=== PATIENT | female | born 1975 | race Caucasian/White ===

== ENCOUNTER 2019-12-02 13:09 | Emergency (ER) | payer OTHER, SELFPAY ==
--- NOTE | ~2019-12-02 | XR_ITS ---
EXAMINATION: XR hand RT min 3V INDICATION: Right hand pain and swelling TECHNIQUE: Three views of the right hand are obtained. COMPARISON: None available FINDINGS: There is dorsal soft tissue swelling of the hand overlying the distal metacarpals. No fract ure, dislocation, or subluxation is identified. IMPRESSION: 1. Dorsal soft tissue swelling of the hand without underlying osseous abnormality. Reviewed, dictated and finalized at location A. IMPRESSION: 1. Dorsal soft tissue swelling of the hand without underlying osseous abnormali ty.
--- NOTE | ~2019-12-02 | XR_ITS ---
EXAMINATION: XR wrist RT min 3V INDICATION: Right wrist swelling and pain TECHNIQUE: Four views of the right wrist are obtained. COMPARISON: None available FINDINGS: There is no fracture, dislocation, or subluxation. Bone alignment is normal. There is dorsa l soft tissue swelling of the hand. IMPRESSION: 1. No acute osseous abnormality. Reviewed, dictated and finalized at location A.
[2019-12-02 13:13] VITALS: BP 102/68; PULSE 113; RESP 16; TEMP 36.8; O2SAT 100
--- NOTE | 2019-12-02 13:43 | ED.GENADULT ---
HPI - General Adult General Chief complaint: Extremity Injury, Upper Stated complaint: right hand injury Time Seen by Provider: 12/02/19 13:43 Source: patient and RN notes reviewed Mode of arrival: ambulatory Limitations: no limitations History of Present Illness HPI narrative: 44-year-old female presents with complaints of right hand and wrist pain with swelling for 1 day. Lu says she fell last night while carrying groceries and extended RT hand outward to break her fall and hit hand on car causing injury to RT hand. Pain has increased throughout the day. Ibuprofen (last this morning at 07:00) and Tylenol (last today at 13:50) with some relief. No radiation of pain. No loss of mobility. Exacerbating factors consist of movement and palpation. The relieving factors is immobility. Dominant hand is the RIGHT HAND. No suspected abuse. The patient reports she have not been diagnosed with COVID-19. The patient reports she is not waiting for the results of a COVID-19 lab test. The patient reports she do not have fever, chills, weakness, fatigue, myalgia, or facial swelling. The patient reports she do not have a new or worsening cough or shortness of breath. Denies chest pain. The patient reports she do not have any rhinorrhea, congestion, sore throat, nausea, vomiting, abdominal pain, and diarrhea. Tolerating po intake well. Denies recent traveling. Denies concerns for COVID-19 or exposures been home since [id number] order except for essential household needs, working, and return home. At this time, patient is not suspected of having COVID-19. Some parts of this dictation were generated by voice recognition software and may contain typographical and/or grammatical inaccuracies. Related Data Home Medications Medication Instructions Recorded Confirmed escitalopram oxalate 20 mg PO DAILY 12/02/19 12/02/19 gabapentin 300 mg PO TID 12/02/19 12/02/19 lacosamide [Vimpat] 100 mg PO Q12H 12/02/19 12/02/19 lamotrigine 200 mg PO BID 12/02/19 12/02/19 lorazepam 0.5 mg PO BID PRN 12/02/19 12/02/19 pregabalin 75 mg PO TID 12/02/19 12/02/19 zolpidem 5 mg PO HS PRN 12/02/19 12/02/19 Allergies Allergy/AdvReac Type Severity Reaction Status Date / Time Penicillins Allergy Intermediate Swelling Verified 12/02/19 13:24 Sulfa (Sulfonamide Allergy Intermediate Swelling Verified 12/02/19 13:24 Antibiotics) tramadol Allergy Mild Rash Verified 12/02/19 13:24 Review of Systems Review of Systems: Narrative: CONSTITUTIONAL: Denies fever, chills, sweats. EYES: Denies visual changes, redness, discharge. ENT: Denies rhinorrhea, congestion, sore throat, otalgia. CARDIOVASCULAR: Denies chest pain, palpitations, edema. RESPIRATORY: Denies dyspnea, wheezing, cough. GASTROINTESTINAL: Denies abdominal pain, nausea, vomiting, diarrhea. GENITOURINARY: Denies dysuria, hematuria, abnormal discharge. SKIN: Denies rash or itching. MUSCULOSKELETAL: Denies acute back pain or myalgia. Complains of Right hand and wrist pain with swelling. NEUROLOGIC: Denies numbness or focal weakness. PSYCHIATRIC: Denies anxiety or depression. All other systems reviewed & are unremarkable except as noted in HPI and below. FORMERLY [facility] Past Medical History Medical History (Updated 12/03/19 @ 00:00 by [facility] Date[facility]za) Breast cancer Depression Epilepsy History of recent chemotherapy Finished 10/14/19 Surgical History Surgical History (Updated 12/02/19 @ 15:32 by ARVIND Gomez) History of lumpectomy of right breast History of ovarian cystectomy Bilateral 2001 and 2002 History of tubal ligation Hx of appendectomy 1993 Family History Family History (Updated 12/06/19 @ 23:49 by ARVIND Gomez) Mother Hypertension Family history of diabetes mellitus in first degree relative Interstitial lung disease Father Asthma Grandparent Carcinoma of colon Social History Social History (Updated 12/02/19 @ 15:33 by Wallace Vicente
[2019-12-02] MEDS: KETOROLAC (*BKC) 60 MG/2 ML VIAL IM (14:03)
== END 2019-12-02 14:23 | disposition home or self-care (01) ==
PROVIDERS: Emergency Provider Nurse Practitioner Family; PCP Nurse Practitioner Family
DX: S63.501A Unspecified sprain of right wrist, initial encounter (principal); S63.91XA Sprain of unspecified part of right wrist and hand, initial encounter; Z85.3 Personal history of malignant neoplasm of breast; F32.9 Major depressive disorder, single episode, unspecified; G40.909 Epilepsy, unspecified, not intractable, without status epilepticus; Z92.21 Personal history of antineoplastic chemotherapy; W01.198A Fall on same level from slipping, tripping and stumbling with subsequent striking against other object, initial encounter
CPT/HCPCS: 73110; 73130; 96372; 99213; G0463; J1885

== ENCOUNTER 2021-06-12 08:03 | Emergency (ER) | payer OTHER, SELFPAY ==
[2021-06-12 08:10] VITALS: BP 113/80; PULSE 98; RESP 20; TEMP 36.7; O2SAT 100
--- NOTE | 2021-06-12 08:19 | ED.ALLEREA ---
HPI - Allergic Reaction General Chief complaint: Allergic Reaction Stated complaint: allergic reaction History of Present Illness HPI narrative: This is a 45-year-old female presents to the urgent care with an allergic reaction states that it started today she took nothing for her symptoms patient states she woke up with whelps and itching on her abdomen as well as her tongue feels thick and she feels like her tongue is itching. Patient denies using anything new no new medications no new perfumes no new lotions no new soaps no new detergents does not know what it is from patient states that she has had this happen recently last week Related Data Home Medications Medication Instructions Recorded Confirmed escitalopram oxalate 20 mg PO DAILY 12/02/19 12/02/19 gabapentin 300 mg PO TID 12/02/19 12/02/19 lacosamide [Vimpat] 100 mg PO Q12H 12/02/19 12/02/19 lamotrigine 200 mg PO BID 12/02/19 12/02/19 lorazepam 0.5 mg PO BID PRN 12/02/19 12/02/19 pregabalin 75 mg PO TID 12/02/19 12/02/19 zolpidem 5 mg PO HS PRN 12/02/19 12/02/19 Allergies Allergy/AdvReac Type Severity Reaction Status Date / Time Penicillins Allergy Intermediate Difficulty Verified 06/12/21 08:40 Breathing Sulfa (Sulfonamide Allergy Intermediate Swelling Verified 06/12/21 08:40 Antibiotics) tramadol Allergy Mild Rash Verified 06/12/21 08:40 Review of Systems Eyes: Comments: Urticaria, whelps, complaint feeling tongue itchy and slightly swollen All other extremities reviewed and are negative [facility] Past Medical History Medical History (Updated 06/12/21 @ 09:04 by Dianne Hickey NP) Breast cancer Depression Epilepsy History of recent chemotherapy Finished 10/14/19 Surgical History Surgical History (Updated 12/02/19 @ 15:32 by ARVIND Gomez) History of lumpectomy of right breast History of ovarian cystectomy Bilateral 2001 and 2002 History of tubal ligation Hx of appendectomy 1993 Family History Family History (Updated 12/06/19 @ 23:49 by ARVIND Gomez) Mother Hypertension Family history of diabetes mellitus in first degree relative Interstitial lung disease Father Asthma Grandparent Carcinoma of colon Social History Social History (Updated 12/02/19 @ 15:33 by ARVIND Gomez) Smoking status: Never smoker Second hand tobacco smoke exposure: No Alcohol intake: never Gender identity (if verbalized by the patient): Female Comments At time as signature, I have reviewed and agree with nursing past medical, social, surgical and family history. Please see nursing chart for further information. There is no relevant family history pertinent to the presenting complaint. Exam Narrative: GENERAL:Well-appearing, well-nourished, and in no acute distress. HEAD:Normocephalic, atraumatic. EYES: PERRLA and EOMI. ENT: Nares clear, no rhinorrhea or epistaxis. Mucous membranes moist. CHEST: Clear to auscultation. No respiratory distress. HEART: Regular rate and rhythm. Normal peripheral pulses. ABDOMEN: Soft, nontender, nondistended, normal active bowel sounds. EXTREMITIES: Normal range of motion. No edema. SKIN: Warm, dry, positive for itching, whelps all over her body mainly her abdomen small bumps noted on time with urticaria rash. NEURO: No focal deficits. Alert and oriented x3. Course Vital Signs Vital signs: Vital Signs Temperature 98.0 F 06/12/21 08:10 Pulse Rate 98 06/12/21 08:10 Respiratory Rate 20 06/12/21 08:10 Blood Pressure 113/80 06/12/21 08:10 Pulse Oximetry 100 06/12/21 08:10 Temperature 98.0 F 06/12/21 08:10 Pulse Rate 98 06/12/21 08:10 Respiratory Rate 20 06/12/21 08:10 Blood Pressure 113/80 06/12/21 08:10 Pulse Oximetry 100 06/12/21 08:10 MDM - Allergic Reaction Differential Diagnosis Differential diagnosis: Likely anaphylaxis, allergic reaction, angioedema, contact dermatitis and adverse reaction to drug Discharge
[2021-06-12] MEDS: diphenhydrAMINE HCl CAP 25 MG CAPSULE 50 MG PO (08:30)
== END 2021-06-12 09:05 | disposition home or self-care (01) ==
PROVIDERS: Emergency Provider Nurse Practitioner Family; PCP Nurse Practitioner Family
DX: L50.0 Allergic urticaria (principal); Z85.3 Personal history of malignant neoplasm of breast; G40.909 Epilepsy, unspecified, not intractable, without status epilepticus; F32.A Depression, unspecified; Z92.21 Personal history of antineoplastic chemotherapy
CPT/HCPCS: 96372; 99213; A9270; G0463; J1100

== ENCOUNTER 2022-03-17 15:14 | Emergency (ER) | payer OTHER, SELFPAY ==
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
[2022-03-17 15:20] VITALS: BP 128/95; PULSE 102; RESP 14; TEMP 36.6; O2SAT 100
== END 2022-03-17 16:41 | disposition home or self-care (01) ==
PROVIDERS: Emergency Provider Nurse Practitioner Family; PCP Nurse Practitioner Family
DX: S22.41XA Multiple fractures of ribs, right side, initial encounter for closed fracture (principal); V48.5XXA Car driver injured in noncollision transport accident in traffic accident, initial encounter; F32.A Depression, unspecified; G40.909 Epilepsy, unspecified, not intractable, without status epilepticus; Z85.3 Personal history of malignant neoplasm of breast; Z90.11 Acquired absence of right breast and nipple; Z92.21 Personal history of antineoplastic chemotherapy
CPT/HCPCS: 71101; 99213; G0463

== ENCOUNTER 2022-04-10 16:39 | Emergency (ER) | payer OTHER, SELFPAY ==
[2022-04-10 16:46] VITALS: BP 112/77; PULSE 106; RESP 16; TEMP 37.3; O2SAT 100
--- NOTE | 2022-04-10 16:58 | ED.EXTPRO ---
HPI - Extremity Problem General Chief complaint: Extremity Problem,Nontraumatic Stated complaint: Right foot big toe pain Time Seen by Provider: 04/10/22 16:50 Source: patient Mode of arrival: ambulatory Limitations: no limitations History of Present Illness HPI Narrative: Ms. Morillo is a 46-year-old female patient presenting to the clinic today with complaints of right great toe pain x2 days. She reports that that she initially thought she may have a ingrown toenail infection however the pain has went to the joint and is very tender and painful. Reports a lot of pain with movement. Related Data Home Medications Medication Instructions Recorded Confirmed escitalopram oxalate 20 mg tablet 20 mg PO DAILY 12/02/19 04/10/22 lamotrigine 200 mg tablet 200 mg PO BID 12/02/19 04/10/22 zolpidem 5 mg tablet 5 mg PO HS PRN Sleep 12/02/19 04/10/22 Allergies Allergy/AdvReac Type Severity Reaction Status Date / Time Penicillins Allergy Intermediate Difficulty Verified 03/17/22 15:27 Breathing Sulfa (Sulfonamide Allergy Intermediate Swelling Verified 03/17/22 15:27 Antibiotics) tramadol Allergy Mild Rash Verified 03/17/22 15:27 Review of Systems Review of Systems: Pertinent positives per HPI. Patient denies any fever, chills, rash, headache, visual changes, dizziness, cough, runny nose, sore throat, shortness of breath, chest pain, palpitations, nausea, vomiting, diarrhea, constipation, abdominal pain, or any urinary issues. PMF Past Medical History Medical History Breast cancer Depression Epilepsy History of recent chemotherapy Finished 10/14/19 Surgical History Surgical History History of lumpectomy of right breast History of ovarian cystectomy Bilateral 2001 and 2002 History of tubal ligation Hx of appendectomy 1993 Family History Family History Mother Hypertension Family history of diabetes mellitus in first degree relative Interstitial lung disease Father Asthma Grandparent Carcinoma of colon Social History Social History (Reviewed 04/10/22 @ 17:09 by Yinka Blancas APRNKinza Smoking status: Never smoker Second hand tobacco smoke exposure: No Alcohol intake: never Gender identity (if verbalized by the patient): Female Comments At the time of my signature, I reviewed and agree with the nursing past medical, surgical, social, and family history. There is no relevant family history pertinent to the patient complaint. Exam Narrative: General: Well-developed, well nourished, in no apparent distress Head: Normocephalic, atraumatic. Cardio: Regular rate and rhythm, s1 and s2 normal, no murmur appreciated. Resp: Clear to auscultation bilaterally, no rhonchi, rales, wheezing or rubs. Musculoskeletal: No deformity, redness, mild erythema, and swelling to the proximal joint of the right great toe, very painful to palpation and is unable to flex or extend the toe against resistance due to pain , muscle strength strong and equal, peripheral pulse strong, no edema, no cyanosis, normal gait and station Course Course Emergency Course: Portions of this record may have been created with voice recognition software. Level of Care: Express Care Visit Vital Signs Vital signs: Vital Signs Temperature 37.3 C 04/10/22 16:46 Pulse Rate 106 H 04/10/22 16:46 Respiratory Rate 16 04/10/22 16:46 Blood Pressure 112/77 04/10/22 16:46 Pulse Oximetry 100 04/10/22 16:46 Oxygen Delivery Room Air 04/10/22 16:46 Temperature 37.3 C 04/10/22 16:46 Pulse Rate 106 H 04/10/22 16:46 Respiratory Rate 16 04/10/22 16:46 Blood Pressure 112/77 04/10/22 16:46 Pulse Oximetry 100 04/10/22 16:46 Oxygen Delivery Room Air 04/10/22 16:46 Vital signs reviewed MDM - Extremity
== END 2022-04-10 17:10 | disposition home or self-care (01) ==
PROVIDERS: Emergency Provider Nurse Practitioner Family; PCP Nurse Practitioner Family
DX: M79.674 Pain in right toe(s) (principal); G40.909 Epilepsy, unspecified, not intractable, without status epilepticus; Z85.3 Personal history of malignant neoplasm of breast; Z92.21 Personal history of antineoplastic chemotherapy
CPT/HCPCS: 99213; G0463

== ENCOUNTER 2023-06-01 12:49 | Emergency (ER) | payer OTHER, SELFPAY ==
--- NOTE | ~2023-06-01 | XR_ITS ---
EXAMINATION: XR ribs RT 2V w CXR 2V INDICATION: Chest pain after fall TECHNIQUE: PA and lateral views of the chest and 3 views of the right ribs were obtained. COMPARISON: 03/02/2013 FINDINGS: The lungs are free of acute opacities. No pleural effusion or pneumothorax. An implant and surgical clips are noted in the right breast. There also appear to be surgical changes of the left br east. Healed left rib fractures are noted. No acute right rib fractures are seen. IMPRESSION: 1. No acute cardiopulmonary abnormality or evidence of displaced rib fracture. Reviewed, dictated and finalized at location A. SALTER
[2023-06-01 13:05] VITALS: BP 134/92; PULSE 110; RESP 20; TEMP 37.8; O2SAT 100
--- NOTE | 2023-06-01 13:31 | ED.BACK ---
HPI - Back Pain/Injury General Chief Complaint: Back Pain/Injury Stated Complaint: Fall Injury/Right Rib Pain Source: patient and RN notes reviewed History of Present Illness HPI Narrative: 47 yo F presents to urgent care with complaints of right mid back pain and right lateral rib pain. Pt states she fell backwards on the ice while ice skating 1 week ago. Pt denies any head injury or neck pain. Pt reports increased pain with deep inhalation, coughing, and any movements of her torso or right arm. Pt was noted to have a slight fever in clinic. Pt admits to having a sore throat x 2-3 days. Pt states her son had strep throat a couple weeks ago. Denies any ear pain, SOB, chest pain, N/V/D, or abdominal pain. Pt has been taking ibuprofen and Tylenol at home with minimal relief of pain. Related Data Home Medications Medication Instructions Recorded Confirmed escitalopram oxalate 20 mg tablet 20 mg PO DAILY 12/02/19 04/10/22 lamotrigine 200 mg tablet 200 mg PO BID 12/02/19 04/10/22 zolpidem 5 mg tablet 5 mg PO HS PRN Sleep 12/02/19 04/10/22 Allergies Allergy/AdvReac Type Severity Reaction Status Date / Time Penicillins Allergy Intermediate Difficulty Verified 03/17/22 15:27 Breathing Sulfa (Sulfonamide Allergy Intermediate Swelling Verified 03/17/22 15:27 Antibiotics) tramadol Allergy Mild Rash Verified 03/17/22 15:27 Review of Systems Review of Systems: CONSTITUTIONAL: Denies fever, chills, or sweats. EYES: Denies visual changes, redness, or discharge. ENT: Denies otalgia CARDIOVASCULAR: Denies chest pain, palpitations, or edema. RESPIRATORY: Denies dyspnea. GASTROINTESTINAL: Denies abdominal pain, nausea, vomiting, or diarrhea. GENITOURINARY: Denies dysuria or hematuria. SKIN: Denies rash or itching. MUSCULOSKELETAL: Right mid back pain NEUROLOGIC: Denies headache, numbness, or weakness. Pertinent positives per HPI. [facility] Past Medical History Medical History Breast cancer Depression Epilepsy History of recent chemotherapy Finished 10/14/19 Surgical History Surgical History History of lumpectomy of right breast History of ovarian cystectomy Bilateral 2001 and 2002 History of tubal ligation Hx of appendectomy 1993 Family History Family History Mother Hypertension Family history of diabetes mellitus in first degree relative Interstitial lung disease Father Asthma Grandparent Carcinoma of colon Social History Social History Smoking status: Never smoker Second hand tobacco smoke exposure: No Alcohol intake: never Living arrangements: with family Gender identity (if verbalized by the patient): Female Comments At the time of my signature, I reviewed and agree with the nursing past medical, surgical, social, and family history. There is no relevant family history pertinent to the patient complaint. Exam Narrative: GENERAL: This is a well-nourished, well-developed patient, in no apparent distress. HEAD: normocephalic, atraumatic. EYES: Sclera clear/white. Vision is grossly intact. EARS: External ears normal, auditory canals clear and without drainage, TMs normal without perforation. Hearing grossly intact. NOSE: External nose normal with no obvious nasal discharge, nares without redness, no rhinorrhea. THROAT: Mucous membranes moist, posterior pharynx erythremic. NECK: Neck supple, non-tender without lymphadenopathy, masses or thyromegaly. CARDIOVASCULAR: Regular rate and rhythm without murmurs, gallops, or rubs. RESPIRATORY: Clear to auscultation. Breath sounds equal bilaterally. No wheezes, rales, or rhonchi. GASTROINTESTINAL: Abdomen soft, non-tender, nondistended. Bowel sounds are active. No hepato-splenomegaly, or pa
== END 2023-06-01 14:00 | disposition home or self-care (01) ==
PROVIDERS: Emergency Provider Nurse Practitioner Family; PCP Nurse Practitioner Family
DX: B34.9 Viral infection, unspecified (principal); S20.211A Contusion of right front wall of thorax, initial encounter; Z85.3 Personal history of malignant neoplasm of breast; W00.0XXA Fall on same level due to ice and snow, initial encounter; Y93.21 Activity, ice skating
CPT/HCPCS: 71046; 71100; 87081; 87880; 99213; G0463

== ENCOUNTER 2024-07-08 17:21 | Emergency (ER) | payer OTHER, SELFPAY ==
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
[2024-07-08 17:34] VITALS: BP 126/92; PULSE 103; RESP 16; TEMP 36.9; O2SAT 96
== END 2024-07-08 17:45 | disposition short-term general hospital (02) ==
PROVIDERS: Emergency Provider Nurse Practitioner; PCP Nurse Practitioner Family
DX: S09.90XA Unspecified injury of head, initial encounter (principal); Y04.0XXA Assault by unarmed brawl or fight, initial encounter; G40.909 Epilepsy, unspecified, not intractable, without status epilepticus; F32.A Depression, unspecified; Z85.3 Personal history of malignant neoplasm of breast; Z90.11 Acquired absence of right breast and nipple; Z92.21 Personal history of antineoplastic chemotherapy
CPT/HCPCS: 99212; G0463

== ENCOUNTER 2024-08-23 15:46 | Emergency (ER) | payer OTHER, SELFPAY ==
--- NOTE | ~2024-08-23 | XR_ITS ---
EXAMINATION: XR foot LT min 3V DATE: 08/23/2024 16:21 INDICATION: Left foot injury post fall down steps TECHNIQUE: Dorsoplantar, two oblique and lateral views of the left foot were obtained. COMPARISON: None. FINDINGS: Bone alignment is normal. Suggestion of an old healed fracture of the second metatarsal diaphysis. No acute fractures. Mild osteoarthritis at the tarsometatarsal, metatarsophalangeal and interphalangeal joints. Soft tissues are unremarkable. IMPRESSION: 1. Mild polyarticular osteoarthritis in the mid and forefoot. No acute osseous abnormality. Reviewed, dictated and finalized at location A. CAL CLAIMS EXAMINER
[2024-08-23 15:58] VITALS: BP 100/62; PULSE 112; RESP 16; TEMP 36.7; O2SAT 99
--- NOTE | 2024-08-23 16:23 | ED_ITS ---
HPI - Extremity Injury (Lower) General Chief Complaint: Extremity Injury, Lower Stated Complaint: Fall Injury/Left Foot Time Seen by Provider: 08/23/24 16:25 Source: patient, RN notes reviewed and old records reviewed Mode of arrival: ambulatory (placed in wheelchair on arrival) Limitations: no limitations History of Present Illness HPI Narrative: 49 year old female who presents to [facility] with complaints of falling down stairs at home at 0400 this morning. Patient reports that she had lotion on her feet and she thinks that may of caused her to slip down the 2 steps. Patient reports pain to the dorsal area of her left foot no bruising or obvious deformity noted, strong pedal pulse left foot. MD complaint: foot injury (left) Onset (ago): day(s) (fell down 2 steps atabout 0400) Injury: Left: foot (dorsal) Type of Injury: blunt Place: home Severity: moderate Exacerbating factors: weight bearing and movement Treatments prior to arrival: cold therapy, NSAIDS and other (Tylenol) Related Data Home Medications ?Medication ?Instructions ?Recorded ?Confirmed ?Last Taken ?Type escitalopram oxalate 20 mg tablet 20 mg PO DAILY 12/02/19 04/10/22 Unknown History lamotrigine 200 mg tablet 200 mg PO BID 12/02/19 04/10/22 Unknown History zolpidem 5 mg tablet 5 mg PO HS PRN Sleep 12/02/19 04/10/22 Unknown History bupropion HCl 150 mg tablet,12 hr mg PO 07/08/24 Unknown History sustained-release Allergies Allergy/AdvReac Type Severity Reaction Status Date / Time Penicillins Allergy Intermediate Difficulty Verified 03/17/22 15:27 Breathing Sulfa (Sulfonamide Allergy Intermediate Swelling Verified 03/17/22 15:27 Antibiotics) tramadol Allergy Mild Rash Verified 03/17/22 15:27 Review of Systems Review of Systems: CONSTITUTIONAL: Denies fever, chills, or sweats. EYES: Denies visual changes, redness, or discharge. ENT: Denies rhinorrhea, congestion, sore throat, or otalgia. CARDIOVASCULAR: Denies chest pain, palpitations, or edema. RESPIRATORY: Denies cough or dyspnea. GASTROINTESTINAL: Denies abdominal pain, nausea, vomiting, or diarrhea. GENITOURINARY: Denies dysuria or hematuria. SKIN: Denies rash or itching. MUSCULOSKELETAL: Denies back pain, positive for pain to the dorsal aspect of le ft foot., or myalgia. NEUROLOGIC: Denies headache, numbness, or weakness. PSYCHIATRIC: Reports history of anxiety or depression. All systems reviewed & are unremarkable except as noted in HPI and below PMFSH Past Medical History Medical History Depression Epilepsy History of recent chemotherapy Finished 10/14/19 Breast cancer Surgical History Surgical History History of ovarian cystectomy Bilateral 2001 and 2002 History of tubal ligation Hx of appendectomy 1993 History of lumpectomy of right breast Family History Family History Mother Hypertension Family history of diabetes mellitus in first degree relative Interstitial lung disease Father Asthma Grandparent Carcinoma of colon Social History Social History Smoking status: Never smoker Second hand tobacco smoke exposure: No Alcohol intake: never Living arrangements: with family Gender identity (if verbalized by the patient): Female Comments At time of signature, agree with nursing past medical, surgical, social and f amily history. There is no relevant family history pertinent to the presenting complaint Exam Narrative: GENERAL: Well-appearing, well-nourished, and in no acute distress. HEAD: Normocephalic, atraumatic. EYES: PERRLA and EOMI. ENT: Nares clear, no rhinorrhea or epistaxis. Mucous membranes moist. NECK: Supple.no lymphadenopathy CHEST: Clear to auscultation. No respiratory distress. SAO2 99% on room air HEART: Regular rate and rhythm. No murmur heard. Normal peripheral pulses. ABDOMEN: Soft, nontender, nondistended, normal active bowel sounds. EXTREMITIES: Normal range of motion. No edema.pain to the dorsal aspect of her left foot minimal swelling no bruising noted, patient is able to flex and extend toes circulation and sensation is intact. SKIN: Warm, dry, no rash. NEURO: No focal deficits. Alert and oriented x3. Course Course Emergency Course: Patient is aware of diagnosis, understands and agrees to treatment plan.? Anticipatory guidance given.? Patient agrees to follow-up as directed and is aware of reasons to seek care at the emergency department. Portions of this record may have been created with voice recognition software Level of Care: Express Care Visit Vital Signs Vital signs: Vital Signs Temperature 36.7 C 08/23/24 15:58 Pulse Rate 112 H 08/23/24 15:58 Respiratory Rate 16 08/23/24 15:58 Blood Pressure 100/62 08/23/24 15:58 Pulse Oximetry 99 08/23/24 15:58 Oxygen Delivery Room Air 08/23/24 15:58 Temperature 36.7 C 08/23/24 15:58 Pulse Rate 112 H 08/23/24 15:58 Respiratory Rate 16 08/23/24 15:58 Blood Pressure 100/62 08/23/24 15:58 Pulse Oximetry 99 08/23/24 15:58 Oxygen Delivery Room Air 08/23/24 15:58 Reviewed MDM - Extremity Injury (Lower) Differential Diagnosis Differential diagnosis: Likely other (foot fracture, pain to left foot, contusion of left dorsal foot,) Medical Records Attestation: I reviewed the patient's medical records. Imaging Data Attestation: I personally reviewed and interpreted this imaging study as follows: My impression: no acute osseous abnormality some mild osteoarthritis to mid and forefoot left foot Radiologist's impression: Launch?Image [facility] [employer] [place] [id number] XRay Report Signed Patient: Lu Morillo : 1975 MR#: [id number] Age: 49 Acct:[id number] Loc: [facility] ADM Date: 08/23/24Attending Dr: Ordering Physician: Harriet Ramos APRN Date of Service: 08/23/24 Procedure(s): XR foot LT min 3V Accession Number(s): [id number] cc: ALETA,ARIANNE MEDINA; Harriet Ramos APRN~ EXAMINATION: XR foot LT min 3V DATE: 08/23/2024 16:21 INDICATION: Left foot injury post fall down steps TECHNIQUE: Dorsoplantar, two oblique and lateral views of the left foot were obtained. COMPARISON: None. FINDINGS: Bone alignment is normal. Suggestion of an old healed fracture of the second metatarsal diaphysis. No acute fractures. Mild osteoarthritis at the tarsometatarsal, metatarsophalangeal and interphalangeal joints. Soft tissues are unremarkable. IMPRESSION: 1. Mild polyarticular osteoarthritis in the mid and forefoot. No acute osseous abnormality. Reviewed, dictated and finalized at location A. F BUSINESS DEVELOPMENT OFFICER Please be advised this is a medical document. It is intended for [id number] communication. It is written in medical language and may contain unfamiliar abbreviations or verbiage. Medical documents are intended to carry relevant information, facts as evident, and the clinical opinion of the practitioner at the time of the encounter. This report may have been done utilizing a voice recognition system. Attempts have been made to correct errors. However, there may be uncorrected grammatical, spelling, and recognition errors present. The file time of this note does not necessarily represent the time of service. Dictated By: Zay Sarabia MD 08/23/24 1622 Signed By: <Electronically signed by Zay Sarabia MD in OV> Critical Care Time Critical Care Time Critical Care Time: No Discharge Plan Discharge Clinical Impression: Contusion of foot, left Qualifiers: Encounter type: initial encounter Qualified Code(s): S90.32XA - Contusion of left foot, initial encounter Patient Disposition: Home, Self-Care Condition: Stable Instructions: Antibiotic Form, Foot Contusion (ED) Additional Instructions: Elastic wrap or orthopedic splint as directed for comfort for the next 5-7 days Tylenol for lesser pain Ibuprofen regularly for the next 2-3 days for the inflammation keep left foot elevated as much as possible for the next few days Follow-up with orthopedic surgeon if no improvement in symptoms Follow-up with PCP if further problems or concerns Ice to the area 20-30 minutes 4-6 times a day Elevate above heart If your symptoms persist, change or worsen significantly before you can contact your personal physician then please, without delay[facility] Follow-up with PCP in 7-10 days or sooner if needed Patient Language: Ukrainian Prescriptions: No Action cetirizine [Zyrtec] 10 mg tablet 10 mg PO DAILY PRN (Reason: angioedema) Qty: 30 0RF colchicine [Colcrys] 0.6 mg tablet 0.6 mg PO DAILY Qty: 3 0RF Rx Instructions: take 2 tabs (1.2mg)x1 dose then take 1 tab (0.6mg)one hour later prednisone 20 mg tablet 40 mg PO DAILY 5 Days Qty: 10 0RF cyclobenzaprine 10 mg tablet 10 mg PO TID PRN (Reason: muscle spasm) Qty: 10 0RF hydrocodone-acetaminophen 5-325 mg tablet 1 tablet PO Q6H PRN (Reason: pain) Qty: 14 0RF zolpidem 5 mg Tablet 5 mg PO HS PRN (Reason: Sleep) lamotrigine 200 mg Tablet 200 mg PO BID escitalopram oxalate 20 mg Tablet 20 mg PO DAILY bupropion HCl 150 mg tablet sustained-release 12 hr PO Follow-up/Referrals: Alarcon,Arianne Parks APN [Primary Care Provider] - Time of Disposition: 16:41 Quality [place] Coma Scale Eyes: Open Verbal: Oriented and Alert Motor: Follows Commands Jose Coma Total Score: 15
--- OUTSIDE RECORDS SUMMARY | 2024-08-23 18:09 | XMS_ITS | Encounter Summary ---
Author Organization [facility] Address [address] [place] [address] Phone Care Team Providers Care Appointment Setter Name Role Phone Jack Dukes MD Unavailable [phone] Arianne Alarcon APRN, CARTON MAKING MACHINE OPERATOR Primary Care Provider [phone] Lito Chatterjee MD Unavailable [phone] Gustabo Falk MD Unavailable [phone] Amrit Goddard MD Unavailable Phan Grant MD Unavailable [phone] Reason for Visit * Reason Comments Medication Refill Encounter Details Date Type Department Care Team (Late st Contact Info) Description 12/06/2020 Refill [facility] - Neurology - [place] [address] [place] [address] Jack Dukes MD [address] [place] [address] Medication Refill Social History Tobacco Use Types Packs/Day Years Used Date Smoking Tobacco: Never Smokeless Tobacco: Never Alcohol Use Standard Drinks/Week Comments No 0 (1 standard drink = 0.6 oz pur e alcohol) Comments No Sex and Gender Information Value Date Recorded Sex Assigned at Not on file Legal Sex Female 2:52 AM COMMERCIAL FINANCE MANAGER Gender Identity Not on file Sexual Orientation Not on file 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 No / Unsure 11/20/2020 6:52 AM CDT documented as of this encounter Plan of Treatment Upcoming Encounters Date Type Department Care Team (Late st Contact Info) Description 08/24/2024 2:45 PM COMMERCIAL FINANCE MANAGER Telemedicine [facility] Neurology [facility] [address] [place] [address] Jack Dukes MD [address] [place] [address] 08/26/2024 1:20 PM COMMERCIAL FINANCE MANAGER Office Visit [facility] Oncology Services [address] [place] [id number] Phan Grant MD [address] [place], [place] [id number] Discharge Disposition: Discharged to home or Selfcare documented as of this encounter Visit Diagnoses Diagnosis 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) documented in this encounter Care Teams Appointment Setter Relationship Specialty Start Date End Date Arianne Alarcon APRN, ROMEL [address] [place] [address] PCP - General Family Medicine 08/29/16 Jack Dukes MD [address] [place] [address] Consulting Physician Neurology 08/21/16 Lito Chatterjee MD [address] [place] [address] Consulting Physician General Surgery 04/27/19 Gustabo Falk MD [address] [address] Consulting Physician Radiation Oncology 04/27/19 Amrit Goddard MD [address] [address] Consulting Physician General Surgery 06/08/19 Phan Grant MD [address] [place] [address] Consulting Physician Medical Oncology 02/16/20 documented as of this encounter
--- OUTSIDE RECORDS SUMMARY | 2024-08-23 18:09 | XMS_ITS | Encounter Summary ---
Author Organization [facility] Address [address] [place] [address] Phone Care Team Providers Care Crop And Soil Technician Name Role Phone Jack Dukes MD Unavailable [phone] Arianne Alarcon APRN, RV REPAIRER Primary Care Provider [phone] Lito Chatterjee MD Unavailable [phone] Gustabo Falk MD Unavailable [phone] Amrit Goddard MD Unavailable Phan Grant MD Unavailable [phone] Reason for Visit * Reason Comments Medication Refill Encounter Details Date Type Department Care Team (Late st Contact Info) Description 11/17/2020 Refill [facility] - Neurology - [place] [address] [place] [address] Jack Dukes MD [address] [place] [address] Medication Refill Social History Tobacco Use Types Packs/Day Years Used Date Smoking Tobacco: Never Smokeless Tobacco: Never Alcohol Use Standard Drinks/Week Comments No 0 (1 standard drink = 0.6 oz pur e alcohol) Comments No Sex and Gender Information Value Date Recorded Sex Assigned at Not on file Legal Sex Female 2:52 AM [employer] Gender Identity Not on file Sexual Orientation Not on file 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 Not on file Not on file Not [...] st Contact Info) Description 08/24/2024 2:45 PM [employer] Telemedicine [facility] Neurology [facility] [address] [place] [address] Jack Dukes MD [address] [place] [address] 08/26/2024 1:20 PM [employer] Office Visit [facility] Oncology Services [address] [place] [id number] Phan Grant MD [address] [place], [place] [id number] Discharge Disposition: Discharged to home or Selfcare documented as of this encounter Visit Diagnoses Diagnosis Seizures (HCC) Other convulsions documented in this encounter Care Teams Crop And Soil Technician Relationship Specialty Start Date End Date Arianne Alarcon APRN, ROMEL [address] [place] [address] PCP - General Family Medicine 08/29/16 Jack Dukes MD [address] [place] [address] Consulting Physician Neurology 08/21/16 Lito Chatterjee MD [address] [place] [address] Consulting Physician General Surgery 04/27/19 Gustabo Falk MD [address] [address] Consulting Physician Radiation Oncology 04/27/19 Amrit Goddard MD [address] [address] Consulting Physician General Surgery 06/08/19 Phan Grant MD [address] [place] [address] Consulting Physician Medical Oncology 02/16/20 documented as of this encounter
--- OUTSIDE RECORDS SUMMARY | 2024-08-23 18:09 | XMS_ITS | Encounter Summary ---
Author Organization [facility] Address [address] [place] [address] Phone Care Team Providers Care Marketing Effectiveness Manager Name Role Phone Jack Dukes MD Unavailable [phone] Arianne Alarcon APRN, TERRITORY MANAGER GENERAL SALES Primary Care Provider [phone] Lito Chatterjee MD Unavailable [phone] Gustabo Falk MD Unavailable [phone] Amrit Goddard MD Unavailable Phan Grant MD Unavailable [phone] Reason for Visit * Reason Comments Medication Refill Encounter Details Date Type Department Care Team (Late st Contact Info) Description 05/30/2021 Refill [facility] - Neurology [facility] [address] [place] [address] Jack Dukes MD [address] [place] [address] Medication Refill Social History Tobacco Use Types Packs/Day Years Used Date Smoking Tobacco: Never Smokeless Tobacco: Never Alcohol Use Standard Drinks/Week Comments No 0 (1 standard drink = 0.6 oz pur e alcohol) Comments No Sex and Gender Information Value Date Recorded Sex Assigned at Not on file Legal Sex Female 2:52 AM BOARD CERTIFIED FAMILY PHYSICIAN Gender Identity Not on file Sexual Orientation Not on file 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 No / Unsure 05/22/2021 11:16 PM BOARD CERTIFIED FAMILY PHYSICIAN documented as of this encounter Plan of Treatment Upcoming Encounters Date Type Department Care Team (Late st Contact Info) Description 08/24/2024 2:45 PM BOARD CERTIFIED FAMILY PHYSICIAN Telemedicine [facility] [address] [place] [address] Jack Dukes MD [address] [place] [address] 08/26/2024 1:20 PM BOARD CERTIFIED FAMILY PHYSICIAN Office Visit 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) documented in this encounter Care Teams Marketing Effectiveness Manager Relationship Specialty Start Date End Date Arianne Alarcon APRN, CNP [address] [place] [address] PCP - General Family Medicine 08/29/16 Jack Dukes MD [address] [place] [address] Consulting Physician Neurology 08/21/16 Lito Chatterjee MD [address] [place] [address] Consulting Physician General Surgery 04/27/19 Gustabo Falk MD [address] [address] Consulting Physician Radiation Oncology 04/27/19 Amrit Goddard MD [address] [address] Consulting Physician General Surgery 06/08/19 Phan Grant MD [address] [place] [address] Consulting Physician Medical Oncology 02/16/20 documented as of this encounter
--- OUTSIDE RECORDS SUMMARY | 2024-08-23 18:09 | XMS_ITS | Encounter Summary ---
Author Organization [facility] Address [address] [facility] [place] [address] Phone Care Team Providers Care Public Policy Professor Name Role Phone Jack Dukes MD Unavailable [phone] Arianne Alarcon APRN, CNP Primary Care Provider [phone] Lito Chatterjee MD Unavailable [phone] Gustabo Falk MD Unavailable [phone] Amrit Goddard MD Unavailable Phan Grant MD Unavailable [phone] Reason for Visit * Reason Comments Medication Refill Encounter Details Date Type Department Care Team (Late st Contact Info) Description 06/20/2020 [facility] [address] [place] [address] Phan Grant MD [address] [place] [address] Medication Refill Social History Tobacco Use Types Packs/Day Years Used Date Smoking Tobacco: Never Smokeless Tobacco: Never Alcohol Use Standard Drinks/Week Comments No 0 (1 standard drink = 0.6 oz pur e alcohol) Comments No Sex and Gender Information Value Date Recorded Sex Assigned at Not on file Legal Sex Female 2:52 AM EMBROIDERY SUPERVISOR Gender Identity Not on file Sexual Orientation Not on file 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 No / Unsure 06/08/2020 9:05 AM EMBROIDERY SUPERVISOR documented as of this encounter Miscellaneous Notes * Telephone Encounter - Nikki Martin RN - 06/21/2020 2:16 PM EMBROIDERY SUPERVISOR Lorazepam called into pharmacy previous refill not received by pharmacy OIDERY SUPERVISOR documented in this encounter Plan of Treatment Upcoming Encounters Date Type Department Care Team (Late st Contact Info) Description 08/24/2024 2:45 PM EMBROIDERY SUPERVISOR Telemedicine [facility] Neurology [facility] #2 [place] [address] Jack Dukes MD [address]2 [place] [address] 08/26/2024 1:20 PM EMBROIDERY SUPERVISOR Office Visit [facility] Oncology Services [address] [place] [address] Phan Grant MD [address] [place] [address] Discharge Disposition: Discharged to home or Selfcare documented as of this encounter Visit Diagnoses Not on filedocumented in this encounter Care Teams Public Policy Professor Relationship Specialty Start Date End Date Arianne Alarcon APRN, ARCHITECT NAVAL [address] [place] [id number] PCP - General Family Medicine 08/29/16 Jack Dukes MD [address] [place] [address] Consulting Physician Neurology 08/21/16 Lito Chatterjee MD [address] [place] [address] Consulting Physician General Surgery 04/27/19 Gustabo Falk MD [address] [place] [address] Consulting Physician Radiation Oncology 04/27/19 Amrit Goddard MD [address] [address] Consulting Physician General Surgery 06/08/19 Phan Grant MD [address] [place] [address] Consulting Physician Medical Oncology 02/16/20 documented as of this encounter
--- OUTSIDE RECORDS SUMMARY | 2024-08-23 18:10 | XMS_ITS | Encounter Summary ---
Author Organization [facility] Address [address] [place] [address] Phone Care Team Providers Care Site Physician Name Role Phone Jack Dukes MD Unavailable [phone] Arianne Alarcon APRN, AIRCRAFT INSPECTOR Primary Care Provider [phone] Lito Chatterjee MD Unavailable [phone] Gustabo Falk MD Unavailable [phone] Amrit Goddard MD Unavailable Phan Grant MD Unavailable [phone] Reason for Visit * Reason Comments Medication Refill Encounter Details Date Type Department Care Team (Late st Contact Info) Description 06/26/2022 Refill [facility] - Neurology [facility] #2 [place] [address] Jack Dukes MD [address] [place] [address] Medication Refill Social History Tobacco Use Types Packs/Day Years Used Date Smoking Tobacco: Never Smokeless Tobacco: Never Alcohol Use Standard Drinks/Week Comments No 0 (1 standard drink = 0.6 oz pur e alcohol) Comments No Sex and Gender Information Value Date Recorded Sex Assigned at Not on file Legal Sex Female 2:52 AM MICROSTRATEGY BI DEVELOPER Gender Identity Not on file Sexual Orientation Not on file 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 file Not on file Not on file documented as of this encounter Plan of Treatment Upcoming Encounters Date Type Department Care Team (Late st Contact Info) Description 08/24/2024 2:45 PM MICROSTRATEGY BI DEVELOPER Telemedicine [facility] #2 [place] [address] Jack Dukes MD [address] [place] [address] 08/26/2024 1:20 PM MICROSTRATEGY BI DEVELOPER Office Visit [facility] Oncology Services [address] [place] [address] Phan Grant MD [address] [place], [place] [address] Discharge Disposition: Discharged to home or Selfcare documented as of this encounter Visit Diagnoses Diagnosis 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) documented in this encounter Care Teams Site Physician Relationship Specialty Start Date End Date Arianne Alarcon APRN, CNP [address] [place] [address] PCP - General Family Medicine 08/29/16 Jack Dukes MD [address] [place] [address] Consulting Physician Neurology 08/21/16 Lito Chatterjee MD [address] [place] [address] Consulting Physician General Surgery 04/27/19 Gustabo Falk MD [address] [place] [address] Consulting Physician Radiation Oncology 04/27/19 Amrit Goddard MD [address] [address] Consulting Physician General Surgery 06/08/19 Phan Grant MD [address] [place] [address] Consulting Physician Medical Oncology 02/16/20 documented as of this encounter
--- OUTSIDE RECORDS SUMMARY | 2024-08-23 18:10 | XMS_ITS | Encounter Summary ---
Author Organization [facility] Address [address] [place] [address] Phone Care Team Providers Care Entertainment Director Name Role Phone Jack Dukes MD Unavailable [phone] Arianne Alarcon APRN, YACHT BUILDER Primary Care Provider [phone] Lito Chatterjee MD Unavailable [phone] Gustabo Falk MD Unavailable [phone] Amrit Goddard MD Unavailable Phan Grant MD Unavailable [phone] Reason for Visit * Reason Comments Medication Refill Encounter Details Date Type Department Care Team (Late st Contact Info) Description 04/25/2022 Refill [facility] - Neurology [facility] #[address] [place] [address] Jack Dukes MD [address] [place] [address] Medication Refill Social History Tobacco Use Types Packs/Day Years Used Date Smoking Tobacco: Never Smokeless Tobacco: Never Alcohol Use Standard Drinks/Week Comments No 0 (1 standard drink = 0.6 oz pur e alcohol) Comments No Sex and Gender Information Value Date Recorded Sex Assigned at Not on file Legal Sex Female 2:52 AM MEDICAL LIAISON Gender Identity Not on file Sexual Orientation Not on file 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 Oncology Services [address] [place] [address] Phan Grant MD [address] [place], [place] [address] Discharge Disposition: Discharged to home or Selfcare documented as of this encounter Visit Diagnoses Diagnosis Seizures (HCC) Other convulsions documented in this encounter Care Teams Entertainment Director Relationship Specialty Start Date End Date Arianne Alarcon APRN, CNP [address] [place] [address] PCP - General Family Medicine 08/29/16 Jack Dukes MD [address] [place] [address] Consulting Physician Neurology 08/21/16 Lito Chatterjee MD [address] [place] [address] Consulting Physician General Surgery 04/27/19 Gustabo Falk MD [address] [place] [address] Consulting Physician Radiation Oncology 04/27/19 Amrit Goddard MD [address] [address] Consulting Physician General Surgery 06/08/19 Phan Grant MD [address] [place] [address] Consulting Physician Medical Oncology 02/16/20 documented as of this encounter
--- OUTSIDE RECORDS SUMMARY | 2024-08-23 18:10 | XMS_ITS | Encounter Summary ---
Author Organization [facility] Healthcare Address [address] [place] [address] Care Team Providers Care Automatic Riveting Machine Operator Name Role Phone Arianne Alarcon NP Primary Care Provider [phone] Derrick Walker MD Unavailable [phone] Encounter Details Date Type Department Care Team (Late st Contact Info) Description 04/04/2020 Telephone [facility] Surgeon [address] [place] [address] Brittany De Guzman MD [address] [place], [place] [id number] Social History Tobacco Use Types Packs/Day Years Used Date Smoking Tobacco: Never Smokeless Tobacco: Never Alcohol Use Standard Drinks/Week Comments No 0 (1 standard drink = 0.6 oz pur e alcohol) Comments No Sex and Gender Information Value Date Recorded Sex Assigned at Not on file Legal Sex Female 12:33 AM ARCHITECTURAL DESIGN PROFESSOR Gender Identity Female 06/06/2021 8:34 AM ARCHITECTURAL DESIGN PROFESSOR Sexual Orientation Straight 06/06/2021 8: 34 AM ARCHITECTURAL DESIGN PROFESSOR documented as of this encounter Plan of Treatment Not on file documented as of this encounter Visit Diagnoses Not on filedocumented in this encounter Additional Health Concerns Infection Onset Date Last Indicated Resolved Time MRSA Comment:01/31/2014: Wound Cx (R axilla) 12/01/2012 12/01/2012 02/21/2021 5:00 AM C DT COVID19 07/10/2020 07/10/2020 07/24/2020 3:07 AM ARCHITECTURAL DESIGN PROFESSOR COVID: Recovered Comment:Added based on recent COVID infection. 07/24/2020 07/31/2020 11/21/2020 3:05 AM C DT COVID: Suspected 08/04/2024 08/04/2024 08/04/2024 12:25 PM ARCHITECTURAL DESIGN PROFESSOR documented as of this encounter Care Teams Automatic Riveting Machine Operator Relationship Specialty Start Date End Date Arianne Alarcon NP [address] [place] [address] PCP - General 04/24/17 Derrick Walker MD [address] [place] [address] Consulting Physician Plastic Surgery 12/25/19 documented as of this encounter
--- OUTSIDE RECORDS SUMMARY | 2024-08-23 18:10 | XMS_ITS | Encounter Summary ---
Author Organization [facility] Address [address] [place] [address] Phone Care Team Providers Care Helper Metal Hanging Name Role Phone Jack Dukes MD Unavailable [phone] Arianne Alarcon APRN, WELFARE ADMINISTRATOR Primary Care Provider [phone] Lito Chatterjee MD Unavailable Gustabo Falk MD Unavailable [phone] Alfred Ochoa MD Unavailable Amrit Goddard MD Unavailable Phan Grant MD Unavailable [phone] Reason for Visit * Reason Comments Medication Refill Encounter Details Date Type Department Care Team (Late st Contact Info) Description 12/03/2019 Refill [facility] [place] #1 [facility] [place] [address] Jack Dukes MD [address] [place] [address] Medication Refill Social History Tobacco Use Types Packs/Day Years Used Date Smoking Tobacco: Never Smokeless Tobacco: Never Alcohol Use Standard Drinks/Week Comments No 0 (1 standard drink = 0.6 oz pur e alcohol) Comments No Sex and Gender Information Value Date Recorded Sex Assigned at Not on file Legal Sex Female 2:52 AM MOLD LAMINATOR Gender Identity Not on file Sexual Orientation Not on file 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 Not on file Not on file documented as of this encounter Plan of Treatment Upcoming Encounters Date Type Department Care Team (Late st Contact Info) Description 08/24/2024 2:45 PM MOLD LAMINATOR [facility] [address] [place] [address] Jack Dukes MD [address] [place] [address] 08/26/2024 1:20 PM MOLD LAMINATOR Office Visit [facility] Oncology Services [address] [place] [address] Phan Grant MD [address] [place] [address] Discharge Disposition: Discharged to home or Selfcare documented as of this encounter Visit Diagnoses Diagnosis 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) documented in this encounter Care Teams Helper Metal Hanging Relationship Specialty Start Date End Date Case AlarconLISA king CNP [address] [place], [place] [address] PCP - General Family Medicine 08/29/16 Jack Dukes MD [address] [place] [address] Consulting Physician Neurology 08/21/16 Lito Chatterjee MD [address] [place], [place] [address] Consulting Physician General Surgery 04/27/19 Gustabo Falk MD [address] [place] [address] Consulting Physician Radiation Oncology 04/27/19 Alfred Ochoa MD [address] [place] [address] Consulting Physician Medical Oncology 04/27/19 02/15/20 Amrit Goddard MD #[address] [address] Consulting Physician General Surgery 06/08/19 Phan Grant MD [address] [place] [address] Consulting Physician Medical Oncology 02/16/20 documented as of this encounter
--- OUTSIDE RECORDS SUMMARY | 2024-08-23 18:10 | XMS_ITS | Encounter Summary ---
Author Organization [facility] Address [address] [place] [address] Phone Care Team Providers Care Light Armored Vehicle Officer Name Role Phone Jack Dukes MD Unavailable [phone] Arianne Alarcon APRN, CENTRAL OFFICE SUPERVISOR Primary Care Provider [phone] Lito Chatterjee MD Unavailable [phone] Gustabo Falk MD Unavailable [phone] Amrit Goddard MD Unavailable Phan Grant MD Unavailable [phone] Reason for Visit * Reason Comments Medication Refill Encounter Details Date Type Department Care Team (Late st Contact Info) Description 05/24/2022 Refill [facility] - Neurology [facility] #[address] [place] [address] Jack Dukes MD [address] [place] [address] Medication Refill Social History Tobacco Use Types Packs/Day Years Used Date Smoking Tobacco: Never Smokeless Tobacco: Never Alcohol Use Standard Drinks/Week Comments No 0 (1 standard drink = 0.6 oz pur e alcohol) Comments No Sex and Gender Information Value Date Recorded Sex Assigned at Not on file Legal Sex Female 2:52 AM PROJECT MANAGEMENT DIRECTOR Gender Identity Not on file Sexual Orientation Not on file 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 file Not on file Not on file documented as of this encounter Plan of Treatment Upcoming Encounters Date Type Department Care Team (Late st Contact Info) Description 08/24/2024 2:45 PM PROJECT MANAGEMENT DIRECTOR Telemedicine [facility] #[address] [place] [address] Jack Dukes MD [address] [place] [address] 08/26/2024 1:20 PM PROJECT MANAGEMENT DIRECTOR Office Visit [facility] - [facility] Center Oncology Services [address] [place] [address] Phan Grant MD [address] [place], [place] [address] Discharge Disposition: Discharged to home or Selfcare documented as of this encounter Visit Diagnoses Diagnosis Seizures (HCC) Other convulsions documented in this encounter Care Teams Light Armored Vehicle Officer Relationship Specialty Start Date End Date Arianne Alarcon APRN, CNP [address] [place] [address] PCP - General Family Medicine 08/29/16 Jack Dukes MD [address] [place] [address] Consulting Physician Neurology 08/21/16 Lito Chatterjee MD [address] [place] [address] Consulting Physician General Surgery 04/27/19 Gustabo Falk MD [address] [place] [address] Consulting Physician Radiation Oncology 04/27/19 Amrit Goddard MD #[address] [address] Consulting Physician General Surgery 06/08/19 Phan Grant MD [address] [place] [address] Consulting Physician Medical Oncology 02/16/20 documented as of this encounter
--- OUTSIDE RECORDS SUMMARY | 2024-08-23 18:10 | XMS_ITS | Encounter Summary ---
Author Organization [facility] Address [address] [facility] [place] [address] Phone Care Team Providers Care Rubber Goods Repairer Name Role Phone Jack Dukes MD Unavailable [phone] Arianne Alarcon APRN, CNP Primary Care Provider [phone] Lito Chatterjee MD Unavailable Gustabo Falk MD Unavailable [phone] Amrit Goddard MD Unavailable Phan Grant MD Unavailable [phone] Reason for Visit * Reason Comments Medication Refill Encounter Details Date Type Department Care Team (Late st Contact Info) Description 05/22/2020 [facility] [address] [place] [address] Phan Grant MD [address] [place] [address] Medication Refill Social History Tobacco Use Types Packs/Day Years Used Date Smoking Tobacco: Never Smokeless Tobacco: Never Alcohol Use Standard Drinks/Week Comments No 0 (1 standard drink = 0.6 oz pur e alcohol) Comments No Sex and Gender Information Value Date Recorded Sex Assigned at Not on file Legal Sex Female 2:52 AM CODING ANALYST Gender Identity Not on file Sexual Orientation Not on file 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 No / Unsure 05/22/2020 3:41 PM CODING ANALYST documented as of this encounter Miscellaneous Notes * Telephone Encounter - Tanya Hylton APN, CNP - 05/26/2020 2:17 PM CODING ANALYST Refill Lorazepam 0.5 mg tabs, 1 tab BID as needed. # 60 tabs, 3 refills. NG ANALYST documented in this encounter Plan of Treatment Upcoming Encounters Date Type Department Care Team (Late st Contact Info) Description 08/24/2024 2:45 PM CODING ANALYST Telemedicine [facility] #2 [place] [address] Jack Dukes MD [address] [place] [address] 08/26/2024 1:20 PM CODING ANALYST Office Visit [facility] Oncology Services [address] [place] [address] Phan Grant MD [address] [place] [address] Discharge Disposition: Discharged to home or Selfcare documented as of this encounter Visit Diagnoses Not on filedocumented in this encounter Care Teams Rubber Goods Repairer Relationship Specialty Start Date End Date Arianne Alarcon APRN, CNP [address] [place] [address] PCP - General Family Medicine 08/29/16 Jack Dukes MD [address] [place] [address] Consulting Physician Neurology 08/21/16 Lito Chatterjee MD [address] [place] [address] Consulting Physician General Surgery 04/27/19 Gustabo Falk MD [address] [place] [address] Consulting Physician Radiation Oncology 04/27/19 Amrit Goddard MD #[address] [address] Consulting Physician General Surgery 06/08/19 Phan Grant MD [address] [place] [address] Consulting Physician Medical Oncology 02/16/20 documented as of this encounter
--- OUTSIDE RECORDS SUMMARY | 2024-08-23 18:10 | XMS_ITS | Encounter Summary ---
Author Organization [facility] Address [address] [place] [address] Phone Care Team Providers Care Accounts Receivable Processor Name Role Phone Jack Dukes MD Unavailable [phone] Arianne Alarcon APRN, WHEEL AND PINION INSPECTOR Primary Care Provider [phone] Lito Chatterjee MD Unavailable [phone] Gustabo Falk MD Unavailable [phone] Amrit Goddard MD Unavailable Phan Grant MD Unavailable [phone] Reason for Visit * Reason Comments Medication Refill Encounter Details Date Type Department Care Team (Late st Contact Info) Description 12/08/2021 Refill [facility] - Neurology [facility] #2 [place] [address] Jack Dukes MD [address] [place] [address] Medication Refill Social History Tobacco Use Types Packs/Day Years Used Date Smoking Tobacco: Never Smokeless Tobacco: Never Alcohol Use Standard Drinks/Week Comments No 0 (1 standard drink = 0.6 oz pur e alcohol) Comments No Sex and Gender Information Value Date Recorded Sex Assigned at Not on file Legal Sex Female 2:52 AM FUR FINISHER Gender Identity Not on file Sexual Orientation Not on file 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 No / Unsure 11/15/2021 9:38 AM CDT documented as of this encounter Plan of Treatment Upcoming Encounters Date Type Department Care Team (Late st Contact Info) Description 08/24/2024 2:45 PM FUR FINISHER Telemedicine [facility] Neurology [facility] #2 [place] [address] Jack Dukes MD [address] [place] [address] 08/26/2024 1:20 PM FUR FINISHER Office Visit [facility] Oncology Services [address] [place] [address] Phan Grant MD [address] [place], [place] [phone] Discharge Disposition: Discharged to home or Selfcare documented as of this encounter Visit Diagnoses Diagnosis Seizures (HCC) Other convulsions documented in this encounter Care Teams Accounts Receivable Processor Relationship Specialty Start Date End Date Arianne Alarcon APRN, ROMEL [address] [place] [address] PCP - General Family Medicine 08/29/16 Jack Dukes MD [address] [place] [address] Consulting Physician Neurology 08/21/16 Lito Chatterjee MD [address] [place] [address] Consulting Physician General Surgery 04/27/19 Gustabo Falk MD [address] [address] Consulting Physician Radiation Oncology 04/27/19 Amrit Goddard MD #[address] [address] Consulting Physician General Surgery 06/08/19 Phan Grant MD [address] [place] [address] Consulting Physician Medical Oncology 02/16/20 documented as of this encounter
--- OUTSIDE RECORDS SUMMARY | 2024-08-23 18:10 | XMS_ITS ---
Author Organization [facility] Address [address] [place] [address] Care Team Providers Care Medical Specialist Name Role Phone Arianne Alarcon NP Primary Care Provider [phone] Derrick Walker MD Unavailable [phone] Active Problems Problem Noted Date Diagnosed Date Alcohol withdrawal syndrome, uncomplicated 08/04 Hx of breast cancer 07/31/2020 Overview (07/31/2020): Added automatically from request for surgery [id number] History of breast cancer 02/10/2020 Overview (02/10/2020): Added automatically from request for surgery [id number] Anxiety 02/08/2020 Sensory neuropathy 02/08/2020 Nodule of soft tissue 01/18/2020 Breast neoplasm, Tx, right 11/25/2019 Peripheral neuropathy due to chemotherapy 2019 S/P vascular surgery 06/08/2019 Estrogen receptor negative status (ER-) 05/06/20 19 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 Past Treatment and Therapy Plans No past plan information found. Lifetime Dose Tracking * Chemical Lifetime Dose Automatic Entry Manual Entr y DLP 4,126 mGycm 4,126 mGycm 0 mGycm
--- OUTSIDE RECORDS SUMMARY | 2024-08-23 18:10 | XMS_ITS | Clinical Summary ---
Author Organization [facility] Address [address] [place] [address] Care Team Providers Care Plate Cleaner Name Role Phone Arianne Alarcon NP Primary Care Provider [phone] Derrick Walker MD Unavailable [phone] Allergies Active Allergy Reactions Criticality Noted Date Comments Penicillins Anaphylaxis High 03/29/2010 Sulfa (Sulfonamide Antibiotics) Anaphylaxis High Medications lamoTRIgine (LaMICtal) 100 mg tabletIndication s:Tonic-Clonic Epilepsy,Grand Mal Take 1 tablet (100 mg total) by mouth 2 (two) times a day Active escitalopram (LEXAPRO) 20 mg tabletIndication s:Anxiety with Depression Take 1 tablet (20 mg total) by mouth every morning Active zolpidem (AMBIEN) 5 mg tabletIndication s:Sleep-Onset Insomnia Take 2 tablets (10 mg total) by mouth nightly 08/30/19 20 Active lacosamide (VIMPAT) 100 mg tabletIndication s:epilepsy Take 1 tablet (100 mg total) by mouth 2 (two) times a day Active therapeutic multivitamin (THERA) tabletIndication s:Vitamin Deficiency Prevention Take 1 tablet by mouth every morning Active acetaminophen (TYLENOL) 500 mg tablet Take 1 tablet (500 mg total) by mouth every 6 (six) hours as needed for pain 30 tablet 08/03/19 21 Active diphenhydrAMINE (BENADRYL) 50 mg capsule Take 50 mg by mouth every 6 (six) hours as needed for itching or allergies Active oxyCODONE (ROXICODONE) 5 mg immediate release tabletIndication s:Pain Take 1 tablet (5 mg total) by mouth every 6 (six) hours as needed for pain 10 tablet 03/16/20 21 Active buPROPion SR (WELLBUTRIN SR) 150 mg 12 hr tablet Take 1 tablet (150 mg total) by mouth 2 (two) times a day Active chlordiazePOXIDE (LIBRIUM) 10 mg capsule Take 1 capsule (10 mg total) by mouth 3 (three) times a day as needed for anxiety or withdrawal symptoms for up to 5 days 15 capsule 08/06/19 25 Active gabapentin (NEURONTIN) 300 mg capsuleIndicatio ns:Pain Take 1 capsule (300 mg total) by mouth nightly for 7 days 7 capsule 04/07/20 20 025 Discontinu ed(Stop Taking at Discharge) metroNIDAZOLE (FLAGYL) 500 mg tabletIndication s:Urinary Tract/Genitourin charu Infection Take 1 tablet (500 mg total) by mouth 2 (two) times a day 08/02/19 25 025 Active Problems Problem Noted Date Diagnosed Date Alcohol withdrawal syndrome, uncomplicated 08/04 Hx of breast cancer 07/31/2020 Overview (07/31/2020): Added automatically from request for surgery [id number] History of breast cancer 02/10/2020 Overview (02/10/2020): Added automatically from request for surgery [id number] Anxiety 02/08/2020 Sensory neuropathy 02/08/2020 Nodule of [...] Depression 02/16/2009 Overview (10/09/2016): DEPRESSIVE DISORDER NEC Encounters Date Type Department Care Team Description 08/05/2024 Documentation [facility] Off [facility] [address] [place], [place] [phone] Min Arellano 08/04/2024 11:25 AM BOILER CLEANER - 08/06/2024 3:15 PM BOILER CLEANER Hospital Encounter [facility] [address] [place] [address] Daniel Torres MD Sinha, Chandni, MD Alcohol withdrawal syndrome without complication (HCC) (Primary Dx) Discharge Disposition: Discharge to home or self care 08/04/2024 Documentation [facility] [address] [place], [place] [phone] Ana Nair from Last 3 Months Immunizations Immunization Administration Dates Next Due Influenza, Quadrivalent, Spl it, Preservative Free, Intramuscular 04/07/2020,05/25/2019 Influenza, Trivalent, IM (MDV) 03/22/2014 Td, adsorbed 02/19/2011,02/16/2009 Surgical History Surgery Date Site/Laterality Comments LAPAROSCOPY 07/07/2002 - 07/06/2003 Ovarian cyst: laparoscopy-operative APPENDECTOMY 07/07/1993 - 07/06/1994 Appendectomy TUBAL LIGATION 07/07/2016 - 07/06/2017 Bilateral tubal ligation REVISION RECONSTRUCTED BREAST 08/03/2020 Bilateral GALE flap CYSTOSCOPY W/ URETERAL STENT PLACEMENT 07/07/2005 - 07/06/2006 Bilateral PORTACATH PLACEMENT Left MASTECTOMY 12/24/2019 Bilateral TISSUE RETAIL FINANCIAL ANALYST PLACEMENT 12/24/2019 Bilateral Removal Left Port a cath BREAST BIOPSY 07/07/2018 - 07/06/2019 Right BREAST RECONSTRUCTION 04/06/2020 Bilateral capsulectomy bilat breast, bilat free flap deep inferior epigastric perforators BREAST RECONSTRUCTION 07/13/2020 Bilateral bilat breast revision, bilat fat grafting, revision scar- abdominal BREAST BIOPSY 03/26/2019 Right Medical History Medical History Date Comments Hx Other Medical 2004 PCOS Cyst of ovary 2002 Ovarian cyst Cyst of ovary 2003 Ovarian cyst Hx Other Medical ; Comm ents: Kale; Outcome: Male Hx Other Medical ; Comm ents: Miscarriage @ 6mos; Outcome: Unknown sex Hx Other Medical Chronic UTI Hx Other Medical Appendicitis Hx Other Medical Headache, migra ine Tension headache Headache, tensi on Depression Breast cancer (HCC) RIGHT - inva sive ductual ca History of chemotherapy 10/2019 RIGHT [facility] Seizure disorder ([facility] Seizure disorder; last seizure 08/2019 Nephrolithiasis History of substance abuse ( [facility] Family History Medical History Relation Name Comments Alcohol abuse Brother 1 Alcoholism; Crohn's disease Brother 2 Crohn's dise ase; Alcohol abuse Father Alcoholism; Irritable bowel syndrome Father Irr itable bowel disease; Migraines Father Migraine; Other Father ; Cause of : Colon cancer Maternal Grandfather Cancer -colon; Cause of : Cancer -colon COPD Maternal Grandmother COPD; C ause of : COPD Diabetes Maternal Grandmother Diabete s mellitus; Cause of : Diabetes mellitus Diabetes Mother Diabetes mellit us; Hypertension Mother Hypertension; Migraines Other Family history of Migraine; Diabetes Paternal Grandfather Diabete s mellitus; Cause of : Diabetes mellitus Ovarian cancer Paternal Grandmother Cance r -ovarian; Cause of : Cancer -ovarian Other Sister Graves disease; Anesthesia problems Neg Hx Relation Name Status Comments Brother 1 Alive Brother 2 Alive Father (Age 50) Maternal Grandfather Alive Maternal Grandmother (Age 84) Mother (Age 67) Other Paternal Grandfather (Age 84) Paternal Grandmother (Age 85) Sister Social History Tobacco Use Types Packs/Day Years Used Date Smoking Tobacco: Never Smokeless Tobacco: Never Alcohol Use Standard Drinks/Week Comments No 0 (1 standard drink = 0.6 oz pur e alcohol) [facility] Utilities Answer Date Recorded In the past 12 months has [employer], oil, or water [employer] threatened to shut off services in your home? Already shut off 08/05/2024 Social Connection and Isolat ion Panel [NHANES] Answer Date Recorded In a typical week, how many times do you talk on the phone with family, friends, or neighbors? More than three times a week 08/05/2024 How often do you get togethe r with friends or relatives? Twice a week 08/05/2024 How often do you attend chur ch or temple services? More than 4 times per year 08/05/2024 Do you belong to any clubs o r organizations such as faith groups, unions, fraternal or athletic groups, or school groups? No 08/05/2024 How often do you attend meet ings of the clubs or organizations you belong to? Never 08/05/2024 Are you , , di vorced, , never , or living with a partner? Never 08/05/2024 AUDIT-C Answer Date Recorded Q1: How often do you have a drink containing alcohol? 4 or more times a week 08/04/2024 Q2: How many drinks containi ng alcohol do you have on a typical day when you are drinking? 10 or more Q3: How often do you have si x or more drinks on one occasion? Daily or almost daily 08/04/2024 Overall Financial Resource Strain (CARDIA) Answe r Date Recorded How hard is it for you to pa y for the very basics like food, housing, medical care, and heating? Hard 08/05/2024 Hunger Vital Sign Answer Date Recorded Within the past 12 months, y ou worried that your food would run out before you got the money to buy more. Never true 08/05/19 25 Within the past 12 months, t he food you bought just didn't last and you didn't have money to get more. Never true 08/05/2024 PRAPARE - Transportation Answer Date Re corded In the past 12 months, has l ack of transportation kept you from medical appointments or from getting medications? No 07/09 In the past 12 months, has l ack of transportation kept you from meetings, work, or from getting things needed for daily living? No 08/05/2024 Housing Stability Vital Sign Answer Edgar e Recorded In the last 12 months, was t here a time when you were not able to pay the mortgage or rent on time? Yes 08/05/2024 In the past 12 months, how m any times have you moved where you were living? 0 08/05/2024 At any time in the past [address] [facility], were you homeless or living in a longterm (including now)? No 08/05/2024 Personal Safety Answer Date Recorded Have you ever been in or are you currently in a harmful physical or emotional relationship or is someone making you feel afraid or unsafe? Denies 08/04/2024 Comments No Sex and Gender Information Value Date Recorded Sex Assigned at Not on file Legal Sex Female 12:33 AM BOILER CLEANER Gender Identity Female 06/06/2021 8:34 AM BOILER CLEANER Sexual Orientation Straight 06/06/2021 8: 34 AM BOILER CLEANER Obstetrics History Last Filed Vital Signs Vital Sign Reading Time Taken Comments Blood Pressure 100/80 08/06/2024 7:12 AM BOILER CLEANER Pulse 94 08/06/2024 7:12 AM BOILER CLEANER Temperature 36.4 C (97.6 F) 08/06/2024 7:12 AM BOILER CLEANER Respiratory Rate 18 08/06/2024 7:12 AM BOILER CLEANER Oxygen Saturation 94% 08/06/2024 7:12 AM BOILER CLEANER Inhaled Oxygen Concentration - - Weight 77.1 kg (170 lb) 08/04/2024 6:27 PM BOILER CLEANER Height 165.1 cm (5' 5 ) 08/04/2024 6:27 PM BOILER CLEANER Body Mass Index 28.29 08/04/2024 6:27 PM BOILER CLEANER Plan of Treatment Health Maintenance Due Date Last Done Comments Cervical Cancer Screening 1976 Colon Cancer Screening-Colonoscopy 1976 Depression Screening 1976 Hepatitis C Screening 1976 Hepatitis B Screening 1994 Regular Well Visit/Exam 18-64 1994 Breast Cancer Screening-Mammogram 05/11/2016 05/11/2015 Influenza Vaccine (#1) 2024 , 04/07/2020, 05/25/2019, Additional history exists DTaP/Tdap/Td Vaccine (2 - Td or Tdap) 03/07/2032 03/07/2022, 02/19/2011, 02/16/2009 Pneumococcal vaccine <65 Aged Out No longer eligible based on patient's age to complete this topic Medical Devices Implanted Type Area Baggage Security Checker Device Identifier Shelf Expiration Date Model / Serial / Lot Innov-X Systemsan [employer] 68-120 Natrelle 9cm Style 68mp Smooth Anterior Diaphragm Valve P3cm Latex Free - [id number] - [id number] Implanted:Qty: 1 on 03/16/2021 by Derrick Walker MD at [facility] Breast Left: Breast [employer]ergan [employer] 04/09/2024 68-120 / [id number] / Allergan [employer] [id number] Alloderm Select [id number] Allograft Regenerative Freeze Dried - [id number] - [id number] Implanted:Qty: 1 on 12/24/2019 by Derrick Walker MD at [facility] Left: Breast [employer] 11/03/2020 [id number] / [id number] / Aller[employer] [id number] Alloderm Select [id number] Allograft Regenerative Freeze Dried - [id number] - [id number] Implanted:Qty: 1 on 12/24/2019 by Derrick Walker MD at [facility] Right: Breast [employer] 10/04/2020 [id number] / [id number] / Synovis Gera-IT Allian [id number] Alpine Microvascular 2.5mm Ring Pin Protective Cover Jaw Assembly Latex Free - [id number] Implanted:Qty: 1 on 04/06/2020 by Derrick Walker MD at [facility] Right: Breast Synovis Micro Gydget Allian 10/13/2024 [id number] / / Synovis Spyder Lynk [id number] Alpine Microvascular 2.5mm Ring Pin Protective Cover Jaw Assembly Latex Free - [id number] Implanted:Qty: 1 on 04/06/2020 by Derrick Walker MD at [facility] Left: Breast [employer]is Micro Gydget Allian 10/23/2024 [id number] / / [id number] Allergan [employer] 68-120 Natrelle 9cm Style 68mp Smooth Anterior Diaphragm Valve P3cm Latex Free - [id number] - [id number] Implanted:Qty: 1 on 03/16/2021 by Derrick Walker MD at [facility] Left: Breast [employer] 08/30/2023 68-120 / [id number] / Explanted Type Area Baggage Security Checker Device Identifier Shelf Expiration Date Model / Serial / Lot Sientra Inc Allox2-[id number] Allox2 15x13.8cm Texture Integrate Port Breast P6.4-7.9cm Full - [id number] Implanted:Qty: 1 on 12/24/2019 by Derrick Walker MD at [facility] Explanted:Qty: 1 on 04/06/2020 by Derrick Walker MD at [facility] Breast Left: Breast S[employer] 11/03/2024 [id number] / / Sientra Inc Allox2-Fh15e Allox2 15x13.8cm Texture Integrate Port Breast P6.4-7.9cm Full - [id number] Implanted:Qty: 1 on 12/24/2019 by Derrick Walker MD at [facility] Explanted:Qty: 1 on 04/06/2020 by Derrick Walker MD at [facility] Right: Breast Sientra Inc 11/03/2024 [id number]-[id number] [id number] / / Procedures Procedure Name Priority Date/Time Associated Diagnosis Comments XR SHOULDER RIGHT 2 OR MORE VIEWS IP Routine 08/06/2024 9:39 AM BOILER CLEANER EGFR Routine 08/06/2024 5:36 AM BOILER CLEANER DIFFERENTIAL AUTO Routine 08/06/2024 5:3 6 AM BOILER CLEANER CBC WITH AUTO DIFFERENTIAL Routine 08/06/2024 5:36 AM BOILER CLEANER PHOSPHORUS Routine 08/06/2024 5:36 AM BOILER CLEANER MAGNESIUM Routine 08/06/2024 5:36 AM BOILER CLEANER BASIC METABOLIC PANEL Routine 08/06/2024 5:36 AM BOILER CLEANER PRO B-TYPE NATRIURETIC PEPTIDE Add-On 08/05/2024 5:22 AM BOILER CLEANER EGFR Routine 08/05/2024 5:22 AM BOILER CLEANER DIFFERENTIAL AUTO Routine 08/05/2024 5:2 2 AM BOILER CLEANER CBC WITH AUTO DIFFERENTIAL Routine 08/05/2024 5:22 AM BOILER CLEANER PHOSPHORUS Routine 08/05/2024 5:22 AM BOILER CLEANER MAGNESIUM Routine 08/05/2024 5:22 AM BOILER CLEANER BASIC METABOLIC PANEL Routine 08/05/2024 5:22 AM BOILER CLEANER URINALYSIS, MICROSCOPIC ONLY STAT 08/05/2024 3:22 AM BOILER CLEANER URINALYSIS AND REFLEX TO MICROSCOPIC AND CULTURE STAT 08/05/2024 3:22 AM BOILER CLEANER US VEIN DUPLEX LOWER EXTREMITY LEFT LIMITED IP Routine 08/04/2024 5:23 PM BOILER CLEANER ECG 12-LEAD Routine 08/04/2024 2:14 PM BOILER CLEANER PRO B-TYPE NATRIURETIC PEPTIDE STAT 08/04/2024 11:34 AM BOILER CLEANER EGFR STAT 08/04/2024 11:34 AM BOILER CLEANER DIFFERENTIAL AUTO STAT 08/04/2024 11: 34 AM BOILER CLEANER MAGNESIUM Routine 08/04/2024 11:34 AM BOILER CLEANER LIPASE STAT 08/04/2024 11:34 AM BOILER CLEANER ETHANOL STAT 08/04/2024 11:34 AM BOILER CLEANER COMPREHENSIVE METABOLIC PANEL STAT 08/04/2024 11:34 AM BOILER CLEANER CBC WITH AUTO DIFFERENTIAL STAT 08/04/2024 11:34 AM BOILER CLEANER INFLUENZA A/B, RSV, AND COVID-19 PCR Routine 08/04/2024 11:34 AM BOILER CLEANER DIAGNOSTIC MAMMOGRAM BILATERAL W MARY ANNE Routine 05/11/2015 11:49 AM BOILER CLEANER from Last 3 Months or Most Recently Relevant to Health Maintenance Results * XR Shoulder Right 2 or More Views (08/06/2024 9:39 AM BOILER CLEANER) Anatomical Region Laterality Modality Upper Extremities, Shoulder Right Comp uted Radiography 08/06/2024 12:1 9 PM BOILER CLEANER Narrative 08/06/2024 12:22 PM BOILER CLEANER EXAM DESCRIPTION: XR SHOULDER RIGHT 2 OR MORE VIEWS REASON FOR STUDY: pain Pain couple days TECHNIQUE: 4 radiographic view(s) of the right shoulder . COMPARISON: Chest radiograph 03/28/2022 FINDINGS: Mediastinal clips are noted. Alignment is normal. Minimal acromioclavicular osteoarthritis. Normal glenohumeral joint space. No acute fracture or aggressive bone lesion is seen. IMPRESSION: No acute osseous findings. Minimal right acromioclavicular osteoarthritis. THIS IS AN ELECTRONICALLY VERIFIED FINAL REPORT 08/06/2024 12:22 PM - Electronically signed by Anurag Almeida M.D. MZ: ALCIDES Report ID: [id number] Reading Location: [id number] Procedure Note Anurag Almeida MD - 08/06/2024 EXAM DESCRIPTION: XR SHOULDER RIGHT 2 OR MORE VIEWS REASON FOR STUDY: pain Pain couple days TECHNIQUE: 4 radiographic view(s) of the right shoulder . COMPARISON: Chest radiograph 03/28/2022 FINDINGS: Mediastinal clips are noted. Alignment is normal. Minimalacromioclavicular osteoarthritis. Normal glenohumeral joint space. No acute fracture or aggressive bone lesion is seen. IMPRESSION: No acute osseous findings. Minimal right acromioclavicularosteoarthritis. THIS IS AN ELECTRONICALLY VERIFIED FINAL REPORT 08/06/2024 12:22 PM - Electronically signed by Anurag Almeida M.D. MZ: MZ Report ID: [id number] Reading Location: [id number] us China Silva MD IMG XR PROCEDURES Final Result * eGFR (08/06/2024 5:36 AM BOILER CLEANER) eGFR 78 >=60 mL/min/1. 73 m2 Comment: Interpretive Data Reference Interval Normal >/= 90 mL/min/1.73m2 Mildly decreased* 60 - 89 mL/min/1.73m2 Mildly to moderately decreased 45 - 59 mL/min/1.73m2 Moderately to severely decreased 30 - 44 mL/min/1.73m2 Severely decreased 15 - 29 mL/min/1.73m2 Kidney Failure < 15 mL/min/1.73m2 *Relative to young adult level Estimated glomerular filtration rate is determined by the 2020 CKD-EPI equation recommended by the National Kidney Foundation (A Unifying Approach to GFR Estimation: Recommendations of the NKF-ASK Task Force on Reassessing the Inclusion of Race in Diagnosing Kidney Disease, JASN 2020). The CKD-EPI equation should not be used for patients with unstable renal function and has not been validated in children and those over 70. Current interpretive data was last reviewed 2021. Blood 08/06/2024 5:36 AM BOILER CLEANER 08/06/2024 6:19 AM BOILER CLEANER us China Silva MD LAB BLOOD ORDERABLES Final Resu lt [facility]) 1 [facility] Department [place] [address] * Differential, auto (08/06/2024 5:36 AM BOILER CLEANER) Neutrophil abs 2.4 1.5 - 6.5 K/cumm Imm gran abs 0.0 0.0 - 0.1 K/cumm [facility] ([place]) Lymphocyte abs 1.7 0.8 - 3.3 K/cumm [facility] ([place]) Monocyte abs 0.4 0.2 - 0.8 K/cumm [facility] ([place]) Eosinophil abs 0.0 0.0 - 0.5 K/cumm [facility] ([place]) Basophil abs 0.0 0.0 - 0.1 K/cumm [facility] ([place]) Neutrophil pct 53.4 % [facility] ([place]) Comment: Interpretive Data Percent cell count reference ranges are not reported, since discordance with absolute values may lead to misinterpretation of CBC data. Current Interpretive Data was last revised on 2017. Imm gran pct 0.2 % [facility] ([place]) Comment: Interpretive Data Percent cell count reference ranges are not reported, since discordance with absolute values may lead to misinterpretation of CBC data. Current Interpretive Data was last revised on 2017. Lymphocyte pct 37.2 % [facility] ([place]) Comment: Interpretive Data Percent cell count reference ranges are not reported, since discordance with absolute values may lead to misinterpretation of CBC data. Current Interpretive Data was last revised on 2017. Monocyte pct 8.6 % [facility] ([place]) Comment: Interpretive Data Percent cell count reference ranges are not reported, since discordance with absolute values may lead to misinterpretation of CBC data. Current Interpretive Data was last revised on 2017. Eosinophil pct 0.2 % [facility] ([place]) Comment: Interpretive Data Percent cell count reference ranges are not reported, since discordance with absolute values may lead to misinterpretation of CBC data. Current Interpretive Data was last revised on 2017. Basophil pct 0.4 % [facility] ([place]) Comment: Interpretive Data Percent cell count reference ranges are not reported, since discordance with absolute values may lead to misinterpretation of CBC data. Current Interpretive Data was last revised on 2017. Blood 08/06/2024 5:36 AM BOILER CLEANER 08/06/2024 6:19 AM BOILER CLEANER us China Silva MD LAB BLOOD ORDERABLES Final Resu lt [facility] ([place]) 1 [facility] [place] [address] * (ABNORMAL) CBC with auto differential (08/06/2024 5:36 AM BOILER CLEANER) WBC 4.5 3.8 - 9.9 K/cumm Hgb 12.2 11.9 - 15.5 g/dL [facility] ([place]) Hct 35.9 35.6 - 45.5 % [facility] ([place]) Plt 356 150 - 400 K/cumm [facility] ([place]) MPV 8.8(L) 9.1 - 12.3 fL [facility] ([place]) RBC 3.87(L) 3.90 - 5.20 M/cumm [facility] ([place]) MCV 92.8 81.3 - 96.4 fL [facility] ([place]) MCH 31.5 27.1 - 33.3 pg [facility] ([place]) MCHC 34.0 32.3 - 35.7 g/dL [facility] ([place]) RDW CV 12.4 11.1 - 14.9 % [facility] ([place]) RDW SD 42.0 35.7 - 48.1 fL [facility] ([place]) NRBC abs 0.00 0.00 - 0.01 K/cumm [facility] ([place]) Blood 08/06/2024 5:36 AM BOILER CLEANER 08/06/2024 6:19 AM BOILER CLEANER China Silva MD LAB BLOOD ORDERABLES Final Resu lt Performing Organization Address City/[facility] Co de Phone Number [facility] ([place]) [address] [facility] [place] [address] * Phosphorus (08/06/2024 5:36 AM BOILER CLEANER) Phosphorus, pl 4.4 2.3 - 4.5 mg/dL Blood 08/06/2024 5:36 AM BOILER CLEANER 08/06/2024 6:19 AM BOILER CLEANER China Silva MD LAB BLOOD ORDERABLES Final Resu lt [facility] ([place]) [address] [facility] [place] [address] * Magnesium (08/06/2024 5:36 AM BOILER CLEANER) Magnesium 2.0 1.4 - 2.5 mg/dL Blood 08/06/2024 5:3 6 AM BOILER CLEANER 08/06/2024 6:19 AM BOILER CLEANER China Silva MD LAB BLOOD ORDERABLES Final Resu lt [facility] ([place]) [address] [facility] Department [place] [address] * Basic metabolic panel (08/06/2024 5:36 AM BOILER CLEANER) Sodium 139 135 - 145 mmol/L Potassium, pl 3.8 3.3 - 4.9 mmol/L [facility] ([place]) Chloride 104 97 - 110 mmol/L [facility] ([place]) CO2 25 22 - 32 mmol/L [facility] ([place]) Anion gap 11 2 - 15 mmol/L [facility] ([place]) BUN 6 6 - 25 mg/dL [facility] ([place]) Creatinine 0.91 0.60 - 1.10 mg/dL [facility] ([place]) Glucose 98 70 - 199 mg/dL [facility] ([place]) Comment: Interpretive Data Fasting glucose >/= 126 mg/dl is diagnostic for diabetes. Fasting is defined as no caloric intake for at least 8 hours. Fasting glucose between 100 mg/dl to 125 mg/dl is diagnostic of prediabetes. In a patient with classic symptoms of hyperglycemia or hyperglycemic crisis, a random glucose >/= 200 mg/dl is diagnostic for diabetes. In the absence of unequivocal hyperglycemia, results should be confirmed by repeat testing. The classification and Diagnosis of Diabetes Diabetes Care 2021; 46: S19-S40. Current interpretive data was last revised 2022. Calcium 8.9 8.5 - 10.3 mg/dL [facility] ([place]) Blood 08/06/2024 5:36 AM BOILER CLEANER 08/06/2024 6:19 AM BOILER CLEANER China Silva MD LAB BLOOD ORDERABLES Final Resu lt [facility] ([place]) 1 [facility] [place] [address] * eGFR (08/05/2024 5:22 AM BOILER CLEANER) eGFR 70 >=60 mL/min/1. 73 m2 Comment: Interpretive Data Reference Interval Normal >/= 90 mL/min/1.73m2 Mildly decreased* 60 - 89 mL/min/1.73m2 Mildly to moderately decreased 45 - 59 mL/min/1.73m2 Moderately to severely decreased 30 - 44 mL/min/1.73m2 Severely decreased 15 - 29 mL/min/1.73m2 Kidney Failure < 15 mL/min/1.73m2 *Relative to young adult level Estimated glomerular filtration rate is determined by the 2020 CKD-EPI equation recommended by the National Kidney Foundation (A Unifying Approach to GFR Estimation: Recommendations of the NKF-ASK Task Force on Reassessing the Inclusion of Race in Diagnosing Kidney Disease, JASN 2020). The CKD-EPI equation should not be used for patients with unstable renal function and has not been validated in children and those over 70. Current interpretive data was last reviewed 2021. Blood 08/05/2024 5:22 AM BOILER CLEANER 08/05/2024 5:39 AM BOILER CLEANER us China Silva MD LAB BLOOD ORDERABLES Final Resu lt [facility] ([place]) 1 [facility] [place] [address] * Differential, auto (08/05/2024 5:22 AM BOILER CLEANER) Neutrophil abs 2.2 1.5 - 6.5 K/cumm Imm gran abs 0.0 0.0 - 0.1 K/cumm [facility] ([place]) Lymphocyte abs 1.5 0.8 - 3.3 K/cumm [facility] ([place]) Monocyte abs 0.4 0.2 - 0.8 K/cumm [facility] ([place]) Eosinophil abs 0.0 0.0 - 0.5 K/cumm [facility] ([place]) Basophil abs 0.0 0.0 - 0.1 K/cumm [facility] ([place]) Neutrophil pct 52.7 % [facility] ([place]) Comment: Interpretive Data Percent cell count reference ranges are not reported, since discordance with absolute values may lead to misinterpretation of CBC data. Current Interpretive Data was last revised on 2017. Imm gran pct 0.2 % [facility] ([place]) Comment: Interpretive Data Percent cell count reference ranges are not reported, since discordance with absolute values may lead to misinterpretation of CBC data. Current Interpretive Data was last revised on 2017. Lymphocyte pct 36.0 % [facility] ([place]) Comment: Interpretive Data Percent cell count reference ranges are not reported, since discordance with absolute values may lead to misinterpretation of CBC data. Current Interpretive Data was last revised on 2017. Monocyte pct 10.6 % [facility] ([place]) Comment: Interpretive Data Percent cell count reference ranges are not reported, since discordance with absolute values may lead to misinterpretation of CBC data. Current Interpretive Data was last revised on 2017. Eosinophil pct 0.0 % [facility] ([place]) Comment: Interpretive Data Percent cell count reference ranges are not reported, since discordance with absolute values may lead to misinterpretation of CBC data. Current Interpretive Data was last revised on 2017. Basophil pct 0.5 % [facility] ([place]) Comment: Interpretive Data Percent cell count reference ranges are not reported, since discordance with absolute values may lead to misinterpretation of CBC data. Current Interpretive Data was last revised on 2017. Blood 08/05/2024 5:22 AM BOILER CLEANER 08/05/2024 5:39 AM BOILER CLEANER us China Silva MD LAB BLOOD ORDERABLES Final Resu lt [facility] ([place]) 1 [facility] [place] [address] * Pro B-type natriuretic peptide (08/05/2024 5:22 AM BOILER CLEANER) NT-proBNP 241 <=300 pg/mL Comment: Interpretive Comments: A. Dyspnea in Acute Care Setting All Ages: < 300 pg/ml, acute heart failure unlikely. < 50 yrs: 300 - 450 pg/ml, further investigation warranted. > 450 pg/ml, acute heart failure likely. 50 - 74 yrs: 300 - 900 pg/ml, further investigation warranted. > 900 pg/ml, acute heart failure likely . > or = 75 yrs: 450 - 1800 pg/ml, further investigation warranted. > 1800 pg/ml, acute heart failure likely. B. Non-acute Setting < 75 yrs < 125 pg/ml, rules out heart failure. > or = 125 pg/ml, further investigation warranted. > or = 75 yrs < 450 pg/ml, rules out heart failure. > or = 450 pg/ml, further investigation warranted. - Knowledge of each individual patient's NT-proBNP range may be more useful than using similar cut-points for every patient. Please note that marked elevations in NT-proBNP levels may be observed in state other than Left Ventricular Congestive Failure, including: acute coronary syndromes, right heart strain/failure (including pulmonary embolism and cor pulmonale), critical illness, renal failure, as well as advanced age. - References: 1. Maikol JL et.al. Eur Heart J. 2006:27:330-337. 2. Sierra RW, Rosalinda CARVALHO. J. AM Stacey Cardiol: Cardiovasc Imag. 2009;2: 216- 225. Interpretive Data Last Revised Date: 2018. Blood 08/05/2024 5:22 AM BOILER CLEANER 08/05/2024 9:21 AM BOILER CLEANER us China Silva MD LAB BLOOD ORDERABLES Final Resu lt [facility] [place]) 1 [facility] [place] [address] * (ABNORMAL) CBC with auto differential (08/05/2024 5:22 AM BOILER CLEANER) WBC 4.2 3.8 - 9.9 K/cumm Hgb 12.2 11.9 - 15.5 g/dL [facility] ([place]) Hct 35.2(L) 35.6 - 45.5 % [facility] ([place]) Plt 330 150 - 400 K/cumm [facility] ([place]) MPV 8.7(L) 9.1 - 12.3 fL [facility] ([place]) RBC 3.76(L) 3.90 - 5.20 M/cumm [facility] ([place]) MCV 93.6 81.3 - 96.4 fL [facility] ([place]) MCH 32.4 27.1 - 33.3 pg [facility] ([place]) MCHC 34.7 32.3 - 35.7 g/dL [facility] ([place]) RDW CV 12.4 11.1 - 14.9 % [facility] ([place]) RDW SD 43.0 35.7 - 48.1 fL [facility] ([place]) NRBC abs 0.00 0.00 - 0.01 K/cumm [facility] ([place]) Blood 08/05/2024 5:22 AM BOILER CLEANER 08/05/2024 5:39 AM BOILER CLEANER China Silva MD LAB BLOOD ORDERABLES Final Resu lt [facility] ([place]) 1 [facility] [employer] [place] [address] * Phosphorus (08/05/2024 5:22 AM BOILER CLEANER) Phosphorus, pl 3.9 2.3 - 4.5 mg/dL Blood 08/05/2024 5:22 AM BOILER CLEANER 08/05/2024 5:39 AM BOILER CLEANER China Silva MD LAB BLOOD ORDERABLES Final Resu lt [facility] ([place]) 1 [facility] [employer] [place] [address] * Magnesium (08/05/2024 5:22 AM BOILER CLEANER) Magnesium 2.0 1.4 - 2.5 mg/dL Blood 08/05/2024 5:22 AM BOILER CLEANER 08/05/2024 5:39 AM BOILER CLEANER us China Silva MD LAB BLOOD ORDERABLES Final Resu lt [facility] ([place]) 1 [facility] Department [place] [address] * (ABNORMAL) Basic metabolic panel (08/05/2024 5:22 AM BOILER CLEANER) Sodium 140 135 - 145 mmol/L Potassium, pl 4.3 3.3 - 4.9 mmol/L [facility] ([place]) Chloride 108 97 - 110 mmol/L [facility] ([place]) CO2 25 22 - 32 mmol/L [facility] ([place]) Anion gap 8 2 - 15 mmol/L [facility] ([place]) BUN 5(L) 6 - 25 mg/dL [facility] ([place]) Creatinine 0.99 0.60 - 1.10 mg/dL [facility] ([place]) Glucose 96 70 - 199 mg/dL [facility] ([place]) Comment: Interpretive Data Fasting glucose >/= 126 mg/dl is diagnostic for diabetes. Fasting is defined as no caloric intake for at least 8 hours. Fasting glucose between 100 mg/dl to 125 mg/dl is diagnostic of prediabetes. In a patient with classic symptoms of hyperglycemia or hyperglycemic crisis, a random glucose >/= 200 mg/dl is diagnostic for diabetes. In the absence of unequivocal hyperglycemia, results should be confirmed by repeat testing. The classification and Diagnosis of Diabetes Diabetes Care 2021; 46: S19-S40. Current interpretive data was last revised 2022. Calcium 8.9 8.5 - 10.3 mg/dL [facility] ([place]) Blood 08/05/2024 5:22 AM BOILER CLEANER 08/05/2024 5:39 AM BOILER CLEANER China Silva MD LAB BLOOD ORDERABLES Final Resu lt [facility] ([place]) 1 [facility] Department [place] [address] * (ABNORMAL) Urinalysis reflex to microscopic and culture Urine (08/05/2024 3:22 AM BOILER CLEANER) Color, ur Yellow Yellow Clarity, ur Clear Clear [facility] ([place]) Specific gravity, ur 1.010 1.003 - 1.030 [facility] ([place]) pH, urine 6.0 [facility] ([place]) Comment: Interpretive Data U rine pH is affected by diet, medications, systemic acid-base disturbances, and renal tubular function. pH may affect urinary stone formation. For example, urine pH below 6.0 may help reduce the tendency for calcium phosphate stones and pH greater than 6.0 may reduce the tendency for uric acid stone formation. Source: [facility] Current Interpretive Data was last revised on 2017 Protein, ur ql Negative Negative [facility] ([place]) Glucose, ur ql Negative Negative [facility] ([place]) Ketones, ur Negative Negative [facility] ([place]) Bilirubin, ur Negative Negative [facility] ([place]) Blood, ur Negative Negative [facility] ([place]) Urobilinogen, ur <2.0 <2.0 mg/dL [facility] ([place]) Nitrite, ur Negative Negative [facility] ([place]) Leukocyte esterase, ur 3+(A) Negative [facility] ([place]) UA reflex comment Reflex to microscopic UA will be performed. [facility] ([place]) Urine 08/05/2024 3:22 AM BOILER CLEANER 08/05/2024 3:26 AM BOILER CLEANER us China Silva MD LAB MICROBIOLOGY - GENERAL ROBYN CHASE Final Result [facility] ([place]) 1 [facility] Department [place] [address] * (ABNORMAL) Urinalysis, microscopic only (08/05/2024 3:22 AM BOILER CLEANER) WBC, ur 6-10(A) 0 - 5 /HPF RBC, ur 3-5(A) 0 - 2 /HPF [facility] ([place]) Epithelial cells, squamous, ur 1-5 0 - 5 /HPF [facility] ([place]) Culture Reflex Comment Reflex conditions for urine culture (WBC >10) not met. [facility] ([place]) Urine 08/05/2024 3:22 AM BOILER CLEANER 08/05/2024 3:26 AM BOILER CLEANER us Daniel Torres MD LAB URINE ORDERABLES Final R esult [facility] ([place]) 1 [facility] Department [place] [address] * US VEIN DUPLEX LOWER EXTREMITY LEFT LIMITED, UNILATERAL (08/04/2024 5:23 PM BOILER CLEANER) Anatomical Region Laterality Modality Vascular Left Ultrasound 08/04/2024 7:57 PM BOILER CLEANER Narrative 08/04/2024 7:58 PM BOILER CLEANER EXAM DESCRIPTION: US VEIN DUPLEX LOWER EXTREMITY LEFT LIMITED, UNILATERAL REASON FOR STUDY: Rule out DVT TECHNIQUE: Duplex scan using the B-mode, spectral Doppler, and color-flow Doppler of the deep venous system of the left lower extremity was performed. Images stored on PACS. COMPARISON: None FINDINGS: Common femoral vein: Normal. Common femoral-saphenous vein confluence: Normal. Femoral vein: Normal. Popliteal vein: Normal. Infrapopliteal veins: Normal. Soft tissues: Normal. Other: None. IMPRESSION: No deep venous thrombosis of the visualized lower extremity. THIS IS AN ELECTRONICALLY VERIFIED FINAL REPORT 08/04/2024 7:58 PM - Electronically signed by Feliciano Abraham M.D. NS: NS Report ID: [id number] Reading Location: [id number] Procedure Note Feliciano Abraham MD - 08/04/2024 EXAM DESCRIPTION: US VEIN DUPLEX LOWER EXTREMITY LEFT LIMITED,UNILATERAL REASON FOR STUDY: Rule out DVT TECHNIQUE: Duplex scan using the B-mode, spectral Doppler, and color-flow Doppler of the deep venous system of the left lower extremity wasperformed. Images stored on PACS. COMPARISON: None FINDINGS: Common femoral vein: Normal. Common femoral-saphenous vein confluence: Normal. Femoral vein: Normal. Popliteal vein: Normal. Infrapopliteal veins: Normal. Soft tissues: Normal. Other: None. IMPRESSION: No deep venous thrombosis of the visualized lower extremity. THIS IS AN ELECTRONICALLY VERIFIED FINAL REPORT 08/04/2024 7:58 PM - Electronically signed by eFliciano Abraham M.D. NS: NS Report ID: [id number] Reading Location: [id number] China Silva MD IMG US PROCEDURES Final Result * ECG 12 lead (08/04/2024 2:14 PM BOILER CLEANER) 08/04/2024 2:14 PM BOILER CLEANER Narrative [facility] - 08/04/2024 4:33 PM BOILER CLEANER Vent Rate: 92 bpm RR Interval: 646 msec TX Interval: 219 msec QRS Duration: 73 msec QT Interval: 358 msec QTC Interval: 408 msec P-R-T [place]: 37 - 18 - 35 degrees IMPRESSION: SINUS RHYTHM WITH FIRST DEGREE AV BLOCK LOW QRS VOLTAGE IN PRECORDIAL LEADS [QRS DEFLECTION < 1.0 mV IN CHEST LEADS] ABNORMAL ECG Electronically Signed By: Damion Rodriguez MD Daniel Torres MD ECG ORDERABLES Final Result [facility] * Influenza A/B, RSV, and COVID-19 PCR Nasopharyngeal (08/04/2024 11:34 AM BOILER CLEANER) COVID-19 RNA Negative Negative Influenza A RNA Negative Negative [facility] ([place]) Influenza B RNA Negative Negative [facility] ([place]) RSV RNA Negative Negative [facility] ([place]) Comment: Interpretive data: Testing performed by [facility]. This test is performed using the [employer] Super Xpert Xpress CoV-2/Flu/RSV plus assay. This is a multiplex, real- time reverse transcriptase PCR assay intended for the qualitative detection of nucleic acid from SARS-CoV-2, influenza A, influenza B, and respiratory syncytial virus. This assay has been cleared by the [place] Food and Drug administration. The performance characteristics have been verified by the [facility]. Results must be considered in the clinical context, and a negative result does not rule out infection. Interpretive Data last revised 2023 Nasopharyngeal 08/04/2024 11 :34 AM BOILER CLEANER 08/04/2024 11:39 AM BOILER CLEANER Narrative [facility] ([place]) - 08/04/2024 12:23 PM BOILER CLEANER Is the Patient experiencing symptoms consistent with COVID?->Unknown Flor Sanchez MD LAB MICROBIOLOGY - GENERA L ORDERABLES Final Result [facility] ([place]) 1 [facility] Department [place] [address] * eGFR (08/04/2024 11:34 AM BOILER CLEANER) eGFR 71 >=60 mL/min/1. 73 m2 Comment: Interpretive Data Reference Interval Normal >/= 90 mL/min/1.73m2 Mildly decreased* 60 - 89 mL/min/1.73m2 Mildly to moderately decreased 45 - 59 mL/min/1.73m2 Moderately to severely decreased 30 - 44 mL/min/1.73m2 Severely decreased 15 - 29 mL/min/1.73m2 Kidney Failure < 15 mL/min/1.73m2 *Relative to young adult level Estimated glomerular filtration rate is determined by the 2020 CKD-EPI equation recommended by the National Kidney Foundation (A Unifying Approach to GFR Estimation: Recommendations of the NKF-ASK Task Force on Reassessing the Inclusion of Race in Diagnosing Kidney Disease, JASN 202). The CKD-EPI equation should not be used for patients with unstable renal function and has not been validated in children and those over 70. Current interpretive data was last reviewed 2021. Blood 08/04/2024 11:3 4 AM BOILER CLEANER 08/04/2024 11:39 AM BOILER CLEANER us Daniel Torres MD LAB BLOOD ORDERABLES Final R esult [facility] ([place]) 1 [facility] Department [place] [address] * Differential, auto (08/04/2024 11:34 AM BOILER CLEANER) Neutrophil abs 3.4 1.5 - 6.5 K/cumm Imm gran abs 0.0 0.0 - 0.1 K/cumm [facility] ([place]) Lymphocyte abs 1.6 0.8 - 3.3 K/cumm [facility] ([place]) Monocyte abs 0.5 0.2 - 0.8 K/cumm [facility] ([place]) Eosinophil abs 0.0 0.0 - 0.5 K/cumm [facility] ([place]) Basophil abs 0.0 0.0 - 0.1 K/cumm [facility] ([place]) Neutrophil pct 62.0 % [facility] ([place]) Comment: Interpretive Data Percent cell count reference ranges are not reported, since discordance with absolute values may lead to misinterpretation of CBC data. Current Interpretive Data was last revised on 2017. Imm gran pct 0.4 % [facility] ([place]) Comment: Interpretive Data Percent cell count reference ranges are not reported, since discordance with absolute values may lead to misinterpretation of CBC data. Current Interpretive Data was last revised on 2017. Lymphocyte pct 28.0 % [facility] ([place]) Comment: Interpretive Data Percent cell count reference ranges are not reported, since discordance with absolute values may lead to misinterpretation of CBC data. Current Interpretive Data was last revised on 2017. Monocyte pct 9.0 % [facility] ([place]) Comment: Interpretive Data Percent cell count reference ranges are not reported, since discordance with absolute values may lead to misinterpretation of CBC data. Current Interpretive Data was last revised on 2017. Eosinophil pct 0.2 % [facility] ([place]) Comment: Interpretive Data Percent cell count reference ranges are not reported, since discordance with absolute values may lead to misinterpretation of CBC data. Current Interpretive Data was last revised on 2017. Basophil pct 0.4 % [facility] ([place]) Comment: Interpretive Data Percent cell count reference ranges are not reported, since discordance with absolute values may lead to misinterpretation of CBC data. Current Interpretive Data was last revised on 2017. Blood 08/04/2024 11:3 4 AM BOILER CLEANER 08/04/2024 11:40 AM BOILER CLEANER us Daniel Torres MD LAB BLOOD ORDERABLES Final R esult [facility] ([place]) 1 [facility] Department [place] [address] * Pro B-type natriuretic peptide (08/04/2024 11:34 AM BOILER CLEANER) NT-proBNP 278 <=300 pg/mL Comment: Interpretive Comments: A. Dyspnea in Acute Care Setting All Ages: < 300 pg/ml, acute heart failure unlikely. < 50 yrs: 300 - 450 pg/ml, further investigation warranted. > 450 pg/ml, acute heart failure likely. 50 - 74 yrs: 300 - 900 pg/ml, further investigation warranted. > 900 pg/ml, acute heart failure likely . > or = 75 yrs: 450 - 1800 pg/ml, further investigation warranted. > 1800 pg/ml, acute heart failure likely. B. Non-acute Setting < 75 yrs < 125 pg/ml, rules out heart failure. > or = 125 pg/ml, further investigation warranted. > or = 75 yrs < 450 pg/ml, rules out heart failure. > or = 450 pg/ml, further investigation warranted. - Knowledge of each individual patient's NT-proBNP range may be more useful than using similar cut-points for every patient. Please note that marked elevations in NT-proBNP levels may be observed in state other than Left Ventricular Congestive Failure, including: acute coronary syndromes, right heart strain/failure (including pulmonary embolism and cor pulmonale), critical illness, renal failure, as well as advanced age. - References: 1. Maikol OQUENDO et.al. Eur Heart J. 2006:27:330-337. 2. Sierra RW, Rosalinda AM. J. AM Stacey Cardiol: Cardiovasc Imag. 2009;2: 216- 225. Interpretive Data Last Revised Date: 2018. Blood 08/04/2024 11:3 4 AM BOILER CLEANER 08/04/2024 12:48 PM BOILER CLEANER Daniel Torres MD LAB BLOOD ORDERABLES Final R esult [facility] ([place]) 1 [facility] [place] [address] * (ABNORMAL) CBC with auto differential (08/04/2024 11:34 AM BOILER CLEANER) WBC 5.5 3.8 - 9.9 K/cumm Hgb 12.5 11.9 - 15.5 g/dL [facility] ([place]) Hct 36.9 35.6 - 45.5 % [facility] ([place]) Plt 355 150 - 400 K/cumm [facility] ([place]) MPV 8.6(L) 9.1 - 12.3 fL [facility] ([place]) RBC 3.97 3.90 - 5.20 M/cumm [facility] ([place]) MCV 92.9 81.3 - 96.4 fL [facility] ([place]) MCH 31.5 27.1 - 33.3 pg [facility] ([place]) MCHC 33.9 32.3 - 35.7 g/dL [facility] ([place]) RDW CV 12.4 11.1 - 14.9 % [facility] ([place]) RDW SD 42.6 35.7 - 48.1 fL [facility] ([place]) NRBC abs 0.00 0.00 - 0.01 K/cumm [facility] ([place]) Blood 08/04/2024 11:3 4 AM BOILER CLEANER 08/04/2024 11:40 AM BOILER CLEANER Daniel Torres MD LAB BLOOD ORDERABLES Final R esult [facility] ([place]) 1 [facility] [place] [address] * Magnesium (08/04/2024 11:34 AM BOILER CLEANER) Magnesium 1.9 1.4 - 2.5 mg/dL Blood 08/04/2024 11:3 4 AM BOILER CLEANER 08/04/2024 11:39 AM BOILER CLEANER Daniel Torres MD LAB BLOOD ORDERABLES Final R esult Performing Organization Address City/[facility] Co de Phone Number [facility] ([place]) 1 [facility] [place] [address] * Lipase (08/04/2024 11:34 AM BOILER CLEANER) Pathologist [facility] Lipase 15 10 - 99 Units/L Blood 08/04/2024 11:3 4 AM BOILER CLEANER 08/04/2024 11:39 AM BOILER CLEANER Daniel Torres MD LAB BLOOD ORDERABLES Final R esult Performing Organization Address [facility] de Phone Number [facility] ([place]) 1 [facility] [place] [address] * (ABNORMAL) Ethanol (08/04/2024 11:34 AM BOILER CLEANER) Pathologist [facility] Ethanol 37(H) <=10 mg/dL Comment: Interpretive Data Legal limit of intoxication > or = 80 mg/dL Levels > or = 400 mg/dL are potentially TOXIC. Current interpretive data was last revised on 2018. Blood 08/04/2024 11:3 4 AM BOILER CLEANER 08/04/2024 11:39 AM BOILER CLEANER Daniel Torres MD LAB BLOOD ORDERABLES Final R esult Performing Organization Address [facility] Co de Phone Number [facility] ([place]) 1 [facility] [place] [address] * Comprehensive metabolic panel (08/04/2024 11:34 AM BOILER CLEANER) Pathologist [facility] Sodium 140 135 - 145 mmol/L Potassium, pl 3.5 3.3 - 4.9 mmol/L [facility] ([place]) Chloride 103 97 - 110 mmol/L [facility] ([place]) CO2 25 22 - 32 mmol/L [facility] ([place]) Anion gap 12 2 - 15 mmol/L [facility] ([place]) BUN 6 6 - 25 mg/dL [facility] ([place]) Creatinine 0.98 0.60 - 1.10 mg/dL [facility] ([place]) Glucose 121 70 - 199 mg/dL [facility] ([place]) Comment: Interpretive Data Fasting glucose >/= 126 mg/dl is diagnostic for diabetes. Fasting is defined as no caloric intake for at least 8 hours. Fasting glucose between 100 mg/dl to 125 mg/dl is diagnostic of prediabetes. In a patient with classic symptoms of hyperglycemia or hyperglycemic crisis, a random glucose >/= 200 mg/dl is diagnostic for diabetes. In the absence of unequivocal hyperglycemia, results should be confirmed by repeat testing. The classification and Diagnosis of Diabetes Diabetes Care 2021; 46: S19-S40. Current interpretive data was last revised 2022. Calcium 9.3 8.5 - 10.3 mg/dL [facility] ([place]) Bilirubin, total 0.3 0.1 - 1.2 mg/dL [facility] ([place]) Protein, pl 7.1 6.5 - 8.5 g/dL [facility] ([place]) Albumin 3.8 3.5 - 5.0 g/dL [facility] ([place]) Alk phos 102 40 - 130 Units/L [facility] ([place]) ALT 20 7 - 45 Units/L [facility] ([place]) AST 25 10 - 45 Units/L [facility] ([place]) Blood 08/04/2024 11:3 4 AM BOILER CLEANER 08/04/2024 11:39 AM BOILER CLEANER us Daniel Torres MD LAB BLOOD ORDERABLES Final R esult [facility] 1 [facility] [place] [address] * DIAGNOSTIC MAMMOGRAM BILATERAL W MARY ANNE (05/11/2015 11:49 AM BOILER CLEANER) Anatomical Region Laterality Modality Breast Bilateral Mammography 05/11/2015 11:4 9 AM BOILER CLEANER Narrative 05/11/2015 11:11 PM BOILER CLEANER SCREENING MAMM W MARY ANNE BI Acc#: [id number] Screening Mamm Bi Acc#: [id number] DATE OF EXAM: May 11 2015 Performed by: CLINICAL HISTORY: Baseline screening. RESULT: Craniocaudal and mediolateral oblique views with tomosynthesis demonstrate heterogeneously dense parenchyma in the breasts bilaterally. No dominant mass, skin thickening, nipple retraction or suspicious cluster of microcalcifications is seen. Digital technology was employed plus computer-aided detection software (R2) was utilized in interpretation of these images. This facility utilizes a reminder system to notify patients of yearly mammograms. IMPRESSION: 1. NO FINDING SUSPICIOUS FOR MALIGNANCY. 2. RECOMMEND RE-SCREENING AT AGE 40. BI-RADS CATEGORY 1 - NEGATIVE Interpreting Physician: DR ANTWAN LATHAM M.D. Read on: May 11 2015 11:49A Transcribed by: hung On: May 11 2015 2:42P Approved Electronically by: YEISON Little, DR MONCADA on: May 11 2015 11:11P Attending: ROD DUQUE Requesting: ROD DUQUE Requesting Fax: -- Attending Fax: -- Attending ID: [id number] Requesting ID: [id number] Report To 1 ID: [id number] Report To 1 Name: ROD DUQUE Report To 1 FAX: -- NextGen Order #: Procedure Note Provider, MD Manuelito - 10/31/2016 SCREENING MAMM W MARY ANNE BI Acc#: [id number] Screening Mamm Bi Acc#: [id number] DATE OF EXAM: May 11 2015 Performed by: CLINICAL HISTORY: Baseline screening. RESULT: Craniocaudal and mediolateral oblique views with tomosynthesisdemonstrate heterogeneously dense parenchyma in the breasts bilaterally.No dominant mass, skin thickening, nipple retraction or suspicious clusterof microcalcifications is seen. Digital technology was employed pluscomputer-aided detection software (R2) was utilized in interpretation ofthese images. This facility utilizes a reminder system to notify patientsof yearly mammograms. IMPRESSION: 1. NO FINDING SUSPICIOUS FOR MALIGNANCY. 2. RECOMMEND RE-SCREENING AT AGE 40. BI-RADS CATEGORY 1 - NEGATIVE Interpreting Physician: DR ANTWAN LATHAM M.D. Read on: May 11 201511:49A Transcribed by: hung On: May 11 2015 2:42P Approved Electronically by: YEISON Little, DR MONCADA on: May 11 201511:11P Attending: ROD DUQUE Requesting: ROD DUQUE Requesting Fax: -- Attending Fax: -- Attending ID: [id number] Requesting ID: [id number] Report To 1 ID: [id number] Report To 1 Name: ROD DUQUE Report To 1 FAX: -- NextGen Order #: Historical Provider MD [facility] MAMMO PROCEDURES Margarita l Result from Last 3 Months or Most Recently Relevant to Health Maintenance Insurance [facility] Advance Directives For more information, please contact: [phone] * Full Code (Latest Code Status on File) Date Activated Date Inactivated Comments 08/04/2024 6:28 PM 08/06/2024 8:23 PM * Full Code Date Activated Date Inactivated Comments 08/04/2024 6:28 PM 08/04/2024 6:28 PM * Full Code Date Activated Date Inactivated Comments 04/06/2020 8:35 PM 04/10/2020 6:28 PM * Full Code Date Activated Date Inactivated Comments 12/24/2019 7:19 PM 12/25/2019 7:34 PM Care Teams Plate Cleaner Relationship Specialty Start Date End Date Arianne Alarcon NP [address] [place] [address] PCP - General 04/24/17 Derrick Walker MD [address] [place] [address] Consulting Physician Plastic Surgery 12/25/19
--- OUTSIDE RECORDS SUMMARY | 2024-08-23 18:10 | XMS_ITS | Encounter Summary ---
Author Organization [facility] Address [address] [place] [address] Phone Care Team Providers Care Commercial Collections Driver Name Role Phone Jack Dukes MD Unavailable [phone] Arianne Alarcon APRN, SECTION PLOTTER OPERATOR Primary Care Provider [phone] Lito Chatterjee MD Unavailable [phone] Gustabo Falk MD Unavailable [phone] Amrit Goddard MD Unavailable Phan Grant MD Unavailable [phone] Reason for Visit * Reason Comments Medication Refill Encounter Details Date Type Department Care Team (Late st Contact Info) Description 02/22/2020 Refill [facility] - [facility]rology - [place] #1 [place] [address] Jack Dukes MD [address]2 [place] [address] Medication Refill Social History Tobacco Use Types Packs/Day Years Used Date Smoking Tobacco: Never Smokeless Tobacco: Never Alcohol Use Standard Drinks/Week Comments No 0 (1 standard drink = 0.6 oz pur e alcohol) Comments No Sex and Gender Information Value Date Recorded Sex Assigned at Not on file Legal Sex Female 2:52 AM STRAPPER AND BUFFER Gender Identity Not on file Sexual Orientation Not on file 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 No / Unsure 02/21/2020 11:54 AM CDT documented as of this encounter Plan of Treatment Upcoming Encounters Date Type Department Care Team (Late st Contact Info) Description 08/24/2024 2:45 PM STRAPPER AND BUFFER Telemedicine [facility] #2 [place] [address] Jack Dukes MD [address]2 [place] [address] 08/26/2024 1:20 PM STRAPPER AND BUFFER Office Visit [facility] Oncology Services [address] [place] [address] Phan Grant MD [address] [place] [address] Discharge Disposition: Discharged to home or Selfcare documented as of this encounter Visit Diagnoses Diagnosis 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) documented in this encounter Care Teams Commercial Collections Driver Relationship Specialty Start Date End Date Arianne Alarcon APRN, CNP [address] [place] [address] PCP - General Family Medicine 08/29/16 Jack Dukes MD [address] [place] [address] Consulting Physician Neurology 08/21/16 Lito Chatterjee MD [address] [place] [address] Consulting Physician General Surgery 04/27/19 Gustabo Falk MD [address] [address] Consulting Physician Radiation Oncology 04/27/19 Amrit Goddard MD #[address] [address] Consulting Physician General Surgery 06/08/19 Phan Grant MD [address] [place] [address] Consulting Physician Medical Oncology 02/16/20 documented as of this encounter
--- OUTSIDE RECORDS SUMMARY | 2024-08-23 18:10 | XMS_ITS | Encounter Summary ---
Author Organization [facility] Address [address] [place] [address] Phone Care Team Providers Care Boat Pilot Name Role Phone Jack Dukes MD Unavailable [phone] Arianne Alarcon APRN, CLINICAL REVIEWER Primary Care Provider [phone] Lito Chatterjee MD Unavailable [phone] Gustabo Falk MD Unavailable [phone] Amrit Goddard MD Unavailable Phan Grant MD Unavailable [phone] Reason for Visit * Reason Comments Medication Refill Encounter Details Date Type Department Care Team (Late st Contact Info) Description 05/29/2020 Refill [facility] - [facility]rology - [place] #1 [place] [address] Jack Dukes MD [address]2 [place] [address] Medication Refill Social History Tobacco Use Types Packs/Day Years Used Date Smoking Tobacco: Never Smokeless Tobacco: Never Alcohol Use Standard Drinks/Week Comments No 0 (1 standard drink = 0.6 oz pur e alcohol) Comments No Sex and Gender Information Value Date Recorded Sex Assigned at Not on file Legal Sex Female 2:52 AM FRONT OFFICE SUPERVISOR Gender Identity Not on file Sexual Orientation Not on file 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 No / Unsure 05/22/2020 3:41 PM FRONT OFFICE SUPERVISOR documented as of this encounter Plan of Treatment Upcoming Encounters Date Type Department Care Team (Late st Contact Info) Description 08/24/2024 2:45 PM FRONT OFFICE SUPERVISOR Telemedicine [facility] #2 [place] [address] Jack Dukes MD #2 [place] [address] 08/26/2024 1:20 PM FRONT OFFICE SUPERVISOR Office Visit [facility] Oncology Services [address] [place] [address] Phan Grant MD [address] [place], [place] [id number] Discharge Disposition: Discharged to home or Selfcare documented as of this encounter Visit Diagnoses Diagnosis 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) documented in this encounter Care Teams Boat Pilot Relationship Specialty Start Date End Date Arianne Alarcon APRN, CNP [address] [place] [address] PCP - General Family Medicine 08/29/16 Jack Dukes MD [address] [place] [address] Consulting Physician Neurology 08/21/16 Lito Chatterjee MD [address] [address] Consulting Physician General Surgery 04/27/19 Gustabo Falk MD [address] [address] Consulting Physician Radiation Oncology 04/27/19 Amrit Goddard MD #[address] [address] Consulting Physician General Surgery 06/08/19 Phan Grant MD [address] [place] [address] Consulting Physician Medical Oncology 02/16/20 documented as of this encounter
--- OUTSIDE RECORDS SUMMARY | 2024-08-23 18:10 | XMS_ITS | Encounter Summary ---
Author Organization [facility] Address [address] [place] [address] Phone Care Team Providers Care Idea Worker Name Role Phone Jack Dukes MD Unavailable [phone] Arianne Alarcon APRN, RN CALL CENTER Primary Care Provider [phone] Lito Chatterjee MD Unavailable Gustabo Falk MD Unavailable [phone] Alfred Ochoa MD Unavailable Amrit Goddard MD Unavailable Phan Grant MD Unavailable [phone] Reason for Visit * Reason Comments Medication Refill Encounter Details Date Type Department Care Team (Late st Contact Info) Description 01/21/2020 Refill [facility] - [place] #1 [facility] [place] [address] Jack Dukes MD [address] [place] [address] Medication Refill Social History Tobacco Use Types Packs/Day Years Used Date Smoking Tobacco: Never Smokeless Tobacco: Never Alcohol Use Standard Drinks/Week Comments No 0 (1 standard drink = 0.6 oz pur e alcohol) Comments No Sex and Gender Information Value Date Recorded Sex Assigned at Not on file Legal Sex Female 2:52 AM SLAB INSPECTOR Gender Identity Not on file Sexual Orientation Not on file 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 No / Unsure 01/18/2020 11:55 AM CDT documented as of this encounter Plan of Treatment Upcoming Encounters Date Type Department Care Team (Late st Contact Info) Description 08/24/2024 2:45 PM SLAB INSPECTOR Telemedicine [facility] Neurology [facility] #2 [place] [address] Jack Dukes MD #[address] [place] [address] 08/26/2024 1:20 PM SLAB INSPECTOR Office Visit [facility] Oncology Services [address] [place] [address] Phan Grant MD [address] [place], [place] [address] Discharge Disposition: Discharged to home or Selfcare documented as of this encounter Visit Diagnoses Diagnosis 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) documented in this encounter Care Teams Idea Worker Relationship Specialty Start Date End Date Arianne Alarcon APRN, CNP [address] [place], [place] [id number] PCP - General Family Medicine 08/29/16 Jack Dukes MD [address] [place] [address] Consulting Physician Neurology 08/21/16 Lito Chatterjee MD [address] [place] [address] Consulting Physician General Surgery 04/27/19 Gustabo Falk MD [address] [place] [address] Consulting Physician Radiation Oncology 04/27/19 Alfred Ochoa MD [address] [place] [address] Consulting Physician Medical Oncology 04/27/19 02/15/20 Amrit Goddard MD #[address] [address] Consulting Physician General Surgery 06/08/19 Phan Grant MD [address] [place] [address] Consulting Physician Medical Oncology 02/16/20 documented as of this encounter
--- OUTSIDE RECORDS SUMMARY | 2024-08-23 18:10 | XMS_ITS | Encounter Summary ---
Author Organization [facility] Address [address] [facility] [place] [address] Phone Care Team Providers Care [place] Marshal Name Role Phone Jack Dukes MD Unavailable [phone] Arianne Alarcon APRN, TELEVISION MAINTENANCE MAN Primary Care Provider Lito Chatterjee MD Unavailable [phone] Gustabo Falk MD Unavailable [phone] Alfred Ochoa MD Unavailable Amrit Goddard MD Unavailable Phan Grant MD Unavailable [phone] Reason for Visit * Reason Comments Medication Refill Encounter Details Date Type Department Care Team (Late st Contact Info) Description 12/13/2019 [facility] [address] [place] [address] Alfred Ochoa MD [address] [place] [address] Medication Refill Social History Tobacco Use Types Packs/Day Years Used Date Smoking Tobacco: Never Smokeless Tobacco: Never Alcohol Use Standard Drinks/Week Comments No 0 (1 standard drink = 0.6 oz pur e alcohol) Comments No Sex and Gender Information Value Date Recorded Sex Assigned at Not on file Legal Sex Female 2:52 AM RUBBER TUBING SPLICER Gender Identity Not on file Sexual Orientation Not on file 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 Date 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 on file Not on file Not on file documented as of this encounter Miscellaneous Notes * Telephone Encounter - Nikki Martin RN - 12/13/2019 4:12 PM CDT Refilled Ativan #60 no refills patient to f/u in January documented in this encounter Plan of Treatment Upcoming Encounters Date Type Department Care Team (Late st Contact Info) Description 08/24/2024 2:45 PM RUBBER TUBING SPLICER Telemedicine [facility] Neurology [facility] #2 [place] [address] Jack Dukes MD #2 [place] [address] 08/26/2024 1:20 PM RUBBER TUBING SPLICER Office Visit [facility] Oncology Services [address] [place] [address] Phan Grant MD [address] [place] [address] Discharge Disposition: Discharged to home or Selfcare documented as of this encounter Visit Diagnoses Not on filedocumented in this encounter Care Teams [place] Marshal Relationship Specialty Start Date End Date Arianne Alarcon APRN, CNP [address] [place], [place] [id number] PCP - General Family Medicine 08/29/16 Jack Dukes MD #[address] [place] [address] Consulting Physician Neurology 08/21/16 Lito Chatterjee MD [address] [place] [address] Consulting Physician General Surgery 04/27/19 Gustabo Falk MD [address] [place] [address] Consulting Physician Radiation Oncology 04/27/19 Alfred Ochoa MD [address] [place] [address] Consulting Physician Medical Oncology 04/27/19 02/15/20 Amrit Goddard MD #[address] [address] Consulting Physician General Surgery 06/08/19 Phan Grant MD [address] [place] [address] Consulting Physician Medical Oncology 02/16/20 documented as of this encounter
--- OUTSIDE RECORDS SUMMARY | 2024-08-23 18:10 | XMS_ITS | Encounter Summary ---
Author Organization [facility] Address [address] [place] [address] Phone Care Team Providers Care Administrative Support Specialist Name Role Phone Jack Dukes MD Unavailable [phone] Arianne Alarcon APRN, RECORD MAKER Primary Care Provider [phone] Lito Chatterjee MD Unavailable [phone] Gustabo Falk MD Unavailable [phone] Amrit Goddard MD Unavailable Phan Grant MD Unavailable [phone] Reason for Visit * Reason Comments Medication Refill Encounter Details Date Type Department Care Team (Late st Contact Info) Description 03/22/2022 Refill 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 #2 [place] [address] Jack Dukes MD [address] [place] [address] 08/26/2024 1:20 PM CHIP SILO TENDER Office Visit [facility] Oncology Services [address] [place] [address] Phan Grant MD [address] [place], [place] [phone] Discharge Disposition: Discharged to home or Selfcare documented as of this encounter Visit Diagnoses Diagnosis Seizures (HCC) Other convulsions documented in this encounter Care Teams Administrative Support Specialist Relationship Specialty Start Date End Date Arianne Alarcon APRN, CNP [address] [place] [address] PCP - General Family Medicine 08/29/16 Jack Dukes MD [address] [place] [address] Consulting Physician Neurology 08/21/16 Lito Chatterjee MD [address] [place] [address] Consulting Physician General Surgery 04/27/19 Gustabo Falk MD [address] [place] [address] Consulting Physician Radiation Oncology 04/27/19 Amrit Goddard MD #[address] [address] Consulting Physician General Surgery 06/08/19 Phan Grant MD [address] [place] [address] Consulting Physician Medical Oncology 02/16/20 documented as of this encounter
--- OUTSIDE RECORDS SUMMARY | 2024-08-23 18:10 | XMS_ITS | Encounter Summary ---
Author Organization [facility] Address [address] [facility] [place] [address] Phone Care Team Providers Care Cake Press Operator Helper Name Role Phone Jack Dukes MD Unavailable [phone] Arianne Alarcon APRN, INSIDE METER TESTER Primary Care Provider Lito Chatterjee MD Unavailable [phone] Gustabo Falk MD Unavailable [phone] Alfred Ochoa MD Unavailable Amrit Goddard MD Unavailable Phan Grant MD Unavailable [phone] Reason for Visit * Reason Comments Medication Refill Encounter Details Date Type Department Care Team (Late st Contact Info) Description [facility]/07/[facility] [address] [place] [address] Alfred Ochoa MD [address] [place] [address] Medication Refill Social History Tobacco Use Types Packs/Day Years Used Date Smoking Tobacco: Never Smokeless Tobacco: Never Alcohol Use Standard Drinks/Week Comments No 0 (1 standard drink = 0.6 oz pur e alcohol) Comments No Sex and Gender Information Value Date Recorded Sex Assigned at Not on file Legal Sex Female 2:52 AM CATALOGUE LIBRARIAN Gender Identity Not on file Sexual Orientation Not on file 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 No / Unsure 12/21/2019 11:50 AM CDT documented as of this encounter Miscellaneous Notes * Telephone Encounter - Nikki Martin RN - 01/12/2020 9:56 AM CDT Refilled Lorazepam documented in this encounter Plan of Treatment Upcoming Encounters Date Type Department Care Team (Late st Contact Info) Description 08/24/2024 2:45 PM CATALOGUE LIBRARIAN Telemedicine [facility] Neurology [facility] #2 [place] [address] Jack Dukes MD [address] [place] [address] 08/26/2024 1:20 PM CATALOGUE LIBRARIAN Office Visit [facility] Oncology Services [address] [place] [address] Phan Grant MD [address] [place] [address] Discharge Disposition: Discharged to home or Selfcare documented as of this encounter Visit Diagnoses Not on filedocumented in this encounter Care Teams Cake Press Operator Helper Relationship Specialty Start Date End Date Arianne Alarcon APRN, INSIDE METER TESTER [address] [place] [address] PCP - General Family Medicine 08/29/16 Jack Dukes MD [address] [place] [address] Consulting Physician Neurology 08/21/16 Lito Chatterjee MD [address] [place] [address] Consulting Physician General Surgery 04/27/19 Gustabo Falk MD [address] [place] [address] Consulting Physician Radiation Oncology 04/27/19 Alfred Ochoa MD [address] [place] [address] Consulting Physician Medical Oncology 04/27/19 02/15/20 Amrit [facility]ard MD [facility] [facility] [address] [address] Consulting Physician General Surgery 06/08/19 Phan Grant MD [address] [place] [address] Consulting Physician Medical Oncology 02/16/20 documented as of this encounter
--- OUTSIDE RECORDS SUMMARY | 2024-08-23 18:10 | XMS_ITS | Referral Summary ---
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 Mud Analysis Name Role Phone Arianne Alarcon NP Primary Care Provider Derrick Walker MD Unavailable [phone] Encounters Date Type Department Care Team Description 08/04/2024 11:25 AM RN HOME HEALTH - 08/06/2024 3:15 PM RN HOME HEALTH Hospital Encounter [facility] Medical Care [address] [place] [address] Daniel Torres MD Sinha, Chandni, MD Alcohol withdrawal syndrome without complication (HCC) (Primary Dx) Discharge Disposition: Discharge to home or self care 08/05/2024 Documentation [facility] Warm Hand Off Program [address] [place], [place] [phone] Min Arellano 08/04/2024 Documentation [facility] Warm Hand Off Program [address] [place], [place] [phone] Ana Nair from Last 3 Months Allergies Active Allergy Reactions Criticality Noted Date [...] (07/31/2020): Added automatically from request for surgery [id number] History of breast cancer 02/10/2020 Overview (02/10/2020): Added automatically from request for surgery [id number] Anxiety 02/08/2020 Sensory neuropathy 02/08/2020 Nodule of soft tissue 01/18/2020 Breast neoplasm, Tx, right 11/25/2019 Peripheral neuropathy due to chemotherapy 2019 S/P vascular surgery 06/08/2019 Estrogen receptor negative status (ER-) 05/06/20 HER2-negative carcinoma of right breast 05/06/20 19 Premenopausal patient 04/22/2019 Abscess 02/19/2011 Allergy 02/19/2011 Seizure 03/29/2010 Low back pain 02/16/2009 Overview (10/09/2016): Lumbago Atopic rhinitis 02/16/2009 Overview (10/09/2016): Allergic Rhinitis NOS Depression 02/16/2009 Overview (10/09/2016): DEPRESSIVE DISORDER NEC Immunizations Immunization Administration Dates Next Due Influenza, Quadrivalent, Spl it, Preservative Free, Intramuscular 04/07/2020,05/25/2019 Influenza, Trivalent, IM (MDV) 03/22/2014 Td, adsorbed 02/19/2011,02/16/2009 Social History Tobacco Use Types Packs/Day Years Used Date Smoking Tobacco: Never Smokeless Tobacco: Never Alcohol Use Standard Drinks/Week Comments No 0 (1 standard drink = 0.6 oz pur e alcohol) [facility] Utilities Answer Date Recorded In the past 12 months has [employer], [email or web address], oil, or water [employer] threatened to shut off services in your [...] week 08/05/2024 How often do you attend [facility] or restorationist services? More than 4 times per year 08/05/2024 Do you belong to any clubs o r organizations such as voodoo groups, unions, fraternal or athletic groups, or [...] any time in the past 12 m [place], were you homeless or living in a assisted (including now)? No 08/05/2024 Personal Safety Answer Date Recorded Have you ever been in or are you currently in a harmful physical or emotional relationship or is someone making you feel afraid or unsafe? Denies 08/04/2024 Comments No Sex and Gender Information Value Date Recorded Sex Assigned at Not on file Legal Sex Female 12:33 AM RN HOME HEALTH Gender Identity Female 06/06/2021 8:34 AM RN HOME HEALTH Sexual Orientation Straight 06/06/2021 8: 34 AM RN HOME HEALTH Last Filed Vital Signs Vital Sign Reading Time Taken Comments Blood Pressure 100/80 08/06/2024 7:12 AM RN HOME HEALTH Pulse 94 08/06/2024 7:12 AM RN HOME HEALTH Temperature 36.4 C (97.6 F) 08/06/2024 7:12 AM RN HOME HEALTH Respiratory Rate 18 08/06/2024 7:12 AM RN HOME HEALTH Oxygen Saturation 94% 08/06/2024 7:12 AM RN HOME HEALTH Inhaled Oxygen Concentration - - Weight 77.1 kg (170 lb) 08/04/2024 6:27 PM RN HOME HEALTH Height 165.1 cm (5' 5 ) 08/04/2024 6:27 PM RN HOME HEALTH Body Mass Index 28.29 08/04/2024 6:27 PM RN HOME HEALTH Plan of Treatment Not on file Medical Devices Implanted Type Area Coating And Embossing Unit Operator Device Identifier Shelf Expiration Date Model / Serial / Lot [employer] 68-120 Natrelle 9cm Style 68mp Smooth Anterior Diaphragm Valve P3cm Latex Free - [id number] - [id number] Implanted:Qty: 1 on 03/16/2021 by Derrick Walker MD at [facility] Medicine Breast Left: Breast [employer] 04/09/2024 68-120 / [id number] / [employer] [id number] Alloderm Select [id number] Allograft Regenerative Freeze Dried - [id number] - [id number] Implanted:Qty: 1 on 12/24/2019 by Derrick Walker MD at [facility] Left: Breast [employer] 11/03/2020 [id number] / [id number] / [employer] [id number] Alloderm Select [id number] Allograft Regenerative Freeze Dried - [id number] - [id number] Implanted:Qty: 1 on 12/24/2019 by Derrick Walker MD at [facility] Right: Breast [employer] 10/04/2020 [id number] / [id number] / Synovis [email or web address] Allian [id number] Hungry Horse Microvascular 2.5mm Ring Pin Protective Cover Jaw Assembly Latex Free - [id number] Implanted:Qty: 1 on 04/06/2020 by Derrick Walker MD at [facility] Right: Breast [employer]is 9158 [email or web address] Allian 10/13/2024 [id number] / / Syn[employer]is [id number] [email or web address] Allian [id number] Hungry Horse Microvascular 2.5mm Ring Pin Protective Cover Jaw Assembly Latex Free - [id number] Implanted:Qty: 1 on 04/06/2020 by Derrick Walker MD at [facility] Left: Breast Syn[employer] 9158 [email or web address] [facility] 10/23/2024 [id number] / / [id number] [employer]er[employer] 68-120 Natrelle 9cm Style 68mp Smooth Anterior Diaphragm Valve P3cm Latex Free - [id number] - [id number] Implanted:Qty: 1 on 03/16/2021 by Derrick Walker MD at [facility] Left: Breast [employer] 08/30/2023 68-120 / [id number] / Explanted Type Area Coating And Embossing Unit Operator Device Identifier Shelf Expiration Date Model / Serial / Lot Sientra Inc Allox2-Fh15e Allox2 15x13.8cm Texture Integrate Port Breast P6.4-7.9cm Full - [id number] Implanted:Qty: 1 on 12/24/2019 by Derrick Walker MD at [facility] Explanted:Qty: 1 on 04/06/2020 by Derrick Walker MD at [facility] Breast Left: Breast [employer] 11/03/2024 ALLOX2-[id number] [id number] / / Sient[employer] Inc Allox2-[id number] Allox2 15x13.8cm Texture Integrate Port Breast P6.4-7.9cm Full - [id number] Implanted:Qty: 1 on 12/24/2019 by Derrick Walker MD at [facility] Explanted:Qty: 1 on 04/06/2020 by Derrick Walker MD at [facility] Right: Breast [employer] 11/03/2024 ALLOX2-[id number] 5E / / Procedures Procedure Name Priority Date/Time Associated Diagnosis Comments XR SHOULDER RIGHT 2 OR MORE VIEWS IP Routine 08/06/2024 9:39 AM RN HOME HEALTH EGFR Routine 08/06/2024 5:36 AM RN HOME HEALTH DIFFERENTIAL AUTO Routine 08/06/2024 5:3 6 AM RN HOME HEALTH CBC WITH AUTO DIFFERENTIAL Routine 08/06/2024 5:36 AM RN HOME HEALTH PHOSPHORUS Routine 08/06/2024 5:36 AM RN HOME HEALTH MAGNESIUM Routine 08/06/2024 5:36 AM RN HOME HEALTH BASIC METABOLIC PANEL Routine 08/06/2024 5:36 AM RN HOME HEALTH PRO B-TYPE NATRIURETIC PEPTIDE Add-On 08/05/2024 5:22 AM RN HOME HEALTH EGFR Routine 08/05/2024 5:22 AM RN HOME HEALTH DIFFERENTIAL AUTO Routine 08/05/2024 5:2 2 AM RN HOME HEALTH CBC WITH AUTO DIFFERENTIAL Routine 08/05/2024 5:22 AM RN HOME HEALTH PHOSPHORUS Routine 08/05/2024 5:22 AM RN HOME HEALTH MAGNESIUM Routine 08/05/2024 5:22 AM RN HOME HEALTH BASIC METABOLIC PANEL Routine 08/05/2024 5:22 AM RN HOME HEALTH URINALYSIS, MICROSCOPIC ONLY STAT 08/05/2024 3:22 AM RN HOME HEALTH URINALYSIS AND REFLEX TO MICROSCOPIC AND CULTURE STAT 08/05/2024 3:22 AM RN HOME HEALTH US VEIN DUPLEX LOWER EXTREMITY LEFT LIMITED IP Routine 08/04/2024 5:23 PM RN HOME HEALTH ECG 12-LEAD Routine 08/04/2024 2:14 PM RN HOME HEALTH PRO B-TYPE NATRIURETIC PEPTIDE STAT 08/04/2024 11:34 AM RN HOME HEALTH EGFR STAT 08/04/2024 11:34 AM RN HOME HEALTH DIFFERENTIAL AUTO STAT 08/04/2024 11: 34 AM RN HOME HEALTH MAGNESIUM Routine 08/04/2024 11:34 AM RN HOME HEALTH LIPASE STAT 08/04/2024 11:34 AM RN HOME HEALTH ETHANOL STAT 08/04/2024 11:34 AM RN HOME HEALTH COMPREHENSIVE METABOLIC PANEL STAT 08/04/2024 11:34 AM RN HOME HEALTH CBC WITH AUTO DIFFERENTIAL STAT 08/04/2024 11:34 AM RN HOME HEALTH INFLUENZA A/B, RSV, AND COVID-19 PCR Routine 08/04/2024 11:34 AM RN HOME HEALTH DIAGNOSTIC MAMMOGRAM BILATERAL W MARY ANNE Routine 05/11/2015 11:49 AM RN HOME HEALTH from Last 3 Months or Most Recently Relevant to Health Maintenance Results * XR Shoulder Right 2 or More Views (08/06/2024 9:39 AM RN HOME HEALTH) Anatomical Region Laterality Modality Upper Extremities, Shoulder Right Comp uted Radiography 08/06/2024 12:1 9 PM RN HOME HEALTH Narrative 08/06/2024 12:22 PM RN HOME HEALTH EXAM DESCRIPTION: XR SHOULDER RIGHT 2 OR [...] Anurag Almeida M.D. MZ: MZ Report ID: [id number] Reading Location: [place] [address] Procedure Note Anurag Almeida MD - 08/06/2024 [...] Anurag Almeida M.D. MZ: MZ Report ID: [id number] Reading Location: [place] [address] Chian Silva MD IMG XR PROCEDURES Final Result * eGFR (08/06/2024 5:36 AM RN HOME HEALTH) eGFR 78 >=60 mL/min/1. 73 m2 Comment: [...] last reviewed 2021. Blood 08/06/2024 5:36 AM RN HOME HEALTH 08/06/2024 6:19 AM RN HOME HEALTH us China Silva MD LAB BLOOD ORDERABLES Final Resu lt [facility] ([facility]) 1 [facility] Department [place] [address] * Differential, auto (08/06/2024 5:36 AM RN HOME HEALTH) Neutrophil abs 2.4 1.5 - 6.5 K/cumm Imm gran abs 0.0 0.0 - 0.1 K/cumm [facility] ([place]) Lymphocyte abs 1.7 0.8 - 3.3 K/cumm [facility] ([place]) Monocyte abs 0.4 0.2 - 0.8 K/cumm [facility] ([place]) Eosinophil abs 0.0 0.0 - 0.5 K/cumm [...] revised on 2017. Blood 08/06/2024 5:36 AM RN HOME HEALTH 08/06/2024 6:19 AM RN HOME HEALTH us China Silva MD LAB BLOOD ORDERABLES Final Resu lt [facility] ([facility] 1 [facility] Department [place] [address] * (ABNORMAL) CBC with auto differential (08/06/2024 5:36 AM RN HOME HEALTH) WBC 4.5 3.8 - 9.9 K/cumm Hgb [...] NRBC abs 0.00 0.00 - 0.01 K[facility]cumm [facility] Blood 08/06/2024 5:36 AM RN HOME HEALTH 08/06/2024 6:19 AM RN HOME HEALTH China Silva MD LAB BLOOD ORDERABLES Final Resu lt Performing Organization Address City/[facility]/ZIP Co de Phone Number [facility] ([place]) 1 [facility] [place] [place] [address] * Phosphorus (08/06/2024 5:36 AM RN HOME HEALTH) Phosphorus, pl 4.4 2.3 - 4.5 mg/dL Blood 08/06/2024 5:36 AM RN HOME HEALTH 08/06/2024 6:19 AM RN HOME HEALTH China Silva MD LAB BLOOD ORDERABLES Final Resu lt Performing Organization Address [facility] Co de Phone Number [facility] ([facility] 1 [facility] [place] [address] * Magnesium (08/06/2024 5:36 AM RN HOME HEALTH) Magnesium 2.0 1.4 - 2.5 mg/dL Blood 08/06/2024 5:36 AM RN HOME HEALTH 08/06/2024 6:19 AM RN HOME HEALTH China Silva MD LAB BLOOD ORDERABLES Final Resu lt Performing Organization Address [facility] Co de Phone Number [facility] ([place]) 1 [facility] [place] [address] * Basic metabolic panel (08/06/2024 5:36 AM RN HOME HEALTH) Sodium 139 135 - 145 mmol/L Potassium, pl 3.8 3.3 - 4.9 mmol/L [facility] ([place]) Chloride 104 97 - 110 mmol/L [facility] ([place] CO2 25 22 - 32 mmol/L [facility] ([place]) Anion gap 11 2 - 15 mmol/L [facility] ([place]) BUN 6 6 - 25 mg/dL [facility] ([place]) Creatinine 0.91 0.60 - 1.10 mg/dL [facility] ([place]) Glucose 98 70 - 199 mg/dL [facility] ([place]) Comment: Interpretive Data Fasting glucose >/= [...] 2022. Calcium 8.9 8.5 - 10.3 mg/dL [facility] ([place]) Blood 08/06/2024 5:36 AM RN HOME HEALTH 08/06/2024 6:19 AM RN HOME HEALTH us China Silva MD LAB BLOOD ORDERABLES Final Resu lt [facility] ([place]) 1 [facility] Department [place] [address] * eGFR (08/05/2024 5:22 AM RN HOME HEALTH) eGFR 70 >=60 mL/min/1. 73 m2 Comment: [...] last reviewed 2021. Blood 08/05/2024 5:22 AM RN HOME HEALTH 08/05/2024 5:39 AM RN HOME HEALTH us China Silva MD LAB BLOOD ORDERABLES Final Resu lt [facility] ([place]) 1 [facility] Department [place] [address] * Differential, auto (08/05/2024 5:22 AM RN HOME HEALTH) Neutrophil abs 2.2 1.5 - 6.5 K/cumm Imm gran abs 0.0 0.0 - 0.1 K/cumm [facility] ([place]) Lymphocyte abs 1.5 0.8 - 3.3 K/cumm [facility] ([place]) Monocyte abs 0.4 0.2 - 0.8 K/cumm [facility] ([place]) Eosinophil abs 0.0 0.0 - 0.5 K/cumm [...] revised on 2017. Eosinophil pct 0.0 % [facility] ([place]) Comment: Interpretive Data Percent cell count reference ranges are not reported, since discordance with absolute values may lead to misinterpretation of CBC data. Current Interpretive Data was last revised on 2017. Basophil pct 0.5 % [facility] ([facility]) Comment: Interpretive Data Percent cell count reference ranges are not reported, since discordance with absolute values may lead to misinterpretation of CBC data. Current Interpretive Data was last revised on 2017. Blood 08/05/2024 5:22 AM RN HOME HEALTH 08/05/2024 5:39 AM RN HOME HEALTH us China Silva MD LAB BLOOD ORDERABLES Final Resu lt [facility] ([facility]) 1 [facility] Department [place] [address] * Pro B-type natriuretic peptide (08/05/2024 5:22 AM RN HOME HEALTH) NT-proBNP 241 <=300 pg/mL Comment: Interpretive Comments: [...] Revised Date: 2018. Blood 08/05/2024 5:22 AM RN HOME HEALTH 08/05/2024 9:21 AM RN HOME HEALTH us China Silva MD LAB BLOOD ORDERABLES Final Resu lt [facility] ([place]) 1 [facility] Department [place] [address] * (ABNORMAL) CBC with auto differential (08/05/2024 5:22 AM RN HOME HEALTH) WBC 4.2 3.8 - 9.9 K/cumm Hgb [...] [facility] ([place]) Blood 08/05/2024 5:22 AM RN HOME HEALTH 08/05/2024 5:39 AM RN HOME HEALTH China Silva MD LAB BLOOD ORDERABLES Final Resu lt [facility] ([place]) 1 [facility] [place] [address] * Phosphorus (08/05/2024 5:22 AM RN HOME HEALTH) Phosphorus, pl 3.9 2.3 - 4.5 mg/dL Blood 08/05/2024 5:22 AM RN HOME HEALTH 08/05/2024 5:39 AM RN HOME HEALTH China Silva MD LAB BLOOD ORDERABLES Final Resu lt Performing Organization Address [facility]/ZIP Co de Phone Number [facility] ([place]) 1 [facility] [place] [address] * Magnesium (08/05/2024 5:22 AM RN HOME HEALTH) Magnesium 2.0 1.4 - 2.5 mg/dL Blood 08/05/2024 5:22 AM RN HOME HEALTH 08/05/2024 5:39 AM RN HOME HEALTH China Silva MD LAB BLOOD ORDERABLES Final Resu lt Performing Organization Address [facility]/ZIP Co de Phone Number [facility] ([place]) 1 [facility] [place] [address] * (ABNORMAL) Basic metabolic panel (08/05/2024 5:22 AM RN HOME HEALTH) Sodium 140 135 - 145 mmol/L Potassium, pl 4.3 3.3 - 4.9 mmol/L [facility] ([place]) Chloride 108 97 - 110 mmol/L [facility] ([place]) CO2 25 22 - 32 mmol/L [facility] ([place]) Anion gap 8 2 - 15 mmol/L [facility] ([place]) BUN 5(L) 6 - 25 mg/dL [...] classification and Diagnosis of Diabetes Diabetes Care 202; 46: S19-S40. Current interpretive data was last revised 2022. Calcium 8.9 8.5 - 10.3 mg/dL [facility] ([place]) Blood 08/05/2024 5:22 AM RN HOME HEALTH 08/05/2024 5:39 AM RN HOME HEALTH us China Silva MD LAB BLOOD ORDERABLES Final Resu lt [facility] ([facility] 1 [facility] Department [place] [address] * (ABNORMAL) Urinalysis reflex to microscopic and culture Urine (08/05/2024 3:22 AM RN HOME HEALTH) Color, ur Yellow Yellow Clarity, ur Clear Clear [facility] ([place]) Specific gravity, ur 1.010 1.003 - 1.030 [facility] ([place]) pH, urine 6.0 [facility] Comment: Interpretive Data U rine pH is affected by diet, medications, systemic acid-base disturbances, and renal tubular function. pH may affect urinary stone formation. For example, urine pH below 6.0 may help reduce the tendency for calcium phosphate stones and pH greater than 6.0 may reduce the tendency for uric acid stone formation. Source: [facility] [employer] Current Interpretive Data was last revised on [...] [facility] ([place]) Urine 08/05/2024 3:22 AM RN HOME HEALTH 08/05/2024 3:26 AM RN HOME HEALTH us China Silva MD LAB MICROBIOLOGY - GENERAL ROBYN CHASE Final Result Performing Organization Address [facility]/ZIP Co de Phone Number [facility] ([place]) 1 [facility] [place] [address] * (ABNORMAL) Urinalysis, microscopic only (08/05/2024 3:22 AM RN HOME HEALTH) WBC, ur 6-10(A) 0 - 5 /HPF RBC, ur 3-5(A) 0 - 2 /HPF [facility] ([place]) Epithelial cells, squamous, ur 1-5 0 - 5 /HPF [facility] ([place]) Culture Reflex Comment Reflex conditions for urine culture (WBC >10) not met. [facility] ([place]) Urine 08/05/2024 3:22 AM RN HOME HEALTH 08/05/2024 3:26 AM RN HOME HEALTH us Daniel Torres MD LAB URINE ORDERABLES Final R esult Performing Organization Address [facility]/ZIP Co de Phone Number [facility] ([place]) 1 [facility] [place] [address] * US VEIN DUPLEX LOWER EXTREMITY LEFT LIMITED, UNILATERAL (08/04/2024 5:23 PM RN HOME HEALTH) Anatomical Region Laterality Modality Vascular Left Ultrasound 08/04/2024 7:57 PM RN HOME HEALTH Narrative 08/04/2024 7:58 PM RN HOME HEALTH EXAM DESCRIPTION: US VEIN DUPLEX LOWER EXTREMITY [...] Feliciano Abraham M.D. NS: NS Report ID: [id number] Reading Location: [id number] Procedure Note Feliciano Abraham MD - 08/04/2024 [...] Feliciano Abraham M.D. NS: NS Report ID: [id number] Reading Location: [id number] China Silva MD [facility] US PROCEDURES Final Result * ECG 12 lead (08/04/2024 2:14 PM RN HOME HEALTH) 08/04/2024 2:14 PM RN HOME HEALTH Narrative [facility] - 08/04/2024 4:33 PM RN HOME HEALTH Vent Rate: 92 bpm RR Interval: 646 msec [place] Interval: 219 msec QRS Duration: 73 msec QT Interval: 358 msec QTC Interval: 408 msec P-R-T [place]: 37 - 18 - 35 degrees IMPRESSION: SINUS RHYTHM WITH FIRST DEGREE AV BLOCK LOW QRS VOLTAGE IN PRECORDIAL LEADS [QRS DEFLECTION < 1.0 mV IN CHEST LEADS] ABNORMAL ECG Electronically Signed By: Damion Rodriguez MD us Daniel Torres MD ECG ORDERABLES Final Result [facility] * Influenza A/B, RSV, and COVID-19 PCR Nasopharyngeal (08/04/2024 11:34 AM RN HOME HEALTH) COVID-19 RNA Negative Negative Influenza A RNA Negative Negative [facility] ([place]) Influenza B RNA Negative Negative [facility] ([place]) RSV RNA Negative Negative [facility] ([place]) Comment: Interpretive data: Testing performed by [facility]. This test is performed using the [employer] Xpert Xpress CoV-2/Flu/RSV plus assay. This is a multiplex, real- time reverse transcriptase PCR assay intended for the qualitative detection of nucleic acid from SARS-CoV-2, influenza A, influenza B, and respiratory syncytial virus. This assay has been cleared by the [place] Food and Drug administration. The performance characteristics have been verified by the [facility]. Results must be considered in the clinical context, and a negative result does not rule out infection. Interpretive Data last revised 2023 Nasopharyngeal 08/04/2024 11 :34 AM RN HOME HEALTH 08/04/2024 11:39 AM RN HOME HEALTH Narrative [facility] ([facility] - 08/04/2024 12:23 PM RN HOME HEALTH Is the Patient experiencing symptoms consistent with COVID?->Unknown Flor Sanchez MD LAB MICROBIOLOGY - GENERA L ORDERABLES Final Result [facility] ([facility] 1 [facility] Department [place] [address] * eGFR (08/04/2024 11:34 AM RN HOME HEALTH) eGFR 71 >=60 mL/min/1. 73 m2 Comment: [...] reviewed 2021. Blood 08/04/2024 11:3 4 AM RN HOME HEALTH 08/04/2024 11:39 AM RN HOME HEALTH us Daniel Torres MD LAB BLOOD ORDERABLES Final R esult [facility] ([facility] 1 [facility] Department [place] [address] * Differential, auto (08/04/2024 11:34 AM RN HOME HEALTH) Neutrophil abs 3.4 1.5 - 6.5 K/cumm Imm gran abs 0.0 0.0 - 0.1 K/cumm [facility] ([place]) Lymphocyte abs 1.6 0.8 - 3.3 K/cumm [facility] ([place]) Monocyte abs 0.5 0.2 - 0.8 K/cumm [facility] ([place]) Eosinophil abs 0.0 0.0 - 0.5 K/cumm [facility] ([place]) Basophil abs 0.0 0.0 - 0.1 K/cumm [facility] ([place]) Neutrophil pct 62.0 % [facility] ([place]) Comment: Interpretive Data Percent cell count reference ranges are not reported, since discordance with absolute values may lead to misinterpretation of CBC data. Current Interpretive Data was last revised on 2017. Imm gran pct 0.4 % [facility] ([place]) Comment: Interpretive Data Percent cell count reference ranges are not reported, since discordance with absolute values may lead to misinterpretation of CBC data. Current Interpretive Data was last revised on 2017. Lymphocyte pct 28.0 % [facility] ([place]) Comment: Interpretive [...] on 2017. Blood 08/04/2024 11:3 4 AM RN HOME HEALTH 08/04/2024 11:40 AM RN HOME HEALTH us Daniel Torres MD LAB BLOOD ORDERABLES Final R esult [facility] ([place]) 1 [facility] [place] [address] * Pro B-type natriuretic peptide (08/04/2024 11:34 AM RN HOME HEALTH) NT-proBNP 278 <=300 pg/mL Comment: Interpretive Comments: [...] Date: 2018. Blood 08/04/2024 11:3 4 AM RN HOME HEALTH 08/04/2024 12:48 PM RN HOME HEALTH Daniel Torres MD LAB BLOOD ORDERABLES Final R esult [facility] ([facility] 1 [facility] [place] [address] * (ABNORMAL) CBC with auto differential (08/04/2024 11:34 AM RN HOME HEALTH) WBC 5.5 3.8 - 9.9 K/cumm Hgb 12.5 11.9 - 15.5 g/dL [facility] ([place]) Hct 36.9 35.6 - 45.5 % [facility] ([place]) Plt 355 150 - 400 K/cumm [facility] ([place]) MPV 8.6(L) 9.1 - 12.3 fL [facility] ([place]) RBC 3.97 3.90 - 5.20 M/cumm [facility] ([place]) MCV 92.9 81.3 - 96.4 fL [facility] ([place]) MCH 31.5 27.1 - 33.3 pg [facility] ([place]) MCHC 33.9 32.3 - 35.7 g/dL [facility] ([place]) RDW CV 12.4 11.1 - 14.9 % [facility] ([place]) RDW SD 42.6 35.7 - 48.1 fL [facility] ([place]) NRBC abs 0.00 0.00 - 0.01 K/cumm [facility] ([place]) Blood 08/04/2024 11:3 4 AM RN HOME HEALTH 08/04/2024 11:40 AM RN HOME HEALTH Daniel Torres MD LAB BLOOD ORDERABLES Final R esult Performing Organization Address [facility]/ZIP Co de Phone Number [facility] ([place]) 1 [facility] [place] [address] * Magnesium (08/04/2024 11:34 AM RN HOME HEALTH) Magnesium 1.9 1.4 - 2.5 mg/dL Blood 08/04/2024 11:3 4 AM RN HOME HEALTH 08/04/2024 11:39 AM RN HOME HEALTH Daniel Torres MD LAB BLOOD ORDERABLES Final R esult Performing Organization Address [facility]/ZIP Co de Phone Number [facility] ([facility] 1 [facility] [place] [address] * Lipase (08/04/2024 11:34 AM RN HOME HEALTH) Lipase 15 10 - 99 Units/L Blood 08/04/2024 11:3 4 AM RN HOME HEALTH 08/04/2024 11:39 AM RN HOME HEALTH Daniel Torres MD LAB BLOOD ORDERABLES [facility] ([place]) 1 [facility] [place] [address] * (ABNORMAL) Ethanol (08/04/2024 11:34 AM RN HOME HEALTH) Ethanol 37(H) <=10 mg/dL Comment: Interpretive Data Legal limit of intoxication > or = 80 mg/dL Levels > or = 400 mg/dL are potentially TOXIC. Current interpretive data was last revised on 2018. Blood 08/04/2024 11:3 4 AM RN HOME HEALTH 08/04/2024 11:39 AM RN HOME HEALTH Daniel Torres MD LAB BLOOD ORDERABLES Final R pending sale to [facility] Performing Organization Address City/[facility] Co de Phone Number [facility] ([place]) 1 [facility] [place] [address] * Comprehensive metabolic panel (08/04/2024 11:34 AM RN HOME HEALTH) Sodium 140 135 - 145 mmol/L Potassium, pl 3.5 3.3 - 4.9 mmol/L [facility] ([place]) Chloride 103 97 - 110 mmol/L [facility] ([place] CO2 25 22 - 32 mmol/L [facility] Anion gap 12 2 - 15 mmol/L [facility] ([place]) BUN 6 6 - 25 mg/dL [facility] ([place]) Creatinine 0.98 0.60 - 1.10 mg/dL [facility] Glucose 121 70 - 199 mg/dL [facility] ([place]) Comment: Interpretive Data Fasting glucose [...] [facility] ([place]) Blood 08/04/2024 11:3 4 AM RN HOME HEALTH 08/04/2024 11:39 AM RN HOME HEALTH Daniel Torres MD LAB BLOOD ORDERABLES Final R esult [facility] ([place]) 1 [facility] [place] [address] * DIAGNOSTIC MAMMOGRAM BILATERAL W MARY ANNE (05/11/2015 11:49 AM RN HOME HEALTH) Anatomical Region Laterality Modality Breast Bilateral Mammography 05/11/2015 11:4 9 AM RN HOME HEALTH Narrative 05/11/2015 11:11 PM RN HOME HEALTH SCREENING MAMM W MARY ANNE BI Acc#: [id number] Screening Mamm Bi Acc#: [id number] DATE OF EXAM: May 11 2015 Performed [...] May 11 2015 2:42P Approved Electronically by: DR ANTWAN LTAHAM M.D. on: May 11 2015 11:11P Attending: ROD DUQUE Requesting: ROD DUQUE Requesting Fax: -- Attending Fax: -- Attending ID: [id number] Requesting ID: [id number] Report To 1 ID: [id number] Report To 1 Name: ROD DUQUE Report To 1 FAX: -- NextGen Order #: Procedure Note Provider, MD Manuelito - 10/31/2016 SCREENING MAMM W MARY ANNE BI Acc#: [id number] Screening Mamm Bi Acc#: [id number] DATE OF EXAM: May 11 2015 Performed [...] May 11 2015 2:42P Approved Electronically by: DR ANTWAN LATHAM M.D. on: May 11 201511:11P Attending: ROD DUQUE Requesting: RDO DUQUE Requesting Fax: -- Attending Fax: -- Attending ID: [id number] Requesting ID: [id number] Report To 1 ID: [id number] Report To 1 Name: ROD DUQUE Report To 1 FAX: -- NextGen Order #: Historical Provider MD KUHN MAMMO PROCEDURES Margarita l Result from Last 3 Months or Most Recently Relevant to Health Maintenance Insurance [facility] Advance Directives For more information, please contact: [phone] * Full Code (Latest Code Status on File) Date Activated Date Inactivated Comments 08/04/2024 6:28 PM 08/06/2024 8:23 PM * Full Code Date Activated Date Inactivated Comments 08/04/2024 6:28 PM 08/04/2024 6:28 PM * Full Code Date Activated Date Inactivated Comments 04/06/2020 8:35 PM 04/10/2020 6:28 PM * Full Code Date Activated Date Inactivated Comments 12/24/2019 7:19 PM 12/25/2019 7:34 PM Care Teams Well Logging Captain Mud Analysis Relationship Specialty Start Date End Date Arianne Alarcon NP [address] [place] [address] PCP - General 04/24/17 Derrick Walker MD [address] [place] [address] Consulting Physician Plastic Surgery 12/25/19
--- OUTSIDE RECORDS SUMMARY | 2024-08-23 18:10 | XMS_ITS | Encounter Summary ---
Author Organization [facility] Address [address] [facility] [address] Phone Care Team Providers Care Outsole Paraffiner Name Role Phone Jack Dukes MD Unavailable [phone] Arianne Alarcon APRN, CNP Primary Care Provider [phone] Lito Chatterjee MD Unavailable Gustabo Falk MD Unavailable [phone] Amrit Goddard MD Unavailable Phan Grant MD Unavailable [phone] Reason for Visit * Reason Comments Medication Refill Encounter Details Date Type Department Care Team (Late st Contact Info) Description 06/09/2020 [facility] [address] [place] [address] Phan Grant MD [address] [place] [address] Medication Refill Social History Tobacco Use Types Packs/Day Years Used Date Smoking Tobacco: Never Smokeless Tobacco: Never Alcohol Use Standard Drinks/Week Comments No 0 (1 standard drink = 0.6 oz pur e alcohol) Comments No Sex and Gender Information Value Date Recorded Sex Assigned at Not on file Legal Sex Female 2:52 AM WAN SUPPORT SPECIALIST Gender Identity Not on file Sexual Orientation Not on file 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 No / Unsure 06/08/2020 9:05 AM WAN SUPPORT SPECIALIST documented as of this encounter Miscellaneous Notes * Telephone Encounter - Tanya Hylton APN, CNP - 06/12/2020 1:04 PM WAN SUPPORT SPECIALIST Filled 2 weeks ago. SUPPORT SPECIALIST * Telephone Encounter - Maria Del Carmen Brasher RN - 06/12/2020 1:03 PM CST Request denied; last filled 05/22/20 with 3 refills. SUPPORT SPECIALIST * Telephone Encounter - Maria Del Carmen Brasher RN - 06/12/2020 11:44 AM CST Okay to refill Lorazepam for Lu? Last fill 2 weeks ago. SUPPORT SPECIALIST documented in this encounter Plan of Treatment Upcoming Encounters Date Type Department Care Team (Late st Contact Info) Description 08/24/2024 2:45 PM WAN SUPPORT SPECIALIST Telemedicine [facility] Neurology [facility] [address] [place] [address] Jack Dukes MD [address] [place] [address] 08/26/2024 1:20 PM WAN SUPPORT SPECIALIST Office Visit [facility] - Cancer Center Oncology Services [address] [place] [address] Phan Grant MD [address] [place] [address] Discharge Disposition: Discharged to home or Selfcare documented as of this encounter Visit Diagnoses Not on filedocumented in this encounter Care Teams Outsole Paraffiner Relationship Specialty Start Date End Date Arianne Alarcon APRNROMEL [address] [place] [address] PCP - General Family Medicine 08/29/16 Jack Dukes MD [address] [place] [id number] Consulting Physician Neurology 08/21/16 Lito Chatterjee MD [address] [place] [address] Consulting Physician General Surgery 04/27/19 Gustabo Falk MD [address] [place] [address] Consulting Physician Radiation Oncology 04/27/19 Amrit Goddard MD [address] [address] Consulting Physician General Surgery 06/08/19 Phan Grant MD [address] [place] [address] Consulting Physician Medical Oncology 02/16/20 documented as of this encounter
--- OUTSIDE RECORDS SUMMARY | 2024-08-23 18:10 | XMS_ITS | Encounter Summary ---
Author Organization [facility] Address [address] [place] [address] Phone Care Team Providers Care Mri Assistant Name Role Phone Jack Dukes MD Unavailable [phone] Arianne Alarcon APRN, CLIENT SERVICES ACCOUNT MANAGER Primary Care Provider [phone] Lito Chatterjee MD Unavailable [phone] Gustabo Falk MD Unavailable [phone] Amrit Goddard MD Unavailable Phan Grant MD Unavailable [phone] Reason for Visit * Reason Comments Medication Refill Encounter Details Date Type Department Care Team (Late st Contact Info) Description 01/17/2022 Refill [facility] - Neu[facility] [address] [place] [address] Jack Dukes MD [address] [place] [address] Medication Refill Social History Tobacco Use Types Packs/Day Years Used Date Smoking Tobacco: Never Smokeless Tobacco: Never Alcohol Use Standard Drinks/Week Comments No 0 (1 standard drink = 0.6 oz pur e alcohol) Comments No Sex and Gender Information Value Date Recorded Sex Assigned at Not on file Legal Sex Female 2:52 AM HOME HEALTH OUTREACH COORDINATOR Gender Identity Not on file Sexual Orientation Not on file 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 No / Unsure 12/18/2021 1:05 PM CDT documented as of this encounter Plan of Treatment Upcoming Encounters Date Type Department Care Team (Late st Contact Info) Description 08/24/2024 2:45 PM HOME HEALTH OUTREACH COORDINATOR Telemedicine [facility] Neurology [facility] [address] [place] [address] Jack Dukes MD [address] [place] [address] 08/26/2024 1:20 PM HOME HEALTH OUTREACH COORDINATOR Office Visit [facility] - Cancer Center Oncology Services [address] [place] [address] Phan Grant MD [address] [place], [place] [id number] Discharge Disposition: Discharged to home or Selfcare documented as of this encounter Visit Diagnoses Diagnosis 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) documented in this encounter Care Teams Mri Assistant Relationship Specialty Start Date End Date Arianne Alarcon APRN, ROMEL [address] [place] [address] PCP - General Family Medicine 08/29/16 Jack Dukes MD [address] [place] [address] Consulting Physician Neurology 08/21/16 Lito Chatterjee MD [address] [place] [address] Consulting Physician General Surgery 04/27/19 Gustabo Falk MD [address] [address] Consulting Physician Radiation Oncology 04/27/19 Amrit Goddard MD [address] [address] Consulting Physician General Surgery 06/08/19 Phan Grant MD [address] [place] [address] Consulting Physician Medical Oncology 02/16/20 documented as of this encounter
--- OUTSIDE RECORDS SUMMARY | 2024-08-23 18:10 | XMS_ITS | Continuity of Care Document ---
Author Organization [facility] Address [address] [place] [address] [place] [address] Phone Care Team Providers Care Apparel Trimmings Sales Representative Name Role Phone Massimo Herring MD Unavailable Unavailable Allergies, Adverse Reactions, Alerts Substance Reaction Status Criticality Sulfa (Sulfonamide Antibiotics) Active No Information penicillin G Active No Information amoxicillin Active No Information Medications Medication Instructions Dosage Effective Dates (start - stop) Status Comments hydrocodone-acetam inophen 10 mg-325 mg tablet take 1 by Oral route every 6 hours 1 - Active avoid driving o roperate machines, PRN for pain Adderall 10 mg tablet take 1 Tablet (10MG) by oral route 2 times every day 10 MG - Active Xanax 0.5 mg tablet take 1 tablet (0.5MG) by oral route every 4 - 6 hours 0.5 MG - Active avoid driving or operate machines Lexapro 20 mg tablet take 1 tablet (20MG) by oral route every day 20 MG - Active Procedures Procedure Date OFFICE/OUTPATIENT VISIT, NEW Advance Directives Directive Yes / No Effective Date File Name No Information Encounters Encounter Description Practice Location Reason(s) For Visit Diagnoses Date Provider Providers Copied on Encounter [facility], [address] [place], [place], [id number], tel:[phone] [facility] Medicine No Information [address] [facility] [place], [id number] , [place]. tel:[phone] Referring Provider: Massimo Herring, [address] [place], [place], [id number]. tel:[phone] OFFICE/OUTPAT IENT VISIT, [facility], [address], [place], [id number], tel:[phone] [facility] Seizure (chief complaint) depression (chief complaint) ADD (chief complaint) back pain (chief complaint) Epilepsy, unspecified, without mention of intractable epilepsyLumbago [address] [place], [place], [id number] , . tel:[phone] Referring Provider: Massimo Herring, [address] [place], [place], [address]. tel:[phone] Family History Family Member Type Diagnosis Age At Onset No Information Payers Payer name Insurance type Covered alliance party ID Authoriza tion(s) No Information Social History Type Description Quantity Date Captured Comments Sex Female Smoking Status No Information Chief Complaint And Reason For Visit No Information Plan Of Treatment Date Type Action Status No Information History Of Present Illness Encounter Date Complaint History Of Prese nt Illness No Information Instructions Date Instruction Additional Infor mation No Information Assessments Type Assessment Date No Information
--- OUTSIDE RECORDS SUMMARY | 2024-08-23 18:10 | XMS_ITS ---
Author Organization [facility] Address [address] [place] [address] Care Team Providers Care Space And Storage Clerk Name Role Phone Maximiliano Grady Primary Care Provider [facility], SR Adult ROLLY Unavailabl e [phone] Natalie Martinez Unavailable [phone] REASON FOR VISIT DOC Alcohol, has been on Vivitrol in the past but felt like it didn't help, wants to discuss options, Last drink 03/04/24 Social History Sex Assigned At : Social History Observation Description Sex Assigned At Female Encounters Encounter Location Date Provider Diagnosis [address] [address] 03/09/2024 Natalie Martinez Plan Of Treatment No Information Progress Notes * Lu NGUYỄNDOB: [birth year] (49 yo F)Acc No.[id number]:03/09/2024 UNLOCKED PROGRESS NOTE Patient: Lu WALKER Provider: Akin Martinez, MSN, ROR ENGINEER, PMHNP-BC :1975 A ge:48 Y S ex:Female Date:03/09/2024 [facility] Pcp:Maximiliano Grady Subjective: * Chief Complaints: * 1 . DOC Alcohol, has been on Vivitrol in the past but felt like it didn't help, wants to discuss options, Last drink 03/04/24. * Medical History: Objective: * Vitals: Assessment: Plan: * Treatment: * * Electronic signature of Nanette Martinez on 08/23/2024 at 06:10 PM SERGEANT OF OFFICERS Sign off status: Pending * Provider: Akin Martinez, CHARLETTE, ROR ENGINEER, PMHNP-BC Date: 0 03/09/2024 Generated for Printing/Faxing/eTransmitting on: 0 08/23/2024 06:10 PM SERGEANT OF OFFICERS
--- OUTSIDE RECORDS SUMMARY | 2024-08-23 18:11 | XMS_ITS | Referral Summary ---
Author Organization [facility] Address [address] [place] [address] Care Team Providers Care Personal Injury Paralegal Name Role Phone Alarcon, Arianne FLORES Primary Care Provider [phone] Source Comments [facility],non-owned Affiliates and Associated Physician Practices is amultiple site organization consisting of ambulatory clinics and hospital sitesin [place], [place], [place] and [place]. This disclosure is being madepursuant to the Care Everywhere program and may not contain all information available regarding this patient. Last updated 18.[facility] Allergies Active Allergy Reactions Criticality Noted Date Comments Penicillins Urticaria Medium 03/07/2022 Sulfa Drugs Anaphylaxis High 03/07/2022 Medications * Be aware that medications may not be up to date on this document. Alwaysverify current medications with the patient. Medication Sig Dispensed Refills Start Date End Date Status cetirizine (ZyrTEC) 10 MG tablet TAKE ONE TABLET BY MOUTH DAILY NEEDED FOR ANGIOEDEMA 06/12/2021 Active diphenhydrAMINE (Benadryl) 25 MG capsule TAKE ONE CAPSULE BY MOUTH THREE TIMES A DAY NEEDED FOR ALLERGIC REACTION 06/12/2021 Active escitalopram (Lexapro) 20 MG tablet 1 tablet Active gabapentin (Neurontin) 300 MG capsule Take 1 capsule by mouth 3 times daily 01/18/2022 Active lacosamide (Vimpat) 100 MG tablet TAKE ONE (1) TABLET BY MOUTH TWO (2) TIMES DAILY. 03/22/2022 Active lamoTRIgine (LaMICtal) 100 MG tablet 2 tablets Active zolpidem (Ambien) 10 MG tablet 03/28/2022 Active Active Problems Problem Noted Date Diagnosed Date Closed fracture of multiple ribs of left side with routine healing 01/14/2023 Immunizations Name Administration Dates Next Due TDAP (7yrs+) 03/07/2022 Social History Tobacco Use Types Packs/Day Years Used Date Smoking Tobacco: Never Smokeless Tobacco: Never Tobacco Cessation:Counseling Given: No Alcohol Use Standard Drinks/Week Comments Never 0 (1 standard drink = 0.6 oz pur e alcohol) Sex and Gender Information Value Date Recorded Sex Assigned at Female 05/02/2022 12:48 PM CDT Gender Identity Female 05/02/2022 12:48 PM CDT Sexual Orientation Straight 05/02/2022 12 :48 PM CDT Last Filed Vital Signs Vital Sign Reading Time Taken Comments Blood Pressure 112/82 03/12/2022 2:43 PM CDT Pulse 94 03/12/2022 2:43 PM CDT Temperature 36.7 C (98 F) 03/12/2022 2:43 PM CDT Respiratory Rate 16 03/07/2022 4:30 PM CDT Oxygen Saturation 98% 03/12/2022 2:43 PM CDT Inhaled Oxygen Concentration - - Weight 71.2 kg (157 lb) 03/12/2022 2:43 PM CDT Height 165.1 cm (5' 5 ) 03/12/2022 2:43 PM CDT Body Mass Index 26.13 03/12/2022 2:43 PM CDT Plan of Treatment Not on file Procedures Procedure Name Priority Date/Time Associated Diagnosis Comments BASIC METABOLIC PANEL (CALCIUM TOTAL) STAT 03/07/2022 5:08 AM CDT from Last 3 Months or Most Recently Relevant to Health Maintenance Results * (ABNORMAL) BASIC METABOLIC PANEL (CALCIUM TOTAL) (03/07/2022 5:08 AM CDT) BUN 10 7 - 26 mg/dL 03/07/2022 5:42 AM [facility] Creatinine 0.70 0.56 - 0.96 mg/dL 03/07/2022 5:42 AM [facility] Sodium 145 136 - 145 mmol/L 03/07/2022 5:42 AM [facility] Potassium 3.9 3.5 - 4.5 mmol/L 03/07/2022 5:42 AM [facility] Chloride 112(H) 98 - 107 mmol/L 03/07/2022 5:42 AM [facility] CO2 22 22 - 29 mmol/L 03/07/2022 5:42 AM [facility] Glucose 131(H) 70 - 115 mg/dL 03/07/2022 5:42 AM [facility] Calcium 8.3(L) 8.4 - 10.2 mg/dL 03/07/2022 5:42 AM [facility] Anion Gap 15 8 - 18 03/07/2022 5:42 AM [facility] BUN/Creatinine Ratio 14 7 - 23 03/07/2022 5:42 AM [facility] Osmolality Calculated 301(H) 270 - 300 mOsm/kg 03/07/2022 5:42 AM [facility] eGFR by CKD-EPI >90 >=90 mL/min/1.7 3 m2 03/07/2022 5:42 AM [facility] Blood BLOOD SPECIMEN / Unknown Venipuncture / Unknown 03/07/2022 5:08 AM T 03/07/2022 5:14 AM [facility] Feroz Salazar MD LAB - CHEMISTRY ORD ERABLES [facility] [address] [place] [address], [facility] [phone] from Last 3 Months or Most Recently Relevant to Health Maintenance Care Teams Personal Injury Paralegal Relationship Specialty Start Date End Date Arianne Alarcon APRN-PERSONNEL RECORDS CLERK [address] [place] [address] PCP - General 10/08/19
--- OUTSIDE RECORDS SUMMARY | 2024-08-23 18:11 | XMS_ITS | Encounter Summary ---
Author Organization [facility] Address [address] [place] [address] Phone Care Team Providers Care Database Coordinator Name Role Phone Jack Dukes MD Unavailable [phone] Arianne Alarcon APRN, COMMUNICATIONS ENGINEER Primary Care Provider [phone] Lito Chatterjee MD Unavailable [phone] Gustabo Falk MD Unavailable [phone] Amrit Goddard MD Unavailable Phan Grant MD Unavailable [phone] Reason for Visit * Reason Comments Medication Refill Encounter Details Date Type Department Care Team (Late st Contact Info) Description 02/17/2023 Refill [facility] - Neurology [facility] [address] [place] [address] Jack Dukes MD [address] [place] [address] Medication Refill Social History Tobacco Use Types Packs/Day Years Used Date Smoking Tobacco: Never Smokeless Tobacco: Never Alcohol Use Standard Drinks/Week Comments No 0 (1 standard drink = 0.6 oz pur e alcohol) Comments No Sex and Gender Information Value Date Recorded Sex Assigned at Not on file Legal Sex Female 2:52 AM CIGARETTE PACKAGE EXAMINER Gender Identity Not on file Sexual Orientation Not on file 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 Date Job 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 Requested Prescriptions Pending Prescriptions Disp Refills gabapentin (NEURONTIN) 300 MG Capsule [Pharmacy Med Name: GABAPENTIN 300MG CAPSULE] 90 Capsule 3 Sig: TAKE ONE CAPSULE BY MOUTH THREE TIMES a DAY Not Delegated - Anticonvulsants Excluding Benzodiazepines Protocol Failed - 02/17/2023 12:09 PM Failed - This refill cannot be delegated Passed - Visit with relevant provider in past 12 months or upcoming 90 days Recent Visits Date Type Provider Dept 08/01/22 Telemedicine Jack Dkues MD [facility] Neurology [facility] Showing recent visits within past 365 days and meeting all other requirements Future Appointments No visits were found meeting these conditions. Showing future appointments within next 90 days and meeting all other requirements documented in this encounter Plan of Treatment Upcoming Encounters Date Type Department Care Team (Late st Contact Info) Description 08/24/2024 2:45 PM CIGARETTE PACKAGE EXAMINER Telemedicine [facility] Neurology [facility] [address] [place] [address] Jack Dukes MD [address] [place] [address] 08/26/2024 1:20 PM CIGARETTE PACKAGE EXAMINER Office Visit [facility] - Cancer Center Oncology Services [address] [place] [address] Phan Grant MD [address] [place] [address] Discharge Disposition: Discharged to home or Selfcare documented as of this encounter Visit Diagnoses Diagnosis 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) documented in this encounter Care Teams Database Coordinator Relationship Specialty Start Date End Date Arianne Alarcon APRROMEL Whipple [address] [place] [address] PCP - General Family Medicine 08/29/16 Jack Dukes MD [address] [place] [address] Consulting Physician Neurology 08/21/16 Lito Chatterjee MD [address] [place] [address] Consulting Physician General Surgery 04/27/19 Gustabo Falk MD [address] [place] [address] Consulting Physician Radiation Oncology 04/27/19 Amrit Goddard MD [address]2 [facility] [address] [address] Consulting Physician General Surgery 06/08/19 Phan Grant MD [address] [place] [address] Consulting Physician Medical Oncology 02/16/20 documented as of this encounter
--- OUTSIDE RECORDS SUMMARY | 2024-08-23 18:11 | XMS_ITS | Clinical Summary ---
Author Organization [facility] Address [address] [place] [address] Care Team Providers Care Clamp Remover Name Role Phone Alarcon, Arianne FLORES Primary Care Provider [phone] Source Comments [facility],non-owned Affiliates and Associated Physician Practices is amultiple site organization consisting of ambulatory clinics and hospital sitesin [place], [place], [place] and [place]. This disclosure is being madepursuant to the Care Everywhere program and may not contain all information available regarding this patient. Last updated 18.[facility] Allergies Active Allergy Reactions Criticality Noted [...] 03/12/2022 2:43 PM CDT Plan of Treatment Health Maintenance Due Date Last Done Comments COLOGUARD (AGES 45-75) - COLON CA SCREENING 1976 COLON MONITORING 1976 COLONOSCOPY - COLON CA SCREENING 1976 CT COLONOGRAPHY - COLON CA SCREENING 1976 Colorectal Cancer Screening 1976 FIT - COLON CA SCREENING 1976 FLEX SIG - COLON CA SCREENING 1976 LIPID TESTING 1976 MAMMOGRAM 1976 PAP SMEAR 1976 HIV SCREENING 1991 HEPATITIS C SCREENING 07/29/1994 HEPATITIS B VACCINE (1 of 3 - 19+ 3-dose series) 1995 COVID-19 VACCINE (1 - 2023- season) 2024 INFLUENZA VACCINE (#1) 2024 , 04/07/2020, 05/25/2019, Additional history exists DEPRESSION SCREENING 07/07/2024 SCREENING FOR DIABETES 03/07/2025 03/07/2022 ZOSTER VACCINE (1 of 2) 2026 DTAP/TDAP/TD VACCINES (2 - Td or Tdap) 03/07/2032 03/07/2022 HIB VACCINE Aged Out No longer eligi ble based on patient's age to complete this topic HPV VACCINE Aged Out No longer eligi ble based on patient's age to complete this topic MENINGOCOCCAL (Group B) VACCINE Aged Out No longer eligible based on patient's age to complete this topic MENINGOCOCCAL VACCINE Aged Out No lukasz claribel eligible based on patient's age to complete this topic PNEUMOCOCCAL VACCINE Aged Out No long er eligible based on patient's age to complete this topic Procedures Procedure Name Priority Date/Time Associated Diagnosis Comments BASIC METABOLIC PANEL (CALCIUM TOTAL) STAT 03/07/2022 5:08 AM CDT from Last 3 Months or Most Recently Relevant to Health Maintenance Results * (ABNORMAL) BASIC METABOLIC PANEL (CALCIUM TOTAL) (03/07/2022 5:08 AM CDT) BUN 10 7 - 26 mg/dL 03/07/2022 5:42 AM [facility] Creatinine 0.70 0.56 - 0.96 mg/dL 03/07/2022 5:42 AM [facility] Sodium 145 136 - 145 mmol/L 03/07/2022 5:42 AM [facility] Potassium 3.9 3.5 - 4.5 mmol/L 03/07/2022 5:42 AM [facility] Chloride 112(H) 98 - 107 mmol/L 03/07/2022 5:42 AM [facility] CO2 22 22 - 29 mmol/L 03/07/2022 5:42 AM [facility] Glucose 131(H) 70 - 115 mg/dL 03/07/2022 5:42 AM [facility] Calcium 8.3(L) 8.4 - 10.2 mg/dL 03/07/2022 5:42 AM [facility] Anion Gap 15 8 - 18 03/07/2022 5:42 AM [facility] BUN/Creatinine Ratio 14 7 - 23 03/07/2022 5:42 AM [facility] Osmolality Calculated 301(H) 270 - 300 mOsm/kg 03/07/2022 5:42 AM [facility] eGFR by CKD-EPI >90 >=90 mL/min/1.7 3 m2 03/07/2022 5:42 AM [facility] Blood BLOOD SPECIMEN / Unknown Venipuncture / Unknown 03/07/2022 5:08 AM CDT 03/07/2022 5:14 AM [facility] Feroz Salazar MD LAB - CHEMISTRY ORD ERABLES [facility] [address] [place] [address], [facility] [phone] from Last 3 Months or Most Recently Relevant to Health Maintenance Care Teams Clamp Remover Relationship Specialty Start Date End Date Arianne Alarcon APRN-ROMEL [address] [place] [address] PCP - General 10/08/19
--- OUTSIDE RECORDS SUMMARY | 2024-08-23 18:11 | XMS_ITS | Data Portability ---
Author Organization [facility] David LANDRUM Address [address] [place] [address] Care Team Providers Care Silverware Etcher Name Role Phone TOWNSENDJARETH Yard Caller ARIANNE RIVER Primary Care Provider Unavailabl e Assessment Encounter Date Assessment Date Assessment LastModified by Organization Details LastModified Time 12/09/2023 12/09/2023 Silverer exam benign today, re-enforced need to avoid soap in vagina, especially after menopause will discuss with oncologist her ability to use vaginal estrogen in the future. visit to plastics for leaking implant tomorrow Not available 12/09/2023 12:15:09 Plan of Treatment Reminders Order Date Submit Date Provider Last Modified By Organization Details Last Modified Time Details Appointments ANY 15 2024 07:30A M Arianne River VEGETABLE CUTTER, CHROME TANNING DRUM OPERATOR-C Not available Not available Not available Lab CMP, serum or plasma 2023 024 [facility], [address] [facility], [place], [address], 04/21/2024 10:37:56 amylase + lipase, serum 2023 024 [facility], [address] [facility], [place], [address], 04/21/2024 10:37:57 hepatit is panel (A+B+C) , acute, serum 2023 024 [facility], [address] [facility], [place], [address], 04/21/2024 10:37:52 lipid panel, serum 2023 024 [facility], [address] [facility], [place], [address], 04/21/2024 10:37:54 cytolog y report, thin prep, smear or scrapin g, cervica l or vaginal 2023 024 [facility], [address] [facility], [place], [address], 12/12/2023 16:27:02 Referral None recorde d. Procedures None recorde d. Surgeries None recorde d. Imaging US, doppler , venous 2023 024 [facility] ([facility]) Scheduling, [address] [place], [address], 04/14/2024 14:33:32 XR, foot, 3 or more view 2023 024 [facility] ([facility]) Scheduling, [address] [place], [address], 08/01/2023 18:41:50 Medication Orders doxycyc line hyclate 100 mg tablet 2023 024 [facility] [place], [address], [place], [address], 10/28/2023 14:43:45 Patient TargetsNo targets recorded. Patient Instructions Encounter Date Encounter Id Patient Instructions Last Modified By Organization Details Last Modified Time 07/30/2023 [id number] tinea versicolor : care instructions Not available 07/30/2023 17:42:28 leg and ankle ed mitch: care instructions Not available 07/30/2023 17:41:30 learning about m ood disorders Not available 07/30/2023 18:14:57 Rest To rest the foot. Ice Apply a cold gel pack, bag of ice, or bag of frozen vegetables on your foot every 1 to 2 hours, for 15 minutes each time. Put a thin towel between the ice (or other cold object) and your skin. Use the ice (or other cold object) for at least 6 hours after your injury. Some people find it helpful to ice longer, even up to 2 days after their injury. Compression Compression basically means pressure. You want to have your foot under slight pressure by having it wrapped in an elastic compression bandage. It's important that you do not use too much pressure and cut off the blood flow to your foot. Elevation Elevation means you should keep your foot raised up above the level of your heart. To do this, you can put your foot on some pillows or blankets while you are lying down, or on a table or chair while you are sitting. Not available 07/30/2023 18:13:45 Plan pending imaging results. f/u as needed DWP barriers to care: none Not available 07/30/2023 18:13:52 10/28/2023 [id number] When You Want to Lose Weight: Care Instructions Not available 10/28/2023 15:11:08 tinea versicolor : care instructions Not available 10/28/2023 15:11:08 leg and ankle ed mitch: care instructions Not available 10/28/2023 15:11:08 insomnia: care instructions Not available 10/28/2023 15:11:08 gastroesophageal reflux disease (GERD): care instructions Not available 10/28/2023 15:11:08 learning about m ood disorders Not available 10/28/2023 15:11:08 Increase intake of fresh fruits, and vegetables. Avoid packaged foods and fast foods. Follow a low salt diet, drink at least 8-10 8oz glasses of water a day, exercise most days of the week. Take all medications as prescribed. Keep appointments with PCP and all specialists. Not available 10/28/2023 15:14:15 f/u 3 months DWP barriers to care: none Not available 10/28/2023 15:14:09 12/09/2023 [id number] A healthy lifest yle: care instructions Not available 12/09/2023 12:15:10 01/13/2024 [id number] When You Want to Lose Weight: Care Instructions Not available 01/13/2024 17:20:37 insomnia: care instructions Not available 01/13/2024 17:20:37 gastroesophageal reflux disease (GERD): care instructions Not available 01/13/2024 17:20:37 learning about m ood disorders Not available 01/13/2024 17:20:37 Increase intake of fresh fruits, and vegetables. Avoid packaged foods and fast foods. Follow a low salt diet, drink at least 8-10 8oz glasses of water a day, exercise most days of the week. Take all medications as prescribed. Keep appointments with PCP and all specialists. Not available 01/13/2024 16:57:40 f/u 3 months DWP barriers to care: none Not available 01/13/2024 16:57:38 04/14/2024 [id number] A healthy lifest yle: care instructions Not available 04/14/2024 14:57:08 reduce fatty shanon ds, avoid tylenol, alcohol Not available 04/14/2024 14:56:28 dwp labs needed, plan pending results Not available 04/14/2024 14:56:08 Reason for Referral None Reported. Results Created Date Observation Date Name Description Value Unit Range Abnormal Flag Note LastModifiedBy Organization Detail LastModifiedTime 12/09/19 24 12/12/2023 IGP, RFX APTIM A HPV ASCU diagnosis: COMMEN T NEGAT EMANUEL FOR INTRA EPITH ELIAL LESIO N OR KEEGAN REDDING . CELLU LAR COPPOLA ES ASSOC IATED WITH INFLA MMATI ON ARE PRESE NT. Not Available [facility] ([facility]) [address] [facility], [place], [address], 12/12/2023 16:27:02 12/09/19 24 12/12/2023 IGP, RFX APTIM A HPV ASCU specimen adequacy: COMMEN T Satis facto ry for evalu ation . Endoc ervic al and/o r squam ous metap lasti c cells (endo cervi olamide compo nent) are prese nt. Not Available [facility] ([facility]) [address] [place], [address], 12/12/2023 16:27:02 12/09/19 24 12/12/2023 IGP, RFX APTIM A HPV ASCU clinician provided ICD10: JELLY Tejeda Z01.4 19 Not Available [facility] ([facility]) [address] [place], [address], 12/12/2023 16:27:02 12/09/19 24 12/12/2023 IGP, RFX APTIM A HPV ASCU performed by: JELLY Maya ams, Cytoileana tejeda (ASCP ) Not Available [facility] ([facility]) [address] [place], [address], 12/12/2023 16:27:02 12/09/19 24 12/12/2023 IGP, RFX APTIM A HPV ASCU . . Not Available [facility] ([facility]) [address] [place], [address], 12/12/2023 16:27:02 12/09/19 24 12/12/2023 IGP, RFX APTIM A HPV ASCU note: JELLY Tejeda The Pap smear is a scree [place] test desjustin sarabia to aid in the detec tion of manny ligna nt and malig nant condi tions of the uteri ne cervi x. It is not a diagn ostic proce dure and shoul d not be used as the sole means of detec ting cervi olamide cance r. Both false -posi tive and false -nega tive repor ts do occur . Not Available [facility] ([facility]) [address] [place], [address], 12/12/2023 16:27:02 12/09/19 24 12/12/2023 IGP, RFX APTIM A HPV ASCU test methodology: COMMEN T This liqui d based ThinP rep(R ) pap test was cathy sarabia with the use of an image guide tammy sampson Not Available [facility] ([facility]) [address] [place], [address], 12/12/2023 16:27:02 12/09/19 24 12/12/2023 IGP, RFX APTIM A HPV ASCU . COMMEN T The HPV DNA refle x crite karla were not met with this speci men resul t there fore, no HPV testi ng was perfo rmed. Not Available [facility] ([facility]) [address] [place], [address], 12/12/2023 16:27:02 04/20/20 24 04/21/2024 ACUTE HEPAT ITIS hep A Ab, IgM NEGATI VE negati ve A negat emanuel anti- HAV IgM resul t sugge sts no recen t or curre nt HAV infec tion. Not Available [facility] ([facility]) [address] [place], [address], 04/21/2024 10:37:52 04/20/20 24 04/21/2024 ACUTE HEPAT ITIS HBsAg screen NEGATI VE negati ve Not Available [facility] ([facility]) [address] [place], [address], 04/21/2024 10:37:52 04/20/20 24 04/21/2024 ACUTE HEPAT ITIS hep B core Ab, IgM NEGATI VE negati ve Not Available [facility] ([facility]) [address] [place], [address], 04/21/2024 10:37:52 04/20/20 24 04/21/2024 ACUTE HEPAT ITIS HCV Ab NON REACTI VE nonrea ctive Not Available [facility] ([facility]) [address] [place], [address], 04/21/2024 10:37:52 04/20/2004/21/2024 INTER PRETA TION: interpretati on: Commen t Not infec geri with HCV unles s early or acute infec tion is suspe cted (whic h may be delay ed in an immun ocomp romis ed indiv idual ), or other evide nce exist s to indic ate HCV infec tion. Not Available [facility] ([facility]) [address] [facility], [place], [address], 04/21/2024 10:37:53 04/20/2004/21/2024 LIPID PANEL cholesterol, total 247 mg/dL 100-19 9 above high normal Not Available [facility] ([facility]) [address] [facility], [place], [address], 04/21/2024 10:37:54 04/20/2004/21/2024 LIPID PANEL triglyceride s 232 mg/dL 0-149 above high normal Not Available [facility] ([facility]) [address] [facility], [place], [address], 04/21/2024 10:37:54 04/20/2004/21/2024 LIPID PANEL HDL cholesterol 62 mg/dL >39 Not Available [facility]) [address] [facility], [place], [address], 04/21/2024 10:37:54 04/20/2004/21/2024 LIPID PANEL VLDL cholesterol olamide 42 mg/dL 5-40 above high normal Not Available [facility] ([facility]) [address] [facility], [place], [address], 04/21/2024 10:37:54 04/20/2004/21/2024 LIPID PANEL LDL chol calc ([facility]) 143 mg/dL 0-99 above high normal Not Available [facility] ([facility]) [address] [place], [address], 04/21/2024 10:37:54 04/20/20 24 04/21/2024 COMP. METAB OLIC PANEL (14) glucose 97 mg/dL 70-99 Not Available [facility] ([facility]) [address] [place], [address], 04/21/2024 10:37:56 04/20/20 24 04/21/2024 COMP. METAB OLIC PANEL (14) BUN 13 mg/dL 6-24 Not Available [facility] ([facility]) [address] [place], [address], 04/21/2024 10:37:56 04/20/2004/21/2024 COMP. METAB OLIC PANEL (14) creatinine 0.94 mg/dL 0.57-1 .00 Not Available [facility] ([facility]) [address] [place], [address], 04/21/2024 10:37:56 04/20/20 24 04/21/2024 COMP. METAB OLIC PANEL (14) eGFR 75 mL/mi n/1.7 3 >59 Not Available [facility] ([facility]) [address] [place], [address], 04/21/2024 10:37:56 04/20/20 24 04/21/2024 COMP. METAB OLIC PANEL (14) BUN/creatini ne ratio 14 9-23 Not Available [facility] ([facility]) [address] [place], [address], 04/21/2024 10:37:56 04/20/20 24 04/21/2024 COMP. METAB OLIC PANEL (14) sodium 139 mmol/ L 134-14 4 Not Available [facility] ([facility]) [address] [place], [address], 04/21/2024 10:37:56 04/20/20 24 04/21/2024 COMP. METAB OLIC PANEL (14) potassium 3.8 mmol/ L 3.5-5. 2 Not Available [facility] ([facility]) [address] [facility] [place], [address], 04/21/2024 10:37:56 04/20/20 24 04/21/2024 COMP. METAB OLIC PANEL (14) chloride 102 mmol/ L 96-106 Not Available [facility] ([facility]) [address] [facility], [place], [address], 04/21/2024 10:37:56 04/20/20 24 04/21/2024 COMP. METAB OLIC PANEL (14) carbon dioxide, total 21 mmol/ L 20-29 Not Available [facility] ([facility]) [address] [facility], [place], [address], 04/21/2024 10:37:56 04/20/20 24 04/21/2024 COMP. METAB OLIC PANEL (14) calcium 9.8 mg/dL 8.7-10 .2 Not Available [facility] ([facility]) [address] [facility] [place], [address], 04/21/2024 10:37:56 04/20/20 24 04/21/2024 COMP. METAB OLIC PANEL (14) protein, total 7.6 g/dL 6.0-8. 5 Not Available [facility] ([facility]) [address] [facility], [place], [address], 04/21/2024 10:37:56 04/20/20 24 04/21/2024 COMP. METAB OLIC PANEL (14) albumin 4.7 g/dL 3.9-4. 9 Not Available [facility] ([facility]) [address] [facility] [place], [address], 04/21/2024 10:37:56 04/20/20 24 04/21/2024 COMP. METAB OLIC PANEL (14) globulin, total 2.9 g/dL 1.5-4. 5 Not Available [facility] ([facility]) [address] [facility], [place], [address], 04/21/2024 10:37:56 04/20/2004/21/2024 COMP. METAB OLIC PANEL (14) bilirubin, total 0.3 mg/dL 0.0-1. 2 Not Available [facility] ([facility]) [address] [facility], [place], [address], 04/21/2024 10:37:56 04/20/20 24 04/21/2024 COMP. METAB OLIC PANEL (14) alkaline phosphatase 106 IU/L 44-121 Not Available [facility] ([facility]) [address] [facility], [place], [address], 04/21/2024 10:37:56 04/20/20 24 04/21/2024 COMP. METAB OLIC PANEL (14) AST (SGOT) 19 IU/L 0-40 Not Available [facility] ([facility]) [address] [facility], [place], [address], 04/21/2024 10:37:56 04/20/2004/21/2024 COMP. METAB OLIC PANEL (14) ALT (SGPT) 23 IU/L 0-32 Not Available [facility] ([facility]) [address] [facility], [place], [address], 04/21/2024 10:37:56 04/20/2004/21/2024 TRICE+L IPASE amylase 38 U/L 31-110 Not Available [facility] ([facility]) [address] [facility], [place], [address], 04/21/2024 10:37:57 04/20/2004/21/2024 TRICE+L IPASE lipase 23 U/L 14-72 Not Available [facility] ([facility]) [address] [facility], [place], [address], 04/21/2024 10:37:57 08/01/19 24 07/31/2023 XR, foot, 3 or more view No observ ation record ed. jschulterma [facility] [address] [facility] [place], [address], 08/11/2023 10:25:48 Result Notes None recorded. Problems Name Problem SNOMED Code Status Onset Date Resolution Date Notes Provider Name and Address Organization Details Recorded Time Invasive carcinom a of breast 116230852 Active 2018 Arianne River APN CHROME TANNING DRUM OPERATOR-C Attn: Elainein g,[address] [facility] [address], [place], [address], [facility] 1 11:43:49 COVID-19 930277476 Active 2020 Arianne River APN CHROME TANNING DRUM OPERATOR-C Attn: Antoni g,[address] [facility] [address] [address], [place], [address], [facility] 1 11:43:49 Allergic conditio n 780488222 Active 2010 Arianne River APN, CHROME TANNING DRUM OPERATOR-C Attn: Antoni g,[address] [facility] 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 [address] [address], [place], [address], [facility] 1 11:11:12 History of malignan t neoplasm of breast 192055628 Active 2019 Arianne River APN, CHROME TANNING DRUM OPERATOR-C Attn: Antoni g,[address] [facility] [address], [place], [address], [place] [facility] 1 11:43:49 Estrogen receptor negative neoplasm 273083036 Active 2018 Arianne River APN, CHROME TANNING DRUM OPERATOR-C Attn: Antoni g,[address] [place], [address], [place] [facility] 1 11:11:12 Peripher al neuropat hy due to and followin g antineop lastic therapy 060899674 Active 2019 Arianne River VEGETABLE CUTTER, CHROME TANNING DRUM OPERATOR-C Attn: Accountwillis g,[address], [place], [address], [place] [facility] 1 11:11:12 Primary malignan t neoplasm of breast 519374650 Active 2019 Arianne River VEGETABLE CUTTER, CHROME TANNING DRUM OPERATOR-C Attn: Accountwillis g,[address], [place], [address], [place] [facility] 1 11:11:12 History of major vascular surgery 853694200 Active 2018 Arianne River VEGETABLE CUTTER, CHROME TANNING DRUM OPERATOR-C Attn: Antoni mayers,[address] [facility], [place], [address], [place] [facility] 1 11:43:49 Allergic rhinitis 88436113 Active 2008 Arianne River VEGETABLE CUTTER, CHROME TANNING DRUM OPERATOR-C Attn: Antoni g,[address] [facility], [place], [address], [place] [facility] 1 11:43:49 Sensory neuropat hy 50194527 Active 2019 Arianne River VEGETABLE CUTTER, CHROME TANNING DRUM OPERATOR-C Attn: Antoni g,[address] [facility], [place], [address], [place] [facility] 1 11:43:49 Environm ental allergy 050159829 Active 2021 Arianne River VEGETABLE CUTTER, CHROME TANNING DRUM OPERATOR-C Attn: Antoni g,[address] [facility], [place], [address], [place] [facility] 2 12:52:33 Overweig ht 178214934 Active 2021 Arianne River VEGETABLE CUTTER, CHROME TANNING DRUM OPERATOR-C Attn: Antoni g,[address] [facility], [place], [address], [place] [facility] 2 14:52:06 Gastroes ophageal reflux disease without esophagi tis 503459747 Active 2022 Arianne River APN, FNP-C Attn: Antoni talib,[address] [facility], [place], [place], [address] [place] [address] 2, [facility] 3 10:00:14 Pityrias is versicol or 90409026 Active 2022 Arianne River APN, FNP-C Attn: Antoni talib,[address] [facility], [place], [place], [address] [place] [address] 2, [facility] 3 23:45:13 Allergy Active Arianne River APN, FNP-C Attn: Antoni mayers,[address] [facility], [place], [place], [address] [place] [address] 2, [facility] 1 11:43:49 Depressi ve disorder 28047103 Active 2008 Arianne River APN, FNP-C Attn: Antoni mayers,[address] [facility], [place], [place], [address] [place] [address] 2, [facility] 1 11:43:49 Anxiety 32807293 Active 2019 Arianne River APN, FNP-C Attn: Antoni talib,[address] [place] [address], [place], [place], [address] [place] [address] 2, [facility] 1 11:43:49 Seizure 79373589 Active 2009 Arianne River APN, FNP-C Attn: Antoni mayers,[address] [place] [address], [place], [place], [address] [place] [address] 2, [place] [facility] 1 11:43:49 Chronic low back pain 828877176 Active Arianne River APN, FNP-C Attn: Antoni mayers,[address] [facility], [place], [place], [address] [place] [address] 2, [facility] 1 11:43:49 Migraine 54470569 Active Arianne River APN, FNP-C Attn: Antoni mayers,[address] [place] [address] [place], [address] [place] [address] 2, [place] [facility] 1 11:43:49 Insomnia 854089569 Active Arianne River APN, FNP-C Attn: Antoni talib,[address] [facility], [place], [place], [address] [place] [address] 2, [facility] 1 11:43:49 Anemia 362960666 Active Arianne River APN, FNP-C Attn: Antoni mayers,[address] [facility], [place], [place], [address] [place] [address] 2, [facility] 1 11:43:49 Swollen legs Completed 02/06/2021 Arianne River APN, FNP-C Attn: Antoni talib,[address] [facility], [place], [place], [address] [place] [address] 2, [facility] 1 11:09:31 Chronic depressi on Active Arianne River APN, FNP-C Attn: Antoni mayers,[address] [facility], [place], [place], [address] [place] [address] 2, [facility] 1 11:43:48 Kidney stone 53738811 Leroy River APN, FNP-C Attn: Antoni mayers,[address] [facility], [place], [place], [address] [place] [address] 2, [facility] 1 11:43:49 Hyperkal emia 60240772 Completed 06/25/2016 Removal Reason: resolved Hanna Jones PA-C Attn: Antoni mayers,[address] [facility], [place], [place], [address] [place] [address] 2, [place] [facility] 6 09:15:45 Acute sinusiti s 13824745 Completed 06/25/2016 Removal Reason: resolved Hanna Jones PA-C Attn: Antoni myaers,[address] [facility], [place], [place], [address] [place] [address] 2, [facility] 6 09:15:49 Amenorrh ea 74227125 Active Arianne River APN CHROME TANNING DRUM OPERATOR-C Attn: Antoni mayers,[address] [facility], [place], [address], [facility] - SI 11:43:49 Acute bronchit is 61129790 Completed 06/25/2016 Removal Reason: resolved Hanna Jones PA-C Attn: Antoni mayers,[address] [facility], [place], [address], [facility] 6 09:15:11 Pregnanc y 90844695 Completed 201602/21/2017 Rhea Isringlevyu sen null, [place] - [facility] 7 14:27:38 Problem Notes None recorded. Procedures Surgical History Date Name Laterality Status Provider Name and Address Organization Details Recorded Time 12/09/19 24 Date of Last Pap Smear completed Etelvina Obregon RN [facility] 12/12/2023 16:34:52 04/06/20 20 Tiss xpndr plmt brst rcnstj completed Patria Perdomo MA [facility] 07/31/2020 15:42:51 03/15/20 19 Most Recent Mammogram completed Daniela Steinberg MA [facility] 03/26/2019 08:31:16 04/24/20 17 Tubal Ligation completed Etelvina Obregon RN [facility] 04/29/2017 14:49:11 03/09/20 09 Dilation and Curettage completed Etelvina Obregon RN [facility] 08/31/2014 17:03:00 07/07/18 94 Appendectomy completed Etelvina Obregon RN [facility] 08/31/2014 17:03:00 Other completed Harika Still MA [facility] 06/20/2014 16:13:59 lumpectomy of right breast completed NICK Fernandez [facility] 05/26/2019 11:02:28 Laparoscopy completed Etelvina Obregon RN [facility] 08/31/2014 17:03:00 Imaging Results Imaging Date Name Status LastModified by [facility] Details LastModified Time 07/31/2023 XR, foot, 3 or more view [facility] [address] [place], [address], 08/11/2023 10:25:48 Procedure Notes None recorded. Medical Equipment None Reported. Allergies Allergen ID Allergen Name Allergen Category Reaction Reaction Severity Criticality Documentation Date Start Date Code Code System Note Provider Name and Address Organization Details Recorded Time 10591 Ponstel medicatio n Not available Not available Not available 08/31/2014 91366 4 RxNorm Not Available Not Available Not Available 9055 Product containin g penicilli n (product) medicatio n rash moderate Not available 06/20/2014 25505 8001 SNOMED Not Available Not Available Not Available 9056 Substance with sulfonami de structure and antibacte rial mechanism of action (substanc e) medicatio n rash moderate Not available 06/20/2014 45397 8003 SNOMED Not Available Not Available Not Available Medications Name Sig Start Date Stop Date Status Note LastModified by Organization Details LastModified Time celecoxib 200 mg capsule 07/31 completed not taking Not Available Not Available Not Available Santyl 250 unit/gram topical ointment active Not Available Not Available Not Available cyclobenz aprine 10 mg tablet TAKE 1 TABLET BY MOUTH THREE TIMES DAILY NEEDED FOR MUSCLE SPASM 07/30 completed Not Available Not Available Not Available lamotrigi ne 150 mg tablet Take 1 tablet twice a day by oral route for 30 days. 08/13 completed Not Available Not Available Not Available bupropion HCl SR 150 mg tablet,12 hr sustained -release TAKE 1 TABLET EVERY DAY BY ORAL ROUTE. active Not Available Not Available No t Available nystatin 100,000 unit/mL oral suspensio n 07/31 completed Not Available Not Available Not Available gabapenti n 600 mg tablet 05/26 completed Not Available Not Available Not Available doxycycli ne hyclate 100 mg capsule TAKE ONE CAPSULE BY MOUTH TWO TIMES A DAY FOR 5 DAYS 06/13 completed Not Available Not Available Not Available lamotrigi ne 200 mg tablet TAKE 1 TAB BY MOUTH 2 TIMES DAILY. active Not Available Not Available No t Available clindamyc in HCl 300 mg capsule TAKE 1 CAPSULE BY MOUTH EVERY 6 HOURS active Not Available Not Available No t Available diphenhyd ramine 50 mg capsule Take 50 mg by oral route. 02/20 completed Not Available Not Available Not Available cetirizin e 10 mg tablet Take 1 tablet every day by oral route. active Not Available Not Available No t Available Stool Softener 100 mg capsule 07/31 completed Not Available Not Available Not Available azithromy tico 250 mg tablet TAKE 2 TABLETS (500 MG) BY ORAL ROUTE ONCE DAILY FOR 1 DAY THEN 1 TABLET (250 MG) BY ORAL ROUTE ONCE DAILY FOR 4 DAYS 07/30 completed Not Available Not Available Not Available ibuprofen 800 mg tablet 08/13 completed Not Available Not Available Not Available Lidocaine Viscous 2 % mucosal solution 07/08 completed Not Available Not Available Not Available fluconazo le 150 mg tablet Take 1 tablet every day by oral route for 1 day. active Not Available Not Available No t Available hydrocodo ne 5 mg-acetam inophen 325 mg tablet TAKE 1 TABLET BY MOUTH EVERY 6 HOURS NEEDED FOR PAIN 06/16 completed Not Available Not Available Not Available ondansetr on HCl 8 mg tablet 07/31 completed Not Available Not Available Not Available meloxicam 15 mg tablet 08/13 completed Not Available Not Available Not Available prednison e 20 mg tablet 06/13 completed Not Available Not Available Not Available clindamyc in HCl 150 mg capsule 06/25 completed Not Available Not Available Not Available diphenoxy late-atro pine 2.5 mg-0.025 mg tablet 06/13 completed Not Available Not Available Not Available metronida zole 500 mg tablet Take 1 tablet twice a day by oral route for 7 days. 2024 active Not Available Not Available Not Avai lable prochlorp erazine maleate 10 mg tablet 07/31 completed prn Not Available Not Available Not Available acyclovir 400 mg tablet TAKE 1 TABLET EVERY 8 HOURS BY ORAL ROUTE FOR 5 DAYS. 06/13 completed Not Available Not Available Not Available valacyclo vir 500 mg tablet TAKE 1 TABLET BY MOUTH TWICE DAILY FOR 7 DAYS active Not Available Not Available No t Available aspirin 81 mg tablet,de layed release 07/31 completed not taking Not Available Not Available Not Available acetamino phen 500 mg tablet 500 mg by oral route. 02/12 completed Not Available Not Available Not Available lidocaine -prilocai ne 2.5 %-2.5 % topical cream 07/31 completed Not Available Not Available Not Available ketorolac 10 mg tablet 07/08 completed Not Available Not Available Not Available Vitamin tablet Take 1 tablet every day by oral route. 11/17 completed Not Available Not Available Not Available meloxicam 7.5 mg tablet 08/13 completed Not Available Not Available Not Available Tessalon Perles 100 mg capsule Take 1 capsule 3 times a day by oral route as needed. 08/13 completed Not Available Not Available Not Available lorazepam 0.5 mg tablet 0.5 mg by oral route. 03/16 completed Not Available Not Available Not Available trazodone 100 mg tablet 11/17 completed Not Available Not Available Not Available diphenhyd ramine 25 mg capsule TAKE ONE CAPSULE BY MOUTH THREE TIMES A DAY NEEDED FOR ALLERGIC REACTION 06/27 completed Not Available Not Available Not Available lidocaine 5 % topical patch 06/13 completed Not Available Not Available Not Available gabapenti n 300 mg capsule TAKE ONE CAPSULE BY MOUTH THREE TIMES A DAY active Not Available Not Available No t Available omeprazol e 20 mg capsule,d elayed release TAKE 1 CAPSULE EVERY DAY BY ORAL ROUTE. active Not Available Not Available No t Available zolpidem 5 mg tablet TAKE 1 TABLET BY MOUTH AT BEDTIME. 04/09 completed Not Available Not Available Not Available ibuprofen 600 mg tablet 600 mg by oral route. 03/16 completed Not Available Not Available Not Available zolpidem 10 mg tablet TAKE ONE (1) TABLET EVERY DAY BY MOUTH 2024 active will need to see pt prior to any refills due to alcohol use Not Available Not Available Not Available methylpre dnisolone 4 mg tablets in a dose pack TAKE TABLETS BY MOUTH BY DIRECTIO NS ON CARD IN BOX (TAKE WITH FOOD) 06/27 completed Not Available Not Available Not Available celecoxib 100 mg capsule 07/31 completed Not Available Not Available Not Available Kayexalat e oral powder Take 15 grams po bid 06/25 completed Not Available Not Available Not Available ondansetr on 4 mg disintegr ating tablet 10/27 completed Not Available Not Available Not Available cefdinir 300 mg capsule Take 1 capsule every 12 hours by oral route for 7 days. 02/20 completed Not Available Not Available Not Available fluticaso ne propionat e 50 mcg/actua tion nasal spray,pratima [place] 1 spray every day by intranas al route. active Not Available Not Available No t Available doxycycli ne hyclate 100 mg tablet Take 1 tablet twice a day by oral route for 14 days. 10/27 completed Not Available Not Available Not Available lamotrigi ne 100 mg tablet Take 100 mg twice a day by oral route. 03/19 completed Not Available Not Available Not Available oxycodone 5 mg tablet TAKE ONE TABLET BY MOUTH EVERY 6 HOURS NEEDED FOR PAIN 06/13 completed Not Available Not Available Not Available escitalop loly 20 mg tablet TAKE ONE TABLET BY MOUTH EVERY DAY 2023 active Not Available Not Available Not Avai lable cyclobenz aprine 5 mg tablet 06/13 completed Not Available Not Available Not Available nitrofura ntoin monohydra te/macroc rystals 100 mg capsule Take 1 capsule every 12 hours by oral route for 7 days. 04/14 completed Not Available Not Available Not Available pregabali n 75 mg capsule 07/31 completed not taking Not Available Not Available Not Available Vivitrol 380 mg intramusc ular suspensio n,extende d release as directed 08/13 completed Not Available Not Available Not Available Balziva (28) 0.4 mg-35 mcg tablet TAKE ONE TABLET BY MOUTH EVERY DAY 06/25 completed Not Available Not Available Not Available RhoGAM Ultra-Nicko tered PLUS 1,500 unit (300 mcg) intramusc ular syringe Inject 1 syringe by intramus cular route. 11/17 completed Not Available Not Available Not Available Kionex (with sorbitol) 15 gram-19.3 gram/60 mL oral suspensio n 08/13 completed Not Available Not Available Not Available Vimpat 200 mg tablet active Not Available Not Available Not Available lacosamid e 100 mg tablet 100 mg twice a day by oral route. active Not Available Not Available No t Available Suboxone 8 mg-2 mg sublingua l film 08/13 completed Not Available Not Available Not Available oxycodone 5 mg tablet,or al ONLY (not feeding tubes) Take 5 mg by oral route. 03/20 completed Not Available Not Available Not Available Stimulant Laxative Plus 8.6 mg-50 mg tablet 07/31 completed Not Available Not Available Not Available 19 (with docusate) 29 mg iron-1 mg-25 mg tablet 1 tab daily 11/17 completed Not Available Not Available Not Available Fluzone Quad (PF) 60 mcg (15 mcg x 4)/0.5 mL IM syringe 05/26 completed Not Available Not Available Not Available Vitals Date Recorded Body height Body mass index (BMI) Body weight Oxygen saturation Oxygen saturation in Arterial blood by Pulse oximetry Heart rate Respiratory rate Body temperature Systolic blood pressure Diastolic blood pressure Provider Name and Address Organization Details Last Updated DateTime 166.37 cm 28.2 kg/m2 99572.5 3 g 94 % 94 % 113 /min 16 /min 97.5 [degF] 106 mm[Hg] 73 mm[Hg] Patria Perdomo MA [facility] 17:29:39 Date Recorded Body height Body mass index (BMI) Body weight Oxygen saturation Oxygen saturation in Arterial blood by Pulse oximetry Heart rate Respiratory rate Body temperature Systolic blood pressure Diastolic blood pressure Systolic blood pressure Diastolic blood pressure Provider Name and Address Organization Details Last Updated DateTime 166.37 cm 26.9 kg/m2 90634.1 5 g 98 % 98 % 113 /min 16 /min 98.5 [degF] 122 mm[Hg] 92 mm[Hg] 126 mm[Hg] 88 mm[Hg] NICK Quintero [facility] 4 14:57:09 Date Recorded Heart rate Provider Name an d Address Organization Details Last Updated DateTime 10/28/2023 92 /min TRISTEN Benitez, CHROME TANNING DRUM OPERATORSwapnilC Attn: Accounting [facility], [place], [address], [facility] 10/28/2023 15:15:10 Date Recorded Body height Body mass index (BMI) Body weight Systolic blood pressure Diastolic blood pressure Provider Name and Address Organization Details Last Updated DateTime 12/09/2023 166.37 cm 26.6 kg/m2 42582.4 g 117 mm[Hg] 84 mm[Hg] Leslie Meyer [facility] 4 11:32:08 Date Recorded Body height Body mass index (BMI) Body weight Oxygen saturation Oxygen saturation in Arterial blood by Pulse oximetry Heart rate Respiratory rate Body temperature Systolic blood pressure Diastolic blood pressure Provider Name and Address Organization Details Last Updated DateTime 4 166.37 cm 27.9 kg/m2 78070.4 g 94 % 94 % 120 /min 16 /min 98.5 [degF] 130 mm[Hg] 82 mm[Hg] Sharifa Diaz MA [facility] 4 16:52:06 Date Recorded Oxygen saturation Oxygen saturation in Arterial blood by Pulse oximetry Heart rate Provider Name and Address Organization Details Last Updated DateTime 01/13/2024 97 % 97 % 96 /min Arianne River APN, CHROME TANNING DRUM OPERATOR-C Attn: Accounting, [address] [place], [address], [facility] 01/13/2024 17:05:03 Date Recorded Body height Body mass index (BMI) Body weight Oxygen saturation Oxygen saturation in Arterial blood by Pulse oximetry Body temperature Respiratory rate Heart rate Systolic blood pressure Diastolic blood pressure Provider Name and Address Organization Details Last Updated DateTime 4 166.37 cm 27.5 kg/m2 53034.5 2 g 95 % 95 % 97.5 [degF] 16 /min 96 /min 124 mm[Hg] 86 mm[Hg] Kelly Ewa [facility] 4 14:40:33 Social History Question Answer Notes LastModified by Organizat ion Details LastModified Time Tobacco Smoking Status Never Smoker BE [place], [place] - [place] 06/20/2014 16:16:27 Do You Have An Advance Directive? No Information not available 11/17/2018 What Is Your Level Of Alcohol Consumption? None Information not available 10/28/2023 Are You Blind Or Do You Have Difficulty Seeing? No Information not available 02/06/2021 What Is Your Level Of Caffeine Consumption? None [email or web address] Information not available 02/20/2023 How Much Tobacco Do You Chew? None Information not available 11/17/2018 In The 14 Days Before Symptom Onset, Have You Had Close Contact With A Laboratory-confir med COVID-19 While That Case Was Ill? No Information not available 07/31/2020 In The 14 Days Before Symptom Onset, Have You Had Close Contact With A Person Who Is Under Investigation For COVID-19 While That Person Was Ill? No Information not available 07/31/2020 Have You Been To An Area Known To Be High Risk For COVID-19? No Information not available 07/31/2020 Are You Currently Employed? Yes Information not available 04/14/2024 Are You Deaf Or Do You Have Serious Difficulty Hearing? No Information not available 02/06/2021 What Type Of Diet Are You Following? REGULAR Information not available 07/31/2020 Which Illicit Or Recreational Drugs Have You Used? None Information not available 11/17/2018 Do You Or Have You Ever Used E-cigarettes Or Vape? Never Used Electronic Cigarettes Information not available 07/31/2020 Education 2 Year College Information not available 11/17/2018 What Is Your Occupation? [employer] Information not available 04/14/2024 Are There Any Guns Present In Your Home? No Information not available 11/17/2018 Marital Status Single [email or web address] Informat ion not available 09/02/2014 What Was The Date Of Your Most Recent Tobacco Screening? 01/13/2024 Information not available 01/13/2024 How Many Children Do You Have? 1 [email or web address] Information not available 07/27/2014 What Is Your Relationship Status? Single Information not available 02/06/2021 Do You Use Your Seat Belt Or Car Seat Routinely? Yes Information not available 02/06/2021 Seat Belts Used Routinely Yes Information not available 11/17/2018 Smoke Alarm In Home Yes Information not available 11/17/2018 Do You Have Smoke And Carbon Monoxide Detectors In Your Home? Yes Information not available 02/06/2021 Are You Passively Exposed To Smoke? No Information no t available 02/06/2021 Do You Or Have You Ever Used Smokeless Tobacco? Never Used Smokeless Tobacco Information not available 07/31/2020 How Much Tobacco Do You Smoke? No [email or web address] Information not available 06/20/2014 General Stress Level Medium [email or web address] Information not available 05/26/2019 Do You Feel Stressed (tense, Restless, Nervous, Or Anxious, Or Unable To Sleep At Night)? [id number] Information not available 04/14/2024 Do You Use Any Illicit Or Recreational Drugs? No Hx Meth, Opiates Information not available 03/20/2022 Do You Use Sunscreen Routinely? No Information not available 11/17/2018 Has Tobacco Cessation Counseling Been Provided? No [email or web address] Information not available 02/12/2021 Do You Or Have You Ever Used Any Other Forms Of Tobacco Or Nicotine? No Information not available 02/06/2021 Sex: Female Functional Status Question Answer Note LastModified by Organization D etails LastModified Time Are you able to care for yourself? Yes Information n ot available 02/06/2021 What is your exercise level? None Information not available 10/28/2023 Mental Status None recorded. Family History Relationship Description Onset Age of this Age Resolved Age Notes LastModified by Organization Details LastModified Time Mother Depressive disorder [email or web address] Not available 01/2015 14:18:35 Mother Diabetes mellitus [email or web address] Not available 01/2015 14:18:35 Mother Essential hypertension [email or web address] Not available 0 07/13/2014 14:18:35 Father Alcohol abuse [email or web address] Not available 01/2015 14:18:35 Sister Depressive disorder [email or web address] Not available 01/2015 14:18:35 Sister Disorder of thyroid gland [email or web address] Not available 01/2015 14:18:35 Sister Graves' disease [email or web address] Not available 11/14 12:34:59 Brother Alcohol abuse [email or web address] Not available 01/2015 14:18:35 Brother Crohn's disease [email or web address] Not available 11/14 12:34:39 Paternal Grandfather Malignant tumor of colon [email or web address] Not available 06/16 09:37:02 Paternal Grandmother Malignant tumor of ovary [email or web address] Not available 06/16 09:37:22 Maternal Grandfather Malignant tumor of colon [email or web address] Not available 06/16 09:37:37 Medical History Condition Response Seizures/Epilepsy Y Kidney Stones Y Breast Cancer Y Sleep Disorder Y Headaches Y Urinary Tract Infection Y Kidney or Bladder Problems Y Depression Y Allergies Y Gynecological History Statement/Question Response Abnormal Pap N Flow Moderate Date of LMP 04/22/2019 STIs/STDs Y Duration of Flow (days) 3-5 Most Recent Mammogram 03/15/2019 Current Control Method Tubal Ligat ion Sexually Active? Y Menses Monthly Y Date of Last Pap Smear 12/09/2023 LMP Approximate Desired Control Method Sterilizati on Obstetrics History GPAL:G 6 P 2 1 3 2 Type Value Multiple Births 0 Full Term 2 Induced 2 Spontaneous 1 Premature 1 Living 2 Ectopics 0 Total 6 Immunizations Vaccine Type Date Status Note Provider Nam e and Address Organization Details Recorded Time Influenza, split virus, quadrivalent, preservative 9 completed Not Available [facility] 02/20/2023 11:32:39 Td (adult), 2 Lf tetanus toxoid, preservative free, adsorbed 1 completed Arianne River APN, FNP-C Attn: Accounting,[address] [place], [address], [facility] 02/06/2021 11:10:09 Influenza, split virus, quadrivalent, PF 0 completed NICK Condon null, [place] - [facility] 03/18/2022 15:51:26 Td (adult), 2 Lf tetanus toxoid, preservative free, adsorbed 9 completed Arianne River APN, FNP-C Attn: Accounting[address] [place], [address], [facility] - [facility] 02/06/2021 11:10:09 Influenza, split virus, quadrivalent, PF 9 completed NICK Condon null, [place] 03/18/2022 15:51:26 Influenza, split virus, quadrivalent, PF 1 completed Leslie MeyerNICK null, [place] - [place] 03/18/2022 15:51:26 Tdap 2 completed Arianne River APN, CAROLINE Attn: Accounting[address] , [place], [address], [facility] - SI 10/28/2023 14:51:56 Influenza, split virus, trivalent, preservative 4 completed Leslie Meyer, RMMichael null, [place] - [place] 03/18/2022 15:51:26 Past Encounters Encounter ID Performer Location Encounter Start Date Encounter Closed Date Diagnosis/Indication Diagnosis SNOMED-CT Code Diagnosis ICD10 Code Diagnosis Note [id number] [facility] (Adult Med) [address] [place] [address] 06/20/2014 14:54:46 06/20/2014 16:44:53 Swollen legs [id number] Mild edema present.no erythema,n o tenderness ,Ramiro's sign negative. Check labs cbc,cmp. Chronic depression 674506395 Stable on Lexapro. Check labs CBC,C[place]. [id number] [facility] [address] [place] [address] 06/28/2014 14:45:40 06/28/2014 17:48:01 Acute sinusitis 13445343 Likely Viral. Afebrile.S aturating 98% on room air.Lungs clear.No exudates on the tonsils. Advise patient to use saline spray and steam inhalation . Continue otc Mucinex. Tessalon pearls 100 mg po tid. Call office if the symptoms not improving by next week. [id number] [facility] [address] [place] [address] 07/13/2014 14:02:08 07/13/2014 14:48:18 Acute bronchitis 68891223 Patient has cough for more than 2 weeks. Lungs clear and saturating 98% on room air. Z pack. Advised to take otc Mucinex. Follow up if no improvemen t of the cough. [id number] Carlton Nick ([place] 205) [address] [facility] [place] [address] 09/02/2014 11:55:39 09/02/2014 13:30:02 Gynecologic examination 00316814 High risk sexual behavior 717220222 [id number] MD Carlton Contreras ([place] [address]) [address] [facility] [address] [place] [address] 05/02/2016 16:13:51 05/03/2016 10:30:21 Amenorrhea 92891081 N91.2 [id number] Arianne River APN, CHROME TANNING DRUM OPERATOR-C [place] (Adult Med) [address] [facility] [place] [address] 08/13/2016 09:54:12 08/13/2016 12:28:34 Epilepsy 91327513 G40.909 Risk of medication explained to pt, pt agrees to cont med. Will fill until she is seen by neuro Adult heal th examination 985618557 Z00.00 65024009 Z33.1 Cont to f/u OB Depressive disorder 3548 9007 F32.89 Cont to f/u with psychiatry . [id number] Laura García, CHROME TANNING DRUM OPERATOR- [place] Nick ([place] [address]) [address] [facility] [address] [place] [address] 08/13/2016 11:17:58 08/14/2016 10:13:35 test positive 908348426 Z32.01 Advanced m aternal age 477584590 O09.521 Epilepsy 43534019 G40.90 9 Urinary tr act infectious disease 61834430 N39.0 [id number] MD Carlton Contreras ([place] [address]) [address] [facility] [place] [address] 08/27/2016 13:49:06 08/28/2016 09:08:23 Normal 71329497 Z34.81 [id number] MD Carlton Contreras ([place] [address]) [address] [facility] [place] [address] 09/12/2016 15:41:24 09/13/2016 09:27:40 Normal 54373281 Z34.81 [id number] MD Carlton Contreras ([place] [address]) [address] [facility] [place] [address] 10/10/2016 15:19:24 10/11/2016 09:15:06 Normal 74920527 Z34.81 [id number] MD Carlton Contreras ([place] [address]) [address] [facility] [address] 11/07/2016 11:05:01 11/07/2016 13:54:57 Normal [id number] Z34.81 [id number] MD Carlton Contreras ([place] [address]) [address] [facility] [place] [address] 12/05/2016 10:04:46 12/05/2016 11:39:56 RhD negative 597922201 Z01.83 Normal 2136793 2 Z34.81 Advanced m aternal age 065136281 O09.858 [id number] MD Carlton Contreras ([place] [address]) [address] [facility] [place] [address] 12/30/2016 13:55:41 12/30/2016 14:56:05 Normal 60005981 Z34.81 [id number] MD Carlton Contreras ([place] [address]) [address] [facility] [place] [address] 01/30/2017 16:35:04 01/31/2017 12:28:06 Normal [id number] Z34.81 [id number] MD Carlton Contreras ([place] [address]) [address] [facility] [place] [address] 02/14/2017 11:00:34 02/14/2017 11:53:15 Normal [id number] Z34.81 [id number] MD Carlton Contreras ([place] [address]) [address] [facility] [place] [address] 03/13/2017 14:26:10 03/13/2017 15:16:37 depression 90078874 O99.497 [id number] MD Carlton Contreras ([place] [address]) [address] [facility] [address] 04/03/2017 16:46:15 04/04/2017 15:16:06 care 061231242 Z39.2 [id number] Arianne River APN, FNP-C [place] (Adult Med) [address] [place] [address] 11/17/2018 11:16:55 11/18/2018 10:29:54 Chronic depression 233197489 F34.1 resume medication s, f/u if not improving; Seizure 81533074 R56.9 Has talked to neuro office and meds are refilled. Has appt in December. Adult heal th examination 569336155 Z00.01 Encouraged routine [employer], vision, dental exams, well balanced diet. Insomnia 676555273 G47.0 0 Has been on Ambien 5 mg for past 18 months; pt would like to cont.Rx pending UDS. Long-term drug therapy 072281997 Z79.899 [facility] policy on controlled substances , signed new contract Hyperlipidemia 99930401 E78.2 check lab, was high at last check [facility], [id number] Jareth Townsend MD [place] [address] OB [address] [facility] [address] [place] [address] 01/11/2019 14:38:50 01/12/2019 10:01:50 Gynecologic examination 92022041 Z01.037 [id number] Arianne River APN, FNP-C [place] (Adult Med) [address] [place] [address] 02/16/2019 11:03:14 02/17/2019 11:00:54 Chronic depression 339595903 F34.1 cont medication s: escitalopr am 20 mg qd Seizure 21645620 R56.9 Has talked to neuro office and meds are refilled. Had appt in December- Insomnia 004085499 G47.0 0 Has been on Ambien 5 mg for past 18 months; pt would like to cont.refil l of Rx pending UDS- increase zolpidem ER 6.25 pending drug screen Long-term drug therapy 177757805 Z79.899 [facility] policy on controlled substances , signed new contract Hyperlipidemia 19766454 E78.2 check lab, was high at [place] [facility], [id number] Arianne River APN, FNP-C [place] (Adult Med) [address] [place] [address] 05/26/2019 10:50:55 05/28/2019 09:16:05 Chronic depression 978580312 F34.1 cont medication s: escitalopr am 20 mg qd Seizure 42430398 R56.9 Has talked to neuro office and meds are refilled. Had appt in December- Insomnia 065185325 G47.0 0 may cont on Ambien ER 6.25, refill when due Hyperlipidemia 98681560 E78.2 check lab, was high at [place] [facility], Malignant tumor of breast 189450201 C50.011 Seeing oncology, currently undergoing chemo [id number] Arianne River APN, CHROME TANNING DRUM OPERATOR-C [facility] (Adult Med) [address] [facility] [place] [address] 07/08/2019 12:15:36 07/09/2019 08:55:57 Acute bilateral otitis media 335216631 H66.93 bilateral TM's with erythema and purulent middle ear fluid, start cefdinir as she has allergy to pcn and bactrim [id number] Arianne River APN, CHROME TANNING DRUM OPERATOR-C [facility] (Adult Med) [address] [place] [address] 07/31/2020 08:42:28 08/01/2020 10:35:42 Chronic depression 566655217 F34.1 cont medication s: escitalopr am 20 mg qd Seizure [id number] R56.9 Has talked to neuro office and meds are refilled. Jun 2020 via phone, no changes Insomnia G47.0 0 may cont on Ambien ER 6.25, refill when due Hyperlipidemia 00668658 E78.2 check lab, was high at [place] [facility], [id number] Arianne River APN, CHROME TANNING DRUM OPERATOR-C [facility] (Adult Med) [address] [facility] [place] [address] 02/06/2021 10:50:02 02/07/2021 07:41:50 Chronic depression 119722146 F34.1 cont medication s: escitalopr am 20 mg qd Insomnia G47.0 0 may cont on Ambien prn, still not falling asleep well, will increase back up to 10 mg Seizure 26787069 R56.9 Has talked to neuro and meds are refilled. no changes [id number] Jareth Townsend MD [place] 14 OB [address] [facility] [address] [place] [address] 02/12/2021 14:58:49 02/13/2021 08:38:24 Gynecologic examination 77175375 Z01.419 Personal h istory of primary malignant neoplasm of breast 452205289 Z85.3 [id number] Arianne River APN, [facility]VIND[facility] (Adult Med) [address] Davies [address] [place], [place] [address] [address] 06/13/2021 11:25:04 06/14/2021 11:39:48 Chronic depression [id number] F34.1 cont medication s: escitalopr am 20 mg qd Insomnia 860614418 G47.0 0 may cont on Ambien 10 mg Seizure 37625682 R56.9 no recent seizures, cont with neuro Idiopathic urticaria 422 60306 L50.1 cont steroids as rx'dmay benefit from allergy testing when no longer on antihistam ine/steroi ds [id number] Arianne River APN, [facility] ([facility]) [address] Davies [address] [facility] [place] [address] 06/27/2021 10:32:40 06/28/2021 08:20:32 Idiopathic urticaria 85245901 L50.1 cont steroids as rx'dmay benefit from allergy testing when no longer on antihistam ine/steroi ds Easy bruising 638040468 R58 dwp may be from steroid use, will still check labs Administra tion of influenza vaccine 90489905 Z23 Insomnia 704109870 G47.0 0 may cont on Ambien 10 mg [id number] Arianne River APN, [facility] ([facility]) [address] Davies [address] [place], [place] [address], [place] [address] 11/14/2021 12:29:22 11/15/2021 09:56:18 Chronic depression 796437043 F34.1 cont medication s: escitalopr am 20 mg qd Insomnia 782925715 G47.0 0 may cont on Ambien 10 mg Seizure 48840361 R56.9 no recent seizures, cont with neuro Environmental allergy 42 9607822 T78.49XD reviewed allergy test with pt, will send rx for cetirizine 10 mg [id number] Arianne River APN, CAROLINE [facility] (Adult Med) [address] Davies [address] [place] [address] 02/20/2022 14:33:02 02/21/2022 10:22:02 Insomnia 073246630 G47.00 may cont on Ambien 10 mg Chronic depression 18087 0009 F34.1 cont medication s: escitalopr am 20 mg qd Seizure 43763091 R56.9 no recent seizures, cont with neuro Environmental allergy 42 6219088 T78.49XD reviewed allergy test with pt, will send rx for cetirizine 10 mg Overweight 936765286 E66 .3 advised low fat, low cholestero l diet, regular exercise and weight reduction. [id number] Jareth Townsend MD [place] 14 OB [address] [facility] [address] Davies [address] [place] [address] 03/19/2022 16:15:12 03/20/2022 09:14:00 Gynecologic examination 82117624 Z01.419 History of malignant neoplasm of breast 074192549 Z85.3 [id number] Arianne River APN, FNP-C [place] (Adult Med) [address] Davies [address] [place] [address] 03/20/2022 14:40:48 03/21/2022 08:18:42 Pain of sternum 561224909 R07.2 ttp sternum to right anterior chest wall and along lateral to posterior ribs 3-5 bilaterall y, repeat chest xray Fracture of clavicle 581 21257 S42.002D cont with sling/immo bilizer as directed Fracture o f multiple ribs 6112465 S22.43XD ttp sternum to right anterior chest wall and along lateral to posterior ribs 3-5 bilaterall y, repeat chest xray Long-term current use of drug therapy 479417720 Z79.899 check drug screen prior to ambien dosing Overweight 682524696 E66 .3 advised low fat, low cholestero l diet, regular exercise and weight reduction. [id number] Arianne River APN, FNP-C [place] (Adult Med) [address] Davies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
--- OUTSIDE RECORDS SUMMARY | 2024-08-23 18:11 | XMS_ITS | Patient Health Summary ---
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 Interpreting Provider: Laurence Torres MD on 03/07/2022 1:04 PM Narrative 03/07/2022 1:04 PM CDT PROCEDURE: CT HEAD WO CONTRAST, CT THORACIC SPINE WO CONTRAST, CT LUMBAR SPINE WO CONTRAST, CT CERVICAL SPINE WO CONTRAST, DATE/TIME OF EXAM: 03/07/2022 5:25 AM, LOCATION [facility] INDICATION: Trauma COMPARISON: None. EXAMINATIONS: CT of the head without intravenous contrast CT of the cervical spine without intravenous contrast CT of the thoracic spine CT of the lumbar spine TECHNIQUE: CT of the head and cervical spine was performed without intravenous contrast according to standard protocol. CT images of the thoracic spine and lumbar spine were reformatted from the concurrently obtained CT scan of the chest, abdomen and pelvis with intravenous contrast. CT dose reduction technique was used, including Automated Exposure Control. FINDINGS: Head: There is no acute intracranial hemorrhage. There is no hydrocephalus, midline shift or extra-axial fluid collection. The brain parenchyma is normal in appearance. The paranasal sinuses and tympanomastoid cavities are aerated.The orbits are unremarkable. There is no calvarial fracture. Cervical spine: There is no fracture or traumatic subluxation. The prevertebral soft tissues are within normal limits. No significant degenerative changes are seen. There is no spinal canal or foraminal stenosis. There are no aggressive appearing lytic or sclerotic bone lesions. Thoracic spine: There is no fracture or traumatic subluxation. No significant degenerative changes are seen. There is no spinal canal or foraminal stenosis. There are no aggressive appearing lytic or sclerotic bone lesions. Lumbar spine: There is no fracture or traumatic subluxation of the lumbar spine. The included sacrum is intact. Mild levoscoliosis is seen, centered at L4-5. There are significant degenerative changes at the L4-5 disc/endplates resulting in mild spinal canal and mild bilateral foraminal stenosis. Otherwise, no other levels of significant degenerative changes, spinal canal or foraminal stenosis are noted. There are no aggressive appearing lytic or sclerotic bone lesions. The paraspinal soft tissues are unremarkable. Procedure Note Laurence Torres MD - 03/07/2022 PROCEDURE: CT HEAD WO CONTRAST, CT THORACIC SPINE WO CONTRAST, CTLUMBAR SPINE WO CONTRAST, CT CERVICAL SPINE WO CONTRAST, DATE/TIME OF EXAM: 03/07/2022 5:25 AM, LOCATION [facility] INDICATION: Trauma COMPARISON: None. EXAMINATIONS: CT of the head without intravenous contrast CT of the cervical spine without intravenous contrast CT of the thoracic spine CT of the lumbar spine TECHNIQUE: CT of the head and cervical spine was performed without intravenous contrast according to standard protocol. CT images of the thoracic spine and lumbar spine were reformatted from the concurrently obtained CT scan of the chest, abdomen and pelvis with intravenous contrast. CT dose reduction technique was used, including Automated Exposure Control. FINDINGS: Head: There is no acute intracranial hemorrhage. There is no hydrocephalus, midline shift or extra-axial fluid collection. The brain parenchyma is normal in appearance. The paranasal sinuses and tympanomastoid cavities are aerated.The orbits are unremarkable. There is no calvarial fracture. Cervical spine: There is no fracture or traumatic subluxation. The prevertebral soft tissues are within normal limits. No significant degenerative changes are seen. There is no spinal canalor foraminal stenosis. There are no aggressive appearing lytic or sclerotic bone lesions. Thoracic spine: There is no fracture or traumatic subluxation. No significant degenerative changes are seen. There is no spinal canalor foraminal stenosis. There are no aggressive appearing lytic or sclerotic bone lesions. Lumbar spine: There is no fracture or traumatic subluxation of the lumbar spine. The included sacrum is intact. Mild levoscoliosis is seen, centered at L4-5. There are significant degenerative changes at the L4-5 disc/endplates resulting in mild spinal canal and mild bilateral foraminal stenosis. Otherwise, no other levelsof significant degenerative changes, spinal canal or foraminal stenosis are noted. There are no aggressive appearing lytic or sclerotic bonelesions. The paraspinal soft tissues are unremarkable. IMPRESSION: Head: 1.No acute intracranial abnormality. Cervical, thoracic and lumbar spine: 1.No fracture of the cervical, thoracic and lumbar spine. 2.Please refer to the separately dictated report of CT scan of thechest, abdomen and pelvis for intrathoracic and intra-abdominal findings (including fracture of the sternum with adjacent retrosternal hemorrhage and possible lung contusions). > Dictated by Tito Thompson MD (Screen Printing Stencil Preparer) I, Laurence Bordia, MD have personally reviewed and interpreted this examination/study. > Interpreting Provider: Laurence Torres MD on 03/07/2022 1:04 PM Feroz Salazar MD CT ORDERABLES * CT ANGIO NECK - Neck Trauma, inj suspected, blunt or penetrating (03/07/2022 5:22 AM CDT) Anatomical Region Laterality Modality Head Computed Tomogra phy 03/07/2022 6:05 AM CDT Impressions 03/07/2022 1:09 PM CDT IMPRESSION: No CT evidence of traumatic injury of the included aortic arch or cervical segments of carotid and vertebral arteries. > Dictated by Tito Thompson MD (Screen Printing Stencil Preparer) Laurence Sinha MD have personally reviewed and interpreted this examination/study. > Interpreting Provider: Laurence Torres MD on 03/07/2022 1:09 PM Narrative 03/07/2022 1:09 PM CDT PROCEDURE: CT ANGIO NECK, DATE/TIME OF EXAM: 03/07/2022 5:25 AM, LOCATION [facility] INDICATION: Trauma ADDITIONAL CLINICAL INFORMATION: Left clavicle fracture COMPARISON: None. EXAMINATION: CT angiogram of the neck TECHNIQUE: CT angiography of the neck was obtained after administration of intravenous contrast. Three dimensional postprocessing was performed by the technologist and sent to the workstation for review. NASCET criteria was utilized for evaluation of carotid stenosis. CT dose reduction technique was used, including Automated Exposure Control. CONTRAST: 100 mL of Isovue-370 was administered intravenously. FINDINGS: *Aortic arch: Normal without calcification or ostial stenosis. Two-vessel configuration of branch vessel origin. *Right carotid system: Patent. Normal caliber without stenosis. No calcified plaque. *Left carotid system: Patent. Normal caliber without stenosis. No calcified plaque. *Right vertebral artery: Patent. Normal caliber without stenosis. No calcified plaque. *Left vertebral artery: Patent. Normal caliber without stenosis. No calcified plaque. Extravascular findings: No significant finding. Procedure Note Laurence Torres MD - 03/07/2022 PROCEDURE: CT ANGIO NECK, DATE/TIME OF EXAM: 03/07/2022 5:25 AM, LOCATION [facility] INDICATION: Trauma ADDITIONAL CLINICAL INFORMATION: Left clavicle fracture COMPARISON: None. EXAMINATION: CT angiogram of the neck TECHNIQUE: CT angiography of the neck was obtained after administrationof intravenous contrast. Three dimensional postprocessing was performed bythe technologist and sent to the workstation for review. NASCET criteria was utilized for evaluation of carotid stenosis. CT dose reduction technique was used, including Automated Exposure Control. CONTRAST: 100 mL of Isovue-370 was administered intravenously. FINDINGS: *Aortic arch: Normal without calcification or ostial stenosis.Two-vessel configuration of branch vessel origin. *Right carotid system: Patent. Normal caliber without stenosis. No calcified plaque. *Left carotid system: Patent. Normal caliber without stenosis. Nocalcified plaque. *Right vertebral artery: Patent. Normal caliber without stenosis. No calcified plaque. *Left vertebral artery: Patent. Normal caliber without stenosis. No calcified plaque. Extravascular findings: No significant finding. IMPRESSION: No CT evidence of traumatic injury of the included aortic arch orcervical segments of carotid and vertebral arteries. > Dictated by Tito Thompson MD (Screen Printing Stencil Preparer) Laurence Sinha MD have personally reviewed and interpreted this examination/study. > Interpreting Provider: Laurence Torres MD on 03/07/2022 1:09 PM Feroz Salazar MD CT ORDERABLES * CT HEAD WO CONTRAST - Head Trauma, CSF leak, mental status changes (03/07/2022 5:22 AM CDT) Anatomical Region Laterality Modality Head Computed Tomogra phy 03/07/2022 5:55 AM CDT Impressions 03/07/2022 1:04 PM CDT IMPRESSION: Head: 1.No acute intracranial abnormality. Cervical, thoracic and lumbar spine: 1.No fracture of the cervical, thoracic and lumbar spine. 2.Please refer to the separately dictated report of CT scan of the chest, abdomen and pelvis for intrathoracic and intra-abdominal findings (including fracture of the sternum with adjacent retrosternal hemorrhage and possible lung contusions). > Dictated by Tito Thompson MD (Screen Printing Stencil Preparer) Laurence Sinha MD have personally reviewed and interpreted this examination/study. > Interpreting Provider: Laurence Torres MD on 03/07/2022 1:04 PM Narrative 03/07/2022 1:04 PM CDT PROCEDURE: CT HEAD WO CONTRAST, CT THORACIC SPINE WO CONTRAST, CT LUMBAR SPINE WO CONTRAST, CT CERVICAL SPINE WO CONTRAST, DATE/TIME OF EXAM: 03/07/2022 5:25 AM, LOCATION [facility] INDICATION: Trauma COMPARISON: None. EXAMINATIONS: CT of the head without intravenous contrast CT of the cervical spine without intravenous contrast CT of the thoracic spine CT of the lumbar spine TECHNIQUE: CT of the head and cervical spine was performed without intravenous contrast according to standard protocol. CT images of the thoracic spine and lumbar spine were reformatted from the concurrently obtained CT scan of the chest, abdomen and pelvis with intravenous contrast. CT dose reduction technique was used, including Automated Exposure Control. FINDINGS: Head: There is no acute intracranial hemorrhage. There is no hydrocephalus, midline shift or extra-axial fluid collection. The brain parenchyma is normal in appearance. The paranasal sinuses and tympanomastoid cavities are aerated.The orbits are unremarkable. There is no calvarial fracture. Cervical spine: There is no fracture or traumatic subluxation. The prevertebral soft tissues are within normal limits. No significant degenerative changes are seen. There is no spinal canal or foraminal stenosis. There are no aggressive appearing lytic or sclerotic bone lesions. Thoracic spine: There is no fracture or traumatic subluxation. No significant degenerative changes are seen. There is no spinal canal or foraminal stenosis. There are no aggressive appearing lytic or sclerotic bone lesions. Lumbar spine: There is no fracture or traumatic subluxation of the lumbar spine. The included sacrum is intact. Mild levoscoliosis is seen, centered at L4-5. There are significant degenerative changes at the L4-5 disc/endplates resulting in mild spinal canal and mild bilateral foraminal stenosis. Otherwise, no other levels of significant degenerative changes, spinal canal or foraminal stenosis are noted. There are no aggressive appearing lytic or sclerotic bone lesions. The paraspinal soft tissues are unremarkable. Procedure Note Laurence Torres MD - 03/07/2022 PROCEDURE: CT HEAD WO CONTRAST, CT THORACIC SPINE WO CONTRAST, CTLUMBAR SPINE WO CONTRAST, CT CERVICAL SPINE WO CONTRAST, DATE/TIME OF EXAM: 03/07/2022 5:25 AM, LOCATION [facility] INDICATION: Trauma COMPARISON: None. EXAMINATIONS: CT of the head without intravenous contrast CT of the cervical spine without intravenous contrast CT of the thoracic spine CT of the lumbar spine TECHNIQUE: CT of the head and cervical spine was performed without intravenous contrast according to standard protocol. CT images of the thoracic spine and lumbar spine were reformatted from the concurrently obtained CT scan of the chest, abdomen and pelvis with intravenous contrast. CT dose reduction technique was used, including Automated Exposure Control. FINDINGS: Head: There is no acute intracranial hemorrhage. There is no hydrocephalus, midline shift or extra-axial fluid collection. The brain parenchyma is normal in appearance. The paranasal sinuses and tympanomastoid cavities are aerated.The orbits are unremarkable. There is no calvarial fracture. Cervical spine: There is no fracture or traumatic subluxation. The prevertebral soft tissues are within normal limits. No significant degenerative changes are seen. There is no spinal canalor foraminal stenosis. There are no aggressive appearing lytic or sclerotic bone lesions. Thoracic spine: There is no fracture or traumatic subluxation. No significant degenerative changes are seen. There is no spinal canalor foraminal stenosis. There are no aggressive appearing lytic or sclerotic bone lesions. Lumbar spine: There is no fracture or traumatic subluxation of the lumbar spine. The included sacrum is intact. Mild levoscoliosis is seen, centered at L4-5. There are significant degenerative changes at the L4-5 disc/endplates resulting in mild spinal canal and mild bilateral foraminal stenosis. Otherwise, no other levelsof significant degenerative changes, spinal canal or foraminal stenosis are noted. There are no aggressive appearing lytic or sclerotic bonelesions. The paraspinal soft tissues are unremarkable. IMPRESSION: Head: 1.No acute intracranial abnormality. Cervical, thoracic and lumbar spine: 1.No fracture of the cervical, thoracic and lumbar spine. 2.Please refer to the separately dictated report of CT scan of thechest, abdomen and pelvis for intrathoracic and intra-abdominal findings (including fracture of the sternum with adjacent retrosternal hemorrhage and possible lung contusions). > Dictated by Tito Thompson MD (Screen Printing Stencil Preparer) Laurence Sinha MD have personally reviewed and interpreted this examination/study. > Interpreting Provider: Laurence Torres MD on 03/07/2022 1:04 PM Feroz Salazar MD CT ORDERABLES * PTT [facility] (03/07/2022 5:08 AM CDT) APTT 23.8 23.0 - 38.4 Seconds 03/07/2022 5:37 AM CDT [facility] Comment:Suggested therapeuti c range for full dose I.V. unfractionated heparin therapy for venous thromboembolism is 71 to 109 seconds. Blood BLOOD SPECIMEN / Unknown Venipuncture / Unknown 03/07/2022 5:08 AM CDT 03/07/2022 5:12 AM CDT Feroz Salazar MD LAB - COAGULATION O CHIKIS Performing Organization Address [facility] de Phone Number [address] [address], [facility] [phone] * PT-INR [facility] (03/07/2022 5:08 AM CDT) PT 12.1 12.1 - 14.8 Seconds 03/07/2022 5:37 AM CDT [facility] INR 0.9 See Comment 03/07/2022 5:37 AM CDT [facility] Comment:The suggested therap eutic range for standard coumadin (warfarin) therapy is an INR of 2.0-3.0. For high-risk patients (Mechanical Mitral Valve Prosthesis, etc.), the suggested prophylactic therapeutic range is an INR of 2.5-3.5. Blood BLOOD SPECIMEN / Unknown Venipuncture / Unknown 03/07/2022 5:08 AM CDT 03/07/2022 5:12 AM CDT Feroz Salazar MD LAB - COAGULATION O CHIKIS Performing Organization Address [facility]/ZIP Co de Phone Number [address] [address], [place] [phone] * (ABNORMAL) URINALYSIS W/MICROSCOPIC NO CULTURE (03/07/2022 5:08 AM [facility]) Color UA Yellow Straw, Yellow 03/07/2022 5:37 AM [facility] Clarity UA Clear Clear 03/07/2022 5:37 AM [facility] Specific [place] UA 1.020 1.005 - 1.030 03/07/2022 5:37 AM [facility] pH UA 7.0 5.0 - 8.0 pH 03/07/2022 5:37 AM [facility] Protein UA Negative Negative 03/07/2022 5:37 AM [facility] Glucose UA Negative Negative 03/07/2022 5:37 AM [facility] Ketone UA Negative Negative 03/07/2022 5:37 AM [facility] Bilirubin UA Negative Negative 03/07/2022 5:37 AM [facility] Blood UA Negative Negative 03/07/2022 5:37 AM [facility] Nitrite UA Negative Negative 03/07/2022 5:37 AM [facility] Leukocyte Esterase Negative Negative 03/07/2022 5:37 AM [facility] Urobilinogen UA Negative Negative mg/dL 03/07/2022 5:37 AM [facility] RBC UA 0-2 None Seen, 0-2, 3-5 /HPF 03/07/2022 5:37 AM [facility] WBC UA 0-5 None Seen, 0-5 /HPF 03/07/2022 5:37 AM [facility] Bacteria UA Trace(A) None /HPF 03/07/2022 5:37 AM [facility] Squamous Epithelial Cells UA 0-2 None Seen, 0-2, 3-5 /HPF 03/07/2022 5:37 AM [facility] Urine URINE SPECIMEN OBTAINED BY CLEAN CATCH PROCEDURE / Unknown Collection / Unknown 03/07/2022 5:08 AM CDT 03/07/2022 5:12 AM [facility] - 03/07/2022 5:37 AM T Feroz Salaazr MD LAB - URINALYSIS OR DERABLES [facility] [address] [place] [address], [facility] [phone] * TYPE + SCREEN PANEL (03/07/2022 5:08 AM CDT) [facility] Antibody Screen NEG 6:06 AM CDT [facility] BLOOD BANK LAB ABO Rh B NEG 03/07/2022 6:06 AM CDT [facility] BLOOD BANK LAB Blood Bank BLOOD SPECIMEN / Unknown Venipuncture / Unknown 03/07/2022 5:08 AM CDT 03/07/2022 5:22 AM CDT Feroz Salazar MD LAB - BLOOD BANK OR DERABLES Performing Organization Address [facility]/ZIP Co de Phone Number [facility] BLOOD BANK LAB [address] [place] [address], [facility] [phone] * (ABNORMAL) CBC W AUTO DIFFERENTIAL (03/07/2022 5:08 AM CDT) [facility] WBC 9.5 3.5 - 10.5 10 3/uL 03/07/2022 5:20 AM [facility] RBC 4.14 3.80 - 5.20 10 6/uL 03/07/2022 5:20 AM [facility] Hemoglobin 11.9(L) 12.0 - 15.6 g/dL 03/07/2022 5:20 AM [facility] Hematocrit 34.7(L) 35.0 - 45.0 % 03/07/2022 5:20 AM [facility] MCV 83.8 80.7 - 98.3 fL 03/07/2022 5:20 AM [facility] MCH 28.7 26.7 - 34.0 pg 03/07/2022 5:20 AM [facility] MCHC 34.3 30.8 - 35.9 g/dL 03/07/2022 5:20 AM [facility] Platelet Count 262 150 - 400 10 3/uL 03/07/2022 5:20 AM [facility] RDW-SD 41.1 36.0 - 50.0 fL 03/07/2022 5:20 AM [facility] RDW-CV 13.3 11.2 - 14.8 % 03/07/2022 5:20 AM [facility] MPV 8.8(L) 9.4 - 12.9 fL 03/07/2022 5:20 AM [facility] nRBC Absolute 0.00 0 10 3/uL 03/07/2022 5:20 AM [facility] nRBC Auto 0.0 0 /100 WBC 03/07/2022 5:20 AM [facility] Neutrophils % 76.1(H) 35.0 - 70.0 % 03/07/2022 5:20 AM [facility] Lymphocytes % 16.6(L) 20.0 - 43.0 % 03/07/2022 5:20 AM [facility] Monocytes % 6.7 5.0 - 13.0 % 03/07/2022 5:20 AM [facility] Eosinophils % 0.0 0.0 - 6.0 % 03/07/2022 5:20 AM [facility] Basophil % 0.1 0.0 - 2.0 % 03/07/2022 5:20 AM [facility] Neutrophils Absolute 7.21(H) 1.60 - 7.00 10 3/uL 03/07/2022 5:20 AM [facility] Lymphocyte Absolute 1.57 1.10 - 3.90 10 3/uL 03/07/2022 5:20 AM [facility] Monocytes Absolute 0.63 0.26 - 1.07 10 3/uL 03/07/2022 5:20 AM [facility] Eosinophils Absolute 0.00 0.00 - 0.47 10 3/uL 03/07/2022 5:20 AM [facility] Basophils Absolute 0.01 0.00 - 0.08 10 3/uL 03/07/2022 5:20 AM [facility] Immature Granulocytes % 0.5 0.0 - 1.0 % 03/07/2022 5:20 AM [facility] Immature Granulocytes Absolute 0.05 03/07/2022 5:20 AM [facility] Blood BLOOD SPECIMEN / Unknown Venipuncture / Unknown 03/07/2022 5:08 AM CDT 03/07/2022 5:14 AM CDT Feroz Salazar MD LAB - HEMATOLOGY OR DERABLES [facility] [address] [place] [address], [facility] [phone] * (ABNORMAL) BASIC METABOLIC PANEL (CALCIUM TOTAL) (03/07/2022 5:08 AM CDT) BUN 10 7 - 26 mg/dL 03/07/2022 5:42 AM [facility] Creatinine 0.70 0.56 - 0.96 mg/dL 03/07/2022 5:42 AM [facility] Sodium 145 136 - 145 mmol/L 03/07/2022 5:42 AM [facility] Potassium 3.9 3.5 - 4.5 mmol/L 03/07/2022 5:42 AM [facility] Chloride 112(H) 98 - 107 mmol/L 03/07/2022 5:42 AM [facility] CO2 22 22 - 29 mmol/L 03/07/2022 5:42 AM [facility] Glucose 131(H) 70 - 115 mg/dL 03/07/2022 5:42 AM [facility] Calcium 8.3(L) 8.4 - 10.2 mg/dL 03/07/2022 5:42 AM [facility] Anion Gap 15 8 - 18 03/07/2022 5:42 AM [facility] BUN/Creatinine Ratio 14 7 - 23 03/07/2022 5:42 AM [facility] Osmolality Calculated 301(H) 270 - 300 mOsm/kg 03/07/2022 5:42 AM [facility] eGFR by CKD-EPI >90 >=90 mL/min/1.7 3 m2 03/07/2022 5:42 AM [facility] Blood BLOOD SPECIMEN / Unknown Venipuncture / Unknown 03/07/2022 5:08 AM CDT 03/07/2022 5:14 AM CDT Feroz Salazar MD LAB - CHEMISTRY ORD ERABLES [facility] [address] [place] [address], [place] [phone] * (ABNORMAL) URINE DRUG SCREEN IMMUNOASSAY (03/07/2022 5:08 AM CDT) [facility] Amphetamines Screen Urine Positive(A) Negative : < 1000 ng/mL 03/07/2022 5:28 AM [facility] Comment: Positive urine amphetamine screening results should be confirmed by another generally accepted non-immunological method such as gas chromatography or mass spectrometry. Barbiturates Screen Urine Negative Negative : < 200 ng/mL 03/07/2022 5:28 AM [facility] Benzodiazepine Screen Urine Negative Negative : < 200 ng/mL 03/07/2022 5:28 AM [facility] Opiates Urine Positive(A) Negative : < 300 ng/mL 03/07/2022 5:28 AM [facility] Comment:Positive urine opiat e screening results should be confirmed by another generally accepted non-immunological method such as gas chromatography or mass spectrometry. Cocaine Metabolites Urine Negative Negative : < 300 ng/mL 03/07/2022 5:28 AM [facility] Phencyclidine Screen Urine Negative Negative : < 25 ng/ml 03/07/2022 5:28 AM [facility] Cannabinoids Screen Urine Negative Negative : <50 ng/mL 03/07/2022 5:28 AM [facility] Methadone Screen Urine Negative Negative : < 300 ng/mL 03/07/2022 5:28 AM [facility] Fentanyl Screen Urine Negative Negative : <1.5 ng/mL 03/07/2022 5:28 AM [facility] Urine URINE / Unknown Collection / Unknown 03/07/2022 5:08 AM CDT 03/07/2022 5:13 AM CDT Narrative [facility] - 03/07/2022 5:28 AM CDT The Urine Toxicology Screening Panel does not screen for Propoxyphene, Meprobamate, Carisoprodol, Trazodone, [id number] medications and/or volatiles (Acetone, Isopropanol, Methanol or Ethylene Glycol). Ethanol, Salicylate, Acetaminophen, Tricyclic Antidepressants and several therapeutic drugs may be individually assayed in serum or plasma specimen. Toxicology testing by the [facility] is an aid to medical diagnosis and treatment of patients. No documented chain of custody was maintained. Results are intended to be used for clinical purposes only. Feroz Salazar MD LAB - URINE EMULSIFICATION OPERATOR RY ORDERABLES Performing Organization Address [facility] Co de Phone Number [address] [address], [facility] [phone] * HCG BETA BLOOD QUANTITATIVE (03/07/2022 5:08 AM CDT) Pathologist [facility] Beta-hCG Total Quantitative <3 mIU/mL 03/07/2022 5:47 AM CDT [facility] Comment: This assay is cleared for use in the early detection of only. It is not approved for any other uses such as tumor marker screening, tumor marker monitoring, etc. and should not be used for any other purposes. HCG Numeric Result Interpretation: Non- Females: < 5 mIU/mL Post-Menopausal Females: < 7 mIU/mL Blood BLOOD SPECIMEN / Unknown Venipuncture / Unknown 03/07/2022 5:08 AM CDT 03/07/2022 5:14 AM CDT Feroz Salazar MD LAB - CHEMISTRY ORD ERABLES Performing Organization Address [facility] Co de Phone Number [address] [address], [facility] [phone] * (ABNORMAL) ALCOHOL ETHYL BLOOD (03/07/2022 5:08 AM CDT) Ethanol (mg/dL) 157(H) <10 mg/dL 5:42 AM CDT [facility] Ethanol Calculated (g/dL) 0.157(H) <=0.010 g/dL 03/07/2022 5:42 AM CDT [facility] Blood BLOOD SPECIMEN / Unknown Venipuncture / Unknown 03/07/2022 5:08 AM CDT 03/07/2022 5:14 AM CDT Narrative [facility] - 03/07/2022 5:42 AM CDT Ethanol Interp <10: None Detected. Depression of IMAGERY INTELLIGENCE: >100 mg/dl Potentially Critical: >250 mg/dl Potentially Fatal >400 mg/dl Ethanol in the patient's blood will contribute to the osmolar gap. Ethanol's contribution to the osmolar gap can be estimated by dividing the concentration of ethanol in mg/dL by 4.6. This test is for clinical use only and does not equal a ANGELITO for legal purposes. Feroz Salazar MD LAB - CHEMISTRY ORD ERABLES [facility] [address] [place] [address], [facility] [phone] * XR PELVIS 1 OR 2VW (03/07/2022 5:04 AM CDT) Anatomical Region Laterality Modality Pelvis Radiographic Svetlana ging 03/07/2022 7:33 AM CDT Impressions 03/07/2022 12:50 PM CDT IMPRESSION: Chest: Bilateral diffuse interstitial opacities likely represent pulmonary contusion and/or atelectasis. Acute left-sided rib fractures without evidence of pneumothorax or hemothorax. Acute mildly displaced left distal clavicle fracture. Pelvis: No acute fracture identified. Report dictated by Gabriela Hooks MD (vice president integrated). I, Lillian Santos MD have personally reviewed and interpreted this examination/study. > Interpreting Provider: Lillian Santos MD on 03/07/2022 12:50 PM Narrative 03/07/2022 12:50 PM CDT EXAMINATION: XR CHEST 1VW PORTABLE, XR PELVIS 1 OR 2VW DATE/TIME OF EXAM: 03/07/2022 5:04 AM, LOCATION [facility] HISTORY: Trauma COMPARISON: No prior study is available for comparison. FINDINGS: Chest: Low lung volumes with bronchovascular crowding. Bilateral diffuse interstitial opacities may represent pulmonary contusion and/or atelectasis. No pleural effusion is seen. No pneumothorax is identified on this supine exam. The cardiac silhouette is normal. The superior mediastinal contours are slightly enlarged; recommend correlation with concurrent CT. Acute mildly displaced left distal clavicle fracture. Acute moderately displaced left lateral third-fifth rib fractures. Postoperative changes of bilateral mastectomy and bilateral breast implants with multiple surgical clips projecting over bilateral lower chest. Pelvis: No acute displaced pelvic fracture is identified. The femoral heads appear well-seated within their respective acetabula. No diastasis of pubic symphysis or sacroiliac joints. Bone density and texture are normal. . Multiple surgical clips project over the right abdomen and bilateral pelvis. Procedure Note Lillian Santos MD - 03/07/2022 EXAMINATION: XR CHEST 1VW PORTABLE, XR PELVIS 1 OR 2VW DATE/TIME OF EXAM: 03/07/2022 5:04 AM, LOCATION [facility] HISTORY: Trauma COMPARISON: No prior study is available for comparison. FINDINGS: Chest: Low lung volumes with bronchovascular crowding. Bilateral diffuse interstitial opacities may represent pulmonary contusion and/or atelectasis. No pleural effusion is seen. No pneumothorax is identifiedon this supine exam. The cardiac silhouette is normal. The superior mediastinal contours are slightly enlarged; recommend correlation with concurrent CT. Acute mildly displaced left distal clavicle fracture.Acute moderately displaced left lateral third-fifth rib fractures.Postoperative changes of bilateral mastectomy and bilateral breast implants withmultiple surgical clips projecting over bilateral lower chest. Pelvis: No acute displaced pelvic fracture is identified. The femoral headsappear well-seated within their respective acetabula. No diastasis of pubic symphysis or sacroiliac joints. Bone density and texture are normal. . Multiple surgical clips project over the right abdomen and bilateral pelvis. IMPRESSION: Chest: Bilateral diffuse interstitial opacities likely representpulmonary contusion and/or atelectasis. Acute left-sided rib fractures without evidence of pneumothorax or hemothorax. Acute mildly displaced leftdistal clavicle fracture. Pelvis: No acute fracture identified. Report dictated by Gabriela Hooks MD (vice president integrated). I, Lillian Santos MD have personally reviewed and interpreted this examination/study. > Interpreting Provider: Lillian Santos MD on 03/07/2022 12:50 PM Feroz Salazar MD DIAGNOSTIC IMAGING ORDERABLES * XR CHEST 1VW PORTABLE (03/07/2022 5:04 AM CDT) Anatomical Region Laterality Modality Chest Radiographic Svetlana ging 03/07/2022 7:33 AM CDT Impressions 03/07/2022 12:50 PM CDT IMPRESSION: Chest: Bilateral diffuse interstitial opacities likely represent pulmonary contusion and/or atelectasis. Acute left-sided rib fractures without evidence of pneumothorax or hemothorax. Acute mildly displaced left distal clavicle fracture. Pelvis: No acute fracture identified. Report dictated by Gabriela Hooks MD (vice president integrated). ILillian MD have personally reviewed and interpreted this examination/study. > Interpreting Provider: Lillian Santos MD on 03/07/2022 12:50 PM Narrative 03/07/2022 12:50 PM CDT EXAMINATION: XR CHEST 1VW PORTABLE, XR PELVIS 1 OR 2VW DATE/TIME OF EXAM: 03/07/2022 5:04 AM, LOCATION [facility] HISTORY: Trauma COMPARISON: No prior study is available for comparison. FINDINGS: Chest: Low lung volumes with bronchovascular crowding. Bilateral diffuse interstitial opacities may represent pulmonary contusion and/or atelectasis. No pleural effusion is seen. No pneumothorax is identified on this supine exam. The cardiac silhouette is normal. The superior mediastinal contours are slightly enlarged; recommend correlation with concurrent CT. Acute mildly displaced left distal clavicle fracture. Acute moderately displaced left lateral third-fifth rib fractures. Postoperative changes of bilateral mastectomy and bilateral breast implants with multiple surgical clips projecting over bilateral lower chest. Pelvis: No acute displaced pelvic fracture is identified. The femoral heads appear well-seated within their respective acetabula. No diastasis of pubic symphysis or sacroiliac joints. Bone density and texture are normal. . Multiple surgical clips project over the right abdomen and bilateral pelvis. Procedure Note Lillian Santos MD - 03/07/2022 EXAMINATION: XR CHEST 1VW PORTABLE, XR PELVIS 1 OR 2VW DATE/TIME OF EXAM: 03/07/2022 5:04 AM, LOCATION [facility] HISTORY: Trauma COMPARISON: No prior study is available for comparison. FINDINGS: Chest: Low lung volumes with bronchovascular crowding. Bilateral diffuse interstitial opacities may represent pulmonary contusion and/or atelectasis. No pleural effusion is seen. No pneumothorax is identifiedon this supine exam. The cardiac silhouette is normal. The superior mediastinal contours are slightly enlarged; recommend correlation with concurrent CT. Acute mildly displaced left distal clavicle fracture.Acute moderately displaced left lateral third-fifth rib fractures.Postoperative changes of bilateral mastectomy and bilateral breast implants withmultiple surgical clips projecting over bilateral lower chest. Pelvis: No acute displaced pelvic fracture is identified. The femoral headsappear well-seated within their respective acetabula. No diastasis of pubic symphysis or sacroiliac joints. Bone density and texture are normal. . Multiple surgical clips project over the right abdomen and bilateral pelvis. IMPRESSION: Chest: Bilateral diffuse interstitial opacities likely representpulmonary contusion and/or atelectasis. Acute left-sided rib fractures without evidence of pneumothorax or hemothorax. Acute mildly displaced leftdistal clavicle fracture. Pelvis: No acute fracture identified. Report dictated by Gabriela Hooks MD (vice president integrated). I, Lillian Santos MD have personally reviewed and interpreted this examination/study. > Interpreting Provider: Lillian Santos MD on 03/07/2022 12:50 PM Feroz Salazar MD DIAGNOSTIC IMAGING ORDERABLES Care Teams Telecommunication Tower Technician Relationship Specialty Start Date End Date Arianne Alarcon APRN-ROMEL [address] [place] [address] PCP - General 10/08/19
--- OUTSIDE RECORDS SUMMARY | 2024-08-23 18:11 | XMS_ITS | Encounter Summary ---
Author Organization [facility] Address [address] [place] [address] Phone Care Team Providers Care Agronomy Professor Name Role Phone Jack Dukes MD Unavailable [phone] Arianne Alarcon APRN, CHART CLERK Primary Care Provider [phone] Lito Chatterjee MD Unavailable [phone] Gustabo Falk MD Unavailable [phone] Amrit Goddard MD Unavailable Phan Grant MD Unavailable [phone] Reason for Visit * Reason Comments Medication Refill Encounter Details Date Type Department Care Team (Late st Contact Info) Description 01/01/2023 Refill [facility] - Neurology [facility] [address] [place] [address] Jack Dukes MD [address] [place] [address] Medication Refill Social History Tobacco Use Types Packs/Day Years Used Date Smoking Tobacco: Never Smokeless Tobacco: Never Alcohol Use Standard Drinks/Week Comments No 0 (1 standard drink = 0.6 oz pur e alcohol) Comments No Sex and Gender Information Value Date Recorded Sex Assigned at Not on file Legal Sex Female 2:52 AM MAIL RIDER Gender Identity Not on file Sexual Orientation Not on file 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 Requested Prescriptions Pending Prescriptions Disp Refills lacosamide (VIMPAT) 100 MG Tablet [Pharmacy Med Name: LACOSAMIDE 100MG TABLET] 60 Tablet 3 Sig: TAKE ONE (1) TABLET BY MOUTH TWO (2) TIMES DAILY. Not Delegated - Anticonvulsants Excluding Benzodiazepines Protocol Failed - 01/01/2023 12:40 PM Failed - This refill cannot be delegated Passed - Visit with relevant provider in past 12 months or upcoming 90 days Recent Visits Date Type Provider Dept 08/01/22 Telemedicine Jack Dukes MD [facility] Neurology [facility] Showing recent visits within past 365 days and meeting all other requirements Future Appointments No visits were found meeting these conditions. Showing future appointments within next 90 days and meeting all other requirements documented in this encounter Plan of Treatment Upcoming Encounters Date Type Department Care Team (Late st Contact Info) Description 08/24/2024 2:45 PM MAIL RIDER Telemedicine [facility] - Neurology [facility] [address] [place] [address] Jack Dukes MD [address] [place] [address] 08/26/2024 1:20 PM MAIL RIDER Office Visit [facility] Oncology Services [address] [place] [address] Phan Grant MD [address] [place] [address] Discharge Disposition: Discharged to home or Selfcare documented as of this encounter Visit Diagnoses Diagnosis Seizures (HCC) Other convulsions documented in this encounter Care Teams Agronomy Professor Relationship Specialty Start Date End Date Arianne Alarcon APRN, CNP [address] [place] [address] PCP - General Family Medicine 08/29/16 Jack Dukes MD [address] [place] [phone] Consulting Physician Neurology 08/21/16 Lito Chatterjee MD [address] [place] [address] Consulting Physician General Surgery 04/27/19 Gustabo Falk MD [address] [place] [address] Consulting Physician Radiation Oncology 04/27/19 Amrit Goddard MD [address] [address] Consulting Physician General Surgery 06/08/19 Phan Grant MD [address] [place] [address] Consulting Physician Medical Oncology 02/16/20 documented as of this encounter
--- OUTSIDE RECORDS SUMMARY | 2024-08-23 18:11 | XMS_ITS | Encounter Summary ---
Author Organization [facility] Address [address] [place] [address] Phone Care Team Providers Care Database Engineer Name Role Phone Jack Dukes MD Unavailable [phone] Arianne Alarcon APRN, LOGGING SUPERVISOR Primary Care Provider [phone] Lito Chatterjee MD Unavailable Gustabo Falk MD Unavailable [phone] Alfred Ochoa MD Unavailable Amrit Goddard MD Unavailable Phan Grant MD Unavailable [phone] Reason for Visit * Reason Comments Medication Refill Encounter Details Date Type Department Care Team (Late st Contact Info) Description 09/14/2019 [facility]ill [facility] - [facility]rology - [place] [address]1 [facility] [place] [address] Jack Dukes MD [address] [place] [address] Medication Refill Social History Tobacco Use Types Packs/Day Years Used Date Smoking Tobacco: Never Smokeless Tobacco: Never Alcohol Use Standard Drinks/Week Comments No 0 (1 standard drink = 0.6 oz pur e alcohol) Comments No Sex and Gender Information Value Date Recorded Sex Assigned at Not on file Legal Sex Female 2:52 AM ELECTRICAL DEVELOPMENT ENGINEER Gender Identity Not on file Sexual Orientation Not on file 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 [address] [place] [address] Jack Dukes MD [address] [place] [address] 08/26/2024 1:20 PM ELECTRICAL DEVELOPMENT ENGINEER Office Visit [facility] Center Oncology Services [address] [place] [address] Phan Grant MD [address] [place] [address] Discharge Disposition: Discharged to home or Selfcare documented as of this encounter Visit Diagnoses Not on filedocumented in this encounter Care Teams Database Engineer Relationship Specialty Start Date End Date AgnesCaseArianneLISA king CNP [address] [place], [place] [phone] PCP - General Family Medicine 08/29/16 Jack Dukes MD [address] [place] [address] Consulting Physician Neurology 08/21/16 Lito Chatterjee MD [address] [place] [address] Consulting Physician General Surgery 04/27/19 Gustabo Falk MD [address] [place] [address] Consulting Physician Radiation Oncology 04/27/19 Alfred Ochoa MD [address] [place] [address] Consulting Physician Medical Oncology 04/27/19 02/15/20 Amrit Goddard MD [address] [address] Consulting Physician General Surgery 06/08/19 Phan Grant MD [address] [place] [address] Consulting Physician Medical Oncology 02/16/20 documented as of this encounter
--- OUTSIDE RECORDS SUMMARY | 2024-08-23 18:11 | XMS_ITS | Encounter Summary ---
Author Organization [facility] Address [address] [place] [address] Phone Care Team Providers Care Emergency Department Manager Name Role Phone Jack Dukes MD Unavailable [phone] Arianne Alarcon APRN, DIGITAL RECRUITER Primary Care Provider [phone] Lito Chatterjee MD Unavailable [phone] Gustabo Falk MD Unavailable [phone] Armit Goddard MD Unavailable Phan Grant MD Unavailable [phone] Reason for Visit * Reason Comments Medication Refill Encounter Details Date Type Department Care Team (Late st Contact Info) Description 09/05/2022 Refill [facility] - Neurology [facility] [address] [place] [address] Jack Dukes MD [address] [place] [address] Medication Refill Social History Tobacco Use Types Packs/Day Years Used Date Smoking Tobacco: Never Smokeless Tobacco: Never Alcohol Use Standard Drinks/Week Comments No 0 (1 standard drink = 0.6 oz pur e alcohol) Comments No Sex and Gender Information Value Date Recorded Sex Assigned at Not on file Legal Sex Female 2:[address] COMMANDER Gender Identity Not on file Sexual Orientation Not on file 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 No / Unsure 08/21/2022 2:[address] PATROL COMMANDER documented as of this encounter Miscellaneous Notes * Telephone Encounter - Sharifa Giang RN - 09/05/2022 2:41 PM CST Medication failed the protocol, provider to review and approve the medication order if appropriate. Requested Prescriptions Pending Prescriptions Disp Refills lamoTRIgine (LaMICtal) 200 MG Tablet [Pharmacy Med Name: LAMOTRIGINE 200MG TABLET] 60 Tablet 6 Sig: TAKE ONE (1) TAB BY MOUTH TWO (2) TIMES DAILY. Not Delegated - Anticonvulsants Excluding Benzodiazepines Protocol Failed - 09/05/2022 12:02 PM Failed - This refill cannot be delegated Passed - Visit with relevant provider in past 12 months or upcoming 90 days Recent Visits Date Type Provider Dept 08/01/22 Telemedicine Jack Dukes MD [facility] Neurology [facility] Showing recent visits within past 365 days and meeting all other requirements Future Appointments No visits were found meeting these conditions. Showing future appointments within next 90 days and meeting all other requirements WAY PATROL COMMANDER documented in this encounter Plan of Treatment Upcoming Encounters Date Type Department Care Team (Late st Contact Info) Description 08/24/2024 2:[address]ROL COMMANDER Telemedicine [facility] - Neurology - [place] [address] [place] [address] Jack Dukes MD [address] [place] [address] 08/26/2024 1:[address] PATROL COMMANDER Office Visit [facility] Center Oncology Services [address] [place] [phone] Phan Grant MD [address] [place] [address] Discharge Disposition: Discharged to home or Selfcare documented as of this encounter Visit Diagnoses Diagnosis Seizures (HCC) Other convulsions documented in this encounter Care Teams Emergency Department Manager Relationship Specialty Start Date End Date Alarcon LISA Acuña, DIGITAL RECRUITER [address] [place] [address] PCP - General Family Medicine 08/29/16 Jack Dukes MD [address] [place] [address] Consulting Physician Neurology 08/21/16 Lito Chatterjee MD [address] [place] [address] Consulting Physician General Surgery 04/27/19 Gustabo Falk MD [address] [place] [address] Consulting Physician Radiation Oncology 04/27/19 Amrit Goddard MD [address] [place] [address] Consulting Physician General Surgery 06/08/19 Phan Grant MD [address] [place], [place] [address] Consulting Physician Medical Oncology 02/16/20 documented as of this encounter
--- OUTSIDE RECORDS SUMMARY | 2024-08-23 18:12 | XMS_ITS | Clinical Summary ---
Author Organization [facility] Address [address] [place] [address] Care Team Providers Care Stationary Engineer Name Role Phone Unavailable Primary Care Provider Unavailabl e Social History Tobacco Use Types Packs/Day Years Used Date Smoking Tobacco: Never Assessed Comments Unknown Sex and Gender Information Value Date Recorded Sex Assigned at Not on file Legal Sex Female 5:54 PM CDT Gender Identity Not on file Sexual Orientation Not on file Last Filed Vital Signs Vital Sign Reading Time Taken Comments Blood Pressure 102/70 06/15/2015 9:24 AM CAR SCRUBBER Pulse 78 06/15/2015 9:24 AM CAR SCRUBBER Temperature - - Respiratory Rate - - Oxygen Saturation - - Inhaled Oxygen Concentration - - Weight 68 kg (150 lb) 06/15/2015 9:24 AM CAR SCRUBBER Height 167.6 cm (5' 6 ) 06/15/2015 9:24 AM CAR SCRUBBER Body Mass Index 24.21 06/15/2015 9:24 AM CAR SCRUBBER Plan of Treatment Health Maintenance Due Date Last Done Comments Cervical Cancer Screening Pa p Smear (Age 30 to 64) Every 3 Years 1976 Colorectal Cancer Screening Colonoscopy (10 Years) 1976 Annual Physical 1979 Hepatitis C 1994 DTaP, Tdap and Td Vaccines ( 1 - Tdap) 1995 Hepatitis B Vaccines (1 of 3 - 19+ 3-dose series) 1995 Cervical Cancer Screening Pa p with HPV Testing (Age 30 to 64) Every 5 Years 2006 Cervical Cancer Screening with HPV 2006 Mammogram Screening 2016 COVID-19 Vaccine ( - 2023-2 5 season) 2024 Influenza Adult (#1) 2024 Meningococcal B Vaccine Aged Out No l onger eligible based on patient's age to complete this topic Meningococcal Vaccine Aged Out No lukasz claribel eligible based on patient's age to complete this topic Pneumococcal Vaccine: Pediat rics (0 to 5 Years) and At-Risk Patients (6 to 64 Years) Aged Out No longer eligible b ased on patient's age to complete this topic RSV Immunizations Under 20 Months Aged Out No longer eligible based on patient's age to complete this topic
--- OUTSIDE RECORDS SUMMARY | 2024-08-23 18:12 | XMS_ITS ---
Author Organization [facility] Address [address] [place] [address] Care Team Providers Care Team Coordinator Name Role Phone Maximiliano Grady Primary Care Provider [phone] [facility], SR Adult ROLLY Unavailabl e [phone] Edinson Miller Unavailable [phone] REASON FOR VISIT Appointment Social History Sex Assigned At : Social History Observation Description Sex Assigned At Female Encounters Encounter Location Date Provider Diagnosis [address] [place] [address] 03/03/2024 Edinson Miller Plan Of Treatment No Information Progress Notes * Lu NGUYỄNDOB: [birth year] (48 yo F)Acc No.[id number]:03/03/2024 Patient: Lu WALKER :1975 A ge:48 Y S ex:Female Address:[place], [address] * true * Date: Generated for Printi ng/Faxing/eTransmitting on: 0 08/23/2024 06:11 PM OIL SPREADER OPERATOR
--- OUTSIDE RECORDS SUMMARY | 2024-08-23 18:12 | XMS_ITS | Encounter Summary ---
Author Organization [facility] Address [address] [place] [address] Phone Care Team Providers Care Electrical Appliance Repairer Name Role Phone Jack Dukes MD Unavailable [phone] Arianne Alarcon APRN, SPOOLER OPERATOR Primary Care Provider [phone] Lito Chatterjee MD Unavailable [phone] Gustabo Falk MD Unavailable [phone] Amrit Goddard MD Unavailable Phan Grant MD Unavailable [phone] Reason for Visit * Reason Comments Medication Refill Encounter Details Date Type Department Care Team (Late st Contact Info) Description 09/10/2023 Refill [facility] - Neurology [facility] [address] [place] [address] Jack Dukes MD [address] [place] [address] Medication Refill Social History Tobacco Use Types Packs/Day Years Used Date Smoking Tobacco: Never Smokeless Tobacco: Never Alcohol Use Standard Drinks/Week Comments No 0 (1 standard drink = 0.6 oz pur e alcohol) Comments No Sex and Gender Information Value Date Recorded Sex Assigned at Not on file Legal Sex Female 2:52 AM STEAM SHOVELMAN Gender Identity Not on file Sexual Orientation Not on file 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 Requested Prescriptions Pending Prescriptions Disp Refills lamoTRIgine (LaMICtal) 200 MG Tablet [Pharmacy Med Name: LAMOTRIGINE 200MG TABLET] 60 Tablet 6 Sig: TAKE ONE (1) TAB BY MOUTH TWO (2) TIMES DAILY. Not Delegated - Anticonvulsants Excluding Benzodiazepines Protocol Failed - 09/10/2023 11:39 AM Failed - This refill cannot be delegated Failed - Visit with relevant provider in past 12 months or upcoming 90 days Recent Visits No visits were found meeting these conditions. Showing recent visits within past 365 days and meeting all other requirements Future Appointments No visits were found meeting these conditions. Showing future appointments within next 90 days and meeting all other requirements M SHOVELMAN documented in this encounter Plan of Treatment Upcoming Encounters Date Type Department Care Team (Late st Contact Info) Description 08/24/2024 2:45 PM STEAM SHOVELMAN Telemedicine [facility] Neurology [facility] [address] [place] [address] Jack Dukes MD [address] [place] [address] 08/26/2024 1:20 PM STEAM SHOVELMAN Office Visit [facility] Oncology Services [address] [place] [address] Phan Grant MD [address] [place] [address] Discharge Disposition: Discharged to home or Selfcare documented as of this encounter Visit Diagnoses Diagnosis Seizures (HCC) Other convulsions documented in this encounter Care Teams Electrical Appliance Repairer Relationship Specialty Start Date End Date Case AlarconLISA king CNP [address] [place] [address] PCP - General Family Medicine 08/29/16 Jack Dukes MD [address] [place] [address] Consulting Physician Neurology 08/21/16 Lito Chatterjee MD [address] [place] [address] Consulting Physician General Surgery 04/27/19 Gustabo Falk MD [address] [place] [address] Consulting Physician Radiation Oncology 04/27/19 Amrit Goddard MD [address] [place] [address] [address] Consulting Physician General Surgery 06/08/19 Phan Grant MD [address] [place] [address] Consulting Physician Medical Oncology 02/16/20 documented as of this encounter
--- OUTSIDE RECORDS SUMMARY | 2024-08-23 18:12 | XMS_ITS | Clinical Summary ---
Author Organization [facility] Address [address] [place] [address] Phone Care Team Providers Care Public Works Manager Name Role Phone Jack Dukes MD Unavailable [phone] Arianne Alarcon APRN, EXTRACTOR OPERATOR SOLVENT PROCESS Primary Care Provider [phone] Lito Chatterjee MD Unavailable [phone] Gustabo Falk MD Unavailable [phone] Amrit Goddard MD Unavailable Phan Grant MD Unavailable [phone] Allergies Active Allergy Reactions Criticality Noted Date Comments Penicillins Swelling High MOUTH; VAGINAL Sulfa Antibiotics Swelling High VAGINAL Medications escitalopram (LEXAPRO) 20 MG Tablet Take 20 mg by mouth daily. Active Multiple Vitamin (MULTIVITAMINS PO) Take 1 Tab by mouth daily. Active zolpidem (AMBIEN) 5 MG Tablet 10 mg. 0 Active Cetirizine HCl (ZYRTEC ALLERGY PO) Take by mouth. Active lacosamide (VIMPAT) 100 MG TabletIndications :Seizures (HCC) TAKE ONE (1) TABLET BY MOUTH TWO (2) TIMES DAILY. 60 Tablet 3 3 Active doxycycline hyclate (VIBRA-TABS) 100 MG Tablet 4 Active lamoTRIgine (LaMICtal) 200 MG TabletIndications :Seizures (HCC) TAKE ONE (1) TAB BY MOUTH TWO (2) TIMES DAILY. 60 Tablet 6 4 Active gabapentin (NEURONTIN) 300 MG CapsuleIndication s: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) TAKE ONE CAPSULE BY MOUTH THREE TIMES a DAY 90 Capsule 3 4 Active buPROPion SR (WELLBUTRIN SR) 150 MG TABLET SR 12 HR Take 1 Tablet by mouth daily. Active Active Problems Problem Noted Date Diagnosed Date Acute foot pain, left 08/11/2023 Skin rash 08/11/2023 Screen for colon cancer 08/21/2022 Acute right-sided low back pain with sciatica Sensory neuropathy 02/08/2020 Anxiety 02/08/2020 Peripheral neuropathy due to chemotherapy 2019 S/P vascular surgery 06/08/2019 Carcinoma of breast, estroge n and progesterone receptor negative, right 04/22/2019 Cancer Staging:Clinical stage from 04/27/2019:Stage IIB(cT2, cN0, cM0, G3, ER+, HI-, HER2-) - Signed by Gustabo Falk MD on 04/28/2019 Pathologic stage from 04/27/2019:Stage IIB(pT2, pN1mi(sn), cM0, G3, ER+, HI-, HER2-) - Unsigned Premenopausal patient 04/22/2019 Seizures 10/22/2016 Resolved Problems Problem Noted Date Diagnosed Date Resolved Date Nodule of soft tissue 01/18/20202021 Estrogen receptor negative status (ER-) 05/06/2019 12/18/2021 HER2-negative carcinoma of right breast 05/06/2019 12/18/2021 Breast mass, right 03/24/2019 9 Overview (03/24/2019): Thank you for visit in my clinic. We will proceed with a core needle biopsy with Radiology in the near future to obtain tissue diagnosis. I will call you with the results of the test. Encounters Date Type Department Care Team Description 08/23/2024 Travel 07/09/2024 8:01 PM LIFE CLAIMS EXAMINER - 07/09/2024 11:40 PM [facility] Emergency [facility] [address] [place] [address] Discharge Disposition: LWBS 07/09/2024 Travel from Last 3 Months Family History Medical History Relation Name Comments Diabetes Mother Hypertension Mother Other-comment Mother Interstital lorrie ng disease Colon Cancer Paternal Grandfather d from cancer. Ovarian Cancer Paternal Grandmother Deces aded from cancer. 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 Not on file Not on file Not on file Last Filed Vital Signs Vital Sign Reading Time Taken Comments Blood Pressure 127/92 07/09/2024 8:05 PM LIFE CLAIMS EXAMINER Pulse 115 07/09/2024 8:05 PM LIFE CLAIMS EXAMINER Temperature 36.7 C (98 F) 07/09/2024 8:05 PM LIFE CLAIMS EXAMINER Respiratory Rate 16 07/09/2024 8:05 PM LIFE CLAIMS EXAMINER Oxygen Saturation 96% 07/09/2024 8:05 PM LIFE CLAIMS EXAMINER Inhaled Oxygen Concentration - - Weight 68 kg (150 lb) 07/09/2024 8:05 PM LIFE CLAIMS EXAMINER Height 165.1 cm (5' 5 ) 07/09/2024 8:05 PM LIFE CLAIMS EXAMINER Body Mass Index 24.96 07/09/2024 8:05 PM LIFE CLAIMS EXAMINER Plan of Treatment Upcoming Encounters Date Type Department Care Team (Late st Contact Info) Description 08/24/2024 2:45 PM LIFE CLAIMS EXAMINER Telemedicine [facility] [address] [place] [address] Jack Dukes MD [address] [place] [address] 08/26/2024 1:20 PM LIFE CLAIMS EXAMINER [facility] [address] [place] [phone] Phan Grant MD [address] [place] [address] Discharge Disposition: Discharged to home or Selfcare Health Maintenance Due Date Last Done Comments Hepatitis C Virus (HCV) Screening 1976 SARS-COV-2 Immunization (#1) 1981 Hepatitis B Immunization (1 of 3 - 19+ 3-dose series) 1995 Pneumococcal Immunization Combined (1 of 2 - PCV) 1995 Pap Smear 1997 Cervical Cancer Screening (CCS) 2006 HPV/Cotest 2006 Colonoscopy 2021 Colorectal Cancer Screening 2021 Influenza Immunization (#1) 03/07/202406/07, 04/07/2020, 05/25/2019, Additional history exists Respiratory Syncytial Virus (RSV) Immunization (Adult) (1 - 1-dose 75+ series) 2051 DTaP/Tdap/Td Immunization Discontinued 2021, 02/19/2011, 02/16/2009 TdaP Immunization Completed 03/07/2022 Discussion re Starting/Frequency of Mammograms Completed 01/22/2024, 10/12/2019, 03/26/2019, Additional history exists Mammogram Unilateral Discontinued 01/22/2024, 10/12/2019, 03/26/2019, Additional history exists Meningococcal Immunization (ACWY) Aged Out No longer eligible based on patient's age to complete this topic Rotavirus Immunization Aged Out No lo nger eligible based on patient's age to complete this topic Medical Devices Implanted Type Area Obstetrician And Gynaecologist Device Identifier Shelf Expiration Date Model / Serial / Lot Port Implantable Infusion Powerport Mri Airguard Chronoflex 8fr 1 Lumen Attachable Cath Intermediate - [id number] Implanted:Qty: 1 on 05/11/2019 by Lito Chatterjee MD at [facility] IMPLANT Left: Chest BARD ACCESS SYSTEMS 11/03/2020 [id number] / [id number] / [id number] Procedures Procedure Name Priority Date/Time Associated Diagnosis Comments DENNIS DIAG RIGHT UNILATERAL DIGITAL W CAD W MARY ANNE Routine 10/12/2019 2:49 PM CDT History of breast cancer from Last 3 Months or Most Recently Relevant to Health Maintenance Results * DENNIS DIAG RIGHT UNILATERAL DIGITAL W CAD W MARY ANNE (10/12/2019 2:49 PM CDT) Anatomical Region Laterality Modality breast Right Mammography 10/12/2019 1:46 PM CDT Narrative 10/13/2019 1:13 PM CDT - DENNIS DIAG RIGHT UNILATERAL DIGITAL W CAD W MARY ANNE - DENNIS US BREAST LIMITED RT UNILATERAL RIGHT DIGITAL DIAGNOSTIC MAMMOGRAM 3D/2D WITH CAD AND TARGETED RIGHT ULTRASOUND WITH MEDIOLATERAL OBLIQUE CRANIOCAUDAL: 10/12/2019 The study was acquired using digital technology and interpreted from soft copy. Current study was also evaluated with [email or web address] version 7.2. CLINICAL: Diagnostic study. 6 month follow up post lumpectomy right breast. Patient states feeling a palpable lump that is marked on imaging for approximately 3 months. COMPARISONS: Comparison is made to exam dated: 03/15/2019 [facility]. BREAST TISSUE:There are scattered fibroglandular densities in the right breast. FINDINGS: RIGHT DIAGNOSTIC MAMMOGRAM: There are postsurgical changes in the right breast. No significant masses, calcifications, or other findings are seen in the breast on the mammogram. Further evaluation was obtained with sonography. TARGETED RIGHT BREAST ULTRASOUND: At the palpable area of concern at the 12 o'clock position of the right breast, 6 cm from the nipple, there is a 9 mm heterogeneous partially cystic focus. The appearance is suggestive of a hematoma but may also be fat necrosis or a complex seroma. These findings will be classified as probably benign. IMPRESSION: OVERALL STUDY BIRADS: 3 PROBABLY BENIGN A follow-up ultrasound in 6 months is recommended to demonstrate stability. The patient has been or will be contacted. Electronically signed by: Mya Patel M.D. ll/:10/12/2019 15:03:41 Manager Utilization Review: Lisa Mkceon (R)(M), [facility] letter sent: Birad 3 Followup Reading location: [facility] OVERALL STUDY BIRADS: 3 Probably benign Procedure Note Mya Patel MD - 10/13/2019 - DENNIS DIAG RIGHT UNILATERAL DIGITAL W CAD W MARY ANNE - DENNIS US BREAST LIMITED RT UNILATERAL RIGHT DIGITAL DIAGNOSTIC MAMMOGRAM 3D/2D WITH CAD AND TARGETED RIGHT ULTRASOUND WITH MEDIOLATERAL OBLIQUE CRANIOCAUDAL: 10/12/2019 The study was acquired using digital technology and interpreted from soft copy. Current study was also evaluated with [employer] version 7.2. CLINICAL: Diagnostic study. 6 month follow up post lumpectomy right breast. Patient states feeling a palpable lump that is marked on imaging for approximately 3 months. COMPARISONS: Comparison is made to exam dated: 03/15/2019 [facility]. BREAST TISSUE:There are scattered fibroglandular densities in the right breast. FINDINGS: RIGHT DIAGNOSTIC MAMMOGRAM: There are postsurgical changes in the right breast. No significant masses, calcifications, or other findings are seen in the breast on the mammogram. Further evaluation was obtained with sonography. TARGETED RIGHT BREAST ULTRASOUND: At the palpable area of concern at the 12 o'clock position of the right breast, 6 cm from the nipple, there is a 9 mm heterogeneous partially cystic focus. The appearance is suggestive of a hematoma but may also be fat necrosis or a complex seroma. These findings will be classified as probably benign. IMPRESSION: OVERALL STUDY BIRADS: 3 PROBABLY BENIGN A follow-up ultrasound in 6 months is recommended to demonstrate stability. The patient has been or will be contacted. Electronically signed by: Mya Patel M.D. ll/:10/12/2019 15:03:41 Manager Utilization Review: Lisa Eaton)(M), [facility] letter sent: Birad 3 Followup Reading location: [facility] OVERALL STUDY BIRADS: 3 Probably benign us Lito Chatterjee MD IMG MAMMO ORDERABLES Final Result from Last 3 Months or Most Recently Relevant to Health Maintenance Insurance [place] Advance Directives Documents on File Type Date Recorded Patient Pacu Nurse Expl anation Power of Vehicle Maintenance Supervisor for Health Care 05/27/2019 11:53 AM POA-HC 05/27/19 Advance Care Planning Discussion 05/27/2019 11:33 AM ACP DISCUSSION RECOR D 05/27/19 Care Teams Public Works Manager Relationship Specialty Start Date End Date Arianne Alarcon APRN, CNP [address] [place] [address] PCP - General Family Medicine 08/29/16 Jack Dukes MD [address] [place] [address] Consulting Physician Neurology 08/21/16 Lito Chatterjee MD [address] [place] [address] Consulting Physician General Surgery 04/27/19 Gustabo Falk MD [address] [address] Consulting Physician Radiation Oncology 04/27/19 Amrit Goddard MD [address] [place] [address] Consulting Physician General Surgery 06/08/19 Phan Grant MD [address] [place] [address] Consulting Physician Medical Oncology 02/16/20
--- OUTSIDE RECORDS SUMMARY | 2024-08-23 18:12 | XMS_ITS | Patient Health Record ---
Author Organization [facility] Address [address] [place] [address] Care Team Providers Care Switchboard Operator Helper Name Role Phone Maximiliano Grady Primary Care Provider [employer] [facility] ROLLY Unavailabl e [phone] Edinson Miller Unavailable [phone] Ro Vicente Unavailable [phone] Natalie Martinez Unavailable [phone] Allergies Allergen (clinical drug ingredient) Drug/Non Drug Allergy documented on EMR Reaction Allergy Type Onset Date Status PENICILLIN Unknown Drug Allergy Active SULFA Unknown Drug Allergy Active Results Component Value Reference Range Notes 12 Panel Urine Drug Screen Reviewed date:10/16/2023 02:55:04 PM Interpretation: Performing Lab: Notes/Report: THC NEG FLORENCE NEG MOP (OPI) NEG AMP POS MET POS BAR NEG BZO NEG MDMA POS MTD NEG OXY NEG PCP NEG BUP NEG Reason For Referral No Information Medications Medication SIG (Take, Route, Frequency, Duration) Notes Start Date End Date Status Wellbutrin SR 100 MG 1 tablet in the mor [place] Orally Once a day for 30 day(s) Active Vivitrol 380 MG 4 ml Intramuscular monthly for 30 day(s) Not-Taking traZODone HCl 100 MG 1 tablet at bedtime Orally Once a day for 30 days Not-Taking Acamprosate Calcium 333 MG 2 tablets Orally Three times a day for 30 day(s) 04/08/2023 Not-Ta wilfredo LaMICtal 100 MG 1 tablet Orally twic e daily for 30 day(s) Not-Taking Gabapentin 300 MG 1 capsule Orally Onc e a day Active Lexapro 20 MG 1 tablet Orally Once a day for 30 day(s) Not-Taking Zolpidem Tartrate 10 MG 1 tablet at bedt katelynn as needed Orally Once a day Active LaMICtal 100 MG 2 tablets Orally Twi ce a day for 30 days Active Lexapro 20 MG 1 tablet Orally Once a day for 30 days Active Vimpat 200 MG 1 tablet Orally Once a day Active ZyrTEC 10 MG 1 tablet Orally Once a day for 30 day(s) Active Social History Tobacco Use: Social History Observation Description Date Details (start date - stop date) Never Smoker NA - NA Sex Assigned At : Social History Observation Description Sex Assigned At Female Dont use, Tobacco Use/Smoking Question Answer Notes Are you a nonsmoker PRAPARE Question Answer Notes Date Completed/Updated: 10/16/2023 What is your current housing situation? I have h ousing Are you worried about losing your housing? No What is the highest level of school that you have finished? 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 Check all that apply Utilities Has lack of transportation k ept you from medical appointments, meetings, work or from getting things needed for daily living? No How often do you see or talk to people that you care about and feel close to? (For example: talking to friends on the phone, visiting friends or family, going to sabianist or club meetings) 3 to 5 times a week How stressed are you? Stress is when someone feels tense, nervous, anxious, or can\t sleep at night because their mind is troubled Somewhat In the past year have you sp ent more than 2 nights in a row in a longterm, snf, mcfp center, or juvenile correctional facility? No Are you a refugee? No What country are you from? [place] Do you feel physically and e motionally safe where you currently live? Yes In the past year, have you b een afraid of your partner or ex-partner? No PRAPARE Score: 2 Problems Problem Type SNOMED Code ICD Code Onset Dates Problem Status W/U Status Risk Notes Problem Major depressive disorder (293358140) Major depressive disorder (F32.9) Active confirmed Problem Psychoactive substance dependence (4655797) Chemical dependency (F19.20) Active confirmed Problem Opioid dependence (01176170) Opiate dependence (F11.20) Active confirmed Problem Disorder caused by alcohol (disorder) (324982778) Alcohol use disorder (F10.99) Active confirmed Problem Substance dependence (1488538370) Substance dependence (F19.20) Active confirmed Problem 48536076 Chemical abuse (F19.10) Active confirmed Vital Signs Heart Rate 117 /min 10/16/2023 Respiratory Rate 16 /min 10/16/2023 Oximetry 97 % 10/16/2023 Blood pressure diastolic 90 mm Hg 10/16/2023 Height 65 in 10/16/2023 Blood pressure systolic 128 mm Hg 10/16/2023 Weight 163.8 lbs 10/16/2023 BMI 27.25 kg/m2 10/16/2023 Encounters Encounter Location Date Provider Diagnosis [address] [address] 10/15/2023 Maximiliano Grady [address] [address] 03/03/2024 Edinson Miller [address] [address] 10/16/2023 Ro Vicente [address] [address] 10/16/2023 Edinson Miller Alcohol use disorder F10.99 ; Overweight (BMI 25.0-29.9) E66.3 and Nutritional counseling Z71.3 Assessments Encounter Date Diagnosis (ICD Code) Assessment Notes Treatment Notes Treatment Clinical Notes Section Notes 10/16/2023 Alcohol use disorder (ICD-10 - F10.99) 10/16/2023 Overweight (BMI 25.0-29.9) (ICD-10 - E66.3) 10/16/2023 Nutritional counseling (ICD-10 - Z71.3) 10/16/2023 Other Provided case management services to address social determinants of health needs and reduce barriers to health care services. Plan Of Treatment Pending Test Test Name Order Date Drug Analysis, Unknown, Qual 09/27/2015 Buprenorphine 09/15/2015 Insurance Providers Payer Name Payer Address Payer Phone Subscriber Number Group Number Insured Name Patient Relationship to Insured Coverage Start Date Coverage End Date [facility] [address] [place] [address] [id number] Lu Christy Self - patient is the insured 5 Medications Administered Medication Instructions Date of Administration Dosage Notes Vivitrol 02/21/2016 380 mg exp December 2017 Manufact by [employer] Pt theresa well. Sample used Vivitrol 03/20/2016 380 mg Exp-01/03/2018 Shaper Setter-P[employer]ep[employer] Client tolerated injection well. Vivitrol 04/17/2016 380 mg Exp December 2017 Manufact by [employer] Pt theresa well. Vivitrol 05/29/2016 380 mg Exp 10/2018 Man ufact by [employer] Pt theresa well. Medical (General) History Medical History History ICD Code seizures from head trauma 2007 gastric ulcer kidney stones 2005 UTI depression alcohol use disorder Surgical History Surgery Date(Month/Year) appendectomy 1994 cystectomy 2001 & 2002 kidney stents 2005 Double mastectomy 2021 Hospitalization History Reason Date(Month/Year) seizure 2013 kidney stent placement 2005 childbirth Feb 2017
--- OUTSIDE RECORDS SUMMARY | 2024-08-23 18:12 | XMS_ITS ---
Author Organization [facility] Address [address] [place] [address] Phone Care Team Providers Care Lead Ruby On Rails Developer Name Role Phone Jack Dukes MD Unavailable [phone] Arianne Alarcon APRN, NETWORK SECURITY ADMINISTRATOR Primary Care Provider [phone] Lito Chatterjee MD Unavailable Gustabo Falk MD Unavailable [phone] Amrit Goddard MD Unavailable Phan Grant MD Unavailable [phone] Active Problems Problem Noted Date Diagnosed Date Acute foot pain, left 08/11/2023 Skin rash 08/11/2023 Screen for colon cancer 08/21/2022 Acute right-sided low back pain with sciatica Sensory neuropathy 02/08/2020 Anxiety 02/08/2020 Peripheral neuropathy due to chemotherapy 2019 S/P vascular surgery 06/08/2019 Carcinoma of breast, estroge n and progesterone receptor negative, right 04/22/2019 Cancer Staging:Clinical stage from 04/27/2019:Stage IIB(cT2, cN0, cM0, G3, ER+, WA-, HER2-) - Signed by Gustabo Falk MD on 04/28/2019 Pathologic stage from 04/27/2019:Stage IIB(pT2, pN1mi(sn), cM0, G3, ER+, WA-, HER2-) - Unsigned Premenopausal patient 04/22/2019 Seizures 10/22/2016 Current Treatment and Therapy Plans No current plan information found. Past Treatment and Therapy Plans ONCOLOGY SUPPORTIVE CARE Plan Name Start Date Discontinue Date Treatment Medications Discontinue Reason Plan Provider Cycles SUPPORT - GRANIX 300 - 3 DAY 9 11/20/2020 No medications scheduled. Therapy Complete Alfred Ochoa MD 2 of 2 cycles started ONCOLOGY TREATMENT Plan Name Start Date Discontinue Date Treatment Medications Discontinue Reason Plan Provider Cycles BREAST - ABRAXANE WEEKLYx4 0 11/20/2020 PACLitaxel-protein bound (ABRAXANE) Therapy Complete Alfred Ochoa MD 1 of 1 cycle started BREAST - AC DOSE DENSE x 4 then Taxol weekly x 8 9 08/01/2022 cyclophosphamide with mesna (CYTOXAN) chemo infusion using solrDOXOrubicin (ADRIAMYCIN)PACLita xel (TAXOL) chemo infusion Not Tolerated Alfred Ochoa MD 5 of 6 cycles started Lifetime Dose Tracking * Chemical Lifetime Dose Automatic Entry Manual Entr y Doxorubicin 238.104 mg/m2 (400 mg) 238.104 mg/m2 (400 mg) 0 mg/m2 (0 mg) Cyclophosphamide 2,381.037 mg/m2 (4,000 mg) 2,381.037 mg/m2 (4,000 mg) 0 mg/m2 (0 mg) Resolved Problems Problem Noted Date Diagnosed Date [...]
--- OUTSIDE RECORDS SUMMARY | 2024-08-23 18:12 | XMS_ITS ---
Author Organization [facility] Address [address] [place] [address] Care Team Providers Care Drum Carrier Name Role Phone Maximiliano Grady Primary Care Provider [phone] [facility], [facility] Adult ROLLY Unavailabl e [phone] Edinson Miller Unavailable [phone] REASON FOR VISIT 2 week F/U-Vivitrol Social History Sex Assigned At : Social History Observation Description Sex Assigned At Female Encounters Encounter Location Date Provider Diagnosis [address] [address] 10/30/2023 Edinson Miller Plan Of Treatment No Information Progress Notes * Lu NGUYỄNDOB: [birth year] (49 yo F)Acc No.[id number]:10/30/2023 UNLOCKED PROGRESS NOTE Patient: Ashley WALKERdi Provider: Sole Miller, MSN, AGPCNP-BC :1975 A ge:48 Y S ex:Female Date:10/30/2023 [facility] Pcp:Maximiliano Grady Subjective: * Chief Complaints: * 1 . 2 week F/U-Vivitrol. * Medical History: Objective: * Vitals: Assessment: Plan: * Treatment: * Care Plan Details* * Electronic signature of Maxime Miller , LISA, [phone] on 08/23/2024 at 06:11 PM [employer] Sign off status: Pending * Provider: Sole Miller, CHARLETTE, AGPCNP-BC Date: 0 10/30/2023 Generated for Printing/Faxing/eTransmitting on: 0 08/23/2024 06:11 PM [employer]
--- OUTSIDE RECORDS SUMMARY | 2024-08-23 18:13 | XMS_ITS | Continuity of Care Document ---
Author Organization [facility] Address [address] [place] [address] [place] [address] Phone Care Team Providers Care Senior Visual Designer Name Role Phone Massimo Herring MD Unavailable Unavailable Allergies, Adverse Reactions, Alerts Substance Reaction Status Criticality Sulfa (Sulfonamide Antibiotics) Active No Information penicillin G Active No Information amoxicillin Active No Information Medications Medication Instructions Dosage Effective Dates (start - stop) Status Comments Lexapro 20 mg tablet take 1 tablet (20MG) by oral route every day 20 MG - Active Xanax 0.5 mg tablet take 1 tablet (0.5MG) by oral route every 4 - 6 hours 0.5 MG - Active avoid driving or operate machines Adderall 10 mg tablet take 1 Tablet (10MG) by oral route 2 times every day 10 MG - Active hydrocodone-acetam inophen 10 mg-325 mg tablet take 1 by Oral route every 6 hours 1 - Active avoid driving o roperate machines, PRN for pain Procedures Procedure Date OFFICE/OUTPATIENT VISIT, NEW Advance Directives Directive Yes / No Effective Date File Name No Information Encounters Encounter Description Practice Location Reason(s) For Visit Diagnoses Date Provider Providers Copied on Encounter [facility], [address] [facility] [address] [facility] [place], [place], [id number], tel:[phone] [facility] Medicine No Information [address] [facility] [place], [address] , [place]. tel:[phone] Referring Provider: Massimo Herring, [address] [place], [place], [id number]. tel:[phone] OFFICE/OUTPAT IENT VISIT, [facility], [address], [place], [id number], tel:[phone] [facility] Seizure (chief complaint) depression (chief complaint) ADD (chief complaint) back pain (chief complaint) Epilepsy, unspecified, without mention of intractable epilepsyLumbago [address] [place], [place], [id number] , . tel:[phone] Referring Provider: Massimo Herring, [address] [place] [place], [place], [address]. tel:[phone] Family History Family Member Type Diagnosis Age At Onset No Information Payers Payer name Insurance type Covered democrat ID Authoriza tion(s) No Information Social History [...]
== END 2024-08-23 16:51 | disposition home or self-care (01) ==
PROVIDERS: Emergency Provider Registered Nurse; PCP Nurse Practitioner Family
DX: S90.32XA Contusion of left foot, initial encounter (principal); W10.9XXA Fall (on) (from) unspecified stairs and steps, initial encounter; F32.A Depression, unspecified; G40.909 Epilepsy, unspecified, not intractable, without status epilepticus; Z85.3 Personal history of malignant neoplasm of breast; Z90.11 Acquired absence of right breast and nipple; Z92.21 Personal history of antineoplastic chemotherapy
CPT/HCPCS: 73630; 99213; G0463

== ENCOUNTER 2024-10-11 16:28 | Emergency (ER) | payer OTHER, SELFPAY ==
[2024-10-11 16:36] VITALS: BP 112/73; PULSE 103; RESP 16; TEMP 37.3; O2SAT 99
[2024-10-11 16:52] LABS: EDSTREPNEGPOS1 Positive (Negative)
[2024-10-11 17:17] LABS: EDCOVIDSCREEN Negative (Negative); EDINFLUASCREEN Negative (Negative); EDINFLUBSCREEN Negative (Negative)
--- NOTE | 2024-10-11 17:25 | ED.URI ---
HPI - URI/Sore Throat General Chief Complaint: Upper Respiratory Infection Stated Complaint: Body Aches/Fever/Sore Throat Time Seen by Provider: 10/11/24 16:40 Source: patient and RN notes reviewed Mode of arrival: ambulatory Limitations: no limitations History of Present Illness HPI Narrative: 49-year-old female presents Express Care complaining sore throat, congestion, left ear pain, fever since yesterday. She has tried Tylenol and ibuprofen without relief. She said she had fevers as high as 103 F at home. She denies any difficulty breathing, difficulty swallowing, or excessive drooling. Related Data Home Medications ?Medication ?Instructions ?Recorded ?Confirmed ?Last Taken ?Type escitalopram oxalate 20 mg tablet 20 mg PO DAILY 12/02/19 04/10/22 Unknown History lamotrigine 200 mg tablet 200 mg PO BID 12/02/19 04/10/22 Unknown History zolpidem 5 mg tablet 5 mg PO HS PRN Sleep 12/02/19 04/10/22 Unknown History bupropion HCl 150 mg tablet,12 hr mg PO 07/08/24 Unknown History sustained-release omeprazole 20 mg capsule,delayed mg 10/11/24 Unknown History release Allergies Allergy/AdvReac Type Severity Reaction Status Date / Time Sulfa (Sulfonamide Allergy Severe Swelling Verified 10/11/24 16:44 Antibiotics) Penicillins Allergy Intermediate Difficulty Verified 10/11/24 16:44 Breathing tramadol Allergy Mild Seizure Verified 10/11/24 16:44 Review of Systems Review of Systems: CONSTITUTIONAL: Denies fever, chills, or sweats. EYES: Denies visual changes, redness, or discharge. ENT: Denies rhinorrhea. positive for congestion, sore throat, or otalgia. CARDIOVASCULAR: Denies chest pain, palpitations, or edema. RESPIRATORY: Denies cough or dyspnea. GASTROINTESTINAL: Denies abdominal pain, nausea, vomiting, or diarrhea. GENITOURINARY: Denies dysuria or hematuria. SKIN: Denies rash or itching. MUSCULOSKELETAL: Denies back pain, joint pain, or myalgia. NEUROLOGIC: Denies headache, numbness, or weakness. PSYCHIATRIC: Denies anxiety or depression. All other systems reviewed are negative, except as documented in HPI. [facility] Past Medical History Medical History Depression Epilepsy History of recent chemotherapy Finished 10/14/19 Breast cancer Surgical History Surgical History History of ovarian cystectomy Bilateral 2001 and 2002 History of tubal ligation Hx of appendectomy 1993 History of lumpectomy of right breast Family History Family History Mother Hypertension Family history of diabetes mellitus in first degree relative Interstitial lung disease Father Asthma Grandparent Carcinoma of colon Social History Social History Smoking status: Never smoker Second hand tobacco smoke exposure: No Alcohol intake: never Living arrangements: with family Gender identity (if verbalized by the patient): Female Comments At the time of my signature, I reviewed and agree with the nursing past medical, surgical, social, and family history. There is no relevant family history pertinent to the patient complaint. Exam Narrative: GENERAL: This is a well-nourished, well-developed adult, in no apparent distress. She is ill-appearing,, nontoxic appearing. HEAD: normocephalic, atraumatic. EYES: Sclera clear/white. Vision is grossly intact. EARS: External ears normal, auditory canals clear and without drainage, right TM without erythema or drainage. Good cone of light. Left TM with mild erythema without drainage and non-bulging.. Hearing grossly intact. NOSE: External nose normal with no obvious nasal discharge, nasal turbinates with erythema, no discharge., no rhinorrhea. THROAT: Mucous membranes moist, posterior pharynx erythematous. No exudate. Uvula is midline. Tonsils 2+ NECK: Neck supple, tender with moderate cervical lymphadenopathy, no masses or thyromegaly. CARDIOVASCULAR: Regular rate and rhythm without murmurs, gallops, or rubs. RESPIRATORY: Clear to auscultation. Breath sounds equal bilaterally. No wheezes, rales, or rhonchi. SKIN: warm, Dry, intact with no suspicious lesions or rash, good texture and turgor. NEURO: awake, alert, and oriented to person, place and time. There were no obvious focal neurologic abnormalities. EXTREMITIES: No joint tenderness, effusion, or edema noted. Course Course Emergency Course: Patient is aware of diagnosis, understands and agrees to treatment plan. Anticipatory guidance given. Patient agrees to follow-up as directed and is aware of reasons to seek care at the emergency department. Portions of this record may have been created with voice recognition software Level of Care: Express Care Visit Vital Signs Vital signs: Vital Signs Temperature 99.2 F 10/11/24 16:36 Pulse Rate 103 H 10/11/24 16:36 Respiratory Rate 16 10/11/24 16:36 Blood Pressure 112/73 10/11/24 16:36 Pulse Oximetry 99 10/11/24 16:36 Oxygen Delivery Room Air 10/11/24 16:36 Temperature 99.2 F 10/11/24 16:36 Pulse Rate 103 H 10/11/24 16:36 Respiratory Rate 16 10/11/24 16:36 Blood Pressure 112/73 10/11/24 16:36 Pulse Oximetry 99 10/11/24 16:36 Oxygen Delivery Room Air 10/11/24 16:36 Reviewed MDM - URI/Sore Throat MDM Narrative Medical decision making narrative: Rapid strep was positive. Her COVID and flu were negative. She is allergic to penicillins and reports she had difficulty breathing with it in the past. Therefore I will treat her strep throat with clarithromycin. Discussed physical exam findings. Advised supportive measures and signs/symptoms to go to the ER. Pt is appropriate for outpt treatment and f/u. Differential Diagnosis Differential diagnosis: Likely upper respiratory infection, viral infection, influenza and pharyngitis (Strep) Lab Data Attestation: I reviewed the patient's lab results. Labs: Lab Results 10/11/24 Range/Units 16:38 POC Influenza A Ag Negative (Negative) POC Influenza B Ag Negative (Negative) POC SARS CoV-2 Ag Negative (Negative) POC Grp A Strep Screen Positive (Negative) Critical Care Time Critical Care Time Critical Care Time: No Discharge Plan Discharge Clinical Impression: Pharyngitis Qualifiers: Pharyngitis/tonsillitis etiology: streptococcus Qualified Code(s): J02.0 - Streptococcal pharyngitis Patient Disposition: Home Condition: Stable Instructions: Antibiotic Form, Strep Throat (ED) Additional Instructions: You tested positive for strep throat. ?Please take the clarithromycin as prescribed until gone. Please take the clarithromycin as directed. ?You will be contagious for 24 hours after starting the medication. ?After 24 hours on antibiotics throw tooth brush away and start using a new one. Wash your sheets and cup/water bottle that is used daily. Do not share drinks. Take Tylenol or Ibuprofen for pain or fever, if able. ?Rest and stay hydrated. ?Follow up with your PCP in 3 days if symptoms are not improving. ?Go to the ER immediately if you develop worsening symptoms such as shortness of breath, difficulty swallowing. ? Patient Language: Citizen Of [place] Prescriptions: New clarithromycin 250 mg tablet 250 mg PO Q12H 10 Days Qty: 20 0RF No Action cetirizine [Zyrtec] 10 mg tablet 10 mg PO DAILY PRN (Reason: angioedema) Qty: 30 0RF zolpidem 5 mg Tablet 5 mg PO HS PRN (Reason: Sleep) lamotrigine 200 mg Tablet 200 mg PO BID escitalopram oxalate 20 mg Tablet 20 mg PO DAILY bupropion HCl 150 mg tablet sustained-release 12 hr PO omeprazole 20 mg capsule,delayed release(DR/EC) Follow-up/Referrals: Agnes,Arianne Parks APN [Primary Care Provider] - Time of Disposition: 17:23
--- OUTSIDE RECORDS SUMMARY | 2024-10-11 18:01 | XMS_ITS | Encounter Summary ---
Author Organization [facility] Address [address] [place] [address] Phone Care Team Providers Care Director Compensation Name Role Phone Jack Dukes MD Unavailable [phone] Arianne Alarcon APRN, PAINTER AIRBRUSH Primary Care Provider [phone] Lito Chatterjee MD Unavailable [phone] Gustabo Falk MD Unavailable [phone] Alfred Ochoa MD Unavailable Amrit Goddard MD Unavailable Phan Grant MD Unavailable [phone] Reason for Visit * Reason Comments Medication Refill Encounter Details Date Type Department Care Team (Late st Contact Info) Description 01/21/2020 Refill [facility] [place] [address] [facility] [place] [address] Jack Dukes MD [address] [place] [address] Medication Refill Social History Tobacco Use Types Packs/Day Years Used Date Smoking Tobacco: Never Smokeless Tobacco: Never Alcohol Use Standard Drinks/Week Comments No 0 (1 standard drink = 0.6 oz pur e alcohol) Comments No Sex and Gender Information Value Date Recorded Sex Assigned at Not on file Legal Sex Female 2:52 AM BOBBIN TRUCKER Gender Identity Not on file Sexual Orientation Not on file 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) documented in this encounter Care Teams Director Compensation Relationship Specialty Start Date End Date Arianne Alarcon APRN, CNP [address] [place] [address] PCP - General Family Medicine 08/29/16 Jack Dukes MD [address] [place] [address] Consulting Physician Neurology 08/21/16 Lito Chatterjee MD [address] [place], [place] [id number] Consulting Physician General Surgery 04/27/19 Gustabo Falk MD [address] [place], [place] [id number] Consulting Physician Radiation Oncology 04/27/19 Alfred Ochoa MD [address] [id number] Consulting Physician Medical Oncology 04/27/19 02/15/20 Amrit Goddard MD [address] [address] Consulting Physician General Surgery 06/08/19 Phan Grant MD [address] [place] [address] Consulting Physician Medical Oncology 02/16/20 documented as of this encounter
--- OUTSIDE RECORDS SUMMARY | 2024-10-11 18:01 | XMS_ITS | Encounter Summary ---
Author Organization [facility] Address [address] [facility] [place] [address] Phone Care Team Providers Care Tool Dispatcher Name Role Phone Jack Dukes MD Unavailable [phone] Arianne Alarcon APRN, CNP Primary Care Provider Lito Chatterjee MD Unavailable Gustabo Falk MD Unavailable [phone] Amrit Goddard MD Unavailable Phan Grant MD Unavailable [phone] Reason for Visit * Reason Comments Medication Refill Encounter Details Date Type Department Care Team (Late st Contact Info) Description 06/09/2020 [facility] [address] [place] [address] Phan Grant MD [address] [place] [address] Medication Refill Social History Tobacco Use Types Packs/Day Years Used Date Smoking Tobacco: Never Smokeless Tobacco: Never Alcohol Use Standard Drinks/Week Comments No 0 (1 standard drink = 0.6 oz pur e alcohol) Comments No Sex and Gender Information Value Date Recorded Sex Assigned at Not on file Legal Sex Female 2:52 AM MINIATURE MODEL MAKER Gender Identity Not on file Sexual Orientation Not on file 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 No / Unsure 06/08/2020 9:05 AM MINIATURE MODEL MAKER documented as of this encounter Miscellaneous Notes * Telephone Encounter - Tanya Hylton APN, CNP - 06/12/2020 1:04 PM MINIATURE MODEL MAKER Filled 2 weeks ago. ATURE MODEL MAKER * Telephone Encounter - Maria Del Carmen Brasher RN - 06/12/2020 1:03 PM CST Request denied; last filled 05/22/20 with 3 refills. ATURE MODEL MAKER * Telephone Encounter - Maria Del Carmen Brasher RN - 06/12/2020 11:44 AM CST Okay to refill Lorazepam for Lu? Last fill 2 weeks ago. ATURE MODEL MAKER documented in this encounter Plan of Treatment Upcoming Encounters Date Type Department Care Team (Late st Contact Info) Description 08/25/2025 2:00 PM MINIATURE MODEL MAKER Office Visit [facility] [address] [place] [address] Phan Grant MD [address] [place] [address] Discharge Disposition: Discharged to home or Selfcare documented as of this encounter Visit Diagnoses Not on filedocumented in this encounter Care Teams Tool Dispatcher Relationship Specialty Start Date End Date Arianne Alarcon APRN, ROMEL [address] [place] [address] PCP - General Family Medicine 08/29/16 Jack Dukes MD [address] [place] [address] Consulting Physician Neurology 08/21/16 Lito Chatterjee MD [address] [place] [address] Consulting Physician General Surgery 04/27/19 Gustabo Falk MD [address] [place] [address] Consulting Physician Radiation Oncology 04/27/19 Amrit Goddard MD [address] [address] [address] Consulting Physician General Surgery 06/08/19 Phan Grant MD [address] [place] [address] Consulting Physician Medical Oncology 02/16/20 documented as of this encounter
--- OUTSIDE RECORDS SUMMARY | 2024-10-11 18:01 | XMS_ITS | Referral Summary ---
Author Organization [facility] Address [address] [place] [address] Care Team Providers Care Clinical Biochemist Name Role Phone Arianne Alarcon NP Primary Care Provider [phone] Derrick Walker MD Unavailable [phone] Encounters Date Type Department Care Team Description 08/04/2024 11:25 AM COLLARETTE SEPARATOR - 08/06/2024 3:15 PM COLLARETTE SEPARATOR Hospital Encounter [facility] Medical Care [address] [place] [address] Daniel Torres MD Sinha, Chandni, MD Alcohol withdrawal syndrome without complication (HCC) (Primary Dx) Discharge Disposition: Discharge to home or self care 08/05/2024 Documentation [facility] Warm Hand Off Program [address] [place], [place] [phone] Min Arellano 08/04/2024 Documentation [facility] Warm Hand Off Program [address] [place], [place] [phone] Ana Nair from Last 3 Months Allergies Active Allergy Reactions Criticality Noted Date Comments Penicillins Anaphylaxis High 03/29/2010 Sulfa (Sulfonamide Antibiotics) Anaphylaxis High Medications lamoTRIgine (LaMICtal) 100 mg tabletIndications :Tonic-Clonic Epilepsy,Grand Mal Take 1 tablet (100 mg total) by mouth 2 (two) times a day Active escitalopram (LEXAPRO) 20 mg tabletIndications :Anxiety with Depression Take 1 tablet (20 mg total) by mouth every morning Active zolpidem (AMBIEN) 5 mg tabletIndications :Sleep-Onset Insomnia Take 2 tablets (10 mg total) by mouth nightly 0 Active lacosamide (VIMPAT) 100 mg tabletIndications :epilepsy Take 1 tablet (100 mg total) by mouth 2 (two) times a day Active therapeutic multivitamin (THERA) tabletIndications :Vitamin Deficiency Prevention Take 1 tablet by mouth every morning Active acetaminophen (TYLENOL) 500 mg tablet Take 1 tablet (500 mg total) by mouth every 6 (six) hours as needed for pain 30 tablet 1 Active diphenhydrAMINE (BENADRYL) 50 mg capsule Take 50 mg by mouth every 6 (six) hours as needed for itching or allergies Active oxyCODONE (ROXICODONE) 5 mg immediate release tabletIndications :Pain Take 1 tablet (5 mg total) by mouth every 6 (six) hours as needed for pain 10 tablet 1 Active buPROPion SR (WELLBUTRIN SR) 150 mg 12 hr tablet Take 1 tablet (150 mg total) by mouth 2 (two) times a day Active chlordiazePOXIDE (LIBRIUM) 10 mg capsule Take 1 capsule (10 mg total) by mouth 3 (three) times a day as needed for anxiety or withdrawal symptoms for up to 5 days 15 capsule 5 Active Active Problems Problem Noted Date Diagnosed Date Alcohol withdrawal syndrome, uncomplicated 08/04 Hx of breast cancer 07/31/2020 Overview (07/31/2020): Added automatically from request for surgery [id number] History of breast cancer 02/10/2020 Overview (02/10/2020): Added automatically from request for surgery [id number] Anxiety 02/08/2020 Sensory neuropathy 02/08/2020 Nodule of [...] drink = 0.6 oz pur e alcohol) [facility] Utilities Answer Date Recorded In the past 12 months has [employer], gas, oil, or water [employer] threatened to shut off services in your [...] week 08/05/2024 How often [facility] attend [facility]? More than 4 times per year 08/05/2024 Do you belong to any clubs o r organizations such as zoroastrianism groups, unions, fraternal or athletic groups, or [...] any time in the past 12 m onths, were you homeless or living in a senior living (including now)? No 08/05/2024 Personal Safety Answer Date Recorded Have you ever been in or are you currently in a harmful physical or emotional relationship or is someone making you feel afraid or unsafe? Denies 08/04/2024 Comments No Sex and Gender Information Value Date Recorded Sex Assigned at Not on file Legal Sex Female 12:33 AM COLLARETTE SEPARATOR Gender Identity Female 06/06/2021 8:34 AM COLLARETTE SEPARATOR Sexual Orientation Straight 06/06/2021 8: 34 AM COLLARETTE SEPARATOR Last Filed Vital Signs Vital Sign Reading Time Taken Comments Blood Pressure 100/80 08/06/2024 7:12 AM COLLARETTE SEPARATOR Pulse 94 08/06/2024 7:12 AM COLLARETTE SEPARATOR Temperature 36.4 C (97.6 F) 08/06/2024 7:12 AM COLLARETTE SEPARATOR Respiratory Rate 18 08/06/2024 7:12 AM COLLARETTE SEPARATOR Oxygen Saturation 94% 08/06/2024 7:12 AM COLLARETTE SEPARATOR Inhaled Oxygen Concentration - - Weight 77.1 kg (170 lb) 08/04/2024 6:27 PM COLLARETTE SEPARATOR Height 165.1 cm (5' 5 ) 08/04/2024 6:27 PM COLLARETTE SEPARATOR Body Mass Index 28.29 08/04/2024 6:27 PM COLLARETTE SEPARATOR Plan of Treatment Not on file Medical Devices Implanted Type Area Line Haul Owner Operator Device Identifier Shelf Expiration Date Model / Serial / Lot [employer] 68-120 Natrelle 9cm Style 68mp Smooth Anterior Diaphragm Valve P3cm Latex Free - [id number] - [id number] Implanted:Qty: 1 on 03/16/2021 by Derrick Walker MD at [facility] Breast Left: Breast [employer] 04/09/2024 68-120 / [id number] / [employer] [id number] Alloderm Select [id number] Allograft Regenerative Freeze Dried - [id number] - [id number] Implanted:Qty: 1 on 12/24/2019 by Derrick Walker MD at [facility] Left: Breast [employer] 11/03/2020 [id number] / [id number] / [employer] [id number] Alloderm Select [id number] Allograft Regenerative Freeze Dried - [id number] - [id number] Implanted:Qty: 1 on 12/24/2019 by Derrick Walker MD at [facility] Right: Breast [employer] 10/04/2020 [id number] / [id number] / [employer] Allian [id number] [place] Microvascular 2.5mm Ring Pin Protective Cover Jaw Assembly Latex Free - [id number] Implanted:Qty: 1 on 04/06/2020 by Derrick Walker MD at [facility] Right: Breast [employer] Allian 10/13/2024 [id number] / / [employer] Allian [id number] [place] Microvascular 2.5mm Ring Pin Protective Cover Jaw Assembly Latex Free - [id number] Implanted:Qty: 1 on 04/06/2020 by Derrick Walker MD at [facility] Left: Breast [employer] Allian 10/23/2024 [id number] / / [id number] [employer] 68-120 Natrelle 9cm Style 68mp Smooth Anterior Diaphragm Valve P3cm Latex Free - [id number] - [id number] Implanted:Qty: 1 on 03/16/2021 by Derrick Walker MD at [facility] Left: Breast [employer] 08/30/2023 68-120 / [id number] / Explanted Type Area Line Haul Owner Operator Device Identifier Shelf Expiration Date Model / Serial / Lot S[employer] Allox2-[id number] Allox2 15x13.8cm Texture Integrate Port Breast P6.4-7.9cm Full - [id number] Implanted:Qty: 1 on 12/24/2019 by Derrick Walker MD at [facility] Explanted:Qty: 1 on 04/06/2020 by Derrick Walker MD at [facility] Breast Left: Breast [employer] 11/03/2024 [id number] / / [employer] Allox2-[id number] Allox2 15x13.8cm Texture Integrate Port Breast P6.4-7.9cm Full - [id number] Implanted:Qty: 1 on 12/24/2019 by Derrick Walker MD at [facility] Explanted:Qty: 1 on 04/06/2020 by Derrick Walker MD at [facility] Right: Breast [employer] 11/03/2024 [id number] [id number] / / Procedures Procedure Name Priority Date/Time Associated Diagnosis Comments XR SHOULDER RIGHT 2 OR MORE VIEWS IP Routine 08/06/2024 9:39 AM COLLARETTE SEPARATOR EGFR Routine 08/06/2024 5:36 AM COLLARETTE SEPARATOR DIFFERENTIAL AUTO Routine 08/06/2024 5:3 6 AM COLLARETTE SEPARATOR CBC WITH AUTO DIFFERENTIAL Routine 08/06/2024 5:36 AM COLLARETTE SEPARATOR PHOSPHORUS Routine 08/06/2024 5:36 AM COLLARETTE SEPARATOR MAGNESIUM Routine 08/06/2024 5:36 AM COLLARETTE SEPARATOR BASIC METABOLIC PANEL Routine 08/06/2024 5:36 AM COLLARETTE SEPARATOR PRO B-TYPE NATRIURETIC PEPTIDE Add-On 08/05/2024 5:22 AM COLLARETTE SEPARATOR EGFR Routine 08/05/2024 5:22 AM COLLARETTE SEPARATOR DIFFERENTIAL AUTO Routine 08/05/2024 5:2 2 AM COLLARETTE SEPARATOR CBC WITH AUTO DIFFERENTIAL Routine 08/05/2024 5:22 AM COLLARETTE SEPARATOR PHOSPHORUS Routine 08/05/2024 5:22 AM COLLARETTE SEPARATOR MAGNESIUM Routine 08/05/2024 5:22 AM COLLARETTE SEPARATOR BASIC METABOLIC PANEL Routine 08/05/2024 5:22 AM COLLARETTE SEPARATOR URINALYSIS, MICROSCOPIC ONLY STAT 08/05/2024 3:22 AM COLLARETTE SEPARATOR URINALYSIS AND REFLEX TO MICROSCOPIC AND CULTURE STAT 08/05/2024 3:22 AM COLLARETTE SEPARATOR US VEIN DUPLEX LOWER EXTREMITY LEFT LIMITED IP Routine 08/04/2024 5:23 PM COLLARETTE SEPARATOR ECG 12-LEAD Routine 08/04/2024 2:14 PM COLLARETTE SEPARATOR PRO B-TYPE NATRIURETIC PEPTIDE STAT 08/04/2024 11:34 AM COLLARETTE SEPARATOR EGFR STAT 08/04/2024 11:34 AM COLLARETTE SEPARATOR DIFFERENTIAL AUTO STAT 08/04/2024 11: 34 AM COLLARETTE SEPARATOR MAGNESIUM Routine 08/04/2024 11:34 AM COLLARETTE SEPARATOR LIPASE STAT 08/04/2024 11:34 AM COLLARETTE SEPARATOR ETHANOL STAT 08/04/2024 11:34 AM COLLARETTE SEPARATOR COMPREHENSIVE METABOLIC PANEL STAT 08/04/2024 11:34 AM COLLARETTE SEPARATOR CBC WITH AUTO DIFFERENTIAL STAT 08/04/2024 11:34 AM COLLARETTE SEPARATOR INFLUENZA A/B, RSV, AND COVID-19 PCR Routine 08/04/2024 11:34 AM COLLARETTE SEPARATOR DIAGNOSTIC MAMMOGRAM BILATERAL W MARY ANNE Routine 05/11/2015 11:49 AM COLLARETTE SEPARATOR from Last 3 Months or Most Recently Relevant to Health Maintenance Results * XR Shoulder Right 2 or More Views (08/06/2024 9:39 AM COLLARETTE SEPARATOR) Anatomical Region Laterality Modality Upper Extremities, Shoulder Right Comp uted Radiography 08/06/2024 12:1 9 PM COLLARETTE SEPARATOR Narrative 08/06/2024 12:22 PM COLLARETTE SEPARATOR EXAM DESCRIPTION: XR SHOULDER RIGHT 2 OR [...] Anurag Almeida M.D. MZ: ALCIDES Report ID: [id number] Reading Location: [id number] Procedure Note Anurag Almeida MD - 08/06/2024 [...] Anurag Almeida M.D. MZ: ALCIDES Report ID: [id number] Reading Location: [place] [address] China Silva MD IMG XR PROCEDURES Final Result * eGFR (08/06/2024 5:36 AM COLLARETTE SEPARATOR) eGFR 78 >=60 mL/min/1. 73 m2 Comment: [...] last reviewed 2021. Blood 08/06/2024 5:36 AM COLLARETTE SEPARATOR 08/06/2024 6:19 AM COLLARETTE SEPARATOR China Silva MD LAB BLOOD ORDERABLES Final Resu lt [facility] ([place]) 1 [facility] [place] [address] * Differential, auto (08/06/2024 5:36 AM COLLARETTE SEPARATOR) Neutrophil abs 2.4 1.5 - 6.5 K/cumm [...] revised on 2017. Blood 08/06/2024 5:36 AM COLLARETTE SEPARATOR 08/06/2024 6:19 AM COLLARETTE SEPARATOR us China Silva MD LAB BLOOD ORDERABLES Final Resu lt [facility] ([place]) 1 [facility] [place] [address] * (ABNORMAL) CBC with auto differential (08/06/2024 5:36 AM COLLARETTE SEPARATOR) WBC 4.5 3.8 - 9.9 K/cumm Hgb 12.2 11.9 - 15.5 g/dL [facility] ([place]) Hct 35.9 35.6 - 45.5 [...] RDW SD 42.0 35.7 - 48.1 fL [facility] ([place]) NRBC abs 0.00 0.00 - 0.01 K/cumm [facility] ([place]) Blood 08/06/2024 5:36 AM COLLARETTE SEPARATOR 08/06/2024 6:19 AM COLLARETTE SEPARATOR us China Silva MD LAB BLOOD ORDERABLES Final Resu lt [facility] ([place]) [address] [place] [address] * Phosphorus (08/06/2024 5:36 AM COLLARETTE SEPARATOR) Phosphorus, pl 4.4 2.3 - 4.5 mg/dL Blood 08/06/2024 5:36 AM COLLARETTE SEPARATOR 08/06/2024 6:19 AM COLLARETTE SEPARATOR China Silva MD LAB BLOOD ORDERABLES Final Resu lt [facility] ([place]) [address] [place] [address] * Magnesium (08/06/2024 5:36 AM COLLARETTE SEPARATOR) Pathologist [facility] Magnesium 2.0 1.4 - 2.5 mg/dL Blood 08/06/2024 5:36 AM COLLARETTE SEPARATOR 08/06/2024 6:19 AM COLLARETTE SEPARATOR China Silva MD LAB BLOOD ORDERABLES Final Resu lt [facility] ([place]) [address] [place] [address] * Basic metabolic panel (08/06/2024 5:36 AM COLLARETTE SEPARATOR) Pathologist [facility] Sodium 139 135 - 145 mmol/L Potassium, pl 3.8 3.3 - 4.9 mmol/L [facility] ([place]) Chloride 104 97 - 110 mmol/L [facility] ([place]) CO2 25 22 - 32 mmol/L [facility] ([place]) Anion gap 11 2 - 15 mmol/L [facility] ([place]) BUN 6 6 - 25 mg/dL [facility] ([place]) Creatinine 0.91 0.60 - 1.10 mg/dL [facility] ([place]) Glucose 98 70 - 199 mg/dL [facility] ([place]) Comment: Interpretive Data Fasting glucose >/= [...] 2022. Calcium 8.9 8.5 - 10.3 mg/dL [facility] ([place]) Blood 08/06/2024 5:36 AM COLLARETTE SEPARATOR 08/06/2024 6:19 AM COLLARETTE SEPARATOR us China Silva MD LAB BLOOD ORDERABLES Final Resu lt [facility] ([place]) 1 [facility] [place] [address] * eGFR (08/05/2024 5:22 AM COLLARETTE SEPARATOR) eGFR 70 >=60 mL/min/1. 73 m2 Comment: [...] last reviewed 2021. Blood 08/05/2024 5:22 AM COLLARETTE SEPARATOR 08/05/2024 5:39 AM COLLARETTE SEPARATOR us China Silva MD LAB BLOOD ORDERABLES Final Resu lt [facility] ([place]) 1 [facility] [place] [address] * Differential, auto (08/05/2024 5:22 AM COLLARETTE SEPARATOR) Neutrophil abs 2.2 1.5 - 6.5 K/cumm [...] revised on 2017. Blood 08/05/2024 5:22 AM COLLARETTE SEPARATOR 08/05/2024 5:39 AM COLLARETTE SEPARATOR us China Silva MD LAB BLOOD ORDERABLES Final Resu lt [facility] ([place]) 1 [facility] [place] [address] * Pro B-type natriuretic peptide (08/05/2024 5:22 AM COLLARETTE SEPARATOR) NT-proBNP 241 <=300 pg/mL Comment: Interpretive Comments: [...] Revised Date: 2018. Blood 08/05/2024 5:22 AM COLLARETTE SEPARATOR 08/05/2024 9:21 AM COLLARETTE SEPARATOR us China Silva MD LAB BLOOD ORDERABLES Final Resu lt [facility] ([place]) 1 [facility] [place] [address] * (ABNORMAL) CBC with auto differential (08/05/2024 5:22 AM COLLARETTE SEPARATOR) WBC 4.2 3.8 - 9.9 K/cumm Hgb [...] [facility] ([place]) Blood 08/05/2024 5:22 AM COLLARETTE SEPARATOR 08/05/2024 5:39 AM COLLARETTE SEPARATOR us China Silva MD LAB BLOOD ORDERABLES Final Resu lt [facility] ([place]) 1 [facility] [place] [address] * Phosphorus (08/05/2024 5:22 AM COLLARETTE SEPARATOR) Pathologist [facility] Phosphorus, pl 3.9 2.3 - 4.5 mg/dL Blood 08/05/2024 5:22 AM COLLARETTE SEPARATOR 08/05/2024 5:39 AM COLLARETTE SEPARATOR China Silva MD LAB BLOOD ORDERABLES Final Resu lt [facility] ([place]) 1 [facility] [place] [address] * Magnesium (08/05/2024 5:22 AM COLLARETTE SEPARATOR) Pathologist [facility] Magnesium 2.0 1.4 - 2.5 mg/dL Blood 08/05/2024 5:22 AM COLLARETTE SEPARATOR 08/05/2024 5:39 AM COLLARETTE SEPARATOR China Silva MD LAB BLOOD ORDERABLES Final Resu lt Performing Organization Address City/[facility] Co de Phone Number [facility] ([place] 1 [facility] [place] [employer] [place] [address] * (ABNORMAL) Basic metabolic panel (08/05/2024 5:22 AM COLLARETTE SEPARATOR) Pathologist [facility] Sodium 140 135 - 145 mmol/L Potassium, pl 4.3 3.3 - 4.9 mmol/L [facility] ([place]) Chloride 108 97 - 110 mmol/L [facility] ([place]) CO2 25 22 - 32 mmol/L [facility] ([place]) Anion gap 8 2 - 15 mmol/L [facility] ([place]) BUN 5(L) 6 - 25 mg/dL [facility] ([place]) Creatinine 0.99 0.60 - 1.10 mg/dL [facility] ([place]) Glucose 96 70 - 199 mg/dL [facility] ([place]) Comment: Interpretive Data Fasting glucose [...] [facility] ([place]) Blood 08/05/2024 5:22 AM COLLARETTE SEPARATOR 08/05/2024 5:39 AM COLLARETTE SEPARATOR us China Silva MD LAB BLOOD ORDERABLES Final Resu lt [facility] ([place]) 1 [facility] [place] [address] * (ABNORMAL) Urinalysis reflex to microscopic and culture Urine (08/05/2024 3:22 AM COLLARETTE SEPARATOR) Color, ur Yellow Yellow Clarity, ur Clear [...] acid stone formation. Source: [facility] [employer] Current Interpretive Data was last revised on [...] [facility] ([place]) Urine 08/05/2024 3:22 AM COLLARETTE SEPARATOR 08/05/2024 3:26 AM COLLARETTE SEPARATOR China Silva MD LAB MICROBIOLOGY - [facility] ROBYN CHASE Final Result Performing Organization Address [facility] Co de Phone Number [facility] ([place]) 1 [facility] [place] [address] * (ABNORMAL) Urinalysis, microscopic only (08/05/2024 3:22 AM COLLARETTE SEPARATOR) WBC, ur 6-10(A) 0 - 5 /HPF RBC, ur 3-5(A) 0 - 2 /HPF [facility] ([place]) Epithelial cells, squamous, ur 1-5 0 - 5 /HPF [facility] ([place]) Culture Reflex Comment Reflex conditions for urine culture (WBC >10) not met. [facility] ([place]) Urine 08/05/2024 3:22 AM COLLARETTE SEPARATOR 08/05/2024 3:26 AM COLLARETTE SEPARATOR Daniel Torres MD LAB URINE ORDERABLES Final R esult Performing Organization Address [facility] Co de Phone Number [facility] ([place]) 1 [facility] [place] [address] * US VEIN DUPLEX LOWER EXTREMITY LEFT LIMITED, UNILATERAL (08/04/2024 5:23 PM COLLARETTE SEPARATOR) Anatomical Region Laterality Modality Vascular Left Ultrasound 08/04/2024 7:57 PM COLLARETTE SEPARATOR Narrative 08/04/2024 7:58 PM COLLARETTE SEPARATOR EXAM DESCRIPTION: US VEIN DUPLEX LOWER EXTREMITY [...] Feliciano Abraham M.D. NS: NS Report ID: [id number] Reading Location: [id number] Procedure Note Feliciano Abraham MD - 08/04/2024 [...] Feliciano Abraham M.D. NS: NS Report ID: [id number] Reading Location: [id number] China Silva MD [facility] US PROCEDURES Final Result * ECG 12 lead (08/04/2024 2:14 PM COLLARETTE SEPARATOR) 08/04/2024 2:14 PM COLLARETTE SEPARATOR Narrative [facility] - 08/04/2024 4:33 PM COLLARETTE SEPARATOR Vent Rate: 92 bpm RR Interval: 646 msec PA Interval: 219 msec QRS Duration: 73 msec QT Interval: 358 msec QTC Interval: 408 msec P-R-T [place]: 37 - 18 - 35 degrees IMPRESSION: SINUS RHYTHM WITH FIRST DEGREE AV BLOCK LOW QRS VOLTAGE IN PRECORDIAL LEADS [QRS DEFLECTION < 1.0 mV IN CHEST LEADS] ABNORMAL ECG Electronically Signed By: Damion Rodriguez MD us Daniel Torres MD ECG ORDERABLES Final Result [facility] * Influenza A/B, RSV, and COVID-19 PCR Nasopharyngeal (08/04/2024 11:34 AM COLLARETTE SEPARATOR) COVID-19 RNA Negative Negative Influenza A RNA Negative Negative [facility] ([place]) Influenza B RNA Negative Negative [facility] ([place]) RSV RNA Negative Negative [facility] ([place]) Comment: Interpretive data: Testing performed by [facility]. This test is performed using the [employer] Xpert Xpress CoV-2/Flu/RSV plus assay. This is a multiplex, real- time reverse transcriptase PCR assay intended for the qualitative detection of nucleic acid from SARS-CoV-2, influenza A, influenza B, and respiratory syncytial virus. This assay has been cleared by the [place] Food and Drug administration. The performance characteristics have been verified by the [facility]. Results must be considered in the clinical context, and a negative result does not rule out infection. Interpretive Data last revised 2023 Nasopharyngeal 08/04/2024 11 :34 AM COLLARETTE SEPARATOR 08/04/2024 11:39 AM COLLARETTE SEPARATOR Narrative [facility] ([place]) - 08/04/2024 12:23 PM COLLARETTE SEPARATOR Is the Patient experiencing symptoms consistent with COVID?->Unknown Flor Sanchez MD LAB MICROBIOLOGY - GENERA L ORDERABLES Final Result Performing Organization Address City/[facility]/ZIP Co de Phone Number [facility]) 1 [facility] [place] [address] * eGFR (08/04/2024 11:34 AM COLLARETTE SEPARATOR) eGFR 71 >=60 mL/min/1. 73 m2 Comment: [...] reviewed 2021. Blood 08/04/2024 11:3 4 AM COLLARETTE SEPARATOR 08/04/2024 11:39 AM COLLARETTE SEPARATOR us Daniel Torres MD LAB BLOOD ORDERABLES Final R esult [facility] ([place]) 1 [facility] [place] [address] * Differential, auto (08/04/2024 11:34 AM COLLARETTE SEPARATOR) Neutrophil abs 3.4 1.5 - 6.5 K/cumm [...] revised on 2017. Monocyte pct 9.0 % [facility] ([place]) Comment: Interpretive Data Percent cell [...] revised on 2017. Basophil pct 0.4 % [facility] ([place]) Comment: Interpretive Data Percent cell count reference ranges are not reported, since discordance with absolute values may lead to misinterpretation of CBC data. Current Interpretive Data was last revised on 2017. Blood 08/04/2024 11:3 4 AM COLLARETTE SEPARATOR 08/04/2024 11:40 AM COLLARETTE SEPARATOR us Daniel Torres MD LAB BLOOD ORDERABLES Final R esult [facility] ([place]) 1 [facility] [place] [address] * Pro B-type natriuretic peptide (08/04/2024 11:34 AM COLLARETTE SEPARATOR) NT-proBNP 278 <=300 pg/mL Comment: Interpretive Comments: [...] Date: 2018. Blood 08/04/2024 11:3 4 AM COLLARETTE SEPARATOR 08/04/2024 12:48 PM COLLARETTE SEPARATOR Daniel Torres MD LAB BLOOD ORDERABLES Final R esult [facility] ([place]) 1 [facility] Department of Laboratories [place], [place] [id number] * (ABNORMAL) CBC with auto differential (08/04/2024 11:34 AM COLLARETTE SEPARATOR) WBC 5.5 3.8 - 9.9 K/cumm Hgb [...] RDW CV 12.4 11.1 - 14.9 % [facility] ([place]) RDW SD 42.6 35.7 - 48.1 fL [facility] ([place]) NRBC abs 0.00 0.00 - 0.01 K/cumm [facility] ([place]) Blood 08/04/2024 11:3 4 AM COLLARETTE SEPARATOR 08/04/2024 11:40 AM COLLARETTE SEPARATOR Daniel Torres MD LAB BLOOD ORDERABLES Final R esult [facility] ([place]) 1 [facility] [place] [address] * Magnesium (08/04/2024 11:34 AM COLLARETTE SEPARATOR) Magnesium 1.9 1.4 - 2.5 mg/dL Blood 08/04/2024 11:3 4 AM COLLARETTE SEPARATOR 08/04/2024 11:39 AM COLLARETTE SEPARATOR Daniel Torres MD LAB BLOOD ORDERABLES Final R esult Performing Organization Address City/[facility] Co de Phone Number [facility] ([place]) 1 [facility] [employer] [place] [address] * Lipase (08/04/2024 11:34 AM COLLARETTE SEPARATOR) Lipase 15 10 - 99 Units/L Blood 08/04/2024 11:3 4 AM COLLARETTE SEPARATOR 08/04/2024 11:39 AM COLLARETTE SEPARATOR Daniel Torres MD LAB BLOOD ORDERABLES Final R esult Performing Organization Address City/[facility]/ZIP Co de Phone Number [facility] ([place]) 1 [facility] [employer] [place] [address] * (ABNORMAL) Ethanol (08/04/2024 11:34 AM COLLARETTE SEPARATOR) Ethanol 37(H) <=10 mg/dL Comment: Interpretive Data Legal limit of intoxication > or = 80 mg/dL Levels > or = 400 mg/dL are potentially TOXIC. Current interpretive data was last revised on 2018. Blood 08/04/2024 11:3 4 AM COLLARETTE SEPARATOR 08/04/2024 11:39 AM COLLARETTE SEPARATOR us Daniel Torres MD LAB BLOOD ORDERABLES Final R esult [facility] ([place]) 1 [facility] [place] [address] * Comprehensive metabolic panel (08/04/2024 11:34 AM COLLARETTE SEPARATOR) Sodium 140 135 - 145 mmol/L Potassium, pl 3.5 3.3 - 4.9 mmol/L [facility] ([place]) Chloride 103 97 - 110 mmol/L [facility] ([place]) CO2 25 22 - 32 mmol/L [facility] ([place]) Anion gap 12 2 - 15 mmol/L [facility] ([place]) BUN 6 6 - 25 mg/dL [facility] ([place]) Creatinine 0.98 0.60 - 1.10 mg/dL [facility] ([place]) Glucose 121 70 - 199 mg/dL [facility] ([place]) [...] [facility] ([place]) Blood 08/04/2024 11:3 4 AM COLLARETTE SEPARATOR 08/04/2024 11:39 AM COLLARETTE SEPARATOR us Daniel Torres MD LAB BLOOD ORDERABLES Final R esult [facility] ([facility]) 1 [facility] [place] [address] * DIAGNOSTIC MAMMOGRAM BILATERAL W MARY ANNE (05/11/2015 11:49 AM COLLARETTE SEPARATOR) Anatomical Region Laterality Modality Breast Bilateral Mammography 05/11/2015 11:4 9 AM COLLARETTE SEPARATOR Narrative 05/11/2015 11:11 PM COLLARETTE SEPARATOR SCREENING MAMM W MARY ANNE BI Acc#: [id number] Screening Mamm Bi Acc#: [id number] DATE OF EXAM: May 11 2015 Performed [...] Fax: -- Attending Fax: -- Attending ID: [id number] Requesting ID: [id number] Report To 1 ID: [id number] Report To 1 Name: ROD DUQUE Report To 1 FAX: -- NextGen Order #: Procedure Note Provider, MD Manuelito - 10/31/2016 SCREENING MAMM W MARY ANNE BI Acc#: [id number] Screening Mamm Bi Acc#: [id number] DATE OF EXAM: May 11 2015 Performed [...] Fax: -- Attending Fax: -- Attending ID: [id number] Requesting ID: [id number] Report To 1 ID: [id number] Report To 1 Name: ROD DUQUE Report To 1 FAX: -- NextGen Order #: Historical Provider MD KUHN MAMMO PROCEDURES Margarita l Result from Last 3 Months or Most Recently Relevant to Health Maintenance Insurance [facility] Advance Directives For more information, please contact: [phone] * Full Code (Latest Code Status on File) Date Activated Date Inactivated Comments 08/04/2024 6:28 PM 08/06/2024 8:23 PM * Full Code Date Activated Date Inactivated Comments 08/04/2024 6:28 PM 08/04/2024 6:28 PM * Full Code Date Activated Date Inactivated Comments 04/06/2020 8:35 PM 04/10/2020 6:28 PM * Full Code Date Activated Date Inactivated Comments 12/24/2019 7:19 PM 12/25/2019 7:34 PM Care Teams Clinical Biochemist Relationship Specialty Start Date End Date Alarcon, Arianne Acosta NP [address] [place] [address] PCP - General 04/24/17 Derrick Walker MD [address] [place] [address] Consulting Physician Plastic Surgery 12/25/19
--- OUTSIDE RECORDS SUMMARY | 2024-10-11 18:01 | XMS_ITS | Encounter Summary ---
Author Organization [facility] Address [address] [facility] [place] [address] Phone Care Team Providers Care Sap Bpc Architect Name Role Phone Jack Dukes MD Unavailable [phone] Arianne Alarcon APRN, TUBE BUFFER Primary Care Provider Lito Chatterjee MD Unavailable [phone] Gustabo Falk MD Unavailable [phone] Alfred Ochoa MD Unavailable Amrit Goddard MD Unavailable Phan Grant MD Unavailable [phone] Reason for Visit * Reason Comments Medication Refill Encounter Details Date Type Department Care Team (Late st Contact Info) Description 01/07/2020 [facility] [address] [place] [address] Alfred Ochoa MD [address] [place] [address] Medication Refill Social History Tobacco Use Types Packs/Day Years Used Date Smoking Tobacco: Never Smokeless Tobacco: Never Alcohol Use Standard Drinks/Week Comments No 0 (1 standard drink = 0.6 oz pur e alcohol) Comments No Sex and Gender Information Value Date Recorded Sex Assigned at Not on file Legal Sex Female 2:52 AM SPINNING BATH PERSON Gender Identity Not on file Sexual Orientation Not on file 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 Not on file [...] st Contact Info) Description 08/25/2025 2:00 PM SPINNING BATH PERSON [facility] [address] [place] [address] Phan Grant MD [address] [place] [address] Discharge Disposition: Discharged to home or Selfcare documented as of this encounter Visit Diagnoses Not on filedocumented in this encounter Care Teams Sap Bpc Architect Relationship Specialty Start Date End Date Arianne Alarcon APRN, TUBE BUFFER [address] [place] [address] PCP - General Family Medicine 08/29/16 Jack Dukes MD [address] [place] [address] Consulting Physician Neurology 08/21/16 Lito Chatterjee MD [address] [place] [address] Consulting Physician General Surgery 04/27/19 Gustabo Falk MD [address] [place] [address] Consulting Physician Radiation Oncology 04/27/19 Alfred Ochoa MD [address] [place] [address] Consulting Physician Medical Oncology 04/27/19 02/15/20 Amrit Goddard MD [address] [address] Consulting Physician General Surgery 06/08/19 Phan Grant MD [address] [place] [address] Consulting Physician Medical Oncology 02/16/20 documented as of this encounter
--- OUTSIDE RECORDS SUMMARY | 2024-10-11 18:01 | XMS_ITS | Encounter Summary ---
Author Organization [facility] Address [address] [place] [address] Phone Care Team Providers Care Job Analysis Manager Name Role Phone Jack Dukes MD Unavailable [phone] Arianne Alarcon APRN, PUBLIC RELATIONS REPRESENTATIVE Primary Care Provider [phone] Lito Chatterjee MD Unavailable [phone] Gustabo Falk MD Unavailable [phone] Amrit Goddard MD Unavailable Phan Grant MD Unavailable [phone] Reason for Visit * Reason Comments Medication Refill Encounter Details Date Type Department Care Team (Late st Contact Info) Description 11/17/2020 Refill [facility] - Neurology - [place] [address] [place] [address] Jack Dukes MD [address] [place] [address] Medication Refill Social History Tobacco Use Types Packs/Day Years Used Date Smoking Tobacco: Never Smokeless Tobacco: Never Alcohol Use Standard Drinks/Week Comments No 0 (1 standard drink = 0.6 oz pur e alcohol) Comments No Sex and Gender Information Value Date Recorded Sex Assigned at Not on file Legal Sex Female 2:52 AM SLEEVE SETTER SAFETY STITCH Gender Identity Not on file Sexual Orientation Not on file 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 Not on file [...] st Contact Info) Description 08/25/2025 2:00 PM SLEEVE SETTER SAFETY STITCH Office Visit [facility] Oncology Services [address] [place] [address] Phan Grant MD [address] [place] [address] Discharge Disposition: Discharged to home or Selfcare documented as of this encounter Visit Diagnoses Diagnosis Seizures (HCC) Other convulsions documented in this encounter Care Teams Job Analysis Manager Relationship Specialty Start Date End Date Arianne Alarcon APRN, CNP [address] [place] [address] PCP - General Family Medicine 08/29/16 Jack Dukes MD [address] [place] [address] Consulting Physician Neurology 08/21/16 Lito Chatterjee MD [address] [place] [address] Consulting Physician General Surgery 04/27/19 Gustabo Falk MD [address] [facility] [address] Consulting Physician Radiation Oncology 04/27/19 Amrit Goddard MD [address] [address] Consulting Physician General Surgery 06/08/19 Phan Grant MD [address] [place] [address] Consulting Physician Medical Oncology 02/16/20 documented as of this encounter
--- OUTSIDE RECORDS SUMMARY | 2024-10-11 18:01 | XMS_ITS | Encounter Summary ---
Author Organization [facility] Address [address] [place] [address] Phone Care Team Providers Care Nuclear Unit Operator Name Role Phone Jack Dukes MD Unavailable [phone] Arianne Alarcon APRN, ENVIRONMENTAL SERVICES WORKER Primary Care Provider [phone] Lito Chatterjee MD Unavailable [phone] Gustabo Falk MD Unavailable [phone] Amrit Goddard MD Unavailable Phan Grant MD Unavailable [phone] Reason for Visit * Reason Comments Medication Refill Encounter Details Date Type Department Care Team (Late st Contact Info) Description 03/22/2022 Refill [facility] - [facility] [address] [place] [address] Jack Dukes MD [address] [place] [address] Medication Refill Social History Tobacco Use Types Packs/Day Years Used Date Smoking Tobacco: Never Smokeless Tobacco: Never Alcohol Use Standard Drinks/Week Comments No 0 (1 standard drink = 0.6 oz pur e alcohol) Comments No Sex and Gender Information Value Date Recorded Sex Assigned at Not on file Legal Sex Female 2:52 AM POWDER ROOM ATTENDANT Gender Identity Not on file Sexual Orientation Not on file 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 Oncology Services [address] [place] [address] Phan Grant MD [address] [place] [address] Discharge Disposition: Discharged to home or Selfcare documented as of this encounter Visit Diagnoses Diagnosis Seizures (HCC) Other convulsions documented in this encounter Care Teams Nuclear Unit Operator Relationship Specialty Start Date End Date Arianne Alarcon APRN, CNP [address] [place] [address] PCP - General Family Medicine 08/29/16 Jack Dukes MD [address] [place] [address] Consulting Physician Neurology 08/21/16 Lito Chatterjee MD [address] [place] [address] Consulting Physician General Surgery 04/27/19 Gustabo Falk MD [address] [place] [address] Consulting Physician Radiation Oncology 04/27/19 Amrit Goddard MD [address] [address] [address] Consulting Physician General Surgery 06/08/19 Phan Grant MD [address] [place] [address] Consulting Physician Medical Oncology 02/16/20 documented as of this encounter
--- OUTSIDE RECORDS SUMMARY | 2024-10-11 18:01 | XMS_ITS | Continuity of Care Document ---
Author Organization [facility] Address [address] [place] [address] [place] [address] Phone Care Team Providers Care Register Of Deeds Name Role Phone Massimo Herring MD Unavailable [...] Diagnoses Date Provider Providers Copied on Encounter [facility], [address] [place], [place], [id number], tel:[phone] [facility] Medicine No Information [address] [facility] [place], [id number] , [place]. tel:[phone] Referring Provider: Massimo Herring, [address] [place], [place], [address]. tel:[phone] OFFICE/OUTPAT IENT VISIT, [facility], [address] [place], [place], [address], tel:[phone] [facility] Seizure (chief complaint) depression (chief complaint) ADD (chief complaint) back pain (chief complaint) Epilepsy, unspecified, without mention of intractable epilepsyLumbago [address] [address] [place], [place], [address] , . tel:[phone] Referring Provider: Massimo Herring, [address] [place], [place], [address]. tel:[phone] Family History Family Member Type Diagnosis Age At Onset No Information Payers Payer name Insurance type Covered constitution party ID Authoriza tion(s) No Information Social [...]
--- OUTSIDE RECORDS SUMMARY | 2024-10-11 18:01 | XMS_ITS | Encounter Summary ---
Author Organization [facility] Address [address] [place] [address] Phone Care Team Providers Care Kitchen Designer Name Role Phone Jack Dukes MD Unavailable [phone] Arianne Alarcon APRN, LENS CLEANER Primary Care Provider [phone] Lito Chatterjee MD Unavailable [phone] Gustabo Falk MD Unavailable [phone] Amrit Goddard MD Unavailable Phan Grant MD Unavailable [phone] Reason for Visit * Reason Comments Medication Refill Encounter Details Date Type Department Care Team (Late st Contact Info) Description 05/30/2021 Refill [facility] - Neurology [facility] [address] [place] [address] Jack Dukes MD [address] [place] [address] Medication Refill Social History Tobacco Use Types Packs/Day Years Used Date Smoking Tobacco: Never Smokeless Tobacco: Never Alcohol Use Standard Drinks/Week Comments No 0 (1 standard drink = 0.6 oz pur e alcohol) Comments No Sex and Gender Information Value Date Recorded Sex Assigned at Not on file Legal Sex Female 2:52 AM HOB MILL OPERATOR Gender Identity Not on file Sexual Orientation Not on file 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) documented in this encounter Care Teams Kitchen Designer Relationship Specialty Start Date End Date Arianne Alarcon APRN, CNP [address] [place] [address] PCP - General Family Medicine 08/29/16 Jack Dukes MD [address] [place] [address] Consulting Physician Neurology 08/21/16 Lito Chatterjee MD [address] [place] [address] Consulting Physician General Surgery 04/27/19 Gustabo Falk MD [address] [facility] [place] [address] Consulting Physician Radiation Oncology 04/27/19 Amrit Goddard MD [address] [address] Consulting Physician General Surgery 06/08/19 Phan Grant MD [address] [place] [address] Consulting Physician Medical Oncology 02/16/20 documented as of this encounter
--- OUTSIDE RECORDS SUMMARY | 2024-10-11 18:01 | XMS_ITS | Encounter Summary ---
Author Organization [facility] Address [address] [place] [address] Phone Care Team Providers Care Float Operator Name Role Phone Jack Dukes MD Unavailable [phone] Arianne Alarcon APRN, RUG DRY ROOM ATTENDANT Primary Care Provider [phone] Lito Chatterjee MD Unavailable [phone] Gustabo Falk MD Unavailable [phone] Amrit Goddard MD Unavailable Phan Grant MD Unavailable [phone] Reason for Visit * Reason Comments Medication Refill Encounter Details Date Type Department Care Team (Late st Contact Info) Description 05/29/2020 Refill [facility] - Neurology - [place] [address] [place] [address] Jack Dukes MD [address] [place] [address] Medication Refill Social History Tobacco Use Types Packs/Day Years Used Date Smoking Tobacco: Never Smokeless Tobacco: Never Alcohol Use Standard Drinks/Week Comments No 0 (1 standard drink = 0.6 oz pur e alcohol) Comments No Sex and Gender Information Value Date Recorded Sex Assigned at Not on file Legal Sex Female 2:52 AM SKEIN DRIER Gender Identity Not on file Sexual Orientation Not on file 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) documented in this encounter Care Teams Float Operator Relationship Specialty Start Date End Date Arianne Alarcon APRN, CNP [address] [place] [address] PCP - General Family Medicine 08/29/16 Jack Dukes MD [address] [place] [address] Consulting Physician Neurology 08/21/16 Lito Chatterjee MD [address] [place] [address] Consulting Physician General Surgery 04/27/19 Gustabo Falk MD [address] [place] [address] Consulting Physician Radiation Oncology 04/27/19 Amrit Goddard MD [address] [address] Consulting Physician General Surgery 06/08/19 Phan Grant MD [address] [place] [address] Consulting Physician Medical Oncology 02/16/20 documented as of this encounter
--- OUTSIDE RECORDS SUMMARY | 2024-10-11 18:01 | XMS_ITS | Encounter Summary ---
Author Organization [facility] Address [address] [place] [address] Phone Care Team Providers Care Flower Grower Name Role Phone Jack Dukes MD Unavailable [phone] Arianne Alarcon APRN, REGIONAL PLANNER Primary Care Provider [phone] Lito Chatterjee MD Unavailable Gustabo Falk MD Unavailable [phone] Alfred Ochoa MD Unavailable Amrit Goddard MD Unavailable Phan Grant MD Unavailable [phone] Reason for Visit * Reason Comments Medication Refill Encounter Details Date Type Department Care Team (Late st Contact Info) Description 12/03/2019 [facility]ill [facility] - [place] [employer] [address] [facility] [place] [address] Jack Dukes MD [address] [place] [address] Medication Refill Social History Tobacco Use Types Packs/Day Years Used Date Smoking Tobacco: Never Smokeless Tobacco: Never Alcohol Use Standard Drinks/Week Comments No 0 (1 standard drink = 0.6 oz pur e alcohol) Comments No Sex and Gender Information Value Date Recorded Sex Assigned at Not on file Legal Sex Female 2:52 AM SENIOR PRODUCER Gender Identity Not on file Sexual Orientation Not on file 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 on file Not on file Not on file documented as of this encounter Plan of Treatment Upcoming Encounters Date Type Department Care Team (Late st Contact Info) Description 08/25/2025 2:00 PM SENIOR PRODUCER Office Visit [facility] Oncology Services [address] [place] [address] Phan Grant MD [address] [place], [place] [address] Discharge Disposition: Discharged to home or Selfcare documented as of this encounter Visit Diagnoses Diagnosis 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) documented in this encounter Care Teams Flower Grower Relationship Specialty Start Date End Date Arianne Alarcon APRN, CNP [address] [place] [address] PCP - General Family Medicine 08/29/16 Jack Dukes MD [address] [place] [address] Consulting Physician Neurology 08/21/16 Lito Chatterjee MD [address] [place] [address] Consulting Physician General Surgery 04/27/19 Gustabo Falk MD [address] [place] [address] Consulting Physician Radiation Oncology 04/27/19 Alfred Ochoa MD [address] [facility] [address] Consulting Physician Medical Oncology 04/27/19 02/15/20 Amrit Goddard MD [address] [address] Consulting Physician General Surgery 06/08/19 Phan Grant MD [address] [place] [address] Consulting Physician Medical Oncology 02/16/20 documented as of this encounter
--- OUTSIDE RECORDS SUMMARY | 2024-10-11 18:01 | XMS_ITS ---
Author Organization [facility] Address [address] [place] [address] Care Team Providers Care Rack Cleaner Name Role Phone Maximiliano Grady Primary Care Provider [phone] [facility], SR Adult ROLLY Unavailabl e [phone] Natalie Martinez Unavailable [phone] REASON FOR VISIT DOC Alcohol, has been on Vivitrol in the past but felt like it didn't help, wants to discuss options, Last drink 03/04/24 Social History Sex Assigned At : Social History Observation Description Sex Assigned At Female Encounters Encounter Location Date Provider Diagnosis [address] [address] 03/09/2024 Natalie Martinez Plan Of Treatment No Information Progress Notes * Lu NGUYỄNDOB: [birth year] (49 yo F)Acc No.[id number]:03/09/2024 UNLOCKED PROGRESS NOTE Patient: Lu WALKER Provider: Akin Martinez, MSN, ALL AROUND GEAR MACHINE OPERATOR, PMHNP-BC :1975 A ge:48 Y S ex:Female Date:03/09/2024 [facility] Pcp:Maximiliano Grady Subjective: * Chief Complaints: * 1 . DOC Alcohol, has been on Vivitrol in the past but felt like it didn't help, wants to discuss options, Last drink 03/04/24. * Medical History: Objective: * Vitals: Assessment: Plan: * Treatment: * * Electronic signature of Nanette Martinez on 10/11/2024 at 06:01 PM CDT Sign off status: Pending * Provider: Akin Martinez, CHARLETTE, ALL AROUND GEAR MACHINE OPERATOR, PMHNP-BC Date: 0 03/09/2024 Generated for Printing/Faxing/eTransmitting on: 0 10/11/2024 06:01 PM CDT
--- OUTSIDE RECORDS SUMMARY | 2024-10-11 18:01 | XMS_ITS | Encounter Summary ---
Author Organization [facility] Address [address] [place] [address] Phone Care Team Providers Care Mosaic Worker Name Role Phone Jack Dukes MD Unavailable [phone] Arianne Alarcon APRN, ROBOTICS TECHNICIAN Primary Care Provider [phone] Lito Chatterjee MD Unavailable [phone] Gustabo Falk MD Unavailable [phone] Amrit Goddard MD Unavailable Phan Grant MD Unavailable [phone] Reason for Visit * Reason Comments Medication Refill Encounter Details Date Type Department Care Team (Late st Contact Info) Description 04/25/2022 Refill [facility] - Neurology [facility] #[address] [place] [address] Jack Dukes MD [address] [place] [address] Medication Refill Social History Tobacco Use Types Packs/Day Years Used Date Smoking Tobacco: Never Smokeless Tobacco: Never Alcohol Use Standard Drinks/Week Comments No 0 (1 standard drink = 0.6 oz pur e alcohol) Comments No Sex and Gender Information Value Date Recorded Sex Assigned at Not on file Legal Sex Female 2:52 AM STONE DRESSER Gender Identity Not on file Sexual Orientation Not on file 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 Not on file Not on file Not on file documented as of this encounter Plan of Treatment Upcoming Encounters Date Type Department Care Team (Late st Contact Info) Description 08/25/2025 2:00 PM STONE DRESSER Office Visit [facility] Oncology Services [address] [place] [address] Phan Grant MD [address] [place] [address] Discharge Disposition: Discharged to home or Selfcare documented as of this encounter Visit Diagnoses Diagnosis Seizures (HCC) Other convulsions documented in this encounter Care Teams Mosaic Worker Relationship Specialty Start Date End Date Arianne Alarcon APRN, CNP [address] [place] [address] PCP - General Family Medicine 08/29/16 Jack Dukes MD [address] [place] [address] Consulting Physician Neurology 08/21/16 Lito Chatterjee MD [address] [place] [address] Consulting Physician General Surgery 04/27/19 Gustabo Falk MD [address] [place] [address] Consulting Physician Radiation Oncology 04/27/19 Amrit Goddard MD [address] [address] Consulting Physician General Surgery 06/08/19 Phan Grant MD [address] [place] [address] Consulting Physician Medical Oncology 02/16/20 documented as of this encounter
--- OUTSIDE RECORDS SUMMARY | 2024-10-11 18:01 | XMS_ITS | Encounter Summary ---
Author Organization [facility] Address [address] [place] [address] Phone Care Team Providers Care Sas Developer Name Role Phone Jack Dukes MD Unavailable [phone] Arianne Alarcon APRN, SOFTWARE ENGINEERING SPECIALIST Primary Care Provider [phone] Lito Chatterjee MD Unavailable [phone] Gustabo Falk MD Unavailable [phone] Amrit Goddard MD Unavailable Phan Grant MD Unavailable [phone] Reason for Visit * Reason Comments Medication Refill Encounter Details Date Type Department Care Team (Late st Contact Info) Description 12/06/2020 Refill [facility] - Neurology - [place] [address] [place] [address] Jack Dukes MD [address] [place] [address] Medication Refill Social History Tobacco Use Types Packs/Day Years Used Date Smoking Tobacco: Never Smokeless Tobacco: Never Alcohol Use Standard Drinks/Week Comments No 0 (1 standard drink = 0.6 oz pur e alcohol) Comments No Sex and Gender Information Value Date Recorded Sex Assigned at Not on file Legal Sex Female 2:52 AM FRONT DESK SUPERVISOR Gender Identity Not on file Sexual Orientation Not on file 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 on file Not on file [...] st Contact Info) Description 08/25/2025 2:00 PM FRONT DESK SUPERVISOR Office Visit [facility] Center Oncology Services [address] [place] [address] Phan Grant MD [address] [place] [address] Discharge Disposition: Discharged to home or Selfcare documented as of this encounter Visit Diagnoses Diagnosis 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) documented in this encounter Care Teams Sas Developer Relationship Specialty Start Date End Date Arianne Alarcon APRN, CNP [address] [place] [address] PCP - General Family Medicine 08/29/16 Jack Dukes MD [address] [place] [id number] Consulting Physician Neurology 08/21/16 Lito Chatterjee MD [address] [place] [address] Consulting Physician General Surgery 04/27/19 Gustabo Falk MD [address] [facility] [place] [address] Consulting Physician Radiation Oncology 04/27/19 Amrit Goddard MD [address] [address] Consulting Physician General Surgery 06/08/19 Phan Grant MD [address] [place] [address] Consulting Physician Medical Oncology 02/16/20 documented as of this encounter
--- OUTSIDE RECORDS SUMMARY | 2024-10-11 18:01 | XMS_ITS | Encounter Summary ---
Author Organization [facility] Address [address] [place] [address] Phone Care Team Providers Care Forest Fire Fighter Name Role Phone Jack Dukes MD Unavailable [phone] Arianne Alarcon APRN, MANAGER UNIVERSITY Primary Care Provider [phone] Lito Chatterjee MD Unavailable [phone] Gustabo Falk MD Unavailable [phone] Amrit Goddard MD Unavailable Phan Grant MD Unavailable [phone] Reason for Visit * Reason Comments Medication Refill Encounter Details Date Type Department Care Team (Late st Contact Info) Description 01/17/2022 Refill [facility] - Neurology [facility] [address] [place] [address] Jack Dukes MD [address] [place] [address] Medication Refill Social History Tobacco Use Types Packs/Day Years Used Date Smoking Tobacco: Never Smokeless Tobacco: Never Alcohol Use Standard Drinks/Week Comments No 0 (1 standard drink = 0.6 oz pur e alcohol) Comments No Sex and Gender Information Value Date Recorded Sex Assigned at Not on file Legal Sex Female 2:52 AM ELECTRONICS TECHNICIAN Gender Identity Not on file Sexual Orientation Not on file 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 Date Job End Date 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 Not on file Not on [...] st Contact Info) Description 08/25/2025 2:00 PM ELECTRONICS TECHNICIAN Office Visit [facility] - [facility] Center Oncology Services [address] [place] [address] Phan Grant MD [address] [place] [address] Discharge Disposition: Discharged to home or Selfcare documented as of this encounter Visit Diagnoses Diagnosis 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) documented in this encounter Care Teams Forest Fire Fighter Relationship Specialty Start Date End Date Arianne Alarcon APRN, CNP [address] [place] [address] PCP - General Family Medicine 08/29/16 Jack Dukes MD [address] [place] [id number] Consulting Physician Neurology 08/21/16 Lito Chatterjee MD [address] [place] [address] Consulting Physician General Surgery 04/27/19 Gustabo Falk MD [address] [place], [place] [id number] Consulting Physician Radiation Oncology 04/27/19 Amrit Goddard MD [address] [address] Consulting Physician General Surgery 06/08/19 Phan Grant MD [address] [place] [address] Consulting Physician Medical Oncology 02/16/20 documented as of this encounter
--- OUTSIDE RECORDS SUMMARY | 2024-10-11 18:01 | XMS_ITS | Encounter Summary ---
Author Organization [facility] Address [address] [place] [address] Phone Care Team Providers Care Ring Facer Name Role Phone Jack Dukes MD Unavailable [phone] Arianne Alarcon APRN, DETECTIVE AND INTELLIGENCE ANALYST Primary Care Provider [phone] Lito Chatterjee MD Unavailable [phone] Gustabo Falk MD Unavailable [phone] Amrit Goddard MD Unavailable Phan Grant MD Unavailable [phone] Reason for Visit * Reason Comments Medication Refill Encounter Details Date Type Department Care Team (Late st Contact Info) Description 02/22/2020 Refill [facility] - Neurology - [place] [address] [place] [address] Jack Dukes MD [address] [place] [address] Medication Refill Social History Tobacco Use Types Packs/Day Years Used Date Smoking Tobacco: Never Smokeless Tobacco: Never Alcohol Use Standard Drinks/Week Comments No 0 (1 standard drink = 0.6 oz pur e alcohol) Comments No Sex and Gender Information Value Date Recorded Sex Assigned at Not on file Legal Sex Female 2:52 AM SUSTAINABILITY OFFICER Gender Identity Not on file Sexual Orientation Not on file 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 Date 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 End 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 Not on file Not on file [...] st Contact Info) Description 08/25/2025 2:00 PM SUSTAINABILITY OFFICER Office Visit [facility] Oncology Services [address] [place] [address] Phan Grant MD [address] [place] [address] Discharge Disposition: Discharged to home or Selfcare documented as of this encounter Visit Diagnoses Diagnosis 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) documented in this encounter Care Teams Ring Facer Relationship Specialty Start Date End Date Arianne Alarcon APRN, CNP [address] [place] [address] PCP - General Family Medicine 08/29/16 Jack Dukes MD [address] [place] [address] Consulting Physician Neurology 08/21/16 Lito Chatterjee MD [address] [place] [address] Consulting Physician General Surgery 04/27/19 Gustabo Falk MD [address] [facility] [place] [address] Consulting Physician Radiation Oncology 04/27/19 Amrit Goddard MD [address] [address] Consulting Physician General Surgery 06/08/19 Phan Grant MD [address] [place] [address] Consulting Physician Medical Oncology 02/16/20 documented as of this encounter
--- OUTSIDE RECORDS SUMMARY | 2024-10-11 18:01 | XMS_ITS | Encounter Summary ---
Author Organization [facility] Address [address] [facility] [place] [address] Phone Care Team Providers Care Rivet Heater Gas Name Role Phone Jack Dukes MD Unavailable [phone] Arianne Alarcon APRN, CNP Primary Care Provider [phone] Lito Chatterjee MD Unavailable Gustabo Falk MD Unavailable [phone] Amrit Goddard MD Unavailable Phan Grant MD Unavailable [phone] Reason for Visit * Reason Comments Medication Refill Encounter Details Date Type Department Care Team (Late st Contact Info) Description 06/20/2020 [facility] [address] [place] [address] Phan Grant MD [address] [place] [address] Medication Refill Social History Tobacco Use Types Packs/Day Years Used Date Smoking Tobacco: Never Smokeless Tobacco: Never Alcohol Use Standard Drinks/Week Comments No 0 (1 standard drink = 0.6 oz pur e alcohol) Comments No Sex and Gender Information Value Date Recorded Sex Assigned at Not on file Legal Sex Female 2:52 AM RN GYNECOLOGY Gender Identity Not on file Sexual Orientation Not on file 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 No / Unsure 06/08/2020 9:05 AM RN GYNECOLOGY documented as of this encounter Miscellaneous Notes * Telephone Encounter - Nikki Martin RN - 06/21/2020 2:16 PM RN GYNECOLOGY Lorazepam called into pharmacy previous refill not received by pharmacy GYNECOLOGY documented in this encounter Plan of Treatment Upcoming Encounters Date Type Department Care Team (Late st Contact Info) Description 08/25/2025 2:00 PM RN GYNECOLOGY [facility] [address] [place] [phone] Phan Grant MD [address] [place] [address] Discharge Disposition: Discharged to home or Selfcare documented as of this encounter Visit Diagnoses Not on filedocumented in this encounter Care Teams Rivet Heater Gas Relationship Specialty Start Date End Date Arianne Alarcon APRN, CNP [address] [place] [address] PCP - General Family Medicine 08/29/16 Jack Dukes MD [address] [place] [phone] Consulting Physician Neurology 08/21/16 Lito Chatterjee MD [address] [place] [address] Consulting Physician General Surgery 04/27/19 Gustabo Falk MD [address] [address] Consulting Physician Radiation Oncology 04/27/19 Amrit Goddard MD [address] [address] Consulting Physician General Surgery 06/08/19 Phan Grant MD [address] [place] [address] Consulting Physician Medical Oncology 02/16/20 documented as of this encounter
--- OUTSIDE RECORDS SUMMARY | 2024-10-11 18:01 | XMS_ITS | Clinical Summary ---
Author Organization [facility] Address [address] [place] [address] Care Team Providers Care Electric Repair Supervisor Name Role Phone Arianne Alarcon NP Primary Care Provider [phone] Derrick Walker MD Unavailable [phone] Allergies Active Allergy Reactions Criticality Noted [...] (07/31/2020): Added automatically from request for surgery [id number] History of breast cancer 02/10/2020 Overview (02/10/2020): Added automatically from request for surgery [id number] Anxiety 02/08/2020 Sensory neuropathy 02/08/2020 Nodule of [...] Type Department Care Team Description 08/05/2024 Documentation [facility] Warm Hand Off Program [address] [place], [place] [phone] Min Arellano 08/04/2024 11:25 AM ATTRACTIONS ASSOCIATE - 08/06/2024 3:15 PM ATTRACTIONS ASSOCIATE Hospital Encounter [facility] Medical Care [address] [place] [address] Daniel Torres MD Sinha, Chandni, MD Alcohol withdrawal syndrome without complication (HCC) (Primary Dx) Discharge Disposition: Discharge to home or self care 08/04/2024 Documentation [facility] Warm Hand Off Program [address] [place], [place] [phone] Ana Nair from Last 3 Months Immunizations [...] PORTACATH PLACEMENT Left MASTECTOMY 12/24/2019 Bilateral TISSUE BAGGAGE SMASHER PLACEMENT 12/24/2019 Bilateral Removal Left Port a [...] ovary 2002 Ovarian cyst Cyst of ovary 2004 Ovarian cyst Hx Other Medical ; Comm ents: Kale; Outcome: Male Hx Other Medical ; Comm ents: Miscarriage @ 6mos; Outcome: Unknown sex Hx Other Medical Chronic UTI Hx Other Medical Appendicitis Hx Other Medical Headache, migra ine Tension headache Headache, tensi on Depression Breast cancer (HCC) RIGHT - inva sive ductual ca History of chemotherapy 10/2019 RIGHT BR EAST CANCER Seizure disorder (HCC) Seizure d isorder; last seizure 08/2019 Nephrolithiasis History of substance abuse (HCC) Family History Medical History Relation Name Comments [...] drink = 0.6 oz pur e alcohol) [facility] Utilities Answer Date Recorded In the past 12 months has Buf[employer], gas, oil, or water [employer] threatened to shut off services in your [...] often do you attend chur ch or druze services? More than 4 times per year 08/05/2024 Do you belong to any clubs o r organizations such as shinto groups, unions, fraternal or athletic groups, or [...] time in the past 12 m [place], were you homeless or living in a mcc (including now)? No 08/05/2024 Personal Safety Answer Date Recorded Have you ever been in or are you currently in a harmful physical or emotional relationship or is someone making you feel afraid or unsafe? Denies 08/04/2024 Comments No Sex and Gender Information Value Date Recorded Sex Assigned at Not on file Legal Sex Female 12:33 AM ATTRACTIONS ASSOCIATE Gender Identity Female 06/06/2021 8:34 AM ATTRACTIONS ASSOCIATE Sexual Orientation Straight 06/06/2021 8: 34 AM ATTRACTIONS ASSOCIATE Obstetrics History Last Filed Vital Signs Vital Sign Reading Time Taken Comments Blood Pressure 100/80 08/06/2024 7:12 AM ATTRACTIONS ASSOCIATE Pulse 94 08/06/2024 7:12 AM ATTRACTIONS ASSOCIATE Temperature 36.4 C (97.6 F) 08/06/2024 7:12 AM ATTRACTIONS ASSOCIATE Respiratory Rate 18 08/06/2024 7:12 AM ATTRACTIONS ASSOCIATE Oxygen Saturation 94% 08/06/2024 7:12 AM ATTRACTIONS ASSOCIATE Inhaled Oxygen Concentration - - Weight 77.1 kg (170 lb) 08/04/2024 6:27 PM ATTRACTIONS ASSOCIATE Height 165.1 cm (5' 5 ) 08/04/2024 6:27 PM ATTRACTIONS ASSOCIATE Body Mass Index 28.29 08/04/2024 6:27 PM ATTRACTIONS ASSOCIATE Plan of Treatment Health Maintenance Due Date [...] this topic Medical Devices Implanted Type Area Slps Device Identifier Shelf Expiration Date Model / Serial / Lot [employer] 68-120 Natrelle 9cm Style 68mp Smooth Anterior Diaphragm Valve P3cm Latex Free - [id number] - [id number] Implanted:Qty: 1 on 03/16/2021 by Derrick Walker MD at [facility] Breast Left: Breast [employer] 04/09/2024 68-120 / [id number] / [employer] [id number] Alloderm Select [id number] Allograft Regenerative Freeze Dried - [id number] - [id number] Implanted:Qty: 1 on 12/24/2019 by Derrick Walker MD at [facility] Left: Breast [employer] 11/03/2020 [id number] / [id number] / [employer] [id number] Alloderm Select [id number] Allograft Regenerative Freeze Dried - [id number] - [id number] Implanted:Qty: 1 on 12/24/2019 by Derrick Walker MD at [facility] Right: Breast [employer] 10/04/2020 [id number] / [id number] / [employer] [id number] [place] Microvascular 2.5mm Ring Pin Protective Cover Jaw Assembly Latex Free - [id number] Implanted:Qty: 1 on 04/06/2020 by Derrick Walker MD at [facility] Right: Breast [employer] Allian 10/13/2024 [id number] / / [employer] [id number] [place] Microvascular 2.5mm Ring Pin Protective Cover Jaw Assembly Latex Free - [id number] Implanted:Qty: 1 on 04/06/2020 by Derrick Walker MD at [facility] Left: Breast [employer] Allian 10/23/2024 [id number] / / [id number] [employer] 68-120 Natrelle 9cm Style 68mp Smooth Anterior Diaphragm Valve P3cm Latex Free - [id number] - [id number] Implanted:Qty: 1 on 03/16/2021 by Derrick Walker MD at [facility] Left: Breast [employer] 08/30/2023 68-120 / [id number] / Explanted Type Area Slps Device Identifier Shelf Expiration Date Model / Serial / Lot Sientra Inc [id number] Allox2 15x13.8cm Texture Integrate Port Breast P6.4-7.9cm Full - [id number] Implanted:Qty: 1 on 12/24/2019 by Derrick Walker MD at [facility] Explanted:Qty: 1 on 04/06/2020 by Derrick Walker MD at [facility] Breast Left: Breast [employer] 11/03/2024 [id number] / / S[employer] [id number] Allox2 15x13.8cm Texture Integrate Port Breast P6.4-7.9cm Full - [id number] Implanted:Qty: 1 on 12/24/2019 by Derrick Walker MD at [facility] Explanted:Qty: 1 on 04/06/2020 by Derrick Walker MD at [facility] Right: Breast [employer] 11/03/2024 [id number]-[id number] / / Procedures Procedure Name Priority Date/Time Associated Diagnosis Comments XR SHOULDER RIGHT 2 OR MORE VIEWS IP Routine 08/06/2024 9:39 AM ATTRACTIONS ASSOCIATE EGFR Routine 08/06/2024 5:36 AM ATTRACTIONS ASSOCIATE DIFFERENTIAL AUTO Routine 08/06/2024 5:3 6 AM ATTRACTIONS ASSOCIATE CBC WITH AUTO DIFFERENTIAL Routine 08/06/2024 5:36 AM ATTRACTIONS ASSOCIATE PHOSPHORUS Routine 08/06/2024 5:36 AM ATTRACTIONS ASSOCIATE MAGNESIUM Routine 08/06/2024 5:36 AM ATTRACTIONS ASSOCIATE BASIC METABOLIC PANEL Routine 08/06/2024 5:36 AM ATTRACTIONS ASSOCIATE PRO B-TYPE NATRIURETIC PEPTIDE Add-On 08/05/2024 5:22 AM ATTRACTIONS ASSOCIATE EGFR Routine 08/05/2024 5:22 AM ATTRACTIONS ASSOCIATE DIFFERENTIAL AUTO Routine 08/05/2024 5:2 2 AM ATTRACTIONS ASSOCIATE CBC WITH AUTO DIFFERENTIAL Routine 08/05/2024 5:22 AM ATTRACTIONS ASSOCIATE PHOSPHORUS Routine 08/05/2024 5:22 AM ATTRACTIONS ASSOCIATE MAGNESIUM Routine 08/05/2024 5:22 AM ATTRACTIONS ASSOCIATE BASIC METABOLIC PANEL Routine 08/05/2024 5:22 AM ATTRACTIONS ASSOCIATE URINALYSIS, MICROSCOPIC ONLY STAT 08/05/2024 3:22 AM ATTRACTIONS ASSOCIATE URINALYSIS AND REFLEX TO MICROSCOPIC AND CULTURE STAT 08/05/2024 3:22 AM ATTRACTIONS ASSOCIATE US VEIN DUPLEX LOWER EXTREMITY LEFT LIMITED IP Routine 08/04/2024 5:23 PM ATTRACTIONS ASSOCIATE ECG 12-LEAD Routine 08/04/2024 2:14 PM ATTRACTIONS ASSOCIATE PRO B-TYPE NATRIURETIC PEPTIDE STAT 08/04/2024 11:34 AM ATTRACTIONS ASSOCIATE EGFR STAT 08/04/2024 11:34 AM ATTRACTIONS ASSOCIATE DIFFERENTIAL AUTO STAT 08/04/2024 11: 34 AM ATTRACTIONS ASSOCIATE MAGNESIUM Routine 08/04/2024 11:34 AM ATTRACTIONS ASSOCIATE LIPASE STAT 08/04/2024 11:34 AM ATTRACTIONS ASSOCIATE ETHANOL STAT 08/04/2024 11:34 AM ATTRACTIONS ASSOCIATE COMPREHENSIVE METABOLIC PANEL STAT 08/04/2024 11:34 AM ATTRACTIONS ASSOCIATE CBC WITH AUTO DIFFERENTIAL STAT 08/04/2024 11:34 AM ATTRACTIONS ASSOCIATE INFLUENZA A/B, RSV, AND COVID-19 PCR Routine 08/04/2024 11:34 AM ATTRACTIONS ASSOCIATE DIAGNOSTIC MAMMOGRAM BILATERAL W MARY ANNE Routine 05/11/2015 11:49 AM ATTRACTIONS ASSOCIATE from Last 3 Months or Most Recently Relevant to Health Maintenance Results * XR Shoulder Right 2 or More Views (08/06/2024 9:39 AM ATTRACTIONS ASSOCIATE) Anatomical Region Laterality Modality Upper Extremities, Shoulder Right Comp uted Radiography 08/06/2024 12:1 9 PM ATTRACTIONS ASSOCIATE Narrative 08/06/2024 12:22 PM ATTRACTIONS ASSOCIATE EXAM DESCRIPTION: XR SHOULDER RIGHT 2 OR [...] Anurag Almeida M.D. MZ: MZ Report ID: [id number] Reading Location: [place] [address] Procedure Note Anurag Almeida MD - 08/06/2024 [...] Anurag Almeida M.D. MZ: MZ Report ID: [id number] Reading Location: [place] [address] China Silva MD IM XR PROCEDURES Final Result * eGFR (08/06/2024 5:36 AM ATTRACTIONS ASSOCIATE) eGFR 78 >=60 mL/min/1. 73 m2 Comment: [...] last reviewed 2021. Blood 08/06/2024 5:36 AM ATTRACTIONS ASSOCIATE 08/06/2024 6:19 AM ATTRACTIONS ASSOCIATE us China Silva MD LAB BLOOD ORDERABLES Final Resu lt [facility] ([place]) [facility] [place] [address] * Differential, auto (08/06/2024 5:36 AM ATTRACTIONS ASSOCIATE) Neutrophil abs 2.4 1.5 - 6.5 K/cumm [...] revised on 2017. Blood 08/06/2024 5:36 AM ATTRACTIONS ASSOCIATE 08/06/2024 6:19 AM ATTRACTIONS ASSOCIATE us China Silva MD LAB BLOOD ORDERABLES Final Resu lt [facility] ([place]) [facility] [place] [address] * (ABNORMAL) CBC with auto differential (08/06/2024 5:36 AM ATTRACTIONS ASSOCIATE) WBC 4.5 3.8 - 9.9 K/cumm Hgb 12.2 11.9 - 15.5 g/dL [facility] ([place]) Hct 35.9 35.6 - 45.5 % [facility] ([place]) Plt 356 150 - 400 K/cumm [facility] ([place]) MPV 8.8(L) 9.1 - 12.3 fL [facility] ([place]) RBC 3.87(L) 3.90 - 5.20 M/cumm [facility] ([place]) MCV 92.8 81.3 - 96.4 fL [facility] ([place]) MCH 31.5 27.1 - 33.3 pg [facility] ([place]) MCHC 34.0 32.3 - 35.7 g/dL [facility] ([place]) RDW CV 12.4 11.1 - 14.9 % [facility] ([place]) RDW SD 42.0 35.7 - 48.1 fL [facility] ([place]) NRBC abs 0.00 0.00 - 0.01 K/cumm [facility] ([place] Blood 08/06/2024 5:36 AM ATTRACTIONS ASSOCIATE 08/06/2024 6:19 AM ATTRACTIONS ASSOCIATE China Silva MD LAB BLOOD ORDERABLES Final Resu lt Performing Organization Address City/[facility]/ZIP Co de Phone Number [facility] ([place]) [facility] [place] [place] [address] * Phosphorus (08/06/2024 5:36 AM ATTRACTIONS ASSOCIATE) Phosphorus, pl 4.4 2.3 - 4.5 mg/dL Blood 08/06/2024 5:36 AM ATTRACTIONS ASSOCIATE 08/06/2024 6:19 AM ATTRACTIONS ASSOCIATE China Silva MD LAB BLOOD ORDERABLES Final Resu lt Performing Organization Address City/[facility]/ZIP Co de Phone Number [facility] ([place]) [address] [facility] [place] [place] [address] * Magnesium (08/06/2024 5:36 AM ATTRACTIONS ASSOCIATE) Magnesium 2.0 1.4 - 2.5 mg/dL Blood 08/06/2024 5:36 AM ATTRACTIONS ASSOCIATE 08/06/2024 6:19 AM ATTRACTIONS ASSOCIATE China Silva MD LAB BLOOD ORDERABLES Final Resu lt [facility] ([place]) [facility] [place] [address] * Basic metabolic panel (08/06/2024 5:36 AM ATTRACTIONS ASSOCIATE) Pathologist [facility] Sodium 139 135 - 145 mmol/L Potassium, pl 3.8 3.3 - 4.9 mmol/L [facility] ([place]) Chloride 104 97 - 110 mmol/L [facility] ([place]) CO2 25 22 - 32 mmol/L [facility] ([place]) Anion gap 11 2 - 15 mmol/L [facility] ([place]) BUN 6 6 - 25 mg/dL [facility] ([place]) Creatinine 0.91 0.60 - 1.10 mg/dL [facility] ([place]) Glucose 98 70 - 199 mg/dL [facility] ([place]) Comment: Interpretive Data Fasting glucose [...] 2022. Calcium 8.9 8.5 - 10.3 mg/dL [facility] ([place]) Blood 08/06/2024 5:36 AM ATTRACTIONS ASSOCIATE 08/06/2024 6:19 AM ATTRACTIONS ASSOCIATE us China Silva MD LAB BLOOD ORDERABLES Final Resu lt [facility] ([place]) 1 [facility] [place] [address] * eGFR (08/05/2024 5:22 AM ATTRACTIONS ASSOCIATE) [facility] eGFR 70 >=60 mL/min/1. 73 m2 Comment: [...] last reviewed 2021. Blood 08/05/2024 5:22 AM ATTRACTIONS ASSOCIATE 08/05/2024 5:39 AM ATTRACTIONS ASSOCIATE us China Silva MD LAB BLOOD ORDERABLES Final Resu lt [facility] ([place]) 1 [facility] [place] [address] * Differential, auto (08/05/2024 5:22 AM ATTRACTIONS ASSOCIATE) Neutrophil abs 2.2 1.5 - 6.5 K/cumm [...] revised on 2017. Basophil pct 0.5 % [facility] ([place]) Comment: Interpretive Data Percent cell count reference ranges are not reported, since discordance with absolute values may lead to misinterpretation of CBC data. Current Interpretive Data was last revised on 2017. Blood 08/05/2024 5:22 AM ATTRACTIONS ASSOCIATE 08/05/2024 5:39 AM ATTRACTIONS ASSOCIATE us China Silva MD LAB BLOOD ORDERABLES Final Resu lt [facility] ([place]) 1 [facility] [place] [address] * Pro B-type natriuretic peptide (08/05/2024 5:22 AM ATTRACTIONS ASSOCIATE) NT-proBNP 241 <=300 pg/mL Comment: Interpretive Comments: [...] et.al. Eur Heart J. 2006:27:330-337. 2. Sierra HENDRIX, Rosalinda CARVALHO. J. AM Stacey Cardiol: Cardiovasc Imag. 2009;2: 216- 225. Interpretive Data Last Revised Date: 2018. Blood 08/05/2024 5:22 AM ATTRACTIONS ASSOCIATE 08/05/2024 9:21 AM ATTRACTIONS ASSOCIATE us China Silva MD LAB BLOOD ORDERABLES Final Resu lt [facility] ([place]) 1 [facility] Department of Laboratories [place], [place] [id number] * (ABNORMAL) CBC with auto differential (08/05/2024 5:22 AM ATTRACTIONS ASSOCIATE) WBC 4.2 3.8 - 9.9 K/cumm Hgb [...] [facility] ([place]) Blood 08/05/2024 5:22 AM ATTRACTIONS ASSOCIATE 08/05/2024 5:39 AM ATTRACTIONS ASSOCIATE China Silva MD LAB BLOOD ORDERABLES Final Resu lt Performing Organization Address City/[facility]/ZIP Co de Phone Number [facility] ([place]) 1 [facility] [place] [address] * Phosphorus (08/05/2024 5:22 AM ATTRACTIONS ASSOCIATE) Phosphorus, pl 3.9 2.3 - 4.5 mg/dL Blood 08/05/2024 5:22 AM ATTRACTIONS ASSOCIATE 08/05/2024 5:39 AM ATTRACTIONS ASSOCIATE China Silva MD LAB BLOOD ORDERABLES Final Resu lt Performing Organization Address [facility] Co de Phone Number [facility] ([place]) 1 [facility] [place] [address] * Magnesium (08/05/2024 5:22 AM ATTRACTIONS ASSOCIATE) Magnesium 2.0 1.4 - 2.5 mg/dL Blood 08/05/2024 5:22 AM ATTRACTIONS ASSOCIATE 08/05/2024 5:39 AM ATTRACTIONS ASSOCIATE China Silva MD LAB BLOOD ORDERABLES Final Resu lt [facility] ([place]) 1 [facility] [place] [address] * (ABNORMAL) Basic metabolic panel (08/05/2024 5:22 AM ATTRACTIONS ASSOCIATE) Sodium 140 135 - 145 mmol/L Potassium, pl 4.3 3.3 - 4.9 mmol/L [facility] ([place]) Chloride 108 97 - 110 mmol/L [facility] ([place]) CO2 25 22 - 32 mmol/L [facility] ([place] Anion gap 8 2 - 15 mmol/L [facility] ([place]) BUN 5(L) 6 - 25 mg/dL [facility] ([place]) Creatinine 0.99 0.60 - 1.10 mg/dL [facility] ([place]) Glucose 96 70 - 199 mg/dL [facility] ([place]) Comment: Interpretive Data Fasting glucose >/= [...] 2022. Calcium 8.9 8.5 - 10.3 mg/dL [facility] ([place]) Blood 08/05/2024 5:22 AM ATTRACTIONS ASSOCIATE 08/05/2024 5:39 AM ATTRACTIONS ASSOCIATE us China Silva MD LAB BLOOD ORDERABLES Final Resu lt [facility] ([place]) 1 [facility] Department [place] [address] * (ABNORMAL) Urinalysis reflex to microscopic and culture Urine (08/05/2024 3:22 AM ATTRACTIONS ASSOCIATE) Color, ur Yellow Yellow Clarity, ur Clear Clear [facility] ([place]) Specific gravity, ur 1.010 1.003 - 1.030 [facility] ([place]) pH, urine 6.0 [facility] ([place]) Comment: Interpretive Data U rine pH is affected by diet, medications, systemic acid-base disturbances, and renal tubular function. pH may affect urinary stone formation. For example, urine pH below 6.0 may help reduce the tendency for calcium phosphate stones and pH greater than 6.0 may reduce the tendency for uric acid stone formation. Source: [facility] Current Interpretive Data was last revised on [...] Reflex to microscopic UA will be performed. [facility] ([place]) Urine 08/05/2024 3:22 AM ATTRACTIONS ASSOCIATE 08/05/2024 3:26 AM ATTRACTIONS ASSOCIATE us China Silva MD LAB MICROBIOLOGY - GENERAL ORDMei CHASE Final Result Performing Organization Address [facility] Co de Phone Number [facility] ([place]) 1 [facility] Department [place] [address] * (ABNORMAL) Urinalysis, microscopic only (08/05/2024 3:22 AM ATTRACTIONS ASSOCIATE) WBC, ur 6-10(A) 0 - 5 /HPF RBC, ur 3-5(A) 0 - 2 /HPF [facility] ([place]) Epithelial cells, squamous, ur 1-5 0 - 5 /HPF [facility] ([place]) Culture Reflex Comment Reflex conditions for urine culture (WBC >10) not met. [facility] ([place]) Urine 08/05/2024 3:22 AM ATTRACTIONS ASSOCIATE 08/05/2024 3:26 AM ATTRACTIONS ASSOCIATE us Daniel Torres MD LAB URINE ORDERABLES Final R esult Performing Organization Address City/[facility] Co de Phone Number [facility] [place] [facility] [place] [address] * US VEIN DUPLEX LOWER EXTREMITY LEFT LIMITED, UNILATERAL (08/04/2024 5:23 PM ATTRACTIONS ASSOCIATE) Anatomical Region Laterality Modality Vascular Left Ultrasound 08/04/2024 7:57 PM ATTRACTIONS ASSOCIATE Narrative 08/04/2024 7:58 PM ATTRACTIONS ASSOCIATE EXAM DESCRIPTION: US VEIN DUPLEX LOWER EXTREMITY [...] Feliciano Abraham M.D. NS: NS Report ID: [id number] Reading Location: [id number] Procedure Note Feliciano Abraham MD - 08/04/2024 [...] Feliciano Abraham M.D. NS: NS Report ID: [id number] Reading Location: [id number] China Silva MD IMG US PROCEDURES Final Result * ECG 12 lead (08/04/2024 2:14 PM ATTRACTIONS ASSOCIATE) 08/04/2024 2:14 PM ATTRACTIONS ASSOCIATE Narrative [facility] - 08/04/2024 4:33 PM ATTRACTIONS ASSOCIATE Vent Rate: 92 bpm RR Interval: 646 msec GA Interval: 219 msec QRS Duration: 73 msec QT Interval: 358 msec QTC Interval: 408 msec P-R-T [place]: 37 - 18 - 35 degrees IMPRESSION: SINUS RHYTHM WITH FIRST DEGREE AV BLOCK LOW QRS VOLTAGE IN PRECORDIAL LEADS [QRS DEFLECTION < 1.0 mV IN CHEST LEADS] ABNORMAL ECG Electronically Signed By: Damion Rodriguez MD Daniel Torres MD ECG ORDERABLES Final Result [facility] * Influenza A/B, RSV, and COVID-19 PCR Nasopharyngeal (08/04/2024 11:34 AM ATTRACTIONS ASSOCIATE) COVID-19 RNA Negative Negative Influenza A RNA Negative Negative [facility] ([place]) Influenza B RNA Negative Negative [facility] ([place]) RSV RNA Negative Negative [facility] ([place]) Comment: Interpretive data: Testing performed by [facility]. This test is performed using the [employer] Xpert Xpress CoV-2/Flu/RSV plus assay. This is a multiplex, real- time reverse transcriptase PCR assay intended for the qualitative detection of nucleic acid from SARS-CoV-2, influenza A, influenza B, and respiratory syncytial virus. This assay has been cleared by the [place] Food and Drug administration. The performance characteristics have been verified by the [facility]. Results must be considered in the clinical context, and a negative result does not rule out infection. Interpretive Data last revised 2023 Nasopharyngeal 08/04/2024 11 :34 AM ATTRACTIONS ASSOCIATE 08/04/2024 11:39 AM ATTRACTIONS ASSOCIATE Narrative [facility] ([place]) - 08/04/2024 12:23 PM ATTRACTIONS ASSOCIATE Is the Patient experiencing symptoms consistent with COVID?->Unknown Flor Sanchez MD LAB MICROBIOLOGY - GENERA L ORDERABLES Final Result [facility] ([place]) 1 [facility] [place] [address] * eGFR (08/04/2024 11:34 AM ATTRACTIONS ASSOCIATE) eGFR 71 >=60 mL/min/1. 73 m2 Comment: [...] reviewed 2021. Blood 08/04/2024 11:3 4 AM ATTRACTIONS ASSOCIATE 08/04/2024 11:39 AM ATTRACTIONS ASSOCIATE us Daniel Torres MD LAB BLOOD ORDERABLES Final R esult [facility] ([place]) 1 [facility] [place] [address] * Differential, auto (08/04/2024 11:34 AM ATTRACTIONS ASSOCIATE) Neutrophil abs 3.4 1.5 - 6.5 K/cumm [...] on 2017. Blood 08/04/2024 11:3 4 AM ATTRACTIONS ASSOCIATE 08/04/2024 11:40 AM ATTRACTIONS ASSOCIATE Daniel Torres MD LAB BLOOD ORDERABLES Final R esult Performing Organization Address City/[facility]/ZIP Co de Phone Number [facility] ([place]) [address] [facility] [place] [address] * Pro B-type natriuretic peptide (08/04/2024 11:34 AM ATTRACTIONS ASSOCIATE) NT-proBNP 278 <=300 pg/mL Comment: Interpretive Comments: [...] Date: 2018. Blood 08/04/2024 11:3 4 AM ATTRACTIONS ASSOCIATE 08/04/2024 12:48 PM ATTRACTIONS ASSOCIATE Daniel Torres MD LAB BLOOD ORDERABLES Final R esult [facility] [place]) [facility] [place] [address] * (ABNORMAL) CBC with auto differential (08/04/2024 11:34 AM ATTRACTIONS ASSOCIATE) WBC 5.5 3.8 - 9.9 K/cumm Hgb [...] [facility] ([place]) Blood 08/04/2024 11:3 4 AM ATTRACTIONS ASSOCIATE 08/04/2024 11:40 AM ATTRACTIONS ASSOCIATE Daniel Torres MD LAB BLOOD ORDERABLES Final R esult [facility] ([place]) [facility] [place] [address] * Magnesium (08/04/2024 11:34 AM ATTRACTIONS ASSOCIATE) Magnesium 1.9 1.4 - 2.5 mg/dL Blood 08/04/2024 11:3 4 AM ATTRACTIONS ASSOCIATE 08/04/2024 11:39 AM ATTRACTIONS ASSOCIATE Daniel Torres MD LAB BLOOD ORDERABLES Final R esult [facility] ([place]) [address] [place] [address] * Lipase (08/04/2024 11:34 AM ATTRACTIONS ASSOCIATE) Pathologist [facility] Lipase 15 10 - 99 Units/L Blood 08/04/2024 11:3 4 AM ATTRACTIONS ASSOCIATE 08/04/2024 11:39 AM ATTRACTIONS ASSOCIATE Daniel Torres MD LAB BLOOD ORDERABLES Final R esult [facility] ([place]) [address] [place] [address] * (ABNORMAL) Ethanol (08/04/2024 11:34 AM ATTRACTIONS ASSOCIATE) Pathologist [facility] Ethanol 37(H) <=10 mg/dL Comment: Interpretive Data Legal limit of intoxication > or = 80 mg/dL Levels > or = 400 mg/dL are potentially TOXIC. Current interpretive data was last revised on 2018. Blood 08/04/2024 11:3 4 AM ATTRACTIONS ASSOCIATE 08/04/2024 11:39 AM ATTRACTIONS ASSOCIATE Daniel Torres MD LAB BLOOD ORDERABLES Final R esult [facility] ([place]) 1 [facility] [place] [address] * Comprehensive metabolic panel (08/04/2024 11:34 AM ATTRACTIONS ASSOCIATE) Pathologist [facility] Sodium 140 135 - 145 mmol/L Potassium, pl 3.5 3.3 - 4.9 mmol/L [facility] ([place]) Chloride 103 97 - 110 mmol/L [facility] ([place]) CO2 25 22 - 32 mmol/L [facility] ([place]) Anion gap 12 2 - 15 mmol/L [facility] ([place]) BUN 6 6 - 25 mg/dL [facility] ([place]) Creatinine 0.98 0.60 - 1.10 mg/dL [facility] ([place]) Glucose 121 70 - 199 mg/dL [...] [facility] ([place]) Blood 08/04/2024 11:3 4 AM ATTRACTIONS ASSOCIATE 08/04/2024 11:39 AM ATTRACTIONS ASSOCIATE us Daniel Torres MD LAB BLOOD ORDERABLES Final R esult [facility] [place] [address] * DIAGNOSTIC MAMMOGRAM BILATERAL W MARY ANNE (05/11/2015 11:49 AM ATTRACTIONS ASSOCIATE) Anatomical Region Laterality Modality Breast Bilateral Mammography 05/11/2015 11:4 9 AM ATTRACTIONS ASSOCIATE Narrative 05/11/2015 11:11 PM ATTRACTIONS ASSOCIATE SCREENING MAMM W MARY ANNE BI Acc#: [id number] Screening Mamm Bi Acc#: [id number] DATE OF EXAM: May 11 2015 Performed [...] DR ANTWAN LATHAM M.D. on: May 11 2015 11:11P Attending: ROD DUQUE Requesting: ROD DUQUE Requesting Fax: -- Attending Fax: -- Attending ID: [id number] Requesting ID: [id number] Report To 1 ID: [id number] Report To 1 Name: ROD DUQUE Report To 1 FAX: -- NextGen Order #: Procedure Note Provider, MD Manuelito - 10/31/2016 SCREENING MAMM W MARY ANNE BI Acc#: [id number] Screening Mamm Bi Acc#: [id number] DATE OF EXAM: May 11 2015 Performed [...] Fax: -- Attending Fax: -- Attending ID: [id number] Requesting ID: [id number] Report To 1 ID: [id number] Report To 1 Name: ROD DUQUE Report To 1 FAX: -- NextGen Order #: us Historical Provider MD KUHN MAMMO PROCEDURES Margarita l Result from Last 3 Months or Most Recently Relevant to Health Maintenance Insurance [facility] Advance Directives For more information, please contact: [phone] * Full Code (Latest Code Status on File) Date Activated Date Inactivated Comments 08/04/2024 6:28 PM 08/06/2024 8:23 PM * Full Code Date Activated Date Inactivated Comments 08/04/2024 6:28 PM 08/04/2024 6:28 PM * Full Code Date Activated Date Inactivated Comments 04/06/2020 8:35 PM 04/10/2020 6:28 PM * Full Code Date Activated Date Inactivated Comments 12/24/2019 7:19 PM 12/25/2019 7:34 PM Care Teams Electric Repair Supervisor Relationship Specialty Start Date End Date Arianne Alarcon NP [address] [place] [address] PCP - General 04/24/17 Derrick Walker MD [address] [place] [address] Consulting Physician Plastic Surgery 12/25/19
--- OUTSIDE RECORDS SUMMARY | 2024-10-11 18:01 | XMS_ITS | Encounter Summary ---
Author Organization [facility] Address [address] [place] [address] Phone Care Team Providers Care Varitype Operator Name Role Phone Jack Dukes MD Unavailable [phone] Arianne Alarcon APRN, HUMAN RESOURCES BENEFITS SPECIALIST Primary Care Provider [phone] Lito Chatterjee MD Unavailable [phone] Gustabo Falk MD Unavailable [phone] Amrit Goddard MD Unavailable Phan Grant MD Unavailable [phone] Reason for Visit * Reason Comments Medication Refill Encounter Details Date Type Department Care Team (Late st Contact Info) Description 12/08/2021 Refill [facility] - Neurology [facility] [address] [place] [address] Jack Dukes MD [address] [place] [address] Medication Refill Social History Tobacco Use Types Packs/Day Years Used Date Smoking Tobacco: Never Smokeless Tobacco: Never Alcohol Use Standard Drinks/Week Comments No 0 (1 standard drink = 0.6 oz pur e alcohol) Comments No Sex and Gender Information Value Date Recorded Sex Assigned at Not on file Legal Sex Female 2:52 AM HOUSEPERSON Gender Identity Not on file Sexual Orientation Not on file 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 Not on file Not on file Not [...] st Contact Info) Description 08/25/2025 2:00 PM HOUSEPERSON Office Visit [facility] Oncology Services [address] [place] [address] Phan Grant MD [address] [place] [address] Discharge Disposition: Discharged to home or Selfcare documented as of this encounter Visit Diagnoses Diagnosis Seizures (HCC) Other convulsions documented in this encounter Care Teams Varitype Operator Relationship Specialty Start Date End Date Arianne Alarcon APRN, CNP [address] [place] [address] PCP - General Family Medicine 08/29/16 Jack Dukes MD [address] [place] [address] Consulting Physician Neurology 08/21/16 Lito Chatterjee MD [address] [place] [address] Consulting Physician General Surgery 04/27/19 Gustabo Falk MD [address] [place] [address] Consulting Physician Radiation Oncology 04/27/19 Amrit Goddard MD [address] [address] Consulting Physician General Surgery 06/08/19 Phan Grant MD [address] [place] [address] Consulting Physician Medical Oncology 02/16/20 documented as of this encounter
--- OUTSIDE RECORDS SUMMARY | 2024-10-11 18:01 | XMS_ITS | Encounter Summary ---
Author Organization [facility] Address [address] [facility] [place] [address] Phone Care Team Providers Care Tonsorial Artist Name Role Phone Jack Dukes MD Unavailable [phone] Arianne Alarcon APRN, CNP Primary Care Provider [phone] Lito Chatterjee MD Unavailable Gustabo Falk MD Unavailable [phone] Amrit Goddard MD Unavailable Phan Grant MD Unavailable [phone] Reason for Visit * Reason Comments Medication Refill Encounter Details Date Type Department Care Team (Late st Contact Info) Description 05/22/[address] 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 No / Unsure 05/22/2020 3:41 PM ORDNANCE ENGINEER documented as of this encounter Miscellaneous Notes * Telephone Encounter - Tanya Hylton APN, CNP - 05/26/2020 2:17 PM ORDNANCE ENGINEER Refill Lorazepam 0.5 mg tabs, 1 tab BID as needed. # 60 tabs, 3 refills. ANCE ENGINEER documented in this encounter Plan of Treatment Upcoming Encounters Date Type Department Care Team (Late st Contact Info) Description 08/25/2025 2:00 PM ORDNANCE ENGINEER [facility] [address] [place] [address] Phan Grant MD [address] [place] [address] Discharge Disposition: Discharged to home or Selfcare documented as of this encounter Visit Diagnoses Not on filedocumented in this encounter Care Teams Tonsorial Artist Relationship Specialty Start Date End Date Arianne Alarcon APRN, CNP [address] [place] [address] PCP - General Family Medicine 08/29/16 Jack Dukes MD [address] [place] [address] Consulting Physician Neurology 08/21/16 Lito Chatterjee MD [address] [place] [address] Consulting Physician General Surgery 04/27/19 Gustabo Falk MD [address] [address] Consulting Physician Radiation Oncology 04/27/19 Amrit Goddard MD [address] [address] Consulting Physician General Surgery 06/08/19 Phan Grant MD [address] [place] [address] Consulting Physician Medical Oncology 02/16/20 documented as of this encounter
--- OUTSIDE RECORDS SUMMARY | 2024-10-11 18:01 | XMS_ITS | Encounter Summary ---
Author Organization [facility] Address [address] [place] [address] Phone Care Team Providers Care Media Services Director Name Role Phone Jack Dukes MD Unavailable [phone] Arianne Alarcon APRN, FREIGHT AIR BRAKE FITTER Primary Care Provider [phone] Lito Chatterjee MD Unavailable [phone] Gustabo Falk MD Unavailable [phone] Amrit Goddard MD Unavailable Phan Grant MD Unavailable [phone] Reason for Visit * Reason Comments Medication Refill Encounter Details Date Type Department Care Team (Late st Contact Info) Description 06/26/2022 Refill [facility] [address] [place] [address] Jack Dukes MD [address] [place] [address] Medication Refill Social History Tobacco Use Types Packs/Day Years Used Date Smoking Tobacco: Never Smokeless Tobacco: Never Alcohol Use Standard Drinks/Week Comments No 0 (1 standard drink = 0.6 oz pur e alcohol) Comments No Sex and Gender Information Value Date Recorded Sex Assigned at Not on file Legal Sex Female 2:52 AM SPECIAL EDUCATION DIRECTOR Gender Identity Not on file Sexual Orientation Not on file 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 Not on file Not on file Not on file documented as of this encounter Plan of Treatment Upcoming Encounters Date Type Department Care Team (Late st Contact Info) Description 08/25/2025 2:00 PM SPECIAL EDUCATION DIRECTOR [facility] Oncology Services [address] [place] [address] Phan Grant MD [address] [place] [address] Discharge Disposition: Discharged to home or Selfcare documented as of this encounter Visit Diagnoses Diagnosis 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) documented in this encounter Care Teams Media Services Director Relationship Specialty Start Date End Date Arianne Alarcon APRN, CNP [address] [place] [address] PCP - General Family Medicine 08/29/16 Jack Dukes MD [address] [place] [address] Consulting Physician Neurology 08/21/16 Lito Chatterjee MD [address] [place] [address] Consulting Physician General Surgery 04/27/19 Gustabo Falk MD [address] [place] [address] Consulting Physician Radiation Oncology 04/27/19 Amrit Goddard MD [address] [address] Consulting Physician General Surgery 06/08/19 Phan Grant MD [address] [place] [address] Consulting Physician Medical Oncology 02/16/20 documented as of this encounter
--- OUTSIDE RECORDS SUMMARY | 2024-10-11 18:01 | XMS_ITS | Encounter Summary ---
Author Organization [facility] Address [address] [place] [address] Phone Care Team Providers Care Core Analysis Operator Name Role Phone Jack Dukes MD Unavailable [phone] Arianne Alarcon APRN, HAIRSPRING INSPECTOR Primary Care Provider [phone] Lito Chatterjee MD Unavailable [phone] Gustabo Falk MD Unavailable [phone] Amrit Goddard MD Unavailable Phan Grant MD Unavailable [phone] Reason for Visit * Reason Comments Medication Refill Encounter Details Date Type Department Care Team (Late st Contact Info) Description 05/24/2022 Refill [facility] - Neurology [facility] [address] [place] [address] Jack Dukes MD [address] [place] [address] Medication Refill Social History Tobacco Use Types Packs/Day Years Used Date Smoking Tobacco: Never Smokeless Tobacco: Never Alcohol Use Standard Drinks/Week Comments No 0 (1 standard drink = 0.6 oz pur e alcohol) Comments No Sex and Gender Information Value Date Recorded Sex Assigned at Not on file Legal Sex Female 2:52 AM CONTINUITY TESTER Gender Identity Not on file Sexual Orientation Not on file 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 Not on file Not on file Not on file documented as of this encounter Plan of Treatment Upcoming Encounters Date Type Department Care Team (Late st Contact Info) Description 08/25/2025 2:00 PM CONTINUITY TESTER Office Visit [facility] Oncology Services [address] [place] [address] Phan Grant MD [address] [place] [address] Discharge Disposition: Discharged to home or Selfcare documented as of this encounter Visit Diagnoses Diagnosis Seizures (HCC) Other convulsions documented in this encounter Care Teams Core Analysis Operator Relationship Specialty Start Date End Date Arianne Alarcon APRN, CNP [address] [place] [address] PCP - General Family Medicine 08/29/16 Jack Dukes MD [address] [place] [address] Consulting Physician Neurology 08/21/16 Lito Chatterjee MD [address] [place] [address] Consulting Physician General Surgery 04/27/19 Gustabo Falk MD [address] [place] [address] Consulting Physician Radiation Oncology 04/27/19 Amrit Goddard MD [address] [address] Consulting Physician General Surgery 06/08/19 Phan Grant MD [address] [place] [address] Consulting Physician Medical Oncology 02/16/20 documented as of this encounter
--- OUTSIDE RECORDS SUMMARY | 2024-10-11 18:01 | XMS_ITS | Encounter Summary ---
Author Organization [facility] Address [address] [facility] [address] Phone Care Team Providers Care Shuttle Preparation Supervisor Name Role Phone Jack Dukes MD Unavailable [phone] Arianne Alarcon APRN, LABOR MEDIATOR Primary Care Provider Lito Chatterjee MD Unavailable [phone] Gustabo Falk MD Unavailable [phone] Alfred Ochoa MD Unavailable Amrit Goddard MD Unavailable Phan Grant MD Unavailable [phone] Reason for Visit * Reason Comments Medication Refill Encounter Details Date Type Department Care Team (Late st Contact Info) Description 12/13/[facility] [address] [place] [address] Alfred Ochoa MD [address] [place] [address] Medication Refill Social History Tobacco Use Types Packs/Day Years Used Date Smoking Tobacco: Never Smokeless Tobacco: Never Alcohol Use Standard Drinks/Week Comments No 0 (1 standard drink = 0.6 oz pur e alcohol) Comments No Sex and Gender Information Value Date Recorded Sex Assigned at Not on file Legal Sex Female 2:52 AM GIRL [place] Gender Identity Not on file Sexual Orientation Not on file 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 Not on file Not on file Not on file documented as of this encounter Miscellaneous Notes * Telephone Encounter - Nikki Martin RN - 12/13/2019 4:12 PM CDT Refilled Ativan #60 no refills patient to f/u in January documented in this encounter Plan of Treatment Upcoming Encounters Date Type Department Care Team (Late st Contact Info) Description 08/25/2025 2:00 PM GIRL [place] [facility] [address] [place] [address] Phan Grant MD [address] [place], [place] [address] Discharge Disposition: Discharged to home or Selfcare documented as of this encounter Visit Diagnoses Not on filedocumented in this encounter Care Teams Shuttle Preparation Supervisor Relationship Specialty Start Date End Date Arianne Alarcon APRN, CNP [address] [place] [address] PCP - General Family Medicine 08/29/16 Jack Dukes MD [address] [place] [address] Consulting Physician Neurology 08/21/16 Lito Chatterjee MD [address] [place] [address] Consulting Physician General Surgery 04/27/19 Gustabo Falk MD [address] [place], [place] [address] Consulting Physician Radiation Oncology 04/27/19 Alfred Ochoa MD [address] [address] Consulting Physician Medical Oncology 04/27/19 02/15/20 Amrit Goddard MD #[address] [address] Consulting Physician General Surgery 06/08/19 Phan Grant MD [address] [place] [address] Consulting Physician Medical Oncology 02/16/20 documented as of this encounter
--- OUTSIDE RECORDS SUMMARY | 2024-10-11 18:01 | XMS_ITS ---
Author Organization [facility] Address [address] [place] [address] Care Team Providers Care Senior Water Resources Engineer Name Role Phone Arianne Alarcon NP Primary Care Provider [phone] Derrick Walker MD Unavailable [phone] Active Problems Problem Noted Date Diagnosed Date Alcohol withdrawal syndrome, uncomplicated 08/04 Hx of breast cancer 07/31/2020 Overview (07/31/2020): Added automatically from request for surgery [id number] History of breast cancer 02/10/2020 Overview (02/10/2020): Added automatically from request for surgery [id number] Anxiety 02/08/2020 Sensory neuropathy 02/08/2020 Nodule of [...]
--- OUTSIDE RECORDS SUMMARY | 2024-10-11 18:01 | XMS_ITS | Encounter Summary ---
Author Organization [facility] Address [address] [place] [address] Care Team Providers Care Heating Repair Technician Name Role Phone Arianne Alarcon NP Primary Care Provider [phone] Derrick Walker MD Unavailable [phone] Encounter Details Date Type Department Care Team (Late st Contact Info) Description 04/04/2020 Telephone [facility] Surgeon [address] [place] [address] Brittany De Guzman MD [address] [place], [place] [id number] Social History Tobacco Use Types Packs/Day Years Used Date Smoking Tobacco: Never Smokeless Tobacco: Never Alcohol Use Standard Drinks/Week Comments No 0 (1 standard drink = 0.6 oz pur e alcohol) Comments No Sex and Gender Information Value Date Recorded Sex Assigned at Not on file Legal Sex Female 12:33 AM TREATER HELPER Gender Identity Female 06/06/2021 8:34 AM TREATER HELPER Sexual Orientation Straight 06/06/2021 8: 34 AM TREATER HELPER documented as of this encounter Plan of Treatment Not on file documented as of this encounter Visit Diagnoses Not on filedocumented in this encounter Additional Health Concerns Infection Onset Date Last Indicated Resolved Time 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 07/24/2020 07/31/2020 11/21/2020 3:05 AM C DT COVID: Suspected 08/04/2024 08/04/2024 08/04/2024 12:25 PM TREATER HELPER documented as of this encounter Care Teams Heating Repair Technician Relationship Specialty Start Date End Date Arianne Alarcon NP [address] [place] [address] PCP - General 04/24/17 Derrick Walker MD [address] [place] [address] Consulting Physician Plastic Surgery 12/25/19 documented as of this encounter
--- OUTSIDE RECORDS SUMMARY | 2024-10-11 18:02 | XMS_ITS | Clinical Summary ---
Author Organization [facility] Address [address] [place] [address] Care Team Providers Care White Mixing Operator Name Role Phone Alarcon, Arianne FLORES Primary Care Provider [phone] Source Comments [facility],non-owned Affiliates and Associated Physician Practices is amultiple site organization consisting of ambulatory clinics and hospital sitesin [place], [place], [place] and [place]. This disclosure is being madepursuant to the Care Everywhere program and may not contain all information available regarding this patient. Last updated 18.[facility] Allergies Active Allergy Reactions Criticality Noted Date [...] - 19+ 3-dose series) 1995 COVID-19 VACCINE ( - 2023- season) 2024 DEPRESSION SCREENING 07/07/2024 INFLUENZA VACCINE (Season Ended) 2025 06/27/2021, 04/07/2020, 05/25/2019, Additional history exists SCREENING FOR DIABETES 03/07/2025 03/07/2022 ZOSTER VACCINE (1 of 2) 2026 DTAP/TDAP/TD VACCINES (2 - Td or Tdap) 03/07/2032 03/07/2022 HIB VACCINE Aged Out No longer eligi ble based on patient's age to complete this topic HPV VACCINE Aged Out No longer eligi ble based on patient's age to complete this topic MENINGOCOCCAL (Group B) VACCINE SHARED DECISION-MAKING Aged Out No longer eligible based on patient's age to complete this topic MENINGOCOCCAL GROUPS A/C/Y/W VACCINE Aged Out No longer eligible based [...] 7 - 26 mg/dL 03/07/2022 5:42 AM CDT [facility] Creatinine 0.70 0.56 - 0.96 mg/dL 03/07/2022 5:42 AM [facility] Sodium 145 136 - 145 mmol/L 03/07/2022 5:42 AM [facility] Potassium 3.9 3.5 - 4.5 mmol/L 03/07/2022 5:42 AM [facility] Chloride 112(H) 98 - 107 mmol/L 03/07/2022 5:42 AM [facility] CO2 22 22 - 29 mmol/L 03/07/2022 5:42 AM [facility] Glucose 131(H) 70 - 115 mg/dL 03/07/2022 5:42 AM [facility] Calcium 8.3(L) 8.4 - 10.2 mg/dL 03/07/2022 5:42 AM [facility] Anion Gap 15 8 - 18 03/07/2022 5:42 AM [facility] BUN/Creatinine Ratio 14 7 - 23 03/07/2022 5:42 AM [facility] Osmolality Calculated 301(H) 270 - 300 mOsm/kg 03/07/2022 5:42 AM [facility] eGFR by CKD-EPI >90 >=90 mL/min/1.7 3 m2 03/07/2022 5:42 AM [facility] Blood BLOOD SPECIMEN / Unknown Venipuncture / Unknown 03/07/2022 5:08 AM CDT 03/07/2022 5:14 AM [facility] Feroz Salazar MD LAB - CHEMISTRY ORD ERABLES [facility] [address] [place] [address], [facility] [phone] from Last 3 Months or Most Recently Relevant to Health Maintenance Care Teams White Mixing Operator Relationship Specialty Start Date End Date Arianne Alarcon APRN-TEACHING DIETITIAN [address] [place] [address] PCP - General 10/08/19
--- OUTSIDE RECORDS SUMMARY | 2024-10-11 18:02 | XMS_ITS ---
Author Organization [facility] Address [address] [place] [address] Care Team Providers Care Corporate Relations Director Name Role Phone Maximiliano Grady Primary Care Provider [facility], SR Adult ROLLY Unavailabl e [phone] Edinson Miller Unavailable [phone] REASON FOR VISIT Appointment Social History Sex Assigned At : Social History Observation Description Sex Assigned At Female Encounters Encounter Location Date Provider Diagnosis [address] [place] [address] 03/03/2024 Edinson Miller Plan Of Treatment No Information Progress Notes * Lu NGUYỄNDOB: [birth year] (48 yo F)Acc No.[id number]:03/03/2024 Patient: Lu WALKER :1975 A ge:48 Y S ex:Female Address:[place], [address] * true * Date: Generated for Printi ng/Faxing/eTransmitting on: 0 10/11/2024 06:02 PM CDT
--- OUTSIDE RECORDS SUMMARY | 2024-10-11 18:02 | XMS_ITS | Clinical Summary ---
Author Organization [facility] Address [address] [place] [address] Care Team Providers Care Senior Medical Billing Specialist Name Role Phone Unavailable Primary Care Provider [...] Comments Blood Pressure 102/70 06/15/2015 9:24 AM BLADE BONER Pulse 78 06/15/2015 9:24 AM BLADE BONER Temperature - - Respiratory Rate - - Oxygen Saturation - - Inhaled Oxygen Concentration - - Weight 68 kg (150 lb) 06/15/2015 9:24 AM BLADE BONER Height 167.6 cm (5' 6 ) 06/15/2015 9:24 AM BLADE BONER Body Mass Index 24.21 06/15/2015 9:24 AM BLADE BONER Plan of Treatment Health Maintenance Due Date [...] Vaccine ( - 2023-2 5 season) 2024 Meningococcal B Vaccine Aged Out No [...]
--- OUTSIDE RECORDS SUMMARY | 2024-10-11 18:02 | XMS_ITS | Clinical Summary ---
Author Organization [facility] Address [address] [place] [address] Phone Care Team Providers Care Promotions Executive Name Role Phone Jack Dukse MD Unavailable [phone] Arianne Alarcon APRN, GARMENT SORTER Primary Care Provider [phone] Lito Chatterjee MD Unavailable [phone] Gustabo Falk MD Unavailable [phone] Amrit Goddard MD Unavailable Phan Grant MD Unavailable [phone] Allergies Active Allergy Reactions Criticality Noted Date [...] hyclate (VIBRA-TABS) 100 MG Tablet 4 Active gabapentin (NEURONTIN) 300 MG CapsuleIndication s: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) TAKE ONE CAPSULE BY MOUTH THREE TIMES a DAY 90 Capsule 3 4 Active buPROPion SR (WELLBUTRIN SR) 150 MG TABLET SR 12 HR Take 1 Tablet by mouth daily. Active lamoTRIgine (LaMICtal) 200 MG TabletIndications :Seizures (HCC) TAKE ONE (1) TAB BY MOUTH TWO (2) TIMES DAILY. 60 Tablet 6 5 Active Active Problems Problem Noted Date Diagnosed Date Alcohol abuse 10/03/2024 Acute foot pain, left 08/11/2023 Skin rash 08/11/2023 Screen for colon cancer 08/21/2022 Acute right-sided low back pain with sciatica Sensory neuropathy 02/08/2020 Anxiety 02/08/2020 Peripheral neuropathy due to chemotherapy 2019 S/P vascular surgery 06/08/2019 Carcinoma of breast, estroge n and progesterone receptor negative, right 04/22/2019 Cancer Staging:Clinical stage from 04/27/2019:Stage IIB(cT2, cN0, cM0, G3, ER+, WY-, HER2-) - Signed by Gustabo Falk MD on 04/28/2019 Pathologic stage from 04/27/2019:Stage IIB(pT2, pN1mi(sn), cM0, G3, ER+, WY-, HER2-) - Unsigned Premenopausal patient 04/22/2019 Seizures [...] Encounters Date Type Department Care Team Description 09/02/2024 Refill [facility] - Neurology - [place] [address] [place] [phone] Jack Dukes MD Medication Refill 08/26/2024 1:20 PM DIGITAL LEARNING PLATFORMS MANAGER [facility] [address] [place] [phone] Phan Grant MD Carcinoma of breast, estrogen and progesterone receptor negative, right (HCC) (Primary Dx); Sensory neuropathy; Alcohol abuse Discharge Disposition: Discharged to home or Selfcare 08/26/2024 Travel 08/26/2024 Transcribe Orders [facility] Services [address] [place] [phone] Arianne Alarcon APRN, CNP Mixed hyperlipidemia (Primary Dx); Alcohol abuse, uncomplicated; Gastroesophageal reflux disease without esophagitis 08/23/2024 Travel from Last 3 Months Family History [...] on file Legal Sex Female 2:52 AM DIGITAL LEARNING PLATFORMS MANAGER Gender Identity Not on file Sexual Orientation Not on file 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 Date Job End 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1 cm (5' 5 ) 07/09/2024 8:05 PM DIGITAL LEARNING PLATFORMS MANAGER Body Mass Index 24.68 07/09/2024 8:05 PM DIGITAL LEARNING PLATFORMS MANAGER Plan of Treatment Upcoming Encounters Date Type Department Care Team (Late st Contact Info) Description 08/25/2025 2:00 PM DIGITAL LEARNING PLATFORMS MANAGER [facility] [address] [place] [phone] Phan Grant MD [address] [place] [address] Discharge Disposition: Discharged to home or Selfcare Health Maintenance Due Date Last Done Comments Hepatitis C Virus (HCV) Screening 1976 SARS-COV-2 Immunization (#1) 1981 Hepatitis B Immunization (1 of 3 - 19+ 3-dose series) 1995 Pneumococcal Immunization Combined (1 of 2 - PCV) 1995 Pap Smear 1997 Cervical Cancer Screening (CCS) 2006 HPV/Cotest 2006 Colonoscopy 2021 Colorectal Cancer Screening 2021 Respiratory Syncytial Virus (RSV) Immunization (Adult) (1 - 1-dose 75+ series) 2051 DTaP/Tdap/Td Immunization Discontinued 2021, 02/19/2011, 02/16/2009 TdaP Immunization Completed 03/07/2022 Discussion re Starting/Frequency of Mammograms Completed 01/22/2024, 10/12/2019, 03/26/2019, Additional history exists Mammogram Unilateral Discontinued 01/22/2024, 10/12/2019, 03/26/2019, Additional history exists Influenza Immunization Completed , 06/27/2021, 04/07/2020, Additional history exists Meningococcal Immunization (ACWY) Aged Out No longer eligible based on patient's age to complete this topic Rotavirus Immunization Aged Out No lo nger eligible based on patient's age to complete this topic Medical Devices Implanted Type Area Freight Sorter Device Identifier Shelf Expiration Date Model / Serial / Lot Port Implantable Infusion Powerport Mri Airguard Chronoflex 8fr 1 Lumen Attachable Cath Intermediate - [id number] Implanted:Qty: 1 on 05/11/2019 by Lito Chatterjee MD at [facility] IMPLANT Left: Chest BARD ACCESS SYSTEMS 11/03/2020 [id number] / [id number] / [id number] Procedures Procedure Name Priority Date/Time Associated Diagnosis [...] copy. Current study was also evaluated with WO FundingD version 7.2. CLINICAL: Diagnostic study. 6 month follow up post lumpectomy right breast. Patient states feeling a palpable lump that is marked on imaging for approximately 3 months. COMPARISONS: Comparison is made to exam dated: 03/15/2019 [facility]. BREAST TISSUE:There are scattered fibroglandular densities [...] signed by: Mya Patel M.D. ll/:10/12/2019 15:03:41 Cost Accounting Manager: Lisa Eaton)(Walter), [facility] letter sent: Birad 3 Followup Reading location: [place] OVERALL STUDY BIRADS: 3 Probably benign Procedure [...] copy. Current study was also evaluated with ThinkLink version 7.2. CLINICAL: Diagnostic study. 6 month follow up post lumpectomy right breast. Patient states feeling a palpable lump that is marked on imaging for approximately 3 months. COMPARISONS: Comparison is made to exam dated: 03/15/2019 [facility]. BREAST TISSUE:There are scattered fibroglandular densities [...] signed by: Mya Patel M.D. ll/:10/12/2019 15:03:41 Cost Accounting Manager: Lisa Mckeon(Manuel)(M), [facility] letter sent: Birad 3 Followup Reading location: [place] OVERALL STUDY BIRADS: 3 Probably benign us Lito Chatterjee MD IMG MAMMO ORDERABLES Final Result from Last 3 Months or Most Recently Relevant to Health Maintenance Insurance MEDICAID [place] Advance Directives Documents on File Type Date Recorded Patient Car Record Clerk Expl anation Power of Civil Engineering Drafter for Health Care 05/27/2019 11:53 AM POA-HC 05/27/19 Advance Care Planning Discussion 05/27/2019 11:33 AM ACP DISCUSSION RECOR D 05/27/19 Care Teams Promotions Executive Relationship Specialty Start Date End Date Arianne Alarcon APRN, GARMENT SORTER [address] [place] [address] PCP - General Family Medicine 08/29/16 Jack Dukes MD [address] [place] [phone] Consulting Physician Neurology 08/21/16 Lito Chatterjee MD [address] [place] [address] Consulting Physician General Surgery 04/27/19 Gustabo Falk MD [address] [place] [address] Consulting Physician Radiation Oncology 04/27/19 Amrit Goddard MD [address] [address] Consulting Physician General Surgery 06/08/19 Phan Grant MD [address] [place] [address] Consulting Physician Medical Oncology 02/16/20
--- OUTSIDE RECORDS SUMMARY | 2024-10-11 18:02 | XMS_ITS | Encounter Summary ---
Author Organization [facility] Address [address] [place] [address] Phone Care Team Providers Care Box Liner Name Role Phone [place] Dukes MD Unavailable [phone] Arianne Alarcon APRN, SEWING MACHINE OPERATOR PAPER BAGS Primary Care Provider [phone] Lito Chatterjee MD Unavailable [phone] Gustabo Falk MD Unavailable [phone] Amrit Goddard MD Unavailable Phan Grant MD Unavailable [phone] Reason for Visit * Reason Comments Medication Refill Encounter Details Date Type Department Care Team (Late st Contact Info) Description 09/05/2022 Refill [facility] - Neurology [facility] [address] [place] [address] Jack Dukes MD [address] [place] [address] Medication Refill Social History Tobacco Use Types Packs/Day Years Used Date Smoking Tobacco: Never Smokeless Tobacco: Never Alcohol Use Standard Drinks/Week Comments No 0 (1 standard drink = 0.6 oz pur e alcohol) Comments No Sex and Gender Information Value Date Recorded Sex Assigned at Not on file Legal Sex Female 2:52 AM MAPPING SUPERVISOR Gender Identity Not on file Sexual Orientation Not on file 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 Date Job End Date 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 No / Unsure 08/21/2022 2:16 PM MAPPING SUPERVISOR documented as of this encounter Miscellaneous [...] Provider Dept 08/01/22 Telemedicine [place] Dukes MD [facility] Neurology [facility] Showing recent visits within past 365 days and meeting all other requirements Future Appointments No visits were found meeting these conditions. Showing future appointments within next 90 days and meeting all other requirements ING SUPERVISOR documented in this encounter Plan of Treatment Upcoming Encounters Date Type Department Care Team (Late st Contact Info) Description 08/25/2025 2:00 PM MAPPING SUPERVISOR [facility] [address] [place] [address] Phan Grant MD [address] [place], [place] [phone] Discharge Disposition: Discharged to home or Selfcare documented as of this encounter Visit Diagnoses Diagnosis Seizures (HCC) Other convulsions documented in this encounter Care Teams Box Liner Relationship Specialty Start Date End Date Arianne Alarcon APRN, SEWING MACHINE OPERATOR PAPER BAGS [address] [place] [address] PCP - General Family Medicine 08/29/16 [place] Dukes MD [address] [place] [phone] Consulting Physician Neurology 08/21/16 Lito Chatterjee MD [address] [place] [address] Consulting Physician General Surgery 04/27/19 Gustabo Falk MD [address] [place] [address] Consulting Physician Radiation Oncology 04/27/19 Amrit Goddard MD [address] [address] Consulting Physician General Surgery 06/08/19 Phan Grant MD [address] [place] [address] Consulting Physician Medical Oncology 02/16/20 documented as of this encounter
--- OUTSIDE RECORDS SUMMARY | 2024-10-11 18:02 | XMS_ITS | Encounter Summary ---
Author Organization [facility] Address [address] [place] [address] Phone Care Team Providers Care Jingle Writer Name Role Phone [place] Dukes MD Unavailable [phone] Arianne Alarcon APRN, LAP HAND TOOL Primary Care Provider [phone] Lito Chatterjee MD Unavailable [phone] Gustabo Falk MD Unavailable [phone] Amrit Goddard MD Unavailable Phan Grant MD Unavailable [phone] Reason for Visit * Reason Comments Medication Refill Encounter Details Date Type Department Care Team (Late st Contact Info) Description 01/01/2023 Refill [facility] - Neurology [facility] [address] [place] [address] [place] Dukes MD [address] [place] [address] Medication Refill Social History Tobacco Use Types Packs/Day Years Used Date Smoking Tobacco: Never Smokeless Tobacco: Never Alcohol Use Standard Drinks/Week Comments No 0 (1 standard drink = 0.6 oz pur e alcohol) Comments No Sex and Gender Information Value Date Recorded Sex Assigned at Not on file Legal Sex Female 2:52 AM WHIRLEY OPERATOR Gender Identity Not on file Sexual Orientation Not on file 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 Showing future appointments within next 90 days and meeting all other requirements documented in this encounter Plan of Treatment Upcoming Encounters Date Type Department Care Team (Late st Contact Info) Description 08/25/2025 2:00 PM WHIRLEY OPERATOR [facility] [address] [place] [phone] Phan Grant MD [address] [place] [address] Discharge Disposition: Discharged to home or Selfcare documented as of this encounter Visit Diagnoses Diagnosis Seizures (HCC) Other convulsions documented in this encounter Care Teams Jingle Writer Relationship Specialty Start Date End Date Arianne Alarcon APRN, ROMEL [address] [place] [address] PCP - General Family Medicine 08/29/16 [place] Dukes MD [address] [place] [address] Consulting Physician Neurology 08/21/16 Lito Chatterjee MD [address] [place] [address] Consulting Physician General Surgery 04/27/19 Gustabo Falk MD [address] [place] [address] Consulting Physician Radiation Oncology 04/27/19 Amrit Goddard MD [address] [facility] [place] [place] [address] [address] Consulting Physician General Surgery 06/08/19 Phan Grant MD [address] [place] [address] Consulting Physician Medical Oncology 02/16/20 documented as of this encounter
--- OUTSIDE RECORDS SUMMARY | 2024-10-11 18:02 | XMS_ITS | Data Portability ---
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 visit to plastics for leaking implant tomorrow Not available 12/09/2023 12:15:09 Plan of Treatment Reminders Order Date Submit Date Provider Last Modified By Organization Details Last Modified Time Details Appointments ANY 15 2024 08:15A Walter River APN, [employer] Not available Not available Not available ANNUAL 30 2024 01:30P Walter Townsend MD Not available Not available Not available Lab hepatit is panel (A+B+C) , acute, serum 2024 025 jschulterma [facility], [address] [facility], [facility], [place], [address], 10/07/2024 12:07:35 unliste d lab - toxassu re flex 23, ur-23 35-P 2024 025 jschulterma [facility], [address] [facility], [place], [address], 10/07/2024 12:07:35 drug screen, urine 2024 025 [facility]schulterma [facility], [address] [place], [address], 09/02/2024 11:59:31 CBC w/ auto diff 2024 025 jschulterma [facility], [address] [place] [address], [place], [address], 10/07/2024 12:07:35 CMP, serum or plasma 2024 025 jschulterma [facility], [address] [place] [address], [place], [address], 10/07/2024 12:07:35 CBC 2024 025 jschulterma [facility]/ Lab, [address] [place], [address], 10/07/2024 12:07:35 CMP, serum or plasma 2024 025 jschulterma [facility] ([facility]) Registration/ Lab, [address] [place], [address], 10/07/2024 12:07:36 lipid panel, serum 2024 025 jschulterma [facility], [address] [place] [address], [place], [address], 10/07/2024 12:07:35 lipid panel, serum 2024 025 jschulterma [facility] ([facility]) Registration/ Lab, [address] [place], [address], 10/07/2024 12:07:35 CMP, serum or plasma 2023 024 JULISSA [facility], [address] [place] [address], [place], [address], 04/21/2024 10:37:56 amylase + lipase, serum 2023 024 JUL[facility], [address] [facility], [facility], [place], [address], 04/21/2024 10:37:57 hepatit is panel (A+B+C) , acute, serum 2023 024 JULISSA [facility], [address] [facility], [facility], [place], [address], 04/21/2024 10:37:52 lipid panel, serum 2023 024 SAL[facility], [address] [place] [address], [facility], [place], [address], 04/21/2024 10:37:54 cytolog y report, thin prep, smear or scrapin g, cervica l or vaginal 2023 024 SALAMANCA [facility], [address] [place] [address], [facility], [place], [address], 12/12/2023 16:27:02 Referral None recorde d. Procedures None recorde d. Surgeries None recorde d. Imaging None recorde d. Medication Orders escital opram 20 mg tablet 2024 025 [facility], [address], [place], [address], 08/26/2024 09:33:01 Patient TargetsNo targets recorded. Patient Instructions Encounter Date Encounter Id Patient Instructions Last Modified By Organization Details Last Modified Time 10/28/2023 [id number] When You Want to Lose Weight: Care [...] care: none Not available 10/28/2023 15:14:09 12/09/2023 [id number] A healthy lifest yle: care instructions Not available 12/09/2023 12:15:10 01/13/2024 [id number] When You Want to Lose Weight: Care [...] care: none Not available 01/13/2024 16:57:38 04/14/2024 [id number] A healthy lifest yle: care instructions Not available 04/14/2024 14:57:08 reduce fatty shanon ds, avoid tylenol, alcohol Not available 04/14/2024 14:56:28 dwp labs needed, plan pending results Not available 04/14/2024 14:56:08 08/26/2024 [id number] influenza (flu) vaccine: care instructions Not available 08/26/2024 09:32:26 insomnia: care instructions Not available 08/26/2024 09:32:26 learning about m ood disorders Not available 08/26/2024 09:32:26 high cholesterol : care instructions Not available 08/26/2024 09:32:26 Increase intake of fresh fruits, and vegetables. Avoid packaged foods and fast foods. Follow a low salt diet, drink at least 8-10 8oz glasses of water a day, exercise most days of the week. Take all medications as prescribed. Keep appointments with PCP and all specialists. Not available 09/03/2024 11:22:20 f/u 3 months if pt is able to complete drug screen and resume ambien DWP barriers to care: none Not available 09/03/2024 11:22:40 Reason for Referral None Reported. Results Created Date Observation Date Name Description Value Unit Range Abnormal Flag Note LastModifiedBy Organization Detail LastModifiedTime 12/09/19 24 12/12/2023 IGP, RFX APTIM A HPV ASCU diagnosis: COMMEN T NEGAT EMANUEL FOR INTRA EPITH ELIAL LESYOLIE N OR KEEGAN REDDING . CELLU LAR COPPOLA ES ASSOC IATED WITH DAMON MEYERTI ON ARE PRESE NT. Not Available [facility] ([facility]) [address] [place], [address], 12/12/2023 16:27:02 12/09/19 24 12/12/2023 IGP, RFX APTIM A HPV ASCU specimen adequacy: COMMEN T Satis facto ry for evalu ation . Endoc ervic al and/o r squam ous metap lasti c cells (endo cervi olamide compo nent) are prese nt. Not Available [facility] ([facility]) [address] [place], [address], 12/12/2023 16:27:02 12/09/19 24 12/12/2023 IGP, RFX APTIM A HPV ASCU clinician provided ICD10: COMMEN T Z01.4 19 Not Available [facility] ([facility]) [address] [place], [address], 12/12/2023 16:27:02 12/09/19 24 12/12/2023 IGP, RFX APTIM A HPV ASCU performed by: JELLY bah Willi ams, Cytot echmichael hutchison t (ASCP ) Not Available [facility] ([facility]) [address] [place], [address], 12/12/2023 16:27:02 12/09/19 24 12/12/2023 IGP, RFX APTIM A HPV ASCU . . Not Available [facility] ([facility]) [address] [place], [address], 12/12/2023 16:27:02 12/09/19 24 12/12/2023 IGP, RFX APTIM A HPV ASCU note: JELLY Matos The Pap smear is a scree [place]allas test jairo sarabia to aid in the detec tion of manny ligna nt and malig nant condi tions of the uteri ne cervi x. It is not a diagn ostic proce dure and shoul d not be used as the sole means of detec ting cervi olamide cance r. Both false -posi tive and false -nega tive repor ts do occur . Not Available [facility] ([facility]) [address] [place], [address], 12/12/2023 16:27:02 12/09/19 24 12/12/2023 IGP, RFX APTIM A HPV ASCU test methodology: JELLY Matos This liqui d based ThinP rep(R ) pap test was scree cornell with the use of an image guide tammy verde. Not Available [facility] ([facility]) [address] [place], [address], 12/12/2023 16:27:02 12/09/19 24 12/12/2023 IGP, RFX APTIM A HPV ASCU . COMMEN T The HPV DNA refle x crite karla were not met with this speci men resul t there fore, no HPV testi ng was perfo rmed. Not Available [facility] ([facility]) [address] [facility], [place], [address], 12/12/2023 16:27:02 04/20/2004/21/2024 ACUTE HEPAT ITIS hep A Ab, IgM NEGATI VE negati ve A negat emanuel anti- HAV IgM resul t sugge sts no recen t or curre nt HAV infec tion. Not Available [facility] ([facility]) [address] [facility], [place], [address], 04/21/2024 10:37:52 04/20/2004/21/2024 ACUTE HEPAT ITIS HBsAg screen NEGATI VE negati ve Not Available [facility] ([facility]) [address] [facility], [place], [address], 04/21/2024 10:37:52 04/20/20 24 04/21/2024 ACUTE HEPAT ITIS hep B core Ab, IgM NEGATI VE negati ve Not Available [facility] ([facility]) [address] [facility], [place], [address], 04/21/2024 10:37:52 04/20/2004/21/2024 ACUTE HEPAT ITIS HCV Ab NON REACTI VE nonrea ctive Not Available [facility] ([facility]) [address] [place], [address], 04/21/2024 10:37:52 04/20/2004/21/2024 INTER PRETA TION: interpretati on: Commen t Not infec geri with HCV unles s early or acute infec tion is suspe cted (whic h may be delay ed in an immun ocomp romis ed indiv idual ), or other evide nce exist s to indic ate HCV infec tion. Not Available [facility] ([facility]) [address] [facility], [place], [address], 04/21/2024 10:37:53 04/20/2004/21/2024 LIPID PANEL cholesterol, total 247 mg/dL 100-19 9 above high normal Not Available [facility] ([facility]) [address] [place], [address], 04/21/2024 10:37:54 04/20/2004/21/2024 LIPID PANEL triglyceride s 232 mg/dL 0-149 above high normal Not Available [facility] ([facility]) [address] [place], [address], 04/21/2024 10:37:54 04/20/2004/21/2024 LIPID PANEL HDL cholesterol 62 mg/dL >39 Not Available [facility] ([facility]) [address] [place], [address], 04/21/2024 10:37:54 04/20/2004/21/2024 LIPID PANEL VLDL cholesterol olamide 42 mg/dL 5-40 above high normal Not Available [facility] ([facility]) [address] [place], [address], 04/21/2024 10:37:54 04/20/2004/21/2024 LIPID PANEL LDL chol calc ([facility]) 143 mg/dL 0-99 above high normal Not Available [facility] ([facility]) [address] [place], [address], 04/21/2024 10:37:54 04/20/2004/21/2024 COMP. METAB OLIC PANEL (14) glucose 97 mg/dL 70-99 Not Available [facility] ([facility]) [address] [place], [address], 04/21/2024 10:37:56 04/20/20 24 04/21/2024 COMP. METAB OLIC PANEL (14) BUN 13 mg/dL 6-24 Not Available [facility] ([facility]) [address] [facility] [place] [place], [address], 04/21/2024 10:37:56 04/20/20 24 04/21/2024 COMP. METAB OLIC PANEL (14) creatinine 0.94 mg/dL 0.57-1 .00 Not Available [facility] ([facility]) [address] [facility], [place], [address], 04/21/2024 10:37:56 04/20/20 24 04/21/2024 COMP. METAB OLIC PANEL (14) eGFR 75 mL/mi n/1.7 3 >59 Not Available [facility] ([facility]) [address] [facility], [place], [address], 04/21/2024 10:37:56 04/20/20 24 04/21/2024 COMP. METAB OLIC PANEL (14) BUN/creatini ne ratio 14 9-23 Not Available [facility] ([facility]) [address] [facility], [place], [address], 04/21/2024 10:37:56 04/20/20 24 04/21/2024 COMP. METAB OLIC PANEL (14) sodium 139 mmol/ L 134-14 4 Not Available [facility] ([facility]) [address] [place], [address], 04/21/2024 10:37:56 04/20/20 24 04/21/2024 COMP. METAB OLIC PANEL (14) potassium 3.8 mmol/ L 3.5-5. 2 Not Available [facility] ([facility]) [address] [place], [address], 04/21/2024 10:37:56 04/20/20 24 04/21/2024 COMP. METAB OLIC PANEL (14) chloride 102 mmol/ L 96-106 Not Available [facility] ([facility]) [address] [place], [address], 04/21/2024 10:37:56 04/20/2004/21/2024 COMP. METAB OLIC PANEL (14) carbon dioxide, total 21 mmol/ L Not Available [facility] ([facility]) [address] [place], [address], 04/21/2024 10:37:56 04/20/2004/21/2024 COMP. METAB OLIC PANEL (14) calcium 9.8 mg/dL 8.7-10 .2 Not Available [facility] ([facility]) [address] [place], [address], 04/21/2024 10:37:56 04/20/2004/21/2024 COMP. METAB OLIC PANEL (14) protein, total 7.6 g/dL 6.0-8. 5 Not Available [facility] ([facility]) [address] [facility] [place], [address], 04/21/2024 10:37:56 04/20/2004/21/2024 COMP. METAB OLIC PANEL (14) albumin 4.7 g/dL 3.9-4. 9 Not Available [facility] ([facility]) [address] [place], [address], 04/21/2024 10:37:56 04/20/2004/21/2024 COMP. METAB OLIC PANEL (14) globulin, total 2.9 g/dL 1.5-4. 5 Not Available [facility] ([facility]) [address] [facility] [place], [address], 04/21/2024 10:37:56 04/20/2004/21/2024 COMP. METAB OLIC PANEL (14) bilirubin, total 0.3 mg/dL 0.0-1. 2 Not Available [facility] ([place] [facility]) [address] [facility], [place], [address], 04/21/2024 10:37:56 04/20/20 24 04/21/2024 COMP. METAB OLIC PANEL (14) alkaline phosphatase 106 IU/L 44-121 Not Available [facility] ([facility]) [address] [facility], [place], [address], 04/21/2024 10:37:56 04/20/20 24 04/21/2024 COMP. METAB OLIC PANEL (14) AST (SGOT) 19 IU/L 0-40 Not Available [facility] ([facility]) [address] [place], [address], 04/21/2024 10:37:56 04/20/20 24 04/21/2024 COMP. METAB OLIC PANEL (14) ALT (SGPT) 23 IU/L 0-32 Not Available [facility] ([facility]) [address] [place], [address], 04/21/2024 10:37:56 04/20/20 24 04/21/2024 TRICE+L IPASE amylase 38 U/L 31-110 Not Available [facility] ([facility]) [address] [place], [address], 04/21/2024 10:37:57 04/20/20 24 04/21/2024 TRICE+L IPASE lipase 23 U/L 14-72 Not Available [facility] ([facility]) [address] [place], [address], 04/21/2024 10:37:57 Result Notes None recorded. Problems Name Problem SNOMED Code Status Onset Date Resolution Date Notes Provider Name and Address Organization Details Recorded Time Invasive carcinom a of breast 352553666 Active 2018 Arianne River APN, [employer] Attn: Antoni g,[address], [place], [address], [facility] 1 11:43:49 COVID-19 271542317 Active 2020 Arianne River BLUEPRINTER, [employer] Attn: Antoni mayers,[address] [facility], [place], [address], [place] - [facility] 1 11:43:49 Allergic conditio n 179975178 Active 2010 Arianne River BLUEPRINTER, [employer] Attn: Antoni g,[address] 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, [place], [address], [place] [facility] 1 11:11:12 History of malignan t neoplasm of breast 454250847 Active 2019 Arianne River BLUEPRINTER, [employer] Attn: Antoni g,[address] [facility], [place], [address], [place] [facility] 1 11:43:49 Estrogen receptor negative neoplasm 944393904 Active 2018 Arianne River APN, [employer] Attn: Elainewillis g,[address] [facility], [place], [address], [place] [facility] 1 11:11:12 Peripher al neuropat hy due to and followin g antineop lastic therapy 757610013 Active 2019 Arianne River BLUEPRINTER, [employer] Attn: Accountin g,[address] [facility], [place], [address], [place] [facility] 1 11:11:12 Primary malignan t neoplasm of breast 543382771 Active 2019 Arianne River BLUEPRINTER, [employer] Attn: Antoni g,[address] [facility], [place], [address], [place] - [facility] 1 11:11:12 History of major vascular surgery 254541501 Active 2018 Arianne River APN [employer] Attn: Antoni mayers,[address] [facility], [place], [address], [place] - [facility] 1 11:43:49 Allergic rhinitis 36923427 Active 2008 Arianne River APN, [employer] Attn: Antoni mayers,[address] [facility], [place], [address], [place] - [facility] 1 11:43:49 Sensory neuropat hy 18050494 Active 2019 Arianne River APN [employer] Attn: Antoni mayers,[address] [facility], [place], [place], [address] [place] [address] 2, [place] - [facility] 1 11:43:49 Environm ental allergy 112632455 Active 2021 Arianne River APN [employer] Attn: Elainewillis mayers,[address] [facility], [place], [place], [address] [place] [address] 2, [place] - [facility] 2 12:52:33 Overweig ht 136352233 Active 2021 Arianne River APN, [employer] Attn: Antoni mayers,[address] [facility], [place], [address], [place] - [facility] 2 14:52:06 Gastroes ophageal reflux disease without esophagi tis 867542309 Active 2022 Arianne River APN, [employer] Attn: Elainewillis mayers,[address] [facility], [place], [address], [place] - [facility] 3 10:00:14 Pityrias is versicol or 30200887 Active 2022 Arianne River APN, [employer] Attn: Elainewillis mayers,[address] [place], [address], [place] - [facility] 3 23:45:13 Hyperlip idemia 43871359 Active 2024 Arianne River, BLUEPRINTER, [employer] Attn: Accountin g,[address] [facility], [place], [address], [facility] 5 09:27:45 History of alcohol abuse 344448550 Active 2024 Arianne River BLUEPRINTER, [employer] Attn: Accountin g,[address] [facility], [place], [address], [facility] 5 09:27:48 Allergy Active Arianne River BLUEPRINTER, [employer] Attn: Accountin g,[address] [facility], [place], [address] [place] [address] 2, [facility] 1 11:43:49 Depressi ve disorder 90241090 Active 2008 Arianne River BLUEPRINTER, [employer] Attn: Accountin g,[address] [facility], [place], [address] [place] [address] 2, [facility] 1 11:43:49 Anxiety 64682344 Active 2019 Arianne River BLUEPRINTER, [employer] Attn: Accountwillis g,[address] [facility], [place], [address] [place] [address] 2, [facility] 1 11:43:49 Seizure 25662659 Active 2009 Arianne River BLUEPRINTER, [employer] Attn: Accountin g,[address] [facility], [place], [address] [place] [address] 2, [facility] 1 11:43:49 Chronic low back pain 510553357 Active Arianne River BLUEPRINTER, [employer] Attn: Accountin g,[address] [facility], [place], [address] [place] [address] 2, [facility] 1 11:43:49 Migraine 16398016 Active Arianne River BLUEPRINTER, [employer] Attn: Accountin g,[address] [facility], [place], [address], [facility] 1 11:43:49 Insomnia 723295245 Active Ariannechristine River APN, [employer] Attn: Accountin g,[address] [facility], [place], [address], [place] - [facility] 1 11:43:49 Anemia 842879237 Active Ariannechristine River APN, [employer] Attn: Accountin g,[address] [facility], [place], [address], [place] - [facility] 1 11:43:49 Swollen legs Completed 02/06/2021 Arianne River APN, [employer] Attn: Accountin g,[address] [facility], [place], [address], [place] - [facility] 1 11:09:31 Chronic depressi on Active Ariannechristine River APN, [employer] Attn: Accountin g,[address] [facility], [place], [address], [place] - [facility] 1 11:43:48 Kidney stone 97279618 Active Ariannechristine River APN, [employer] Attn: Accountin g,[address] [facility], [place], [address], [place] - [facility] 1 11:43:49 Hyperkal emia 40797313 Completed 06/25/2016 Removal Reason: resolved Hanna Jones PA-C Attn: Antoni g,[address] [facility], [place], [address], [place] - [facility] 6 09:15:45 Acute sinusiti s 81741506 Completed 06/25/2016 Removal Reason: resolved Hanna Jones PA-C Attn: Accountin g,[address] [facility], [place], [address], [place] - [facility] 6 09:15:49 Amenorrh ea 02481564 Active Ariannechristine River APN, [employer] Attn: Accountin g,[address] [facility], [place], [address], [place] - [facility] 1 11:43:49 Acute bronchit is 13982747 Completed 06/25/2016 Removal Reason: resolved Hanna Jones PA-C Attn: Antoni mayers,[address] [facility], [place], [address], [facility] 6 09:15:11 Pregnanc y 87922913 Completed 201602/21/2017 Rhea Awadjackelin sen null, [place] - [place] 7 14:27:38 Problem Notes None recorded. Procedures Surgical History Date Name Laterality Status Provider Name and Address Organization Details Recorded Time 12/09/19 24 Date of Last Pap Smear completed Etelvina Obregon RN [facility] 12/12/2023 16:34:52 04/06/20 20 Tiss xpndr plmt brst rcnstj completed Patria Perdomo MA [facility] 07/31/2020 15:42:51 03/15/20 19 Most Recent Mammogram completed Daniela Steinberg MA [facility] 03/26/2019 08:31:16 04/24/20 17 Tubal Ligation completed Etelvina Obregon RN [facility] 04/29/2017 14:49:11 03/09/20 09 Dilation and Curettage completed Etelvina Obregon RN [facility] 08/31/2014 17:03:00 07/07/18 94 Appendectomy completed Etelvina Obregon RN [facility] 08/31/2014 17:03:00 Other completed Harika Still MA [facility] 06/20/2014 16:13:59 lumpectomy of right breast completed NICK Fernandez [facility] 05/26/2019 11:02:28 Laparoscopy completed Etelvina Obregon RN [facility] 08/31/2014 17:03:00 Imaging Results None recorded. Procedure Notes None recorded. Medical Equipment None Reported. Allergies Allergen ID Allergen Name Allergen Category Reaction Reaction Severity Criticality Documentation Date Start Date Code Code System Note Provider Name and Address Organization Details Recorded Time 30044 Ponstel medicatio n Not available Not available Not available 08/31/2014 4 RxNorm Not Available Not Available Not Available 4760 Product containin g penicilli n (product) medicatio n rash moderate Not available 06/20/2014 84713 8001 SNOMED Not Available Not Available Not Available 9056 Substance with sulfonami de structure and antibacte rial mechanism of action (substanc e) medicatio n rash moderate Not available 06/20/2014 93804 8003 SNOMED Not Available Not Available Not Available Medications Name Sig Start Date Stop Date Status Note LastModified by Organization Details LastModified Time celecoxib 200 mg capsule 07/31 completed not taking Not Available Not Available Not Available Santyl 250 unit/gram topical ointment APPLY small amount TO CLEANSED AFFECTED AREA of heels BY TOPICAL ROUTE ONCE DAILY for up to 2 weeks 08/26 completed Not Available Not Available Not Available cyclobenza jonah 10 mg tablet TAKE 1 TABLET BY MOUTH THREE TIMES DAILY NEEDED FOR MUSCLE SPASM 07/30 completed Not Available Not Available Not Available lamotrigin e 150 mg tablet Take 1 tablet twice a day by oral route for 30 days. 08/13 completed Not Available Not Available Not Available bupropion HCl SR 150 mg tablet,12 hr sustained- release TAKE 1 TABLET EVERY DAY BY ORAL ROUTE. active Not Available Not Available No t Available nystatin 100,000 unit/mL oral suspension 07/31 completed Not Available Not Available Not Available gabapentin 600 mg tablet 05/26 completed Not Available Not Available Not Available doxycyclin e hyclate 100 mg capsule TAKE ONE CAPSULE BY MOUTH TWO TIMES A DAY FOR 5 DAYS 06/13 completed Not Available Not Available Not Available lamotrigin e 200 mg tablet TAKE 1 TAB BY MOUTH 2 TIMES DAILY. active Not Available Not Available No t Available clindamyci n HCl 300 mg capsule Take 1 capsule 3 times a day by oral route for 5 days. 2024 active Not Available Not Available Not Avai lable diphenhydr amine 50 mg capsule Take 50 mg by oral route. 02/20 completed Not Available Not Available Not Available cetirizine 10 mg tablet TAKE 1 TABLET EVERY DAY BY ORAL ROUTE. 2024 active Not Available Not Available Not Avai lable Stool Softener 100 mg capsule 07/31 completed Not Available Not Available Not Available azithromyc in 250 mg tablet TAKE 2 TABLETS (500 MG) BY ORAL ROUTE ONCE DAILY FOR 1 DAY THEN 1 TABLET (250 MG) BY ORAL ROUTE ONCE DAILY FOR 4 DAYS 07/30 completed Not Available Not Available Not Available ibuprofen 800 mg tablet 08/13 completed Not Available Not Available Not Available Lidocaine Viscous 2 % mucosal solution 07/08 completed Not Available Not Available Not Available fluconazol e 150 mg tablet Take 1 tablet every day by oral route for 1 day. 08/26 completed Not Available Not Available Not Available hydrocodon e 5 mg-acetami nophen 325 mg tablet TAKE 1 TABLET BY MOUTH EVERY 6 HOURS NEEDED FOR PAIN 06/16 completed Not Available Not Available Not Available ondansetro n HCl 8 mg tablet 07/31 completed Not Available Not Available Not Available meloxicam 15 mg tablet 08/13 completed Not Available Not Available Not Available prednisone 20 mg tablet 06/13 completed Not Available Not Available Not Available clindamyci n HCl 150 mg capsule 06/25 completed Not Available Not Available Not Available diphenoxyl ate-atropi ne 2.5 mg-0.025 mg tablet 06/13 completed Not Available Not Available Not Available metronidaz ole 500 mg tablet Take 1 tablet twice a day by oral route for 7 days. 08/26 completed Not Available Not Available Not Available prochlorpe razine maleate 10 mg tablet 07/31 completed prn Not Available Not Available Not Available acyclovir 400 mg tablet TAKE 1 TABLET EVERY 8 HOURS BY ORAL ROUTE FOR 5 DAYS. 06/13 completed Not Available Not Available Not Available valacyclov ir 500 mg tablet TAKE 1 TABLET BY MOUTH TWICE DAILY FOR 7 DAYS active Not Available Not Available No t Available aspirin 81 mg tablet,del ayed release 07/31 completed not taking Not Available Not Available Not Available acetaminop hen 500 mg tablet 500 mg by oral route. 02/12 completed Not Available Not Available Not Available lidocaine- prilocaine 2.5 %-2.5 % topical cream 07/31 completed [...] completed Not Available Not Available Not Available diphenhydr amine 25 mg capsule TAKE ONE CAPSULE BY MOUTH THREE TIMES A DAY NEEDED FOR ALLERGIC REACTION 06/27 completed Not Available Not Available Not Available lidocaine 5 % topical patch 06/13 completed Not Available Not Available Not Available gabapentin 300 mg capsule TAKE ONE CAPSULE BY MOUTH THREE TIMES A DAY active Not Available Not Available No t Available omeprazole 20 mg capsule,de layed release TAKE 1 CAPSULE EVERY DAY BY [...] ONE (1) TABLET EVERY DAY BY MOUTH active Not Available Not Available No t Available methylpred nisolone 4 mg tablets in a dose pack TAKE TABLETS BY MOUTH BY DIRECTIO NS ON CARD IN BOX (TAKE WITH FOOD) 06/27 completed Not Available Not Available Not Available celecoxib 100 mg capsule 07/31 completed Not Available Not Available Not Available Kayexalate oral powder Take 15 grams po bid 06/25 completed Not Available Not Available Not Available ondansetro n 4 mg disintegra ting tablet 10/27 completed Not Available Not Available Not Available cefdinir 300 mg capsule Take 1 capsule every 12 hours by oral route for 7 days. 02/20 completed Not Available Not Available Not Available fluticason e propionate 50 mcg/actuat ion nasal spray,susp ension [place] 1 spray every day by intranas al route. active Not Available Not Available No t Available doxycyclin e hyclate 100 mg tablet Take 1 tablet twice a day by oral route for 14 days. 10/27 completed Not Available Not Available Not Available lamotrigin e 100 mg tablet Take 100 mg twice a day by oral route. 03/19 completed Not Available Not Available Not Available oxycodone 5 mg tablet TAKE ONE TABLET BY MOUTH EVERY 6 HOURS NEEDED FOR PAIN 06/13 completed Not Available Not Available Not Available escitalopr am 20 mg tablet TAKE ONE TABLET BY MOUTH EVERY DAY 2024 active Not Available Not Available Not Avai lable cyclobenza jonah 5 mg tablet 06/13 completed Not Available Not Available Not Available nitrofuran toin monohydrat e/macrocry stals 100 mg capsule Take 1 capsule every 12 hours by oral route for 7 days. 04/14 completed Not Available Not Available Not Available pregabalin 75 mg capsule 07/31 completed not taking Not Available Not Available Not Available Vivitrol 380 mg intramuscu lar suspension ,extended release as directed 08/13 completed Not Available Not Available Not Available Balziva (28) 0.4 mg-35 mcg tablet TAKE ONE TABLET BY MOUTH EVERY DAY 06/25 completed Not Available Not Available Not Available RhoGAM Ultra-Filt ered PLUS 1,500 unit (300 mcg) intramuscu lar syringe Inject 1 syringe by intramus cular route. 11/17 completed Not Available Not Available Not Available Kionex (with sorbitol) 15 gram-19.3 gram/60 mL oral suspension 08/13 completed Not Available Not Available Not Available Vimpat 200 mg tablet active Not Available Not Available No t Available lacosamide 100 mg tablet 100 mg twice a day by oral route. active Not Available Not Available No t Available Suboxone 8 mg-2 mg sublingual film 08/13 completed Not Available Not Available Not Available oxycodone 5 mg tablet,ora l ONLY (not feeding tubes) Take 5 mg [...] Last Updated DateTime 166.37 cm 26.9 kg/m2 99414.1 5 g 98 % 98 % 113 /min 16 /min 98.5 [degF] 122 mm[Hg] 92 mm[Hg] 126 mm[Hg] 88 mm[Hg] Kelly Mcneil [facility] 14:57:09 Date Recorded Heart rate Provider Name an d Address Organization Details Last Updated DateTime 10/28/2023 92 /min TRISTEN Benitez, CAROLINE Attn: [address] [place], [address], [facility] 10/28/2023 15:15:10 Date Recorded Body height Body mass index (BMI) Body weight Systolic blood pressure Diastolic blood pressure Provider Name and Address Organization Details Last Updated DateTime 12/09/2023 166.37 cm 26.6 kg/m2 07744.4 g 117 mm[Hg] 84 mm[Hg] Leslie Meyer [facility] 11:32:08 Date Recorded Body height Body mass index (BMI) Body weight Oxygen saturation Oxygen saturation in Arterial blood by Pulse oximetry Heart rate Respiratory rate Body temperature Systolic blood pressure Diastolic blood pressure Provider Name and Address Organization Details Last Updated DateTime 166.37 cm 27.9 kg/m2 65138.4 g 94 % 94 % 120 /min 16 /min 98.5 [degF] 130 mm[Hg] 82 mm[Hg] Sharifa Diaz MA [facility] 16:52:06 Date Recorded Oxygen saturation Oxygen saturation in Arterial blood by Pulse oximetry Heart rate Provider Name and Address Organization Details Last Updated DateTime 01/13/2024 97 % 97 % 96 /min Arianne River APN, CAROLINE Attn: Accounting, [address] [place], [address], [place] - [facility] 01/13/2024 17:05:03 Date Recorded Body height Body mass index (BMI) Body weight Oxygen saturation Oxygen saturation in Arterial blood by Pulse oximetry Body temperature Respiratory rate Heart rate Systolic blood pressure Diastolic blood pressure Provider Name and Address Organization Details Last Updated DateTime 4 166.37 cm 27.5 kg/m2 57134.5 2 g 95 % 95 % 97.5 [degF] 16 /min 96 /min 124 mm[Hg] 86 mm[Hg] Kelly Mcneil Michael [facility] 4 14:40:33 Date Recorded Body height Body mass index (BMI) Body weight Oxygen saturation Oxygen saturation in Arterial blood by Pulse oximetry Respiratory rate Body temperature Heart rate Systolic blood pressure Diastolic blood pressure Provider Name and Address Organization Details Last Updated DateTime 5 166.37 cm 27.5 kg/m2 24271.5 2 g 99 % 99 % 16 /min 98 [degF] 116 /min 94 mm[Hg] 65 mm[Hg] Kelly Mcneil Michael [facility] 5 08:54:34 Social History Question Answer Notes LastModified by Organizat ion Details LastModified Time Tobacco Smoking Status Never Smoker BE [place], [facility] 06/20/2014 16:16:27 Do You Have An Advance Directive? No Information not available 11/17/2018 What Is Your Level Of Alcohol Consumption? None Information not available 10/28/2023 Are You Blind Or Do You Have Difficulty Seeing? No Information not available 02/06/2021 What Is Your Level Of Caffeine Consumption? None [email or web address] Information not available 02/20/2023 How Much Tobacco [...] Date Of Your Most Recent Tobacco Screening? 08/26/2024 Information not available 08/26/2024 How Many Children Do You Have? 1 [...] Anxious, Or Unable To Sleep At Night)? [id number] Information not available 04/14/2024 Do You Use Any Illicit Or Recreational Drugs? No Hx Meth, Opiates [email or web address] Information not available 03/20/2022 Do You Use [...] Not available 01/2015 14:18:35 Sister Graves' disease [email or web address] Not available 11/14 12:34:59 Brother Alcohol abuse [email or web address] Not available 01/2015 14:18:35 Brother Crohn's disease [email or web address] Not available 11/14 12:34:39 Paternal Grandfather Malignant [...] virus, quadrivalent, preservative 9 completed Not Available [facility] 02/20/2023 11:32:39 Td (adult), 2 Lf tetanus toxoid, preservative free, adsorbed 1 completed Arianne River APN, [employer] Attn: Accounting[address] [place], [address], [place] [facility] 02/06/2021 11:10:09 Influenza, split virus, quadrivalent, PF 0 completed RA CondonA null, [place] [facility] 03/18/2022 15:51:26 Td (adult), 2 Lf tetanus toxoid, preservative free, adsorbed 9 completed Arianne River APN, [employer] Attn: Accounting[address] [place], [address], [place] [facility] 02/06/2021 11:10:09 Influenza, split virus, quadrivalent, PF 9 completed Leslie Meyer RMA [place], [place] [facility] 03/18/2022 15:51:26 Influenza, split virus, quadrivalent, PF 1 completed Leslie Meyer R[place] [facility] 03/18/2022 15:51:26 Tdap 2 completed Arianne River APN, [employer] Attn: Accounting[address] [place], [address], [place] [facility] 10/28/2023 14:51:56 Influenza, split virus, trivalent, preservative 4 completed NICK Condon, [place] - [facility] 03/18/2022 15:51:26 Influenza, split virus, trivalent, preservative 5 completed Arianne Rvier APN, [employer] Attn: Accounting[address] [facility], [place], [address], [facility] 09/03/2024 11:21:08 Past Encounters Encounter ID Performer Location Encounter Start Date Encounter Closed Date Diagnosis/Indication Diagnosis SNOMED-CT Code Diagnosis ICD10 Code Diagnosis Note [id number] [facility] (Adult Med) [address] [place] [address] 06/20/2014 14:54:46 06/20/2014 16:44:53 Swollen legs [id number] Mild edema present.no erythema,n o tenderness ,Ramiro's sign negative. Check labs cbc,cmp. Chronic depression 190974611 Stable on Lexapro. Check labs CBC,CMP,[place]. [id number] [facility] [address] [facility] [place] [address] 06/28/2014 14:45:40 06/28/2014 17:48:01 Acute sinusitis 37568350 Likely Viral. Afebrile.S aturating 98% on room air.Lungs clear.No exudates on the tonsils. Advise patient to use saline spray and steam inhalation . Continue otc Mucinex. Tessalon pearls 100 mg po tid. Call office if the symptoms not improving by next week. [id number] [facility] [address] [facility] [place] [address] 07/13/2014 14:02:08 07/13/2014 14:48:18 Acute bronchitis 16945781 Patient has cough for more than 2 weeks. Lungs clear and saturating 98% on room air. Z pack. Advised to take otc Mucinex. Follow up if no improvemen t of the cough. [id number] Carlton Nick (RICHARD 205) [address] [facility] [address] [place] [address] 09/02/2014 11:55:39 09/02/2014 13:30:02 Gynecologic examination 06483192 High risk sexual behavior 059430097 [id number] MD Carlton Contreras ([place] [address]) [address] [facility] [place] [address] 05/02/2016 16:13:51 05/03/2016 10:30:21 Amenorrhea 59965367 N91.2 [id number] Arianne River APN, [employer] [facility] (Adult Med) [address] [facility] [place] [address] 08/13/2016 09:54:12 08/13/2016 12:28:34 Epilepsy 48356641 G40.909 Risk of medication explained to pt, pt agrees to cont med. Will fill until she is seen by neuro Adult heal th examination 212283590 Z00.00 72947847 Z33.1 Cont to f/u OB Depressive disorder 3548 9007 F32.89 Cont to f/u with psychiatry . [id number] STEPHANIE MillerP- Carlton Nick ([place] [address]) [address] [facility] [place] [address] 08/13/2016 11:17:58 08/14/2016 10:13:35 test positive 150693235 Z32.01 Advanced m aternal age 588270455 O09.521 Epilepsy 28725374 G40.90 9 Urinary tr act infectious disease 30883795 N39.0 [id number] MD Carlton Contreras ([place] [address]) [address] [facility] [place] [address] 08/27/2016 13:49:06 08/28/2016 09:08:23 Normal 27307379 Z34.81 [id number] MD Carlton Contreras ([place] [address]) [address] [facility] [place] [address] 09/12/2016 15:41:24 09/13/2016 09:27:40 Normal [id number] Z34.81 [id number] MD Carlton Contreras ([place] [address]) [address] [facility] [place] [address] 10/10/2016 15:19:24 10/11/2016 09:15:06 Normal 64261225 Z34.81 [id number] MD Carltno Contreras ([place] [address]) [address] [facility] [place] [address] 11/07/2016 11:05:01 11/07/2016 13:54:57 Normal 57571994 Z34.81 [id number] MD Carlton Contreras ([place] [address]) [address] [facility] [place] [address] 12/05/2016 10:04:46 12/05/2016 11:39:56 RhD negative 098826300 Z01.83 Normal 4468271 2 Z34.81 Advanced m aternal age 501537774 O09.276 [id number] MD Carlton Contreras ([place] [address]) [address] [facility] [place] [address] 12/30/2016 13:55:41 12/30/2016 14:56:05 Normal [id number] Z34.81 [id number] MD Carlton Contreras ([place] [address]) [address] [facility] [place] [address] 01/30/2017 16:35:04 01/31/2017 12:28:06 Normal [id number] Z34.81 [id number] MD Carlton Contreras ([place] [address]) [address] [facility] [place] [address] 02/14/2017 11:00:34 02/14/2017 11:53:15 Normal 54990288 Z34.81 [id number] MD Carlton Contreras ([place] [address]) [address] [facility] [place] [address] 03/13/2017 14:26:10 03/13/2017 15:16:37 depression 92114674 O99.543 [id number] MD Carlton Contreras ([place] [address]) [address] [facility] [place] [address] 04/03/2017 16:46:15 04/04/2017 15:16:06 care 242730709 Z39.2 [id number] Arianne River APN, [employer] [facility] (Adult Med) [address] [place] [address] 11/17/2018 11:16:55 11/18/2018 10:29:54 Chronic depression 449828573 F34.1 resume medication s, f/u if not improving; Seizure 24849026 R56.9 Has talked to neuro office and meds are refilled. Has appt in December. Adult heal th examination 645555733 Z00.01 Encouraged routine [place], vision, dental exams, well balanced diet. Insomnia 879537572 G47.0 0 Has been on Ambien 5 mg for past 18 months; pt would like to cont.Rx pending UDS. Long-term drug therapy 801060013 Z79.899 dwp policy on controlled substances , signed new contract Hyperlipidemia 97837874 E78.2 check lab, was high at last check in senior living, [id number] Jraeth Townsend MD [place] [address] OB [address] [facility] [address] [place] [address] 01/11/2019 14:38:50 01/12/2019 10:01:50 Gynecologic examination 02495253 Z01.793 [id number] Arianne River APN, ARVIND-C [facility] (Adult Med) [address] [place] [address] 02/16/2019 11:03:14 02/17/2019 11:00:54 Chronic depression 689191783 F34.1 cont medication s: escitalopr am 20 mg qd Seizure 81758131 R56.9 Has talked to neuro office and meds are refilled. Had appt in December- Insomnia 265157846 G47.0 0 Has been on Ambien 5 mg for past 18 months; pt would like to cont.refil l of Rx pending UDS- increase zolpidem ER 6.25 pending drug screen Long-term drug therapy 794409157 Z79.899 dw policy on controlled substances , signed new contract Hyperlipidemia 12528755 E78.2 check lab, was high at last check in senior living, [id number] Arianne River APN, ARVIND-C [facility] (Adult Med) [address] [place] [address] 05/26/2019 10:50:55 05/28/2019 09:16:05 Chronic depression 476137983 F34.1 cont medication s: escitalopr am 20 mg qd Seizure 54288720 R56.9 Has talked to neuro office and meds are refilled. Had appt in December- Insomnia 903974322 G47.0 0 may cont on Ambien ER 6.25, refill when due Hyperlipidemia 27600336 E78.2 check lab, was high at last check in senior living, Malignant tumor of breast 730612400 C50.011 Seeing oncology, currently undergoing chemo [id number] Arianne River APN, [employer] [facility] (Adult Med) [address] [place] [address] 07/08/2019 12:15:36 07/09/2019 08:55:57 Acute bilateral otitis media 451350153 H66.93 bilateral TM's with erythema and purulent middle ear fluid, start cefdinir as she has allergy to pcn and bactrim [id number] Arianne River APN, ARVIND-[facility] (Adult Med) [address] [place] [address] 07/31/2020 08:42:28 08/01/2020 10:35:42 Chronic depression 622283275 F34.1 cont medication s: escitalopr am 20 mg qd Seizure 46639425 R56.9 Has talked to neuro office and meds are refilled. Jun 2020 via phone, no changes Insomnia G47.0 0 november cont on Ambien ER 6.25, refill when due Hyperlipidemia 27686411 E78.2 check lab, was high at last check in senior living, [id number] Arianne River APN, [employer] [facility] (Adult Med) [address] [place] [address] 02/06/2021 10:50:02 02/07/2021 07:41:50 Chronic depression 149851960 F34.1 cont medication s: escitalopr am 20 mg qd Insomnia 828459137 G47.0 0 may cont on Ambien prn, still not falling asleep well, will increase back up to 10 mg Seizure 49363188 R56.9 Has talked to neuro and meds are refilled. no changes [id number] MD Carlton Contreras 14 OB [address] [facility] [address] [place] [address] 02/12/2021 14:58:49 02/13/2021 08:38:24 Gynecologic examination 30823353 Z01.419 Personal h istory of primary malignant neoplasm of breast 189410322 Z85.3 [id number] Arianne River APN, [employer] [facility] (Adult Med) [address] [place], [place] [address] [address] 06/13/2021 11:25:04 06/14/2021 11:39:48 Chronic depression 357321151 F34.1 cont medication s: escitalopr am 20 mg qd Insomnia 205048861 G47.0 0 may cont on Ambien 10 mg Seizure 60601064 R56.9 no recent seizures, cont with neuro Idiopathic urticaria 422 56221 L50.1 cont steroids as rx'dmay benefit from allergy testing when no longer on antihistam ine/steroi ds [id number] Arianne River APN, [facility] [address] [place] [address] 06/27/2021 10:32:40 06/28/2021 08:20:32 Idiopathic urticaria 85763864 L50.1 cont steroids as rx'dmay benefit from allergy testing when no longer on antihistam ine/steroi ds Easy bruising 737051541 R58 dwp may be from steroid use, will still check labs Administra tion of influenza vaccine 96579379 Z23 Insomnia 698819916 G47.0 0 may cont on Ambien 10 mg [id number] Arianne River APN, ARVIND-C [facility] (Adult Med) [address] [place] [address] 11/14/2021 12:29:22 11/15/2021 09:56:18 Chronic depression 559699152 F34.1 cont medication s: escitalopr am 20 mg qd Insomnia 858876378 G47.0 0 may cont on Ambien 10 mg Seizure 73244625 R56.9 no recent seizures, cont with neuro Environmental allergy 42 7511869 T78.49XD reviewed allergy test with pt, will send rx for cetirizine 10 mg [id number] Arianne River APN, CAROLINE [facility] (Adult Med) [address] [place] [address] 02/20/2022 14:33:02 02/21/2022 10:22:02 Insomnia 396596758 G47.00 may cont on Ambien 10 mg Chronic depression 62909 0009 F34.1 cont medication s: escitalopr am 20 mg qd Seizure 25621846 R56.9 no recent seizures, cont with neuro Environmental allergy 42 1603333 T78.49XD reviewed allergy test with pt, will send rx for cetirizine 10 mg Overweight 517732003 E66 .3 advised low fat, low cholestero l diet, regular exercise and weight reduction. [id number] Jareth Townsend MD [place] 14 OB [address] [facility] [address] [place], [place] [address] [address] 03/19/2022 16:15:12 03/20/2022 09:14:00 Gynecologic examination 59398099 Z01.419 History of malignant neoplasm of breast 476414447 Z85.3 [id number] Arianne River APN, FNP-C [facility] (Adult Med) [address] [place] [address] 03/20/2022 14:40:48 03/21/2022 08:18:42 Pain of sternum 937232179 R07.2 ttp sternum to right anterior chest wall and along lateral to posterior ribs 3-5 bilaterall y, repeat chest xray Fracture of clavicle 581 16639 S42.002D cont with sling/immo bilizer as directed Fracture o f multiple ribs 5570111 S22.43XD ttp sternum to right anterior chest wall and along lateral to posterior ribs 3-5 bilaterall y, repeat chest xray Long-term current use of drug therapy 207189929 Z79.899 check drug screen prior to ambien dosing Overweight 183103628 E66 .3 advised low fat, low cholestero l diet, regular exercise and weight reduction. [id number] Arianne River APN, FNP-C [facility] (Adult Med) [address] [facility] [place] [address] 06/13/2022 11:01:37 06/14/2022 09:29:54 Insomnia 209927834 G47.00 may cont on Ambien 10 mg Chronic depression 65146 000 F34.1 cont medication s: escitalopr am 20 mg qd Seizure 09246499 R56.9 no recent seizures, cont with neuro Environmental allergy 42 7062472 T78.49XD reviewed allergy test with pt, will send rx for cetirizine 10 mg Overweight 848842570 E66 .3 advised low fat, low cholestero l diet, regular exercise and weight reduction. Exposure t o Streptococcus 237452489 Z20.818 son was positive, will treat Productive cough 4050794 5 R05.9 cont otc meds, [id number] Arianne River APN, ARVIND[facility] (Adult Med) [address] [place] [address] 10/29/2022 10:54:17 10/31/2022 09:37:39 Insomnia 937026843 G47.00 may cont on Ambien 10 mg Chronic depression 000 F34.1 cont medication s: escitalopr am 20 mg qd Seizure 47541986 R56.9 no recent seizures, cont with neuro Environmental allergy 42 3840668 T78.49XD reviewed allergy test with pt, will send rx for cetirizine 10 mg Overweight 647793439 E66 .3 advised low fat, low cholestero l diet, regular exercise and weight reduction. Screening for malignant neoplasm of colon 232077322 Z12.11 Menopausal flushing 1983 65931 N95.1 advised to talk to gyne, [id number] Arianne River APN, ARVIND-Denis [facility] (Adult Med) [address] [place] [address] 02/20/2023 11:31:45 02/25/2023 12:10:02 Insomnia 831263891 G47.00 may cont on Ambien 10 mg Chronic depression 000 F34.1 cont medication s: escitalopr am 20 mg qd Seizure 72473448 R56.9 no recent seizures, cont with neuro Environmental allergy 42 4781451 T78.49XD reviewed allergy test with pt, will send rx for cetirizine 10 mg Overweight 675222440 E66 .3 advised low fat, low cholestero l diet, regular exercise and weight reduction. Menopausal flushing 1983 14600 N95.1 advised to talk to gyne, [id number] Arianne River APN, CAROLINE [facility] (Adult Med) [address] [place] [address] 06/16/2023 09:25:59 06/17/2023 12:17:57 Exposure to streptococcal pharyngitis 0849880460 105 Z20.818 kids have strep,rapi d negative, will treat since she has 2 kids with it Overweight 747512864 E66 .3 advised low fat, low cholestero l diet, regular exercise and weight reduction. Pityriasis versicolor 56 779108 B36.0 hypopigmen geri rash to body, dwp selsun blue shampoo lather, will also start po fluconazol e Insomnia 810475712 G47.0 0 may cont on Ambien 10 mg Environmental allergy 42 [id number] T78.49XD reviewed allergy test with pt, will send rx for cetirizine 10 mg Chronic depression 54916 0009 F34.1 cont medication s: escitalopr am 20 mg qd Gastroesop hageal reflux disease without esophagitis 581958373 K21.9 has been taking otc ppi, will send rx [id number] Arianne River APN, CAROLINE Diggs (Adult Med) [address] [place] [address] 07/30/2023 17:13:03 07/31/2023 11:11:12 Pain in left foot [id number] 78688 M79.672 distal left foot, pain with weight bearingwil l get xray Edema of l ower extremity 890951240 R60.0 top of left foot, will rule out clot with dopplercon t compressio n sock, elevate Pityriasis versicolor 56 066019 B36.0 hypopigmen geri rash to body, dwp selsun blue shampoo lather, will also start po fluconazol edid not go away with above treatment, has still been using shampoo, will start abx,dwp chewing a clove bud qd Cellulitis of left foot [id number] 4108252 L03.116 dwp will treat with abx to cover for infection pending imaging Depressive disorder 3548 9007 F32.89 Cont to f/u with psychiatry . [id number] Arianne River APN, CAROLINE Diggs (Adult Med) [address] [place] [address] 10/28/2023 14:37:35 10/29/2023 19:42:22 Pain in left foot [id number] 59858 M79.672 prior distal left foot, pain with weight bearing, xray was normal but Ct showed fracture, pain improved now, FROM and WB, oncology ordered bone scan to check density given type of fracture but was wnl per pt Edema of l ower extremity 488304738 R60.0 cont compressio n sock, elevate if swelling returns Pityriasis versicolor 56 013849 B36.0 hypopigmen geri rash to body, dwp selsun blue shampoo lather, will also start po fluconazol edid not go away with above treatment, has still been using shampoo, will start abx,dwp chewing a clove bud qd Depressive disorder 3548 3411 F32.89 Cont to f/u with psychiatry . Gastroesop hageal reflux disease without esophagitis 109366005 K21.9 has been taking otc ppi, will send rx Overweight 167213366 E66 .3 advised low fat, low cholestero l diet, regular exercise and weight reduction. Insomnia 993663648 G47.0 0 november cont on Ambien 10 mg [id number] MD Carlton Contreras 14 OB [address] [facility] [address] [place] [address] 12/09/2023 11:09:29 12/13/2023 13:33:49 Overweight 230342728 E66.3 Positive s creening for depression on PHQ-9 (Patient Health Questionnaire 9) 4555598662 91760 Z13.31 Gynecologi c examination 33821796 Z01.419 History of malignant neoplasm of breast 343964949 Z85.3 Menopause present 507591 006 N95.1 [id number] Arianne River APN, CAROLINE Diggs (Adult Med) [address] [place] [address] 01/13/2024 16:46:12 01/14/2024 14:41:29 Depressive disorder 83625826 F32.89 Cont to f/u with psychiatry . Gastroesop hageal reflux disease without esophagitis 810504935 K21.9 has been taking otc ppi, will send rx Overweight 940635516 E66 .3 advised low fat, low cholestero l diet, regular exercise and weight reduction. Insomnia 288145501 G47.0 0 may cont on Ambien 10 mg [id number] Arianne River APN, CAROLINE Diggs (Adult Med) [address] [place] [address] 04/14/2024 14:31:57 04/16/2024 16:57:58 Scleral icterus 199957190 H15.89 slight yellowing to eyes, will get labs,last ast was slightly raised but normal bili; Overweight 299444406 E66 .3 advised low fat, low cholestero l diet, regular exercise and weight reduction. Visual disturbance 28163 001 H53.[address] [place] on 04/27/24wi ll be going to [facility] for check up Cholesterol screening 27 0254771 Z13.220 check lab [id number] Arianne River APN, CAROLINE Diggs (Adult Med) [address] [place] [address] 08/26/2024 08:45:45 09/06/2024 13:14:38 History of alcohol abuse 792186600 F10.10 dwp to cont with meetings and avoid alcohol.pt denies recent use, states she was not in ER for that, but for an ankle twist;advi sed pt drug screen required Hyperlipidemia 67236240 E78.2 check lab Gastroesop hageal reflux disease without esophagitis 412058605 K21.9 has been taking otc ppi, will send rx Depressive disorder 3548 9007 F32.89 Cont to f/u with psychiatry /rehabpt interested in Vraylarcon t medication s: escitalopr am 20 mg qd and wellbutrin Insomnia 414537684 G47.0 0 may cont on Ambien 10 mg pending clean drug screen Administra tion of influenza vaccine 34082604 Z23 Health Concerns Section Related Observation LastModified by Organization Detai ls LastModified Time None Recorded Concern Status LastModified by Organization Details LastModified Time None Recorded Advance Directives Directive N: Payers Encounter Date Sequence Insurance Name Policy Number Policy Mariano Covered Member ID Mariano Member ID Guarantor Name 10/28/2023 1 [facility] (MEDICAID HMO) [id number] Lu Morillo [id number] Lu Morillo 12/09/2023 1 [employer] (MEDICAID HMO) [id number] Lu Guerramerman [id number] Lu Guerramerman 01/13/2024 1 [employer] [facility] [place] ([place] H[place]) [id number] Lu K Morillo [id number] Lu Morillo 04/14/2024 1 [employer] [place] [id number] 0003 Lu Guerramerman [id number] Lu Morillo 08/26/2024 1 [facility] [id number] 0003 Lu Guerramerman [id number] Lu Schuler Morillo Notes Date Note Type Note Provider Name and Address Organization Details Recorded Time 10/28/2023 text/html skin on heidi legs still rash and itchy, has derm referral follow up compliance for CS. Arianne River APN, BARREL [employer]G REMOVER AND DUMPER-C Attn: [address] [place], [address], [facility] 10/28/2023 15:17:37 12/09/2023 text/html Annual GYNReport ed [...] notes) Jareth Townsend MD Attn: [address]ing[address] [place], [address], [facility] 12/09/2023 12:15:25 01/13/2024 text/html follow up compliance for CS- ambien for insomnia Arianne River APN, FNP-C Attn: [address]ing[address] , [place], [address], [facility] 01/13/2024 18:20:38 04/14/2024 text/html [...] Arianne River APN, FNP-C Attn: Accounting[address] , [place], [address], [facility] 04/14/2024 18:28:14 08/26/2024 text/html here for follow up, was in ER for recent alcohol use, but pt is denying it, states she was also on flagyl from ob; follow up compliance for CS- ambien for insomnia cough for 2 days. denies fever, headache or body aches. Arianne River APN, FNP-C Attn: Accounting[address] [facility], [place], [address], [facility] 09/03/2024 11:23:32 OBGyn Episode Ob Episode Information Episode Created Date Number of Fetuses Patient Bloodtype Patient rh Status Prepregnancy Weight lbs Domestic Partner Domestic Partner Phone Father Name Precision Instrument Maker Status 08/31/19 15 1 CLOSED Fetus Data First Name Last Name Admitted to NICU Weight (g) Sex Living Outcome Pediatric Complications Fetus ID Race Codes Race Delivery Type 3175.14 4 M [id number] Vaginal Randolph Calculation Initial Randolph Date Initial [...] Domestic Partner Domestic Partner Phone Father Name Precision Instrument Maker Status 08/16/19 17 1 B Negative Del. @ [facility] ED Fetus Data First Name Last Name Admitted to NICU Weight (g) Sex Living Outcome Pediatric Complications Fetus ID Race Codes Race Delivery Type soledad anaya true 3203.49 35 F true Full Term 72338 2106-3 White Vaginal Randolph Calculation Initial Randolph [...] Days Gestation 0 cisringhausen 02/21/2017 017 0 Pre- Flowsheet Flowsheet Date 08/27/2016 Donovan Score Blood Edema Fundus Height Fundus Units Glucose Ketones Leukocytes Nitrite Labor Signs Protein Cervic Dilation Cervic Effacement Cervic Station Type Weight in lbs Pre/Post Dialysis Refused 154.883325875172 BP Diastolic BP Location Tested BP Systolic [...] Type Weight in lbs Pre/Post Dialysis Refused 155.30712505764 BP Diastolic BP Location Tested BP Systolic BP Type 72 96 sitting Fetus Heart Rate Present A 144 Present Fetus Movement Comments US confirmed due date, anato my US in 3 weeks Flowsheet Date 10/10/2016 Donovan Score Blood Edema Fundus Height Fundus Units Glucose Ketones Leukocytes Nitrite Labor Signs Protein Cervic Dilation Cervic Effacement Cervic Station Type Weight in lbs Pre/Post Dialysis Refused 154.365691034217 BP Diastolic BP Location Tested BP Systolic BP Type 56 102 sitting Fetus Heart Rate Present A 146 Present Fetus Movement A Yes Comments US zone says girl. Bad exper ience at [facility] with US tech MonicaMSAFP discussed. Risks of Lexapro and Trazadone discussed Flowsheet Date 11/07/2016 Donovan Score Blood Edema Fundus Height Fundus Units Glucose Ketones Leukocytes Nitrite Labor Signs Protein Cervic Dilation Cervic Effacement Cervic Station 23 cm Type Weight in lbs Pre/Post Dialysis Refused 159.491297807659 BP Diastolic BP Location Tested BP Systolic [...] Type Weight in lbs Pre/Post Dialysis Refused 164.91719922845 BP Diastolic BP Location Tested BP Systolic [...] Type Weight in lbs Pre/Post Dialysis Refused 160.437759114776 BP Diastolic BP Location Tested BP Systolic [...] Type Weight in lbs Pre/Post Dialysis Refused 155.75842073871 BP Diastolic BP Location Tested BP Systolic [...] Type Weight in lbs Pre/Post Dialysis Refused 163.058743400575 BP Diastolic BP Location Tested BP Systolic [...] Post Complications Tubal Sterilization Discharge Date Comments [facility] idural [address] Townsend 02/21/2017 Discharge Information Feeding Method Contraceptive Method Maternal HG B and HCT Levels
--- OUTSIDE RECORDS SUMMARY | 2024-10-11 18:02 | XMS_ITS | Encounter Summary ---
Author Organization [facility] Address [address] [place] [address] Phone Care Team Providers Care Shift Leader Name Role Phone Jack Dukes MD Unavailable [phone] Arianne Alarcon APRN, INDUSTRIAL GAS SERVICE HELPER Primary Care Provider [phone] Lito Chatterjee MD Unavailable [phone] Gustabo Falk MD Unavailable [phone] Amrit Goddard MD Unavailable Phan Grant MD Unavailable [phone] Reason for Visit * Reason Comments Medication Refill Encounter Details Date Type Department Care Team (Late st Contact Info) Description 09/10/2023 Refill [facility] - Neurology 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 Not on file [...] 90 days and meeting all other requirements E ASSEMBLER documented in this encounter Plan of Treatment Upcoming Encounters Date Type Department Care Team (Late st Contact Info) Description 08/25/2025 2:00 PM CABLE ASSEMBLER Office Visit [facility] Oncology Services [address] [place] [address] Phan Grant MD [address] [place] [address] Discharge Disposition: Discharged to home or Selfcare documented as of this encounter Visit Diagnoses Diagnosis Seizures (HCC) Other convulsions documented in this encounter Care Teams Shift Leader Relationship Specialty Start Date End Date Arianne Alarcon APRN, CNP [address] [place] [address] PCP - General Family Medicine 08/29/16 Jack Dukes MD [address] [place] [address] Consulting Physician Neurology 08/21/16 Lito Chatterjee MD [address] [place] [address] Consulting Physician General Surgery 04/27/19 Gustabo Falk MD [address] [place] [address] Consulting Physician Radiation Oncology 04/27/19 Amrit Goddard MD [address] [address] Consulting Physician General Surgery 06/08/19 Phan Grant MD [address] [place] [address] Consulting Physician Medical Oncology 02/16/20 documented as of this encounter
--- OUTSIDE RECORDS SUMMARY | 2024-10-11 18:02 | XMS_ITS ---
Author Organization [facility] Address [address] [place] [address] Phone Care Team Providers Care Computer Systems Support Specialist Name Role Phone Jack Dukes MD Unavailable [phone] Arianne Alarcon APRN, EDUCATION LIAISON Primary Care Provider [phone] Lito Chatterjee MD Unavailable Gustabo Falk MD Unavailable [phone] Amrit Goddard MD Unavailable Phan Grant MD Unavailable [phone] Active Problems Problem Noted Date Diagnosed Date [...] from 04/27/2019:Stage IIB(cT2, cN0, cM0, G3, ER+, [place]-, HER2-) - Signed by Gustabo Falk MD on 04/28/2019 Pathologic stage from 04/27/2019:Stage IIB(pT2, pN1mi(sn), cM0, G3, ER+, IL-, HER2-) - Unsigned Premenopausal patient 04/22/2019 Seizures [...]
--- OUTSIDE RECORDS SUMMARY | 2024-10-11 18:02 | XMS_ITS | Encounter Summary ---
Author Organization [facility] Address [address] [place] [address] Phone Care Team Providers Care Casting Supervisor Name Role Phone Jack Dukes MD Unavailable [phone] Arianne Alarcon APRN, CLIENT SUPPORT ADMINISTRATOR Primary Care Provider [phone] Lito Chatterjee MD Unavailable [phone] Gustabo Falk MD Unavailable [phone] Amrit Goddard MD Unavailable Phna Grant MD Unavailable [phone] Reason for Visit * Reason Comments Medication Refill Encounter Details Date Type Department Care Team (Late st Contact Info) Description 02/17/2023 Refill [facility] - Neurology [facility] [address] [place] [address] Jack Dukes MD [address] [place] [address] Medication Refill Social History Tobacco Use Types Packs/Day Years Used Date Smoking Tobacco: Never Smokeless Tobacco: Never Alcohol Use Standard Drinks/Week Comments No 0 (1 standard drink = 0.6 oz pur e alcohol) Comments No Sex and Gender Information Value Date Recorded Sex Assigned at Not on file Legal Sex Female 2:52 AM REVIEW CONSULTANT Gender Identity Not on file Sexual Orientation Not on file 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) documented in this encounter Care Teams Casting Supervisor Relationship Specialty Start Date End Date Arianne Alarcon APRN, ROMEL [address] [place] [address] PCP - General Family Medicine 08/29/16 Jack Dukes MD [address] [place] [address] Consulting Physician Neurology 08/21/16 Lito Chatterjee MD [address] [place] [address] Consulting Physician General Surgery 04/27/19 Gustabo Falk MD [address] [place] [address] Consulting Physician Radiation Oncology 04/27/19 Amrit Goddard MD [address] [address] Consulting Physician General Surgery 06/08/19 Phan Grant MD [address] [place] [address] Consulting Physician Medical Oncology 02/16/20 documented as of this encounter
--- OUTSIDE RECORDS SUMMARY | 2024-10-11 18:02 | XMS_ITS | Encounter Summary ---
Author Organization [facility] Address [address] [place] [address] Phone Care Team Providers Care Papier Mache' Molder Name Role Phone Jack Dukes MD Unavailable Arianne Alarcon APRN, EVENT MGR Primary Care Provider [phone] Lito Chatterjee MD Unavailable Gustabo Falk MD Unavailable Amrit Goddard MD Unavailable Phan Grant MD Unavailable [phone] Encounter Details Date Type Department Care Team (Latest Contact Info) Description 08/26/2024 Transcribe Orders [facility] Laboratory Services [address] [place] [address] Arianne Alarcon APRN, EVENT MGR [address] [place] [address] Mixed hyperlipidemia (Primary Dx); Alcohol abuse, uncomplicated; Gastroesophageal reflux disease without esophagitis Social History Tobacco Use Types Packs/Day Years Used Date Smoking Tobacco: Never Smokeless Tobacco: Never Alcohol Use Standard Drinks/Week Comments No 0 (1 standard drink = 0.6 oz pur e alcohol) Comments No Sex and Gender Information Value Date Recorded Sex Assigned at Not on file Legal Sex Female 2:52 AM INVESTMENT ACCOUNTING CLERK Gender Identity Not on file Sexual Orientation Not on file 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 Not on file Not on file Not on file documented as of this encounter Plan of Treatment Upcoming Encounters Date Type Department Care Team (Late st Contact Info) Description 08/25/2025 2:00 PM INVESTMENT ACCOUNTING CLERK [facility] [address] [place] [address] Phan Grant MD [address] [place] [address] Discharge Disposition: Discharged to home or Selfcare Scheduled Orders Name Type Priority Associated Diagnoses Orde r Schedule LIPID PANEL Lab Routine Mixed hyperlipidemia Alcohol abuse, uncomplicated Gastroesophageal reflux disease without esophagitis Expected: 08/26/2024 (Approximate), Expires: 08/26/2025 URINE DRUG SCREEN Lab Routine Mixed hyperlipidemia Alcohol abuse, uncomplicated Gastroesophageal reflux disease without esophagitis Expected: 08/26/2024 (Approximate), Expires: 08/26/2025 COMPLETE BLOOD COUNT (CBC) WITH DIFF Lab Routine Mixed hyperlipidemia Alcohol abuse, uncomplicated Gastroesophageal reflux disease without esophagitis Expected: 08/26/2024 (Approximate), Expires: 08/26/2025 CMP (COMPREHENSIVE METABOLIC PANEL) Lab Routine Mixed hyperlipidemia Alcohol abuse, uncomplicated Gastroesophageal reflux disease without esophagitis Expected: 08/26/2024 (Approximate), Expires: 08/26/2025 documented as of this encounter Visit Diagnoses Diagnosis Mixed hyperlipidemia- Primary Alcohol abuse, uncomplicated Gastroesophageal reflux disease without esophagitis Esophageal reflux documented in this encounter Care Teams Papier Mache' Molder Relationship Specialty Start Date End Date Arianne Alarcon APRN, EVENT MGR [address] [place] [address] PCP - General Family Medicine 08/29/16 Jack Dukes MD [address] [place] [address] Consulting Physician Neurology 08/21/16 Lito Chatterjee MD [address] [place] [address] Consulting Physician General Surgery 04/27/19 Gustabo Falk MD [address] [place] [address] Consulting Physician Radiation Oncology 04/27/19 Amrit Goddard MD [address] [address] Consulting Physician General Surgery 06/08/19 Phan Grant MD [address] [place] [address] Consulting Physician Medical Oncology 02/16/20 documented as of this encounter
--- OUTSIDE RECORDS SUMMARY | 2024-10-11 18:03 | XMS_ITS | Continuity of Care Document ---
Author Organization [facility] Address [address] [place] [address] [place] [address] Phone Care Team Providers Care Consumer Recruiter Name Role Phone Massimo Herring MD Unavailable [...] Diagnoses Date Provider Providers Copied on Encounter [facility], [address] [facility] [place], [place], [id number], tel:[phone] [facility] Medicine No Information [address] [facility] [place], [id number] , [place]. tel:[phone] Referring Provider: Massimo Herring, [address] [place], [place], [id number]. tel:[phone] OFFICE/OUTPAT IENT VISIT, [facility] [place], [address] [place], [place], [address], tel:[phone] [facility] Seizure (chief complaint) depression (chief complaint) ADD (chief complaint) back pain (chief complaint) Epilepsy, unspecified, without mention of intractable epilepsyLumbago [address] [place], [place], [id number] , . tel:[phone] Referring Provider: Massimo Herring, [address] [place], [place], [id number]. tel:[phone] Family History Family Member Type Diagnosis Age At Onset No Information Payers Payer name Insurance type Covered libertarian ID Authoriza tion(s) No Information Social History [...]
--- OUTSIDE RECORDS SUMMARY | 2024-10-11 18:03 | XMS_ITS ---
Author Organization [facility] Address [address] [place] [address] Care Team Providers Care Military Communications Specialist Name Role Phone Maximiliano Grady Primary Care Provider [phone] [facility], [place] Adult ROLLY Unavailabl e [phone] Edinson Miller Unavailable [phone] REASON FOR VISIT 2 week F/U-Vivitrol Social History Sex Assigned At : Social History Observation Description Sex Assigned At Female Encounters Encounter Location Date Provider Diagnosis [address] [address] 10/30/2023 Edinson Miller Plan Of Treatment No Information Progress Notes * Lu NGUYỄNDOB: [birth year] (49 yo F)Acc No.[id number]:10/30/2023 UNLOCKED PROGRESS NOTE Patient: Ashley WALKERdi Provider: Sole Miller, MSN, AGPCNP-BC :1975 A ge:48 Y S ex:Female Date:10/30/2023 Address:[address] [facility] Pcp:Maximiliano Grady Subjective: * Chief Complaints: * 1 . 2 week F/U-Vivitrol. * Medical History: Objective: * Vitals: Assessment: Plan: * Treatment: * Care Plan Details* * Electronic signature of Maxime Miller , WATCHMAKING TEACHER, [phone] on 10/11/2024 at 06:02 PM CDT Sign off status: Pending * Provider: Sole Miller, CHARLETTE, AGPCNP-BC Date: 0 10/30/2023 Generated for Printing/Faxing/eTransmitting on: 0 10/11/2024 06:02 PM CDT
--- OUTSIDE RECORDS SUMMARY | 2024-10-11 18:03 | XMS_ITS | Patient Health Record ---
Author Organization [facility] Address [address] [place] [address] Care Team Providers Care Newspaper Reporter Name Role Phone Maximiliano Grady Primary Care Provider 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 Stress is when someone feels tense, nervous, anxious, or can\t sleep at night because their mind is troubled Somewhat In the past year have you sp ent more than 2 nights in a row in a mcfp, alf, chcf center, or juvenile correctional facility? No Are [...] Status Risk Notes Problem Major depressive disorder (010836244) Major depressive disorder (F32.9) Active confirmed Problem Psychoactive substance dependence (8193492) Chemical dependency (F19.20) Active confirmed Problem Opioid dependence (06083997) Opiate dependence (F11.20) Active confirmed Problem Alcohol use disorder (3937419830) Alcohol use disorder (F10.99) Active confirmed Problem Substance dependence (0140423075) Substance dependence (F19.20) Active confirmed Problem 02823425 Chemical abuse (F19.10) Active confirmed Vital Signs Heart Rate 117 /min 10/16/2023 Respiratory Rate 16 /min 10/16/2023 Blood pressure diastolic 90 mm Hg 10/16/2023 Oximetry 97 % 10/16/2023 Height 65 in 10/16/2023 Blood pressure systolic 128 mm Hg 10/16/2023 Weight 163.8 lbs 10/16/2023 BMI 27.25 kg/m2 10/16/2023 Encounters Encounter Location Date Provider Diagnosis [address] [address] 10/15/2023 Maximiliano Grady [address] [address] 03/03/2024 Edinson Miller [address] [address] 10/16/2023 Ro Vicente [address] [address] 10/16/2023 Edinson Miller Alcohol use disorder F10.99 [...] Insured Coverage Start Date Coverage End Date [facility] [address] [place] [address] [id number] Blessingtam murtaza Lu Self - patient is the insured 5 Medications Administered Medication Instructions Date of Administration Dosage Notes Vivitrol 02/21/2016 380 mg exp December 2017 Manufact by [employer] theresa well. Sample used Vivitrol 03/20/2016 380 mg Exp-01/03/2018 Community Liaison Officer-[employer] Client tolerated injection well. Vivitrol 04/17/2016 380 mg Exp December 2017 Manufact by [employer] Pt theresa well. Vivitrol 05/29/2016 380 mg Exp 10/2018 Man ufact by [employer] Pt theresa well. Medical (General) History Medical History History ICD Code seizures from head trauma 2007 gastric ulcer kidney stones 2005 UTI depression alcohol use disorder Surgical History Surgery Date(Month/Year) appendectomy 1994 cystectomy 2001 & 2002 kidney stents 2005 Double mastectomy 2021 Hospitalization History Reason Date(Month/Year) seizure 2014 kidney stent placement 2005 childbirth Feb 2017
== END 2024-10-11 17:26 | disposition home or self-care (01) ==
PROVIDERS: PCP Nurse Practitioner Family
DX: J02.0 Streptococcal pharyngitis (principal); Z20.822 Contact with and (suspected) exposure to COVID-19; G40.909 Epilepsy, unspecified, not intractable, without status epilepticus; F32.A Depression, unspecified; Z85.3 Personal history of malignant neoplasm of breast; Z90.11 Acquired absence of right breast and nipple; Z92.21 Personal history of antineoplastic chemotherapy
CPT/HCPCS: 87426; 87804; 87880; 99213; G0463

== ENCOUNTER 2025-02-10 10:00 | Emergency (ER) | payer OTHER, SELFPAY ==
--- NOTE | ~2025-02-10 | XR_ITS ---
EXAMINATION: XR chest 2V 02/10/2025 11:47 INDICATION: Syncope PROCEDURE: 2 view chest COMPARISON: 06/01/2023 FINDINGS: The lungs are clear. The cardiomediastinal silhouette is within normal limits. There are no pleural effusions. There is no pneumothorax suspected. IMPRESSION: 1: NO ACUTE CARDIOPULMONARY DISEASE. Reviewed, dictated and finalized at location A.
[2025-02-10 10:30] VITALS: BP 108/77; PULSE 84; RESP 16; TEMP 36.6; O2SAT 98
--- OUTSIDE RECORDS SUMMARY | 2025-02-10 10:41 | XMS_ITS | Encounter Summary ---
Author Organization [facility] Address [address] [place] [address] Phone Care Team Providers Care Rug Layer Name Role Phone Jack Dukes MD Unavailable [phone] Arianne Alarcon APRN, PATCH WORKER Primary Care Provider [phone] Lito Chatterjee MD Unavailable [phone] Gustabo Falk MD Unavailable [phone] Amrit Goddard MD Unavailable Phan Grant MD Unavailable [phone] Reason for Visit * Reason Comments Medication Refill Encounter Details Date Type Department Care Team (Late st Contact Info) Description 05/29/2020 Refill [facility] - Neurology - [place] [address] [place] [address] Jack Dukes MD [address] [place] [address] Medication Refill Social History Tobacco Use Types Packs/Day Years Used Date Smoking Tobacco: Never Smokeless Tobacco: Never Alcohol Use Standard Drinks/Week Comments No 0 (1 standard drink = 0.6 oz pur e alcohol) Comments No Sex and Gender Information Value Date Recorded Sex Assigned at Not on file Legal Sex Female 2:52 AM MACHINE FINISHER Gender Identity Not on file Sexual Orientation Not on file 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 No / Unsure 05/22/2020 3:41 PM MACHINE FINISHER documented as of this encounter Plan of Treatment Upcoming Encounters Date Type Department Care Team (Late st Contact Info) Description 02/17/2025 10:15 AM CDT Telemedicine [facility] Neurology [facility] [address] [place] [address] Jack Dukes MD [address] [place] [address] 08/25/2025 2:00 PM MACHINE FINISHER Office Visit 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) documented in this encounter Care Teams Rug Layer Relationship Specialty Start Date End Date Arianne Alarcon APRN, CNP [address] [place], [place] [id number] PCP - General Family Medicine 08/29/16 Jack Dukes MD [address] [place] [address] Consulting Physician Neurology 08/21/16 Lito Chatterjee MD [address] [place] [address] Consulting Physician General Surgery 04/27/19 Gustabo Falk MD [address] [address] Consulting Physician Radiation Oncology 04/27/19 Armit Goddard MD [address] [address] Consulting Physician General Surgery 06/08/19 Phan Grant MD [address] [place] [address] Consulting Physician Medical Oncology 02/16/20 documented as of this encounter
--- OUTSIDE RECORDS SUMMARY | 2025-02-10 10:41 | XMS_ITS | Encounter Summary ---
Author Organization [facility] Address [address] [facility] [place] [address] Phone Care Team Providers Care Tinter Photograph Name Role Phone Jack Dukes MD Unavailable [phone] Arianne Alarcon APRN, CNP Primary Care Provider [phone] Lito Chatterjee MD Unavailable Gustabo Falk MD Unavailable [phone] Amrit Goddard MD Unavailable Phan Grant MD Unavailable [phone] Reason for Visit * Reason Comments Medication Refill Encounter Details Date Type Department Care Team (Late st Contact Info) Description 06/09/[facility] [address] [place] [address] Phan Grant MD [address] [place] [address] Medication Refill Social History Tobacco Use Types Packs/Day Years Used Date Smoking Tobacco: Never Smokeless Tobacco: Never Alcohol Use Standard Drinks/Week Comments No 0 (1 standard drink = 0.6 oz pur e alcohol) Comments No Sex and Gender Information Value Date Recorded Sex Assigned at Not on file Legal Sex Female 2:52 AM SECOND HAND PAPER MACHINE Gender Identity Not on file Sexual Orientation Not on file 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 No / Unsure 06/08/2020 9:05 AM SECOND HAND PAPER MACHINE documented as of this encounter Miscellaneous Notes * Telephone Encounter - Tanya Hylton APN, CNP - 06/12/2020 1:04 PM SECOND HAND PAPER MACHINE Filled 2 weeks ago. [place] HAND PAPER MACHINE * Telephone Encounter - Maria Del Carmen Brasher RN - 06/12/2020 1:03 PM CST Request denied; last filled 05/22/20 with 3 refills. ND HAND PAPER MACHINE * Telephone Encounter - Maria Del Carmen Brasher RN - 06/12/2020 11:44 AM CST Okay to refill Lorazepam for Lu? Last fill 2 weeks ago. ND HAND PAPER MACHINE documented in this encounter Plan of Treatment Upcoming Encounters Date Type Department Care Team (Late st Contact Info) Description 02/17/2025 10:15 AM CDT Telemedicine [facility] Neurology [facility] [address] [place] [address] Jack Dukes MD [address] [place] [address] 08/25/2025 2:00 PM SECOND HAND PAPER MACHINE Office Visit [facility] Oncology Services [address] [place] [address] Phan Grant MD [address] [place] [address] Discharge Disposition: Discharged to home or Selfcare documented as of this encounter Visit Diagnoses Not on filedocumented in this encounter Care Teams Tinter Photograph Relationship Specialty Start Date End Date Arianne Alarcon APRNROMEL [address] [place] [address] PCP - General Family Medicine 08/29/16 Jack Dukes MD [address] [place] [address] Consulting Physician Neurology 08/21/16 Lito Chatterjee MD [address] [place] [address] Consulting Physician General Surgery 04/27/19 Gustabo Falk MD [address] [place] [address] Consulting Physician Radiation Oncology 04/27/19 Amrit Goddard MD [address] [address] Consulting Physician General Surgery 06/08/19 Phan Grant MD [address] [place] [address] Consulting Physician Medical Oncology 02/16/20 documented as of this encounter
--- OUTSIDE RECORDS SUMMARY | 2025-02-10 10:41 | XMS_ITS | Encounter Summary ---
Author Organization [facility] Address [address] [place] [address] Phone Care Team Providers Care Helicopter Utility Aircrewman Name Role Phone Jack Dukes MD Unavailable [phone] Arianne Alarcon APRN, TRUCK MECHANIC APPRENTICE Primary Care Provider [phone] Lito Chatterjee MD Unavailable [phone] Gustabo Falk MD Unavailable [phone] Amrit Goddard MD Unavailable Phan Grant MD Unavailable [phone] Reason for Visit * Reason Comments Medication Refill Encounter Details Date Type Department Care Team (Late st Contact Info) Description 05/30/2021 Refill [facility] - Neurology [facility] [address] [place] [address] Jack Dukes MD [address] [place] [address] Medication Refill Social History Tobacco Use Types Packs/Day Years Used Date Smoking Tobacco: Never Smokeless Tobacco: Never Alcohol Use Standard Drinks/Week Comments No 0 (1 standard drink = 0.6 oz pur e alcohol) Comments No Sex and Gender Information Value Date Recorded Sex Assigned at Not on file Legal Sex Female 2:52 AM MUTUEL DEPARTMENT MANAGER Gender Identity Not on file Sexual Orientation Not on file 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 No / Unsure 05/22/2021 11:16 PM MUTUEL DEPARTMENT MANAGER documented as of this encounter Plan of Treatment Upcoming Encounters Date Type Department Care Team (Late st Contact Info) Description 02/17/2025 10:15 AM CDT Telemedicine [facility] Neurology [facility] [address] [place] [address] Jack Dukes MD [address] [place] [address] 08/25/2025 2:00 PM MUTUEL DEPARTMENT MANAGER Office Visit [facility] Oncology Services [address] [place] [address] Phan Garnt MD [address] [place] [address] Discharge Disposition: Discharged to home or Selfcare documented as of this encounter Visit Diagnoses Diagnosis 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) documented in this encounter Care Teams Helicopter Utility Aircrewman Relationship Specialty Start Date End Date Arianne Alarcon APRN, ROMEL [address] [place], [place] [id number] PCP - General Family Medicine 08/29/16 Jack Dukes MD [address] [place] [address] Consulting Physician Neurology 08/21/16 Lito Chatterjee MD [address] [place] [address] Consulting Physician General Surgery 04/27/19 Gustabo Falk MD [address] [address] Consulting Physician Radiation Oncology 04/27/19 Amrit Goddard MD #[address] [address] Consulting Physician General Surgery 06/08/19 Phan Grant MD [address] [place] [address] Consulting Physician Medical Oncology 02/16/20 documented as of this encounter
--- OUTSIDE RECORDS SUMMARY | 2025-02-10 10:41 | XMS_ITS | Encounter Summary ---
Author Organization [facility] Address [address] [place] [address] Phone Care Team Providers Care Senior Research Associate Name Role Phone Jack Dukes MD Unavailable [phone] Arianne Alarcon APRN, TURNING AND BEADING MACHINE OPERATOR Primary Care Provider [phone] Lito Chatterjee MD Unavailable [phone] Gustabo Falk MD Unavailable [phone] Amrit Goddard MD Unavailable Phan Grant MD Unavailable [phone] Reason for Visit * Reason Comments Medication Refill Encounter Details Date Type Department Care Team (Late st Contact Info) Description 11/17/2020 Refill [facility] Medical [facility] - Neurology - [place] [address] [place] [address] Jack Dukes MD [address] [place] [address] Medication Refill Social History Tobacco Use Types Packs/Day Years Used Date Smoking Tobacco: Never Smokeless Tobacco: Never Alcohol Use Standard Drinks/Week Comments No 0 (1 standard drink = 0.6 oz pur e alcohol) Comments No Sex and Gender Information Value Date Recorded Sex Assigned at Not on file Legal Sex Female 2:52 AM CHIEF OF ANESTHESIOLOGY Gender Identity Not on file Sexual Orientation Not on file 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 Not on file [...] Info) Description 02/17/2025 10:15 AM CDT Telemedicine [facility] Medical [facility] - Neurology [facility] [address] [place] [address] Jack Dukes MD [address] [place] [address] 08/25/2025 2:00 PM CHIEF OF ANESTHESIOLOGY Office Visit [facility] Oncology Services [address] [place] [address] Phan Grant MD [address] [place] [address] Discharge Disposition: Discharged to home or Selfcare documented as of this encounter Visit Diagnoses Diagnosis Seizures (HCC) Other convulsions documented in this encounter Care Teams Senior Research Associate Relationship Specialty Start Date End Date Arianne Alarcon APRN, ROMEL [address] [place] [address] PCP - General Family Medicine 08/29/16 Jack Dukes MD [address] [place] [address] Consulting Physician Neurology 08/21/16 Lito Chatterjee MD [address] [place] [address] Consulting Physician General Surgery 04/27/19 Gustabo Falk MD [address] [address] Consulting Physician Radiation Oncology 04/27/19 Amrit Goddard MD #[address] [address] Consulting Physician General Surgery 06/08/19 Phan Grant MD [address] [place] [address] Consulting Physician Medical Oncology 02/16/20 documented as of this encounter
--- OUTSIDE RECORDS SUMMARY | 2025-02-10 10:41 | XMS_ITS | Encounter Summary ---
Author Organization [facility] Address [address] [facility] [place] [address] Phone Care Team Providers Care Sectionizer Name Role Phone Jack Dukes MD Unavailable [phone] Arianne Alarcon APRN, CNP Primary Care Provider [phone] Lito Chatterjee MD Unavailable Gustabo Falk MD Unavailable [phone] Amrit Goddard MD Unavailable Phan Grant MD Unavailable [phone] Reason for Visit * Reason Comments Medication Refill Encounter Details Date Type Department Care Team (Late st Contact Info) Description 06/20/[facility] [address] [place] [address] Phan Grant MD [address] [place] [address] Medication Refill Social History Tobacco Use Types Packs/Day Years Used Date Smoking Tobacco: Never Smokeless Tobacco: Never Alcohol Use Standard Drinks/Week Comments No 0 (1 standard drink = 0.6 oz pur e alcohol) Comments No Sex and Gender Information Value Date Recorded Sex Assigned at Not on file Legal Sex Female 2:52 AM QUILT SEWER Gender Identity Not on file Sexual Orientation Not on file 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 No / Unsure 06/08/2020 9:05 AM QUILT SEWER documented as of this encounter Miscellaneous Notes * Telephone Encounter - Nikki Martin RN - 06/21/2020 2:16 PM QUILT SEWER Lorazepam called into pharmacy previous refill not received by pharmacy T SEWER documented in this encounter Plan of Treatment Upcoming Encounters Date Type Department Care Team (Late st Contact Info) Description 02/17/2025 10:15 AM CDT Telemedicine [facility] Neurology [facility] #[address] [place] [address] Jack Dukes MD [address] [place] [address] 08/25/2025 2:00 PM QUILT SEWER Office Visit [facility] Oncology Services [address] [place] [address] Phan Grant MD [address] [place] [address] Discharge Disposition: Discharged to home or Selfcare documented as of this encounter Visit Diagnoses Not on filedocumented in this encounter Care Teams Sectionizer Relationship Specialty Start Date End Date Arianne Alarcon APRN, CLAIMS PROCESSOR [address] [place] [id number] PCP - General Family Medicine 08/29/16 Jack Dukes MD [address] [place] [address] Consulting Physician Neurology 08/21/16 Lito Chatterjee MD [address] [place] [address] Consulting Physician General Surgery 04/27/19 Gustabo Falk MD [address] [place] [address] Consulting Physician Radiation Oncology 04/27/19 Amrit Goddard MD [address] [address] Consulting Physician General Surgery 06/08/19 Phan Grant MD [address] [place] [address] Consulting Physician Medical Oncology 02/16/20 documented as of this encounter
--- OUTSIDE RECORDS SUMMARY | 2025-02-10 10:41 | XMS_ITS | Encounter Summary ---
Author Organization [facility] Address [address] [place] [address] Phone Care Team Providers Care Roading Engineer Name Role Phone Jack Dukes MD Unavailable [phone] Arianne Alarcon APRN, MAGNETIC HEALER Primary Care Provider [phone] Lito Chatterjee MD Unavailable [phone] Gustabo Falk MD Unavailable [phone] Amrit Goddard MD Unavailable Phan Grant MD Unavailable [phone] Reason for Visit * Reason Comments Medication Refill Encounter Details Date Type Department Care Team (Late st Contact Info) Description 12/06/2020 [facility]ill [facility] - [place] [address] [place] [address] Jack Dukes MD [address] [place] [address] Medication Refill Social History Tobacco Use Types Packs/Day Years Used Date Smoking Tobacco: Never Smokeless Tobacco: Never Alcohol Use Standard Drinks/Week Comments No 0 (1 standard drink = 0.6 oz pur e alcohol) Comments No Sex and Gender Information Value Date Recorded Sex Assigned at Not on file Legal Sex Female 2:52 AM LEARNING AND DEVELOPMENT ANALYST Gender Identity Not on file Sexual Orientation Not on file 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 on file Not on file [...] Info) Description 02/17/2025 10:15 AM CDT Telemedicine [facility] Medical [facility] - Neurology [facility] [address] [place] [address] Jack Dukes MD [address] [place] [address] 08/25/2025 2:00 PM LEARNING AND DEVELOPMENT ANALYST Office Visit [facility] Oncology Services [address] [place] [address] Phan Grant MD [address] [place] [address] Discharge Disposition: Discharged to home or Selfcare documented as of this encounter Visit Diagnoses Diagnosis 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) documented in this encounter Care Teams Roading Engineer Relationship Specialty Start Date End Date Arianne Alarcon APRN, ROMEL [address] [place] [address] PCP - General Family Medicine 08/29/16 Jack Dukes MD [address] [place] [address] Consulting Physician Neurology 08/21/16 Lito Chatterjee MD [address] [place] [address] Consulting Physician General Surgery 04/27/19 Gustabo Falk MD [address] [address] Consulting Physician Radiation Oncology 04/27/19 Amrit Goddard MD #[address] [address] Consulting Physician General Surgery 06/08/19 Phan Grant MD [address] [place] [address] Consulting Physician Medical Oncology 02/16/20 documented as of this encounter
--- OUTSIDE RECORDS SUMMARY | 2025-02-10 10:41 | XMS_ITS | Continuity of Care Document ---
Author Organization [facility] Address [address] [place] [address] [place] [address] Phone Care Team Providers Care Showroom Executive Director Name Role Phone Massimo Herring MD Unavailable [...] Diagnoses Date Provider Providers Copied on Encounter [facility], [address] [place], [place], [id number], tel:[phone] [facility] Medicine No Information [address] [facility] [place], [id number] , [place]. tel:[phone] Referring Provider: Massimo Herring, [address] [place], [place], [id number]. tel:[phone] OFFICE/OUTPAT IENT VISIT, [facility], [address] [place], [place], [id number], tel:[phone] [facility] Seizure (chief complaint) depression (chief complaint) ADD (chief complaint) back pain (chief complaint) Epilepsy, unspecified, without mention of intractable epilepsyLumbago [address] [place], [place], [id number] , . tel:[phone] Referring Provider: Massimo Herring, [address] [place], [place], [id number]. tel:[phone] Family History Family Member Type Diagnosis Age [...]
--- NOTE | 2025-02-10 10:42 | ECG_ITS ---
Test Date: 2025-02-10 11:00:33 Measurements Intervals [place] Rate: 81 P: 31 MI: 197 QRS: 6 QRSD: 71 T: 18 QT: 365 QTc: 425 Interpretive Statements SINUS RHYTHM LOW QRS VOLTAGE IN PRECORDIAL LEADS BORDERLINE ECG No previous ECG available for comparison Electronically Signed On 02-10-2025 11:23:53 CDT by Fernando Novoa D.O.
--- OUTSIDE RECORDS SUMMARY | 2025-02-10 10:42 | XMS_ITS | Encounter Summary ---
Author Organization [facility] Address [address] [place] [address] Phone Care Team Providers Care Dough Panner Name Role Phone Jack Dukes MD Unavailable [phone] Arianne Alarcon APRN, BOGGER OPERATOR Primary Care Provider [phone] Lito Chatterjee MD Unavailable [phone] Gustabo Falk MD Unavailable [phone] Amrit Goddard MD Unavailable Phan Grant MD Unavailable [phone] Reason for Visit * Reason Comments Medication Refill Encounter Details Date Type Department Care Team (Late st Contact Info) Description 02/17/2023 Refill [facility] - Neurology [facility] [address] [place] [address] Jack Dukes MD [address] [place] [address] Medication Refill Social History Tobacco Use Types Packs/Day Years Used Date Smoking Tobacco: Never Smokeless Tobacco: Never Alcohol Use Standard Drinks/Week Comments No 0 (1 standard drink = 0.6 oz pur e alcohol) Comments No Sex and Gender Information Value Date Recorded Sex Assigned at Not on file Legal Sex Female 2:52 AM COMMUTATOR ASSEMBLER Gender Identity Not on file Sexual Orientation Not on file 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 Showing recent visits within past 365 days and meeting all other requirements Future Appointments No visits were found meeting these conditions. Showing future appointments within next 90 days and meeting all other requirements documented in this encounter Plan of Treatment Upcoming Encounters Date Type Department Care Team (Late st Contact Info) Description 02/17/2025 10:15 AM CDT Telemedicine [facility] Neu[facility] [address] [place] [address] Jack Dukes MD [address] [place] [address] 08/25/2025 2:00 PM COMMUTATOR ASSEMBLER Office Visit [facility] On[facility] Services [address] [place] [id number] Phan Grant MD [address] [place] [address] Discharge Disposition: Discharged to home or Selfcare documented as of this encounter Visit Diagnoses Diagnosis 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) documented in this encounter Care Teams Dough Panner Relationship Specialty Start Date End Date Arianne Alarcon APRROMEL Whipple [address] [place] [address] PCP - General Family Medicine 08/29/16 Jack Dukes MD [address] [place] [address] Consulting Physician Neurology 08/21/16 Lito Chatterjee MD [address] [place] [address] Consulting Physician General Surgery 04/27/19 Gustabo Falk MD [address] [place] [address] Consulting Physician Radiation Oncology 04/27/19 Amrit Goddard MD [address] [address] [address] Consulting Physician General Surgery 06/08/19 [place] [address] [place] [address] Consulting Physician Medical Oncology 02/16/20 documented as of this encounter
--- OUTSIDE RECORDS SUMMARY | 2025-02-10 10:42 | XMS_ITS | Encounter Summary ---
Author Organization [facility] Address [address] [facility] [place] [address] Phone Care Team Providers Care Zookeeper Name Role Phone Jack Dukes MD Unavailable [phone] Arianne Alarcon APRN, CNP Primary Care Provider [phone] Lito Chatterjee MD Unavailable Gustabo Falk MD Unavailable [phone] Amrit oGddard MD Unavailable Phan Grant MD Unavailable [phone] Reason for Visit * Reason Comments Medication Refill Encounter Details Date Type Department Care Team (Late st Contact Info) Description 05/22/2020 Refill [facility] Services [address] [place] [address] Phan Grant MD [address] [place] [address] Medication Refill Social History Tobacco Use Types Packs/Day Years Used Date Smoking Tobacco: Never Smokeless Tobacco: Never Alcohol Use Standard Drinks/Week Comments No 0 (1 standard drink = 0.6 oz pur e alcohol) Comments No Sex and Gender Information Value Date Recorded Sex Assigned at Not on file Legal Sex Female 2:52 AM PILLAR WORKER Gender Identity Not on file Sexual Orientation Not on file 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 No / Unsure 05/22/2020 3:41 PM PILLAR WORKER documented as of this encounter Miscellaneous Notes * Telephone Encounter - Tanya Hylton APN, CNP - 05/26/2020 2:17 PM PILLAR WORKER Refill Lorazepam 0.5 mg tabs, 1 tab BID as needed. # 60 tabs, 3 refills. AR WORKER documented in this encounter Plan of Treatment Upcoming Encounters Date Type Department Care Team (Late st Contact Info) Description 02/17/2025 10:15 AM CDT Telemedicine [facility] [address] [place] [address] Jack Dukes MD [address] [place] [address] 08/25/2025 2:00 PM PILLAR WORKER Office Visit [facility] On[facility] Services [address] [place] [address] Phan Grant MD [address] [place] [address] Discharge Disposition: Discharged to home or Selfcare documented as of this encounter Visit Diagnoses Not on filedocumented in this encounter Care Teams Zookeeper Relationship Specialty Start Date End Date Arianne Alarcon APRN, CNP [address] [place] [address] PCP - General Family Medicine 08/29/16 Jack Dukes MD [address] [place] [address] Consulting Physician Neurology 08/21/16 Lito Chatterjee MD [address] [place] [address] Consulting Physician General Surgery 04/27/19 Gustabo Falk MD [address] [place] [address] Consulting Physician Radiation Oncology 04/27/19 Amrit Goddard MD [address] [address] Consulting Physician General Surgery 06/08/19 Phan Grant MD [address] [place] [address] Consulting Physician Medical Oncology 02/16/20 documented as of this encounter
--- OUTSIDE RECORDS SUMMARY | 2025-02-10 10:42 | XMS_ITS | Encounter Summary ---
Author Organization [facility] Address [address] [place] [address] Phone Care Team Providers Care Medical Office Assistant Instructor Name Role Phone Jack Dukes MD Unavailable Arianne Alarcon APRN, RUBBER COMPOUNDER Primary Care Provider [phone] Lito Chatterjee MD Unavailable Gustabo Falk MD Unavailable Amrit Goddard MD Unavailable Phan Grant MD Unavailable Encounter Details Date Type Department Care Team (Latest Contact Info) Description 08/26/2024 Transcribe Orders [facility] [address] [place] [id number] Arianne Alarcon APRN, RUBBER COMPOUNDER [address] [place] [address] Mixed hyperlipidemia (Primary Dx); Alcohol [...] on file Legal Sex Female 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 Gender Identity Not on file Sexual Orientation Not on file 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 Not on file Not on file Not on file documented as of this encounter Plan of Treatment Upcoming Encounters Date Type Department Care Team (Late st Contact Info) Description 02/17/2025 10:15 AM CDT Telemedicine [facility] [address] [place] [address] Jack Dukes MD [address] [place] [address] 08/25/2025 2:00 PM TURRET LATHE SET UP OPERATOR Office Visit [facility] Oncology Services [address] [place] [address] Phan Grant MD [address] [place] [address] Discharge Disposition: Discharged to home or Selfcare Scheduled Orders Name Type Priority Associated Diagnoses Orde r Schedule URINE DRUG SCREEN Lab Routine Mixed hyperlipidemia Alcohol abuse, uncomplicated Gastroesophageal reflux disease without esophagitis Expected: 08/26/2024 (Approximate), Expires: 08/26/2025 documented as of this encounter Procedures Procedure Name Priority Date/Time Associated Diagnosis Comments LIPID PANEL Routine 10/29/2024 12:00 AM CDT Mixed hyperlipidemia Alcohol abuse, uncomplicated Gastroesophageal reflux disease without esophagitis CMP (COMPREHENSIVE METABOLIC PANEL) Routine 10/29/2024 12:00 AM CDT Mixed hyperlipidemia Alcohol abuse, uncomplicated Gastroesophageal reflux disease without esophagitis COMPLETE BLOOD COUNT (CBC) WITH DIFF Routine 10/29/2024 12:00 AM CDT Mixed hyperlipidemia Alcohol abuse, uncomplicated Gastroesophageal reflux disease without esophagitis documented in this encounter Results * CMP (COMPREHENSIVE METABOLIC PANEL) (10/29/2024 12:00 AM CDT) Blood us Arianne Alarcon MANAGER FLIGHT, RUBBER COMPOUNDER CHEMISTRY ORDERABLES Margarita l Result SCAN * COMPLETE BLOOD COUNT (CBC) WITH DIFF (10/29/2024 12:00 AM CDT) Blood Arianne Alarcon APRN, CNP HEMATOLOGY ORDERABLES Fin al Result Performing Organization Address [facility] de Phone Number SCAN * LIPID PANEL (10/29/2024 12:00 AM CDT) CHOLESTEROL 182 SCAN HDL CHOLESTEROL 49 SCAN LDL 101 SCAN Blood Arianne Alarcon APRN, CNP CHEMISTRY ORDERABLES Margarita l Result Performing Organization Address [facility] de Phone Number SCAN documented in this encounter Visit Diagnoses Diagnosis Mixed hyperlipidemia- Primary Alcohol abuse, uncomplicated Gastroesophageal reflux disease without esophagitis Esophageal reflux documented in this encounter Care Teams Medical Office Assistant Instructor Relationship Specialty Start Date End Date Arianne Alarcon APRN, CNP [address] [place] [address] PCP - General Family Medicine 08/29/16 Jack Dukes MD [address] [place] [address] Consulting Physician Neurology 08/21/16 Lito Chatterjee MD [address] [place] [address] Consulting Physician General Surgery 04/27/19 Gustabo Falk MD [address] [place] [address] Consulting Physician Radiation Oncology 04/27/19 Amrit Goddard MD [address] [facility] [address] [address] Consulting Physician General Surgery 06/08/19 Phan Grant MD [address] [place] [address] Consulting Physician Medical Oncology 02/16/20 documented as of this encounter
--- OUTSIDE RECORDS SUMMARY | 2025-02-10 10:42 | XMS_ITS ---
Author Organization [facility] Address [address] [place] [address] Phone Care Team Providers Care Glove Tagger Name Role Phone Jack Dukes MD Unavailable [phone] Arianne Alarcon APRN, TORCH BURNER Primary Care Provider [phone] Lito Chatterjee MD Unavailable [phone] Gustabo Falk MD Unavailable [phone] Amrit Goddard MD Unavailable hPan Grant MD Unavailable [phone] Active Problems * This document contains information received from the source organization and may not represent a complete record from that organization. Problem Noted Date Diagnosed Date Alcohol abuse [...] from 04/27/2019:Stage IIB(cT2, cN0, cM0, G3, ER+, NJ-, HER2-) - Signed by Gustabo Falk MD on 04/28/2019 Pathologic stage from 04/27/2019:Stage IIB(pT2, pN1mi(sn), cM0, G3, ER+, NJ-, HER2-) - Unsigned Premenopausal patient 04/22/2019 Seizures [...]
--- OUTSIDE RECORDS SUMMARY | 2025-02-10 10:42 | XMS_ITS | Clinical Summary ---
Author Organization [facility] Address [address] [place] [address] Care Team Providers Care Mail Messenger Name Role Phone Arianne Alarcon NP Primary Care Provider [phone] Derrick Walker MD Unavailable [phone] Allergies Active Allergy Reactions Criticality Noted Date Comments Penicillins Anaphylaxis High 03/29/2010 Sulfa (Sulfonamide Antibiotics) Anaphylaxis High Medications lamoTRIgine (LaMICtal) 100 mg tablet Take 1 tablet (100 mg total) by mouth 2 (two) times a day Active escitalopram (LEXAPRO) 20 mg tablet Take 1 tablet (20 mg total) by mouth every morning Active zolpidem (AMBIEN) 5 mg tablet Take 2 tablets (10 mg total) by mouth nightly 08/30/19 20 Active lacosamide (VIMPAT) 100 mg tablet Take 1 tablet (100 mg total) by mouth 2 (two) times a day Active omeprazole OTC (PriLOSEC OTC) 20 mg EC tablet Take 1 tablet (20 mg total) by mouth daily Active thiamine (VITAMIN B1) 100 mg tablet Take 1 tablet (100 mg total) by mouth daily 30 tablet 1 01/29/20 25 026 Active multivitamin with folic acid 400 mcg tablet Take 1 tablet by mouth daily 30 tablet 1 01/29/20 25 026 Active gabapentin (NEURONTIN) 300 mg capsule Take 3x/day for 2days, then 2x/day for 2days, then stop 10 capsule 01/29/20 25 Active chlordiazePOXID E (LIBRIUM) 10 mg capsule Take 1 capsule (10 mg total) by mouth 3 (three) times a day as needed for anxiety or withdrawal symptoms 15 capsule 01/29/20 25 Active therapeutic multivitamin (THERA) tabletIndicatio ns:Vitamin Deficiency Prevention Take 1 tablet by mouth every morning 025 Discontinued(S top Taking at Discharge) acetaminophen (TYLENOL) 500 mg tablet Take 1 tablet (500 mg total) by mouth every 6 (six) hours as needed for pain 30 tablet 08/03/19 21 025 Discontinued(S top Taking at Discharge) diphenhydrAMINE (BENADRYL) 50 mg capsule Take 50 mg by mouth every 6 (six) hours as needed for itching or allergies 025 Discontinued(S top Taking at Discharge) oxyCODONE (ROXICODONE) 5 mg immediate release tabletIndicatio ns:Pain Take 1 tablet (5 mg total) by mouth every 6 (six) hours as needed for pain 10 tablet 03/16/20 21 025 Discontinued(S top Taking at Discharge) buPROPion SR (WELLBUTRIN SR) 150 mg 12 hr tablet Take 1 tablet (150 mg total) by mouth 2 (two) times a day 025 Discontinued(S top Taking at Discharge) chlordiazePOXID E (LIBRIUM) 10 mg capsule Take 1 capsule (10 mg total) by mouth 3 (three) times a day as needed for anxiety or withdrawal symptoms for up to 5 days 15 capsule 08/06/19 25 025 Discontinued gabapentin (NEURONTIN) 300 mg capsule Take 1 capsule (300 mg total) by mouth nightly 025 Discontinued chlordiazePOXID E (LIBRIUM) 10 mg capsule Take 1 capsule (10 mg total) by mouth 3 (three) times a day as needed for anxiety or withdrawal symptoms 15 capsule 01/29/20 25 025 Discontinued Active Problems Problem Noted Date Diagnosed Date Alcohol withdrawal syndrome without complication 01/26/2025 Alcohol withdrawal syndrome with complication Alcohol withdrawal syndrome, uncomplicated 08/04 Hx of breast cancer 07/31/2020 Overview (07/31/2020): Added automatically from request for surgery [id number] History of breast cancer 02/10/2020 Overview (02/10/2020): Added automatically from request for surgery [id number] Anxiety 02/08/2020 Sensory neuropathy 02/08/2020 Nodule of [...] Encounters Date Type Department Care Team Description 01/31/2025 Documentation [facility] [address] [place] [id number] Shanice Serna 01/25/2025 10:58 PM CDT - 01/28/2025 12:56 PM CDT Hospital Encounter [facility] [address] [facility] [address] [place] [id number] Sol Yates MD Lun, Yu, MD Smith, Thomas Hamilton, MD Alcohol withdrawal syndrome without complication (HCC) (Primary Dx) Discharge Disposition: Discharge to an IP Rehab facility 01/23/2025 Documentation [facility] [address] [place], [place] [phone] Sheryl Montanez 01/22/2025 AMH Enrollment [facility] [address] [place], [place] [phone] Sheryl Montanez 01/21/2025 Documentation [facility] [address] [place] [phone] Ana Nair 01/20/2025 9:33 PM CDT - 01/23/2025 5:11 PM CDT Hospital Encounter [facility] [address] [place] [address] Gabo Santos MD Sargsyan, Narine, MD Alcohol withdrawal syndrome with complication (HCC) (Primary Dx) Discharge Disposition: Left Against Medical Advice 01/20/2025 Documentation [facility] [address] [place], [place] [phone] Ana Nair from Last 3 Months Immunizations [...] PORTACATH PLACEMENT Left MASTECTOMY 12/24/2019 Bilateral TISSUE KNIT GOODS MENDER PLACEMENT 12/24/2019 Bilateral Removal Left Port a [...] drink = 0.6 oz pur e alcohol) [facility] Utilities Answer Date Recorded In the past 12 months has YellowSchedule, gas, oil, or water Fluid-1 threatened to shut off services in your home? No 01/26/2025 Social Connection and Isolat ion Panel [NHANES] Answer Date Recorded In a typical week, how many times do you talk on the phone with family, friends, or neighbors? Three times a week 01/26/2025 How often do you get togethe r with friends or relatives? Twice a week 01/26/2025 How often do you attend chur ch or oriental orthodox services? More than 4 times per year 01/26/2025 Do you belong to any clubs o r organizations such as adventist groups, unions, fraternal or athletic groups, or school groups? No 01/26/2025 How often do you attend meet ings of the clubs or organizations you belong to? Never 01/26/2025 Are you , , di vorced, , never , or living with a partner? Never 01/26/2025 AUDIT-C Answer Date Recorded Q1: How often do you have a drink containing alcohol? 4 or more times a week 01/21/2025 Q2: How many drinks containi ng alcohol do you have on a typical day when you are drinking? 10 or more Q3: How often do you have si x or more drinks on one occasion? Daily or almost daily 01/21/2025 Overall Financial Resource Strain (CARDIA) Answe r Date Recorded How hard is it for you to pa y for the very basics like food, housing, medical care, and heating? Somewhat hard 01/26/2025 Hunger Vital Sign Answer Date Recorded Within the past 12 months, y ou worried that your food would run out before you got the money to buy more. Never true 01/27/20 25 Within the past 12 months, t he food you bought just didn't last and you didn't have money to get more. Never true 01/26/2025 PRAPARE - Transportation Answer Date Re corded In the past 12 months, has l ack of transportation kept you from medical appointments or from getting medications? No 01/05 In the past 12 months, has l ack of transportation kept you from meetings, work, or from getting things needed for daily living? No 01/26/2025 Housing Stability Vital Sign Answer Edgar e Recorded In the last 12 months, was t here a time when you were not able to pay the mortgage or rent on time? Yes 01/26/2025 In the past 12 months, how m any times have you moved where you were living? 0 01/26/2025 At any time in the past 12 m [facility], were you homeless or living in a retirement (including now)? No 01/26/2025 Personal Safety Answer Date Recorded Have you ever been in or are you currently in a harmful physical or emotional relationship or is someone making you feel afraid or unsafe? Denies 01/26/2025 Comments No Sex and Gender Information Value Date Recorded Sex Assigned at Not on file Legal Sex Female 12:33 AM HR OPERATIONS ADVISOR Gender Identity Female 06/06/2021 8:34 AM HR OPERATIONS ADVISOR Sexual Orientation Straight 06/06/2021 8: 34 AM HR OPERATIONS ADVISOR Obstetrics History Last Filed Vital Signs Vital Sign Reading Time Taken Comments Blood Pressure 106/86 01/28/2025 7:42 AM CDT Pulse 76 01/28/2025 7:42 AM CDT Temperature 36.4 C (97.5 F) 01/28/2025 7:42 AM CDT Respiratory Rate 18 01/28/2025 7:42 AM CDT Oxygen Saturation 97% 01/28/2025 7:42 AM CDT Inhaled Oxygen Concentration - - Weight 75.7 kg (166 lb 14.4 oz) 01/26/2025 2:33 AM CDT Height 165.1 cm (5' 5) 01/26/2025 2:33 AM CDT Body Mass Index 27.77 01/26/2025 2:33 AM CDT Plan of Treatment Health Maintenance Due Date Last Done Comments Cervical Cancer Screening 1976 Colon Cancer Screening-Colonoscopy 1976 Depression Screening 1976 Hepatitis C Screening 1976 Hepatitis B Screening 1994 Regular Well Visit/Exam 18-64 1994 Breast Cancer Screening-Mammogram 05/11/2016 05/11/2015 Influenza Vaccine (#1) 2025 , 06/27/2021, 04/07/2020, Additional history exists DTaP/Tdap/Td Vaccine (2 - Td or Tdap) 03/07/2032 03/07/2022, 02/19/2011, 02/16/2009 Pneumococcal vaccine <65 Aged Out No longer eligible based on patient's age to complete this topic Medical Devices Implanted Type Area Esthetician Device Identifier Shelf Expiration Date Model / Serial / Lot [employer]er[employer] 68-120 Natrelle 9cm Style 68mp Smooth Anterior Diaphragm Valve P3cm Latex Free - [id number] - [id number] Implanted:Qty: 1 on 03/16/2021 by Derrick Walker MD at [facility] Breast Left: Breast [employer] 04/09/2024 68-120 / [id number] / Allergan [employer] [id number] Alloderm Select 86n67od Allograft Regenerative Freeze Dried - [id number] - [id number] Implanted:Qty: 1 on 12/24/2019 by Derrick Walker MD at [facility] Left: Breast [employer] 11/03/2020 [id number] / [id number] / Allergan [employer] [id number] Alloderm Select 22s45kd Allograft Regenerative Freeze Dried - [id number] - [id number] Implanted:Qty: 1 on 12/24/2019 by Derrick Walker MD at [facility] Right: Breast [employer] 10/04/2020 [id number] / [id number] / Synovis Luxtech Allian [id number] Sargent Microvascular 2.5mm Ring Pin Protective Cover Jaw Assembly Latex Free - [id number] Implanted:Qty: 1 on 04/06/2020 by Derrick Walker MD at [facility] Right: Breast Synovis [employer] 10/13/2024 [id number] / / Syn[employer] Works [id number] Sargent Microvascular 2.5mm Ring Pin Protective Cover Jaw Assembly Latex Free - [id number] Implanted:Qty: 1 on 04/06/2020 by Derrick Walker MD at [facility] Left: Breast Synovis Micro M[employer] Allian 10/23/2024 [id number] / / [id number] Allergan [employer] 68-120 Natrelle 9cm Style 68mp Smooth Anterior Diaphragm Valve P3cm Latex Free - [id number] - [id number] Implanted:Qty: 1 on 03/16/2021 by Derrick Walker MD at [facility] Left: Breast Aller[employer] 08/30/2023 68-120 / [id number] / Explanted Type Area Esthetician Device Identifier Shelf Expiration Date Model / Serial / Lot Sientra Inc Allox2-[id number] Allox2 15x13.8cm Texture Integrate Port Breast P6.4-7.9cm Full - [id number] Implanted:Qty: 1 on 12/24/2019 by Derrick Walker MD at [facility] Explanted:Qty: 1 on 04/06/2020 by Derrick Walker MD at [facility] Breast Left: Breast S[employer] Inc 11/03/2024 [id number] / / Sientra Inc Allox2-[id number] Allox2 15x13.8cm Texture Integrate Port Breast P6.4-7.9cm Full - [id number] Implanted:Qty: 1 on 12/24/2019 by Derrick Walker MD at [facility] Explanted:Qty: 1 on 04/06/2020 by Derrick Walker MD at [facility] Right: Breast S[employer] Inc 11/03/2024 [id number]-[id number] 5E / / Procedures Procedure Name Priority Date/Time Associated Diagnosis Comments EGFR Routine 01/26/2025 5:32 AM CDT DIFFERENTIAL AUTO Routine 01/26/2025 5:3 2 AM CDT CBC WITH AUTO DIFFERENTIAL Routine 01/26/2025 5:32 AM CDT MAGNESIUM Routine 01/26/2025 5:32 AM CDT COMPREHENSIVE METABOLIC PANEL Routine 01/26/2025 5:32 AM CDT POCT HCG, URINE Routine 01/26/2025 1:00 AM CDT URINALYSIS, MICROSCOPIC ONLY STAT 01/25/2025 10:03 PM CDT DRUGS OF ABUSE SCREEN, URINE WITHOUT CONFIRMATION STAT 01/25/2025 10:03 PM CDT URINALYSIS AND REFLEX TO MICROSCOPIC AND CULTURE STAT 01/25/2025 10:03 PM CDT ECG 12-LEAD STAT 01/25/2025 8:07 PM CDT EGFR STAT 01/25/2025 7:59 PM CDT DIFFERENTIAL AUTO STAT 01/25/2025 7:5 9 PM CDT ETHANOL STAT 01/25/2025 7:59 PM CDT THYROID FUNCTION CASCADE STAT 01/25/2025 7:59 PM CDT COMPREHENSIVE METABOLIC PANEL STAT 01/25/2025 7:59 PM CDT CBC WITH AUTO DIFFERENTIAL STAT 01/25/2025 7:59 PM CDT EGFR Routine 01/22/2025 6:09 AM CDT CBC WITHOUT DIFFERENTIAL Routine 01/22/2025 6:09 AM CDT COMPREHENSIVE METABOLIC PANEL Routine 01/22/2025 6:09 AM CDT DRUGS OF ABUSE SCREEN, URINE WITHOUT CONFIRMATION STAT 01/21/2025 1:10 AM CDT URINALYSIS AND REFLEX TO MICROSCOPIC AND CULTURE STAT 01/21/2025 1:10 AM CDT EGFR STAT 01/21/2025 12:41 AM CDT DIFFERENTIAL AUTO STAT 01/21/2025 12: 41 AM CDT SEPSIS LACTATE WITH REFLEX STAT 01/21/2025 12:41 AM CDT COMPREHENSIVE METABOLIC PANEL STAT 01/21/2025 12:41 AM CDT CBC WITH AUTO DIFFERENTIAL STAT 01/21/2025 12:41 AM CDT ETHANOL STAT 01/20/2025 7:05 PM CDT DIAGNOSTIC MAMMOGRAM BILATERAL W MARY ANNE Routine 05/11/2015 11:49 AM HR OPERATIONS ADVISOR from Last 3 Months or Most Recently Relevant to Health Maintenance Results * eGFR (01/26/2025 5:32 AM CDT) Pathologist [facility] eGFR 73 >=60 mL/min/1. 73 m2 Comment: Interpretive Data [...] interpretive data was last reviewed 2021. Blood 01/26/2025 5:32 AM CDT 01/26/2025 5:46 AM CDT us Sol Yates MD LAB BLOOD ORDERABLES nal Result [facility] [address] [facility] Department [place] [address] * (ABNORMAL) Differential, auto (01/26/2025 5:32 AM CDT) [facility] Neutrophil abs 2.32 1.50 - 6.50 K/cumm Imm gran abs 0.01 0.00 - 0.10 K/cumm [facility] Lymphocyte abs 3.41(H) 0.80 - 3.30 K/cumm [facility] Monocyte abs 0.52 0.20 - 0.80 K/cumm [facility] Eosinophil abs 0.00 0.00 - 0.50 K/cumm [facility] Basophil abs 0.03 0.00 - 0.10 K/cumm [facility] Neutrophil pct 36.8 % [facility] Comment: Interpretive Data Percent cell count reference ranges are not reported, since discordance with absolute values may lead to misinterpretation of CBC data. Current Interpretive Data was last revised on 2017. Imm gran pct 0.2 % [facility] Comment: Interpretive Data Percent cell count reference ranges are not reported, since discordance with absolute values may lead to misinterpretation of CBC data. Current Interpretive Data was last revised on 2017. Lymphocyte pct 54.2 % [facility] Comment: Interpretive Data Percent cell count reference ranges are not reported, since discordance with absolute values may lead to misinterpretation of CBC data. Current Interpretive Data was last revised on 2017. Monocyte pct 8.3 % [facility] Comment: Interpretive Data Percent cell count reference ranges are not reported, since discordance with absolute values may lead to misinterpretation of CBC data. Current Interpretive Data was last revised on 2017. Eosinophil pct 0.0 % [facility] Comment: Interpretive Data Percent cell count reference ranges are not reported, since discordance with absolute values may lead to misinterpretation of CBC data. Current Interpretive Data was last revised on 2017. Basophil pct 0.5 % [facility] Comment: Interpretive Data Percent cell count reference ranges are not reported, since discordance with absolute values may lead to misinterpretation of CBC data. Current Interpretive Data was last revised on 2017. Blood 01/26/2025 5:32 AM CDT 01/26/2025 5:46 AM CDT us Sol Yates MD LAB BLOOD ORDERABLES [facility] Result [facility] [address] [facility] Department [place] [address] * CBC with auto differential (01/26/2025 5:32 AM CDT) WBC 6.29 3.80 - 9.90 K/cumm Hgb 12.9 11.9 - 15.5 g/dL [facility] Hct 38.1 35.6 - 45.5 % [facility] Plt 265 150 - 400 K/cumm [facility] MPV 9.1 9.1 - 12.3 fL [facility] RBC 4.24 3.90 - 5.20 M/cumm [facility] MCV 89.9 81.3 - 96.4 fL [facility] MCH 30.4 27.1 - 33.3 pg [facility] MCHC 33.9 32.3 - 35.7 g/dL [facility] RDW CV 13.5 11.1 - 14.9 % [facility] RDW SD 43.9 35.7 - 48.1 fL [facility] NRBC abs 0.00 0.00 - 0.01 K/cumm [facility] Blood 01/26/2025 5:32 AM CDT 01/26/2025 5:46 AM CDT Sol Yates MD LAB BLOOD ORDERABLES Fi nal Result Performing Organization Address City/[facility]/ZIP Co de Phone Number [address] [place] [address] * Magnesium (01/26/2025 5:32 AM CDT) [facility] Magnesium 2.2 1.4 - 2.5 mg/dL Blood 01/26/2025 5:32 AM CDT 01/26/2025 5:46 AM CDT Sol Yates MD LAB BLOOD ORDERABLES Fi nal Result Performing Organization Address City/[facility]/ZIP Co de Phone Number [address] [place] [address] * Comprehensive metabolic panel (01/26/2025 5:32 AM CDT) Pathologist [facility] Sodium 140 135 - 145 mmol/L Potassium, pl 3.3 3.3 - 4.9 mmol/L [facility] Chloride 105 97 - 110 mmol/L [facility] CO2 25 22 - 32 mmol/L [facility] Anion gap 10 2 - 15 mmol/L [facility] BUN 9 6 - 25 mg/dL [facility] Creatinine 0.96 0.60 - 1.10 mg/dL [facility] Glucose 123 70 - 199 mg/dL [facility] Comment: Interpretive Data Fasting glucose >/= 126 [...] interpretive data was last revised 2022. Calcium 8.6 8.5 - 10.3 mg/dL [facility] Bilirubin, total 0.3 0.1 - 1.2 mg/dL [facility] Protein, pl 6.5 6.5 - 8.5 g/dL [facility] Albumin 3.7 3.5 - 5.0 g/dL [facility] Alk phos 108 40 - 130 Units/L [facility] ALT 24 7 - 45 Units/L [facility] AST 24 10 - 45 Units/L [facility] Blood 01/26/2025 5:32 AM CDT 01/26/2025 5:46 AM CDT Sol Yates MD LAB BLOOD ORDERABLES Fi nal Result Performing Organization Address City/State/[facility] Co de Phone Number [facility] [address] [facility] Department [place] [address] * POCT hCG, urine (01/26/2025 1:00 AM CDT) HCG, ur, POC Negative Negative Lot Number [id number] QC Backgroud Clear Acceptable QC Control Line Acceptable Urine 01/26/2025 1:00 AM CDT Sol Yates MD POINT OF CARE TEST ORDE RABLES Final Result * (ABNORMAL) Urinalysis reflex to microscopic and culture Urine (01/25/2025 10:03 PM CDT) Color, ur Straw Yellow Clarity, ur Clear Clear [facility] Specific gravity, ur 1.007 1.003 - 1.030 [facility] pH, urine 5.5 [facility] Comment: Interpretive Data U rine pH is affected by diet, medications, systemic acid-base disturbances, and renal tubular function. pH may affect urinary stone formation. For example, urine pH below 6.0 may help reduce the tendency for calcium phosphate stones and pH greater than 6.0 may reduce the tendency for uric acid stone formation. Source: [facility] Current Interpretive Data was last revised on 2017 Protein, ur ql Negative Negative [facility] Glucose, ur ql Negative Negative [facility] Ketones, ur Negative Negative [facility] Bilirubin, ur Negative Negative [facility] Blood, ur Negative Negative [facility] Urobilinogen, ur <2.0 <2.0 mg/dL [facility] Nitrite, ur Negative Negative [facility] Leukocyte esterase, ur 3+(A) Negative [facility] UA reflex comment Reflex to microscopic UA will be performed. [facility] Urine 01/25/2025 10:0 3 PM CDT 01/25/2025 10:06 PM CDT us Sol Yates MD LAB MICROBIOLOGY - [facility] ORDERABLES Final Result [facility] [address] [facility] Department [place] [address] * (ABNORMAL) Drugs of Abuse Screen, Urine without Confirmation (01/25/2025 10:03 PM CDT) Amphetamine, ur Not Detected CutOff 500ng/mL Comment: Interpretive Data - Amphetamines: Samples containing greater than 500 ng/mL d-methamphetamine or other cross-reacting amphetamine compounds are reported as positive. Amphetamine immunoassays are subject to significant false positive rates due to cross-reactivity of non-amphetamine drugs. Confirmatory testing required for definitive results. Current Interpretive Data was last reviewed 2023. Barbiturates, ur Not Detected CutOff 200ng/mL [facility] Comment: Interpretive Data - Barbiturates: Samples containing greater than 200 ng/mL secobarbital or other cross-reacting barbiturate compounds are reported as positive. False positive and false negative results are possible. Confirmatory testing required for definitive results. Current Interpretive Data was last reviewed 2023. Benzodiazepines, ur Screen Positive, presumptive (A) CutOff 100ng/mL [facility] Comment: Interpretive Data - Benzodiazepines: Samples containing greater than 100 ng/mL nordiazepam or other cross-reacting compounds are reported as positive. False positive and false negative results are possible. Confirmatory testing required for definitive results. Current Interpretive Data was last reviewed 2023. Cannabinoids, ur Not Detected CutOff 50 ng/mL [facility] Comment: Interpretive Data - Cannabinoids: Samples containing greater than 50 ng/mL delta-9 THC -COOH or other cross- reacting compounds are reported as positive. False positive and false negative results are possible. Confirmatory testing required for definitive results. Current Interpretive Data was last reviewed 2023. Cocaine, ur Screen Positive, presumptive (A) CutOff 150ng/mL [facility] Comment: Interpretive Data - Cocaine: Samples containing greater than 150 ng/mL benzoylecgonine or other cross- reacting compounds are reported as positive. False positive and false negative results are possible. Confirmatory testing required for definitive results. Current Interpretive Data was last reviewed 2023. Fentanyl, Ur Not Detected CutOff 5 ng/mL [facility] Comment: Interpretive Data - Fentanyl: Samples containing greater than 5 ng/mL norfentanyl, fentanyl, or other cross-reacting fentanyl compounds are reported as positive. False positive and false negative results are possible. Confirmatory testing required for definitive results. Current Interpretive Data was last reviewed 2023. Methadone, ur Not Detected CutOff 300ng/mL [facility] Comment: Interpretive Data - Methadone: Samples containing greater than 300 ng/mL d,l-methadone or other cross-reacting compounds are reported as positive. False positive and false negative results are possible. Confirmatory testing required for definitive results. Current Interpretive Data was last reviewed 2023. Opiates, ur Not Detected CutOff 300ng/mL [facility] Comment: Interpretive Data - Opiates: Samples containing greater than 300 ng/mL morphine or other cross-reacting compounds are reported as positive. False positive and false negative results are possible. Confirmatory testing required for definitive results. Current Interpretive Data was last reviewed 2023. Oxycodone, ur Not Detected CutOff 100ng/mL [facility] Comment: Interpretive Data - Oxycodone: Samples containing greater than 100 ng/mL oxycodone or other cross-reacting compounds are reported as positive. False positive and false negative results are possible. Confirmatory testing required for definitive results. Current Interpretive Data was last reviewed 2023. Phencyclidine, ur Not Detected CutOff 25 ng/mL [facility] Comment: Interpretive Data - Phencyclidine: Samples containing greater than 25 ng/mL phencyclidine or other cross-reacting compounds are reported as positive. False positive and false negative results are possible. Confirmatory testing required for definitive results. Current Interpretive Data was last reviewed 2023. Urine Creatinine 60 mg/dL [facility] Comment: Interpretive Data Urine Creatinine: < 10 mg/dL is extremely dilute = or > 10 but < 20 mg/dL is dilute = or > 20 mg/dL is normal Current Interpretive Data was last revised on 2017. Urine 01/25/2025 10:0 3 PM CDT 01/25/2025 10:06 PM CDT Narrative [facility] - 01/25/2025 10:53 PM CDT Drug of Abuse screening is performed by immunoassay for medical purposes only. This is not to be used for Pain Management purposes. Sol Yates MD LAB URINE ORDERABLES nal Result [facility] [address] [facility] Department [place] [address] * (ABNORMAL) Urinalysis, microscopic only (01/25/2025 10:03 PM CDT) WBC, ur 0-5 0 - 5 /HPF RBC, ur 0-2 0 - 2 /HPF [facility] Epithelial cells, squamous, ur 1-5 0 - 5 /HPF [facility] Bacteria, ur Trace(A) [facility] Mucous, ur Present(A) [facility] Culture Reflex Comment Reflex conditions for urine culture (WBC >10) not met. [facility] Urine 01/25/2025 10:0 3 PM CDT 01/25/2025 10:06 PM CDT Sol Yates MD LAB URINE ORDERABLES Fi nal Result KORY [address] Department [place] [address] * ECG 12 lead (01/25/2025 8:07 PM CDT) Ventricular Rate EKG/Min 108 BPM [facility] Atrial Rate 108 BPM [facility] WY-Interval (MSEC) 168 ms [facility] QRS-Interval (MSEC) 68 ms [facility] QT-Interval (MSEC) 342 ms [facility] QTc 458 ms [facility] P Clements 32 degrees [facility] R Clements 5 degrees [facility] T Clements 32 degrees [facility] Diagnosis Sinus tachycardia Possible Inferior infarct , age undetermined Abnormal ECG No previous ECGs available Confirmed by INOCENCIA DUQUE M.D. ([id number]) on 01/26/2025 10:43:48 PM [facility] 01/25/2025 8:07 PM CDT 01/26/2025 10:43 PM CDT Sol Yates MD ECG ORDERABLES Final R esult Performing Organization Address City/[facility] Co de Phone Number [facility] * eGFR (01/25/2025 7:59 PM CDT) eGFR 69 >=60 mL/min/1. 73 m2 Comment: Interpretive Data [...] interpretive data was last reviewed 2021. Blood 01/25/2025 7:59 PM CDT 01/25/2025 8:04 PM CDT us Sol Yates MD LAB BLOOD ORDERABLES nal Result [facility] [address] [facility] Department [place] [address] * Differential, auto (01/25/2025 7:59 PM CDT) Neutrophil abs 4.71 1.50 - 6.50 K/cumm Imm gran abs 0.02 0.00 - 0.10 K/cumm [facility] Lymphocyte abs 3.01 0.80 - 3.30 K/cumm [facility] Monocyte abs 0.61 0.20 - 0.80 K/cumm [facility] Eosinophil abs 0.00 0.00 - 0.50 K/cumm [facility] Basophil abs 0.04 0.00 - 0.10 K/cumm [facility] Neutrophil pct 56.1 % [facility] Comment: Interpretive Data Percent cell count reference ranges are not reported, since discordance with absolute values may lead to misinterpretation of CBC data. Current Interpretive Data was last revised on 2017. Imm gran pct 0.2 % [facility] Comment: Interpretive Data Percent cell count reference ranges are not reported, since discordance with absolute values may lead to misinterpretation of CBC data. Current Interpretive Data was last revised on 2017. Lymphocyte pct 35.9 % [facility] Comment: Interpretive Data Percent cell count reference ranges are not reported, since discordance with absolute values may lead to misinterpretation of CBC data. Current Interpretive Data was last revised on 2017. Monocyte pct 7.3 % [facility] Comment: Interpretive Data Percent cell count reference ranges are not reported, since discordance with absolute values may lead to misinterpretation of CBC data. Current Interpretive Data was last revised on 2017. Eosinophil pct 0.0 % [facility] Comment: Interpretive Data Percent cell count reference ranges are not reported, since discordance with absolute values may lead to misinterpretation of CBC data. Current Interpretive Data was last revised on 2017. Basophil pct 0.5 % [facility] Comment: Interpretive Data Percent cell count reference ranges are not reported, since discordance with absolute values may lead to misinterpretation of CBC data. Current Interpretive Data was last revised on 2017. Blood 01/25/2025 7:59 PM CDT 01/25/2025 8:04 PM CDT Sol Yates MD LAB BLOOD ORDERABLES Fi nal Result Performing Organization Address City/[facility]/ZIP Co de Phone Number [address] [place] [address] * Thyroid Function [place] (01/25/2025 7:59 PM CDT) Pathologist [facility] TSH 1.73 0.30 - 4.20 mcIUnit/mL Blood 01/25/2025 7:59 PM CDT 01/25/2025 8:04 PM CDT Sol Yates MD LAB BLOOD ORDERABLES Fi nal Result Performing Organization Address [facility] Co de Phone Number [address] [address] * (ABNORMAL) CBC with auto differential (01/25/2025 7:59 PM CDT) Pathologist [facility] WBC 8.39 3.80 - 9.90 K/cumm Hgb 13.7 11.9 - 15.5 g/dL [facility] Hct 39.0 35.6 - 45.5 % [facility] Plt 304 150 - 400 K/cumm [facility] MPV 8.9(L) 9.1 - 12.3 fL [facility] RBC 4.42 3.90 - 5.20 M/cumm [facility] MCV 88.2 81.3 - 96.4 fL [facility] MCH 31.0 27.1 - 33.3 pg [facility] MCHC 35.1 32.3 - 35.7 g/dL [facility] RDW CV 13.2 11.1 - 14.9 % [facility] RDW SD 42.9 35.7 - 48.1 fL [facility] NRBC abs 0.00 0.00 - 0.01 K/cumm [facility] Blood Venous blood specimen / Unknown 01/25/2025 7:59 PM CDT 01/25/2025 8:04 PM CDT Sol Yates MD LAB BLOOD ORDERABLES Fi nal Result [facility] [address] [place] [address] * (ABNORMAL) Ethanol (01/25/2025 7:59 PM CDT) Ethanol 14(H) <=10 mg/dL Comment: Interpretive Data Legal limit of intoxication > or = 80 mg/dL Levels > or = 400 mg/dL are potentially TOXIC. Current interpretive data was last revised on 2018. Blood 01/25/2025 7:59 PM CDT 01/25/2025 8:04 PM CDT Sol Yates MD LAB BLOOD ORDERABLES Fi nal Result Performing Organization Address City/[facility]/ZIP Co de Phone Number [address] [place] [address] * (ABNORMAL) Comprehensive metabolic panel (01/25/2025 7:59 PM CDT) Sodium 140 135 - 145 mmol/L Potassium, pl 3.5 3.3 - 4.9 mmol/L [facility] Chloride 104 97 - 110 mmol/L [facility] CO2 21(L) 22 - 32 mmol/L [facility] Anion gap 15 2 - 15 mmol/L [facility] BUN 9 6 - 25 mg/dL [facility] Creatinine 1.00 0.60 - 1.10 mg/dL [facility] Glucose 122 70 - 199 mg/dL [facility] Comment: Interpretive Data Fasting glucose >/= 126 [...] 2022. Calcium 8.9 8.5 - 10.3 mg/dL [facility] Bilirubin, total 0.4 0.1 - 1.2 mg/dL [facility] Protein, pl 7.4 6.5 - 8.5 g/dL [facility] Albumin 4.3 3.5 - 5.0 g/dL [facility] Alk phos 112 40 - 130 Units/L [facility] ALT 30 7 - 45 Units/L [facility] AST 28 10 - 45 Units/L [facility] Blood 01/25/2025 7:59 PM CDT 01/25/2025 8:04 PM CDT us Sol Yates MD LAB BLOOD ORDERABLES Fi nal Result [facility] [address] [facility] Department [place] [address] * eGFR (01/22/2025 6:09 AM CDT) eGFR 82 >=60 mL/min/1. 73 m2 Comment: Interpretive Data [...] interpretive data was last reviewed 2021. Blood 01/22/2025 6:09 AM CDT 01/22/2025 6:58 AM CDT Marilu Pierce NP LAB BLOOD ORDERABLES Final Resul t [facility]) [address] [facility] Department [place] [address] * (ABNORMAL) CBC without differential (01/22/2025 6:09 AM CDT) WBC 6.21 3.80 - 9.90 K/cumm Hgb 14.4 11.9 - 15.5 g/dL [facility]) Hct 42.8 35.6 - 45.5 % [facility] Plt 256 150 - 400 K/cumm [facility]) MPV 9.0(L) 9.1 - 12.3 fL [facility]) RBC 4.80 3.90 - 5.20 M/cumm [facility]) MCV 89.2 81.3 - 96.4 fL [facility]) MCH 30.0 27.1 - 33.3 pg [facility]) MCHC 33.6 32.3 - 35.7 g/dL [facility] RDW CV 13.4 11.1 - 14.9 % [facility] RDW SD 43.6 35.7 - 48.1 fL [facility] NRBC abs 0.00 0.00 - 0.01 K/cumm [facility] ([place]) Blood 01/22/2025 6:09 AM CDT 01/22/2025 6:59 AM CDT Marilu Pierce NP LAB BLOOD ORDERABLES Final Resul t [facility] [address] [facility] Department [place] [address] * Comprehensive metabolic panel (01/22/2025 6:09 AM CDT) Sodium 140 135 - 145 mmol/L [facility] ([place]) Potassium, pl 3.8 3.3 - 4.9 mmol/L [facility]) Chloride 104 97 - 110 mmol/L [facility] CO2 23 22 - 32 mmol/L [facility] Anion gap 13 2 - 15 mmol/L [facility] BUN 13 6 - 25 mg/dL [facility]) Creatinine 0.87 0.60 - 1.10 mg/dL [facility]) Glucose 102 70 - 199 mg/dL [facility] [...] interpretive data was last revised 2022. Calcium 9.2 8.5 - 10.3 mg/dL [facility]) Bilirubin, total 0.4 0.1 - 1.2 mg/dL [facility] ([place]) Protein, pl 7.2 6.5 - 8.5 g/dL [facility] ([place]) Albumin 4.0 3.5 - 5.0 g/dL [facility]) Alk phos 93 40 - 130 Units/L [facility] ALT 25 7 - 45 Units/L [facility] AST 26 10 - 45 Units/L [facility]) Blood 01/22/2025 6:09 AM CDT 01/22/2025 6:58 AM CDT us Marilu Pierce NP LAB BLOOD ORDERABLES Final Resul t [facility] ([place]) [address] [facility] Department [place] [address] * Urinalysis reflex to microscopic and culture Urine (01/21/2025 1:10 AM CDT) Color, ur Yellow Yellow Clarity, ur Clear Clear [facility] ([place]) Specific gravity, ur 1.014 1.003 - 1.030 [facility] ([place]) pH, [...] tendency for uric acid stone formation. Source: [facility] Current Interpretive Data was [...] [facility] ([place]) Leukocyte esterase, ur Negative Negative [facility] ([place]) UA reflex comment Reflex conditions for microscopic UA and culture not met. [facility] ([place]) Urine 01/21/2025 1:10 AM CDT 01/21/2025 1:25 AM CDT us Marilu Pierce NP LAB MICROBIOLOGY - GENERAL ORDER [place] Final Result [facility] ([place]) [address] [facility] Department [place] [address] * (ABNORMAL) Drugs of Abuse Screen, Urine without Confirmation (01/21/2025 1:10 AM CDT) Pathologist [facility] Amphetamine, ur Screen Positive, presumptive (A) CutOff 500ng/mL [facility] ([place]) Comment: Interpretive Data - Amphetamines: Samples containing greater than 500 ng/mL d-methamphetamine or other cross-reacting amphetamine compounds are reported as positive. Amphetamine immunoassays are subject to significant false positive rates due to cross-reactivity of non-amphetamine drugs. Confirmatory testing required for definitive results. Current Interpretive Data was last reviewed 2023. Barbiturates, ur Not Detected CutOff 200ng/mL [facility] ([place]) Comment: Interpretive Data - Barbiturates: Samples containing greater than 200 ng/mL secobarbital or other cross-reacting barbiturate compounds are reported as positive. False positive and false negative results are possible. Confirmatory testing required for definitive results. Current Interpretive Data was last reviewed 2023. Benzodiazepines, ur Screen Positive, presumptive (A) CutOff 100ng/mL [facility] ([place]) Comment: Interpretive Data - Benzodiazepines: Samples containing greater than 100 ng/mL nordiazepam or other cross-reacting compounds are reported as positive. False positive and false negative results are possible. Confirmatory testing required for definitive results. Current Interpretive Data was last reviewed 2023. Cannabinoids, ur Not Detected CutOff 50 ng/mL [facility] ([place]) Comment: Interpretive Data - Cannabinoids: Samples containing greater than 50 ng/mL delta-9 THC -COOH or other cross- reacting compounds are reported as positive. False positive and false negative results are possible. Confirmatory testing required for definitive results. Current Interpretive Data was last reviewed 2023. Cocaine, ur Screen Positive, presumptive (A) CutOff 150ng/mL [facility] ([place]) Comment: Interpretive Data - Cocaine: Samples containing greater than 150 ng/mL benzoylecgonine or other cross- reacting compounds are reported as positive. False positive and false negative results are possible. Confirmatory testing required for definitive results. Current Interpretive Data was last reviewed 2023. Fentanyl, Ur Not Detected CutOff 5 ng/mL [facility] ([place]) Comment: Interpretive Data - Fentanyl: Samples containing greater than 5 ng/mL norfentanyl, fentanyl, or other cross-reacting fentanyl compounds are reported as positive. False positive and false negative results are possible. Confirmatory testing required for definitive results. Current Interpretive Data was last reviewed 2023. Methadone, ur Not Detected CutOff 300ng/mL [facility] ([place]) Comment: Interpretive Data - Methadone: Samples containing greater than 300 ng/mL d,l-methadone or other cross-reacting compounds are reported as positive. False positive and false negative results are possible. Confirmatory testing required for definitive results. Current Interpretive Data was last reviewed 2023. Opiates, ur Not Detected CutOff 300ng/mL [facility] ([place]) Comment: Interpretive Data - Opiates: Samples containing greater than 300 ng/mL morphine or other cross-reacting compounds are reported as positive. False positive and false negative results are possible. Confirmatory testing required for definitive results. Current Interpretive Data was last reviewed 2023. Oxycodone, ur Not Detected CutOff 100ng/mL [facility] ([place]) Comment: Interpretive Data - Oxycodone: Samples containing greater than 100 ng/mL oxycodone or other cross-reacting compounds are reported as positive. False positive and false negative results are possible. Confirmatory testing required for definitive results. Current Interpretive Data was last reviewed 2023. Phencyclidine, ur Not Detected CutOff 25 ng/mL [facility] ([place]) Comment: Interpretive Data - Phencyclidine: Samples containing greater than 25 ng/mL phencyclidine or other cross-reacting compounds are reported as positive. False positive and false negative results are possible. Confirmatory testing required for definitive results. Current Interpretive Data was last reviewed 2023. Urine Creatinine 85 mg/dL [facility] ([place]) Comment: Interpretive Data Urine Creatinine: < 10 mg/dL is extremely dilute = or > 10 but < 20 mg/dL is dilute = or > 20 mg/dL is normal Current Interpretive Data was last revised on 2017. Urine 01/21/2025 1:10 AM CDT 01/21/2025 1:25 AM CDT Narrative [facility] ([place]) - 01/21/2025 1:56 AM CDT Drug of Abuse screening is performed by immunoassay for medical purposes only. This is not to be used for Pain Management purposes. Marilu Stan CHIEF COMPLIANCE OFFICER LAB URINE ORDERABLES Final Resul t [facility] ([place]) [address] [place] [address] * Sepsis Lactate w/ Reflex (01/21/2025 12:41 AM CDT) Sepsis Lactate 1.5 0.7 - 2.0 mmol/L Blood 01/21/2025 12:4 1 AM CDT 01/21/2025 12:41 AM CDT [facility] LAB BLOOD ORDERABLES Final Resul t Performing Organization Address [facility] Co de Phone Number [facility] ([place]) [address] [place] [address] * eGFR (01/21/2025 12:41 AM CDT) eGFR >90 >=60 mL/min/1. 73 m2 Comment: Interpretive Data [...] interpretive data was last reviewed 2021. Blood 01/21/2025 12:4 1 AM CDT 01/21/2025 12:41 AM CDT us Marilu Pierce MELVIN LAB BLOOD ORDERABLES Final Resul t [facility] ([place]) [address] [facility] Department [place] [address] * Differential, auto (01/21/2025 12:41 AM CDT) Neutrophil abs 3.53 1.50 - 6.50 K/cumm Imm gran abs 0.01 0.00 - 0.10 K/cumm [facility] ([place]) Lymphocyte abs 3.13 0.80 - 3.30 K/cumm [facility] ([place]) Monocyte abs 0.38 0.20 - 0.80 K/cumm [facility] ([place]) Eosinophil abs 0.00 0.00 - 0.50 K/cumm [facility] ([place]) Basophil abs 0.04 0.00 - 0.10 K/cumm [facility] ([place]) Neutrophil pct 49.8 % [facility] ([place]) Comment: Interpretive Data Percent cell count reference ranges are not reported, since discordance with absolute values may lead to misinterpretation of CBC data. Current Interpretive Data was last revised on 2017. Imm gran pct 0.1 % [facility] ([place]) Comment: Interpretive Data Percent cell count reference ranges are not reported, since discordance with absolute values may lead to misinterpretation of CBC data. Current Interpretive Data was last revised on 2017. Lymphocyte pct 44.1 % [facility] ([place]) Comment: Interpretive Data Percent cell count reference ranges are not reported, since discordance with absolute values may lead to misinterpretation of CBC data. Current Interpretive Data was last revised on 2017. Monocyte pct 5.4 % [facility] ([place]) Comment: Interpretive Data Percent cell count reference ranges are not reported, since discordance with absolute values may lead to misinterpretation of CBC data. Current Interpretive Data was last revised on 2017. Eosinophil pct 0.0 % [facility] ([place]) Comment: Interpretive Data Percent cell count reference ranges are not reported, since discordance with absolute values may lead to misinterpretation of CBC data. Current Interpretive Data was last revised on 2017. Basophil pct 0.6 % [facility] ([place]) Comment: Interpretive Data Percent cell count reference ranges are not reported, since discordance with absolute values may lead to misinterpretation of CBC data. Current Interpretive Data was last revised on 2017. Blood 01/21/2025 12:4 1 AM CDT 01/21/2025 12:41 AM CDT Marilu Pierce NP LAB BLOOD ORDERABLES Final Resul t [facility] ([place]) 1 [facility] [place] [address] * (ABNORMAL) CBC with auto differential (01/21/2025 12:41 AM CDT) WBC 7.09 3.80 - 9.90 K/cumm Hgb 14.0 11.9 - 15.5 g/dL [facility] ([place]) Hct 39.2 35.6 - 45.5 % [facility] ([place]) Plt 270 150 - 400 K/cumm [facility] ([place]) MPV 8.9(L) 9.1 - 12.3 fL [facility] ([place]) RBC 4.42 3.90 - 5.20 M/cumm [facility] ([place]) MCV 88.7 81.3 - 96.4 fL [facility] ([place]) MCH 31.7 27.1 - 33.3 pg [facility] ([place]) MCHC 35.7 32.3 - 35.7 g/dL [facility] ([place]) RDW CV 13.2 11.1 - 14.9 % [facility] ([place]) RDW SD 43.3 35.7 - 48.1 fL [facility] ([place]) NRBC abs 0.00 0.00 - 0.01 K/cumm [facility] ([place]) Blood 01/21/2025 12:4 1 AM CDT 01/21/2025 12:41 AM CDT Marilu Pierce NP LAB BLOOD ORDERABLES Final Resul t [facility] ([place]) [address] [facility] Department [place] [address] * Comprehensive metabolic panel (01/21/2025 12:41 AM CDT) Sodium 141 135 - 145 mmol/L [facility] ([place]) Potassium, pl 3.6 3.3 - 4.9 mmol/L [facility] ([place]) Chloride 105 97 - 110 mmol/L [facility] ([place]) CO2 24 22 - 32 mmol/L [facility] ([place]) Anion gap 12 2 - 15 mmol/L [facility] ([place]) BUN 8 6 - 25 mg/dL [facility] ([place]) Creatinine 0.79 0.60 - 1.10 mg/dL [facility] ([place]) Glucose 132 70 - 199 mg/dL [facility] ([place]) [...] interpretive data was last revised 2022. Calcium 9.0 8.5 - 10.3 mg/dL [facility] ([place]) Bilirubin, total 0.2 0.1 - 1.2 mg/dL [facility] ([place]) Protein, pl 7.2 6.5 - 8.5 g/dL [facility] ([place]) Albumin 3.9 3.5 - 5.0 g/dL [facility] ([place]) Alk phos 116 40 - 130 Units/L [facility] ([place]) ALT 21 7 - 45 Units/L [facility] ([place]) AST 23 10 - 45 Units/L [facility] ([place]) Comment:HEMOLYZED; Blood 01/21/2025 12:4 1 AM CDT 01/21/2025 12:41 AM CDT us Marilu Pierce NP LAB BLOOD ORDERABLES Final Resul t Performing Organization Address City/[facility]/ZIP Co de Phone Number [facility] [place]) 1 [facility] [place] [address] * (ABNORMAL) Ethanol (01/20/2025 7:05 PM CDT) Ethanol 85(H) <=10 mg/dL [facility] ([place]) Comment: Interpretive Data Legal limit of intoxication > or = 80 mg/dL Levels > or = 400 mg/dL are potentially TOXIC. Current interpretive data was last revised on 2018. Blood 01/20/2025 7:05 PM CDT 01/20/2025 7:12 PM CDT us Gabo Santos MD LAB BLOOD ORDERABLES Final Resu lt Performing Organization Address [facility] Co de Phone Number [facility] ([place]) [address] [facility] [place] [address] * DIAGNOSTIC MAMMOGRAM BILATERAL W MARY ANNE (05/11/2015 11:49 AM HR OPERATIONS ADVISOR) Anatomical Region Laterality Modality Breast Bilateral Mammography 05/11/2015 11:4 9 AM HR OPERATIONS ADVISOR Narrative 05/11/2015 11:11 PM HR OPERATIONS ADVISOR SCREENING MAMM W MARY ANNE BI Acc#: [id number] Screening Mamm Bi Acc#: [id number] DATE OF EXAM: May 11 2015 Performed [...] on: May 11 2015 11:49A Transcribed by: mrr On: May 11 2015 2:42P Approved Electronically by: DR ANTWAN LATHAM M.D. on: May 11 2015 11:11P Attending: ROD DUQUE Requesting: ROD DUQUE Requesting Fax: -- Attending Fax: -- Attending ID: [id number] Requesting ID: [id number] Report To 1 ID: [id number] Report To 1 Name: ROD DUQUE Report To 1 FAX: -- NextGen Order #: Procedure Note Provider, MD Manuelito - 10/31/2016 SCREENING MAMM W MARY ANNE BI Acc#: [id number] Screening Mamm Bi Acc#: [id number] DATE OF EXAM: May 11 2015 Performed [...] Fax: -- Attending Fax: -- Attending ID: [id number] Requesting ID: [id number] Report To 1 ID: [id number] Report To 1 Name: ROD DUQUE Report To 1 FAX: -- NextGen Order #: Historical Provider MD [facility]UH[facility] MAMMO PROCEDURES Margarita l Result from Last 3 Months or Most Recently Relevant to Health Maintenance Insurance [facility] Advance Directives For more information, please contact: [phone] * Full Code (Latest Code Status on File) Date Activated Date Inactivated Comments 01/26/2025 2:30 AM 01/28/2025 5:01 PM * Full Code Date Activated Date Inactivated Comments 01/21/2025 5:43 AM 01/23/2025 9:16 PM * Full Code Date Activated Date Inactivated Comments 08/04/2024 6:28 PM 08/06/2024 8:23 PM * Full Code Date Activated Date Inactivated Comments 08/04/2024 6:28 PM 08/04/2024 6:28 PM * Full Code Date Activated Date Inactivated Comments 04/06/2020 8:35 PM 04/10/2020 6:28 PM Care Teams Mail Messenger Relationship Specialty Start Date End Date Arianne Alarcon NP [address] [place] [address] PCP - General 04/24/17 Derrick Walker MD [address] [place] [address] Consulting Physician Plastic Surgery 12/25/19
--- OUTSIDE RECORDS SUMMARY | 2025-02-10 10:42 | XMS_ITS | Encounter Summary ---
Author Organization [facility] Address [address] [place] [address] Phone Care Team Providers Care Coupler Name Role Phone Jack Dukes MD Unavailable [phone] Arianne Alarcon APRN, SHIP WORKER Primary Care Provider [phone] Lito Chatterjee MD Unavailable [phone] Gustabo Falk MD Unavailable [phone] Amrit Goddard MD Unavailable Phan Grant MD Unavailable [phone] Reason for Visit * Reason Comments Medication Refill Encounter Details Date Type Department Care Team (Late st Contact Info) Description 03/22/2022 Refill [facility] - Neurology [facility] #2 [place] [address] Jack Dukes MD [address] [place] [address] Medication Refill Social History Tobacco Use Types Packs/Day Years Used Date Smoking Tobacco: Never Smokeless Tobacco: Never Alcohol Use Standard Drinks/Week Comments No 0 (1 standard drink = 0.6 oz pur e alcohol) Comments No Sex and Gender Information Value Date Recorded Sex Assigned at Not on file Legal Sex Female 2:52 AM TECHNICAL PUBLICATIONS MANAGER Gender Identity Not on file Sexual Orientation Not on file 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 Not on file Not on file Not on file documented as of this encounter Plan of Treatment Upcoming Encounters Date Type Department Care Team (Late st Contact Info) Description 02/17/2025 10:15 AM CDT Telemedicine [facility] #[address] [place] [address] Jack Dukes MD [address] [place] [address] 08/25/2025 2:00 PM TECHNICAL PUBLICATIONS MANAGER Office Visit [facility] Oncology Services [address] [place] [address] Phan Grant MD [address] [place] [address] Discharge Disposition: Discharged to home or Selfcare documented as of this encounter Visit Diagnoses Diagnosis Seizures (HCC) Other convulsions documented in this encounter Care Teams Coupler Relationship Specialty Start Date End Date Arianne Alarcon APRN, CNP [address] [place] [address] PCP - General Family Medicine 08/29/16 Jack Dukes MD [address] [place] [address] Consulting Physician Neurology 08/21/16 Lito Chatterjee MD [address] [place] [address] Consulting Physician General Surgery 04/27/19 Gustabo Falk MD [address] [place] [address] Consulting Physician Radiation Oncology 04/27/19 Amrit Goddard MD [address] [address] Consulting Physician General Surgery 06/08/19 Phan Grant MD [address] [place] [address] Consulting Physician Medical Oncology 02/16/20 documented as of this encounter
--- OUTSIDE RECORDS SUMMARY | 2025-02-10 10:42 | XMS_ITS | Clinical Summary ---
Author Organization [facility] Address [address] [place] [address] Care Team Providers Care Mobile Game Engineer Name Role Phone Unavailable Primary Care [...] Comments Blood Pressure 102/70 06/15/2015 9:24 AM PHOTOCOMPOSING KEYBOARD OPERATOR Pulse 78 06/15/2015 9:24 AM PHOTOCOMPOSING KEYBOARD OPERATOR Temperature - - Respiratory Rate - - Oxygen Saturation - - Inhaled Oxygen Concentration - - Weight 68 kg (150 lb) 06/15/2015 9:24 AM PHOTOCOMPOSING KEYBOARD OPERATOR Height 167.6 cm (5' 6) 06/15/2015 9:24 AM PHOTOCOMPOSING KEYBOARD OPERATOR Body Mass Index 24.21 06/15/2015 9:24 AM PHOTOCOMPOSING KEYBOARD OPERATOR Plan of Treatment Health Maintenance Due Date [...] 5 Years) and At-Risk Patients (6 to 49 Years) Aged Out No longer eligible b ased on patient's age to complete this topic RSV Immunizations Under 20 Months Aged Out No longer eligible based on patient's age to complete this topic
--- OUTSIDE RECORDS SUMMARY | 2025-02-10 10:42 | XMS_ITS | Encounter Summary ---
Author Organization [facility] Address [address] [place] [address] Phone Care Team Providers Care Bakery Worker Conveyor Line Name Role Phone Jack Dukes MD Unavailable [phone] Arianne Alarcon APRN, VP HUMAN RESOURCES Primary Care Provider [phone] Lito Chatterjee MD Unavailable [phone] Gustabo Falk MD Unavailable [phone] Amrit Goddard MD Unavailable Phan Grant MD Unavailable [phone] Reason for Visit * Reason Comments Medication Refill Encounter Details Date Type Department Care Team (Late st Contact Info) Description 01/01/2023 Refill [facility] - Neurology [facility] [address] [place] [address] Jack Dukes MD [address] [place] [address] Medication Refill Social History Tobacco Use Types Packs/Day Years Used Date Smoking Tobacco: Never Smokeless Tobacco: Never Alcohol Use Standard Drinks/Week Comments No 0 (1 standard drink = 0.6 oz pur e alcohol) Comments No Sex and Gender Information Value Date Recorded Sex Assigned at Not on file Legal Sex Female 2:52 AM LAUNCHMAN Gender Identity Not on file Sexual Orientation Not on file 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 Showing future appointments within next 90 days and meeting all other requirements documented in this encounter Plan of Treatment Upcoming Encounters Date Type Department Care Team (Late st Contact Info) Description 02/17/2025 10:15 AM CDT Telemedicine [facility] Neurology [facility] [address] [place] [address] Jack Dukes MD [address] [place] [address] 08/25/2025 2:00 PM LAUNCHMAN Office Visit [facility] Oncology Services [address] [place] [address] Phan Grant MD [address] [place] [address] Discharge Disposition: Discharged to home or Selfcare documented as of this encounter Visit Diagnoses Diagnosis Seizures (HCC) Other convulsions documented in this encounter Care Teams Bakery Worker Conveyor Line Relationship Specialty Start Date End Date Arianne Alarcon APRN, CNP [address] [place] [address] PCP - General Family Medicine 08/29/16 Jack Dukes MD [address] [place] [address] Consulting Physician Neurology 08/21/16 Lito Chatterjee MD [address] [place] [address] Consulting Physician General Surgery 04/27/19 Gustabo Falk MD [address] [place] [address] Consulting Physician Radiation Oncology 04/27/19 Amrit Goddard MD [address] [address] Consulting Physician General Surgery 06/08/19 [place] [address] [place] [address] Consulting Physician Medical Oncology 02/16/20 documented as of this encounter
--- OUTSIDE RECORDS SUMMARY | 2025-02-10 10:42 | XMS_ITS | Encounter Summary ---
Author Organization [facility] Address [address] [place] [address] Phone Care Team Providers Care Clothes Shaker Name Role Phone Jack Dukes MD Unavailable [phone] Arianne Alarcon APRN, FERTILIZER APPLICATOR Primary Care Provider [phone] Lito Chatterjee MD Unavailable [phone] Gustabo Falk MD Unavailable [phone] Amrit Goddard MD Unavailable Phan Grant MD Unavailable [phone] Reason for Visit * Reason Comments Medication Refill Encounter Details Date Type Department Care Team (Late st Contact Info) Description 12/08/2021 Refill [facility] - Neurology [facility] [address] [place] [address] Jack Dukes MD [address] [place] [address] Medication Refill Social History Tobacco Use Types Packs/Day Years Used Date Smoking Tobacco: Never Smokeless Tobacco: Never Alcohol Use Standard Drinks/Week Comments No 0 (1 standard drink = 0.6 oz pur e alcohol) Comments No Sex and Gender Information Value Date Recorded Sex Assigned at Not on file Legal Sex Female 2:52 AM MIRROR SPECIALIST Gender Identity Not on file Sexual Orientation Not on file 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 Not on file Not [...] Description 02/17/2025 10:15 AM CDT Telemedicine [facility] - Neurology [facility] [address] [place] [address] Jack Dukes MD [address] [place] [address] 08/25/2025 2:00 PM MIRROR SPECIALIST Office Visit [facility] Oncology Services [address] [place] [address] Phan Grant MD [address] [place] [address] Discharge Disposition: Discharged to home or Selfcare documented as of this encounter Visit Diagnoses Diagnosis Seizures (HCC) Other convulsions documented in this encounter Care Teams Clothes Shaker Relationship Specialty Start Date End Date Arianne Alarcon APRN, ROMEL [address] [place] [address] PCP - General Family Medicine 08/29/16 Jack Dukes MD [address] [place] [address] Consulting Physician Neurology 08/21/16 Lito Chatterjee MD [address] [place] [address] Consulting Physician General Surgery 04/27/19 Gustabo Falk MD [address] [address] Consulting Physician Radiation Oncology 04/27/19 Amrit Goddard MD [address] [address] Consulting Physician General Surgery 06/08/19 Phan Grant MD [address] [place] [address] Consulting Physician Medical Oncology 02/16/20 documented as of this encounter
--- OUTSIDE RECORDS SUMMARY | 2025-02-10 10:42 | XMS_ITS | Encounter Summary ---
Author Organization [facility] Address [address] [place] [address] Phone Care Team Providers Care Wire Threader Name Role Phone Jack Dukes MD Unavailable [phone] Arianne Alarcon APRN, DELICATESSEN GOODS STOCK CLERK Primary Care Provider [phone] Lito Chatterjee MD Unavailable [phone] Gustabo Falk MD Unavailable [phone] Amrit Goddard MD Unavailable Phan Grant MD Unavailable [phone] Reason for Visit * Reason Comments Medication Refill Encounter Details Date Type Department Care Team (Late st Contact Info) Description 09/05/2022 Refill [facility] - Neurology [facility] [address] [place] [address] Jack Dukes MD [address] [place] [address] Medication Refill Social History Tobacco Use Types Packs/Day Years Used Date Smoking Tobacco: Never Smokeless Tobacco: Never Alcohol Use Standard Drinks/Week Comments No 0 (1 standard drink = 0.6 oz pur e alcohol) Comments No Sex and Gender Information Value Date Recorded Sex Assigned at Not on file Legal Sex Female 2:52 AM INJECTION MOLDING MACHINE TENDER Gender Identity Not on file Sexual Orientation Not on file 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 No / Unsure 08/21/2022 2:16 PM INJECTION MOLDING MACHINE TENDER documented as of this encounter Miscellaneous Notes [...] Provider Dept 08/01/22 Telemedicine Jack Dukes MD [facility] Neurology [facility] Showing recent visits within past 365 days and meeting all other requirements Future Appointments No visits were found meeting these conditions. Showing future appointments within next 90 days and meeting all other requirements CTION MOLDING MACHINE TENDER documented in this encounter Plan of Treatment Upcoming Encounters Date Type Department Care Team (Late st Contact Info) Description 02/17/2025 10:15 AM CDT Telemedicine [facility] - Neurology [facility] [address] [place] [address] Jack Dukes MD [address] [place] [address] 08/25/2025 2:00 PM INJECTION MOLDING MACHINE TENDER Office Visit [facility] Oncology Services [address] [place] [address] Phan Grant MD [address] [place] [address] Discharge Disposition: Discharged to home or Selfcare documented as of this encounter Visit Diagnoses Diagnosis Seizures (HCC) Other convulsions documented in this encounter Care Teams Wire Threader Relationship Specialty Start Date End Date Arianne Alarcon APRN, DELICATESSEN GOODS STOCK CLERK [address] [place] [address] PCP - General Family Medicine 08/29/16 Jack Dukes MD [address] [place] [address] Consulting Physician Neurology 08/21/16 Lito Chatterjee MD [address] [place] [address] Consulting Physician General Surgery 04/27/19 Gustabo Falk MD [address] [place] [address] Consulting Physician Radiation Oncology 04/27/19 Amrit Goddard MD [address] [place] [address] Consulting Physician General Surgery 06/08/19 Phan Grant MD [address] [place], [place] [address] Consulting Physician Medical Oncology 02/16/20 documented as of this encounter
--- OUTSIDE RECORDS SUMMARY | 2025-02-10 10:42 | XMS_ITS | Encounter Summary ---
Author Organization [facility] Address [address] [place] [address] Phone Care Team Providers Care Meat Inspector Name Role Phone Jack Dukes MD Unavailable [phone] Arianne Alarcon APRN, WIND FARM DESIGNER Primary Care Provider [phone] Lito Chatterjee MD Unavailable [phone] Gustabo Falk MD Unavailable [phone] Amrit Goddard MD Unavailable Phan Grant MD Unavailable [phone] Reason for Visit * Reason Comments Medication Refill Encounter Details Date Type Department Care Team (Late st Contact Info) Description 10/29/2024 Refill [facility] - Neurology [facility] #[address] [place] [address] Jack Dukes MD [address] [place] [address] Medication Refill Social History Tobacco Use Types Packs/Day Years Used Date Smoking Tobacco: Never Smokeless Tobacco: Never Alcohol Use Standard Drinks/Week Comments No 0 (1 standard drink = 0.6 oz pur e alcohol) Comments No Sex and Gender Information Value Date Recorded Sex Assigned at Not on file Legal Sex Female 2:52 AM WIND ENERGY SYSTEMS INSTALLER Gender Identity Not on file Sexual Orientation Not on file 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 Not on file Not on file documented as of this encounter Plan of Treatment Upcoming Encounters Date Type Department Care Team (Late st Contact Info) Description 02/17/2025 10:15 AM CDT Telemedicine [facility] #[address] [place] [address] Jack Dukes MD [address] [place] [address] 08/25/2025 2:00 PM WIND ENERGY SYSTEMS INSTALLER Office Visit [facility] Oncology Services [address] [place] [address] Phan Grant MD [address] [place] [address] Discharge Disposition: Discharged to home or Selfcare documented as of this encounter Visit Diagnoses Diagnosis 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) documented in this encounter Care Teams Meat Inspector Relationship Specialty Start Date End Date Arianne Alarcon APRN, CNP [address] [place] [address] PCP - General Family Medicine 08/29/16 Jack Dukes MD [address] [place] [address] Consulting Physician Neurology 08/21/16 Lito Chatterjee MD [address] [place] [address] Consulting Physician General Surgery 04/27/19 Gustabo Falk MD [address] [place] [address] Consulting Physician Radiation Oncology 04/27/19 Amrit Goddard MD [address] [facility] [address] [place] [address] Consulting Physician General Surgery 06/08/19 Phan Grant MD [address] [place] [address] Consulting Physician Medical Oncology 02/16/20 documented as of this encounter
--- OUTSIDE RECORDS SUMMARY | 2025-02-10 10:42 | XMS_ITS | Encounter Summary ---
Author Organization [facility] Address [address] [place] [address] Phone Care Team Providers Care Steel Loader Name Role Phone Jack Dukes MD Unavailable [phone] Arianne Alarcon APRN, BLASTER HELPER Primary Care Provider [phone] Lito Chatterjee MD Unavailable [phone] Gustabo Falk MD Unavailable [phone] Amrit Goddard MD Unavailable Phan Grant MD Unavailable [phone] Reason for Visit * Reason Comments Medication Refill Encounter Details Date Type Department Care Team (Late st Contact Info) Description 11/05/2024 Refill [facility] - Neurology [facility] #[address] [place] [address] Jack Dukes MD [address] [place] [address] Medication Refill Social History Tobacco Use Types Packs/Day Years Used Date Smoking Tobacco: Never Smokeless Tobacco: Never Alcohol Use Standard Drinks/Week Comments No 0 (1 standard drink = 0.6 oz pur e alcohol) Comments No Sex and Gender Information Value Date Recorded Sex Assigned at Not on file Legal Sex Female 2:52 AM MIXER WHIPPED TOPPING Gender Identity Not on file Sexual Orientation Not on file 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 Not on file Not on file documented as of this encounter Plan of Treatment Upcoming Encounters Date Type Department Care Team (Late st Contact Info) Description 02/17/2025 10:15 AM CDT Telemedicine [facility] #[address] [place] [address] Jack Dukes MD [address] [place] [address] 08/25/2025 2:00 PM MIXER WHIPPED TOPPING Office Visit [facility] Oncology Services [address] [place] [address] Phan Grant MD [address] [place] [address] Discharge Disposition: Discharged to home or Selfcare documented as of this encounter Visit Diagnoses Diagnosis 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) documented in this encounter Care Teams Steel Loader Relationship Specialty Start Date End Date Arianne Alarcon APRN, CNP [address] [place] [address] PCP - General Family Medicine 08/29/16 Jack Dukes MD [address] [place] [address] Consulting Physician Neurology 08/21/16 Lito Chatterjee MD [address] [place] [address] Consulting Physician General Surgery 04/27/19 Gustabo Falk MD [address] [place] [address] Consulting Physician Radiation Oncology 04/27/19 Amrit Goddard MD [address] [facility] [address] [place] [address] Consulting Physician General Surgery 06/08/19 Phan Grant MD [address] [place] [address] Consulting Physician Medical Oncology 02/16/20 documented as of this encounter
--- OUTSIDE RECORDS SUMMARY | 2025-02-10 10:42 | XMS_ITS ---
Author Organization [facility] Address [address] [place] [address] Care Team Providers Care Service Agent Name Role Phone Demetrio Nicole Primary Care Provider [facility], Adult ROLLY Unavailabl e [phone] Gisela Patton Unavailable [phone] REASON FOR VISIT WRU Social History Sex Assigned At : Social History Observation Description Sex Assigned At Female Encounters Encounter Location Date Provider Diagnosis [facility] [address] [place] [address] 02/08/2025 Gisela Patton Plan Of Treatment Next Appt Details Provider Name:Kai Anaya , 02/16/2025 11:00:00 AM, [address], [place], [address], Progress Notes * Lu NGUYỄNDOB: [birth year] (49 yo F)Acc No.[id number]:02/08/2025 UNLOCKED PROGRESS NOTE Patient: Ron LV Lu Provider: Prince Patton, MSN, SUPERINTENDENT TRANSMISSION, SAFETY INSTRUCTION POLICE OFFICER-C :1975 A ge:49 Y S ex:Female Date:02/08/2025 Address:[place], [place]-[address] Pcp:Demetrio Nicole Check In:10:39 AM ACCOUNT RESOLUTION ANALYST Subjective: * Chief Complaints: * 1 . WRU MH. * Medical History: Objective: * Vitals: Assessment: Plan: * Treatment: * * Electronic signature of Shanta Patton , [id number] on 02/10/2025 at 10:41 AM CDT Sign off status: Pending * Provider: Prince Patton, [place], SUPERINTENDENT TRANSMISSION, SAFETY INSTRUCTION POLICE OFFICER-C Date: 02/08/2025 Generated for Carroll moya/So/eTsouthsmitting on: 02/10/2025 10:41 AM CDT
--- OUTSIDE RECORDS SUMMARY | 2025-02-10 10:42 | XMS_ITS ---
Author Organization [facility] Address [address] [place] [address] Care Team Providers Care Analysis Internship Name Role Phone Arianne Alarcon NP Primary Care Provider [phone] Derrick Walker MD Unavailable [phone] Active Problems Problem Noted Date Diagnosed Date Alcohol withdrawal syndrome without complication 01/26/2025 Alcohol withdrawal syndrome with complication Alcohol withdrawal syndrome, uncomplicated 08/04 Hx of breast cancer 07/31/2020 Overview (07/31/2020): Added automatically from request for surgery [id number] History of breast cancer 02/10/2020 Overview (02/10/2020): Added automatically from request for surgery [id number] Anxiety 02/08/2020 Sensory neuropathy 02/08/2020 Nodule of [...]
--- OUTSIDE RECORDS SUMMARY | 2025-02-10 10:42 | XMS_ITS | Patient Health Record ---
Author Organization [facility] Address [address] [place] [address] Care Team Providers Care Bottle Feeder Name Role Phone Corey Demetrio Primary Care Provider [facility], Adult ROLLY Unavailabl e [phone] Habgerardo, Arif Unavailable [phone] Pavithra Castillo Unavailable [phone] Edinson Miller Unavailable [phone] Gisela Patton Unavailable [phone] Natalie Martinez Unavailable [phone] Ayesha Hill Unavailable [phone] Edinson Garay Unavailable [phone] Allergies Allergen (clinical drug ingredient) Drug/Non Drug Allergy documented on EMR Reaction Allergy Type Onset Date Status PENICILLIN Unknown Drug Allergy Active SULFA Unknown Drug Allergy Active Results Component Value Reference Range Notes Breathalyzer Reviewed date:02/09/2025 01:55:40 PM Interpretation: Performing Lab: Notes/Report: ANGELITO 0.000 14 Panel Urine Drug Screen Reviewed date:02/08/2025 01:37:51 PM Interpretation: Performing Lab: Notes/Report: THC neg FLORENCE neg MOP (OPI) neg AMP neg MET POS BAR neg BZO POS MDMA neg MTD neg OXY neg PCP neg BUP POS TCA neg FTY neg Test, Urine Reviewed date:02/08/2025 02:21:29 PM Interpretation: Performing Lab: Notes/Report: Test, Urine negative Negative - Negative Breathalyzer Reviewed date:01/28/2025 03:03:13 PM Interpretation: Performing Lab: Notes/Report: ANGELITO 0.093 14 Panel Urine Drug Screen Reviewed date:01/28/2025 03:04:29 PM Interpretation: Performing Lab: Notes/Report: THC neg FLORENCE POS MOP (OPI) neg AMP neg MET neg BAR neg BZO POS MDMA neg MTD neg OXY neg PCP neg BUP neg TCA neg FTY neg Reason For Referral No Information Medications Medication SIG (Take, Route, Frequency, Duration) Notes Start Date End Date Status LaMICtal 100 MG 2 tablets Orally Twi ce a day Active Gabapentin 300 MG 1 capsule Orally Onc e a day Active Wellbutrin SR 100 MG 1 tablet in the mor [place] Orally Once a day Active hydrOXYzine Pamoate 25 MG 1-2 capsules Orally every 4 hours as needed for anxiety, agitation, or inability to sleep. Do not give within 4 hours of diphenhydramine.; Duration: 30 days 02/08/2025 Active ZyrTEC 10 MG 1 tablet Orally Once a day Active Lexapro 20 MG 1 tablet Orally Once a day; Duration: 30 days Active Melatonin 5 MG 1 tablet at bedtime as needed Orally Once a day; Duration: 30 days 02/08/2025 Active Lexapro 20 MG 1 tablet Orally Once a day Active Multi Vitamin - 1 tablet Orally Once a day; Duration: 30 days 02/08/2025 Active Omeprazole 20 MG 1 capsule 1/2 to 1 h our before morning meal Orally Once a day Active Vivitrol 380 MG 4 ml Intramuscular monthly; Duration: 30 day(s) Not-Taking Zolpidem Tartrate 10 MG 1 tablet at bedt katelynn as needed Orally Once a day Active Vimpat 200 MG 1 tablet Orally Once a day Active B12 Active Acamprosate Calcium 333 MG 2 tablets Orally Three times a day; Duration: 30 day(s) 04/08/2023 Not-Taking traZODone HCl 100 MG 1 tablet at bedtime Orally Once a day; Duration: 30 days Not-Taking LaMICtal 100 MG 1 tablet Orally twic e daily; Duration: 30 day(s) Not-Taking Social History Tobacco Use: Social History Observation Description Date Details (start date - stop date) Never Smoker NA - NA Sex Assigned At : Social History Observation Description Sex Assigned At Female Dont use, Tobacco Use/Smoking Question Answer Notes Are you a nonsmoker PRAPARE Question Answer Notes Date Completed/Updated: 02/08/2025 What is your current housing situation? I have h ousing Are you worried about losing your housing? No What is the highest level of school that you have finished? More than high school What is your current work situation? Unemployed and seeking work In the past year, have you o [...] phone, visiting friends or family, going to congregation or club meetings) More than 5 times a week How stressed are you? Stress is when someone feels tense, nervous, anxious, or can\t sleep at night because their mind is troubled Quite a bit In the past year have you sp ent more than 2 nights in a row in a nursing home, correction, nursing home center, or juvenile correctional facility? No Are you a refugee? I choose not to answer this q uestion What country are you from? I choose not to answe r this question Do you feel physically and e motionally safe where you currently live? Yes In the past year, have you b een afraid of your partner or ex-partner? No PRAPARE Score: 5 Enabling Services Provided? Yes Please specify Case Management Follow-up Tobacco Control (Standard) Question Answer Notes Tobacco use: Nonsmoker Problems Problem Type SNOMED Code ICD Code Onset Dates Problem Status W/U Status Risk Notes Problem Major depressive disorder (954468811) Major depressive disorder (F32.9) Active confirmed Problem Psychoactive substance dependence (5236260) Chemical dependency (F19.20) Active confirmed Problem Overweight (847222743) Over weight (E66.3) Active confirmed Problem Opioid dependence (90516164) Opiate dependence (F11.20) Active confirmed Problem Alcohol use disorder (9264967987) Alcohol use disorder (F10.99) Active confirmed Problem Substance dependence (8440915893) Substance dependence (F19.20) Active confirmed Problem Chemical abuse (F19.10) Active confirmed Problem Alcohol abuse (81035891) AA (alcohol abuse) (F10.10) Active confirmed Problem Adult health examination (587973294) Adult general medical exam (Z00.00) Active confirmed Problem Intoxication by drug, with unspecified complication (F19.929) Active confirmed Vital Signs Heart Rate 86 /min 02/08/2025 Temperature 98.0 degrees Fahrenheit 02/08/2025 Respiratory Rate 18 /min 02/08/2025 Blood pressure diastolic 60 mm Hg 02/08/2025 Oximetry 95 % 02/08/2025 Height 65 in 02/08/2025 Blood pressure systolic 108 mm Hg 02/08/2025 Weight 172.0 lbs 02/08/2025 BMI 28.62 kg/m2 02/08/2025 Encounters Encounter Location Date Provider Diagnosis [address] [address] 02/08/2025 Ayesha GASPAR (alcohol abuse) F10.10 [facility] [place] [address] 02/10/2025 Edinson Garay [place] [address] [place] [address] 01/20/2025 Edinson Garay Alcohol use disorder F10.99 ; Adult general medical exam Z00.00 and Over weight E66.3 [address] [address] [place] [address] 01/25/2025 Gisela Patton [facility] [place] [address] 01/28/2025 Edinson Garay Intoxication by drug, with unspecified complication F19.929 [address] [address] [place] [address] 02/08/2025 Pavithra Castillo Routine general medical examination at a health care facility Z00.00 and Over weight E66.[address] [place] [address] 03/03/2024 Edinsno Miller [address] [place] [address] 12/10/2024 Arif Habib Assessments Encounter Date Diagnosis (ICD Code) Assessment Notes Treatment Notes Treatment Clinical Notes Section Notes 01/20/2025 Alcohol use disorder (ICD-10 - F10.99) 01/20/2025 Adult general medical exam (ICD-10 - Z00.00) 01/28/2025 Intoxication by drug, with unspecified complication (ICD-10 - F19.929) Staff alerted me that the patient came back intoxicated and ordered a breathalyzer and UDS to be completed. Breathalyzer was 0.093 and UDS showed cocaine. Patient will not be admitted at this time. I discussed the case with Ro Weiss and she will talk with the patient about further options. 02/08/2025 Routine general medical examination at a health care facility (ICD-10 - Z00.00) Admit to the Mental Health/Crisis Residential Unit and initiate standing/protocol orders: The following PRN medications may be self-administered by patients under the supervision of approved staff or administered by nursing staff: Ibuprofen 200mg, 2-4 tablets by mouth (with food) every 6 hours as needed for pain (unless on lithium). (NOTE: Ibuprofen and acetaminophen may be given together, but alternating is recommended for continuous pain relief. Guaifenesin 400 mg, 1 tablet by mouth every four hours as needed for cough and chest congestion (take with large glass of water). Loratadine 10 mg, 1 tablet by mouth daily as needed for allergies, watery itchy eyes, or sinus drainage. Throat Lozenges, up to 4 tablets by mouth every three to four hours as needed for sore throat. Antacid tablets, 1-2 tablets by mouth every one to two hours as needed for indigestion or heart burn. If the client prefers liquid, could use: Liquid Antacid : 1 ounce by mouth up to four times daily as needed for indigestion or heartburn Omeprazole 20mg, 1 capsule by mouth once daily for 14 days for frequent heartburn (frequent heartburn is more than 2 episodes per week). Do not exceed 14 days. Do not give to client already taking a proton-pump inhibitor: esomeprazole (Nexium), lansoprazole (Prevacid), pantoprazole (Protonix), rabeprazole (Aciphex), dexlansoprazole (Dexilant) Zofran ODT disintegrating (under the tongue) 4 mg, 1-2 tablets every 8 hours as needed for nausea/vomiting. Milk of Magnesia (MOM): 1 ounce (30 milliliters) by mouth every day as needed for constipation. OR Miralax: Stir and fully dissolve 17 grams (1 packet or 1 capful to measured line) in any 4 to 8 ounces of beverage then drink once daily for constipation. Do not use for more than 7 days. OR Docusate 100 mg, 1 capsule twice daily as needed for constipation Hydrocortisone 1% Cream, apply topically (to the skin) to the affected area up to three times daily as needed for itching or inflammation (avoid eyes and genitals). 2% Antifungal Cream, apply topically (to the skin) as directed as needed to affected areas for athlete's foot or jock itch. Triple Antibiotic Ointment, apply topically (to the skin) up to three times daily as needed for minor cuts and scrapes. Carmex or Chapstick, apply topically (to the skin) as needed for chapped lips and skin. Orajel, apply to affected areas as needed for mouth or tooth pain. Lubricating Eye Drops, instill 1-2 drops to the affected eye(s) as needed for dry/irritated eye(s). Hemorrhoid medications, apply to affected area according to directions as needed for hemorrhoid discomfort and itch. Nix (Permethrin 1%) cream 2 ounces, apply topically (to the skin) as directed as needed for head lice. Sunscreen 30 SPF, Apply to exposed skin prior to exposure to sun. The following PRN medications must be approved by nursing staff before self-administration by patients: Diphenhydramine 25 mg, 2 tablets by mouth every 4 hours as needed for allergic reaction or itchy rash. Caution: Do not use hydroxyzine within 4 hours of diphenhydramine and vice versa. Loperamide 2 mg capsules, may give two capsules by mouth for the initial dose, followed by one capsule up to 3 times a day as needed for diarrhea. Acetaminophen 500 mg, 1 - 2 tablets by mouth every six hours as needed for pain. (NOTE: Ibuprofen and acetaminophen may be given together, but alternating is recommended for continuous pain relief). Oxygen-May administer oxygen 2L/min via nasal cannula if O2 saturation is less than 92%, AND client complains of shortness of breath. Target O2 saturation is 94-98%. Caution: Remember too much oxygen can be detrimental to a client with COPD. Oxygen is a drug and should be delivered by trained staff only. Nurses may remove superficial splinters and sutures from skin lacerations. May apply gauze or bandages to any weeping wounds. Contact nursing if there is pus, a foul odor, increased pain/redness/swelli ng, or if soaking through bandages. 02/08/2025 AA (alcohol abuse) (ICD-10 - F10.10) 02/08/2025 Over weight (ICD-10 - E66.3) 01/20/2025 Over weight (ICD-10 - E66.3) 02/08/2025 Other Clinician met w ith client to assess needs for residential services. Clinician gathered information regarding historical presentation of mental health and substance use symptoms including withdrawal, HIV Risk assessment, psychiatric hospitalization history and presenting concern. Clinician conducted PHQ9 and CSSRS assessments as well as social drivers of health screening for the purposes of identifying additional service needs. 01/20/2025 Other The patient gav e me her medical history and her ETOH use history. With the known facts from this and her recent seizure within 6 months, last drink this AM, and likelihood of detox on the unit I have made the decision to recommend she go to [facility] to detox while under close supervision. The patient is very agreeable and understands. I have called ahead to let them know she is on her way to them and to expect her. They are aware at the facility and the patient has been reassured. Plan Of Treatment Pending Test Test Name Order Date Drug Analysis, Unknown, Qual 09/27/2015 Buprenorphine 09/15/2015 Future Test Test Name Order Date HIV Screen *HIV 1, 2 Ab, p24 Ag ([id number]) 02/08/2025 CBC With Differential/Platelet* 02/09/20 25 CMP 14 Comprehensive Metabolic Panel* QuantiFERON-TB Gold Plus ([id number]) 2024 Next Appt Details Provider Name:Kai alarcon, 02/16/2025 11:00:00 AM, [address], [place], [address], Insurance Providers Payer Name Payer Address Payer Phone Subscriber Number Group Number Insured Name Patient Relationship to Insured Coverage Start Date Coverage End Date [employer] [address] [place] [address] [id number] Lu Christy Self - patient is the insured 5 [employer] [address] [place] [address] [id number] Lu Christy Self - patient is the insured 5 Medications Administered Medication Instructions Date of Administration Dosage Notes Vivitrol 02/21/2016 380 mg exp December 2017 Manufact by [employer] theresa well. Sample used Vivitrol 03/20/2016 380 mg Exp-01/03/2018 [employer] Grade [employer] Client tolerated injection well. Vivitrol 04/17/2016 380 mg Exp December 2017 Manufact by [employer] theresa well. Vivitrol 05/29/2016 380 mg Exp 10/2018 Man ufact by [employer] theresa well. Medical (General) History Medical History History ICD Code seizures from head trauma 2007 gastric ulcer kidney stones 2006 UTI depression alcohol use disorder Surgical History Surgery Date(Month/Year) appendectomy 1993 cystectomy 2001 & 2002 kidney stents 2005 Double mastectomy 2021 Hospitalization History Reason Date(Month/Year) childbirth Feb 2017 seizure 2014 kidney stent placement 2005
--- OUTSIDE RECORDS SUMMARY | 2025-02-10 10:42 | XMS_ITS ---
Author Organization [facility] Address [address] [place] [address] Care Team Providers Care Photographer Scientific Name Role Phone Demetrio Nicole Primary Care Provider [facility], Adult ROLLY Unavailabl e [phone] Ayesha Hill Unavailable REASON FOR VISIT aT Social History Tobacco Use: Social History Observation [...] phone, visiting friends or family, going to caodaism or club meetings) More than 5 times a week How stressed are you? Stress is when someone feels tense, nervous, anxious, or can\t sleep at night because their mind is troubled Quite a bit In the past year have you sp ent more than 2 nights in a row in a senior living, fdc, skilled nursing center, or juvenile correctional facility? No Are [...] Problem Status W/U Status Risk Notes Problem AA (alcohol abuse) (F10.10) Active confirmed Encounters Encounter Location Date Provider Diagnosis [address] [address] 02/08/2025 Ayesha Hill AA (alcohol abuse) F10.10 Assessments Encounter Date Diagnosis (ICD Code) Assessment Notes Treatment Notes Treatment Clinical Notes Section Notes 02/08/2025 AA (alcohol abuse) (ICD-10 - F10.10) 02/08/2025 Other Clinician met w ith client to assess needs for residential services. Clinician gathered information regarding historical presentation of mental health and substance use symptoms including withdrawal, HIV Risk assessment, psychiatric hospitalization history and presenting concern. Clinician conducted PHQ9 and CSSRS assessments as well as social drivers of health screening for the purposes of identifying additional service needs. Plan Of Treatment Treatment Notes Assessment Notes Other Clinician met with paola oh to assess needs for residential services. Clinician gathered information regarding historical presentation of mental health and substance use symptoms including withdrawal, HIV Risk assessment, psychiatric hospitalization history and presenting concern. Clinician conducted PHQ9 and CSSRS assessments as well as social drivers of health screening for the purposes of identifying additional service needs. Next Appt Details Follow Up: prn, Reason: Provider Name:Kai alarcon, 02/16/2025 11:00:00 AM, [address], [place], [address], Progress Notes * Snehal MORILLO: 7 (49 yo F)Acc No.[id number]:02/08/2025 UNLOCKED PROGRESS NOTE Patient: Lu WALKER Provider: Walter Hill :1975 A ge:49 Y S ex:Female Date:02/08/2025 Address:[facility] Pcp:Demetrio Nicole Subjective: * Chief Complaints: * 1 . aTBC. * HPI: P sychiatric Assessment - Current Symptoms: Primary concern today A dmitting today for [facility] 28 day program. O verview of Mental Health Symptoms D epression, been on medication for it since 22 y/o. H istory of Psychiatric Hospitalizations n one reported at this time. H istory of Psychiatric and Behavioral Health Treatment D r. Habib for mental health concerns when in drug court with [employer]. S ubstance Use: Current Use Patterns S tarted heavily drinking when lost her job about 18 months ago and been drinking all day every day. More recently using cocaine. . ?Primary Substance Used A lcohol. 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 H x of Withdrawal T rembles, irritability, cold sweats . H IV Risk Assessment Screening: Required for Residential Admits. A ssessment of Social Determinants of Health::: Has A PRAPARE Been Completed In The Past Year? H as a PRAPARE Been Completed In The Past Year? Y es, W as It Completed Today Using SmartG-CON? Y es.? a TBC For Substance Use Services: Who Is Your Primary Care Provider? D o You Have A Primary Care Provider? Y es Nidia Mills ate of last physical exam 0 -2024. D o You Have A Psychiatric Provider? D o You Have A Psychiatric Provider? N o Interested in professional assessments for mental health concerns.. D o You Have Any Other Professional Supports? D o You Have Any Other Professional Supports N o. C onsent Forms Completed C onsent Forms?None Needed at this time. D epression Screening: PHQ-9 L ittle interest or pleasure in doing things N ot at all, F eeling down, depressed, or hopeless N ot at all, T rouble falling or staying asleep, or sleeping too much N ot at all, F eeling tired or having little energy N ot at all, P oor appetite or overeating N ot at all, F eeling bad about yourself or that you are a failure, or have let yourself or your family down N ot at all, T rouble concentrating on things, such as reading the newspaper or watching television N ot at all, M oving or speaking so slowly that other people could have noticed; or the opposite, being so fidgety or restless that you have been moving around a lot more than usual N ot at all, T houghts that you would be better off or of hurting yourself in some way N ot at all, T otal Score 0 . I ntervention D epression Screening Findings P ositive, F ollow-Up for Depression Prince munson is admitted to a [facility] unit where their mental health is monitored - unit nursing staff have access to this encounter note. * Medical History: * Social History: S ocial Determinants: Prince Jacob ate Completed/Updated: 0 02/08/2025, W hat is your current housing situation? I have housing, A re you worried about losing your housing? N o, W hat is the highest level of school that you have finished? M ore than high school, W hat is your current work situation? U nemployed and seeking work, I n the past year, have you or any family members you live with been unable to get any of the following when it was really needed? Check all that apply U tilities, H as lack of transportation kept you from medical appointments, meetings, work or from getting things needed for daily living? N o, H ow often do you see or talk to people that you care about and feel close to? (For example: talking to friends on the phone, visiting friends or family, going to caodaism or club meetings) M ore than 5 times a week, H ow stressed are you? Stress is when someone feels tense, nervous, anxious, or can\t sleep at night because their mind is troubled Q uite a bit, I n the past year have you spent more than 2 nights in a row in a senior living, fdc, skilled nursing center, or juvenile correctional facility? N o, A re you a refugee? I choose not to answer this question, W hat country are you from? I choose not to answer this question, D o you feel physically and emotionally safe where you currently live? Y es, I n the past year, have you been afraid of your partner or ex-partner? N o,?PRAPARE Score: 5 , E nabling Services Provided? Y es, P lease specify C ase Management Follow-up. T obacco Use: D ont use, Tobacco Use/Smoking A re you a n onsmoker. T obacco Control (Standard)?Tobacco use: N onsmoker. Objective: * Vitals: * Examination: M ental Status Exam: ATTENTION AND CONCENTRATION N o deficits. APPEARANCE A ppropriate. ATTITUDE AND BEHAVIOR C ooperative. EYE CONTACT G ood. AFFECT C ongruent with reported mood. MOOD D own. INSIGHT F air. JUDGMENT G ood. G eneral Examination: E xplanation of presentation/need (staff to free text). Assessment: * Assessment: 1. A A (alcohol abuse) - F10.10 (Primary) Plan: * Treatment: * Procedure Codes: 9 0791 PSYCH DIAGNOSTIC EVALUATION, Modifiers: AJ , T1016 Case management, CHS08 aT Service, CHS12 Housing Assistance, CHS13 Referring to Spice Mixer * Follow Up: p rn * * Electronic signature of Margie Hill on 02/10/2025 at 10:42 AM CDT Sign off status: Pending * Provider: Walter Hill Date: 0 02/08/2025 Generated for Carroll moya/So/Emil on: 0 02/10/2025 10:42 AM CDT History and Physical Notes * HPI (History of Present Illness) Category Sub-Category Detail Notes Category Not es Depression Screening PHQ-9 Little inte rest or pleasure in doing things: Not at all Feeling down, depressed, or hopeless: No t at all Trouble falling or staying asleep, or sl eeping too much: Not at all Feeling tired or having little energy: N ot at all Poor appetite or overeating: Not at all Feeling bad about yourself o r that you are a failure, or have let yourself or your family down: Not at all Trouble concentrating on thi ngs, such as reading the newspaper or watching television: Not at all Moving or speaking so slowly that other people could have noticed; or the opposite, being so fidgety or restless that you have been moving around a lot more than usual: Not at all Thoughts that you would be b omar off or of hurting yourself in some way: Not at all Total Score: 0 Intervention Depression Screening Findings: P ositive Follow-Up for Depression: Raj hinkle is admitted to a [facility] unit where their mental health is monitored - unit nursing staff have access to this encounter note Psychiatric Assessment - Current Symptoms Primary concern today Admitting today for [facility] 28 day program Overview of Mental Health Symptoms Angel luo, been on medication for it since 22 y/o History of Psychiatric Hospitalizations none reported at this time History of Psychiatric and B ehavioral Health Treatment Dr. 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 More recently using cocaine. HIV Risk Assessment Screening Required for Residential Admits Assessment of Social Determinants of Health:: Has A PRAPARE Been Completed In The Past Year? Has a PRAPARE Been Completed In The Past Year?: Yes Was It Completed Today Using SmartForm?: Yes [facility] Who Is Your Primary Care Provider? Do You Have A Primary Care Provider?: Yes Dr. Ireland Date of last physical exam: Do You Have A Psychiatric Provider? Do You Have A Psychiatric Provider?: No Interested in professional assessments for mental health concerns. Do You Have Any Other Professional Supports? Do You Have Any Other Professional Supports: No Consent Forms Completed Consent Forms: N one Needed at this time Examination Category Sub-Category Detail Notes Category Not es General Examination Explanat ion of presentation/need (staff to free text) Mental Status Exam ATTENTION AND CONCENTRATION No deficits APPEARANCE Appropriate ATTITUDE AND BEHAVIOR Cooperative EYE CONTACT Good AFFECT Congruent with repor geri mood MOOD Down INSIGHT Fair JUDGMENT Good
--- OUTSIDE RECORDS SUMMARY | 2025-02-10 10:42 | XMS_ITS | Encounter Summary ---
Author Organization [facility] Address [address] [place] [address] Phone Care Team Providers Care Mechanical Assembly Name Role Phone Jack Dukes MD Unavailable [phone] Arianne Alarcon APRN, OPERATIONS REPRESENTATIVE Primary Care Provider [phone] Lito Chatterjee MD Unavailable [phone] Gustabo Falk MD Unavailable [phone] Amrit Goddard MD Unavailable Phan Grant MD Unavailable [phone] Reason for Visit * Reason Comments Medication Refill Encounter Details Date Type Department Care Team (Late st Contact Info) Description 02/22/2020 Refill [facility] - Neurology - [place] [address] [place] [address] Jack Dukes MD [address] [place] [address] Medication Refill Social History Tobacco Use Types Packs/Day Years Used Date Smoking Tobacco: Never Smokeless Tobacco: Never Alcohol Use Standard Drinks/Week Comments No 0 (1 standard drink = 0.6 oz pur e alcohol) Comments No Sex and Gender Information Value Date Recorded Sex Assigned at Not on file Legal Sex Female 2:52 AM PRINCIPAL SECURITY ARCHITECT Gender Identity Not on file Sexual Orientation Not on file 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 Date 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 End 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 Not on file Not on file [...] 02/17/2025 10:15 AM CDT Telemedicine [facility] Neurology [facility] [address] [place] [address] Jack Dukes MD [address] [place] [address] 08/25/2025 2:00 PM PRINCIPAL SECURITY ARCHITECT Office Visit [facility] Oncology Services [address] [place] [address] Phan Grant MD [address] [place] [address] Discharge Disposition: Discharged to home or Selfcare documented as of this encounter Visit Diagnoses Diagnosis 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) documented in this encounter Care Teams Mechanical Assembly Relationship Specialty Start Date End Date Arianne Alarcon APRN, ROMEL [address] [place], [place] [id number] PCP - General Family Medicine 08/29/16 Jack Dukes MD [address] [place] [address] Consulting Physician Neurology 08/21/16 Lito Chatterjee MD [address] [place] [address] Consulting Physician General Surgery 04/27/19 Gustabo Falk MD [address] [address] Consulting Physician Radiation Oncology 04/27/19 Amrit Goddard MD [address] [address] Consulting Physician General Surgery 06/08/19 Phan Grant MD [address] [place] [address] Consulting Physician Medical Oncology 02/16/20 documented as of this encounter
--- OUTSIDE RECORDS SUMMARY | 2025-02-10 10:42 | XMS_ITS | Encounter Summary ---
Author Organization [facility] Address [address] [place] [address] Phone Care Team Providers Care Drawing Kiln Operator Name Role Phone Jack Dukes MD Unavailable [phone] Arianne Alarcon APRN, 3RD GRADE READING TEACHER Primary Care Provider [phone] Lito Chatterjee MD Unavailable [phone] Gustabo Falk MD Unavailable [phone] Amrit Goddard MD Unavailable Phan Grant MD Unavailable [phone] Reason for Visit * Reason Comments Medication Refill Encounter Details Date Type Department Care Team (Late st Contact Info) Description 04/25/[address] 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 Not on file Not on file Not on file documented as of this encounter Plan of Treatment Upcoming Encounters Date Type Department Care Team (Late st Contact Info) Description 02/17/2025 10:15 AM CDT Telemedicine [facility] [address] [place] [address] Jack Dukes MD [address] [place] [address] 08/25/2025 2:00 PM FIELD SECRETARY Office Visit [facility] Oncology Services [address] [place] [address] Phan Grant MD [address] [place] [address] Discharge Disposition: Discharged to home or Selfcare documented as of this encounter Visit Diagnoses Diagnosis Seizures (HCC) Other convulsions documented in this encounter Care Teams Drawing Kiln Operator Relationship Specialty Start Date End Date Arianne Alarcon APRN, CNP [address] [place] [address] PCP - General Family Medicine 08/29/16 Jack Dukes MD [address] [place] [address] Consulting Physician Neurology 08/21/16 Lito Chatterjee MD [address] [place] [address] Consulting Physician General Surgery 04/27/19 Gustabo Falk MD [address] [place] [address] Consulting Physician Radiation Oncology 04/27/19 Amrit Goddard MD [address] [address] Consulting Physician General Surgery 06/08/19 Phan Grant MD [address] [place] [address] Consulting Physician Medical Oncology 02/16/20 documented as of this encounter
--- OUTSIDE RECORDS SUMMARY | 2025-02-10 10:42 | XMS_ITS | Clinical Summary ---
Author Organization [facility] Address [address] [place] [address] Phone Care Team Providers Care Applications Specialist Name Role Phone Jack Dukes MD Unavailable [phone] Arianne Alarcon APRN, NURSING TECHN Primary Care Provider [phone] Lito Chatterjee MD Unavailable [phone] Gustabo Falk MD Unavailable [phone] Amrit Goddard MD Unavailable Phan Grant MD Unavailable [phone] Allergies Active Allergy Reactions Criticality Noted Date Comments Penicillins Swelling High MOUTH; VAGINAL Sulfa Antibiotics Swelling High VAGINAL Medications * This document contains information received from the source organization and may not represent a complete record from that organization. escitalopram (LEXAPRO) 20 MG Tablet Take 20 [...] hyclate (VIBRA-TABS) 100 MG Tablet 4 Active buPROPion SR (WELLBUTRIN SR) 150 MG TABLET SR 12 HR Take 1 Tablet by mouth daily. Active lamoTRIgine (LaMICtal) 200 MG TabletIndications :Seizures (HCC) TAKE ONE (1) TAB BY MOUTH TWO (2) TIMES DAILY. 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 90 Capsule 3 5 Active Active Problems Problem Noted Date [...] from 04/27/2019:Stage IIB(cT2, cN0, cM0, G3, ER+, GA-, HER2-) - Signed by Gustabo Falk MD on 04/28/2019 Pathologic stage from 04/27/2019:Stage IIB(pT2, pN1mi(sn), cM0, G3, ER+, GA-, HER2-) - Unsigned Premenopausal patient 04/22/2019 Seizures [...] with the results of the test. Encounters * This document contains information received from the source organization and may not represent a complete record from that organization. 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 Not on file Not on file Not on file Last Filed Vital Signs Vital Sign Reading Time Taken Comments Blood Pressure 131/87 08/26/2024 1:50 PM REMOTE ENCODING OPERATIONS SUPERVISOR Pulse 92 08/26/2024 1:50 PM REMOTE ENCODING OPERATIONS SUPERVISOR Temperature 36.6 C (97.9 F) 08/26/2024 1:50 PM REMOTE ENCODING OPERATIONS SUPERVISOR Respiratory Rate 18 08/26/2024 1:50 PM REMOTE ENCODING OPERATIONS SUPERVISOR Oxygen Saturation 98% 08/26/2024 1:50 PM REMOTE ENCODING OPERATIONS SUPERVISOR Inhaled Oxygen Concentration - - Weight 67.3 kg (148 lb 4.8 oz) 08/26/2024 1:50 P M REMOTE ENCODING OPERATIONS SUPERVISOR Height 165.1 cm (5' 5) 07/09/2024 8:05 PM REMOTE ENCODING OPERATIONS SUPERVISOR Body Mass Index 24.68 07/09/2024 8:05 PM REMOTE ENCODING OPERATIONS SUPERVISOR Plan of Treatment Upcoming Encounters Date Type Department Care Team (Late st Contact Info) Description 02/17/2025 10:15 AM CDT Telemedicine [facility] Neurology [facility] [address] [place] [address] Jack Dukes MD [address] [place] [address] 08/25/2025 2:00 PM REMOTE ENCODING OPERATIONS SUPERVISOR Office Visit [facility] Oncology Services [address] [place] [address] Phan Grant MD [address] [place] [address] Discharge Disposition: Discharged to home or Selfcare Health Maintenance Due Date Last Done Comments SARS-COV-2 Immunization (#1) 1981 Hepatitis B Immunization (1 of 3 - 19+ 3-dose series) 1995 Pneumococcal Immunization Combined (1 of 2 - PCV) 1995 Pap Smear 1997 Cervical Cancer Screening (CCS) 2006 HPV/Cotest 2006 Cologuard 2021 Colonoscopy 2021 Colorectal Cancer Screening 2021 Immunochemical Fecal Occult Blood 2021 Influenza Immunization (#1) 03/07/202508/08, 06/27/2021, 04/07/2020, Additional history exists Respiratory Syncytial Virus (RSV) Immunization (Adult) (1 - 1-dose 75+ series) 2051 DTaP/Tdap/Td Immunization Discontinued 2021, 02/19/2011, 02/16/2009 TdaP Immunization Completed 03/07/2022 Discussion re Starting/Frequency of Mammograms Completed 01/22/2024, 10/12/2019, 03/26/2019, Additional history exists Mammogram Unilateral Discontinued 01/22/2024, 10/12/2019, 03/26/2019, Additional history exists Hepatitis C Virus (HCV) Screening Completed 10/29/2024 Human Papillomavirus (HPV) Immunization Aged Out No longer eligible based on patient's age to complete this topic Meningococcal Immunization (ACWY) Aged Out No longer eligible based on patient's age to complete this topic Rotavirus Immunization Aged Out No lo nger eligible based on patient's age to complete this topic Medical Devices Implanted Type Area Aix Architect Device Identifier Shelf Expiration Date Model / Serial / Lot Port Implantable Infusion Powerport Mri Airguard Chronoflex 8fr 1 Lumen Attachable Cath Intermediate - [id number] Implanted:Qty: 1 on 05/11/2019 by Lito Chatterjee MD at [facility] IMPLANT Left: Chest BARD ACCESS SYSTEMS 11/03/2020 [id number] / [id number] / [id number] Procedures Procedure Name Priority Date/Time Associated Diagnosis Comments HEPATITIS PANEL ACUTE (AHP) 10/29/2024 12:00 AM CDT DENNIS DIAG RIGHT UNILATERAL DIGITAL W CAD W MARY ANNE Routine 10/12/2019 2:49 PM CDT History of breast cancer from Last 3 Months or Most Recently Relevant to Health Maintenance Results * HEPATITIS PANEL ACUTE (AHP) (10/29/2024 12:00 AM CDT) 10/29/2024 us Provider Scan HEMATOLOGY ORDERABLES Final Resu lt SCAN * DENNIS DIAG RIGHT UNILATERAL DIGITAL W [...] copy. Current study was also evaluated with ICAD version 7.2. CLINICAL: Diagnostic study. 6 month follow up post lumpectomy right breast. Patient states feeling a palpable lump that is marked on imaging for approximately 3 months. COMPARISONS: Comparison is made to exam dated: 03/15/[address] [facility]. BREAST TISSUE:There are scattered fibroglandular densities [...] signed by: Mya Patel M.D. ll/:10/12/2019 15:03:41 Heavy Equipment Field Mechanic: Lisa Eaton)(Walter), [facility] letter sent: Birad 3 Followup Reading location: [facility] OVERALL STUDY BIRADS: 3 Probably benign [...] copy. Current study was also evaluated with ICAD version 7.2. CLINICAL: Diagnostic study. 6 month follow up post lumpectomy right breast. Patient states feeling a palpable lump that is marked on imaging for approximately 3 months. COMPARISONS: Comparison is made to exam dated: 03/15/[address] [facility]. BREAST TISSUE:There are scattered fibroglandular densities [...] signed by: Mya Patel M.D. ll/:10/12/2019 15:03:41 Heavy Equipment Field Mechanic: Lisa Eaton)(M), [facility] letter sent: Birad 3 Followup Reading location: [facility] OVERALL STUDY BIRADS: 3 Probably benign us Lito Chatterjee MD IMG MAMMO ORDERABLES Final Result from Last 3 Months or Most Recently Relevant to Health Maintenance Insurance [place] Advance Directives Documents on File Type Date Recorded Patient Cinder Crew Worker Expl anation Power of Etl Architect for Health Care 05/27/2019 11:53 AM POA-HC 05/27/19 Advance Care Planning Discussion 05/27/2019 11:33 AM ACP DISCUSSION RECOR D 05/27/19 Care Teams Applications Specialist Relationship Specialty Start Date End Date Arianne Alarcon APRN, CNP [address] [place] [address] PCP - General Family Medicine 08/29/16 Jack Dukes MD [address] [place] [address] Consulting Physician Neurology 08/21/16 Lito Chatterjee MD [address] [place] [address] Consulting Physician General Surgery 04/27/19 Gustabo Falk MD [address] [place] [address] Consulting Physician Radiation Oncology 04/27/19 Amrit Goddard MD [address] [address] Consulting Physician General Surgery 06/08/19 Phan Grant MD [address] [place] [address] Consulting Physician Medical Oncology 02/16/20
--- OUTSIDE RECORDS SUMMARY | 2025-02-10 10:42 | XMS_ITS | Clinical Summary ---
Author Organization [facility] Address [address] [place] [address] Care Team Providers Care Draw Operator Name Role Phone Alarcon, Arianne FLORES Primary Care Provider [phone] Source Comments [facility],non-owned Affiliates and Associated Physician Practices is amultiple site organization consisting of ambulatory clinics and hospital sitesin [place], [place], [place] and [place]. This disclosure is being madepursuant to the Care Everywhere program and may not contain all information available regarding this patient. Last updated 18.[facility] Allergies Active Allergy Reactions Criticality Noted Date Comments Penicillins Urticaria Medium 03/07/2022 Sulfa Drugs Anaphylaxis High 03/07/2022 Medications * Be aware that medications may not be up to date on this document. Alwaysverify current medications with the patient. cetirizine (ZyrTEC) 10 MG tablet TAKE ONE TABLET BY MOUTH DAILY NEEDED FOR ANGIOEDEMA 1 Active diphenhydrAMINE (Benadryl) 25 MG capsule TAKE ONE CAPSULE BY MOUTH THREE TIMES A DAY NEEDED FOR ALLERGIC REACTION 1 Active escitalopram (Lexapro) 20 MG tablet 1 tablet Active gabapentin (Neurontin) 300 MG capsule Take 1 capsule by mouth 3 times daily 2 Active lacosamide (Vimpat) 100 MG tablet TAKE ONE (1) TABLET BY MOUTH TWO (2) TIMES DAILY. 2 Active lamoTRIgine (LaMICtal) 100 MG tablet 2 tablets Active zolpidem (Ambien) 10 MG tablet 2 Active Active Problems Problem Noted Date Diagnosed Date Closed fracture of multiple ribs of left side with routine healing 01/14/2023 Immunizations Immunization Administration Dates Next Due TDAP (7yrs+) 03/07/2022 Social History Tobacco Use Types Packs/Day Years Used Date Smoking Tobacco: Never Smokeless Tobacco: Never Tobacco Cessation:Counseling Given: No Alcohol Use Standard Drinks/Week Comments Never 0 (1 standard drink = 0.6 oz pur e alcohol) Comments Unknown Sex and Gender Information Value Date Recorded Sex Assigned at Female 05/02/2022 12:48 PM CDT Legal Sex Female 6:31 AM MOLD YARD CRANE OPERATOR Gender Identity Female 05/02/2022 12:48 PM CDT [...] 2:43 PM CDT Height 165.1 cm (5' 5) 03/12/2022 2:43 PM CDT Body Mass Index [...] SCREENING 1976 LIPID TESTING 1976 MAMMOGRAM 1976 HIV SCREENING 1991 HEPATITIS C SCREENING 07/29/1994 HEPATITIS B VACCINE (1 of 3 - 19+ 3-dose series) 1995 PAP SMEAR 1997 COVID-19 VACCINE (1 - season) 2024 DEPRESSION SCREENING 07/07/2024 INFLUENZA VACCINE (#1) 2025 , 04/07/2020, 05/25/2019, Additional history exists SCREENING FOR [...] - 26 mg/dL 03/07/2022 5:42 AM CDT [facility] Creatinine 0.70 0.56 - 0.96 mg/dL 03/07/2022 5:42 AM T [facility] Sodium 145 136 - 145 mmol/L 03/07/2022 5:42 AM T [facility] Potassium 3.9 3.5 - 4.5 mmol/L 03/07/2022 5:42 AM [facility] Chloride 112(H) 98 - 107 mmol/L 03/07/2022 5:42 AM [facility] CO2 22 22 - 29 mmol/L 03/07/2022 5:42 AM [facility] Glucose 131(H) 70 - 115 mg/dL 03/07/2022 5:42 AM [facility] Calcium 8.3(L) 8.4 - 10.2 mg/dL 03/07/2022 5:42 AM [facility] Anion Gap 15 8 - 18 03/07/2022 5:42 AM [facility] BUN/Creatinine Ratio 14 7 - 23 03/07/2022 5:42 AM [facility] Osmolality Calculated 301(H) 270 - 300 mOsm/kg 03/07/2022 5:42 AM [facility] eGFR by CKD-EPI >90 >=90 mL/min/1.7 3 m2 03/07/2022 5:42 AM [facility] Blood BLOOD SPECIMEN / Unknown Venipuncture / Unknown 03/07/2022 5:08 AM T 03/07/2022 5:14 AM [facility] Feroz Salazar MD LAB - CHEMISTRY ORDERABLES Final Result [facility] [address] [place] [address], [facility] [phone] from Last 3 Months or Most Recently Relevant to Health Maintenance [place] [address] [address] [facility] Care Teams Draw Operator Relationship Specialty Start Date End Date Arianne Alarcon APRN-DIRECTOR WORKFORCE MANAGEMENT [address] [place] [address] PCP - General 10/08/19
--- OUTSIDE RECORDS SUMMARY | 2025-02-10 10:42 | XMS_ITS | Encounter Summary ---
Author Organization [facility] Address [address] [place] [address] Phone Care Team Providers Care Laborer Chemical Processing Name Role Phone Jack Dukes MD Unavailable [phone] Arianne Alarcon APRN, MMI TEACHER Primary Care Provider [phone] Lito Chatterjee MD Unavailable [phone] Gustabo Falk MD Unavailable [phone] Amrit Goddard MD Unavailable Phan Grant MD Unavailable [phone] Reason for Visit * Reason Comments Medication Refill Encounter Details Date Type Department Care Team (Late st Contact Info) Description 01/17/2022 Refill [facility] - Neurology 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 - Neurology 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) documented in this encounter Care Teams Laborer Chemical Processing Relationship Specialty Start Date End Date Arianne Alarcon APRN, MMI TEACHER [address] [place] [address] PCP - General Family Medicine 08/29/16 Jack Dukes MD [address] [place] [address] Consulting Physician Neurology 08/21/16 Lito Chatterjee MD [address] [place] [address] Consulting Physician General Surgery 04/27/19 Gustabo Falk MD [address] [address] Consulting Physician Radiation Oncology 04/27/19 Amrit Goddard MD [address] [address] Consulting Physician General Surgery 06/08/19 Phan Grant MD [address] [place] [address] Consulting Physician Medical Oncology 02/16/20 documented as of this encounter
--- OUTSIDE RECORDS SUMMARY | 2025-02-10 10:42 | XMS_ITS | Encounter Summary ---
Author Organization [facility] Address [address] [place] [address] Phone Care Team Providers Care Highway Truck Driver Name Role Phone Jack Dukes MD Unavailable [phone] Arianne Alarcon APRN, AVIONICS SYSTEMS INTEGRATION SPECIALIST Primary Care Provider [phone] Lito Chatterjee MD Unavailable [phone] Gustabo Falk MD Unavailable [phone] Amrit Goddard MD Unavailable Phan Grant MD Unavailable [phone] Reason for Visit * Reason Comments Medication Refill Encounter Details Date Type Department Care Team (Late st Contact Info) Description 06/26/2022 Refill [facility] - [facility] [address] [place] [address] Jack Dukes MD [address] [place] [address] Medication Refill Social History Tobacco Use Types Packs/Day Years Used Date Smoking Tobacco: Never Smokeless Tobacco: Never Alcohol Use Standard Drinks/Week Comments No 0 (1 standard drink = 0.6 oz pur e alcohol) Comments No Sex and Gender Information Value Date Recorded Sex Assigned at Not on file Legal Sex Female 2:52 AM CLINICAL LABORATORY SERVICE TEACHER Gender Identity Not on file Sexual Orientation Not on file 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) documented in this encounter Care Teams Highway Truck Driver Relationship Specialty Start Date End Date Arianne Alarcon APRN, CNP [address] [place] [address] PCP - General Family Medicine 08/29/16 Jack Dukes MD [address] [place] [address] Consulting Physician Neurology 08/21/16 Lito Chatterjee MD [address] [place] [address] Consulting Physician General Surgery 04/27/19 Gustabo Falk MD [address] [place] [address] Consulting Physician Radiation Oncology 04/27/19 Amrit Goddard MD [address] [facility] [address] [place] [address] Consulting Physician General Surgery 06/08/19 Phan Grant MD [address] [place] [address] Consulting Physician Medical Oncology 02/16/20 documented as of this encounter
--- OUTSIDE RECORDS SUMMARY | 2025-02-10 10:42 | XMS_ITS | Encounter Summary ---
Author Organization [facility] Address [address] [place] [address] Phone Care Team Providers Care Coffee Weigher Name Role Phone Jack Dukes MD Unavailable [phone] Arianne Alarcon APRN, WELT SOLE LAYER Primary Care Provider [phone] Lito Chatterjee MD Unavailable [phone] Gustabo Falk MD Unavailable [phone] Amrit Goddard MD Unavailable Phan Grant MD Unavailable [phone] Reason for Visit * Reason Comments Medication Refill Encounter Details Date Type Department Care Team (Late st Contact Info) Description 05/24/2022 Refill [facility] - Neurology [facility] [address] [place] [address] Jack Dukes MD [address] [place] [address] Medication Refill Social History Tobacco Use Types Packs/Day Years Used Date Smoking Tobacco: Never Smokeless Tobacco: Never Alcohol Use Standard Drinks/Week Comments No 0 (1 standard drink = 0.6 oz pur e alcohol) Comments No Sex and Gender Information Value Date Recorded Sex Assigned at Not on file Legal Sex Female 2:52 AM CRAPS MANAGER Gender Identity Not on file Sexual Orientation Not on file 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 Not on file Not on file Not on file documented as of this encounter Plan of Treatment Upcoming Encounters Date Type Department Care Team (Late st Contact Info) Description 02/17/2025 10:15 AM CDT Telemedicine [facility] [address] [place] [address] Jack Dukes MD [address] [place] [address] 08/25/2025 2:00 PM CRAPS MANAGER Office Visit [facility] Oncology Services [address] [place] [address] Phan Grant MD [address] [place] [address] Discharge Disposition: Discharged to home or Selfcare documented as of this encounter Visit Diagnoses Diagnosis Seizures (HCC) Other convulsions documented in this encounter Care Teams Coffee Weigher Relationship Specialty Start Date End Date Arianne Alarcon APRN, CNP [address] [place] [address] PCP - General Family Medicine 08/29/16 Jack Dukes MD [address] [place] [address] Consulting Physician Neurology 08/21/16 Lito Chatterjee MD [address] [place] [address] Consulting Physician General Surgery 04/27/19 Gustabo Falk MD [address] [place] [address] Consulting Physician Radiation Oncology 04/27/19 Amrit Goddard MD [address] [address] Consulting Physician General Surgery 06/08/19 Phan Grant MD [address] [place] [address] Consulting Physician Medical Oncology 02/16/20 documented as of this encounter
--- OUTSIDE RECORDS SUMMARY | 2025-02-10 10:42 | XMS_ITS | Encounter Summary ---
Author Organization [facility] Address [address] [place] [address] Phone Care Team Providers Care Family Helper Name Role Phone Jack Dukes MD Unavailable [phone] Arianne Alarcon APRN, INCISING MACHINE OPERATOR Primary Care Provider [phone] Lito Chatterjee MD Unavailable [phone] Gustabo Falk MD Unavailable [phone] Amrit Goddard MD Unavailable Phan Grant MD Unavailable [phone] Reason for Visit * Reason Comments Medication Refill Encounter Details Date Type Department Care Team (Late st Contact Info) Description 09/10/2023 Refill [facility] - Neurology [facility] [address] [place] [address] Jack Dukes MD [address] [place] [address] Medication Refill Social History Tobacco Use Types Packs/Day Years Used Date Smoking Tobacco: Never Smokeless Tobacco: Never Alcohol Use Standard Drinks/Week Comments No 0 (1 standard drink = 0.6 oz pur e alcohol) Comments No Sex and Gender Information Value Date Recorded Sex Assigned at Not on file Legal Sex Female 2:52 AM INSULATING MACHINE OPERATOR Gender Identity Not on file Sexual Orientation Not on file 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 on file Not on file [...] 90 days and meeting all other requirements LATING MACHINE OPERATOR documented in this encounter Plan of Treatment Upcoming Encounters Date Type Department Care Team (Late st Contact Info) Description 02/17/2025 10:15 AM CDT Telemedicine [facility] Neurology [facility] [address] [place] [address] Jack Dukes MD [address] [place] [address] 08/25/2025 2:00 PM INSULATING MACHINE OPERATOR Office Visit [facility] Oncology Services [address] [place] [address] Phan Grant MD [address] [place] [address] Discharge Disposition: Discharged to home or Selfcare documented as of this encounter Visit Diagnoses Diagnosis Seizures (HCC) Other convulsions documented in this encounter Care Teams Family Helper Relationship Specialty Start Date End Date Agnes ArianneLISA king CNP [address] [place] [address] PCP - General Family Medicine 08/29/16 Jack Dukes MD [address] [place] [address] Consulting Physician Neurology 08/21/16 Lito Chatterjee MD [address] [place] [address] Consulting Physician General Surgery 04/27/19 Gustabo Falk MD [address] [place] [address] Consulting Physician Radiation Oncology 04/27/19 Am[facility]ard MD [address] [facility] [address] [address] Consulting Physician General Surgery 06/08/19 Phan Grant MD [address] [place] [address] Consulting Physician Medical Oncology 02/16/20 documented as of this encounter
[2025-02-10 10:55] VITALS: BP 87/72; PULSE 81
[2025-02-10 10:56] VITALS: BP 98/69; PULSE 86
[2025-02-10 11:01] VITALS: BP 95/75; PULSE 80; RESP 14; O2SAT 98
[2025-02-10 11:06] LABS: Hematocrit 40.4 % (37.0-47.0); Hemoglobin 13.3 g/dL (12.0-15.0); Immature Granulocyte Percent A 0.3 % (0-0.5); Lymphocytes Absolute Auto 2.04 K/mm3 (0.9-3.2); Mean Corpuscular HGB Conc 32.9 g/dl (32-36); Mean Corpuscular Hemoglobin 30.0 pg (26-34); Mean Corpuscular Volume 91.0 fl (80-100); Nucleated Red Blood Cells Absolute Auto 0.000 K/mm3 (0.0-0.012); Nucleated Red Blood Cells Perc 0.0 % (0.0-0.2); Platelet Count Result 258 k/mm3 (150-375); Red Blood Count 4.44 M/mm3 (4.2-5.4); White Blood Count 6.1 K/mm3 (4.5-10.0)
[2025-02-10 11:18] LABS: BEDSIDEPREGUCG Negative (Negative)
[2025-02-10] MEDS: LACOSAMIDE (*CRX) 100 MG TABLET PO (11:24)
[2025-02-10] MEDS: SODIUM CHLORIDE 0.9% IV 1,000 ML 999 ML IV CONT (11:24)
[2025-02-10 11:29] LABS: Add Urine Microscopic? YES; Appearance Urine Clear (Clear); Glucose Urine UA Negative (Negative); Leukocyte Esterase Ur Trace LEU/UL (Negative); Nitrate Urine Negative (Negative); Non Pathogenic Casts 0-2; Specific Grav Ur 1.012 (1.001-1.035)
[2025-02-10 11:30] LABS: Alanine Aminotransferase 30 U/L (6-35); Albumin Level 4.0 g/dL (3.5-5.1); Alkaline Phosphatase 75 U/L (38-126); Anion Gap 6 mmol/L (4-12); Aspartate Amino Transferase 42 U/L (14-36); Bilirubin,Total 0.4 mg/dL (0.2-1.3); Blood Urea Nitrogen 9 mg/dL (7-17); Calcium 9.3 mg/dL (8.4-10.2); Carbon Dioxide 30 mmol/L (22-30); Chloride 100 mmol/L (98-107); Estimated CRCL calculation 63 ml/min; Estimated Glomerular Filt Rate 60; Glucose 105 mg/dL (65-110); Potassium 4.1 mmol/L (3.4-5.0); Sodium 136 mmol/L (137-145); Total Protein 7.3 g/dL (6.3-8.2)
[2025-02-10 11:31] VITALS: BP 93/70; PULSE 83; RESP 17; TEMP 36.7; O2SAT 92
--- NOTE | 2025-02-10 11:58 | ED_ITS ---
HPI - General Adult General Chief complaint: Seizure Stated complaint: Seizure Time Seen by Provider: 02/10/25 10:03 History of Present Illness HPI narrative: Patient is a 49-year-old female who presents ER from [facility] after having either a syncopal episode or a seizure. Patient has history of seizures and takes Lamictal and Vimpat. She has not been receiving her Vimpat for the last 2 days. She is currently undergoing alcohol treatment. Last drink was 4 days ago. She does not feel as though she is withdrawing very hard. She reports that today they were trying to draw blood on her and they were digging and needle around in her arm when she then lost consciousness. She did not urinate on herself. No tongue biting. Related Data Home Medications ?Medication ?Instructions ?Recorded ?Confirmed ?Last Taken ?Type escitalopram oxalate 20 mg tablet 20 mg PO DAILY 12/02/19 04/10/22 Unknown History lamotrigine 200 mg tablet 200 mg PO BID 12/02/19 04/10/22 Unknown History zolpidem 5 mg tablet 5 mg PO HS PRN Sleep 12/02/19 04/10/22 Unknown History bupropion HCl 150 mg tablet,12 hr mg PO 07/08/24 Unknown History sustained-release omeprazole 20 mg capsule,delayed mg 10/11/24 Unknown History release Allergies Allergy/AdvReac Type Severity Reaction Status Date / Time Sulfa (Sulfonamide Allergy Severe Swelling Verified 10/11/24 16:44 Antibiotics) Penicillins Allergy Intermediate Difficulty Verified 10/11/24 16:44 Breathing tramadol Allergy Mild Seizure Verified 10/11/24 16:44 Review of Systems 2 Review of Systems: All systems reviewed & are unremarkable except as noted in HPI and below Constitutional: Constitutional: Reports no additional constitutional complaints Cardiovascular: Cardiovascular: Reports no additional cardiovascular complaints Respiratory: Respiratory: Reports no additional respiratory complaints Neurologic: Reports system reviewed and no additional complaints, except as documented PMF Past Medical History Medical History Depression Epilepsy History of recent chemotherapy Finished 10/14/19 Breast cancer Surgical History Surgical History History of ovarian cystectomy Bilateral 2001 and 2002 History of tubal ligation Hx of appendectomy 1993 History of lumpectomy of right breast Family History Family History Mother Hypertension Family history of diabetes mellitus in first degree relative Interstitial lung disease Father Asthma Grandparent Carcinoma of colon Social History Social History Smoking status: Never smoker Second hand tobacco smoke exposure: No Alcohol intake: never Living arrangements: with family Gender identity (if verbalized by the patient): Female Exam 2 Narrative: GENERAL: Well-appearing, well-nourished, and in no acute distress. HEAD: Normocephalic, atraumatic. EYES: PERRL and EOMI. ENT: Mucous membranes moist. No tongue biting CHEST: Clear to auscultation. No respiratory distress. HEART: Regular rate and rhythm. Normal peripheral pulses. ABDOMEN: Soft, nontender, nondistended. EXTREMITIES: Normal range of motion. No edema. SKIN: Warm, dry, no rash. NEURO: Alert and oriented x3. PSYCH: Normal mood and affect. Course Course Emergency Course: Patient was lightheaded here when she got a needlestick as well. Patient did receive IV fluid. She received an oral dose of her Vimpat. CMP/CBC/urinalysis unremarkable. He EKG and chest x-ray normal. Discharge back to facility. Vital Signs Vital signs: Vital Signs Temperature 97.9 F 02/10/25 10:30 Pulse Rate 84 02/10/25 10:30 Respiratory Rate 16 02/10/25 10:30 Blood Pressure 108/77 02/10/25 10:30 Pulse Oximetry 98 02/10/25 10:30 Oxygen Delivery Room Air 02/10/25 10:30 Temperature 97.9 F 02/10/25 10:30 Pulse Rate 86 02/10/25 10:56 Respiratory Rate 16 02/10/25 10:30 Blood Pressure 98/69 L 02/10/25 10:56 Pulse Oximetry 98 02/10/25 10:30 Oxygen Delivery Room Air 02/10/25 10:30 Medical Decision Making Vital Signs Vital Signs: Vital Signs Temperature 97.9 F 02/10/25 10:30 Pulse Rate 84 02/10/25 10:30 Respiratory Rate 16 02/10/25 10:30 Blood Pressure 108/77 02/10/25 10:30 Pulse Oximetry 98 02/10/25 10:30 Oxygen Delivery Room Air 02/10/25 10:30 Temperature 97.9 F 02/10/25 10:30 Pulse Rate 86 02/10/25 10:56 Respiratory Rate 16 02/10/25 10:30 Blood Pressure 98/69 L 02/10/25 10:56 Pulse Oximetry 98 02/10/25 10:30 Oxygen Delivery Room Air 02/10/25 10:30 Lab Data 02/10/25 10:53 02/10/25 10:53 Labs: Lab Results 02/10/25 02/10/25 02/10/25 Range/Units 10:53 11:14 11:17 WBC 6.1 (4.5-10.0) K/mm3 RBC 4.44 (4.2-5.4) M/mm3 Hgb 13.3 (12.0-15.0) g/dL Hct 40.4 (37.0-47.0) % MCV 91.0 (80-100) fl MCH 30.0 (26-34) pg MCHC 32.9 (32-36) g/dl RDW 12.7 (11.5-14.5) % Plt Count 258 (150-375) k/mm3 MPV 8.7 (7.4-10.4) fl Immature Gran % (Auto) 0.3 (0-0.5) % Neut % (Auto) 55.0 (45.5-73.1) % Lymph % (Auto) 33.6 (18.3-44.2) % [place] % (Auto) 8.7 H (2.6-8.5) % Eos % (Auto) 2.1 (0-4.4) % Baso % (Auto) 0.3 (0.2-1.2) % Lymph # (Auto) 2.04 (0.9-3.2) K/mm3 [place] # (Auto) 0.5 (0.1-0.6) K/mm3 Eos # (Auto) 0.1 (0-0.3) K/mm3 Baso # (Auto) 0.0 (0.0-0.1) K/mm3 Abs Immat Gran (auto) 0.02 (0.00-0.031) K/mm3 Absolute Neuts (auto) 3.3 (1.3-6.7) K/mm3 Absolute Nucleated RBC 0.000 (0.0-0.012) K/mm3 Nucleated RBC % 0.0 (0.0-0.2) % Sodium 136 L (137-145) mmol/L Potassium 4.1 (3.4-5.0) mmol/L Chloride 100 (98-107) mmol/L Carbon Dioxide 30 (22-30) mmol/L Anion Gap 6 (4-12) mmol/L BUN 9 (7-17) mg/dL Creatinine 0.99 (0.7-1.0) mg/dL Estim Creat Clear Calc 63 ml/min Estimated GFR 60 (59 - ) Glucose 105 (65-110) mg/dL Calcium 9.3 (8.4-10.2) mg/dL Total Bilirubin 0.4 (0.2-1.3) mg/dL AST 42 H (14-36) U/L ALT 30 (6-35) U/L Alkaline Phosphatase 75 (38-126) U/L Total Protein 7.3 (6.3-8.2) g/dL Albumin 4.0 (3.5-5.1) g/dL Urine Color Yellow (Yellow) Urine Appearance Clear (Clear) Urine pH 6.5 (5.0-9.0) Ur Specific [place] 1.012 (1.001-1.035) Urine Protein Negative (Negative) mg/dL Urine Glucose (UA) Negative (Negative) mg/dL Urine Ketones Negative (Negative) mg/dL Ur Blood (Man) Negative (Negative) Urine Nitrate Negative (Negative) Urine Bilirubin Negative (Negative) Urine Urobilinogen 0.2 (<2.0) mg/dL Leukocyte Esterase Rfl Trace H (Negative) [place]/UL Urine RBC 0-2 (0-2) /hpf Urine WBC 0-5 (0-3) /hpf Ur Squamous Epith Cells None seen (Few) /hpf Urine Bacteria None seen /hpf Urine Casts 0-2 POC Urine HCG, Qual Negative (Negative) Imaging Data Radiologist's impression: ITS Impressions Chest X-Ray 02/10/25 11:54 IMPRESSION: 1: NO ACUTE CARDIOPULMONARY DISEASE. ECG Data EKG #1: ECG completion date: 02/10/25 ECG completion time: 11:00 EKG Interpretation: normal rate (1), sinus rhythm, non-specific ST changes, normal QRS and normal QT Discharge Plan Discharge Clinical Impression: Syncope, vasovagal Patient Disposition: Home Condition: Stable Instructions: Syncope (ED) Additional Instructions: Please return to the emergency department if you develop severe and persistent chest pain, difficulty breathing, dizziness, leg swelling or if you are coughing up blood as these can be signs of a medical emergency. Please call your doctor for a follow up appointment to determine the need for further testing. Patient Language: Amharic Prescriptions: No Action cetirizine [Zyrtec] 10 mg tablet 10 mg PO DAILY PRN (Reason: angioedema) Qty: 30 0RF zolpidem 5 mg Tablet 5 mg PO HS PRN (Reason: Sleep) lamotrigine 200 mg Tablet 200 mg PO BID escitalopram oxalate 20 mg Tablet 20 mg PO DAILY bupropion HCl 150 mg tablet sustained-release 12 hr PO omeprazole 20 mg capsule,delayed release(DR/EC) clindamycin HCl 300 mg capsule 300 mg PO Q8H 7 Days Qty: 21 0RF Follow-up/Referrals: Agnes,Arianne Parks APN [Primary Care Provider] - 1 Week
[2025-02-10 12:00] VITALS: BP 104/68; PULSE 83; RESP 16; TEMP 36.6; O2SAT 95
== END 2025-02-10 12:22 | disposition home or self-care (01) ==
PROVIDERS: Emergency Provider Emergency Medicine; PCP Nurse Practitioner Family
DX: R55 Syncope and collapse (principal); G40.909 Epilepsy, unspecified, not intractable, without status epilepticus; F32.A Depression, unspecified; Z85.3 Personal history of malignant neoplasm of breast; Z92.21 Personal history of antineoplastic chemotherapy; R94.31 Abnormal electrocardiogram [ECG] [EKG]; Z79.899 Other long term (current) drug therapy
CPT/HCPCS: 36415; 71046; 80053; 81001; 81025; 85025; 93005; 96360; 99283; A9270; J7030

== ENCOUNTER 2025-02-11 11:14 | Emergency (ER) | payer OTHER, SELFPAY ==
[2025-02-11] VITALS (13 sets, daily range): BP systolic 90–107; BP diastolic 54–68; PULSE 85–91; RESP 13–18; TEMP 37.3; O2SAT 91–100
--- NOTE | ~2025-02-11 | CT_ITS ---
EXAMINATION: CT BRAIN W/O DATE: 02/11/2025 12:40 INDICATION: Seizure. Headache. TECHNIQUE: Computed tomography (CT) of the head was performed without intravenous contrast. The dose- length product was 605.33 mGy-cm. Automated exposure control and iterative reconstruction technique were employed. COMPARISON: No prior studies for comparison. FINDINGS: Normal brain parenchymal volume for age. Normal torres-white differentiation. No acute intrac ranial hemorrhage, infarction, mass or mass effect. No ventriculomegaly or midline shift. Midline sagittal images demonstrate a normal corpus callosum, c raniovertebral junction and sella turcica. Basilar cisterns are patent. Paranasal sinuses and mastoids are pneumatized. No depressed skull fractures. IMPRESSION: 1. No acute intracranial abnormality. Reviewed, dictated and finalized at location A.
--- OUTSIDE RECORDS SUMMARY | 2025-02-11 11:16 | XMS_ITS | Encounter Summary ---
Author Organization [facility] Address [address] [place] [address] Phone Care Team Providers Care Asbestos Shingle Roofer Name Role Phone Jack Dukes MD Unavailable [phone] Arianne Alarcon APRN, BEHAVIORAL HEALTH ASSISTANT Primary Care Provider [phone] Lito Chatterjee MD Unavailable [phone] Gustabo Falk MD Unavailable [phone] Amrit Goddard MD Unavailable Phan Grant MD Unavailable [phone] Reason for Visit * Reason Comments Medication Refill Encounter Details Date Type Department Care Team (Late st Contact Info) Description 03/22/2022 Refill [facility] - Neurology [facility] [address] [place] [address] Jack Dukes MD [address] [place] [address] Medication Refill Social History Tobacco Use Types Packs/Day Years Used Date Smoking Tobacco: Never Smokeless Tobacco: Never Alcohol Use Standard Drinks/Week Comments No 0 (1 standard drink = 0.6 oz pur e alcohol) Comments No Sex and Gender Information Value Date Recorded Sex Assigned at Not on file Legal Sex Female 2:52 AM STRUCTURAL STEEL WORKER HELPER Gender Identity Not on file Sexual Orientation Not on file 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 Not on file Not on file Not on file documented as of this encounter Plan of Treatment Upcoming Encounters Date Type Department Care Team (Late st Contact Info) Description 02/17/2025 10:15 AM CDT Telemedicine [facility] [address] [place] [address] Jack Dukes MD [address] [place] [address] 08/25/2025 2:00 PM STRUCTURAL STEEL WORKER HELPER Office Visit [facility] Oncology Services [address] [place] [address] Phan Grant MD [address] [place] [address] Discharge Disposition: Discharged to home or Selfcare documented as of this encounter Visit Diagnoses Diagnosis Seizures (HCC) Other convulsions documented in this encounter Care Teams Asbestos Shingle Roofer Relationship Specialty Start Date End Date Arianne Alarcon APRN, CNP [address] [place] [address] PCP - General Family Medicine 08/29/16 Jack Dukes MD [address] [place] [address] Consulting Physician Neurology 08/21/16 Lito Chatterjee MD [address] [place] [address] Consulting Physician General Surgery 04/27/19 Gustabo Falk MD [address] [place] [address] Consulting Physician Radiation Oncology 04/27/19 Amrit Goddard MD #[address] [address] Consulting Physician General Surgery 06/08/19 Phan Grant MD [address] [place] [address] Consulting Physician Medical Oncology 02/16/20 documented as of this encounter
--- OUTSIDE RECORDS SUMMARY | 2025-02-11 11:16 | XMS_ITS | Encounter Summary ---
Author Organization [facility] Address [address] [place] [address] Phone Care Team Providers Care Book Mender Name Role Phone Jack Dukes MD Unavailable [phone] Arianne Alarcon APRN, LEG ASSEMBLER Primary Care Provider [phone] Lito Chatterjee MD Unavailable [phone] Gustabo Falk MD Unavailable [phone] Amrit Goddard MD Unavailable Phan Grant MD Unavailable [phone] Reason for Visit * Reason Comments Medication Refill Encounter Details Date Type Department Care Team (Late st Contact Info) Description 05/30/2021 Refill [facility] - Neurology [facility] [address] [place] [address] Jack Dukes MD [address] [place] [address] Medication Refill Social History Tobacco Use Types Packs/Day Years Used Date Smoking Tobacco: Never Smokeless Tobacco: Never Alcohol Use Standard Drinks/Week Comments No 0 (1 standard drink = 0.6 oz pur e alcohol) Comments No Sex and Gender Information Value Date Recorded Sex Assigned at Not on file Legal Sex Female 2:52 AM WINDOW SHADE CUTTER AND MOUNTER Gender Identity Not on file Sexual Orientation Not on file 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 No / Unsure 05/22/2021 11:16 PM WINDOW SHADE CUTTER AND MOUNTER documented as of this encounter Plan of Treatment Upcoming Encounters Date Type Department Care Team (Late st Contact Info) Description 02/17/2025 10:15 AM CDT Telemedicine [facility] Neurology [facility] [address] [place] [address] Jack Dukes MD [address] [place] [address] 08/25/2025 2:00 PM WINDOW SHADE CUTTER AND MOUNTER Office Visit [facility] Oncology Services [address] [place] [address] Phan Grant MD [address] [place] [address] Discharge Disposition: Discharged to home or Selfcare documented as of this encounter Visit Diagnoses Diagnosis 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) documented in this encounter Care Teams Book Mender Relationship Specialty Start Date End Date Arianne Alarcon APRN, ROMEL [address] [place], [place] [id number] PCP - General Family Medicine 08/29/16 Jack Dukes MD [address] [place] [address] Consulting Physician Neurology 08/21/16 Lito Chatterjee MD [address] [place] [address] Consulting Physician General Surgery 04/27/19 Gustabo Falk MD [address] [address] Consulting Physician Radiation Oncology 04/27/19 Amrit Goddard MD #[address] [address] Consulting Physician General Surgery 06/08/19 Phan Grant MD [address] [place] [address] Consulting Physician Medical Oncology 02/16/20 documented as of this encounter
--- OUTSIDE RECORDS SUMMARY | 2025-02-11 11:16 | XMS_ITS | Encounter Summary ---
Author Organization [facility] Address [address] [place] [address] Phone Care Team Providers Care Distribution Designer Name Role Phone Jack Dukes MD Unavailable [phone] Arianne Alarcon APRN, DEBRANDER Primary Care Provider [phone] Lito Chatterjee MD Unavailable [phone] Gustabo Falk MD Unavailable [phone] Amrit Goddard MD Unavailable Phan Grant MD Unavailable [phone] Reason for Visit * Reason Comments Medication Refill Encounter Details Date Type Department Care Team (Late st Contact Info) Description 02/22/2020 Refill [facility] - [place] [address] [place] [address] Jack Dukes MD [address] [place] [address] Medication Refill Social History Tobacco Use Types Packs/Day Years Used Date Smoking Tobacco: Never Smokeless Tobacco: Never Alcohol Use Standard Drinks/Week Comments No 0 (1 standard drink = 0.6 oz pur e alcohol) Comments No Sex and Gender Information Value Date Recorded Sex Assigned at Not on file Legal Sex Female 2:52 AM CHEMICAL INSPECTOR Gender Identity Not on file Sexual Orientation Not on file 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) documented in this encounter Care Teams Distribution Designer Relationship Specialty Start Date End Date Arianne Alarcon APRN, ROMEL [address] [place], [place] [id number] PCP - General Family Medicine 08/29/16 Jack Dukes MD [address] [place] [address] Consulting Physician Neurology 08/21/16 Lito Chatterjee MD [address] [place] [address] Consulting Physician General Surgery 04/27/19 Gustabo Falk MD [address] [address] Consulting Physician Radiation Oncology 04/27/19 Amrit Goddard MD [address] [address] Consulting Physician General Surgery 06/08/19 Phan Grant MD [address] [place] [address] Consulting Physician Medical Oncology 02/16/20 documented as of this encounter
--- OUTSIDE RECORDS SUMMARY | 2025-02-11 11:16 | XMS_ITS | Encounter Summary ---
Author Organization [facility] Address [address] [facility] [address] Phone Care Team Providers Care Drum Attendant Name Role Phone Jack Dukes MD Unavailable [phone] Arianne Alarcon APRN, CNP Primary Care Provider [phone] Lito Chatterjee MD Unavailable [phone] Gustabo Falk MD Unavailable [phone] Amrit Goddard MD Unavailable Phan Grant MD Unavailable [phone] Reason for Visit * Reason Comments Medication Refill Encounter Details Date Type Department Care Team (Late st Contact Info) Description 05/22/2020 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 No / Unsure 05/22/2020 3:41 PM BOAT CARPENTER MECHANIC documented as of this encounter Miscellaneous Notes * Telephone Encounter - Tanya Hylton APN, CNP - 05/26/2020 2:17 PM BOAT CARPENTER MECHANIC Refill Lorazepam 0.5 mg tabs, 1 tab BID as needed. # 60 tabs, 3 refills. CARPENTER MECHANIC documented in this encounter Plan of Treatment Upcoming Encounters Date Type Department Care Team (Late st Contact Info) Description 02/17/2025 10:15 AM CDT Telemedicine [facility] [address] [place] [address] Jack Dukes MD [address] [place] [address] 08/25/2025 2:00 PM BOAT CARPENTER MECHANIC Office Visit [facility] Oncology Services [address] [place] [address] Phan Grant MD [address] [place] [address] Discharge Disposition: Discharged to home or Selfcare documented as of this encounter Visit Diagnoses Not on filedocumented in this encounter Care Teams Drum Attendant Relationship Specialty Start Date End Date Arianne Alarcon APRN, CNP [address] [place] [address] PCP - General Family Medicine 08/29/16 Jack Dukes MD [address] [place] [address] Consulting Physician Neurology 08/21/16 Lito Chatterjee MD [address] [place] [address] Consulting Physician General Surgery 04/27/19 Gustabo Falk MD [address] [place] [address] Consulting Physician Radiation Oncology 04/27/19 Amrit Goddard MD #[address] [address] Consulting Physician General Surgery 06/08/19 Phan Grant MD [address] [place] [address] Consulting Physician Medical Oncology 02/16/20 documented as of this encounter
--- OUTSIDE RECORDS SUMMARY | 2025-02-11 11:16 | XMS_ITS | Encounter Summary ---
Author Organization [facility] Address [address] [place] [address] Phone Care Team Providers Care Lcpc Name Role Phone Jack Dukes MD Unavailable [phone] Arianne Alarcon APRN, SIEBEL DEVELOPER Primary Care Provider [phone] Lito Chatterjee MD Unavailable [phone] Gustabo Falk MD Unavailable [phone] Amrit Goddard MD Unavailable Phan Grant MD Unavailable [phone] Reason for Visit * Reason Comments Medication Refill Encounter Details Date Type Department Care Team (Late st Contact Info) Description 01/17/2022 Refill [facility] - Neurology [facility] [address] [place] [address] Jack Dukes MD [address] [place] [address] Medication Refill Social History Tobacco Use Types Packs/Day Years Used Date Smoking Tobacco: Never Smokeless Tobacco: Never Alcohol Use Standard Drinks/Week Comments No 0 (1 standard drink = 0.6 oz pur e alcohol) Comments No Sex and Gender Information Value Date Recorded Sex Assigned at Not on file Legal Sex Female 2:52 AM SCIENTIST/ENGINEER Gender Identity Not on file Sexual Orientation Not on file 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 Not on [...] Info) Description 02/17/2025 10:15 AM CDT Telemedicine [facility] - Neurology [facility] [address] [place] [address] Jack Dukes MD [address] [place] [address] 08/25/2025 2:00 PM SCIENTIST/ENGINEER Office Visit [facility] Oncology Services [address] [place] [address] Phan Grant MD [address] [place] [address] Discharge Disposition: Discharged to home or Selfcare documented as of this encounter Visit Diagnoses Diagnosis 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) documented in this encounter Care Teams Lcpc Relationship Specialty Start Date End Date Arianne Alarcon APRN, SIEBEL DEVELOPER [address] [place] [address] PCP - General Family Medicine 08/29/16 Jack Dukes MD [address] [place] [address] Consulting Physician Neurology 08/21/16 Lito Chatterjee MD [address] [place] [address] Consulting Physician General Surgery 04/27/19 Gustabo Falk MD [address] [address] Consulting Physician Radiation Oncology 04/27/19 Amrit Goddard MD #[address] [address] Consulting Physician General Surgery 06/08/19 Phan Grant MD [address] [place] [address] Consulting Physician Medical Oncology 02/16/20 documented as of this encounter
--- OUTSIDE RECORDS SUMMARY | 2025-02-11 11:16 | XMS_ITS | Encounter Summary ---
Author Organization [facility] Address [address] [place] [address] Phone Care Team Providers Care Home Inspector Name Role Phone Jack Dukes MD Unavailable [phone] Arianne Alarcon APRN, STALLION KEEPER Primary Care Provider [phone] Lito Chatterjee MD Unavailable [phone] Gustabo Falk MD Unavailable [phone] Amrit Goddard MD Unavailable Phan Grant MD Unavailable [phone] Reason for Visit * Reason Comments Medication Refill Encounter Details Date Type Department Care Team (Late st Contact Info) Description 05/24/2022 Refill [facility] [address] [place] [address] Jack Dukes MD [address] [place] [address] Medication Refill Social History Tobacco Use Types Packs/Day Years Used Date Smoking Tobacco: Never Smokeless Tobacco: Never Alcohol Use Standard Drinks/Week Comments No 0 (1 standard drink = 0.6 oz pur e alcohol) Comments No Sex and Gender Information Value Date Recorded Sex Assigned at Not on file Legal Sex Female 2:52 AM GENERAL FORECASTER Gender Identity Not on file Sexual Orientation Not on file 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 Not on file Not on file documented as of this encounter Plan of Treatment Upcoming Encounters Date Type Department Care Team (Late st Contact Info) Description 02/17/2025 10:15 AM CDT Telemedicine [facility] #[address] [place] [address] Jack Dukes MD [address] [place] [address] 08/25/2025 2:00 PM GENERAL FORECASTER Office Visit [facility] Oncology Services [address] [place] [address] Phan Grant MD [address] [place] [address] Discharge Disposition: Discharged to home or Selfcare documented as of this encounter Visit Diagnoses Diagnosis Seizures (HCC) Other convulsions documented in this encounter Care Teams Home Inspector Relationship Specialty Start Date End Date Arianne Alarcon APRN, CNP [address] [place] [address] PCP - General Family Medicine 08/29/16 Jack Dukes MD [address] [place] [address] Consulting Physician Neurology 08/21/16 Lito Chatterjee MD [address] [place] [address] Consulting Physician General Surgery 04/27/19 Gustabo Falk MD [address] [place] [address] Consulting Physician Radiation Oncology 04/27/19 Amrit Goddard MD #[address] [address] Consulting Physician General Surgery 06/08/19 Phan Grant MD [address] [place] [address] Consulting Physician Medical Oncology 02/16/20 documented as of this encounter
--- OUTSIDE RECORDS SUMMARY | 2025-02-11 11:16 | XMS_ITS | Encounter Summary ---
Author Organization [facility] Address [address] [place] [address] Phone Care Team Providers Care Mechanical Engineering Advisor Name Role Phone Jack Dukes MD Unavailable [phone] Arianne Alarcon APRN, CNP Primary Care Provider [phone] Lito Chatterjee MD Unavailable Gustabo Falk MD Unavailable [phone] Amrit Goddard MD Unavailable Phan Grant MD Unavailable [phone] Reason for Visit * Reason Comments Medication Refill Encounter Details Date Type Department Care Team (Late st Contact Info) Description 06/09/2020 [facility] [address] [place] [address] Phan Grant MD [address] [place] [address] Medication Refill Social History Tobacco Use Types Packs/Day Years Used Date Smoking Tobacco: Never Smokeless Tobacco: Never Alcohol Use Standard Drinks/Week Comments No 0 (1 standard drink = 0.6 oz pur e alcohol) Comments No Sex and Gender Information Value Date Recorded Sex Assigned at Not on file Legal Sex Female 2:52 AM WATER PUMP ASSEMBLER Gender Identity Not on file Sexual Orientation Not on file 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 No / Unsure 06/08/2020 9:05 AM WATER PUMP ASSEMBLER documented as of this encounter Miscellaneous Notes * Telephone Encounter - Tanya Hylton APN, CNP - 06/12/2020 1:04 PM WATER PUMP ASSEMBLER Filled 2 weeks ago. R PUMP ASSEMBLER * Telephone Encounter - Maria Del Carmen Brasher RN - 06/12/2020 1:03 PM CST Request denied; last filled 05/22/20 with 3 refills. R PUMP ASSEMBLER * Telephone Encounter - Maria Del Carmen Brasher RN - 06/12/2020 11:44 AM CST Okay to refill Lorazepam for Lu? Last fill 2 weeks ago. R PUMP ASSEMBLER documented in this encounter Plan of Treatment Upcoming Encounters Date Type Department Care Team (Late st Contact Info) Description 02/17/2025 10:15 AM CDT Telemedicine [facility] Neurology [facility] #[address] [place] [address] Jack Dukes MD [address] [place] [address] 08/25/2025 2:00 PM WATER PUMP ASSEMBLER Office Visit [facility] Oncology Services [address] [place] [address] Phan Grant MD [address] [place] [address] Discharge Disposition: Discharged to home or Selfcare documented as of this encounter Visit Diagnoses Not on filedocumented in this encounter Care Teams Mechanical Engineering Advisor Relationship Specialty Start Date End Date Arianne Alarcon APRNROMEL [address] [place] [address] PCP - General Family Medicine 08/29/16 Jack Dukes MD [address] [place] [address] Consulting Physician Neurology 08/21/16 Lito Chatterjee MD [address] [place] [address] Consulting Physician General Surgery 04/27/19 Gustabo Falk MD [address] [place] [address] Consulting Physician Radiation Oncology 04/27/19 Amrit Goddard MD #[address] [address] Consulting Physician General Surgery 06/08/19 Phan Grant MD [address] [place] [address] Consulting Physician Medical Oncology 02/16/20 documented as of this encounter
--- OUTSIDE RECORDS SUMMARY | 2025-02-11 11:16 | XMS_ITS | Encounter Summary ---
Author Organization [facility] Address [address] [place] [address] Phone Care Team Providers Care Digital Media Associate Name Role Phone Jack Dukes MD Unavailable [phone] Arianne Alarcon APRN, PROCESSING TECHNICIAN Primary Care Provider [phone] Lito Chatterjee MD Unavailable [phone] Gustabo Falk MD Unavailable [phone] Amrit Goddard MD Unavailable Phan Grant MD Unavailable [phone] Reason for Visit * Reason Comments Medication Refill Encounter Details Date Type Department Care Team (Late st Contact Info) Description 12/06/2020 Refill [facility] [place] #[address] [place] [address] Jack Dukes MD [address] [place] [address] Medication Refill Social History Tobacco Use Types Packs/Day Years Used Date Smoking Tobacco: Never Smokeless Tobacco: Never Alcohol Use Standard Drinks/Week Comments No 0 (1 standard drink = 0.6 oz pur e alcohol) Comments No Sex and Gender Information Value Date Recorded Sex Assigned at Not on file Legal Sex Female 2:52 AM FIRE CREW WORKER Gender Identity Not on file Sexual Orientation Not on file 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 file Not on file [...] Info) Description 02/17/2025 10:15 AM CDT Telemedicine [facility] [address] [place] [address] Jack Dukes MD [address] [place] [address] 08/25/2025 2:00 PM FIRE CREW WORKER Office Visit [facility] Oncology Services [address] [place] [address] Phan Grant MD [address] [place] [address] Discharge Disposition: Discharged to home or Selfcare documented as of this encounter Visit Diagnoses Diagnosis 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) documented in this encounter Care Teams Digital Media Associate Relationship Specialty Start Date End Date Arianne Alarcon APRN, ROMEL [address] [place] [address] PCP - General Family Medicine 08/29/16 Jack Dukes MD [address] [place] [address] Consulting Physician Neurology 08/21/16 Lito Chatterjee MD [address] [place] [address] Consulting Physician General Surgery 04/27/19 Gustabo Falk MD [address] [address] Consulting Physician Radiation Oncology 04/27/19 Amrit Goddard MD #[address] [address] Consulting Physician General Surgery 06/08/19 Phan Grant MD [address] [place] [address] Consulting Physician Medical Oncology 02/16/20 documented as of this encounter
--- OUTSIDE RECORDS SUMMARY | 2025-02-11 11:16 | XMS_ITS | Encounter Summary ---
Author Organization [facility] Address [address] [place] [address] Phone Care Team Providers Care Christmas Bell Ringer Name Role Phone Jack Dukes MD Unavailable [phone] Arianne Alarcon APRN, FRUIT GRADING SUPERVISOR Primary Care Provider [phone] Lito Chatterjee MD Unavailable [phone] Gustabo Falk MD Unavailable [phone] Amrit Goddard MD Unavailable Phan Grant MD Unavailable [phone] Reason for Visit * Reason Comments Medication Refill Encounter Details Date Type Department Care Team (Late st Contact Info) Description 11/17/2020 Refill [facility] - [place] [address] [place] [address] Jack Dukes MD [address] [place] [address] Medication Refill Social History Tobacco Use Types Packs/Day Years Used Date Smoking Tobacco: Never Smokeless Tobacco: Never Alcohol Use Standard Drinks/Week Comments No 0 (1 standard drink = 0.6 oz pur e alcohol) Comments No Sex and Gender Information Value Date Recorded Sex Assigned at Not on file Legal Sex Female 2:52 AM STONEMASON APPRENTICE Gender Identity Not on file Sexual Orientation Not on file 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 file Not on file [...] Description 02/17/2025 10:15 AM CDT Telemedicine [facility] - Neurology [facility] #[address] [place] [address] Jack Dukes MD [address] [place] [address] 08/25/2025 2:00 PM STONEMASON APPRENTICE Office Visit [facility] Oncology Services [address] [place] [address] Phan Grant MD [address] [place] [address] Discharge Disposition: Discharged to home or Selfcare documented as of this encounter Visit Diagnoses Diagnosis Seizures (HCC) Other convulsions documented in this encounter Care Teams Christmas Bell Ringer Relationship Specialty Start Date End Date Arianne Alarcon APRN, ROMEL [address] [place] [address] PCP - General Family Medicine 08/29/16 Jack Dukes MD [address] [place] [address] Consulting Physician Neurology 08/21/16 Lito Chatterjee MD [address] [place] [address] Consulting Physician General Surgery 04/27/19 Gustabo Falk MD [address] [address] Consulting Physician Radiation Oncology 04/27/19 Amrit Goddard MD [address] [address] Consulting Physician General Surgery 06/08/19 Phan Grant MD [address] [place] [address] Consulting Physician Medical Oncology 02/16/20 documented as of this encounter
--- OUTSIDE RECORDS SUMMARY | 2025-02-11 11:16 | XMS_ITS | Encounter Summary ---
Author Organization [facility] Address [address] [facility] [place] [address] Phone Care Team Providers Care Screener And Blender Operator Name Role Phone Jack Dukes MD Unavailable [phone] Arianne Alarcon APRN, CNP Primary Care Provider [phone] Lito Chatterjee MD Unavailable [phone] Gustabo Falk MD Unavailable [phone] Amrit Goddard MD Unavailable Phan Grant MD Unavailable [phone] Reason for Visit * Reason Comments Medication Refill Encounter Details Date Type Department Care Team (Late st Contact Info) Description 06/20/2020 [facility] [address] [place] [address] Phan Grant MD [address] [place] [address] Medication Refill Social History Tobacco Use Types Packs/Day Years Used Date Smoking Tobacco: Never Smokeless Tobacco: Never Alcohol Use Standard Drinks/Week Comments No 0 (1 standard drink = 0.6 oz pur e alcohol) Comments No Sex and Gender Information Value Date Recorded Sex Assigned at Not on file Legal Sex Female 2:52 AM TANYARD WORKER Gender Identity Not on file Sexual Orientation Not on file 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 No / Unsure 06/08/2020 9:05 AM TANYARD WORKER documented as of this encounter Miscellaneous Notes * Telephone Encounter - Nikki Martin RN - 06/21/2020 2:16 PM TANYARD WORKER Lorazepam called into pharmacy previous refill not received by pharmacy ARD WORKER documented in this encounter Plan of Treatment Upcoming Encounters Date Type Department Care Team (Late st Contact Info) Description 02/17/2025 10:15 AM CDT Telemedicine [facility] Neurology [facility] #[address] [place] [address] Jack Dukes MD [address] [place] [address] 08/25/2025 2:00 PM TANYARD WORKER Office Visit [facility] Oncology Services [address] [place] [address] Phan Grant MD [address] [place] [address] Discharge Disposition: Discharged to home or Selfcare documented as of this encounter Visit Diagnoses Not on filedocumented in this encounter Care Teams Screener And Blender Operator Relationship Specialty Start Date End Date Arianne Alarcon APRN, PIPE SUPERVISOR [address] [place] [id number] PCP - General Family Medicine 08/29/16 Jack Dukes MD [address] [place] [address] Consulting Physician Neurology 08/21/16 Lito Chatterjee MD [address] [place] [address] Consulting Physician General Surgery 04/27/19 Gustabo Falk MD [address] [place] [address] Consulting Physician Radiation Oncology 04/27/19 Amrit Goddard MD #[address] [address] Consulting Physician General Surgery 06/08/19 Phan Grant MD [address] [place] [address] Consulting Physician Medical Oncology 02/16/20 documented as of this encounter
--- OUTSIDE RECORDS SUMMARY | 2025-02-11 11:16 | XMS_ITS | Encounter Summary ---
Author Organization [facility] Address [address] [place] [address] Phone Care Team Providers Care Lead Front Desk Agent Name Role Phone Jack Dukes MD Unavailable [phone] Arianne Alarocn APRN, ELECTRIC RAZOR MECHANIC Primary Care Provider [phone] Lito Chatterjee MD Unavailable [phone] Gustabo Falk MD Unavailable [phone] Amrit Goddard MD Unavailable Phan Grant MD Unavailable [phone] Reason for Visit * Reason Comments Medication Refill Encounter Details Date Type Department Care Team (Late st Contact Info) Description 12/08/[address] 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 - Neurology [facility] [address] [place] [address] Jack Dukes MD [address] [place] [address] 08/25/2025 2:00 PM RAILROAD ENGINEER Office Visit [facility] Oncology Services [address] [place] [address] Phan Grant MD [address] [place] [address] Discharge Disposition: Discharged to home or Selfcare documented as of this encounter Visit Diagnoses Diagnosis Seizures (HCC) Other convulsions documented in this encounter Care Teams Lead Front Desk Agent Relationship Specialty Start Date End Date Arianne Alarcon APRN, ROMEL [address] [place] [address] PCP - General Family Medicine 08/29/16 Jack Dukes MD [address] [place] [address] Consulting Physician Neurology 08/21/16 Lito Chatterjee MD [address] [place] [address] Consulting Physician General Surgery 04/27/19 Gustabo Falk MD [address] [address] Consulting Physician Radiation Oncology 04/27/19 Amrit Goddard MD #[address] [address] Consulting Physician General Surgery 06/08/19 Phan Grant MD [address] [place] [address] Consulting Physician Medical Oncology 02/16/20 documented as of this encounter
--- OUTSIDE RECORDS SUMMARY | 2025-02-11 11:17 | XMS_ITS | Patient Health Record ---
Author Organization [facility] access hospital Address [address] [place] [address] Care Team Providers Care Resin Mixer Name Role Phone Pavithra Castillo Primary Care Provider [phone] [facility], Adult ROLLY Unavailabl e [phone] Habgerardo, Arif Unavailable [phone] Edinson Miller Unavailable [phone] Gisela Patton Unavailable [phone] Natalie Martinez Unavailable [phone] Ayesha Hill Unavailable [phone] Edinson Garay Unavailable [phone] Allergies Allergen (clinical drug ingredient) Drug/Non Drug [...] neg BUP POS TCA neg FTY neg CBC With Differential/Platel et* (Not yet reviewed by provider) Interpretation: Performing Lab:[facility] [place], [address] [facility], [place], Phone - [phone], Director - Earline Notes/Report: WBC 6.4 3.4-10.8 x10E3/uL RBC 4.70 3.77-5.28 x10E6/uL Hemoglobin 14.1 11.1-15.9 g/dL Hematocrit 43.6 34.0-46.6 % MCV 93 79-97 fL MCH 30.0 26.6-33.0 pg MCHC 32.3 31.5-35.7 g/dL RDW 13.2 11.7-15.4 % Platelets 275 150-450 x10E3/uL Neutrophils 53 Not Estab. % Lymphs 38 Not Estab. % Monocytes 7 Not Estab. % Eos 2 Not Estab. % Basos 0 Not Estab. % Neutrophils (Absolute) 3.4 1.4-7.0 x10E3/uL Lymphs (Absolute) 2.4 0.7-3.1 x10E3/uL Monocytes(Absolute) 0.5 0.1-0.9 x10E3/uL Eos (Absolute) 0.1 0.0-0.4 x10E3/uL Baso (Absolute) 0.0 0.0-0.2 x10E3/uL Immature Granulocytes 0 Not Estab. % Immature Grans (Abs) 0.0 0.0-0.1 x10E3/uL CMP 14 Comprehensive Metabol ic Panel* (Not yet reviewed by provider) Interpretation: Performing Lab:[facility] [place], [address] [facility], [place], Phone - [phone], Director - Earline Notes/Report: Glucose 98 70-99 mg/dL BUN 10 6-24 mg/dL Creatinine 0.95 0.57-1.00 mg/dL eGFR 74 >59 mL/min/1.73 BUN/Creatinine Ratio 11 9-23 Sodium 139 134-144 mmol/L Potassium 5.0 3.5-5.2 mmol/L Specimen received hemolyzed. Value may be increased by hemolysis. Clinical correlation indicated. Chloride 100 96-106 mmol/L Carbon Dioxide, Total 23 20-29 mmol/L Calcium 9.5 8.7-10.2 mg/dL Protein, Total 7.0 6.0-8.5 g/dL Albumin 4.0 3.9-4.9 g/dL Globulin, Total 3.0 1.5-4.5 g/dL Bilirubin, Total 0.4 0.0-1.2 mg/dL Alkaline Phosphatase 91 44-121 IU/L AST (SGOT) 36 0-40 IU/L ALT (SGPT) 27 0-32 IU/L HIV Screen *HIV 1, 2 Ab, p24 Ag ([id number]) (Not yet reviewed by provider) Interpretation: [facility]forming [facility], [address] [facility], Phone - [phone], Director - Roberts Chapel Notes/Report: HIV Ab/p24 Ag Screen Non Reactive Non Reactive HIV-1/HIV-2 antibodies and HIV-1 p24 antigen were NOT detected. There is no laboratory evidence of HIV infection. HIV Negative QuantiFERON-TB Gold Plus ([id number] 6218) (Not yet reviewed by provider) Interpretation: Performing Lab:[facility] [address] [facility], Phone - [phone], Director - Roberts Chapel Notes/Report: QuantiFERON Incubation TNP Test not performed. No specimen received. QuantiFERON-TB Gold Plus TNP Dejah t not performed Test, Urine Reviewed date:02/08/2025 02:21:29 PM Interpretation: [...] phone, visiting friends or family, going to mandaen or club meetings) More than 5 times a week How stressed are you? Stress is when someone feels tense, nervous, anxious, or can\t sleep at night because their mind is troubled Quite a bit In the past year have you sp ent more than 2 nights in a row in a nursing home, residential, jail center, or juvenile correctional facility? No Are [...] Status Risk Notes Problem Major depressive disorder (251144479) Major depressive disorder (F32.9) Active confirmed Problem Psychoactive substance dependence (3425922) Chemical dependency (F19.20) Active confirmed Problem Overweight (686074950) Over weight (E66.3) Active confirmed Problem Opioid dependence (83657438) Opiate dependence (F11.20) Active confirmed Problem Alcohol use disorder (8038385713) Alcohol use disorder (F10.99) Active confirmed Problem Substance dependence (5921292869) Substance dependence (F19.20) Active confirmed Problem Chemical abuse (F19.10) Active confirmed Problem Alcohol abuse (13444773) AA (alcohol abuse) (F10.10) Active confirmed Problem Adult health examination (497719791) Adult general medical exam (Z00.00) Active confirmed [...] 02/08/2025 Encounters Encounter Location Date Provider Diagnosis [facility] [address] [address] 02/08/2025 Ayesha Hill AA (alcohol abuse) F10.10 [place] [address] [place] [address] 02/10/2025 Edinson Garay [facility] [address] [place] [address] 01/20/2025 Edinson Garay Alcohol use disorder F10.99 ; Adult general medical exam Z00.00 and Over weight E66.3 [facility] [address] [place] [address] 01/25/2025 Gisela Patton [facility] [place] [address] 01/28/2025 Edinson Garay Intoxication by drug, with unspecified complication F19.929 [address] [place] [address] [place] [address] 02/08/2025 Pavithra Castillo Routine general medical examination at a [facility] care facility Z00.00 and Over weight E66.3 [facility] [address] [place] [address] 02/10/2025 Pavithra Castillo [address] [address] 03/03/2024 Edinson Miller [address] [address] 12/10/2024 Maximiliano Grady Assessments Encounter Date Diagnosis (ICD Code) Assessment [...] additional service needs. 01/20/2025 Other The patient mehran aparicio her medical history and her ETOH use history. With the known facts from this and her recent seizure within 6 months, last drink this AM, and likelihood of detox on the unit I have made the decision to recommend she go to [facility] to detox while under close supervision. The [...] Screen *HIV 1, 2 Ab, p24 Ag ([id number]) 02/08/2025 CBC With Differential/Platelet* 02/09/20 CMP 14 Comprehensive Metabolic Panel* QuantiFERON-TB Gold Plus (235658) 2024 Next Appt Details Provider Name:Kai Anaya , 02/16/2025 11:00:00 AM, [address], [place], [address], Insurance Providers Payer Name Payer Address Payer Phone Subscriber Number Group Number Insured Name Patient Relationship to Insured Coverage Start Date Coverage End Date [employer] [address] [place] [address] [id number] Lu Christy Self - patient is the insured 5 [employer] [address] [place] [address] [id number] Lu Christy Self - patient is the insured 5 Medications Administered Medication Instructions Date of Administration Dosage Notes Vivitrol 02/21/2016 380 mg exp December 2017 Manufact by Eddie cardenas well. Sample used Vivitrol 03/20/2016 380 mg Exp-01/03/2018 Office Automation Clerk-Eddie Client tolerated injection well. Vivitrol 04/17/2016 380 mg Exp December 2017 Manufact by Eddie cardenas well. Vivitrol 05/29/2016 380 mg Exp 10/2018 Man ufact by Eddie Pt theresa well. Medical (General) History Medical History History ICD Code seizures from head trauma 2007 gastric ulcer kidney stones 2006 UTI depression alcohol use disorder Surgical History Surgery Date(Month/Year) appendectomy 1993 cystectomy 2001 & 2002 kidney stents 2005 Double mastectomy 2021 Hospitalization History Reason Date(Month/Year) childbirth Feb 2017 seizure 2014 kidney stent placement 2005
--- OUTSIDE RECORDS SUMMARY | 2025-02-11 11:17 | XMS_ITS ---
Author Organization [facility] Address [address] [place] [address] Phone Care Team Providers Care Municipal Court Judge Name Role Phone Jack Dukes MD Unavailable [phone] Arianne Alarcon APRN, INTERNET MARKETING SPECIALIST Primary Care Provider [phone] Lito Chatterjee MD Unavailable [phone] Gustabo Falk MD Unavailable [phone] Amrit Goddard MD Unavailable Phan Grant MD Unavailable [phone] Active Problems * This document contains information [...] from 04/27/2019:Stage IIB(cT2, cN0, cM0, G3, ER+, [place]-, HER2-) - Signed by Gustabo Falk MD on 04/28/2019 Pathologic stage from 04/27/2019:Stage IIB(pT2, pN1mi(sn), cM0, G3, ER+, [place]-, HER2-) - Unsigned Premenopausal patient 04/22/2019 Seizures [...]
--- OUTSIDE RECORDS SUMMARY | 2025-02-11 11:17 | XMS_ITS | Encounter Summary ---
Author Organization [facility] Address [address] [place] [address] Phone Care Team Providers Care Ict Help Desk Technician Name Role Phone Jack Dukes MD Unavailable [phone] Arianne Alarcon APRN, PAPER INSERTER Primary Care Provider [phone] Lito Chatterjee MD Unavailable Gustabo Falk MD Unavailable Amrit Goddard MD Unavailable Phan Grant MD Unavailable Encounter Details Date Type Department Care Team (Latest Contact Info) Description 08/26/2024 Transcribe Orders [facility] Laboratory Services [address] [place] [id number] Arianne Alarcon APRN, PAPER INSERTER [address] [place] [address] Mixed hyperlipidemia (Primary Dx); Alcohol [...] on file Legal Sex Female 2:52 AM YARD SWITCH OPERATOR Gender Identity Not on file Sexual Orientation Not on file 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 Not on file Not on file Not on file documented as of this encounter Plan of Treatment Upcoming Encounters Date Type Department Care Team (Late st Contact Info) Description 02/17/2025 10:15 AM CDT Telemedicine [facility] [address] [place] [address] Jack Dukes MD [address] [place] [address] 08/25/2025 2:00 PM YARD SWITCH OPERATOR Office Visit [facility] Oncology Services [address] [place] [address] Phan Grant MD [address] [place] [address] Discharge Disposition: Discharged to home or Selfcare [...] 12:00 AM CDT) Blood us Arianne Alarcon SUPERVISOR INVENTORY MERCHANDISING, PAPER INSERTER CHEMISTRY ORDERABLES Margarita l Result SCAN * COMPLETE BLOOD COUNT (CBC) WITH DIFF (10/29/2024 12:00 AM CDT) Blood Arianne Alarcon APRN, CNP HEMATOLOGY ORDERABLES Fin al Result Performing Organization Address [facility] de Phone Number SCAN * LIPID PANEL (10/29/2024 12:00 AM CDT) CHOLESTEROL 182 SCAN HDL CHOLESTEROL 49 SCAN LDL 101 SCAN Blood Arianne Alarcon APRN, CNP CHEMISTRY ORDERABLES Margarita l Result Performing Organization Address [facility] de Phone Number SCAN documented in this encounter Visit Diagnoses Diagnosis Mixed hyperlipidemia- Primary Alcohol abuse, uncomplicated Gastroesophageal reflux disease without esophagitis Esophageal reflux documented in this encounter Care Teams Ict Help Desk Technician Relationship Specialty Start Date End Date Arianne Alarcon APRN, CNP [address] [place] [address] PCP - General Family Medicine 08/29/16 Jack Dukes MD [address] [place] [address] Consulting Physician Neurology 08/21/16 Lito Chatterjee MD [address] [place] [address] Consulting Physician General Surgery 04/27/19 Gustabo Falk MD [address] [place] [address] Consulting Physician Radiation Oncology 04/27/19 Amrit Goddard MD [address] [facility] [address] [address] Consulting Physician General Surgery 06/08/19 Phan Grant MD [address] [place] [address] Consulting Physician Medical Oncology 02/16/20 documented as of this encounter
--- OUTSIDE RECORDS SUMMARY | 2025-02-11 11:17 | XMS_ITS ---
Author Organization [facility] Address [address] [place] [address] Care Team Providers Care Bow Machine Operator Name Role Phone Pavithra Castillo Primary Care Provider [facility], Adult ROLLY Unavailabl e [phone] REASON FOR VISIT ER tracking info Social History Sex Assigned At : Social History Observation Description Sex Assigned At Female Encounters Encounter Location Date Provider Diagnosis [facility] [address] [place] [address] 02/10/2025 Pavithra Castillo Plan Of Treatment Next Appt Details Provider Name:Kai alarcon, 02/16/2025 11:00:00 AM, [address], [place], [address], Progress Notes * Lu NGUYỄNDOB: 7 (49 yo F)Acc No.[id number]:02/10/2025 UNLOCKED PROGRESS NOTE Patient: Ashley WALKERdi :1975 A ge:49 Y S ex:Female Address:[place], [address] Subjective: * Chief Complaints: * E R tracking info * HPI: E R/Hospital Follow-up: ER/Hopsital/Urgent Care follow-up. Notification of ER/hospital visit from: O ther: Pt. was sent to the ER/Hospital ([facility]) v ia EMS due to having a seizure while having her labs completed. . If instructed by nurse/provider, did the pt go to ER/UC? E R/Urgent Care follow-through Y es . Date of ER/urgent visit or hospitalization: . Reason for the Visit: W itnessed seizure. Visit Type and Location: . . Disclosure signed to obtain records: . . Records Requested Date D ate, First Attempt: . D ate, Second Attempt: . D ate, Third Attempt: . Records Received: D ate Records Received . Medication Changes: . . Signficant labs, imaging or other results: . . New diagnoses? . . Provider recommended f/u: . . ER/Hospital F/U appointment with [facility]: C [facility] f/u appointment date: . Appointment Kept? D id the patient keep the appointment with [facility]? . [facility] . * Medical History: * Surgical History: * Hospitalization/Major Diagno stic Procedure: * Medications: Objective: * Vitals: * Physical Examination: Assessment: Plan: * Treatment: * Procedure Codes: C HS01 ER/hospitalization continuity of care * * Date: History and Physical Notes * HPI (History of Present Illness) Category Sub-Category Detail Notes Category Not es ER/Hospital Follow-up Visit Type and Location: . Disclosure signed to obtain records: . Records Requested Date Date, First Attempt:: . Date, Second Attempt:: . Date, Third Attempt: : . Records Received: Date Records Received: . Medication Changes: . Signficant labs, imaging or other result s: . New diagnoses? . Provider recommended f/u: . ER/Hospital F/U appointment with [facility]: [facility] f/u appointment date:: . Notification of ER/hospital visit from: Other: Pt. was sent to the ER/Hospital ([facility]) via EMS due to having a seizure while having her labs completed. Reason for the Visit: Witnessed seizure Date of ER/urgent visit or hospitalizati on: 02/10/2025 Nurse completing documentation [facility] Sole rosas: . [facility] Nurses: . If instructed by nurse/supriya an, did the pt go to ER/UC? ER/Urgent Care follow-through: Yes . Appointment Kept? Did the patient keep the appointment with [facility]?: .
--- OUTSIDE RECORDS SUMMARY | 2025-02-11 11:17 | XMS_ITS ---
Author Organization [facility] Address [address] [place] [address] Care Team Providers Care Glory Hole Tender Name Role Phone Pavithra Castillo Primary Care Provider [phone] [facility], Adult ROLLY Unavailabl e [phone] Edinson Garay [phone] REASON FOR VISIT Admission labs Social History Sex Assigned At : Social History Observation Description Sex Assigned At Female Encounters Encounter Location Date Provider Diagnosis [facility] [address] [place] [address] 02/10/2025 Edinson Garay Plan Of Treatment Next Appt Details Provider Name:Kai Michael Anaya , 02/16/2025 11:00:00 AM, [address], [place], [address], Progress Notes * Lu NGUYỄNDOB: 7 (49 yo F)Acc No.[id number]:02/10/2025 UNLOCKED PROGRESS NOTE Patient: Ashley WALKERdi Provider: Sole Garay APN :1975 A ge:49 Y S ex:Female Date:02/10/2025 Address:[address], [place] Pcp:Pavithra Castillo Check In:08:56 AM ASSISTANT PASSENGER LOCOMOTIVE ENGINEER Subjective: * Chief Complaints: * 1 . Admission labs. * Medical History: Objective: * Vitals: Assessment: Plan: * Treatment: * * Electronic signature of Maxime Garay on 02/11/2025 at 11:17 AM CDT Sign off status: Pending * Provider: Sole Garay APN Date: 02/10/2025 Generated for Carroll moya/So/Emil on: 0 02/11/2025 11:17 AM CDT
--- OUTSIDE RECORDS SUMMARY | 2025-02-11 11:17 | XMS_ITS | Clinical Summary ---
Author Organization [facility] Address [address] [place] [address] Phone Care Team Providers Care Driver Supervisor Name Role Phone Jack Dukes MD Unavailable [phone] Arianne Alarcon APRN, TRUCK DISPATCHER Primary Care Provider [phone] Lito Chatterjee MD Unavailable [phone] Gustabo Falk MD Unavailable [phone] Amrit Goddard MD Unavailable Phan Grant MD Unavailable [phone] Allergies Active Allergy Reactions Criticality Noted Date [...] from 04/27/2019:Stage IIB(cT2, cN0, cM0, G3, ER+, [place]-, HER2-) - Signed by Gustabo Falk MD on 04/28/2019 Pathologic stage from 04/27/2019:Stage IIB(pT2, pN1mi(sn), cM0, G3, ER+, [place]-, HER2-) - Unsigned Premenopausal patient 04/22/2019 Seizures [...] Type Department Care Team Description 11/12/2024 Telephone [facility] - Neurology - [place] [address] [place] [address] Jack Dukes MD [facility]/12[facility]20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 Not on file Not on file Not on file Last Filed Vital Signs Vital Sign Reading Time Taken Comments Blood Pressure 131/87 08/26/2024 1:50 PM BROKERAGE PURCHASE AND SALE CLERK Pulse 92 08/26/2024 1:50 PM BROKERAGE PURCHASE AND SALE CLERK Temperature 36.6 C (97.9 F) 08/26/2024 1:50 PM BROKERAGE PURCHASE AND SALE CLERK Respiratory Rate 18 08/26/2024 1:50 PM BROKERAGE PURCHASE AND SALE CLERK Oxygen Saturation 98% 08/26/2024 1:50 PM BROKERAGE PURCHASE AND SALE CLERK Inhaled Oxygen Concentration - - Weight 67.3 kg (148 lb 4.8 oz) 08/26/2024 1:50 P M BROKERAGE PURCHASE AND SALE CLERK Height 165.1 cm (5' 5) 07/09/2024 8:05 PM BROKERAGE PURCHASE AND SALE CLERK Body Mass Index 24.68 07/09/2024 8:05 PM BROKERAGE PURCHASE AND SALE CLERK Plan of Treatment Upcoming Encounters Date Type Department Care Team (Late st Contact Info) Description 02/17/2025 10:15 AM CDT Telemedicine [facility] Neurology [facility] [address] [place] [address] Jack Dukes MD [address] [place] [address] 08/25/2025 2:00 PM BROKERAGE PURCHASE AND SALE CLERK Office Visit [facility] Oncology Services [address] [place] [address] Phan Grant MD [address] [place] [address] Discharge Disposition: Discharged to home or Selfcare [...] this topic Medical Devices Implanted Type Area Ground Instructor Basic Device Identifier Shelf Expiration Date Model / Serial / Lot Port Implantable Infusion Powerport Mri Airguard Chronoflex 8fr 1 Lumen Attachable Cath Intermediate - [id number] Implanted:Qty: 1 on 05/11/2019 by Lito Chatterjee MD at [facility] IMPLANT Left: Chest BARD ACCESS SYSTEMS 11/03/2020 [id number] / [id number] / [id number] Procedures Procedure Name Priority Date/Time Associated Diagnosis [...] Comparison is made to exam dated: 03/15/2019 [facility]. BREAST TISSUE:There are scattered fibroglandular densities [...] signed by: Mya Patel M.D. ll/:10/12/2019 15:03:41 Field Identification Specialist: Lisa Eaton)(Walter), [facility] letter sent: Birad 3 Followup Reading location: [facility] OVERALL STUDY BIRADS: 3 Probably benign Procedure [...] Comparison is made to exam dated: 03/15/2019 [facility]. BREAST TISSUE:There are scattered fibroglandular densities [...] signed by: Mya Patel M.D. ll/:10/12/2019 15:03:41 Field Identification Specialist: Lisa Eaton)(M), [facility] letter sent: Birad 3 Followup Reading location: [facility] OVERALL STUDY BIRADS: 3 Probably benign us Lito Chatterjee MD IMG MAMMO ORDERABLES Final Result from Last 3 Months or Most Recently Relevant to Health Maintenance Insurance [place] Advance Directives Documents on File Type Date Recorded Patient Pack Worker Expl anation Power of Bird Sitter for Health Care 05/27/2019 11:53 AM POA-HC 05/27/19 Advance Care Planning Discussion 05/27/2019 11:33 AM ACP DISCUSSION RECOR D 05/27/19 Care Teams Driver Supervisor Relationship Specialty Start Date End Date Arianne Alarcon APRN, CNP [address] [place] [address] PCP - General Family Medicine 08/29/16 Jack Dukes MD [address] [place] [address] Consulting Physician Neurology 08/21/16 Lito Chatterjee MD [address] [place] [address] Consulting Physician General Surgery 04/27/19 Gustabo Falk MD [address] [place] [address] Consulting Physician Radiation Oncology 04/27/19 Amrit Goddard MD [address] [address] Consulting Physician General Surgery 06/08/19 Phan Grant MD [address] [place] [address] Consulting Physician Medical Oncology 02/16/20
--- OUTSIDE RECORDS SUMMARY | 2025-02-11 11:17 | XMS_ITS ---
Author Organization [facility] Address [address] [place] [address] Care Team Providers Care Co Founder And President Name Role Phone Ana Mariaarron Karlafrantz Primary Care Provider [facility], Adult ROLLY Unavailabl e [phone] Ayesha Hill Unavailable [phone] REASON FOR VISIT aT Social History Tobacco [...] phone, visiting friends or family, going to pentecostal or club meetings) More than 5 times a week How stressed are you? Stress is when someone feels tense, nervous, anxious, or can\t sleep at night because their mind is troubled Quite a bit In the past year have you sp ent more than 2 nights in a row in a mcc, senior living, halfway center, or juvenile correctional facility? No Are [...] Problem Status W/U Status Risk Notes Problem Alcohol abuse (91240971) AA (alcohol abuse) (F10.10) Active confirmed Encounters Encounter Location Date Provider Diagnosis [address] [place] [address] 02/08/2025 Ayesha Hill AA (alcohol abuse) F10.10 [...] Reason: Provider Name:Kai alarcon, 02/16/2025 11:00:00 AM, [address], [place], [address], Progress Notes * Snehal NGUYỄN: 7 (49 yo F)Acc No.[id number]:02/08/2025 UNLOCKED PROGRESS NOTE Patient: Lu WALKER Provider: Walter Hill :1975 A ge:49 Y S ex:Female Date:02/08/2025 Address:[address] [facility] Pcp:Pavithra Castillo Subjective: * Chief Complaints: * 1 . [...] health concerns when in drug court with [place]. S ubstance Use: Current Use Patterns S [...] es, W as It Completed Today Using SmartForm? Y es.? a TBC For Substance Use [...] Findings P ositive, F ollow-Up for Depression P arpit is admitted to a [facility] unit where their mental health is [...] phone, visiting friends or family, going to pentecostal or club meetings) M ore than 5 times a week, H ow stressed are you? Stress is when someone feels tense, nervous, anxious, or can\t sleep at night because their mind is troubled Q uite a bit, I n the past year have you spent more than 2 nights in a row in a mcc, senior living, halfway center, or juvenile correctional facility? N o, [...] E nabling Services Provided? Y es, P jett specify C ase Management Follow-up. 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 More recently using cocaine. HIV Risk Assessment Screening Required for Residential Admits Assessment of Social Determinants of Health:: Has A PRAPARE Been Completed In The Past Year? Has a PRAPARE Been Completed In The Past Year?: Yes Was It Completed Today Using SmartBombBomb?: Yes [facility] Who Is Your [...]
--- OUTSIDE RECORDS SUMMARY | 2025-02-11 11:17 | XMS_ITS | Continuity of Care Document ---
Author Organization [facility] Address [address] [place] [address] [place] [address] Phone Care Team Providers Care Squilgeer Name Role Phone Massimo Herring MD Unavailable [...] Diagnoses Date Provider Providers Copied on Encounter [facility], [address] [place], [place], [id number], tel:[phone] [facility] Medicine No Information [address] [facility] [place], [place], [id number] , [place]. tel:[phone] Referring Provider: Massimo Herring, [address] [place], [place], [id number]. tel:[phone] OFFICE/OUTPAT IENT VISIT, [facility], [address], [place], [id number], tel:[phone] [facility] Seizure (chief complaint) depression (chief complaint) ADD (chief complaint) back pain (chief complaint) Epilepsy, unspecified, without mention of intractable epilepsyLumbago [address], [place], [id number] , . tel:[phone] Referring Provider: Massimo Herring, [address] [place], [place], [id number]. tel:[phone] Family History Family Member Type Diagnosis Age [...]
--- OUTSIDE RECORDS SUMMARY | 2025-02-11 11:17 | XMS_ITS | Encounter Summary ---
Author Organization [facility] Address [address] [place] [address] Phone Care Team Providers Care Manager Requirements Name Role Phone Jack Dukes MD Unavailable [phone] Arianne Alarcon APRN, TRUCK GREASER Primary Care Provider [phone] Lito Chatterjee MD Unavailable [phone] Gustabo Falk MD Unavailable [phone] Amrit Goddard MD Unavailable Phan Grant MD Unavailable [phone] Reason for Visit * Reason Comments Medication Refill Encounter Details Date Type Department Care Team (Late st Contact Info) Description 09/10/2023 Refill [facility] - Neurology [facility] [address] [place] [address] Jack Dukes MD [address] [place] [address] Medication Refill Social History Tobacco Use Types Packs/Day Years Used Date Smoking Tobacco: Never Smokeless Tobacco: Never Alcohol Use Standard Drinks/Week Comments No 0 (1 standard drink = 0.6 oz pur e alcohol) Comments No Sex and Gender Information Value Date Recorded Sex Assigned at Not on file Legal Sex Female 2:52 AM SITE COORDINATOR Gender Identity Not on file Sexual Orientation Not on file 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 Not on file Not on file [...] 90 days and meeting all other requirements COORDINATOR documented in this encounter Plan of Treatment Upcoming Encounters Date Type Department Care Team (Late st Contact Info) Description 02/17/2025 10:15 AM CDT Telemedicine [facility] Neurology [facility] [address] [place] [address] Jack Dukes MD [address] [place] [address] 08/25/2025 2:00 PM SITE COORDINATOR Office Visit [facility] On[facility] Services [address] [place] [address] Phan Grant MD [address] [place] [address] Discharge Disposition: Discharged to home or Selfcare documented as of this encounter Visit Diagnoses Diagnosis Seizures (HCC) Other convulsions documented in this encounter Care Teams Manager Requirements Relationship Specialty Start Date End Date Agnes ArianneLISA king CNP [address] [place] [address] PCP - General Family Medicine 08/29/16 Jack Dukes MD [address] [place] [address] Consulting Physician Neurology 08/21/16 Lito Chatterjee MD [address] [place] [address] Consulting Physician General Surgery 04/27/19 Gustabo Falk MD [address] [place] [address] Consulting Physician Radiation Oncology 04/27/19 [facility]rit [facility]ard MD [address] [facility] [address] [address] Consulting Physician General Surgery 06/08/19 Phan Grant MD [address] [place] [address] Consulting Physician Medical Oncology 02/16/20 documented as of this encounter
--- OUTSIDE RECORDS SUMMARY | 2025-02-11 11:17 | XMS_ITS ---
Author Organization [facility] Address [address] [place] [address] Care Team Providers Care Glove Sewer Name Role Phone Arianne Alarcon NP Primary Care Provider [phone] Derrick Walker MD Unavailable [phone] Active Problems Problem Noted Date Diagnosed Date Alcohol withdrawal syndrome without complication 01/26/2025 Alcohol withdrawal syndrome with complication Alcohol withdrawal syndrome, uncomplicated 08/04 Hx of breast cancer 07/31/2020 Overview (07/31/2020): Added automatically from request for surgery [id number] History of breast cancer 02/10/2020 Overview (02/10/2020): Added automatically from request for surgery [id number] Anxiety 02/08/2020 Sensory neuropathy 02/08/2020 Nodule of [...]
--- OUTSIDE RECORDS SUMMARY | 2025-02-11 11:17 | XMS_ITS | Clinical Summary ---
Author Organization [facility] Address [address] [place] [address] Care Team Providers Care Monitor Worker Name Role Phone Alarcon, Arianne FLORES Primary Care Provider [phone] Source Comments [facility],non-owned Affiliates and Associated Physician Practices is amultiple site organization consisting of ambulatory clinics and hospital sitesin [place], [place], [place] and [place]. This disclosure is being madepursuant to the Care Everywhere program and may not contain all information available regarding this patient. Last updated 18.[facility] Allergies Active Allergy Reactions Criticality Noted Date [...] PM CDT Legal Sex Female 6:31 AM WELDER OXYHYDROGEN Gender Identity Female 05/02/2022 12:48 PM CDT [...] - 26 mg/dL 03/07/2022 5:42 AM CDT [facility] Creatinine 0.70 0.56 - 0.96 mg/dL 03/07/2022 5:42 AM T [facility] Sodium 145 136 - 145 mmol/L 03/07/2022 5:42 AM T [facility] Potassium 3.9 3.5 - 4.5 mmol/L 03/07/2022 5:42 AM [facility] Chloride 112(H) 98 - 107 mmol/L 03/07/2022 5:42 AM [facility] CO2 22 22 - 29 mmol/L 03/07/2022 5:42 AM [facility] Glucose 131(H) 70 - 115 mg/dL 03/07/2022 5:42 AM [facility] Calcium 8.3(L) 8.4 - 10.2 mg/dL 03/07/2022 5:42 AM [facility] Anion Gap 15 8 - 18 03/07/2022 5:42 AM [facility] BUN/Creatinine Ratio 14 7 - 23 03/07/2022 5:42 AM [facility] Osmolality Calculated 301(H) 270 - 300 mOsm/kg 03/07/2022 5:42 AM [facility] eGFR by CKD-EPI >90 >=90 mL/min/1.7 3 m2 03/07/2022 5:42 AM [facility] Blood BLOOD SPECIMEN / Unknown Venipuncture / Unknown 03/07/2022 5:08 AM T 03/07/2022 5:14 AM [facility] Feroz Salazar MD LAB - CHEMISTRY ORDERABLES Final Result [facility] [address] [place] [address], [facility] [phone] from Last 3 Months or Most Recently Relevant to Health Maintenance [place] [address] [address] [facility] Care Teams Monitor Worker Relationship Specialty Start Date End Date Arianne Alarcon APRN-SUEDING AND BUFFING MACHINE OPERATOR [address] [place] [address] PCP - General 10/08/19
--- OUTSIDE RECORDS SUMMARY | 2025-02-11 11:17 | XMS_ITS | Clinical Summary ---
Author Organization [facility] Address [address] [place] [address] Care Team Providers Care Engraver [employer] Name Role Phone Arianne Alarcon NP Primary Care Provider [phone] Derrick Walker MD Unavailable Allergies Active Allergy Reactions Criticality Noted Date [...] (07/31/2020): Added automatically from request for surgery [id number] History of breast cancer 02/10/2020 Overview (02/10/2020): Added automatically from request for surgery [id number] Anxiety 02/08/2020 Sensory neuropathy 02/08/2020 Nodule of [...] Type Department Care Team Description 01/31/2025 Documentation [facility] Case Management [address] [place] [id number] Shanice Serna 01/25/2025 10:58 PM CDT - 01/28/2025 12:56 PM CDT Hospital Encounter [facility] [address] [place] [id number] Sol Yates MD Lun, Yu, MD Smith, Thomas Hamilton, MD Alcohol withdrawal syndrome without complication (HCC) (Primary Dx) Discharge Disposition: Discharge to an IP Rehab facility 01/23/2025 Documentation [facility] [address] [place], [place] [phone] Sheryl Montanez 01/22/2025 AMH Enrollment [facility] [address] [place], [place] [phone] Sheryl Montanez 01/21/2025 Documentation [facility] [address] [place] [phone] Ana Nair 01/20/2025 9:33 PM CDT - 01/23/2025 5:11 PM CDT Hospital Encounter [facility] [address] [place] [address] Gabo Santos MD Sargsyan, Narine, MD Alcohol withdrawal syndrome with complication (HCC) (Primary Dx) Discharge Disposition: Left Against Medical Advice 01/20/2025 Documentation [facility] [address] [place], [place] [phone] Ana Nair from Last 3 Months Immunizations [...] PORTACATH PLACEMENT Left MASTECTOMY 12/24/2019 Bilateral TISSUE RN COMMUNITY PLACEMENT 12/24/2019 Bilateral Removal Left Port a [...] drink = 0.6 oz pur e alcohol) [facility] Utilities Answer Date Recorded In the past 12 months has [employer], gas, oil, or water [employer] threatened to shut off services in your [...] often do you attend chur ch or confucianism services? More than 4 times per year 01/26/2025 Do you belong to any clubs o r organizations such as confucianist groups, unions, fraternal or athletic groups, or [...] any time in the past 12 m [facility], were you homeless or living in a intermediate (including now)? No 01/26/2025 Personal Safety Answer Date Recorded Have you ever been in or are you currently in a harmful physical or emotional relationship or is someone making you feel afraid or unsafe? Denies 01/26/2025 Comments No Sex and Gender Information Value Date Recorded Sex Assigned at Not on file Legal Sex Female 12:33 AM PROGRAM SERVICES PLANNER Gender Identity Female 06/06/2021 8:34 AM PROGRAM SERVICES PLANNER Sexual Orientation Straight 06/06/2021 8: 34 AM PROGRAM SERVICES PLANNER Obstetrics History Last Filed Vital Signs Vital [...] this topic Medical Devices Implanted Type Area Dough Maker Device Identifier Shelf Expiration Date Model / Serial / Lot [employer] 68-120 Natrelle 9cm Style 68mp Smooth Anterior Diaphragm Valve P3cm Latex Free - [id number] - [id number] Implanted:Qty: 1 on 03/16/2021 by Derrick Walker MD at [facility] Breast Left: Breast [employer] 04/09/2024 68-120 / [id number] / [employer] [id number] Alloderm Select [id number] Allograft Regenerative Freeze Dried - [id number] - [id number] Implanted:Qty: 1 on 12/24/2019 by Derrick Walker MD at [facility] Left: Breast [employer] 11/03/2020 [id number] / [id number] / [employer] [id number] Alloderm Select [id number] Allograft Regenerative Freeze Dried - [id number] - [id number] Implanted:Qty: 1 on 12/24/2019 by Derrick Walker MD at [facility] Right: Breast [employer] 10/04/2020 [id number] / [id number] / [employer] Dgimed Ortho Allian [id number] Kershaw Microvascular 2.5mm Ring Pin Protective Cover Jaw Assembly Latex Free - [id number] Implanted:Qty: 1 on 04/06/2020 by Derrick Walker MD at [facility] Right: Breast [employer] 10/13/2024 [id number] / / [employer] [id number] Kershaw Microvascular 2.5mm Ring Pin Protective Cover Jaw Assembly Latex Free - [id number] Implanted:Qty: 1 on 04/06/2020 by Derrick Walker MD at [facility] Left: Breast [employer] [place] Allian 10/23/2024 [id number] / / [id number] [employer] 68-120 Natrelle 9cm Style 68mp Smooth Anterior Diaphragm Valve P3cm Latex Free - [id number] - [id number] Implanted:Qty: 1 on 03/16/2021 by Derrick Walker MD at [facility] Left: Breast [employer] 08/30/2023 68-120 / [id number] / Explanted Type Area Dough Maker Device Identifier Shelf Expiration Date Model / Serial / Lot [employer] Allox2-[id number] Allox2 15x13.8cm Texture Integrate Port Breast P6.4-7.9cm Full - [id number] Implanted:Qty: 1 on 12/24/2019 by Derrick Walker MD at [facility] Explanted:Qty: 1 on 04/06/2020 by Derrick Walker MD at [facility] Breast Left: Breast [employer] 11/03/2024 [id number] / / [employer] Allox2-[id number] Allox2 15x13.8cm Texture Integrate Port Breast P6.4-7.9cm Full - [id number] Implanted:Qty: 1 on 12/24/2019 by Derrick Walker MD at [facility] Explanted:Qty: 1 on 04/06/2020 by Derrick Walker MD at [facility] Right: Breast [employer] 11/03/2024 [...] W MARY ANNE Routine 05/11/2015 11:49 AM PROGRAM SERVICES PLANNER from Last 3 Months or Most Recently Relevant to Health Maintenance Results * eGFR (01/26/2025 5:32 AM CDT) Pathologist [facility] eGFR 73 >=60 mL/min/1. 73 m2 [...] Yates MD LAB BLOOD ORDERABLES nal Result [facility] [address] [facility] [place] [address] * (ABNORMAL) Differential, auto (01/26/2025 5:32 AM CDT) [facility] Neutrophil abs 2.32 1.50 - 6.50 K/cumm Imm gran abs 0.01 0.00 - 0.10 K/cumm [facility] Lymphocyte abs 3.41(H) 0.80 - 3.30 K/cumm [facility] Monocyte abs 0.52 0.20 - 0.80 K/cumm [facility] Eosinophil abs 0.00 0.00 - 0.50 K/cumm [facility] Basophil abs 0.03 0.00 - 0.10 K/cumm [facility] Neutrophil pct 36.8 % [facility] Comment: Interpretive Data Percent cell count reference ranges are not reported, since discordance with absolute values may lead to misinterpretation of CBC data. Current Interpretive Data was last revised on 2017. Imm gran pct 0.2 % [facility] Comment: Interpretive Data Percent cell count reference ranges are not reported, since discordance with absolute values may lead to misinterpretation of CBC data. Current Interpretive Data was last revised on 2017. Lymphocyte pct 54.2 % [facility] Comment: Interpretive Data Percent cell count reference ranges are not reported, since discordance with absolute values may lead to misinterpretation of CBC data. Current Interpretive Data was last revised on 2017. Monocyte pct 8.3 % [facility] Comment: Interpretive Data Percent cell count reference ranges are not reported, since discordance with absolute values may lead to misinterpretation of CBC data. Current Interpretive Data was last revised on 2017. Eosinophil pct 0.0 % [facility] Comment: Interpretive Data Percent cell count reference ranges are not reported, since discordance with absolute values may lead to misinterpretation of CBC data. Current Interpretive Data was last revised on 2017. Basophil pct 0.5 % [facility] Comment: Interpretive Data Percent cell count reference ranges are not reported, since discordance with absolute values may lead to misinterpretation of CBC data. Current Interpretive Data was last revised on 2017. Blood 01/26/2025 5:32 AM CDT 01/26/2025 5:46 AM CDT us Sol Yates MD LAB BLOOD ORDERABLES [facility] Result [facility] [address] [place] [address] * CBC with auto differential (01/26/2025 5:32 AM CDT) WBC 6.29 3.80 - 9.90 K/cumm Hgb 12.9 11.9 - 15.5 g/dL [facility] Hct 38.1 35.6 - 45.5 % [facility] Plt 265 150 - 400 K/cumm [facility] MPV 9.1 9.1 - 12.3 fL [facility] RBC 4.24 3.90 - 5.20 M/cumm [facility] MCV 89.9 81.3 - 96.4 fL [facility] MCH 30.4 27.1 - 33.3 pg [facility] MCHC 33.9 32.3 - 35.7 g/dL [facility] RDW CV 13.5 11.1 - 14.9 % [facility] RDW SD 43.9 35.7 - 48.1 fL [facility] NRBC abs 0.00 0.00 - 0.01 K/cumm [facility] Blood 01/26/2025 5:32 AM CDT 01/26/2025 5:46 AM CDT Sol Yates MD LAB BLOOD ORDERABLES Fi nal Result Performing Organization Address City/[facility]/ZIP Co de Phone Number [address] [place] [place] [address] * Magnesium (01/26/2025 5:32 AM CDT) [facility] Magnesium 2.2 1.4 - 2.5 mg/dL Blood 01/26/2025 5:32 AM CDT 01/26/2025 5:46 AM CDT Sol Yates MD LAB BLOOD ORDERABLES Fi nal Result Performing Organization Address City/[facility]/ZIP Co de Phone Number [address] [place] [address] * Comprehensive metabolic panel (01/26/2025 5:32 AM CDT) Pathologist [facility] Sodium 140 135 - 145 mmol/L Potassium, pl 3.3 3.3 - 4.9 mmol/L [facility] Chloride 105 97 - 110 mmol/L [facility] CO2 25 22 - 32 mmol/L [facility] Anion gap 10 2 - 15 mmol/L [facility] BUN 9 6 - 25 mg/dL [facility] Creatinine 0.96 0.60 - 1.10 mg/dL [facility] Glucose 123 70 - 199 mg/dL [facility] Comment: Interpretive Data Fasting glucose >/= 126 [...] 2022. Calcium 8.6 8.5 - 10.3 mg/dL [facility] Bilirubin, total 0.3 0.1 - 1.2 mg/dL [facility] Protein, pl 6.5 6.5 - 8.5 g/dL [facility] Albumin 3.7 3.5 - 5.0 g/dL [facility] Alk phos 108 40 - 130 Units/L [facility] ALT 24 7 - 45 Units/L [facility] AST 24 10 - 45 Units/L [facility] Blood 01/26/2025 5:32 AM CDT 01/26/2025 5:46 AM CDT Sol Yates MD LAB BLOOD ORDERABLES Fi nal Result Performing Organization Address City/State/[facility] Co de Phone Number [facility] [address] Department [place] [address] * POCT hCG, urine (01/26/2025 1:00 AM CDT) HCG, ur, POC Negative Negative Lot Number [id number] QC Backgroud Clear Acceptable QC Control Line Acceptable Urine 01/26/2025 1:00 AM CDT Sol Yates MD POINT OF CARE TEST ORDE RABLES Final Result * (ABNORMAL) Urinalysis reflex to microscopic and culture Urine (01/25/2025 10:03 PM CDT) Color, ur Straw Yellow Clarity, ur Clear Clear [facility] Specific gravity, ur 1.007 1.003 - 1.030 [facility] pH, urine 5.5 [facility] Comment: Interpretive Data U rine pH is affected by diet, medications, systemic acid-base disturbances, and renal tubular function. pH may affect urinary stone formation. For example, urine pH below 6.0 may help reduce the tendency for calcium phosphate stones and pH greater than 6.0 may reduce the tendency for uric acid stone formation. Source: [facility] Current Interpretive Data was last revised on 2017 Protein, ur ql Negative Negative [facility] Glucose, ur ql Negative Negative [facility] Ketones, ur Negative Negative [facility] Bilirubin, ur Negative Negative [facility] Blood, ur Negative Negative [facility] Urobilinogen, ur <2.0 <2.0 mg/dL [facility] Nitrite, ur Negative Negative [facility] Leukocyte esterase, ur 3+(A) Negative [facility] UA reflex comment Reflex to microscopic UA will be performed. [facility] Urine 01/25/2025 10:0 3 PM CDT 01/25/2025 10:06 PM CDT us Sol Yates MD LAB MICROBIOLOGY - [facility] ORDERABLES Final Result [facility] [address] Department [place] [address] * (ABNORMAL) Drugs of Abuse [...] 2023. Barbiturates, ur Not Detected CutOff 200ng/mL [facility] Comment: Interpretive Data - Barbiturates: Samples containing greater than 200 ng/mL secobarbital or other cross-reacting barbiturate compounds are reported as positive. False positive and false negative results are possible. Confirmatory testing required for definitive results. Current Interpretive Data was last reviewed 2023. Benzodiazepines, ur Screen Positive, presumptive (A) CutOff 100ng/mL [facility] Comment: Interpretive Data - Benzodiazepines: Samples containing greater than 100 ng/mL nordiazepam or other cross-reacting compounds are reported as positive. False positive and false negative results are possible. Confirmatory testing required for definitive results. Current Interpretive Data was last reviewed 2023. Cannabinoids, ur Not Detected CutOff 50 ng/mL [facility] Comment: Interpretive Data - Cannabinoids: Samples containing greater than 50 ng/mL delta-9 THC -COOH or other cross- reacting compounds are reported as positive. False positive and false negative results are possible. Confirmatory testing required for definitive results. Current Interpretive Data was last reviewed 2023. Cocaine, ur Screen Positive, presumptive (A) CutOff 150ng/mL [facility] Comment: Interpretive Data - Cocaine: Samples containing greater than 150 ng/mL benzoylecgonine or other cross- reacting compounds are reported as positive. False positive and false negative results are possible. Confirmatory testing required for definitive results. Current Interpretive Data was last reviewed 2023. Fentanyl, Ur Not Detected CutOff 5 ng/mL [facility] Comment: Interpretive Data - Fentanyl: Samples containing greater than 5 ng/mL norfentanyl, fentanyl, or other cross-reacting fentanyl compounds are reported as positive. False positive and false negative results are possible. Confirmatory testing required for definitive results. Current Interpretive Data was last reviewed 2023. Methadone, ur Not Detected CutOff 300ng/mL [facility] Comment: Interpretive Data - Methadone: Samples containing greater than 300 ng/mL d,l-methadone or other cross-reacting compounds are reported as positive. False positive and false negative results are possible. Confirmatory testing required for definitive results. Current Interpretive Data was last reviewed 2023. Opiates, ur Not Detected CutOff 300ng/mL [facility] Comment: Interpretive Data - Opiates: Samples containing greater than 300 ng/mL morphine or other cross-reacting compounds are reported as positive. False positive and false negative results are possible. Confirmatory testing required for definitive results. Current Interpretive Data was last reviewed 2023. Oxycodone, ur Not Detected CutOff 100ng/mL [facility] Comment: Interpretive Data - Oxycodone: Samples containing [...] PM CDT 01/25/2025 10:06 PM CDT Narrative [facility] - 01/25/2025 10:53 PM CDT Drug of Abuse screening is performed by immunoassay for medical purposes only. This is not to be used for Pain Management purposes. Sol Yates MD LAB URINE ORDERABLES nal Result [facility] [address] [place] [address] * (ABNORMAL) Urinalysis, microscopic only (01/25/2025 10:03 PM CDT) WBC, ur 0-5 0 - 5 /HPF RBC, ur 0-2 0 - 2 /HPF [facility] Epithelial cells, squamous, ur 1-5 0 - 5 /HPF [facility] Bacteria, ur Trace(A) [facility] Mucous, ur Present(A) [facility] Culture Reflex Comment Reflex conditions for urine culture (WBC >10) not met. [facility] Urine 01/25/2025 10:0 3 PM CDT 01/25/2025 10:06 PM CDT Sol Yates MD LAB URINE ORDERABLES Fi nal Result [facility] [address] Department [place] [address] * ECG 12 lead (01/25/2025 8:07 PM CDT) Ventricular Rate EKG/Min 108 BPM [facility] Atrial Rate 108 BPM [facility] SC-Interval (MSEC) 168 ms [facility] QRS-Interval (MSEC) 68 ms [facility] QT-Interval (MSEC) 342 ms [facility] QTc 458 ms [facility] P Show Low 32 degrees [facility] R Show Low 5 degrees [facility] T Show Low 32 degrees [facility] Diagnosis Sinus tachycardia Possible Inferior infarct , age undetermined Abnormal ECG No previous ECGs available Confirmed by INOCENCIA DUQUE M.D. ([id number]) on 01/26/2025 10:43:48 PM [facility] 01/25/2025 8:07 PM CDT 01/26/2025 10:43 PM CDT Sol Yates MD ECG ORDERABLES Final R esult Performing Organization Address City/[facility] Co de Phone Number [facility] * eGFR (01/25/2025 7:59 PM CDT) eGFR [...] Yates MD LAB BLOOD ORDERABLES nal Result [facility] [address] [place] [address] * Differential, auto (01/25/2025 7:59 PM CDT) Neutrophil abs 4.71 1.50 - 6.50 K/cumm Imm gran abs 0.02 0.00 - 0.10 K/cumm [facility] Lymphocyte abs 3.01 0.80 - 3.30 K/cumm [facility] Monocyte abs 0.61 0.20 - 0.80 K/cumm [facility] Eosinophil abs 0.00 0.00 - 0.50 K/cumm [facility] Basophil abs 0.04 0.00 - 0.10 K/cumm [facility] Neutrophil pct 56.1 % [facility] Comment: Interpretive Data Percent cell count reference ranges are not reported, since discordance with absolute values may lead to misinterpretation of CBC data. Current Interpretive Data was last revised on 2017. Imm gran pct 0.2 % [facility] Comment: Interpretive Data Percent cell count reference ranges are not reported, since discordance with absolute values may lead to misinterpretation of CBC data. Current Interpretive Data was last revised on 2017. Lymphocyte pct 35.9 % [facility] Comment: Interpretive Data Percent cell count reference ranges are not reported, since discordance with absolute values may lead to misinterpretation of CBC data. Current Interpretive Data was last revised on 2017. Monocyte pct 7.3 % [facility] Comment: Interpretive Data Percent cell count reference ranges are not reported, since discordance with absolute values may lead to misinterpretation of CBC data. Current Interpretive Data was last revised on 2017. Eosinophil pct 0.0 % [facility] Comment: Interpretive Data Percent cell count reference [...] ORDERABLES Fi nal Result Performing Organization Address City/[facility]/ZIP Co de Phone Number [address] [place] [address] * Thyroid Function [place] (01/25/2025 7:59 PM CDT) Pathologist [facility] TSH 1.73 0.30 - 4.20 mcIUnit/mL Blood 01/25/2025 7:59 PM CDT 01/25/2025 8:04 PM CDT Sol Yates MD LAB BLOOD ORDERABLES Fi nal Result Performing Organization Address [facility] Co de Phone Number [address] [address] * (ABNORMAL) CBC with auto differential (01/25/2025 7:59 PM CDT) Pathologist [facility] WBC 8.39 3.80 - 9.90 K/cumm Hgb 13.7 11.9 - 15.5 g/dL [facility] Hct 39.0 35.6 - 45.5 % [facility] Plt 304 150 - 400 K/cumm [facility] MPV 8.9(L) 9.1 - 12.3 fL [facility] RBC 4.42 3.90 - 5.20 M/cumm [facility] MCV 88.2 81.3 - 96.4 fL [facility] MCH 31.0 27.1 - 33.3 pg [facility] MCHC 35.1 32.3 - 35.7 g/dL [facility] RDW CV 13.2 11.1 - 14.9 % [facility] RDW SD 42.9 35.7 - 48.1 fL [facility] NRBC abs 0.00 0.00 - 0.01 K/cumm [facility] Blood Venous blood specimen / Unknown 01/25/2025 7:59 PM CDT 01/25/2025 8:04 PM CDT Sol Yates MD LAB BLOOD ORDERABLES Fi nal Result [facility] [address] [place] [address] * (ABNORMAL) Ethanol (01/25/2025 7:59 PM CDT) Ethanol 14(H) <=10 mg/dL Comment: Interpretive Data Legal limit of intoxication > or = 80 mg/dL Levels > or = 400 mg/dL are potentially TOXIC. Current interpretive data was last revised on 2018. Blood 01/25/2025 7:59 PM CDT 01/25/2025 8:04 PM CDT Sol Yates MD LAB BLOOD ORDERABLES Fi nal Result Performing Organization Address City/[facility]/ZIP Co de Phone Number [address] [place] [address] * (ABNORMAL) Comprehensive metabolic panel (01/25/2025 7:59 PM CDT) Sodium 140 135 - 145 mmol/L Potassium, pl 3.5 3.3 - 4.9 mmol/L [facility] Chloride 104 97 - 110 mmol/L [facility] CO2 21(L) 22 - 32 mmol/L [facility] Anion gap 15 2 - 15 mmol/L [facility] BUN 9 6 - 25 mg/dL [facility] Creatinine 1.00 0.60 - 1.10 mg/dL [facility] Glucose 122 70 - 199 mg/dL [facility] Comment: Interpretive Data Fasting glucose >/= 126 [...] 8.5 - 10.3 mg/dL [facility] Bilirubin, total 0.4 0.1 - 1.2 mg/dL [facility] Protein, pl 7.4 6.5 - 8.5 g/dL [facility] Albumin 4.3 3.5 - 5.0 g/dL [facility] Alk phos 112 40 - 130 Units/L [facility] ALT 30 7 - 45 Units/L [facility] AST 28 10 - 45 Units/L [facility] Blood 01/25/2025 7:59 PM CDT 01/25/2025 8:04 PM CDT us Sol Yates MD LAB BLOOD ORDERABLES Fi nal Result [facility] [address] [facility] [place] [address] * eGFR (01/22/2025 6:09 AM CDT) eGFR [...] Final Resul t [facility] ([place]) [address] [facility] Department [place] [address] * (ABNORMAL) CBC without differential (01/22/2025 6:09 [...] NP LAB BLOOD ORDERABLES Final Resul t [facility] [address] [facility] Department [place] [address] * Comprehensive metabolic panel (01/22/2025 6:09 AM [...] Final Resul t [facility] ([place]) [address] [facility] Department [place] [address] * Urinalysis reflex to microscopic and culture [...] tendency for uric acid stone formation. Source: [facility] Current Interpretive Data was last revised [...] STUART Final Result [facility] ([place]) [address] [facility] Department [place] [address] * (ABNORMAL) Drugs of Abuse Screen, Urine without Confirmation (01/21/2025 1:10 AM CDT) Pathologist [facility] Amphetamine, ur Screen Positive, presumptive (A) [...] used for Pain Management purposes. Marilu Stan SURVEY METHODOLOGIST LAB URINE ORDERABLES Final Resul t [facility] ([place]) [address] [place] [address] * Sepsis Lactate w/ Reflex (01/21/2025 12:41 AM CDT) Sepsis Lactate 1.5 0.7 - 2.0 mmol/L Blood 01/21/2025 12:4 1 AM CDT 01/21/2025 12:41 AM CDT [facility] BLOOD ORDERABLES Final Resul t Performing Organization Address [facility] Hospital/[facility] Co de Phone Number KORY DELANEY ([place]) 1 [place] [address] * eGFR (01/21/2025 12:41 AM CDT) eGFR [...] BLOOD ORDERABLES Final Resul t KORY DELANEY ([place]) 1 [facility] Department [place] [address] * Differential, auto (01/21/2025 12:41 AM CDT) Neutrophil abs 3.53 1.50 - 6.50 K/cumm Imm gran abs 0.01 0.00 - 0.10 K/cumm [facility] ([place]) Lymphocyte abs 3.13 0.80 - 3.30 K/cumm [facility] ([place]) Monocyte abs 0.38 0.20 - 0.80 K/cumm [facility] ([place]) Eosinophil abs 0.00 0.00 - 0.50 K/cumm [facility] ([place]) Basophil abs 0.04 0.00 - 0.10 K/cumm [facility] ([place]) Neutrophil pct 49.8 % [facility] ([place]) Comment: Interpretive Data Percent cell count reference ranges are not reported, since discordance with absolute values may lead to misinterpretation of CBC data. Current Interpretive Data was last revised on 2017. Imm gran pct 0.1 % [facility] ([place]) Comment: Interpretive Data Percent cell count reference [...] 2017. Monocyte pct 5.4 % [facility] ([place]) Comment: Interpretive Data Percent cell count reference ranges are not reported, since discordance with absolute values may lead to misinterpretation of CBC data. Current Interpretive Data was last revised on 2017. Eosinophil pct 0.0 % [facility] ([place]) Comment: Interpretive Data Percent cell count reference [...] 1 [facility] of [place] [address] * (ABNORMAL) CBC with auto differential (01/21/2025 [...] Final Resul t [facility] ([place]) 1 [facility] Department [place] [address] * Comprehensive metabolic panel (01/21/2025 12:41 AM [...] 116 40 - 130 Units/L [facility] ([place]) ALT 21 7 - 45 Units/L [facility] ([place]) AST 23 10 - 45 Units/L [facility] ([place]) Comment:HEMOLYZED; Blood 01/21/2025 12:4 1 AM CDT 01/21/2025 12:41 AM CDT us Marilu Pierce NP LAB BLOOD ORDERABLES Final Resul t Performing Organization Address City/[facility]/ZIP Co de Phone Number [facility] [place]) 1 [facility] [employer] [place] [address] * (ABNORMAL) Ethanol (01/20/2025 7:05 PM CDT) [...] ORDERABLES Final Resu lt Performing Organization Address [facility] Co de Phone Number [facility] ([place]) 1 [facility] [employer] [place] [address] * DIAGNOSTIC MAMMOGRAM BILATERAL W MARY ANNE (05/11/2015 11:49 AM PROGRAM SERVICES PLANNER) Anatomical Region Laterality Modality Breast Bilateral Mammography 05/11/2015 11:4 9 AM PROGRAM SERVICES PLANNER Narrative 05/11/2015 11:11 PM PROGRAM SERVICES PLANNER SCREENING MAMM W MARY ANNE BI Acc#: [id number] Screening Mamm Bi Acc#: [id number] DATE OF EXAM: May 11 2015 Performed [...] Fax: -- Attending Fax: -- Attending ID: [id number] Requesting ID: [id number] Report To 1 ID: [id number] Report To 1 Name: ROD DUQUE Report To 1 FAX: -- NextGen Order #: Procedure Note Provider, MD Manuelito - 10/31/2016 SCREENING MAMM W MARY ANNE BI Acc#: [id number] Screening Mamm Bi Acc#: [id number] DATE OF EXAM: May 11 2015 Performed [...] Fax: -- Attending Fax: -- Attending ID: [id number] Requesting ID: [id number] Report To 1 ID: [id number] Report To 1 Name: ROD DUQUE Report To 1 FAX: -- NextGen Order #: Historical Provider MD KUHN MAMMO PROCEDURES Margarita l Result from Last 3 Months or Most Recently Relevant to Health Maintenance Insurance [facility] Advance Directives For more information, please contact: [phone] * Full Code (Latest Code Status on [...] 8:35 PM 04/10/2020 6:28 PM Care Teams Engraver Steel Plate Relationship Specialty Start Date End Date Arianne Alarcon NP [address] [place] [address] PCP - General 04/24/17 Derrick Walker MD [address] [place] [address] Consulting Physician Plastic Surgery 12/25/19
--- OUTSIDE RECORDS SUMMARY | 2025-02-11 11:17 | XMS_ITS | Encounter Summary ---
Author Organization [facility] Address [address] [place] [address] Phone Care Team Providers Care Casing Puller Name Role Phone Jack Dukes MD Unavailable [phone] Arianne Alarcon APRN, BUYER RENTER Primary Care Provider [phone] Lito Chatterjee MD Unavailable [phone] Gustabo Falk MD Unavailable [phone] Amrit Goddard MD Unavailable Phan Grant MD Unavailable [phone] Reason for Visit * Reason Comments Medication Refill Encounter Details Date Type Department Care Team (Late st Contact Info) Description 01/01/2023 Refill [facility] - Neurology [facility] [address] [place] [address] Jack Dukes MD [address] [place] [address] Medication Refill Social History Tobacco Use Types Packs/Day Years Used Date Smoking Tobacco: Never Smokeless Tobacco: Never Alcohol Use Standard Drinks/Week Comments No 0 (1 standard drink = 0.6 oz pur e alcohol) Comments No Sex and Gender Information Value Date Recorded Sex Assigned at Not on file Legal Sex Female 2:52 AM POOL HAND Gender Identity Not on file Sexual Orientation Not on file 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 Showing future appointments within next 90 days and meeting all other requirements documented in this encounter Plan of Treatment Upcoming Encounters Date Type Department Care Team (Late st Contact Info) Description 02/17/2025 10:15 AM CDT Telemedicine [facility] Medical [facility] Neurology [facility] [address] [place] [address] Jack Dukes MD [address] [place] [address] 08/25/2025 2:00 PM POOL HAND Office Visit [facility] Oncology Services [address] [place] [address] Phan Grant MD [address] [place] [address] Discharge Disposition: Discharged to home or Selfcare documented as of this encounter Visit Diagnoses Diagnosis Seizures (HCC) Other convulsions documented in this encounter Care Teams Casing Puller Relationship Specialty Start Date End Date Arianne Alarcon APRN, CNP [address] [place] [address] PCP - General Family Medicine 08/29/16 Jack Dukes MD [address] [place] [address] Consulting Physician Neurology 08/21/16 Lito Chatterjee MD [address] [place] [address] Consulting Physician General Surgery 04/27/19 Gustabo Falk MD [address] [place] [address] Consulting Physician Radiation Oncology 04/27/19 Amrit Goddard MD [address] [address] Consulting Physician General Surgery 06/08/19 [place] [address] [place] [address] Consulting Physician Medical Oncology 02/16/20 documented as of this encounter
--- OUTSIDE RECORDS SUMMARY | 2025-02-11 11:17 | XMS_ITS | Encounter Summary ---
Author Organization [facility] Address [address] [place] [address] Phone Care Team Providers Care Bariatric Coordinator Name Role Phone Jack Dukes MD Unavailable [phone] Arianne Alarcon APRN, PUBLIC HEALTH EPIDEMIOLOGIST Primary Care Provider [phone] Lito Chatterjee MD Unavailable [phone] Gustabo Falk MD Unavailable [phone] Amrit Goddard MD Unavailable Phan Grant MD Unavailable [phone] Reason for Visit * Reason Comments Medication Refill Encounter Details Date Type Department Care Team (Late st Contact Info) Description 02/17/2023 Refill [facility] - Neurology [facility] [address] [place] [address] Jack Dukes MD [address] [place] [address] Medication Refill Social History Tobacco Use Types Packs/Day Years Used Date Smoking Tobacco: Never Smokeless Tobacco: Never Alcohol Use Standard Drinks/Week Comments No 0 (1 standard drink = 0.6 oz pur e alcohol) Comments No Sex and Gender Information Value Date Recorded Sex Assigned at Not on file Legal Sex Female 2:52 AM LACTATION CONSULTANT Gender Identity Not on file Sexual Orientation Not on file 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 Showing future appointments within next 90 days and meeting all other requirements documented in this encounter Plan of Treatment Upcoming Encounters Date Type Department Care Team (Late st Contact Info) Description 02/17/2025 10:15 AM CDT Telemedicine [facility] Neurology [facility] [address] [place] [address] Jack Dukes MD [address] [place] [address] 08/25/2025 2:00 PM LACTATION CONSULTANT Office Visit [facility] Oncology Services [address] [place] [id number] Phan Grant MD 0 [place] [address] Discharge Disposition: Discharged to home or Selfcare documented as of this encounter Visit Diagnoses Diagnosis 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) documented in this encounter Care Teams Bariatric Coordinator Relationship Specialty Start Date End Date Arianne Alarcon APRROMEL Whipple [address] [place] [address] PCP - General Family Medicine 08/29/16 Jack Dukes MD [address] [place] [address] Consulting Physician Neurology 08/21/16 Lito Chatterjee MD [address] [place] [address] Consulting Physician General Surgery 04/27/19 Gustabo Falk MD [address] [place] [address] Consulting Physician Radiation Oncology 04/27/19 Amrit Goddard MD [address] [address] Consulting Physician General Surgery 06/08/19 [place] [address] [place] [address] Consulting Physician Medical Oncology 02/16/20 documented as of this encounter
--- OUTSIDE RECORDS SUMMARY | 2025-02-11 11:17 | XMS_ITS | Encounter Summary ---
Author Organization [facility] Address [address] [place] [address] Phone Care Team Providers Care General Repair Mechanic Name Role Phone Jack Dukes MD Unavailable [phone] Arianne Alarcon APRN, SUPERVISOR FINISH END Primary Care Provider [phone] Lito Chatterjee MD Unavailable [phone] Gustabo Falk MD Unavailable [phone] Amrit Goddard MD Unavailable Phan Grant MD Unavailable [phone] Reason for Visit * Reason Comments Medication Refill Encounter Details Date Type Department Care Team (Late st Contact Info) Description 09/05/2022 Refill [facility] - Neurology [facility] #[address] [place] [address] Jack Dukes MD [address] [place] [address] Medication Refill Social History Tobacco Use Types Packs/Day Years Used Date Smoking Tobacco: Never Smokeless Tobacco: Never Alcohol Use Standard Drinks/Week Comments No 0 (1 standard drink = 0.6 oz pur e alcohol) Comments No Sex and Gender Information Value Date Recorded Sex Assigned at Not on file Legal Sex Female 2:52 AM CLINICAL ACADEMIC ALLERGIST Gender Identity Not on file Sexual Orientation Not on file 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 No / Unsure 08/21/2022 2:16 PM CLINICAL ACADEMIC ALLERGIST documented as of this encounter Miscellaneous Notes [...] Provider Dept 08/01/22 Telemedicine Jack Dukes MD [facility] Neurology [facility] Showing recent visits within past 365 days and meeting all other requirements Future Appointments No visits were found meeting these conditions. Showing future appointments within next 90 days and meeting all other requirements ICAL ACADEMIC ALLERGIST documented in this encounter Plan of Treatment Upcoming Encounters Date Type Department Care Team (Late st Contact Info) Description 02/17/2025 10:15 AM CDT Telemedicine [facility] - Neurology [facility] [address] [place] [address] Jack Dukes MD [address] [place] [address] 08/25/2025 2:00 PM CLINICAL ACADEMIC ALLERGIST Office Visit [facility] Oncology Services [address] [place] [address] Phan Grant MD 0 [place] [address] Discharge Disposition: Discharged to home or Selfcare documented as of this encounter Visit Diagnoses Diagnosis Seizures (HCC) Other convulsions documented in this encounter Care Teams General Repair Mechanic Relationship Specialty Start Date End Date Arianne Alarcon APRN, SUPERVISOR FINISH END [address] [place] [address] PCP - General Family Medicine 08/29/16 Jack Dukes MD [address] [place] [address] Consulting Physician Neurology 08/21/16 Lito Chatterjee MD [address] [place] [address] Consulting Physician General Surgery 04/27/19 Gustabo Falk MD [address] [place] [address] Consulting Physician Radiation Oncology 04/27/19 Amrit Goddard MD [address] [place] [address] Consulting Physician General Surgery 06/08/19 Phan Grant MD [address] [place], [place] [address] Consulting Physician Medical Oncology 02/16/20 documented as of this encounter
--- OUTSIDE RECORDS SUMMARY | 2025-02-11 11:17 | XMS_ITS | Clinical Summary ---
Author Organization [facility] Address [address] [place] [address] Care Team Providers Care Cath Lab Technologist Name Role Phone Unavailable Primary Care Provider [...] Comments Blood Pressure 102/70 06/15/2015 9:24 AM TRUCK STRIKER Pulse 78 06/15/2015 9:24 AM TRUCK STRIKER Temperature - - Respiratory Rate - - Oxygen Saturation - - Inhaled Oxygen Concentration - - Weight 68 kg (150 lb) 06/15/2015 9:24 AM TRUCK STRIKER Height 167.6 cm (5' 6) 06/15/2015 9:24 AM TRUCK STRIKER Body Mass Index 24.21 06/15/2015 9:24 AM TRUCK STRIKER Plan of Treatment Health Maintenance Due Date [...]
--- OUTSIDE RECORDS SUMMARY | 2025-02-11 11:17 | XMS_ITS | Encounter Summary ---
Author Organization [facility] Address [address] [place] [address] Phone Care Team Providers Care Newspaper Peddler Name Role Phone Jack Dukes MD Unavailable [phone] Arianne Alarcon APRN, ASSISTANT INFANT TEACHER Primary Care Provider [phone] Lito Chatterjee MD Unavailable [phone] Gustabo Falk MD Unavailable [phone] Amrit Goddard MD Unavailable Phan Grant MD Unavailable [phone] Reason for Visit * Reason Comments Medication Refill Encounter Details Date Type Department Care Team (Late st Contact Info) Description 10/29/2024 Refill [facility] - Neurology [facility] #2 [place] [address] Jack Dukes MD [address] [place] [address] Medication Refill Social History Tobacco Use Types Packs/Day Years Used Date Smoking Tobacco: Never Smokeless Tobacco: Never Alcohol Use Standard Drinks/Week Comments No 0 (1 standard drink = 0.6 oz pur e alcohol) Comments No Sex and Gender Information Value Date Recorded Sex Assigned at Not on file Legal Sex Female 2:52 AM PUBLIC HEALTH ENGINEER Gender Identity Not on file Sexual Orientation Not on file 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 Not on file Not on file documented as of this encounter Plan of Treatment Upcoming Encounters Date Type Department Care Team (Late st Contact Info) Description 02/17/2025 10:15 AM CDT Telemedicine [facility] #[address] [place] [address] Jack Dukes MD [address] [place] [address] 08/25/2025 2:00 PM PUBLIC HEALTH ENGINEER Office Visit [facility] Oncology Services [address] [place] [address] Phan Grant MD [address] [place] [address] Discharge Disposition: Discharged to home or Selfcare documented as of this encounter Visit Diagnoses Diagnosis 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) documented in this encounter Care Teams Newspaper Peddler Relationship Specialty Start Date End Date Arianne Alarcon APRN, CNP [address] [place] [address] PCP - General Family Medicine 08/29/16 Jack Dukes MD [address] [place] [address] Consulting Physician Neurology 08/21/16 Lito Chatterjee MD [address] [place] [address] Consulting Physician General Surgery 04/27/19 Gustabo Falk MD [address] [place] [address] Consulting Physician Radiation Oncology 04/27/19 Amrit Goddard MD [address] [facility] [address] [place] [address] Consulting Physician General Surgery 06/08/19 Phan Grant MD [address] [place] [address] Consulting Physician Medical Oncology 02/16/20 documented as of this encounter
--- OUTSIDE RECORDS SUMMARY | 2025-02-11 11:17 | XMS_ITS | Encounter Summary ---
Author Organization [facility] Address [address] [place] [address] Phone Care Team Providers Care Equipment Operator/Laborer Name Role Phone Jack Dukes MD Unavailable [phone] Arianne Alarcon APRN, ATM SERVICER Primary Care Provider [phone] Lito Chatterjee MD Unavailable [phone] Gustabo Falk MD Unavailable [phone] Amrit Goddard MD Unavailable Phan Grant MD Unavailable [phone] Reason for Visit * Reason Comments Medication Refill Encounter Details Date Type Department Care Team (Late st Contact Info) Description 11/05/2024 Refill [facility] - Neurology [facility] [address] [place] [address] Jack Dukes MD [address] [place] [address] Medication Refill Social History Tobacco Use Types Packs/Day Years Used Date Smoking Tobacco: Never Smokeless Tobacco: Never Alcohol Use Standard Drinks/Week Comments No 0 (1 standard drink = 0.6 oz pur e alcohol) Comments No Sex and Gender Information Value Date Recorded Sex Assigned at Not on file Legal Sex Female 2:52 AM CONTINUOUS PROCESS ROTARY DRUM TANNER Gender Identity Not on file Sexual Orientation Not on file 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) documented in this encounter Care Teams Equipment Operator/Laborer Relationship Specialty Start Date End Date Arianne Alarcon APRN, CNP [address] [place] [address] PCP - General Family Medicine 08/29/16 Jack Dukes MD [address] [place] [address] Consulting Physician Neurology 08/21/16 Lito Chatterjee MD [address] [place] [address] Consulting Physician General Surgery 04/27/19 Gustabo Falk MD [address] [place] [address] Consulting Physician Radiation Oncology 04/27/19 Amrit Goddard MD #2 [facility] [address] [place] [address] Consulting Physician General Surgery 06/08/19 Phan Grant MD [address] [place] [address] Consulting Physician Medical Oncology 02/16/20 documented as of this encounter
--- OUTSIDE RECORDS SUMMARY | 2025-02-11 12:22 | XMS_ITS | Encounter Summary ---
Author Organization [facility] Address [address] [place] [address] Phone Care Team Providers Care Special Machine Operator Name Role Phone Jack Dukes MD Unavailable [phone] Arianne Alarcon APRN, IT PROGRAMMER Primary Care Provider [phone] Lito Chatterjee MD Unavailable [phone] Gustabo Falk MD Unavailable [phone] Amrit Goddard MD Unavailable Phan Grant MD Unavailable [phone] Reason for Visit * Reason Comments Medication Refill Encounter Details Date Type Department Care Team (Late st Contact Info) Description 09/05/2022 Refill [facility] - Neurology 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 No / Unsure 08/21/2022 2:16 PM COSTUMED CHARACTER ENTERTAINER documented as of this encounter Miscellaneous Notes [...] Provider Dept 08/01/22 Telemedicine Jack Dukes MD [facility] Neurology [facility] Showing recent visits within past 365 days and meeting all other requirements Future Appointments No visits were found meeting these conditions. Showing future appointments within next 90 days and meeting all other requirements UMED CHARACTER ENTERTAINER documented in this encounter Plan of Treatment Upcoming Encounters Date Type Department Care Team (Late st Contact Info) Description 02/17/2025 10:15 AM CDT Telemedicine [facility] - Neurology [facility] #[address] [place] [address] Jack Dukes MD [address] [place] [address] 08/25/2025 2:00 PM COSTUMED CHARACTER ENTERTAINER Office Visit [facility] Oncology Services [address] [place] [address] Phan Grant MD 0 [place] [address] Discharge Disposition: Discharged to home or Selfcare documented as of this encounter Visit Diagnoses Diagnosis Seizures (HCC) Other convulsions documented in this encounter Care Teams Special Machine Operator Relationship Specialty Start Date End Date Arianne Alarcon APRN, IT PROGRAMMER [address] [place] [address] PCP - General Family Medicine 08/29/16 Jack Dukes MD [address] [place] [address] Consulting Physician Neurology 08/21/16 Lito Chatterjee MD [address] [place] [address] Consulting Physician General Surgery 04/27/19 Gustabo Falk MD [address] [place] [address] Consulting Physician Radiation Oncology 04/27/19 Amrit Goddard MD [address] [place] [address] Consulting Physician General Surgery 06/08/19 Phan Grant MD [address] [place], [place] [address] Consulting Physician Medical Oncology 02/16/20 documented as of this encounter
--- OUTSIDE RECORDS SUMMARY | 2025-02-11 12:22 | XMS_ITS | Encounter Summary ---
Author Organization [facility] Address [address] [place] [address] Phone Care Team Providers Care Party Plan Sales Unit Advisor Name Role Phone Jack Dukes MD Unavailable [phone] Arianne Alarcon APRN, TRAFFIC OFFICER Primary Care Provider [phone] Lito Chatterjee MD Unavailable [phone] Gustabo Falk MD Unavailable [phone] Amrit Goddard MD Unavailable Phan Grant MD Unavailable [phone] Reason for Visit * Reason Comments Medication Refill Encounter Details Date Type Department Care Team (Late st Contact Info) Description 11/05/2024 Refill [facility] - Neurology [facility] [address] [place] [address] Jack Dukes MD [address] [place] [address] Medication Refill Social History Tobacco Use Types Packs/Day Years Used Date Smoking Tobacco: Never Smokeless Tobacco: Never Alcohol Use Standard Drinks/Week Comments No 0 (1 standard drink = 0.6 oz pur e alcohol) Comments No Sex and Gender Information Value Date Recorded Sex Assigned at Not on file Legal Sex Female 2:52 AM ELECTRIC ORGAN CHECKER Gender Identity Not on file Sexual Orientation Not on file 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 file Not on file Not on file documented as of this encounter Plan of Treatment Upcoming Encounters Date Type Department Care Team (Late st Contact Info) Description 02/17/2025 10:15 AM CDT Telemedicine [facility] [address] [place] [address] Jack Dukes MD [address] [place] [address] 08/25/2025 2:00 PM ELECTRIC ORGAN CHECKER Office Visit [facility] Oncology Services [address] [place] [address] Phan Grant MD [address] [place] [address] Discharge Disposition: Discharged to home or Selfcare documented as of this encounter Visit Diagnoses Diagnosis 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) documented in this encounter Care Teams Party Plan Sales Unit Advisor Relationship Specialty Start Date End Date Arianne Alarcon APRN, CNP [address] [place] [address] PCP - General Family Medicine 08/29/16 Jack Dukes MD [address] [place] [address] Consulting Physician Neurology 08/21/16 Lito Chatterjee MD [address] [place] [address] Consulting Physician General Surgery 04/27/19 Gustabo Falk MD [address] [place] [address] Consulting Physician Radiation Oncology 04/27/19 Amrit Goddard MD [address] [facility] [address] [place] [address] Consulting Physician General Surgery 06/08/19 Phan Grant MD [address] [place] [address] Consulting Physician Medical Oncology 02/16/20 documented as of this encounter
--- OUTSIDE RECORDS SUMMARY | 2025-02-11 12:22 | XMS_ITS | Encounter Summary ---
Author Organization [facility] Address [address] [place] [address] Phone Care Team Providers Care Beauty Sales Consultant Name Role Phone Jack Dukes MD Unavailable Arianne Alarcon APRN, POOL NURSE Primary Care Provider [phone] Lito Chatterjee MD Unavailable [phone] Gustabo Falk MD Unavailable Amrit Goddard MD Unavailable Phan Grant MD Unavailable [phone] Encounter Details Date Type Department Care Team (Latest Contact Info) Description 08/26/2024 Transcribe Orders [facility] Laboratory Services [address] [place] [id number] Arianne Alarcon APRN, POOL NURSE [address] [place] [address] Mixed hyperlipidemia (Primary Dx); Alcohol [...] on file Legal Sex Female 2:52 AM SPRING INSPECTOR Gender Identity Not on file Sexual Orientation Not on file 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 Not on file Not on file documented as of this encounter Plan of Treatment Upcoming Encounters Date Type Department Care Team (Late st Contact Info) Description 02/17/2025 10:15 AM CDT Telemedicine [facility] [address] [place] [address] Jack Dukes MD [address] [place] [address] 08/25/2025 2:00 PM SPRING INSPECTOR Office Visit [facility] Oncology Services [address] [place] [address] Phan Grant MD [address] [place] [address] Discharge Disposition: Discharged to home or Selfcare [...] 12:00 AM CDT) Blood us Arianne Alarcon SHRIMP PEELING MACHINE TENDER, POOL NURSE CHEMISTRY ORDERABLES Margarita l Result SCAN * COMPLETE BLOOD COUNT (CBC) WITH DIFF (10/29/2024 12:00 AM CDT) Blood Arianne Alarcon APRN, CNP HEMATOLOGY ORDERABLES Fin al Result Performing Organization Address [facility] Phone Number SCAN * LIPID PANEL (10/29/2024 12:00 AM CDT) CHOLESTEROL 182 SCAN HDL CHOLESTEROL 49 SCAN LDL 101 SCAN Blood Arianne Alarcon APRN, CNP CHEMISTRY ORDERABLES Margarita l Result Performing Organization Address [facility] Phone Number SCAN documented in this encounter Visit Diagnoses Diagnosis Mixed hyperlipidemia- Primary Alcohol abuse, uncomplicated Gastroesophageal reflux disease without esophagitis Esophageal reflux documented in this encounter Care Teams Beauty Sales Consultant Relationship Specialty Start Date End Date Arianne Alarcon APRN, CNP [address] [place] [address] PCP - General Family Medicine 08/29/16 Jack Dukes MD [address] [place] [phone] Consulting Physician Neurology 08/21/16 Lito Chatterjee MD [address] [place] [address] Consulting Physician General Surgery 04/27/19 Gustabo Falk MD [address] [place] [address] Consulting Physician Radiation Oncology 04/27/19 Amrit Goddard MD #[address] [facility] [address] [address] Consulting Physician General Surgery 06/08/19 Phan Grant MD [address] [place] [address] Consulting Physician Medical Oncology 02/16/20 documented as of this encounter
--- OUTSIDE RECORDS SUMMARY | 2025-02-11 12:22 | XMS_ITS ---
Author Organization [facility] Address [address] [place] [address] Care Team Providers Care Steel Pourer Helper Name Role Phone Arianne Alarcon NP Primary Care Provider [phone] Derirck Walker MD Unavailable [phone] Active Problems Problem Noted Date Diagnosed Date Alcohol withdrawal syndrome without complication 01/26/2025 Alcohol withdrawal syndrome with complication Alcohol withdrawal syndrome, uncomplicated 08/04 Hx of breast cancer 07/31/2020 Overview (07/31/2020): Added automatically from request for surgery [id number] History of breast cancer 02/10/2020 Overview (02/10/2020): Added automatically from request for surgery [id number] Anxiety 02/08/2020 Sensory neuropathy 02/08/2020 Nodule of [...]
--- OUTSIDE RECORDS SUMMARY | 2025-02-11 12:22 | XMS_ITS | Encounter Summary ---
Author Organization [facility] Address [address] [place] [address] Phone Care Team Providers Care Housekeeping Room Attendant Name Role Phone Jack Dukes MD Unavailable [phone] Arianne Alarcon APRN, GLUE BONE DRIER Primary Care Provider [phone] Lito Chatterjee MD Unavailable [phone] Gustabo Falk MD Unavailable [phone] Amrit Goddard MD Unavailable Phan Grant MD Unavailable [phone] Reason for Visit * Reason Comments Medication Refill Encounter Details Date Type Department Care Team (Late st Contact Info) Description 05/29/2020 Refill [facility] - Neurology - [place] [address] [place] [address] Jack Dukes MD [address] [place] [address] Medication Refill Social History Tobacco Use Types Packs/Day Years Used Date Smoking Tobacco: Never Smokeless Tobacco: Never Alcohol Use Standard Drinks/Week Comments No 0 (1 standard drink = 0.6 oz pur e alcohol) Comments No Sex and Gender Information Value Date Recorded Sex Assigned at Not on file Legal Sex Female 2:52 AM DATA INTEGRITY SPECIALIST Gender Identity Not on file Sexual Orientation Not on file 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 No / Unsure 05/22/2020 3:41 PM DATA INTEGRITY SPECIALIST documented as of this encounter Plan of Treatment Upcoming Encounters Date Type Department Care Team (Late st Contact Info) Description 02/17/2025 10:15 AM CDT Telemedicine [facility] Neurology [facility] [address] [place] [address] Jack Dukes MD [address] [place] [address] 08/25/2025 2:00 PM DATA INTEGRITY SPECIALIST Office Visit [facility] Oncology Services [address] [place] [address] Phan Grant MD [address] [place] [address] Discharge Disposition: Discharged to home or Selfcare documented as of this encounter Visit Diagnoses Diagnosis 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) documented in this encounter Care Teams Housekeeping Room Attendant Relationship Specialty Start Date End Date Arianne Alarcon APRN, CNP [address] [place], [place] [id number] PCP - General Family Medicine 08/29/16 Jack Dukes MD [address] [place] [address] Consulting Physician Neurology 08/21/16 Lito Chatterjee MD [address] [place] [address] Consulting Physician General Surgery 04/27/19 Gustabo Falk MD [address] [address] Consulting Physician Radiation Oncology 04/27/19 Amrit Goddard MD [address] [address] Consulting Physician General Surgery 06/08/19 Phan Grant MD [address] [place] [address] Consulting Physician Medical Oncology 02/16/20 documented as of this encounter
--- OUTSIDE RECORDS SUMMARY | 2025-02-11 12:22 | XMS_ITS | Encounter Summary ---
Author Organization [facility] Address [address] [place] [address] Phone Care Team Providers Care Child Neurologist Name Role Phone Jack Dukes MD Unavailable [phone] Arianne Alarcon APRN, SUPERVISORY CLERK Primary Care Provider [phone] Lito Chatterjee MD Unavailable [phone] Gustabo Falk MD Unavailable [phone] Amrit Goddard MD Unavailable Phan Grant MD Unavailable [phone] Reason for Visit * Reason Comments Medication Refill Encounter Details Date Type Department Care Team (Late st Contact Info) Description 01/17/2022 Refill [facility] - Neurology [facility] [address] [place] [address] Jack Dukes MD [address] [place] [address] Medication Refill Social History Tobacco Use Types Packs/Day Years Used Date Smoking Tobacco: Never Smokeless Tobacco: Never Alcohol Use Standard Drinks/Week Comments No 0 (1 standard drink = 0.6 oz pur e alcohol) Comments No Sex and Gender Information Value Date Recorded Sex Assigned at Not on file Legal Sex Female 2:52 AM UTILITY GELATIN MAKER Gender Identity Not on file Sexual Orientation Not on file 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 on file Not on file [...] AM CDT Telemedicine [facility] - Neurology [facility] [address] [place] [address] Jack Dukes MD [address] [place] [address] 08/25/2025 2:00 PM UTILITY GELATIN MAKER Office Visit [facility] Oncology Services [address] [place] [address] Phan Grant MD [address] [place] [address] Discharge Disposition: Discharged to home or Selfcare documented as of this encounter Visit Diagnoses Diagnosis 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) documented in this encounter Care Teams Child Neurologist Relationship Specialty Start Date End Date Arianne Alarcon APRN, SUPERVISORY CLERK [address] [place] [address] PCP - General Family Medicine 08/29/16 Jack Dukes MD [address] [place] [address] Consulting Physician Neurology 08/21/16 Lito Chatterjee MD [address] [place] [address] Consulting Physician General Surgery 04/27/19 Gustabo Falk MD [address] [address] Consulting Physician Radiation Oncology 04/27/19 Amrit Goddard MD [address] [address] Consulting Physician General Surgery 06/08/19 Phan Grant MD [address] [place] [address] Consulting Physician Medical Oncology 02/16/20 documented as of this encounter
--- OUTSIDE RECORDS SUMMARY | 2025-02-11 12:22 | XMS_ITS ---
Author Organization [facility] Address [address] [place] [address] Phone Care Team Providers Care Global Chief Experience Officer Name Role Phone Jack Dukes MD Unavailable [phone] Arianne Alarcon APRN, OTTER TRAWLER [place] Primary Care Provider [phone] Lito Chatterjee MD Unavailable [phone] Gustabo Falk MD Unavailable [phone] Amrit Goddard MD Unavailable Phan Grant MD Unavailable [phone] Active Problems * This document contains information [...]
--- OUTSIDE RECORDS SUMMARY | 2025-02-11 12:22 | XMS_ITS | Clinical Summary ---
Author Organization [facility] Address [address] [place] [address] Care Team Providers Care Windows Desktop Engineer Name Role Phone Arianne Alarcon NP Primary Care Provider [phone] Derrick Walker MD Unavailable [phone] Allergies Active Allergy Reactions Criticality Noted [...] (07/31/2020): Added automatically from request for surgery [id number] History of breast cancer 02/10/2020 Overview (02/10/2020): Added automatically from request for surgery [id number] Anxiety 02/08/2020 Sensory neuropathy 02/08/2020 Nodule of [...] Type Department Care Team Description 01/31/2025 Documentation [facility] Case Management [address] [place] [id number] Shanice Serna 01/25/2025 10:58 PM CDT - 01/28/2025 12:56 PM CDT Hospital Encounter [facility] [address] [place] [id number] Sol Yates MD Lun, Yu, MD Smith, Thomas Hamilton, MD Alcohol withdrawal syndrome without complication (HCC) (Primary Dx) Discharge Disposition: Discharge to an IP Rehab facility 01/23/2025 Documentation [facility] Warm Hand Off Program [address] [place], [place] [phone] Sheryl Montanez 01/22/2025 AMH Enrollment [facility] Warm Hand Off Program [address] [place], [place] [phone] Sheryl Montanez 01/21/2025 Documentation [facility] Warm Hand Off Program [address] [place], [place] [phone] Ana Nair 01/20/2025 9:33 PM CDT - 01/23/2025 5:11 PM CDT Hospital Encounter [facility] Medical Care 1 [place] [address] Gabo Santos MD Sargsyan, Narine, MD Alcohol withdrawal syndrome with complication (HCC) (Primary Dx) Discharge Disposition: Left Against Medical Advice 01/20/2025 Documentation [facility] Warm Hand Off Program [address] [place], [place] [phone] Ana Nair from Last 3 Months Immunizations [...] PORTACATH PLACEMENT Left MASTECTOMY 12/24/2019 Bilateral TISSUE LIGHT BULB TESTER PLACEMENT 12/24/2019 Bilateral Removal Left Port a [...] drink = 0.6 oz pur e alcohol) [facility] Utilities Answer Date Recorded In the past 12 months has [employer], gas, oil, or water [employer] threatened to shut off services in your [...] often do you attend chur ch or adventism services? More than 4 times per year 01/26/2025 Do you belong to any clubs o r organizations such as taoism groups, unions, fraternal or athletic groups, or [...] any time in the past 12 [facility], were you homeless or living in a care home (including now)? No 01/26/2025 Personal Safety Answer Date Recorded Have you ever been in or are you currently in a harmful physical or emotional relationship or is someone making you feel afraid or unsafe? Denies 01/26/2025 Comments No Sex and Gender Information Value Date Recorded Sex Assigned at Not on file Legal Sex Female 12:33 AM PEDIATRIC OCCUPATIONAL THERAPIST Gender Identity Female 06/06/2021 8:34 AM PEDIATRIC OCCUPATIONAL THERAPIST Sexual Orientation Straight 06/06/2021 8: 34 AM PEDIATRIC OCCUPATIONAL THERAPIST Obstetrics History Last Filed Vital Signs Vital [...] this topic Medical Devices Implanted Type Area Financial Analyst Accountant Device Identifier Shelf Expiration Date Model / Serial / Lot [employer]er[employer] 68-120 Natrelle 9cm Style 68mp Smooth Anterior Diaphragm Valve P3cm Latex Free - [id number] - [id number] Implanted:Qty: 1 on 03/16/2021 by Derrick Walker MD at [facility] Breast Left: Breast [employer] 04/09/2024 68-120 / [id number] / [employer] [id number] Alloderm Select [id number] Allograft Regenerative Freeze Dried - [id number] - [id number] Implanted:Qty: 1 on 12/24/2019 by Derrick Walker MD at [facility] Left: Breast [employer] 11/03/2020 [id number] / [id number] / [employer] [id number] Alloderm Select [id number] Allograft Regenerative Freeze Dried - [id number] - [id number] Implanted:Qty: 1 on 12/24/2019 by Derrick Walker MD at [facility] Right: Breast [employer] 10/04/2020 [id number] / [id number] / Synovis [employer] Allian [id number] [place] Microvascular 2.5mm Ring Pin Protective Cover Jaw Assembly Latex Free - [id number] Implanted:Qty: 1 on 04/06/2020 by Derrick Walker MD at [facility] Right: Breast [employer] 10/13/2024 [id number] / / [employer] [id number] [place] Microvascular 2.5mm Ring Pin Protective Cover Jaw Assembly Latex Free - [id number] Implanted:Qty: 1 on 04/06/2020 by Derrick Walker MD at [facility] Left: Breast [employer] Micro Mayday PAC Allian 10/23/2024 [id number] / / [id number] [employer] 68-120 Natrelle 9cm Style 68mp Smooth Anterior Diaphragm Valve P3cm Latex Free - [id number] - [id number] Implanted:Qty: 1 on 03/16/2021 by Derrick Walker MD at [facility] Left: Breast [employer] 08/30/2023 68-120 / [id number] / Explanted Type Area Financial Analyst Accountant Device Identifier Shelf Expiration Date Model / Serial / Lot Sientra Inc [id number] Allox2 15x13.8cm Texture Integrate Port Breast P6.4-7.9cm Full - [id number] Implanted:Qty: 1 on 12/24/2019 by Derrick Walker MD at [facility] Explanted:Qty: 1 on 04/06/2020 by Derrick Walker MD at [facility] Breast Left: Breast [employer] 11/03/2024 [id number] / / Sient[employer] Allox2-[id number] Allox2 15x13.8cm Texture Integrate Port Breast P6.4-7.9cm Full - [id number] Implanted:Qty: 1 on 12/24/2019 by Derrick Walker MD at [facility] Explanted:Qty: 1 on 04/06/2020 by Derrick Walker MD at [facility] Right: Breast [employer] 11/03/2024 [...] W MARY ANNE Routine 05/11/2015 11:49 AM PEDIATRIC OCCUPATIONAL THERAPIST from Last 3 Months or Most Recently Relevant to Health Maintenance Results * eGFR (01/26/2025 5:32 AM CDT) Pathologist [facility] eGFR 73 >=60 mL/min/1. 73 m2 Comment: [...] Yates MD LAB BLOOD ORDERABLES nal Result [facility] [address] [facility] Department [place] [address] * (ABNORMAL) Differential, auto (01/26/2025 5:32 AM CDT) [facility] Neutrophil abs 2.32 1.50 - 6.50 K/cumm Imm gran abs 0.01 0.00 - 0.10 K/cumm [facility] Lymphocyte abs 3.41(H) 0.80 - 3.30 K/cumm [facility] Monocyte abs 0.52 0.20 - 0.80 K/cumm [facility] Eosinophil abs 0.00 0.00 - 0.50 K/cumm [facility] Basophil abs 0.03 0.00 - 0.10 K/cumm [facility] Neutrophil pct 36.8 % [facility] Comment: Interpretive Data Percent cell count reference ranges are not reported, since discordance with absolute values may lead to misinterpretation of CBC data. Current Interpretive Data was last revised on 2017. Imm gran pct 0.2 % [facility] Comment: Interpretive Data Percent cell count reference ranges are not reported, since discordance with absolute values may lead to misinterpretation of CBC data. Current Interpretive Data was last revised on 2017. Lymphocyte pct 54.2 % [facility] Comment: Interpretive Data Percent cell count reference ranges are not reported, since discordance with absolute values may lead to misinterpretation of CBC data. Current Interpretive Data was last revised on 2017. Monocyte pct 8.3 % [facility] Comment: Interpretive Data Percent cell count reference ranges are not reported, since discordance with absolute values may lead to misinterpretation of CBC data. Current Interpretive Data was last revised on 2017. Eosinophil pct 0.0 % [facility] Comment: Interpretive Data Percent cell count reference ranges are not reported, since discordance with absolute values may lead to misinterpretation of CBC data. Current Interpretive Data was last revised on 2017. Basophil pct 0.5 % [facility] Comment: Interpretive Data Percent cell count reference ranges are not reported, since discordance with absolute values may lead to misinterpretation of CBC data. Current Interpretive Data was last revised on 2017. Blood 01/26/2025 5:32 AM CDT 01/26/2025 5:46 AM CDT us Sol Yates MD LAB BLOOD ORDERABLES [facility] Result [facility] [address] [facility] Department [place] [address] * CBC with auto differential (01/26/2025 5:32 AM CDT) WBC 6.29 3.80 - 9.90 K/cumm Hgb 12.9 11.9 - 15.5 g/dL [facility] Hct 38.1 35.6 - 45.5 % [facility] Plt 265 150 - 400 K/cumm [facility] MPV 9.1 9.1 - 12.3 fL [facility] RBC 4.24 3.90 - 5.20 M/cumm [facility] MCV 89.9 81.3 - 96.4 fL [facility] MCH 30.4 27.1 - 33.3 pg [facility] MCHC 33.9 32.3 - 35.7 g/dL [facility] RDW CV 13.5 11.1 - 14.9 % [facility] RDW SD 43.9 35.7 - 48.1 fL [facility] NRBC abs 0.00 0.00 - 0.01 K/cumm [facility] Blood 01/26/2025 5:32 AM CDT 01/26/2025 5:46 AM CDT Sol Yates MD LAB BLOOD ORDERABLES Fi nal Result Performing Organization Address City/[facility]/ZIP Co de Phone Number [address] [email or web address] [address] * Magnesium (01/26/2025 5:32 AM CDT) [facility] Magnesium 2.2 1.4 - 2.5 mg/dL Blood 01/26/2025 5:32 AM CDT 01/26/2025 5:46 AM CDT Sol Yates MD LAB BLOOD ORDERABLES Fi nal Result Performing Organization Address City/[facility]/ZIP Co de Phone Number [address] [email or web address] [address] * Comprehensive metabolic panel (01/26/2025 5:32 AM CDT) Pathologist [facility] Sodium 140 135 - 145 mmol/L Potassium, pl 3.3 3.3 - 4.9 mmol/L [facility] Chloride 105 97 - 110 mmol/L [facility] CO2 25 22 - 32 mmol/L [facility] Anion gap 10 2 - 15 mmol/L [facility] BUN 9 6 - 25 mg/dL [facility] Creatinine 0.96 0.60 - 1.10 mg/dL [facility] Glucose 123 70 - 199 mg/dL [facility] Comment: Interpretive Data Fasting glucose >/= 126 [...] 2022. Calcium 8.6 8.5 - 10.3 mg/dL [facility] Bilirubin, total 0.3 0.1 - 1.2 mg/dL [facility] Protein, pl 6.5 6.5 - 8.5 g/dL [facility] Albumin 3.7 3.5 - 5.0 g/dL [facility] Alk phos 108 40 - 130 Units/L [facility] ALT 24 7 - 45 Units/L [facility] AST 24 10 - 45 Units/L [facility] Blood 01/26/2025 5:32 AM CDT 01/26/2025 5:46 AM CDT Sol Yates MD LAB BLOOD ORDERABLES Fi nal Result Performing Organization Address City/State/[facility] Co de Phone Number [facility] [address] [facility] Department [place] [address] * POCT hCG, urine (01/26/2025 1:00 AM CDT) HCG, ur, POC Negative Negative Lot Number [id number] QC Backgroud Clear Acceptable QC Control Line Acceptable Urine 01/26/2025 1:00 AM CDT Sol Yates MD POINT OF CARE TEST ORDE RABLES Final Result * (ABNORMAL) Urinalysis reflex to microscopic and culture Urine (01/25/2025 10:03 PM CDT) Color, ur Straw Yellow Clarity, ur Clear Clear [facility] Specific gravity, ur 1.007 1.003 - 1.030 [facility] pH, urine 5.5 [facility] Comment: Interpretive Data U rine pH is affected by diet, medications, systemic acid-base disturbances, and renal tubular function. pH may affect urinary stone formation. For example, urine pH below 6.0 may help reduce the tendency for calcium phosphate stones and pH greater than 6.0 may reduce the tendency for uric acid stone formation. Source: [facility] Current Interpretive Data was last revised on 2017 Protein, ur ql Negative Negative [facility] Glucose, ur ql Negative Negative [facility] Ketones, ur Negative Negative [facility] Bilirubin, ur Negative Negative [facility] Blood, ur Negative Negative [facility] Urobilinogen, ur <2.0 <2.0 mg/dL [facility] Nitrite, ur Negative Negative [facility] Leukocyte esterase, ur 3+(A) Negative [facility] UA reflex comment Reflex to microscopic UA will be performed. [facility] Urine 01/25/2025 10:0 3 PM CDT 01/25/2025 10:06 PM CDT us Sol Yates MD LAB MICROBIOLOGY - [facility] ORDERABLES Final Result [facility] [address] [facility] Department [place] [address] * (ABNORMAL) Drugs of Abuse [...] 2023. Barbiturates, ur Not Detected CutOff 200ng/mL [facility] Comment: Interpretive Data - Barbiturates: Samples containing greater than 200 ng/mL secobarbital or other cross-reacting barbiturate compounds are reported as positive. False positive and false negative results are possible. Confirmatory testing required for definitive results. Current Interpretive Data was last reviewed 2023. Benzodiazepines, ur Screen Positive, presumptive (A) CutOff 100ng/mL [facility] Comment: Interpretive Data - Benzodiazepines: Samples containing greater than 100 ng/mL nordiazepam or other cross-reacting compounds are reported as positive. False positive and false negative results are possible. Confirmatory testing required for definitive results. Current Interpretive Data was last reviewed 2023. Cannabinoids, ur Not Detected CutOff 50 ng/mL [facility] Comment: Interpretive Data - Cannabinoids: Samples containing greater than 50 ng/mL delta-9 THC -COOH or other cross- reacting compounds are reported as positive. False positive and false negative results are possible. Confirmatory testing required for definitive results. Current Interpretive Data was last reviewed 2023. Cocaine, ur Screen Positive, presumptive (A) CutOff 150ng/mL [facility] Comment: Interpretive Data - Cocaine: Samples containing greater than 150 ng/mL benzoylecgonine or other cross- reacting compounds are reported as positive. False positive and false negative results are possible. Confirmatory testing required for definitive results. Current Interpretive Data was last reviewed 2023. Fentanyl, Ur Not Detected CutOff 5 ng/mL [facility] Comment: Interpretive Data - Fentanyl: Samples containing greater than 5 ng/mL norfentanyl, fentanyl, or other cross-reacting fentanyl compounds are reported as positive. False positive and false negative results are possible. Confirmatory testing required for definitive results. Current Interpretive Data was last reviewed 2023. Methadone, ur Not Detected CutOff 300ng/mL [facility] Comment: Interpretive Data - Methadone: Samples containing greater than 300 ng/mL d,l-methadone or other cross-reacting compounds are reported as positive. False positive and false negative results are possible. Confirmatory testing required for definitive results. Current Interpretive Data was last reviewed 2023. Opiates, ur Not Detected CutOff 300ng/mL [facility] Comment: Interpretive Data - Opiates: Samples containing greater than 300 ng/mL morphine or other cross-reacting compounds are reported as positive. False positive and false negative results are possible. Confirmatory testing required for definitive results. Current Interpretive Data was last reviewed 2023. Oxycodone, ur Not Detected CutOff 100ng/mL [facility] Comment: Interpretive Data - Oxycodone: Samples containing [...] PM CDT 01/25/2025 10:06 PM CDT Narrative [facility] - 01/25/2025 10:53 PM CDT Drug of Abuse screening is performed by immunoassay for medical purposes only. This is not to be used for Pain Management purposes. Sol Yates MD LAB URINE ORDERABLES nal Result [facility] [address] [facility] Department [place] [address] * (ABNORMAL) Urinalysis, microscopic only (01/25/2025 10:03 PM CDT) WBC, ur 0-5 0 - 5 /HPF RBC, ur 0-2 0 - 2 /HPF [facility] Epithelial cells, squamous, ur 1-5 0 - 5 /HPF [facility] Bacteria, ur Trace(A) [facility] Mucous, ur Present(A) [facility] Culture Reflex Comment Reflex conditions for urine culture (WBC >10) not met. [facility] Urine 01/25/2025 10:0 3 PM CDT 01/25/2025 10:06 PM CDT Sol Yates MD LAB URINE ORDERABLES Fi nal Result [facility] [address] Department [place] [address] * ECG 12 lead (01/25/2025 8:07 PM CDT) Ventricular Rate EKG/Min 108 BPM [facility] Atrial Rate 108 BPM [facility] SC-Interval (MSEC) 168 ms [facility] QRS-Interval (MSEC) 68 ms [facility] QT-Interval (MSEC) 342 ms [facility] QTc 458 ms [facility] P [place] 32 degrees [facility] R [place] 5 degrees [facility] T [place] 32 degrees [facility] Diagnosis Sinus tachycardia Possible Inferior infarct , age undetermined Abnormal ECG No previous ECGs available Confirmed by INOCENCIA DUQUE M.D. ([id number]) on 01/26/2025 10:43:48 PM [facility] 01/25/2025 8:07 PM CDT 01/26/2025 10:43 PM CDT Sol Yates MD ECG ORDERABLES Final R esult Performing Organization Address City/[facility] Co de Phone Number [facility] * eGFR (01/25/2025 7:59 PM CDT) eGFR [...] Yates MD LAB BLOOD ORDERABLES nal Result [facility] [address] [facility] Department [place] [address] * Differential, auto (01/25/2025 7:59 PM CDT) Neutrophil abs 4.71 1.50 - 6.50 K/cumm Imm gran abs 0.02 0.00 - 0.10 K/cumm [facility] Lymphocyte abs 3.01 0.80 - 3.30 K/cumm [facility] Monocyte abs 0.61 0.20 - 0.80 K/cumm [facility] Eosinophil abs 0.00 0.00 - 0.50 K/cumm [facility] Basophil abs 0.04 0.00 - 0.10 K/cumm [facility] Neutrophil pct 56.1 % [facility] Comment: Interpretive Data Percent cell count reference ranges are not reported, since discordance with absolute values may lead to misinterpretation of CBC data. Current Interpretive Data was last revised on 2017. Imm gran pct 0.2 % [facility] Comment: Interpretive Data Percent cell count reference ranges are not reported, since discordance with absolute values may lead to misinterpretation of CBC data. Current Interpretive Data was last revised on 2017. Lymphocyte pct 35.9 % [facility] Comment: Interpretive Data Percent cell count reference ranges are not reported, since discordance with absolute values may lead to misinterpretation of CBC data. Current Interpretive Data was last revised on 2017. Monocyte pct 7.3 % [facility] Comment: Interpretive Data Percent cell count reference ranges are not reported, since discordance with absolute values may lead to misinterpretation of CBC data. Current Interpretive Data was last revised on 2017. Eosinophil pct 0.0 % [facility] Comment: Interpretive Data Percent cell count reference [...] ORDERABLES Fi nal Result Performing Organization Address City/[facility]/ZIP Co de Phone Number [address] [email or web address] [address] * Thyroid Function [place] (01/25/2025 7:59 PM CDT) Pathologist [facility] TSH 1.73 0.30 - 4.20 mcIUnit/mL Blood 01/25/2025 7:59 PM CDT 01/25/2025 8:04 PM CDT Sol Yates MD LAB BLOOD ORDERABLES Fi nal Result Performing Organization Address [facility] Co de Phone Number [address] [address] * (ABNORMAL) CBC with auto differential (01/25/2025 7:59 PM CDT) Pathologist [facility] WBC 8.39 3.80 - 9.90 K/cumm Hgb 13.7 11.9 - 15.5 g/dL [facility] Hct 39.0 35.6 - 45.5 % [facility] Plt 304 150 - 400 K/cumm [facility] MPV 8.9(L) 9.1 - 12.3 fL [facility] RBC 4.42 3.90 - 5.20 M/cumm [facility] MCV 88.2 81.3 - 96.4 fL [facility] MCH 31.0 27.1 - 33.3 pg [facility] MCHC 35.1 32.3 - 35.7 g/dL [facility] RDW CV 13.2 11.1 - 14.9 % [facility] RDW SD 42.9 35.7 - 48.1 fL [facility] NRBC abs 0.00 0.00 - 0.01 K/cumm [facility] Blood Venous blood specimen / Unknown 01/25/2025 7:59 PM CDT 01/25/2025 8:04 PM CDT Sol Yates MD LAB BLOOD ORDERABLES Fi nal Result [facility] [address] [place] [address] * (ABNORMAL) Ethanol (01/25/2025 7:59 PM CDT) Ethanol 14(H) <=10 mg/dL Comment: Interpretive Data Legal limit of intoxication > or = 80 mg/dL Levels > or = 400 mg/dL are potentially TOXIC. Current interpretive data was last revised on 2018. Blood 01/25/2025 7:59 PM CDT 01/25/2025 8:04 PM CDT Sol Yates MD LAB BLOOD ORDERABLES Fi nal Result Performing Organization Address City/[facility]/ZIP Co de Phone Number [address] [place] [address] * (ABNORMAL) Comprehensive metabolic panel (01/25/2025 7:59 PM CDT) Sodium 140 135 - 145 mmol/L Potassium, pl 3.5 3.3 - 4.9 mmol/L [facility] Chloride 104 97 - 110 mmol/L [facility] CO2 21(L) 22 - 32 mmol/L [facility] Anion gap 15 2 - 15 mmol/L [facility] BUN 9 6 - 25 mg/dL [facility] Creatinine 1.00 0.60 - 1.10 mg/dL [facility] Glucose 122 70 - 199 mg/dL [facility] Comment: Interpretive Data Fasting glucose >/= 126 [...] 2022. Calcium 8.9 8.5 - 10.3 mg/dL [facility] Bilirubin, total 0.4 0.1 - 1.2 mg/dL [facility] Protein, pl 7.4 6.5 - 8.5 g/dL [facility] Albumin 4.3 3.5 - 5.0 g/dL [facility] Alk phos 112 40 - 130 Units/L [facility] ALT 30 7 - 45 Units/L [facility] AST 28 10 - 45 Units/L [facility] Blood 01/25/2025 7:59 PM CDT 01/25/2025 8:04 PM CDT us Sol Yates MD LAB BLOOD ORDERABLES Fi nal Result [facility] [address] [facility] Department [place] [address] * eGFR (01/22/2025 6:09 AM CDT) eGFR [...] Final Resul t [facility] ([place]) [address] [facility] Department of Laboratories [place], [place] [address] * (ABNORMAL) CBC without differential (01/22/2025 6:09 [...] NP LAB BLOOD ORDERABLES Final Resul t [facility] 1 [facility] [place] [address] * Comprehensive metabolic panel (01/22/2025 6:09 AM [...] Final Resul t KORY DELANEY ([place]) 1 [facility] [place] [address] * Urinalysis reflex to microscopic and culture [...] tendency for uric acid stone formation. Source: [facility] Current Interpretive Data was last revised on [...] STUART Final Result KORY DELANEY ([place]) 1 [facility] [place] [address] * (ABNORMAL) Drugs of Abuse Screen, Urine without Confirmation (01/21/2025 1:10 AM CDT) Pathologist [facility] Amphetamine, ur Screen Positive, presumptive (A) CutOff [...] used for Pain Management purposes. Marilu Stan NETWORK CONTROL SUPERVISOR LAB URINE ORDERABLES Final Resul t [facility]ORY DELANE[facility] ([place]) 1 [place] [address] * Sepsis Lactate w/ Reflex (01/21/2025 12:41 AM CDT) Sepsis Lactate 1.5 0.7 - 2.0 mmol/L Blood 01/21/2025 12:4 1 AM CDT 01/21/2025 12:41 AM CDT [facility] BLOOD ORDERABLES Final Resul t Performing Organization Address [facility] Co de Phone Number KORY DELANEY ([place]) 1 [place] [address] * eGFR (01/21/2025 12:41 AM CDT) eGFR [...] BLOOD ORDERABLES Final Resul t KORY DELANE[facility] ([place]) 1 [facility] [place] [address] * Differential, auto (01/21/2025 12:41 AM CDT) Neutrophil abs 3.53 1.50 - 6.50 K/cumm Imm gran abs 0.01 0.00 - 0.10 K/cumm [facility] ([place]) Lymphocyte abs 3.13 0.80 - 3.30 K/cumm [facility] ([place]) Monocyte abs 0.38 0.20 - 0.80 K/cumm [facility] ([place]) Eosinophil abs 0.00 0.00 - 0.50 K/cumm [facility] ([place]) Basophil abs 0.04 0.00 - 0.10 K/cumm [facility] ([place]) Neutrophil pct 49.8 % [facility] ([place]) Comment: Interpretive Data Percent cell count reference ranges are not reported, since discordance with absolute values may lead to misinterpretation of CBC data. Current Interpretive Data was last revised on 2017. Imm gran pct 0.1 % [facility] ([place]) Comment: Interpretive Data Percent cell count reference [...] 2017. Monocyte pct 5.4 % [facility] ([place]) Comment: Interpretive Data Percent cell count reference ranges are not reported, since discordance with absolute values may lead to misinterpretation of CBC data. Current Interpretive Data was last revised on 2017. Eosinophil pct 0.0 % [facility] ([place]) Comment: Interpretive Data Percent cell count reference [...] Final Resul t [facility] ([place]) 1 [facility] [place] [address] * (ABNORMAL) CBC with auto differential (01/21/2025 [...] Final Resul t [facility] ([place]) 1 [facility] [place] [address] * Comprehensive metabolic panel (01/21/2025 12:41 AM [...] ORDERABLES Final Resul t Performing Organization Address City/[facility]/ZIP Co de Phone Number [facility] [place]) 1 [facility] [place] [email or web address] [address] * (ABNORMAL) Ethanol (01/20/2025 7:05 PM CDT) [...] ORDERABLES Final Resu lt Performing Organization Address [facility] Co de Phone Number [facility] ([place]) 1 [facility] [email or web address] [address] * DIAGNOSTIC MAMMOGRAM BILATERAL W MARY ANNE (05/11/2015 11:49 AM PEDIATRIC OCCUPATIONAL THERAPIST) Anatomical Region Laterality Modality Breast Bilateral Mammography 05/11/2015 11:4 9 AM PEDIATRIC OCCUPATIONAL THERAPIST Narrative 05/11/2015 11:11 PM PEDIATRIC OCCUPATIONAL THERAPIST SCREENING MAMM W MARY ANNE BI Acc#: [id number] Screening Mamm Bi Acc#: [id number] DATE OF EXAM: May 11 2015 Performed [...] Fax: -- Attending Fax: -- Attending ID: [id number] Requesting ID: [id number] Report To 1 ID: [id number] Report To 1 Name: ROD DUQUE Report To 1 FAX: -- NextGen Order #: Procedure Note Provider, MD Manuelito - 10/31/2016 SCREENING MAMM W MARY ANNE BI Acc#: [id number] Screening Mamm Bi Acc#: [id number] DATE OF EXAM: May 11 2015 Performed [...] Fax: -- Attending Fax: -- Attending ID: [id number] Requesting ID: [id number] Report To 1 ID: [id number] Report To 1 Name: ROD DUQUE Report To 1 FAX: -- NextGen Order #: Historical Provider MD KUHN MAMMO PROCEDURES Margarita l Result from Last 3 Months or Most Recently Relevant to Health Maintenance Insurance [facility] Advance Directives For more information, please contact: [phone] * Full Code (Latest Code Status on [...] 8:35 PM 04/10/2020 6:28 PM Care Teams Windows Desktop Engineer Relationship Specialty Start Date End Date Arianne Alarcon NP [address] [place] [address] PCP - General 04/24/17 Derirck Walker MD [address] [place] [address] Consulting Physician Plastic Surgery 12/25/19
--- OUTSIDE RECORDS SUMMARY | 2025-02-11 12:22 | XMS_ITS | Encounter Summary ---
Author Organization [facility] Address [address] [place] [address] Phone Care Team Providers Care Material Handling Warehouse Supervisor Name Role Phone Jack Dukse MD Unavailable [phone] Arianne Alarcon APRN, VOCATIONAL EDUCATION TEACHER Primary Care Provider [phone] Lito Chatterjee MD Unavailable [phone] Gustabo Falk MD Unavailable [phone] Amrit Goddard MD Unavailable Phan Grant MD Unavailable [phone] Reason for Visit * Reason Comments Medication Refill Encounter Details Date Type Department Care Team (Late st Contact Info) Description 11/17/2020 Refill [facility] - Neurology - [place] [address] [place] [address] Jack Dukes MD [address] [place] [address] Medication Refill Social History Tobacco Use Types Packs/Day Years Used Date Smoking Tobacco: Never Smokeless Tobacco: Never Alcohol Use Standard Drinks/Week Comments No 0 (1 standard drink = 0.6 oz pur e alcohol) Comments No Sex and Gender Information Value Date Recorded Sex Assigned at Not on file Legal Sex Female 2:52 AM SUPERVISOR VENEER Gender Identity Not on file Sexual Orientation Not on file 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 Not on file Not on [...] Info) Description 02/17/2025 10:15 AM CDT Telemedicine [facility] Medical [facility] - Neurology [facility] #2 [place] [address] Jack Dukes MD [address]2 [place] [address] 08/25/2025 2:00 PM SUPERVISOR VENEER Office Visit [facility] Oncology Services [address] [place] [address] Phan Grant MD [address] [place] [address] Discharge Disposition: Discharged to home or Selfcare documented as of this encounter Visit Diagnoses Diagnosis Seizures (HCC) Other convulsions documented in this encounter Care Teams Material Handling Warehouse Supervisor Relationship Specialty Start Date End Date Arianne Alarcon APRN, ROMEL [address] [place] [address] PCP - General Family Medicine 08/29/16 Jack Dukes MD [address] [place] [address] Consulting Physician Neurology 08/21/16 Lito Chatterjee MD [address] [place] [address] Consulting Physician General Surgery 04/27/19 Gustabo Falk MD [address] [address] Consulting Physician Radiation Oncology 04/27/19 Amrit Goddard MD [address] [address] Consulting Physician General Surgery 06/08/19 Phan Grant MD [address] [place] [address] Consulting Physician Medical Oncology 02/16/20 documented as of this encounter
--- OUTSIDE RECORDS SUMMARY | 2025-02-11 12:22 | XMS_ITS | Encounter Summary ---
Author Organization [facility] Address [address] [place] [address] Phone Care Team Providers Care Pipe Machine Operator Name Role Phone Jack Dukes MD Unavailable [phone] Arianne Alarcon APRN, FRAME REPAIRER Primary Care Provider [phone] Lito Chatterjee MD Unavailable [phone] Gustabo Falk MD Unavailable [phone] Amrit Goddard MD Unavailable Phan Grant MD Unavailable [phone] Reason for Visit * Reason Comments Medication Refill Encounter Details Date Type Department Care Team (Late st Contact Info) Description 05/24/2022 Refill [facility] - Neurology [facility] #[address] [place] [address] Jack Dukes MD [address] [place] [address] Medication Refill Social History Tobacco Use Types Packs/Day Years Used Date Smoking Tobacco: Never Smokeless Tobacco: Never Alcohol Use Standard Drinks/Week Comments No 0 (1 standard drink = 0.6 oz pur e alcohol) Comments No Sex and Gender Information Value Date Recorded Sex Assigned at Not on file Legal Sex Female 2:52 AM PROCUREMENT BUYER Gender Identity Not on file Sexual Orientation Not on file 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 Not on file Not on file documented as of this encounter Plan of Treatment Upcoming Encounters Date Type Department Care Team (Late st Contact Info) Description 02/17/2025 10:15 AM CDT Telemedicine [facility] [address] [place] [address] Jack Dukes MD [address]2 [place] [address] 08/25/2025 2:00 PM PROCUREMENT BUYER Office Visit [facility] Oncology Services [address] [place] [address] Phan Grant MD [address] [place] [address] Discharge Disposition: Discharged to home or Selfcare documented as of this encounter Visit Diagnoses Diagnosis Seizures (HCC) Other convulsions documented in this encounter Care Teams Pipe Machine Operator Relationship Specialty Start Date End Date Arianne Alarcon APRN, CNP [address] [place] [address] PCP - General Family Medicine 08/29/16 Jack Dukes MD [address] [place] [address] Consulting Physician Neurology 08/21/16 Lito Chatterjee MD [address] [place] [address] Consulting Physician General Surgery 04/27/19 Gustabo Falk MD [address] [place] [address] Consulting Physician Radiation Oncology 04/27/19 Amrit Goddard MD [address] [address] Consulting Physician General Surgery 06/08/19 Phan Grant MD [address] [place] [address] Consulting Physician Medical Oncology 02/16/20 documented as of this encounter
--- OUTSIDE RECORDS SUMMARY | 2025-02-11 12:22 | XMS_ITS | Encounter Summary ---
Author Organization [facility] Address [address] [place] [address] Phone Care Team Providers Care Ribbing Machine Operator Name Role Phone Jack Dukes MD Unavailable [phone] Arianne Alarcon APRN, CALENDER LET OFF OPERATOR Primary Care Provider [phone] Lito Chatterjee MD Unavailable [phone] Gustabo Falk MD Unavailable [phone] Amrit Goddard MD Unavailable Phan Grant MD Unavailable [phone] Reason for Visit * Reason Comments Medication Refill Encounter Details Date Type Department Care Team (Late st Contact Info) Description 06/26/2022 Refill [facility] - Neurology [facility] #[address] [place] [address] Jack Dukes MD [address] [place] [address] Medication Refill Social History Tobacco Use Types Packs/Day Years Used Date Smoking Tobacco: Never Smokeless Tobacco: Never Alcohol Use Standard Drinks/Week Comments No 0 (1 standard drink = 0.6 oz pur e alcohol) Comments No Sex and Gender Information Value Date Recorded Sex Assigned at Not on file Legal Sex Female 2:52 AM DIRECTOR CARDIOVASCULAR Gender Identity Not on file Sexual Orientation Not on file 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) documented in this encounter Care Teams Ribbing Machine Operator Relationship Specialty Start Date End Date Arianne Alarcon APRN, CNP [address] [place] [address] PCP - General Family Medicine 08/29/16 Jack Dukes MD [address] [place] [address] Consulting Physician Neurology 08/21/16 Lito Chatterjee MD [address] [place] [address] Consulting Physician General Surgery 04/27/19 Gustabo Falk MD [address] [place] [address] Consulting Physician Radiation Oncology 04/27/19 Amrit Goddard MD #2 [facility] [address] [place] [address] Consulting Physician General Surgery 06/08/19 Phan Grant MD [address] [place] [address] Consulting Physician Medical Oncology 02/16/20 documented as of this encounter
--- OUTSIDE RECORDS SUMMARY | 2025-02-11 12:22 | XMS_ITS | Encounter Summary ---
Author Organization [facility] Address [address] [place] [address] Phone Care Team Providers Care Environmental Compliance Engineer Name Role Phone Jack Dukes MD Unavailable [phone] Arianne Alarcon APRN, SOCIAL WORK PROGRAM COORDINATOR Primary Care Provider [phone] Lito Chatterjee MD Unavailable [phone] Gustabo Falk MD Unavailable [phone] Amrit Goddard MD Unavailable Phan Grant MD Unavailable [phone] Reason for Visit * Reason Comments Medication Refill Encounter Details Date Type Department Care Team (Late st Contact Info) Description 12/06/2020 [facility]ill [facility] - [place] [address] [place] [address] Jack Dukes MD [address] [place] [address] Medication Refill Social History Tobacco Use Types Packs/Day Years Used Date Smoking Tobacco: Never Smokeless Tobacco: Never Alcohol Use Standard Drinks/Week Comments No 0 (1 standard drink = 0.6 oz pur e alcohol) Comments No Sex and Gender Information Value Date Recorded Sex Assigned at Not on file Legal Sex Female 2:52 AM FIBERGLASS BOAT ASSEMBLY SUPERVISOR Gender Identity Not on file Sexual Orientation Not on file 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) documented in this encounter Care Teams Environmental Compliance Engineer Relationship Specialty Start Date End Date Arianne Alarcon APRN, ROMEL [address] [place] [address] PCP - General Family Medicine 08/29/16 Jack Dukes MD [address] [place] [address] Consulting Physician Neurology 08/21/16 Lito Chatterjee MD [address] [place] [address] Consulting Physician General Surgery 04/27/19 Gustabo Falk MD [address] [address] Consulting Physician Radiation Oncology 04/27/19 Amrit Goddard MD #[address] [address] Consulting Physician General Surgery 06/08/19 Phan Grant MD [address] [place] [address] Consulting Physician Medical Oncology 02/16/20 documented as of this encounter
--- OUTSIDE RECORDS SUMMARY | 2025-02-11 12:22 | XMS_ITS | Encounter Summary ---
Author Organization [facility] Address [address] [place] [address] Phone Care Team Providers Care Crop Duster Helper Name Role Phone Jack Dukes MD Unavailable [phone] Arianne Alarcon APRN, DETECTIVE Primary Care Provider [phone] Lito Chatterjee MD Unavailable [phone] Gustabo Falk MD Unavailable [phone] Amrit Goddard MD Unavailable Phan Grant MD Unavailable [phone] Reason for Visit * Reason Comments Medication Refill Encounter Details Date Type Department Care Team (Late st Contact Info) Description 05/30/2021 Refill [facility] - Neurology [facility] #[address] [place] [address] Jack Dukes MD [address] [place] [address] Medication Refill Social History Tobacco Use Types Packs/Day Years Used Date Smoking Tobacco: Never Smokeless Tobacco: Never Alcohol Use Standard Drinks/Week Comments No 0 (1 standard drink = 0.6 oz pur e alcohol) Comments No Sex and Gender Information Value Date Recorded Sex Assigned at Not on file Legal Sex Female 2:52 AM CHIEF INFORMATION SECURITY OFFICER Gender Identity Not on file Sexual Orientation Not on file 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 No / Unsure 05/22/2021 11:16 PM CHIEF INFORMATION SECURITY OFFICER documented as of this encounter Plan of Treatment Upcoming Encounters Date Type Department Care Team (Late st Contact Info) Description 02/17/2025 10:15 AM CDT Telemedicine [facility] Neurology [facility] [address] [place] [address] Jack Dukes MD [address] [place] [address] 08/25/2025 2:00 PM CHIEF INFORMATION SECURITY OFFICER Office Visit [facility] Oncology Services [address] [place] [address] Phan Grant MD [address] [place] [address] Discharge Disposition: Discharged to home or Selfcare documented as of this encounter Visit Diagnoses Diagnosis 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) documented in this encounter Care Teams Crop Duster Helper Relationship Specialty Start Date End Date Arianne Alarcon APRN, ROMEL [address] [place], [place] [phone] PCP - General Family Medicine 08/29/16 Jack Dukes MD [address] [place] [address] Consulting Physician Neurology 08/21/16 Lito Chatterjee MD [address] [place] [address] Consulting Physician General Surgery 04/27/19 Gustabo Falk MD [address] [address] Consulting Physician Radiation Oncology 04/27/19 Amrit Goddard MD #[address] [address] Consulting Physician General Surgery 06/08/19 Phan Grant MD [address] [place] [address] Consulting Physician Medical Oncology 02/16/20 documented as of this encounter
--- OUTSIDE RECORDS SUMMARY | 2025-02-11 12:22 | XMS_ITS | Encounter Summary ---
Author Organization [facility] Address [address] [place] [address] Phone Care Team Providers Care Professor Of Geology Name Role Phone Jack Dukes MD Unavailable [phone] Arianne Alarcon APRN, CNP Primary Care Provider [phone] Lito Chatetrjee MD Unavailable Gustabo Falk MD Unavailable [phone] Amrit Goddard MD Unavailable Phan Grant MD Unavailable [phone] Reason for Visit * Reason Comments Medication Refill Encounter Details Date Type Department Care Team (Late st Contact Info) Description 05/22/2020 [facility] [address] [place] [address] Phan Grant MD [address] [place] [address] Medication Refill Social History Tobacco Use Types Packs/Day Years Used Date Smoking Tobacco: Never Smokeless Tobacco: Never Alcohol Use Standard Drinks/Week Comments No 0 (1 standard drink = 0.6 oz pur e alcohol) Comments No Sex and Gender Information Value Date Recorded Sex Assigned at Not on file Legal Sex Female 2:52 AM INSURANCE AGENCY MANAGER Gender Identity Not on file Sexual Orientation Not on file 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 No / Unsure 05/22/2020 3:41 PM INSURANCE AGENCY MANAGER documented as of this encounter Miscellaneous Notes * Telephone Encounter - Tanya Hylton APN, CNP - 05/26/2020 2:17 PM INSURANCE AGENCY MANAGER Refill Lorazepam 0.5 mg tabs, 1 tab BID as needed. # 60 tabs, 3 refills. RANCE AGENCY MANAGER documented in this encounter Plan of Treatment Upcoming Encounters Date Type Department Care Team (Late st Contact Info) Description 02/17/2025 10:15 AM CDT Telemedicine [facility] #[address] [place] [address] Jack Dukes MD #[address] [place] [address] 08/25/2025 2:00 PM INSURANCE AGENCY MANAGER Office Visit [facility] Oncology Services [address] [place] [address] Phan Grant MD [address] [place] [address] Discharge Disposition: Discharged to home or Selfcare documented as of this encounter Visit Diagnoses Not on filedocumented in this encounter Care Teams Professor Of Geology Relationship Specialty Start Date End Date Arianne Alarcon APRN, CNP [address] [place] [address] PCP - General Family Medicine 08/29/16 Jack Dukes MD [address] [place] [address] Consulting Physician Neurology 08/21/16 Lito Chatterjee MD [address] [place] [address] Consulting Physician General Surgery 04/27/19 Gustabo Falk MD [address] [place] [address] Consulting Physician Radiation Oncology 04/27/19 Amrit Goddard MD #[address] [address] Consulting Physician General Surgery 06/08/19 Phan Grant MD [address] [place] [address] Consulting Physician Medical Oncology 02/16/20 documented as of this encounter
--- OUTSIDE RECORDS SUMMARY | 2025-02-11 12:22 | XMS_ITS | Clinical Summary ---
Author Organization [facility] Address [address] [place] [address] Phone Care Team Providers Care Fund Accountant Name Role Phone Jack Dukes MD Unavailable [phone] Arianne Alarcon APRN, TECHNOLOGY RECRUITER Primary Care Provider [phone] Lito Chatterjee MD Unavailable [phone] Gustabo Fakl MD Unavailable [phone] Amrit Goddard MD Unavailable Phan Grant MD Unavailable [phone] Allergies Active Allergy Reactions Criticality Noted Date [...] from 04/27/2019:Stage IIB(cT2, cN0, cM0, G3, ER+, NV-, HER2-) - Signed by Gustabo Falk MD on 04/28/2019 Pathologic stage from 04/27/2019:Stage IIB(pT2, pN1mi(sn), cM0, G3, ER+, NV-, HER2-) - Unsigned Premenopausal patient 04/22/2019 Seizures [...] Type Department Care Team Description 11/12/2024 Telephone [facility] - [facility]rology - [place] #[address] [place] [address] Jack Dukes MD 11/12/2024 [facility] [place] [facility]2 [place] [address] Jack Dukes MD Medication Refill from Last [...] on file Legal Sex Female 2:52 AM RADON INSPECTOR Gender Identity Not on file Sexual Orientation Not on file 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 Not on file Not on file Not on file Last Filed Vital Signs Vital Sign Reading Time Taken Comments Blood Pressure 131/87 08/26/2024 1:50 PM RADON INSPECTOR Pulse 92 08/26/2024 1:50 PM RADON INSPECTOR Temperature 36.6 C (97.9 F) 08/26/2024 1:50 PM RADON INSPECTOR Respiratory Rate 18 08/26/2024 1:50 PM RADON INSPECTOR Oxygen Saturation 98% 08/26/2024 1:50 PM RADON INSPECTOR Inhaled Oxygen Concentration - - Weight 67.3 kg (148 lb 4.8 oz) 08/26/2024 1:50 P M RADON INSPECTOR Height 165.1 cm (5' 5) 07/09/2024 8:05 PM RADON INSPECTOR Body Mass Index 24.68 07/09/2024 8:05 PM RADON INSPECTOR Plan of Treatment Upcoming Encounters Date Type Department Care Team (Late st Contact Info) Description 02/17/2025 10:15 AM CDT Telemedicine [facility] Neurology [facility] #[address] [place] [address] Jack Dukes MD [address] [place] [address] 08/25/2025 2:00 PM RADON INSPECTOR Office Visit [facility] - [facility] Oncology Services [address] [place] [address] Phan Grant MD [address] [place] [address] Discharge Disposition: Discharged to home or Selfcare [...] this topic Medical Devices Implanted Type Area Cnc Mechanic Device Identifier Shelf Expiration Date Model / Serial / Lot Port Implantable Infusion Powerport Mri Airguard Chronoflex 8fr 1 Lumen Attachable Cath Intermediate - [id number] Implanted:Qty: 1 on 05/11/2019 by Lito Chatterjee MD at [facility] IMPLANT Left: Chest BARD ACCESS SYSTEMS 11/03/2020 [id number] / [id number] / [id number] Procedures Procedure Name Priority Date/Time Associated Diagnosis [...] Comparison is made to exam dated: 03/15/2019 [facility]. BREAST TISSUE:There are scattered fibroglandular densities [...] signed by: Mya Patel M.D. ll/:10/12/2019 15:03:41 Billet Assembler: Lisa Eaton)([place]), [facility] letter sent: Birad 3 Followup Reading location: [facility] OVERALL STUDY BIRADS: 3 Probably benign Procedure [...] Comparison is made to exam dated: 03/15/2019 [facility]. BREAST TISSUE:There are scattered fibroglandular densities [...] signed by: Mya Patel M.D. ll/:10/12/2019 15:03:41 Billet Assembler: Lisa Eaton)(M), [facility] letter sent: Birad 3 Followup Reading location: [facility] OVERALL STUDY BIRADS: 3 Probably benign us Lito Chatterjee MD IMG MAMMO ORDERABLES Final Result from Last 3 Months or Most Recently Relevant to Health Maintenance Insurance [place]ICA[place] Advance Directives Documents on File Type Date Recorded Patient Supervisor Cook Room Expl anation Power of Sheet Metal Assembler And Riveter for Health Care 05/27/2019 11:53 AM POA-HC 05/27/19 Advance Care Planning Discussion 05/27/2019 11:33 AM ACP DISCUSSION RECOR D 05/27/19 Care Teams Fund Accountant Relationship Specialty Start Date End Date Arianne Alarcon APRN, CNP [address] [place] [address] PCP - General Family Medicine 08/29/16 Jack Dukes MD [address] [place] [address] Consulting Physician Neurology 08/21/16 Lito Chatterjee MD [address] [place] [address] Consulting Physician General Surgery 04/27/19 Gustabo Falk MD [address] [place] [address] Consulting Physician Radiation Oncology 04/27/19 Amrit Goddard MD #[address] [address] Consulting Physician General Surgery 06/08/19 Phan Grant MD [address] [place] [address] Consulting Physician Medical Oncology 02/16/20
--- OUTSIDE RECORDS SUMMARY | 2025-02-11 12:22 | XMS_ITS | Encounter Summary ---
Author Organization [facility] Address [address] [place] [address] Phone Care Team Providers Care Aircraft Inspector Name Role Phone Jack Dukes MD Unavailable [phone] Arianne Alarcon APRN, NUTRITION INTERN Primary Care Provider [phone] Lito Chatterjee MD Unavailable [phone] Gustabo Falk MD Unavailable [phone] Amrit Goddard MD Unavailable Phan Grant MD Unavailable [phone] Reason for Visit * Reason Comments Medication Refill Encounter Details Date Type Department Care Team (Late st Contact Info) Description 03/22/2022 Refill [facility] - Neurology [facility] #2 [place] [address] Jack Dukes MD [address] [place] [address] Medication Refill Social History Tobacco Use Types Packs/Day Years Used Date Smoking Tobacco: Never Smokeless Tobacco: Never Alcohol Use Standard Drinks/Week Comments No 0 (1 standard drink = 0.6 oz pur e alcohol) Comments No Sex and Gender Information Value Date Recorded Sex Assigned at Not on file Legal Sex Female 2:52 AM PHYTOCHEMISTRY PROFESSOR Gender Identity Not on file Sexual Orientation Not on file 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 Not on file Not on file documented as of this encounter Plan of Treatment Upcoming Encounters Date Type Department Care Team (Late st Contact Info) Description 02/17/2025 10:15 AM CDT Telemedicine [facility] #[address] [place] [address] Jack Dukes MD [address] [place] [address] 08/25/2025 2:00 PM PHYTOCHEMISTRY PROFESSOR Office Visit [facility] Oncology Services [address] [place] [address] Phan Grant MD [address] [place] [address] Discharge Disposition: Discharged to home or Selfcare documented as of this encounter Visit Diagnoses Diagnosis Seizures (HCC) Other convulsions documented in this encounter Care Teams Aircraft Inspector Relationship Specialty Start Date End Date Arianne Alarcon APRN, CNP [address] [place] [address] PCP - General Family Medicine 08/29/16 Jack Dukes MD [address] [place] [address] Consulting Physician Neurology 08/21/16 Lito Chatterjee MD [address] [place] [address] Consulting Physician General Surgery 04/27/19 Gustabo Falk MD [address] [place] [address] Consulting Physician Radiation Oncology 04/27/19 Amrit Goddard MD [address] [address] Consulting Physician General Surgery 06/08/19 Phan Grant MD [address] [place] [address] Consulting Physician Medical Oncology 02/16/20 documented as of this encounter
--- OUTSIDE RECORDS SUMMARY | 2025-02-11 12:22 | XMS_ITS | Encounter Summary ---
Author Organization [facility] Address [address] [facility] [place] [address] Phone Care Team Providers Care Editing Clerk Name Role Phone Jack Dukes MD Unavailable [phone] Arianne Alarcon APRN, CNP Primary Care Provider [phone] Lito Chatterjee MD Unavailable Gustabo Falk MD Unavailable [phone] Amrit Goddard MD Unavailable Phan Grant MD Unavailable [phone] Reason for Visit * Reason Comments Medication Refill Encounter Details Date Type Department Care Team (Late st Contact Info) Description 06/20/2020 [facility] [address] [place] [address] Phan Grant MD [address] [place] [address] Medication Refill Social History Tobacco Use Types Packs/Day Years Used Date Smoking Tobacco: Never Smokeless Tobacco: Never Alcohol Use Standard Drinks/Week Comments No 0 (1 standard drink = 0.6 oz pur e alcohol) Comments No Sex and Gender Information Value Date Recorded Sex Assigned at Not on file Legal Sex Female 2:52 AM STATION MANAGER Gender Identity Not on file Sexual Orientation Not on file 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 Date Job End Date 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 No / Unsure 06/08/2020 9:05 AM STATION MANAGER documented as of this encounter Miscellaneous Notes * Telephone Encounter - Nikki Martin RN - 06/21/2020 2:16 PM STATION MANAGER Lorazepam called into pharmacy previous refill not received by pharmacy ION MANAGER documented in this encounter Plan of Treatment Upcoming Encounters Date Type Department Care Team (Late st Contact Info) Description 02/17/2025 10:15 AM CDT Telemedicine [facility] Neurology [facility] #2 [place] [address] Jack Dukes MD [address] [place] [address] 08/25/2025 2:00 PM STATION MANAGER Office Visit [facility] - [facility] Center Oncology Services [address] [place] [address] Phan Grant MD [address] [place] [address] Discharge Disposition: Discharged to home or Selfcare documented as of this encounter Visit Diagnoses Not on filedocumented in this encounter Care Teams Editing Clerk Relationship Specialty Start Date End Date Arianne Alarcon APRN, SHEEP AND WHEAT FARMER [address] [place] [id number] PCP - General Family Medicine 08/29/16 Jack Dukes MD [address] [place] [address] Consulting Physician Neurology 08/21/16 Lito Chatterjee MD [address] [place] [address] Consulting Physician General Surgery 04/27/19 Gustabo Falk MD [address] [place] [address] Consulting Physician Radiation Oncology 04/27/19 Amrit Goddard MD [address] [address] Consulting Physician General Surgery 06/08/19 Phan Grant MD [address] [place] [address] Consulting Physician Medical Oncology 02/16/20 documented as of this encounter
--- OUTSIDE RECORDS SUMMARY | 2025-02-11 12:22 | XMS_ITS | Continuity of Care Document ---
Author Organization [facility] Address [address] [address] [place] [address] Phone Care Team Providers Care Commercial Loan Officer Name Role Phone Massimo Herring MD Unavailable [...] Diagnoses Date Provider Providers Copied on Encounter [facility], [address] [facility] [place], [id number], tel:[phone] [facility] Medicine No Information [address] [employer] [facility] [place], [address] , [place]. tel:[phone] Referring Provider: Massimo Herring, [address] [place], [place], [address]. tel:[phone] OFFICE/OUTPAT IENT VISIT, [facility], [address], [place], [address], tel:[phone] [facility] Seizure (chief complaint) depression (chief complaint) ADD (chief complaint) back pain (chief complaint) Epilepsy, unspecified, without mention of intractable epilepsyLumbago [address] [place], [place], [address] , . tel:[phone] Referring Provider: Massimo Herring, [address] [place], [place], [address]. tel:[phone] Family History Family Member Type Diagnosis Age [...]
--- OUTSIDE RECORDS SUMMARY | 2025-02-11 12:22 | XMS_ITS | Encounter Summary ---
Author Organization [facility] Address [address] [place] [address] Phone Care Team Providers Care Powder Worker Name Role Phone Jack Dukes MD Unavailable [phone] Arianne Alarcon APRN, GLASS LOADING EQUIPMENT TENDER Primary Care Provider [phone] Lito Chatterjee MD Unavailable [phone] Gustabo Falk MD Unavailable [phone] Amrit Goddard MD Unavailable Phan Grant MD Unavailable [phone] Reason for Visit * Reason Comments Medication Refill Encounter Details Date Type Department Care Team (Late st Contact Info) Description 12/08/2021 Refill [facility] - Neurology [facility] [address] [place] [address] Jack Dukes MD [address] [place] [address] Medication Refill Social History Tobacco Use Types Packs/Day Years Used Date Smoking Tobacco: Never Smokeless Tobacco: Never Alcohol Use Standard Drinks/Week Comments No 0 (1 standard drink = 0.6 oz pur e alcohol) Comments No Sex and Gender Information Value Date Recorded Sex Assigned at Not on file Legal Sex Female 2:52 AM IMPREGNATOR AND DRIER HELPER Gender Identity Not on file Sexual Orientation Not on file 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 Oncology Services [address] [place] [address] Phan Grant MD [address] [place] [address] Discharge Disposition: Discharged to home or Selfcare documented as of this encounter Visit Diagnoses Diagnosis Seizures (HCC) Other convulsions documented in this encounter Care Teams Powder Worker Relationship Specialty Start Date End Date Arianne Alarcon APRN, ROMEL [address] [place] [address] PCP - General Family Medicine 08/29/16 Jack Dukes MD [address] [place] [address] Consulting Physician Neurology 08/21/16 Lito Chatterjee MD [address] [place] [address] Consulting Physician General Surgery 04/27/19 Gustabo Falk MD [address] [address] Consulting Physician Radiation Oncology 04/27/19 Amrit Goddard MD [address] [address] Consulting Physician General Surgery 06/08/19 Phan Grant MD [address] [place] [address] Consulting Physician Medical Oncology 02/16/20 documented as of this encounter
--- OUTSIDE RECORDS SUMMARY | 2025-02-11 12:22 | XMS_ITS | Encounter Summary ---
Author Organization [facility] Address [address] [place] [address] Phone Care Team Providers Care Commercial Real Estate Paralegal Name Role Phone Jack Dukes MD Unavailable [phone] Arianne Alarcon APRN, GEOPHYSICAL LABORATORY DIRECTOR Primary Care Provider [phone] Lito Chatterjee MD Unavailable [phone] Gustabo Falk MD Unavailable [phone] Amrit Goddard MD Unavailable Phan Grant MD Unavailable [phone] Reason for Visit * Reason Comments Medication Refill Encounter Details Date Type Department Care Team (Late st Contact Info) Description 09/10/2023 Refill [facility] [address] [place] [address] Jack Dukes MD [address] [place] [address] Medication Refill Social History Tobacco Use Types Packs/Day Years Used Date Smoking Tobacco: Never Smokeless Tobacco: Never Alcohol Use Standard Drinks/Week Comments No 0 (1 standard drink = 0.6 oz pur e alcohol) Comments No Sex and Gender Information Value Date Recorded Sex Assigned at Not on file Legal Sex Female 2:52 AM LINK TRAINER MECHANIC Gender Identity Not on file Sexual Orientation Not on file 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 Not on file Not on file [...] 90 days and meeting all other requirements TRAINER MECHANIC documented in this encounter Plan of Treatment Upcoming Encounters Date Type Department Care Team (Late st Contact Info) Description 02/17/2025 10:15 AM CDT Telemedicine [facility] [address] [place] [address] Jack Dukes MD [address] [place] [address] 08/25/2025 2:00 PM LINK TRAINER MECHANIC Office Visit [facility] Oncology Services [address] [place] [address] Phan Grant MD [address] [place] [address] Discharge Disposition: Discharged to home or Selfcare documented as of this encounter Visit Diagnoses Diagnosis Seizures (HCC) Other convulsions documented in this encounter Care Teams Commercial Real Estate Paralegal Relationship Specialty Start Date End Date Agnes ArianneLISA king CNP [address] [place] [address] PCP - General Family Medicine 08/29/16 Jack Dukes MD [address] [place] [address] Consulting Physician Neurology 08/21/16 Lito Chatterjee MD [address] [place] [address] Consulting Physician General Surgery 04/27/19 Gustabo Falk MD [address] [place] [address] Consulting Physician Radiation Oncology 04/27/19 Amrit Goddard MD [address]2 [facility] [address] [address] Consulting Physician General Surgery 06/08/19 Phan Grant MD [address] [place] [address] Consulting Physician Medical Oncology 02/16/20 documented as of this encounter
--- OUTSIDE RECORDS SUMMARY | 2025-02-11 12:22 | XMS_ITS | Encounter Summary ---
Author Organization [facility] Address [address] [facility] [place] [address] Phone Care Team Providers Care Metal Cabinet Finisher Name Role Phone Jack Dukes MD Unavailable [phone] Arianne Alarcon APRN, CNP Primary Care Provider [phone] Lito Chatterjee MD Unavailable [phone] Gustabo Falk MD Unavailable [phone] Amrit Goddard MD Unavailable Phan Grant MD Unavailable [phone] Reason for Visit * Reason Comments Medication Refill Encounter Details Date Type Department Care Team (Late st Contact Info) Description 06/09/2020 [facility] [address] [place] [address] Phan Grant MD [address] [place] [address] Medication Refill Social History Tobacco Use Types Packs/Day Years Used Date Smoking Tobacco: Never Smokeless Tobacco: Never Alcohol Use Standard Drinks/Week Comments No 0 (1 standard drink = 0.6 oz pur e alcohol) Comments No Sex and Gender Information Value Date Recorded Sex Assigned at Not on file Legal Sex Female 2:52 AM DAIRY LAB TECHNICIAN Gender Identity Not on file Sexual Orientation Not on file 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 No / Unsure 06/08/2020 9:05 AM DAIRY LAB TECHNICIAN documented as of this encounter Miscellaneous Notes * Telephone Encounter - Tanya Hylton APN, CNP - 06/12/2020 1:04 PM DAIRY LAB TECHNICIAN Filled 2 weeks ago. Y LAB TECHNICIAN * Telephone Encounter - Maria Del Carmen Brasher RN - 06/12/2020 1:03 PM CST Request denied; last filled 05/22/20 with 3 refills. Y LAB TECHNICIAN * Telephone Encounter - Maria Del Carmen Brasher RN - 06/12/2020 11:44 AM CST Okay to refill Lorazepam for Lu? Last fill 2 weeks ago. Y LAB TECHNICIAN documented in this encounter Plan of Treatment Upcoming Encounters Date Type Department Care Team (Late st Contact Info) Description 02/17/2025 10:15 AM CDT Telemedicine [facility] Neurology [facility] [address] [place] [address] Jack Dukes MD [address] [place] [address] 08/25/2025 2:00 PM DAIRY LAB TECHNICIAN Office Visit [facility] - [facility] Center Oncology Services [address] [place] [address] Phan Grant MD [address] [place] [address] Discharge Disposition: Discharged to home or Selfcare documented as of this encounter Visit Diagnoses Not on filedocumented in this encounter Care Teams Metal Cabinet Finisher Relationship Specialty Start Date End Date Arianne Alarcon APRNROMEL [address] [place] [address] PCP - General Family Medicine 08/29/16 Jack Dukes MD [address] [place] [address] Consulting Physician Neurology 08/21/16 Lito Chatterjee MD [address] [place] [address] Consulting Physician General Surgery 04/27/19 Gustabo Falk MD [address] [place] [address] Consulting Physician Radiation Oncology 04/27/19 Amrit Goddard MD [address] [address] Consulting Physician General Surgery 06/08/19 Phan Grant MD [address] [place] [address] Consulting Physician Medical Oncology 02/16/20 documented as of this encounter
--- OUTSIDE RECORDS SUMMARY | 2025-02-11 12:22 | XMS_ITS | Encounter Summary ---
Author Organization [facility] Address [address] [place] [address] Phone Care Team Providers Care Geological Engineer Name Role Phone Jack Dukes MD Unavailable [phone] Arianne Alarcon APRN, GAS PLANT REPAIRER Primary Care Provider [phone] Lito Chatterjee MD Unavailable [phone] Gustabo Falk MD Unavailable [phone] Amrit Goddard MD Unavailable Phan Grant MD Unavailable [phone] Reason for Visit * Reason Comments Medication Refill Encounter Details Date Type Department Care Team (Late st Contact Info) Description 04/25/2022 Refill [facility] #2 [place] [address] Jack Dukes MD [address] [place] [address] Medication Refill Social History Tobacco Use Types Packs/Day Years Used Date Smoking Tobacco: Never Smokeless Tobacco: Never Alcohol Use Standard Drinks/Week Comments No 0 (1 standard drink = 0.6 oz pur e alcohol) Comments No Sex and Gender Information Value Date Recorded Sex Assigned at Not on file Legal Sex Female 2:52 AM SUGAR DRIER Gender Identity Not on file Sexual Orientation Not on file 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 Date 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 Not on file Not on file Not on file documented as of this encounter Plan of Treatment Upcoming Encounters Date Type Department Care Team (Late st Contact Info) Description 02/17/2025 10:15 AM CDT Telemedicine [facility] #[address] [place] [address] Jack Dukes MD [address] [place] [address] 08/25/2025 2:00 PM SUGAR DRIER Office Visit [facility] Oncology Services [address] [place] [address] Phan Grant MD [address] [place] [address] Discharge Disposition: Discharged to home or Selfcare documented as of this encounter Visit Diagnoses Diagnosis Seizures (HCC) Other convulsions documented in this encounter Care Teams Geological Engineer Relationship Specialty Start Date End Date Arianne Alarcon APRN, CNP [address] [place] [address] PCP - General Family Medicine 08/29/16 Jack Dukes MD [address] [place] [address] Consulting Physician Neurology 08/21/16 Lito Chatterjee MD [address] [place] [address] Consulting Physician General Surgery 04/27/19 Gustabo Falk MD [address] [place] [address] Consulting Physician Radiation Oncology 04/27/19 Amrit Goddard MD #[address] [address] Consulting Physician General Surgery 06/08/19 Phan Grant MD [address] [place] [address] Consulting Physician Medical Oncology 02/16/20 documented as of this encounter
--- OUTSIDE RECORDS SUMMARY | 2025-02-11 12:22 | XMS_ITS | Clinical Summary ---
Author Organization [facility] Address [address] [facility] [place] [address] Care Team Providers Care Press Hand Supervisor Name Role Phone Alarcon, Arianne FLORES Primary Care Provider [phone] [facility],non-owned Affiliates and Associated Physician Practices is amultiple site organization consisting of ambulatory clinics and hospital sitesin [place], [place], [place] and [place]. This disclosure is being madepursuant to the Care Everywhere program and may not contain all information available regarding this patient. Last updated 18.[facility] Allergies Active Allergy Reactions Criticality Noted Date [...] PM CDT Legal Sex Female 6:31 AM PARK GUARD Gender Identity Female 05/02/2022 12:48 PM CDT [...] - 26 mg/dL 03/07/2022 5:42 AM CDT [facility] Creatinine 0.70 0.56 - 0.96 mg/dL 03/07/2022 5:42 AM T [facility] Sodium 145 136 - 145 mmol/L 03/07/2022 5:42 AM T [facility] Potassium 3.9 3.5 - 4.5 mmol/L 03/07/2022 5:42 AM [facility] Chloride 112(H) 98 - 107 mmol/L 03/07/2022 5:42 AM [facility] CO2 22 22 - 29 mmol/L 03/07/2022 5:42 AM [facility] Glucose 131(H) 70 - 115 mg/dL 03/07/2022 5:42 AM [facility] Calcium 8.3(L) 8.4 - 10.2 mg/dL 03/07/2022 5:42 AM [facility] Anion Gap 15 8 - 18 03/07/2022 5:42 AM [facility] BUN/Creatinine Ratio 14 7 - 23 03/07/2022 5:42 AM [facility] Osmolality Calculated 301(H) 270 - 300 mOsm/kg 03/07/2022 5:42 AM [facility] eGFR by CKD-EPI >90 >=90 mL/min/1.7 3 m2 03/07/2022 5:42 AM [facility] Blood BLOOD SPECIMEN / Unknown Venipuncture / Unknown 03/07/2022 5:08 AM T 03/07/2022 5:14 AM [facility] Feroz Salazar MD LAB - CHEMISTRY ORDERABLES Final Result [facility] [address] [place] [address], [facility] [phone] from Last 3 Months or Most Recently Relevant to Health Maintenance Insurance [place] [address] [facility] Care Teams Press Hand Supervisor Relationship Specialty Start Date End Date Arianne Alarcon APRN-FARM EQUIPMENT ENGINE MECHANIC [address] [place] [address] PCP - General 10/08/19
--- OUTSIDE RECORDS SUMMARY | 2025-02-11 12:22 | XMS_ITS | Encounter Summary ---
Author Organization [facility] Address [address] [place] [address] Phone Care Team Providers Care Radio Frequency Technician Name Role Phone Jack Dukes MD Unavailable [phone] Arianne Alarcon APRN, CHIMNEY SUPERVISOR BRICK Primary Care Provider [phone] Lito Chatterjee MD Unavailable [phone] Gustabo Falk MD Unavailable [phone] Amrit Goddard MD Unavailable Phan Grant MD Unavailable [phone] Reason for Visit * Reason Comments Medication Refill Encounter Details Date Type Department Care Team (Late st Contact Info) Description 10/29/2024 Refill [facility] - Neurology [facility] [address] [place] [address] Jack Dukes MD [address] [place] [address] Medication Refill Social History Tobacco Use Types Packs/Day Years Used Date Smoking Tobacco: Never Smokeless Tobacco: Never Alcohol Use Standard Drinks/Week Comments No 0 (1 standard drink = 0.6 oz pur e alcohol) Comments No Sex and Gender Information Value Date Recorded Sex Assigned at Not on file Legal Sex Female 2:52 AM TEST AND BALANCE ENGINEER Gender Identity Not on file Sexual Orientation Not on file 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) documented in this encounter Care Teams Radio Frequency Technician Relationship Specialty Start Date End Date Arianne Alarcon APRN, CNP [address] [place] [address] PCP - General Family Medicine 08/29/16 Jack Dukes MD [address] [place] [address] Consulting Physician Neurology 08/21/16 Lito Chatterjee MD [address] [place] [address] Consulting Physician General Surgery 04/27/19 Gustabo Falk MD [address] [place] [address] Consulting Physician Radiation Oncology 04/27/19 Amrit Goddard MD [address] [facility] [address] [place] [address] Consulting Physician General Surgery 06/08/19 Phan Grant MD [address] [place] [address] Consulting Physician Medical Oncology 02/16/20 documented as of this encounter
--- OUTSIDE RECORDS SUMMARY | 2025-02-11 12:22 | XMS_ITS | Encounter Summary ---
Author Organization [facility] Address [address] [place] [address] Phone Care Team Providers Care Senior Agricultural Assistant Name Role Phone Jack Dukes MD Unavailable [phone] Arianne Alarcon APRN, CRIMINALIST Primary Care Provider [phone] Lito Chatterjee MD Unavailable [phone] Gustabo Falk MD Unavailable [phone] Amrit Goddard MD Unavailable Phan Grant MD Unavailable [phone] Reason for Visit * Reason Comments Medication Refill Encounter Details Date Type Department Care Team (Late st Contact Info) Description 02/17/2023 Refill [facility] - Neurology [facility] [address] [place] [address] Jack Dukes MD [address] [place] [address] Medication Refill Social History Tobacco Use Types Packs/Day Years Used Date Smoking Tobacco: Never Smokeless Tobacco: Never Alcohol Use Standard Drinks/Week Comments No 0 (1 standard drink = 0.6 oz pur e alcohol) Comments No Sex and Gender Information Value Date Recorded Sex Assigned at Not on file Legal Sex Female 2:52 AM ENGINE REPAIR SUPERVISOR Gender Identity Not on file Sexual Orientation Not on file 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 Showing future appointments within next 90 days and meeting all other requirements documented in this encounter Plan of Treatment Upcoming Encounters Date Type Department Care Team (Late st Contact Info) Description 02/17/2025 10:15 AM CDT Telemedicine [facility] Neurology [facility] [address] [place] [address] Jack Dukes MD [address] [place] [address] 08/25/2025 2:00 PM ENGINE REPAIR SUPERVISOR Office Visit [facility] Oncology Services [address] [place] [address] Phan Grant MD [address] [place] [address] Discharge Disposition: Discharged to home or Selfcare documented as of this encounter Visit Diagnoses Diagnosis 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) documented in this encounter Care Teams Senior Agricultural Assistant Relationship Specialty Start Date End Date Arianne Alarcon APRROMEL Whipple [address] [place] [address] PCP - General Family Medicine 08/29/16 Jack Dukes MD [address] [place] [address] Consulting Physician Neurology 08/21/16 Lito Chatterjee MD [address] [place] [address] Consulting Physician General Surgery 04/27/19 Gustabo Falk MD [address] [place] [address] Consulting Physician Radiation Oncology 04/27/19 Amrit Goddard MD [address] [address] Consulting Physician General Surgery 06/08/19 [place] [address] [place] [address] Consulting Physician Medical Oncology 02/16/20 documented as of this encounter
--- OUTSIDE RECORDS SUMMARY | 2025-02-11 12:22 | XMS_ITS | Encounter Summary ---
Author Organization [facility] Address [address] [place] [address] Phone Care Team Providers Care Clerical Clerk Name Role Phone Jack Dukes MD Unavailable [phone] Arianne Alarcon APRN, WEAVING INSPECTOR Primary Care Provider [phone] Lito Chatterjee MD Unavailable [phone] Gustabo Falk MD Unavailable [phone] Amrit Goddard MD Unavailable Phan Grant MD Unavailable [phone] Reason for Visit * Reason Comments Medication Refill Encounter Details Date Type Department Care Team (Late st Contact Info) Description 02/22/2020 Refill [facility] - Neurology - [place] [address] [place] [address] Jack Dukes MD [address] [place] [address] Medication Refill Social History Tobacco Use Types Packs/Day Years Used Date Smoking Tobacco: Never Smokeless Tobacco: Never Alcohol Use Standard Drinks/Week Comments No 0 (1 standard drink = 0.6 oz pur e alcohol) Comments No Sex and Gender Information Value Date Recorded Sex Assigned at Not on file Legal Sex Female 2:52 AM DISTRIBUTOR SALES MANAGER Gender Identity Not on file Sexual Orientation Not on file 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) documented in this encounter Care Teams Clerical Clerk Relationship Specialty Start Date End Date Arianne Alarcon APRN, ROMEL [address] [place], [place] [id number] PCP - General Family Medicine 08/29/16 Jack Dukes MD [address] [place] [address] Consulting Physician Neurology 08/21/16 iLto Chatterjee MD [address] [place] [address] Consulting Physician General Surgery 04/27/19 Gustabo Falk MD [address] [address] Consulting Physician Radiation Oncology 04/27/19 Amrit Goddard MD [address] [address] Consulting Physician General Surgery 06/08/19 Phan Grant MD [address] [place] [address] Consulting Physician Medical Oncology 02/16/20 documented as of this encounter
--- OUTSIDE RECORDS SUMMARY | 2025-02-11 12:22 | XMS_ITS | Encounter Summary ---
Author Organization [facility] Address [address] [place] [address] Phone Care Team Providers Care Artist Scientific Name Role Phone Jack Dukes MD Unavailable [phone] Arianne Alarcon APRN, CATERING ASSISTANT Primary Care Provider [phone] Lito Chatterjee MD Unavailable [phone] Gustabo Falk MD Unavailable [phone] Amrit Goddard MD Unavailable Phan Grant MD Unavailable [phone] Reason for Visit * Reason Comments Medication Refill Encounter Details Date Type Department Care Team (Late st Contact Info) Description 01/01/2023 Refill [facility] - Neurology [facility] [address] [place] [address] Jack Dukes MD [address] [place] [address] Medication Refill Social History Tobacco Use Types Packs/Day Years Used Date Smoking Tobacco: Never Smokeless Tobacco: Never Alcohol Use Standard Drinks/Week Comments No 0 (1 standard drink = 0.6 oz pur e alcohol) Comments No Sex and Gender Information Value Date Recorded Sex Assigned at Not on file Legal Sex Female 2:52 AM HOSE MENDER Gender Identity Not on file Sexual Orientation Not on file 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 Showing future appointments within next 90 days and meeting all other requirements documented in this encounter Plan of Treatment Upcoming Encounters Date Type Department Care Team (Late st Contact Info) Description 02/17/2025 10:15 AM CDT Telemedicine [facility] Neurology [facility] [address] [place] [address] Jack Dukes MD [address] [place] [address] 08/25/2025 2:00 PM HOSE MENDER Office Visit [facility] Oncology Services [address] [place] [address] Phan Grant MD [address] [place] [address] Discharge Disposition: Discharged to home or Selfcare documented as of this encounter Visit Diagnoses Diagnosis Seizures (HCC) Other convulsions documented in this encounter Care Teams Artist Scientific Relationship Specialty Start Date End Date Arianne Alarcon APRN, CNP [address] [place] [address] PCP - General Family Medicine 08/29/16 Jack Dukes MD [address] [place] [address] Consulting Physician Neurology 08/21/16 Lito Chatterjee MD [address] [place] [address] Consulting Physician General Surgery 04/27/19 Gustabo Falk MD [address] [place] [address] Consulting Physician Radiation Oncology 04/27/19 Amrit Goddard MD [address] [address] Consulting Physician General Surgery 06/08/19 [place] [address] [place] [address] Consulting Physician Medical Oncology 02/16/20 documented as of this encounter
--- OUTSIDE RECORDS SUMMARY | 2025-02-11 12:22 | XMS_ITS | Clinical Summary ---
Author Organization [facility] Address [address] [place] [address] Care Team Providers Care Costume Technician Name Role Phone Unavailable Primary Care Provider [...] Comments Blood Pressure 102/70 06/15/2015 9:24 AM AGENCY TRAINER Pulse 78 06/15/2015 9:24 AM AGENCY TRAINER Temperature - - Respiratory Rate - - Oxygen Saturation - - Inhaled Oxygen Concentration - - Weight 68 kg (150 lb) 06/15/2015 9:24 AM AGENCY TRAINER Height 167.6 cm (5' 6) 06/15/2015 9:24 AM AGENCY TRAINER Body Mass Index 24.21 06/15/2015 9:24 AM AGENCY TRAINER Plan of Treatment Health Maintenance Due Date [...]
[2025-02-11 12:37] LABS: Hematocrit 40.4 % (37.0-47.0); Hemoglobin 13.3 g/dL (12.0-15.0); Immature Granulocyte Percent A 0.3 % (0-0.5); Lymphocytes Absolute Auto 1.85 K/mm3 (0.9-3.2); Mean Corpuscular HGB Conc 32.9 g/dl (32-36); Mean Corpuscular Hemoglobin 30.0 pg (26-34); Mean Corpuscular Volume 91.0 fl (80-100); Nucleated Red Blood Cells Absolute Auto 0.000 K/mm3 (0.0-0.012); Nucleated Red Blood Cells Perc 0.0 % (0.0-0.2); Platelet Count Result 241 k/mm3 (150-375); Red Blood Count 4.44 M/mm3 (4.2-5.4); White Blood Count 6.5 K/mm3 (4.5-10.0)
[2025-02-11 12:44] LABS: Add Urine Microscopic? YES; Appearance Urine Clear (Clear); Glucose Urine UA Negative (Negative); Leukocyte Esterase Ur 3+ LEU/UL (Negative); Nitrate Urine Negative (Negative); Non Pathogenic Casts 0-2; Specific Grav Ur 1.016 (1.001-1.035)
[2025-02-11] MEDS: LACTATED RINGERS 1,000 ML 999 ML IV CONT ×2 (12:45→13:50)
[2025-02-11 12:49] LABS: INR 1.0; Partial Thromboplastin Time 26.9 Seconds (22.3-36.8); Prothrombin Time 12.7 Seconds (11.1-14.7)
--- NOTE | 2025-02-11 12:56 | ED.GENADULT ---
HPI - General Adult General Chief complaint: Headache Stated complaint: eyes foggy, here 02/10/25 Time Seen by Provider: 02/11/25 12:04 History of Present Illness HPI narrative: 49 year female present to the emergency department for evaluation still feeling foggy headed. Patient reports that she does have a history seizures and does take Vimpat and Lamictal, patient is currently at chest not and has not been treated with them bed. Yesterday patient describes having a seizure or possible vasovagal episode. Was evaluated in discharge back to facility. Patient states she is still having symptoms of foggy headedness. Patient denies any chest pain or shortness of breath. Patient is well-appearing at time of evaluation. Related Data Home Medications ?Medication ?Instructions ?Recorded ?Confirmed ?Last Taken ?Type escitalopram oxalate 20 mg tablet 20 mg PO DAILY 12/02/19 04/10/22 Unknown History lamotrigine 200 mg tablet 200 mg PO BID 12/02/19 04/10/22 Unknown History zolpidem 5 mg tablet 5 mg PO HS PRN Sleep 12/02/19 04/10/22 Unknown History bupropion HCl 150 mg tablet,12 hr mg PO 07/08/24 Unknown History sustained-release omeprazole 20 mg capsule,delayed mg 10/11/24 Unknown History release Allergies Allergy/AdvReac Type Severity Reaction Status Date / Time Sulfa (Sulfonamide Allergy Severe Swelling Verified 02/11/25 11:15 Antibiotics) Penicillins Allergy Intermediate Difficulty Verified 02/11/25 11:15 Breathing tramadol Allergy Mild Seizure Verified 02/11/25 11:15 Review of Systems Review of Systems: All systems reviewed & are unremarkable except as noted in HPI and below PMFSH Past Medical History Medical History Depression Epilepsy History of recent chemotherapy Finished 10/14/19 Breast cancer Surgical History Surgical History History of ovarian cystectomy Bilateral 2001 and 2002 History of tubal ligation Hx of appendectomy 1993 History of lumpectomy of right breast Family History Family History Mother Hypertension Family history of diabetes mellitus in first degree relative Interstitial lung disease Father Asthma Grandparent Carcinoma of colon Social History Social History Smoking status: Never smoker Second hand tobacco smoke exposure: No Alcohol intake: never Living arrangements: with family Gender identity (if verbalized by the patient): Female Exam Narrative: APPEARANCE: Well appearing, no pain, no distress, well-nourished. HEAD: normocephalic, atraumatic. EYES: PERRLA/EOMI, conjunctivae clear. NOSE: Normal no drainage EARS:TMS clear with good light reflex. THROAT: Pharynx clear, no exudate. NECK: Supple. No adenopathy, no masses. RESPIRATORY: Airway patent, respirations nonlabored. Clear to auscultation bilaterally, no rales, rhonchi, wheezing. CARDIOVASCULAR: Regular rate and rhythm without murmurs rubs or gallops. ABDOMINAL: Soft, nontender, nondistended, normal bowel sounds MUSCULOSKELETAL: Moves all extremities. Strength/ROM intact, No edema, No calf tenderness. NEURO: Alert. Cranial nerves II through XII intact. Good gait. Good coordination SKIN: Warm, dry. Normal Color Course Vital Signs Vital signs: Vital Signs Temperature 99.2 F 02/11/25 11:19 Pulse Rate 91 02/11/25 11:19 Respiratory Rate 16 02/11/25 11:19 Blood Pressure 107/64 02/11/25 11:19 Pulse Oximetry 97 02/11/25 11:19 Oxygen Delivery Room Air 02/11/25 11:19 Temperature 99.2 F 02/11/25 11:19 Pulse Rate 89 02/11/25 13:46 Respiratory Rate 16 02/11/25 13:46 Blood Pressure 93/63 L 02/11/25 13:46 Pulse Oximetry 100 02/11/25 13:31 Oxygen Delivery Room Air 02/11/25 11:19 Medical Decision Making MDM Narrative Medical decision making narrative: 49-year-old female presented emergency department for evaluation for foggy headedness. States she has not been taking her Vimpat and this was restarted the emergency department. Patient had a negative head CT showing no acute intracranial abnormality. Patient is afebrile with no leukocytosis hemoglobin of 13.3. Patient has an INR 1.0. Patient has no acute abnormalities on her CMP including normal kidney function. Patient does have leukocyte esterase positive with high white blood cells with no bacteria. Patient denies any urinary symptoms, urine culture was ordered. Patient was treated with 2 L of lactated Ringer's and does feel improved. Patient will be discharged back to [facility] not and be restarted on her Vimpat, 100 mg p.o. b.i.d.. Differential Diagnosis Differential Diagnosis: Subdural hematoma, subarachnoid hemorrhage, vasovagal, medication noncompliance, seizure,, UTI Vital Signs Vital Signs: Vital Signs Temperature 99.2 F 02/11/25 11:19 Pulse Rate 91 02/11/25 11:19 Respiratory Rate 16 02/11/25 11:19 Blood Pressure 107/64 02/11/25 11:19 Pulse Oximetry 97 02/11/25 11:19 Oxygen Delivery Room Air 02/11/25 11:19 Temperature 99.2 F 02/11/25 11:19 Pulse Rate 89 02/11/25 13:46 Respiratory Rate 16 02/11/25 13:46 Blood Pressure 93/63 L 02/11/25 13:46 Pulse Oximetry 100 02/11/25 13:31 Oxygen Delivery Room Air 02/11/25 11:19 Lab Data Lab results reviewed: Yes I reviewed the patient's lab results. 02/11/25 12:31 02/11/25 12:31 Labs: Lab Results 02/11/25 02/11/25 Range/Units 12:30 12:31 WBC 6.5 (4.5-10.0) K/mm3 RBC 4.44 (4.2-5.4) M/mm3 Hgb 13.3 (12.0-15.0) g/dL Hct 40.4 (37.0-47.0) % MCV 91.0 (80-100) fl MCH 30.0 (26-34) pg MCHC 32.9 (32-36) g/dl RDW 12.7 (11.5-14.5) % Plt Count 241 (150-375) k/mm3 MPV 8.5 (7.4-10.4) fl Immature Gran % (Auto) 0.3 (0-0.5) % Neut % (Auto) 59.8 (45.5-73.1) % Lymph % (Auto) 28.7 (18.3-44.2) % Baxter % (Auto) 8.8 H (2.6-8.5) % Eos % (Auto) 1.9 (0-4.4) % Baso % (Auto) 0.5 (0.2-1.2) % Lymph # (Auto) 1.85 (0.9-3.2) K/mm3 Baxter # (Auto) 0.6 (0.1-0.6) K/mm3 Eos # (Auto) 0.1 (0-0.3) K/mm3 Baso # (Auto) 0.0 (0.0-0.1) K/mm3 Abs Immat Gran (auto) 0.02 (0.00-0.031) K/mm3 Absolute Neuts (auto) 3.9 (1.3-6.7) K/mm3 Absolute Nucleated RBC 0.000 (0.0-0.012) K/mm3 Nucleated RBC % 0.0 (0.0-0.2) % PT 12.7 (11.1-14.7) Seconds INR 1.0 APTT 26.9 (22.3-36.8) Seconds Sodium 140 (137-145) mmol/L Potassium 4.2 (3.4-5.0) mmol/L Chloride 103 (98-107) mmol/L Carbon Dioxide 29 (22-30) mmol/L Anion Gap 8 (4-12) mmol/L BUN 8 (7-17) mg/dL Creatinine 0.95 (0.7-1.0) mg/dL Estim Creat Clear Calc 65 ml/min Estimated GFR > 60 (59 - ) Glucose 109 (65-110) mg/dL Lactic Acid 1.2 (0.7-2.0) mmol/L Calcium 9.2 (8.4-10.2) mg/dL Total Bilirubin 0.4 (0.2-1.3) mg/dL AST 44 H (14-36) U/L ALT 32 (6-35) U/L Alkaline Phosphatase 70 (38-126) U/L Total Protein 7.5 (6.3-8.2) g/dL Albumin 4.0 (3.5-5.1) g/dL Urine Color Yellow (Yellow) Urine Appearance Clear (Clear) Urine pH 6.0 (5.0-9.0) Ur Specific Mears 1.016 (1.001-1.035) Urine Protein Negative (Negative) mg/dL Urine Glucose (UA) Negative (Negative) mg/dL Urine Ketones Negative (Negative) mg/dL Ur Blood (Man) Negative (Negative) Urine Nitrate Negative (Negative) Urine Bilirubin Negative (Negative) Urine Urobilinogen 0.2 (<2.0) mg/dL Leukocyte Esterase Rfl 3+ H (Negative) GALEN/UL Urine RBC 0-2 (0-2) /hpf Urine WBC 21-50 H (0-3) /hpf Ur Squamous Epith Cells Occasional (Few) /hpf Urine Bacteria None seen /hpf Urine Casts 0-2 Imaging Data Radiologist's impression: Impressions Head CT 02/11/25 12:44 IMPRESSION: 1. No acute intracranial abnormality. Discharge Plan Discharge Clinical Impression: Headache Patient Disposition: Home Condition: Stable Instructions: Antibiotic Form, Epilepsy (DC), Alcohol Withdrawal (DC) Additional Instructions: You have a urine culture pending. You may receive a call in the next 24-48 hours to start antibiotic if the urine culture is concerning. Resume taking your Vimpat as directed. Have close follow-up with your physicians. If you have any worsening symptoms then please call or return to the emergency department. Patient Language: Armenian Prescriptions: New lacosamide [Vimpat] 100 mg tablet 100 mg PO Q12H 30 Days Qty: 60 0RF No Action cetirizine [Zyrtec] 10 mg tablet 10 mg PO DAILY PRN (Reason: angioedema) Qty: 30 0RF zolpidem 5 mg Tablet 5 mg PO HS PRN (Reason: Sleep) lamotrigine 200 mg Tablet 200 mg PO BID escitalopram oxalate 20 mg Tablet 20 mg PO DAILY bupropion HCl 150 mg tablet sustained-release 12 hr PO omeprazole 20 mg capsule,delayed release(DR/EC) clindamycin HCl 300 mg capsule 300 mg PO Q8H 7 Days Qty: 21 0RF Follow-up/Referrals: Agnes,Arianne Parks APN [Primary Care Provider] -
[2025-02-11 13:01] LABS: Alanine Aminotransferase 32 U/L (6-35); Albumin Level 4.0 g/dL (3.5-5.1); Alkaline Phosphatase 70 U/L (38-126); Anion Gap 8 mmol/L (4-12); Aspartate Amino Transferase 44 U/L (14-36); Bilirubin,Total 0.4 mg/dL (0.2-1.3); Blood Urea Nitrogen 8 mg/dL (7-17); Calcium 9.2 mg/dL (8.4-10.2); Carbon Dioxide 29 mmol/L (22-30); Chloride 103 mmol/L (98-107); Estimated CRCL calculation 65 ml/min; Estimated Glomerular Filt Rate > 60; Glucose 109 mg/dL (65-110); Potassium 4.2 mmol/L (3.4-5.0); Sodium 140 mmol/L (137-145); Total Protein 7.5 g/dL (6.3-8.2)
[2025-02-11] MEDS: LACOSAMIDE (*CRX) 100 MG TABLET PO (14:00)
== END 2025-02-11 15:02 | disposition home or self-care (01) ==
PROVIDERS: Emergency Provider Emergency Medicine; PCP Nurse Practitioner Family
DX: R51.9 Headache, unspecified (principal); G40.909 Epilepsy, unspecified, not intractable, without status epilepticus; Z85.3 Personal history of malignant neoplasm of breast
CPT/HCPCS: 36415; 70450; 80053; 81001; 83605; 85025; 85610; 85730; 87086; 96360; 96361; 99284; A9270; J7120

== ENCOUNTER 2025-02-17 16:56 | Emergency (ER) | payer OTHER, SELFPAY ==
--- OUTSIDE RECORDS SUMMARY | 2025-02-17 16:58 | XMS_ITS | Clinical Summary ---
Author Organization [facility] Address [address] [place] [address] Care Team Providers Care Deaf/Hard Of Hearing Specialist Name Role Phone Alarcon, Arianne FLORES Primary Care Provider [phone] Source Comments [facility],non-owned Affiliates and Associated Physician Practices is amultiple site organization consisting of ambulatory clinics and hospital sitesin [place], [place], [place] and [place]. This disclosure is being madepursuant to the Care Everywhere program and may not contain all information available regarding this patient. Last updated 18.[facility] Allergies Active Allergy Reactions Criticality Noted Date [...] PM CDT Legal Sex Female 6:31 AM TIMBER SELECTOR Gender Identity Female 05/02/2022 12:48 PM CDT [...] 26 mg/dL 03/07/2022 5:42 AM CDT [facility] Creatinine 0.70 0.56 - 0.96 mg/dL 03/07/2022 5:42 AM T [facility] Sodium 145 136 - 145 mmol/L 03/07/2022 5:42 AM T [facility] Potassium 3.9 3.5 - 4.5 mmol/L 03/07/2022 5:42 AM [facility] Chloride 112(H) 98 - 107 mmol/L [...] 03/07/2022 5:08 AM T 03/07/2022 5:14 AM [facility] Feroz Salazar MD LAB - CHEMISTRY ORDERABLES Final Result [facility] [address] [place] [address], [facility] [phone] from Last 3 Months or Most Recently Relevant to Health Maintenance [place] [place] [address] [facility] Care Teams Deaf/Hard Of Hearing Specialist Relationship Specialty Start Date End Date Arianne Alarcon APRN-OUTSIDE PLANT TECHNICIAN [address] [place] [address] PCP - General 10/08/19
--- OUTSIDE RECORDS SUMMARY | 2025-02-17 16:58 | XMS_ITS ---
Author Organization [facility] Address [address] [place] [address] Care Team Providers Care Billing Control Clerk Name Role Phone Arianne Alarcon NP Primary Care Provider [phone] Derrick Walker MD Unavailable [phone] Active Problems Problem Noted Date Diagnosed Date Alcohol withdrawal syndrome without complication 01/26/2025 Alcohol withdrawal syndrome with complication Alcohol withdrawal syndrome, uncomplicated 08/04 Hx of breast cancer 07/31/2020 Overview (07/31/2020): Added automatically from request for surgery [id number] History of breast cancer 02/10/2020 Overview (02/10/2020): Added automatically from request for surgery [id number] Anxiety 02/08/2020 Sensory neuropathy 02/08/2020 Nodule of [...]
--- OUTSIDE RECORDS SUMMARY | 2025-02-17 16:58 | XMS_ITS | Encounter Summary ---
Author Organization [facility] Address [address] [place] [address] Phone Care Team Providers Care Reed Man Name Role Phone Jack Dukes MD Unavailable [phone] Arianne Alarcon APRN, WIRE BENDER Primary Care Provider [phone] Lito Chatterjee MD Unavailable [phone] Gustabo Falk MD Unavailable [phone] Amrit Goddard MD Unavailable Phan Grant MD Unavailable [phone] Reason for Visit * Reason Comments Medication Refill Encounter Details Date Type Department Care Team (Late st Contact Info) Description 01/17/2022 Refill [facility] - Neurology [facility] [address] [place] [address] Jack Dukes MD [address] [place] [address] Medication Refill Social History Tobacco Use Types Packs/Day Years Used Date Smoking Tobacco: Never Smokeless Tobacco: Never Alcohol Use Standard Drinks/Week Comments No 0 (1 standard drink = 0.6 oz pur e alcohol) Comments No Sex and Gender Information Value Date Recorded Sex Assigned at Not on file Legal Sex Female 2:52 AM TECHNOLOGY LAB TEACHER Gender Identity Not on file Sexual Orientation Not on file 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 on file Not on [...] st Contact Info) Description 08/25/2025 2:00 PM TECHNOLOGY LAB TEACHER Office Visit [facility] Oncology Services [address] [place] [address] Phan Grant MD [address] [place] [address] Discharge Disposition: Discharged to home or Selfcare documented as of this encounter Visit Diagnoses Diagnosis 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) documented in this encounter Care Teams Reed Man Relationship Specialty Start Date End Date Arianen Alarcon APRN, CNP [address] [place] [address] PCP - General Family Medicine 08/29/16 Jack Dukes MD [address] [place] [address] Consulting Physician Neurology 08/21/16 Lito Chatterjee MD [address] [place] [address] Consulting Physician General Surgery 04/27/19 Gustabo Falk MD [address] [place], [place] [id number] Consulting Physician Radiation Oncology 04/27/19 Amrit Goddard MD [address] [address] Consulting Physician General Surgery 06/08/19 Phan Grant MD [address] [place] [address] Consulting Physician Medical Oncology 02/16/20 documented as of this encounter
--- OUTSIDE RECORDS SUMMARY | 2025-02-17 16:58 | XMS_ITS | Encounter Summary ---
Author Organization [facility] Address [address] [place] [address] Phone Care Team Providers Care Pharmacy Clinical Coordinator Name Role Phone Jack Dukes MD Unavailable Arianne Alarcon APRN, GEOSPATIAL PROGRAM MANAGEMENT OFFICER Primary Care Provider [phone] Lito Chatterjee MD Unavailable Gustabo Falk MD Unavailable Amrit Goddard MD Unavailable Phan Grant MD Unavailable Encounter Details Date Type Department Care Team (Latest Contact Info) Description 08/26/2024 Transcribe Orders 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 Not on file Not on file documented as of this encounter Plan of Treatment Upcoming Encounters Date Type Department Care Team (Late st Contact Info) Description 08/25/2025 2:00 PM MICROFILM TECHNICIAN Office Visit [facility] Oncology Services [address] [place] [address] Phan Grant MD [address] [place] [address] Discharge Disposition: Discharged to home or Selfcare [...] METABOLIC PANEL) (10/29/2024 12:00 AM CDT) Blood Arianne Alarcon FLAVOR EXTRACTOR, GEOSPATIAL PROGRAM MANAGEMENT OFFICER CHEMISTRY ORDERABLES Margarita l Result SCAN * COMPLETE BLOOD COUNT (CBC) WITH DIFF (10/29/2024 12:00 AM CDT) Blood Arianne Alarcon FLAVOR EXTRACTOR, GEOSPATIAL PROGRAM MANAGEMENT OFFICER HEMATOLOGY ORDERABLES Fin al Result Performing Organization Address City/[facility]/ZIP Co de Phone Number SCAN * LIPID PANEL (10/29/2024 12:00 AM CDT) CHOLESTEROL 182 SCAN HDL CHOLESTEROL 49 SCAN LDL 101 SCAN Blood Arianne Alarcon APRN, CNP CHEMISTRY ORDERABLES Margarita l Result SCAN documented in this encounter Visit Diagnoses Diagnosis Mixed hyperlipidemia- Primary Alcohol abuse, uncomplicated Gastroesophageal reflux disease without esophagitis Esophageal reflux documented in this encounter Care Teams Pharmacy Clinical Coordinator Relationship Specialty Start Date End Date Arianne Alarcon APRN, GEOSPATIAL PROGRAM MANAGEMENT OFFICER [address] [place] [address] PCP - General Family Medicine 08/29/16 Jack Dukes MD [address] [place] [address] Consulting Physician Neurology 08/21/16 Lito Chatterjee MD [address] [place] [address] Consulting Physician General Surgery 04/27/19 Gustabo Falk MD [address] [place] [address] Consulting Physician Radiation Oncology 04/27/19 Amrit Goddard MD [address] [address] Consulting Physician General Surgery 06/08/19 Phan Grant MD [address] [place] [address] Consulting Physician Medical Oncology 02/16/20 documented as of this encounter
--- OUTSIDE RECORDS SUMMARY | 2025-02-17 16:58 | XMS_ITS | Encounter Summary ---
Author Organization [facility] Address [address] [place] [address] Phone Care Team Providers Care Magnetic Tape Winder Name Role Phone Jack Dukes MD Unavailable [phone] Arianne Alarcon APRN, ASSISTANT PROFESSOR NURSE EDUCATION Primary Care Provider [phone] Lito Chatterjee MD Unavailable [phone] Gustabo Falk MD Unavailable [phone] Amrit Goddard MD Unavailable Phan Grant MD Unavailable [phone] Reason for Visit * Reason Comments Medication Refill Encounter Details Date Type Department Care Team (Late st Contact Info) Description 06/26/2022 Refill [facility] - [facility] [address] [place] [address] Jack Dukes MD [address] [place] [address] Medication Refill Social History Tobacco Use Types Packs/Day Years Used Date Smoking Tobacco: Never Smokeless Tobacco: Never Alcohol Use Standard Drinks/Week Comments No 0 (1 standard drink = 0.6 oz pur e alcohol) Comments No Sex and Gender Information Value Date Recorded Sex Assigned at Not on file Legal Sex Female 2:52 AM LABOR DELIVERY SPECIALIST Gender Identity Not on file Sexual Orientation Not on file 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 Not on file Not on file Not on file documented as of this encounter Plan of Treatment Upcoming Encounters Date Type Department Care Team (Late st Contact Info) Description 08/25/2025 2:00 PM LABOR DELIVERY SPECIALIST Office Visit [facility] Oncology Services [address] [place] [address] Phan Grant MD [address] [place] [address] Discharge Disposition: Discharged to home or Selfcare documented as of this encounter Visit Diagnoses Diagnosis 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) documented in this encounter Care Teams Magnetic Tape Winder Relationship Specialty Start Date End Date Arianne Alarcon APRN, CNP [address] [place] [address] PCP - General Family Medicine 08/29/16 Jack Dukes MD [address] [place] [address] Consulting Physician Neurology 08/21/16 Lito Chatterjee MD [address] [place] [address] Consulting Physician General Surgery 04/27/19 Gustabo Falk MD [address] [place] [address] Consulting Physician Radiation Oncology 04/27/19 Amrit Goddard MD [address] [facility] [address] [address] Consulting Physician General Surgery 06/08/19 Phan Grant MD [address] [place] [address] Consulting Physician Medical Oncology 02/16/20 documented as of this encounter
--- OUTSIDE RECORDS SUMMARY | 2025-02-17 16:58 | XMS_ITS | Encounter Summary ---
Author Organization [facility] Address [address] [place] [address] Phone Care Team Providers Care Electronic Device Repairer Name Role Phone Jack Dukes MD Unavailable [phone] Arianne Alarcon APRN, DELI/BAKERY ASSOCIATE Primary Care Provider [phone] Lito Chatterjee MD Unavailable [phone] Gustabo Falk MD Unavailable [phone] Amrit Goddard MD Unavailable Phan Grant MD Unavailable [phone] Reason for Visit * Reason Comments Medication Refill Encounter Details Date Type Department Care Team (Late st Contact Info) Description 11/05/2024 Refill [facility] - Neurology [facility] [address] [place] [address] Jack Dukes MD [address] [place] [address] Medication Refill Social History Tobacco Use Types Packs/Day Years Used Date Smoking Tobacco: Never Smokeless Tobacco: Never Alcohol Use Standard Drinks/Week Comments No 0 (1 standard drink = 0.6 oz pur e alcohol) Comments No Sex and Gender Information Value Date Recorded Sex Assigned at Not on file Legal Sex Female 2:52 AM DEVELOPMENTAL MATHEMATICS INSTRUCTOR Gender Identity Not on file Sexual Orientation Not on file 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 Not on file Not on file Not on file documented as of this encounter Plan of Treatment Upcoming Encounters Date Type Department Care Team (Late st Contact Info) Description 08/25/2025 2:00 PM DEVELOPMENTAL MATHEMATICS INSTRUCTOR Office Visit [facility] Oncology Services [address] [place] [address] Phan Grant MD [address] [place] [address] Discharge Disposition: Discharged to home or Selfcare documented as of this encounter Visit Diagnoses Diagnosis 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) documented in this encounter Care Teams Electronic Device Repairer Relationship Specialty Start Date End Date Arianne Alarcon APRN, CNP [address] [place] [address] PCP - General Family Medicine 08/29/16 Jack Dukes MD [address] [place] [address] Consulting Physician Neurology 08/21/16 Lito Chatterjee MD [address] [place] [address] Consulting Physician General Surgery 04/27/19 Gustabo Falk MD [address] [place] [address] Consulting Physician Radiation Oncology 04/27/19 Amrit Goddard MD [address] [address] Consulting Physician General Surgery 06/08/19 Phan Grant MD [address] [place] [address] Consulting Physician Medical Oncology 02/16/20 documented as of this encounter
--- OUTSIDE RECORDS SUMMARY | 2025-02-17 16:58 | XMS_ITS | Encounter Summary ---
Author Organization [facility] Address [address] [facility] [place] [address] Phone Care Team Providers Care Laboratory Engineer Name Role Phone Jack Dukes MD Unavailable [phone] Arianne Alarcon APRN, CNP Primary Care Provider [phone] Lito Chatterjee MD Unavailable Gustabo Falk MD Unavailable [phone] Amrit Goddard MD Unavailable Phan Grant MD Unavailable [phone] Reason for Visit * Reason Comments Medication Refill Encounter Details Date Type Department Care Team (Late st Contact Info) Description 05/22/2020 [facility]ill [facility] [address] [place] [address] Phan Grant MD [address] [place] [address] Medication Refill Social History Tobacco Use Types Packs/Day Years Used Date Smoking Tobacco: Never Smokeless Tobacco: Never Alcohol Use Standard Drinks/Week Comments No 0 (1 standard drink = 0.6 oz pur e alcohol) Comments No Sex and Gender Information Value Date Recorded Sex Assigned at Not on file Legal Sex Female 2:52 AM LEVEL VIAL INSPECTOR AND TESTER Gender Identity Not on file Sexual Orientation Not on file 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 No / Unsure 05/22/2020 3:41 PM LEVEL VIAL INSPECTOR AND TESTER documented as of this encounter Miscellaneous Notes * Telephone Encounter - Tanya Hylton APN, CNP - 05/26/2020 2:17 PM LEVEL VIAL INSPECTOR AND TESTER Refill Lorazepam 0.5 mg tabs, 1 tab BID as needed. # 60 tabs, 3 refills. L VIAL INSPECTOR AND TESTER documented in this encounter Plan of Treatment Upcoming Encounters Date Type Department Care Team (Late st Contact Info) Description 08/25/2025 2:00 PM LEVEL VIAL INSPECTOR AND TESTER [facility] [address] [place] [address] Phan Grant MD [address] [place] [address] Discharge Disposition: Discharged to home or Selfcare documented as of this encounter Visit Diagnoses Not on filedocumented in this encounter Care Teams Laboratory Engineer Relationship Specialty Start Date End Date Arianne Alarcon APRN, CNP [address] [place] [address] PCP - General Family Medicine 08/29/16 Jack Dukes MD [address] [place] [address] Consulting Physician Neurology 08/21/16 Lito Chatterjee MD [address] [place] [address] Consulting Physician General Surgery 04/27/19 Gustabo Falk MD [address] [address] Consulting Physician Radiation Oncology 04/27/19 Amrit Goddard MD [address] [address] Consulting Physician General Surgery 06/08/19 Phan Grant MD [address] [place] [address] Consulting Physician Medical Oncology 02/16/20 documented as of this encounter
--- OUTSIDE RECORDS SUMMARY | 2025-02-17 16:58 | XMS_ITS | Encounter Summary ---
Author Organization [facility] Address [address] [place] [address] Phone Care Team Providers Care Group Home Manager Name Role Phone Jack Dukes MD Unavailable [phone] Arianne Alarcon APRN, REGISTER REPAIRER Primary Care Provider [phone] Lito Chatterjee MD Unavailable [phone] Gustabo Falk MD Unavailable [phone] Amrit Goddard MD Unavailable Phan Grant MD Unavailable [phone] Reason for Visit * Reason Comments Medication Refill Encounter Details Date Type Department Care Team (Late st Contact Info) Description 05/29/2020 Refill [facility] - Neurology - [place] [address] [place] [address] Jack Dukes MD [address] [place] [address] Medication Refill Social History Tobacco Use Types Packs/Day Years Used Date Smoking Tobacco: Never Smokeless Tobacco: Never Alcohol Use Standard Drinks/Week Comments No 0 (1 standard drink = 0.6 oz pur e alcohol) Comments No Sex and Gender Information Value Date Recorded Sex Assigned at Not on file Legal Sex Female 2:52 AM MANAGER RECRUITING Gender Identity Not on file Sexual Orientation Not on file 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) documented in this encounter Care Teams Group Home Manager Relationship Specialty Start Date End Date Arianne Alarcon APRN, CNP [address] [place] [address] PCP - General Family Medicine 08/29/16 Jack Dukes MD [address] [place] [address] Consulting Physician Neurology 08/21/16 Lito Chatterjee MD [address] [place] [address] Consulting Physician General Surgery 04/27/19 Gustabo Falk MD [address] [place] [address] Consulting Physician Radiation Oncology 04/27/19 Amrit Goddard MD [address] [address] Consulting Physician General Surgery 06/08/19 Phan Grant MD [address] [place] [address] Consulting Physician Medical Oncology 02/16/20 documented as of this encounter
--- OUTSIDE RECORDS SUMMARY | 2025-02-17 16:58 | XMS_ITS ---
Author Organization [facility] Address [address] [place] [address] Care Team Providers Care Media Analytics Manager Name Role Phone Pavithra Castillo Primary Care Provider Saatchi Art, Adult ROLLY Unavailabl e [phone] Allergies Allergen (clinical drug ingredient) Drug/Non Drug Allergy documented on EMR Reaction Allergy Type Onset Date Status PENICILLIN Unknown Drug Allergy Active SULFA Unknown Drug Allergy Active REASON FOR VISIT new patient Medications Medication SIG (Take, Route, Frequency, Duration) Notes Start Date End Date Status ZyrTEC 10 MG 1 tablet Orally Once a day Active Wellbutrin SR 100 MG 1 tablet in the mor [place] Orally Once a day Active hydrOXYzine Pamoate 25 MG 1-2 capsules O rally every 4 hours as needed for anxiety, agitation, or inability to sleep. Do not give within 4 hours of diphenhydramine.; Duration: 30 days 02/08/2025 Active Doxepin HCl 10 MG 1- 2 capsules at bed time as needed for insomnia Orally Once a day; Duration: 30 days On [facility] 02/16/2025 Active Lexapro 20 MG 1 tablet Orally Once a day Active LaMICtal 100 MG 1 tablet Orally Twic e a day Active Gabapentin 300 MG 1 capsule Orally 3 t imes a day Active Melatonin 5 MG 1 tablet at bedtime as needed Orally Once a day; Duration: 30 days 02/08/2025 Active Multi Vitamin - 1 tablet Orally Once a day; Duration: 30 days 02/08/2025 Active Omeprazole 20 MG 1 capsule 1/2 to 1 h our before morning meal Orally Once a day Active Vivitrol 380 MG as directed Intramus cular every 28 days; Duration: 28 days 02/17/2025 Active Vimpat 200 MG 1 tablet Orally Once a day Active Social History Tobacco Use: Social History Observation Description Date Details (start date - stop date) Current Smoker NA - NA Sex Assigned At : Social History Observation Description Sex Assigned At Female Tobacco Control (Standard) Question Answer Notes Tobacco use: Current smoker Problems Problem Type SNOMED Code ICD Code Onset Dates Problem Status W/U Status Risk Notes Problem Nicotine dependence with current use (F17.200) Active confirmed Vital Signs Weight 168.2 lbs 02/17/2025 Height 65 in 02/17/2025 BMI 27.99 kg/m2 02/17/2025 Blood pressure systolic 112 mm Hg 02/18/20 25 Blood pressure diastolic 72 mm Hg 025 Heart Rate 93 /min 02/17/2025 Oximetry 99 % 02/17/2025 Temperature 98.0 degrees Fahrenheit 02/18/20 25 Respiratory Rate 18 /min 02/17/2025 Encounters Encounter Location Date Provider [address] [place] [address] 02/17/2025 Pavithra Castillo Over weight E66.3 ; Alcohol use disorder F10.99 and Nicotine dependence with current use F17.200 Assessments Encounter Date Diagnosis (ICD Code) Assessment Notes Treatment Notes Treatment Clinical Notes Section Notes 02/17/2025 Over weight (ICD-10 - E66.3) 02/17/2025 Alcohol use disorder (ICD-10 - F10.99) 02/17/2025 Nicotine dependence with current use (ICD-10 - F17.200) 02/17/2025 Other Discussed medication side effects, adverse effects, risks, benefits, as well as interactions. Encouraged non-use of alcohol. Has Vivitrol alert bracelet, necklace, and wallet card. Recommended participation in recovery groups and/or counseling services. May contact office with questions or concerns. Plan Of Treatment Medication Medication Name Sig Start Date Stop Date Notes Vivitrol 380 MG as directed Intramus cular every 28 days; Duration: 28 days 02/17/2025 Treatment Notes Assessment Notes Other Discussed medication side effects, adverse effects, risks, benefits, as well as interactions. Encouraged non-use of alcohol. Has Vivitrol alert bracelet, necklace, and wallet card. Recommended participation in recovery groups and/or counseling services. May contact office with questions or concerns. Next Appt Details Follow Up: 4 Weeks, Reason: MAR f/u Provider Name:Kai Anyaa , 03/02/2025 09:40:00 AM, [address] [facility], [place], [address], Medications Administered Medication Instructions Date of Administration Dosage Notes Vivitrol 02/17/2025 380 mg Progress Notes * NGUYỄNLuDOB: 7 (49 yo F)Acc No.[id number]:02/17/2025 Patient: Lu WALKER Provider: Akin Castillo, MSN, GEOGRAPHIC INFORMATION SYSTEMS DIRECTOR, DEAD MAIL CHECKER-C :1975 A ge:49 Y S ex:Female Date:02/17/2025 Address:[address] [place], [place] [id number] Check In:01:50 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 Patient declined. C ervical Cancer Screening: D iscussed need for cervical cancer screening. Patient declined. C olorectal Cancer Screening: D iscussed need for colorectal cancer screening. Patient declined. H IV Screening: D iscussed need for HIV screening. Patient declined. T obacco Screening and Cessation: N ot addressed during this visit. See notes for details. . D epression Screening: PHQ-9 L ittle interest or pleasure in doing things?Not at all F eeling down, depressed, or hopeless N ot at all T rouble falling or staying asleep, or sleeping too much N early every day F eeling tired or having little energy S everal days P oor appetite or overeating N ot at all F eeling bad about yourself or that you are a failure, or have let yourself or your family down S everal days T rouble concentrating on things, such as reading the newspaper or watching television S ever days M oving or speaking so slowly that other people could have noticed; or the opposite, being so fidgety or restless that you have been moving around a lot more than usual N ot at all T houghts that you would be better off or of hurting yourself in some way N ot at all T otal Score 6 I nterpretation M ild Depression Intervention D epression Screening Findings P ositive F ollow-Up for Depression P arpit is admitted to a [facility] unit where their mental health is monitored - unit nursing staff have access to this encounter note C SSRS Interpretation and Follow Up Plan: CSSRS Interpretation and Follow Up Plan C SSRS Screen documented using SF Y es R isk Disposition from SF L ow - No Follow Up Plan Required F ollow Up Plan N o Follow Up Plan required at this time. T imeframe of Screening T rosendo I nterim History: Emergency room visit N o. Was hospitalized N o. S creening: [place] Suicide Severity Rating Scale (LF) D o you want to initiate with S creener form 1 . Wish to be : Have you wished you were or wished you could go to sleep and not wake up? N o 2 . Suicidal Thoughts: Have you actually had any thoughts of killing yourself? N o 6 . Suicide Behavior Question: Have you ever done anything,started to do anything, or prepared to end your life? N o I nterpretation: L ow Risk M AR Initial Assessment: Lu presents for MAR services. She is currently [facility] to the [facility]. Drug of choice: alcohol and on occasion cocaine. Was drinking up to 10-12 shots of whiskey daily wt last drink on 02/02/2025. States last use of cocaine on 01/30/2025. Has received Vivitrol in the past for treatment and would like to restart. Substance use history S ubstance Use History, drugs of choice: A lcohol, Cocaine/Crack Cocaine Addiction Treatment History P rior Medications for LEONG treatment N altrexone/Revia T herapy/counseling and Recovery support (peers/groups) H istory of therapy/counseling or engagement with recovery support peer/groups P ast involvement in p eer recovery support services. C urrently involved in peer recovery support services? Y es History of Infectious Diseases H istory of viral hepatitis N o H istory of HIV N o H istory of TB N o H istory of other infectious diseases N o History of IV drug use and related infections H istory of injection drug use? N o Acute Trauma A cute Trauma N o Psychiatric History H istory of psychiatric diagnoses? Y es (specify) H as a psychiatric provider? N o. Patient is interested in a psychiatric evaluation with [facility] provider. medical staff services coordinator will coordinate appointment. Primary Care H as a primary care provider? Y es. See notes for provider. L ast primary care visit: W abhi last year D isclosure authorization obtained? Y es. medical staff services coordinator will obtain disclosure authorization. Assessment and history specific to females F emale/Female at ? Y es P regnancy testing: N egative. Rapid test completed in office and is negative. C ontraception: U ses contraception. Hepatitis A and B vaccination status V accination status Hep A D enies vaccination to Hep A. Vaccination encouraged and resources offered. V accination status, Hep B D enies vaccination for Hep B. Encourage vaccination and offered resources. Housing Stability and Employment I s housing stable/safe? Y es C urrently employed? U nemployed. Support System: H as a support system: Y es (specify): Narcan Access H as Narcan and has been trained on its use??Yes. Prescription Drug Monitoring Program P rescription Drug Monitoring Program reviewed? Y es. No concerns identified. * ROS: B asic ROS: Denies W eight loss or gain. D enies C hange in appetite. I nsomnia D enies. D enies A nxiety. D enies D epressed Mood. D enies S uicidal Thoughts. * Medical History: * Surgical History: a ppendectomy 1994cystectomy 2001 & 2003kidney stents 2005Double mastectomy 2021 * Hospitalization/Major Diagno stic Procedure: k idney stent placement 2006seizure 2014childbirth Feb 2017 * Family History: F ather: . M other: , hypertension. S iblings: alive, Graves disease, crohns disease. 2 brother(s) , 1 sister(s) - healthy. 1 son(s) , 1 daughter(s) - healthy. .? father at 50 years old from a motorcycle accident, no known health problems at . mother: HTN, obessity, passed from natural causes Brother: chrons disease Sister: graves disease son: depression. * Social History: P rimary Social History: L iving Arrangement L iving Arrangement: D ependent Living L iving with: O ther: [facility] I s this a supportive environment? Y es Alcohol Use A lcohol Use Frequency: N ever Illicit Substance Usage I llicit Substance Usage: N o Employment Status E mployment Status: E mployed Rn Sane Single Question Alcohol Screening H ow may times in the past year have you had (4 for women, or 5 for men) or more drinks in a day? 0 T obacco Use: T obacco Control (Standard) T obacco use: C urrent smoker M iscellaneous: M ethod of learning P referred method of learning: D iscussion * Medications: T akingVimpat 200 MG Tablet 1 tablet Orally Once a day Multi Vitamin - Tablet 1 tablet Orally Once a day Melatonin 5 MG Tablet 1 tablet at bedtime as needed Orally Once a day Omeprazole 20 MG Capsule Delayed Release 1 capsule 1/2 to 1 hour before morning meal Orally Once a day Gabapentin 300 MG Capsule 1 capsule Orally 3 times a day LaMICtal 100 MG Tablet 1 tablet Orally Twice a day ZyrTEC 10 MG Tablet Chewable 1 tablet Orally Once a day hydrOXYzine Pamoate 25 MG Capsule 1-2 capsules Orally every 4 hours as needed for anxiety, agitation, or inability to sleep. Do not give within 4 hours of diphenhydramine. Wellbutrin SR 100 MG Tablet Extended Release 12 Hour 1 tablet in the morning Orally Once a day Lexapro 20 MG Tablet 1 tablet Orally Once a day Doxepin HCl 10 MG Capsule 1- 2 capsules at bedtime as needed for insomnia Orally Once a day , Notes to Pharmacist: On WRUMedication List reviewed and reconciled with the patientTaking Vimpat 200 MG Tablet 1 tablet Orally Once a day Taking Multi Vitamin - Tablet 1 tablet Orally Once a day Taking Melatonin 5 MG Tablet 1 tablet at bedtime as needed Orally Once a day Taking Omeprazole 20 MG Capsule Delayed Release 1 capsule 1/2 to 1 hour before morning meal Orally Once a day Taking Gabapentin 300 MG Capsule 1 capsule Orally 3 times a day Taking LaMICtal 100 MG Tablet 1 tablet Orally Twice a day Taking ZyrTEC 10 MG Tablet Chewable 1 tablet Orally Once a day Taking hydrOXYzine Pamoate 25 MG Capsule 1-2 capsules Orally every 4 hours as needed for anxiety, agitation, or inability to sleep. Do not give within 4 hours of diphenhydramine. Taking Wellbutrin SR 100 MG Tablet Extended Release 12 Hour 1 tablet in the morning Orally Once a day Taking Lexapro 20 MG Tablet 1 tablet Orally Once a day Taking Doxepin HCl 10 MG Capsule 1- 2 capsules at bedtime as needed for insomnia Orally Once a day , Notes to Pharmacist: On WRUMedication List reviewed and reconciled with the patient * Allergies: P ENICILLINSULFAno[Allergies Verified] Objective: * Vitals: I nitials: HM, Wt:168.2, Ht: 65, BMI:27.99, BP:112/72, HR:93, Oxygen sat %:99, Temp:98.0, RR:18, Pain scale:0. * Examination: A [facility] Physical Assessment: Intoxication and Withdrawal signs I ntoxication signs N o signs of intoxication are present during examination. W ithdrawal Signs N o withdrawal signs are present during examination. . G eneral Examination: GENERAL APPEARANCE: p leasant, in no acute distress. PSYCH: s peech clear, alert, oriented x4, thought process logical, goal directed. Assessment: * Assessment: 1. O librado weight - E66.3 2 . A lcohol use disorder - F10.99 (Primary) ? 3 . N icotine dependence with current use - F17.200 Plan: * Treatment: 2. O thers Notes: Discussed medication side effects, adverse effects, risks, benefits, as well as interactions. Encouraged non-use of alcohol. Has VivBlackBridgel alert bracelet, necklace, and wallet card. Recommended participation in recovery groups and/or counseling services. May contact office with questions or concerns. * Recommended Wellness and Pre vention Guidelines: * S tatus A beto L ast Done N ext Due A ction Taken N ONCOMPLIANT A lcohol use screening - 0 02/17/2025 - - N ONCOMPLIANT B reast cancer screening - 0 02/17/2025 - - N ONCOMPLIANT C ervical cancer screening - 0 02/17/2025 - - N ONCOMPLIANT C holesterol screen (genl pop) 0 09/15/2015 0 02/17/2025 - - N ONCOMPLIANT C olorectal cancer screening - 0 02/17/2025 - - N ONCOMPLIANT D epression followup 0 02/16/2025 0 02/17/2025 - - * Therapeutic Injections: Vivitrol : 380 mg (Dose No:1) (Route: Intramuscular) given by Lesli Covarrubias RN , DKW on right gluteus * Procedure Codes: 3 008F BODY MASS INDEX [id number] THER/PROPH/DIAG INJ, SC/IM * Preventive Medicine: Counseling: S MOKING: Patient counselled on the dangers of tobacco use and urged to quit. . C are goal follow-up plan: BMI management provided Y es Above Normal BMI Follow-up L ifestyle education regarding diet * Follow Up: 4 Weeks (Reason: Sep/) * * Sign off status: Completed true * Provider: Akin Castillo, MSN, GEOGRAPHIC INFORMATION SYSTEMS DIRECTOR, DEAD MAIL CHECKER-C Date: 0 02/17/2025 Generated for Carroll moya/So/eTransmitting on: 0 02/17/2025 04:58 PM CDT History and Physical Notes * HPI (History of Present Illness) Category Sub-Category Detail Notes Category Not es Interim History Was hospitalized No Emergency room visit No Depression Screening PHQ-9 Little inte rest or pleasure in doing things: Not at all Feeling down, depressed, or hopeless: No t at all Trouble falling or staying asleep, or sl eeping too much: Nearly every day Feeling tired or having little energy: S everal days Poor appetite or overeating: Not at all Feeling bad about yourself o r that you are a failure, or have let yourself or your family down: Several days Trouble concentrating on thi ngs, such as reading the newspaper or watching television: Several days Moving or speaking so slowly that other people could have noticed; or the opposite, being so fidgety or restless that you have been moving around a lot more than usual: Not at all Thoughts that you would be b omar off or of hurting yourself in some way: Not at all Total Score: 6 Interpretation: Mild Depression Intervention Depression Screening Findings: P ositive Follow-Up for Depression: Raj hinkle is admitted to a [facility] residential unit where their mental health is monitored - unit nursing staff have access to this encounter note Screening [place] Suicide Sev erity Rating Scale (LF) Do you want to initiate with: Screener form 1. Wish to be : Have you wished you were or wished you could go to sleep and not wake up?: No 2. Suicidal Thoughts: Have you actually had any thoughts of killing yourself?: No 6. Suicide Behavior Question: Have you ever done anything,started to do anything, or prepared to end your life?: No Interpretation:: Low Risk MAR Initial Assessment History of Infect ious Diseases History of viral hepatitis: No History of HIV: No History of TB: No History of other infectious diseases: No Acute Trauma Acute Trauma: No History of IV drug use and r elated infections History of injection drug use?: No Psychiatric History History of psychiatr ic diagnoses?: Yes (specify) Has a psychiatric provider?: No. Patient is interested in a psychiatric evaluation with [facility] provider. medical staff services coordinator will coordinate appointment. Substance use history Substance Use Hist ory, drugs of choice:: Alcohol, Cocaine/Crack Cocaine Addiction Treatment History Prior Medica tions for LEONG treatment: Naltrexone/Revia Therapy/counseling and Recov osvaldo support (peers/groups): History of therapy/counseling or engagement with recovery support peer/groups Past involvement in: peer recovery support services. Currently involved in peer recovery support services?: Yes Primary Care Has a primary care provider?: Ye s. See notes for provider. Last primary care visit:: Within last year Disclosure authorization obtained?: Yes. medical staff services coordinator will obtain disclosure authorization. Assessment and history specific to females Femal e/Female at ?: Yes testing:: Negative. Rapid test completed in office and is negative. Contraception:: Uses contraception. Hepatitis A and B vaccination status Vac cination status Hep A: Denies vaccination to Hep A. Vaccination encouraged and resources offered. Vaccination status, Hep B: D enies vaccination for Hep B. Encourage vaccination and offered resources. Housing Stability and Employment Is housing stab le/safe?: Yes Currently employed?: Unemployed. Support System: Has a support system:: Yes (spec maria d): Narcan Access Has Narcan and has b een trained on its use?: Yes. Prescription Drug Monitoring Program Pre scription Drug Monitoring Program reviewed?: Yes. No concerns identified. Preventative Health and Wellness follow-up Action Plans for Clinical Quality Measures: Breast Cancer Screening:: Discussed need for breast cancer screening. Patient declined. . Cervical Cancer Screening:: Discussed need for cervical cancer screening. Patient declined. Colorectal Cancer Screening: : Discussed need for colorectal cancer screening. Patient declined. HIV Screening:: Discussed need for HIV s creening. Patient declined. Tobacco Screening and Cessat ion:: Not addressed during this visit. See notes for details. CSSRS Interpretation and Follow Up Plan CSSRS Interpretation and Follow Up Plan CSSRS Screen documented using SF: Yes Risk Disposition from SF: Low - No Follo w Up Plan Required Follow Up Plan: No Follow Up Plan requir ed at this time. Timeframe of Screening: Today Examination Category Sub-Category Detail Notes Category Not es General Examination GENERAL APPEARANCE: pleasant, in n o acute distress PSYCH: speech clear, alert, oriented x4, thought process logical, goal directed ASAM Physical Assessment Intoxication an d Withdrawal signs Intoxication signs: No signs of intoxication are present during examination. . Withdrawal Signs: No withdrawal signs ar e present during examination.
--- OUTSIDE RECORDS SUMMARY | 2025-02-17 16:58 | XMS_ITS | Encounter Summary ---
Author Organization [facility] Address [address] [place] [address] Phone Care Team Providers Care Financial Services Agent Name Role Phone Jack Dukes MD Unavailable [phone] Arianne Alarcon APRN, VULNERABILITY RESEARCHER Primary Care Provider [phone] Lito Chatterjee MD Unavailable [phone] Gustabo Falk MD Unavailable [phone] Amrit Goddard MD Unavailable Phan Grant MD Unavailable [phone] Reason for Visit * Reason Comments Medication Refill Encounter Details Date Type Department Care Team (Late st Contact Info) Description 09/05/2022 Refill [facility] - Neurology [facility] [address] [place] [address] Jack Dukes MD [address] [place] [address] Medication Refill Social History Tobacco Use Types Packs/Day Years Used Date Smoking Tobacco: Never Smokeless Tobacco: Never Alcohol Use Standard Drinks/Week Comments No 0 (1 standard drink = 0.6 oz pur e alcohol) Comments No Sex and Gender Information Value Date Recorded Sex Assigned at Not on file Legal Sex Female 2:52 AM BONE GLUE MAKER Gender Identity Not on file Sexual Orientation Not on file 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 No / Unsure 08/21/2022 2:16 PM BONE GLUE MAKER documented as of this encounter Miscellaneous [...] Jack Dukes MD [facility] Showing recent visits within past 365 days and meeting all other requirements Future Appointments No visits were found meeting these conditions. Showing future appointments within next 90 days and meeting all other requirements GLUE MAKER documented in this encounter Plan of Treatment Upcoming Encounters Date Type Department Care Team (Late st Contact Info) Description 08/25/2025 2:00 PM BONE GLUE MAKER [facility] [address] [place] [address] Phan Grant MD [address] [place], [place] [id number] Discharge Disposition: Discharged to home or Selfcare documented as of this encounter Visit Diagnoses Diagnosis Seizures (HCC) Other convulsions documented in this encounter Care Teams Financial Services Agent Relationship Specialty Start Date End Date Arianne Alarcon APRN, VULNERABILITY RESEARCHER [address] [place] [id number] PCP - General Family Medicine 08/29/16 Jack Dukes MD [address] [place] [id number] Consulting Physician Neurology 08/21/16 Lito Chatterjee MD [address] [place] [address] Consulting Physician General Surgery 04/27/19 Gustabo Falk MD [address] [place] [id number] Consulting Physician Radiation Oncology 04/27/19 Amrit Goddard MD [address] [address] Consulting Physician General Surgery 06/08/19 Phan Grant MD [address] [place] [address] Consulting Physician Medical Oncology 02/16/20 documented as of this encounter
--- OUTSIDE RECORDS SUMMARY | 2025-02-17 16:58 | XMS_ITS | Encounter Summary ---
Author Organization [facility] Address [address] [place] [address] Phone Care Team Providers Care Oil Pit Attendant Name Role Phone Jack Dukes MD Unavailable [phone] Arianne Alarcon APRN, PRE PLANNING ADVISOR Primary Care Provider [phone] Lito Chatterjee MD Unavailable [phone] Gustabo Falk MD Unavailable [phone] Amrit Goddard MD Unavailable Phan Grant MD Unavailable [phone] Reason for Visit * Reason Comments Medication Refill Encounter Details Date Type Department Care Team (Late st Contact Info) Description 01/01/2023 Refill [facility] - Neurology [facility] ([facility] [address] [place] [address] Jack Dukes MD [address] [place] [address] Medication Refill Social History Tobacco Use Types Packs/Day Years Used Date Smoking Tobacco: Never Smokeless Tobacco: Never Alcohol Use Standard Drinks/Week Comments No 0 (1 standard drink = 0.6 oz pur e alcohol) Comments No Sex and Gender Information Value Date Recorded Sex Assigned at Not on file Legal Sex Female 2:52 AM LINE SERVICE ATTENDANT Gender Identity Not on file Sexual Orientation Not on file 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 Showing future appointments within next 90 days and meeting all other requirements documented in this encounter Plan of Treatment Upcoming Encounters Date Type Department Care Team (Late st Contact Info) Description 08/25/2025 2:00 PM LINE SERVICE ATTENDANT [facility] [address] [place] [phone] Phan Grant MD [address] [place] [address] Discharge Disposition: Discharged to home or Selfcare documented as of this encounter Visit Diagnoses Diagnosis Seizures (HCC) Other convulsions documented in this encounter Care Teams Oil Pit Attendant Relationship Specialty Start Date End Date Arianne Alarcon APRN, ROMEL [address] [place] [address] PCP - General Family Medicine 08/29/16 Jack Dukes MD [address] [place] [address] Consulting Physician Neurology 08/21/16 Lito Chatterjee MD [address] [place] [address] Consulting Physician General Surgery 04/27/19 Gustabo Falk MD [address] [place] [address] Consulting Physician Radiation Oncology 04/27/19 Amrit Goddard MD [address] [facility] [address] [address] Consulting Physician General Surgery 06/08/19 Phan Grant MD [address] [place] [address] Consulting Physician Medical Oncology 02/16/20 documented as of this encounter
--- OUTSIDE RECORDS SUMMARY | 2025-02-17 16:58 | XMS_ITS | Encounter Summary ---
Author Organization [facility] Address [address] [place] [address] Phone Care Team Providers Care Concrete Craftsman Name Role Phone Jack Dukes MD Unavailable [phone] Arianne Alarcon APRN, COMMERCIAL LOAN REVIEWER Primary Care Provider [phone] Lito Chatterjee MD Unavailable [phone] Gustabo Falk MD Unavailable [phone] Amrit Goddard MD Unavailable Phan Grant MD Unavailable [phone] Reason for Visit * Reason Comments Medication Refill Encounter Details Date Type Department Care Team (Late st Contact Info) Description 10/29/[address] 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 Not on file Not on file Not on file documented as of this encounter Plan of Treatment Upcoming Encounters Date Type Department Care Team (Late st Contact Info) Description 08/25/2025 2:00 PM DYE TUB TENDER Office Visit [facility] Oncology Services [address] [place] [phone] Phan Grant MD [address] [place] [address] Discharge Disposition: Discharged to home or Selfcare documented as of this encounter Visit Diagnoses Diagnosis 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) documented in this encounter Care Teams Concrete Craftsman Relationship Specialty Start Date End Date Arianne Alarcon APRN, CNP [address] [place] [address] PCP - General Family Medicine 08/29/16 Jack Dukes MD [address] [place] [address] Consulting Physician Neurology 08/21/16 Lito Chatterjee MD [address] [place] [address] Consulting Physician General Surgery 04/27/19 Gustabo Falk MD [address] [place] [address] Consulting Physician Radiation Oncology 04/27/19 Amrit Goddard MD [address] [facility] [address] [address] Consulting Physician General Surgery 06/08/19 Phan Grant MD [address] [place] [address] Consulting Physician Medical Oncology 02/16/20 documented as of this encounter
--- OUTSIDE RECORDS SUMMARY | 2025-02-17 16:58 | XMS_ITS ---
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 History and Physical Notes * HPI (History of Present Illness) Category Sub-Category Detail Notes Category Not es Depression Screening PHQ-9 Little inte rest or pleasure in doing things: Several days Feeling down, depressed, or hopeless: Se veral days Trouble falling or staying asleep, or sl eeping too much: Nearly every day Feeling tired or having little energy: N early every day Poor appetite or overeating: Several day s Feeling bad about yourself o r that you are a failure, or have let yourself or your family down: More than half the days Trouble concentrating on thi ngs, such as reading the newspaper or watching television: More than half the days Moving or speaking so slowly that other people could have noticed; or the opposite, being so fidgety or restless that you have been moving around a lot more than usual: Several days Thoughts that you would be b omar off or of hurting yourself in some way: Not at all Total Score: 14 Interpretation: Moderate Depression Intervention Depression Screening Findings: P ositive Follow-Up for Depression: Raj hinkle is admitted to a [place] residential unit where their mental health is monitored SPENCER-7 Screening 1. Feeling nervous, anxious, or on edg e : 2. Not being able to stop or control wor rying :, Several days-1 3. Worrying too much about different thi ngs : 4. Trouble sleeping/relaxing : 5. Being so restless that it is hard to sit still : 6. Becoming easily annoyed or irritable : 7. Feeling afraid, as if something awful might happen : SPENCER-7 Score Total score:: 11 Mood Disorder Questionnaire 12-26-21 Questions Please answer each question to the best of your ability.: Has there ever been a time period when you were not your usual self and... You felt so good or hyper th at other people thought you were not your normal self or you were so hyper that you got into trouble?: No . You were so irritable that y ou shouted at people or started fights or arguments?: No . You got much less sleep than usual and found that you didn't really miss it?: Yes . You felt much more self-confident than u sual?: Yes . You were more talkative or spoke much fa ster than usual?: No . Thoughts raced through your head or you couldn't slow your mind down?: No . You were so easily distracte d by things around you that you had trouble concentrating or staying on track?: No . You had more energy than usual?: No . You were more active or did many more th ings than usual?: No . You were more social or outg oing than usual, for example, you telephoned friends in the middle of the night?: No . You were more interested in sex than usu al?: No . You did things that were usu al for you or that other people might have thought were excessive, foolish, or risky?: No . Spending money got you or your family in trouble?: No . If you checked YES to more t amaya one of the above, have several of these ever happened during the same period of time?: Yes . How much of a problem did an y of these cause you - like being unable to work; having family, money or legal troubles; getting into arguments or fights?: No problems . Examination Category Sub-Category Detail Notes Category Not es Mental Status Exam SENSORIUM AND COGNITION A&Ox4 ATTENTION AND CONCENTRATION No deficits APPEARANCE Phone interview - un able to determine appearance. ATTITUDE AND BEHAVIOR Cooperative, Pleas ant MEMORY Immediate, Recent, R emote, Grossly intact EYE CONTACT Phone interview AFFECT Calm Congruent with reported mood, Composed MOOD Euthymic SPEECH QUANTITY Appropriate SPEECH QUALITY Spontaneous, Fluent, Appropriate volume THOUGHT PROCESS Coherent and goal di rected THOUGHT CONTENT Appropriate - WNL, C ongruent with affect, No evidence of delusional content, No reports paranoia MOTOR ACTIVITY Phone interview SUICIDAL IDEATION Denies suicidal idea tion, Contracts for safety, Denies self-harm activities HOMICIDAL IDEATION Denies homicidal vern ation, Contracts for safety of others HALLUCINATIONS Denies hallucination s, Does not appear to be responding to internal stimuli INSIGHT Fair JUDGMENT Fair FUND OF KNOWLEDGE Fair ABILITY TO PARTICIPATE IN TREATMENT Mode rate WILLINGNESS TO PARTICIPATE IN TREATMENT Moderate LANGUAGE Appropriate- WNL
--- OUTSIDE RECORDS SUMMARY | 2025-02-17 16:58 | XMS_ITS | Clinical Summary ---
Author Organization [facility] Address [address] [place] [id number] Care Team Providers Care [employer] Professor Name Role Phone Unavailable Primary Care Provider [...] Comments Blood Pressure 102/70 06/15/2015 9:24 AM [employer] Pulse 78 06/15/2015 9:24 AM [employer] Temperature - - Respiratory Rate - - Oxygen Saturation - - Inhaled Oxygen Concentration - - Weight 68 kg (150 lb) 06/15/2015 9:24 AM [employer] Height 167.6 cm (5' 6) 06/15/2015 9:24 AM [employer] Body Mass Index 24.21 06/15/2015 9:24 AM [employer] Plan of Treatment Health Maintenance Due Date [...]
--- OUTSIDE RECORDS SUMMARY | 2025-02-17 16:58 | XMS_ITS | Clinical Summary ---
Author Organization [facility] Address [address] [place] [address] Care Team Providers Care Employment Agency Manager Name Role Phone Arianne Alarcon NP Primary Care Provider [phone] Derrick Walker MD Unavailable [phone] Allergies Active Allergy Reactions Criticality Noted [...] (07/31/2020): Added automatically from request for surgery [id number] History of breast cancer 02/10/2020 Overview (02/10/2020): Added automatically from request for surgery [id number] Anxiety 02/08/2020 Sensory neuropathy 02/08/2020 Nodule of [...] Care Team Description 01/31/2025 Documentation [facility] Case Management [address] [place] [address] Shanice Serna 01/25/2025 10:58 PM CDT - 01/28/2025 12:56 PM CDT Hospital Encounter [facility] [address] [place] [address] Sol Yates MD Lun, Yu, MD Smith, Thomas Hamilton, MD Alcohol withdrawal syndrome without complication (HCC) (Primary Dx) Discharge Disposition: Discharge to an IP Rehab facility 01/23/2025 Documentation [facility] [address] [place], [place] [phone] Sheryl Montanez 01/22/2025 AMH Enrollment [facility] [address] [place], [place] [phone] Sheryl Montanez 01/21/2025 Documentation [facility] [address] [place], [place] [phone] Ana Nair 01/20/2025 9:33 PM CDT - 01/23/2025 5:11 PM CDT Hospital Encounter [facility] [address] [place] [address] Gabo Santos MD Sargsyan, Narine, MD Alcohol withdrawal syndrome with complication (HCC) (Primary Dx) Discharge Disposition: Left Against Medical Advice 01/20/2025 Documentation [facility] [address] [place], [place] [phone] Ana Nair from Last 3 Months Immunizations [...] PORTACATH PLACEMENT Left MASTECTOMY 12/24/2019 Bilateral TISSUE ROOMS DIRECTOR PLACEMENT 12/24/2019 Bilateral Removal Left Port a [...] drink = 0.6 oz pur e alcohol) [facility] Utilities Answer Date Recorded In the past 12 months has [employer], gas, oil, or water [employer] threatened to shut off services in your home? No 01/26/2025 Social Connection and Isolation Panel Answer Date Recorded In a typical week, how many times do you talk on the phone with family, friends, or neighbors? Three times a week 01/26/2025 How often do you get togethe r with friends or relatives? Twice a week 01/26/2025 How often do you attend chur or alevism services? More than 4 times per year 01/26/2025 Do you belong to any clubs o r organizations such as anabaptism groups, unions, fraternal or athletic groups, or [...] any time in the past 12 m [facility], were you homeless or living in a nursing home (including now)? No 01/26/2025 Personal Safety Answer Date Recorded Have you ever been in or are you currently in a harmful physical or emotional relationship or is someone making you feel afraid or unsafe? Denies 01/26/2025 Comments No Sex and Gender Information Value Date Recorded Sex Assigned at Not on file Legal Sex Female 12:33 AM MICROARRAY SPECIALIST Gender Identity Female 06/06/2021 8:34 AM MICROARRAY SPECIALIST Sexual Orientation Straight 06/06/2021 8: 34 AM MICROARRAY SPECIALIST Obstetrics History Last Filed Vital Signs Vital [...] CDT Height 165.1 cm (5' 5) 01/26/2025 2:3 3 AM CDT Body Mass Index 27.77 01/26/2025 [...] this topic Medical Devices Implanted Type Area Metal Mine Inspector Device Identifier Shelf Expiration Date Model / Serial / Lot [employer] 68-120 Natrelle 9cm Style 68mp Smooth Anterior Diaphragm Valve P3cm Latex Free - [id number] - [id number] Implanted:Qty: 1 on 03/16/2021 by Derrick Walker MD at [facility] Breast Left: Breast [employer] 04/09/2024 68-120 / [id number] / [employer] [id number] Alloderm Select [id number] Allograft Regenerative Freeze Dried - [id number] - [id number] Implanted:Qty: 1 on 12/24/2019 by Derrick Walker MD at [facility] Left: Breast [employer] 11/03/2020 [id number] / [id number] / [employer] [id number] Alloderm Select [id number] Allograft Regenerative Freeze Dried - [id number] - [id number] Implanted:Qty: 1 on 12/24/2019 by Derrick Walker MD at [facility] Right: Breast [employer] 10/04/2020 [id number] / [id number] / Synovis SpineGuard Allian [id number] [place] Microvascular 2.5mm Ring Pin Protective Cover Jaw Assembly Latex Free - [id number] Implanted:Qty: 1 on 04/06/2020 by Derrick Walker MD at [facility] Right: Breast [employer] SpineGuard Allian 10/13/2024 [id number] / / [employer] [id number] [place] Microvascular 2.5mm Ring Pin Protective Cover Jaw Assembly Latex Free - [id number] Implanted:Qty: 1 on 04/06/2020 by Derrick Walker MD at [facility] Left: Breast [employer]is Micro Intervention Insights Allian 10/23/2024 [id number] / / [id number] [employer] 68-120 Natrelle 9cm Style 68mp Smooth Anterior Diaphragm Valve P3cm Latex Free - [id number] - [id number] Implanted:Qty: 1 on 03/16/2021 by Derrick Walker MD at [facility] Left: Breast [employer] 08/30/2023 68-120 / [id number] / Explanted Type Area Metal Mine Inspector Device Identifier Shelf Expiration Date Model / Serial / Lot Sientra Inc Allox2-[id number] Allox2 15x13.8cm Texture Integrate Port Breast P6.4-7.9cm Full - [id number] Implanted:Qty: 1 on 12/24/2019 by Derrick Walker MD at [facility] Explanted:Qty: 1 on 04/06/2020 by Derrick Walker MD at [facility] Breast Left: Breast [employer] 11/03/2024 [id number] / / Sient[employer] Allox2-[id number] Allox2 15x13.8cm Texture Integrate Port Breast P6.4-7.9cm Full - [id number] Implanted:Qty: 1 on 12/24/2019 by Derrick Walker MD at [facility] Explanted:Qty: 1 on 04/06/2020 by Derrick Walker MD at [facility] Right: Breast Sientra Inc [...] W MARY ANNE Routine 05/11/2015 11:49 AM MICROARRAY SPECIALIST from Last 3 Months or Most Recently Relevant to Health Maintenance Results * eGFR (01/26/2025 5:32 AM CDT) Pathologist [facility] eGFR 73 >=60 mL/min/1. 73 m2 [...] Yates MD LAB BLOOD ORDERABLES [facility] Result [facility] [address] [facility] [place] [address] * (ABNORMAL) Differential, auto (01/26/2025 5:32 AM CDT) [facility] Neutrophil abs 2.32 1.50 - 6.50 K/cumm Imm gran abs 0.01 0.00 - 0.10 K/cumm [facility] Lymphocyte abs 3.41(H) 0.80 - 3.30 K/cumm [facility] Monocyte abs 0.52 0.20 - 0.80 K/cumm [facility] Eosinophil abs 0.00 0.00 - 0.50 K/cumm [facility] Basophil abs 0.03 0.00 - 0.10 K/cumm [facility] Neutrophil pct 36.8 % [facility] Comment: Interpretive Data Percent cell count reference ranges are not reported, since discordance with absolute values may lead to misinterpretation of CBC data. Current Interpretive Data was last revised on 2017. Imm gran pct 0.2 % [facility] Comment: Interpretive Data Percent cell count reference ranges are not reported, since discordance with absolute values may lead to misinterpretation of CBC data. Current Interpretive Data was last revised on 2017. Lymphocyte pct 54.2 % [facility] Comment: Interpretive Data Percent cell count reference ranges are not reported, since discordance with absolute values may lead to misinterpretation of CBC data. Current Interpretive Data was last revised on 2017. Monocyte pct 8.3 % [facility] Comment: Interpretive Data Percent cell count reference ranges are not reported, since discordance with absolute values may lead to misinterpretation of CBC data. Current Interpretive Data was last revised on 2017. Eosinophil pct 0.0 % [facility] Comment: Interpretive Data Percent cell count reference ranges are not reported, since discordance with absolute values may lead to misinterpretation of CBC data. Current Interpretive Data was last revised on 2017. Basophil pct 0.5 % [facility] Comment: Interpretive Data Percent cell count reference ranges are not reported, since discordance with absolute values may lead to misinterpretation of CBC data. Current Interpretive Data was last revised on 2017. Blood 01/26/2025 5:32 AM CDT 01/26/2025 5:46 AM CDT us Sol Yates MD LAB BLOOD ORDERABLES Fi nal Result [facility] [address] [facility] Department [place] [address] * CBC with auto differential (01/26/2025 5:32 AM CDT) WBC 6.29 3.80 - 9.90 K/cumm Hgb 12.9 11.9 - 15.5 g/dL [facility] Hct 38.1 35.6 - 45.5 % [facility] Plt 265 150 - 400 K/cumm [facility] MPV 9.1 9.1 - 12.3 fL [facility] RBC 4.24 3.90 - 5.20 M/cumm [facility] MCV 89.9 81.3 - 96.4 fL [facility] MCH 30.4 27.1 - 33.3 pg [facility] MCHC 33.9 32.3 - 35.7 g/dL [facility] RDW CV 13.5 11.1 - 14.9 % [facility] RDW SD 43.9 35.7 - 48.1 fL [facility] NRBC abs 0.00 0.00 - 0.01 K/cumm [facility] Blood 01/26/2025 5:32 AM CDT 01/26/2025 5:46 AM CDT Sol Yates MD LAB BLOOD ORDERABLES Fi nal Result Performing Organization Address City/[facility]/ZIP Co de Phone Number [address] [place] [address] * Magnesium (01/26/2025 5:32 AM CDT) [facility] Magnesium 2.2 1.4 - 2.5 mg/dL Blood 01/26/2025 5:32 AM CDT 01/26/2025 5:46 AM CDT Sol Yates MD LAB BLOOD ORDERABLES Fi nal Result Performing Organization Address City/[facility]/ZIP Co de Phone Number [address] [place] [address] * Comprehensive metabolic panel (01/26/2025 5:32 AM CDT) Pathologist [facility] Sodium 140 135 - 145 mmol/L Potassium, pl 3.3 3.3 - 4.9 mmol/L [facility] Chloride 105 97 - 110 mmol/L [facility] CO2 25 22 - 32 mmol/L [facility] Anion gap 10 2 - 15 mmol/L [facility] BUN 9 6 - 25 mg/dL [facility] Creatinine 0.96 0.60 - 1.10 mg/dL [facility] Glucose 123 70 - 199 mg/dL [facility] Comment: Interpretive Data Fasting glucose >/= 126 [...] 2022. Calcium 8.6 8.5 - 10.3 mg/dL [facility] Bilirubin, total 0.3 0.1 - 1.2 mg/dL [facility] Protein, pl 6.5 6.5 - 8.5 g/dL [facility] Albumin 3.7 3.5 - 5.0 g/dL [facility] Alk phos 108 40 - 130 Units/L [facility] ALT 24 7 - 45 Units/L [facility] AST 24 10 - 45 Units/L [facility] Blood 01/26/2025 5:32 AM CDT 01/26/2025 5:46 AM CDT Sol Yates MD LAB BLOOD ORDERABLES Fi nal Result Performing Organization Address City/State/[facility] Co de Phone Number [facility] Department [place] [address] * POCT hCG, urine (01/26/2025 1:00 AM CDT) Pathologist [facility] HCG, ur, POC Negative Negative Lot Number [id number] Backgroud Clear Acceptable QC Control Line Acceptable Urine 01/26/2025 1:00 AM CDT Sol Yates MD POINT OF CARE TEST ORDMei CHASE Final Result * (ABNORMAL) Urinalysis reflex to microscopic and culture Urine (01/25/2025 10:03 PM CDT) Color, ur Straw Yellow Clarity, ur Clear Clear [facility] Specific gravity, ur 1.007 1.003 - 1.030 CERNER MH pH, urine 5.5 [facility] Comment: Interpretive Data U rine pH is affected by diet, medications, systemic acid-base disturbances, and renal tubular function. pH may affect urinary stone formation. For example, urine pH below 6.0 may help reduce the tendency for calcium phosphate stones and pH greater than 6.0 may reduce the tendency for uric acid stone formation. Source: [facility] Current Interpretive Data was last revised on 2017 Protein, ur ql Negative Negative [facility] Glucose, ur ql Negative Negative [facility] Ketones, ur Negative Negative [facility] Bilirubin, ur Negative Negative [facility] Blood, ur Negative Negative [facility] Urobilinogen, ur <2.0 <2.0 mg/dL [facility] Nitrite, ur Negative Negative [facility] Leukocyte esterase, ur 3+(A) Negative [facility] UA reflex comment Reflex to microscopic UA will be performed. [facility] Urine 01/25/2025 10:0 3 PM CDT 01/25/2025 10:06 PM CDT us Sol Yates MD LAB MICROBIOLOGY - [facility] ORDERABLES Final Result [facility] [address] [facility] Department [place] [address] * (ABNORMAL) Drugs of Abuse Screen, Urine without Confirmation (01/25/2025 10:03 PM CDT) Pathologist [facility] Amphetamine, ur Not Detected CutOff 500ng/mL Comment: Interpretive Data - Amphetamines: Samples containing greater than 500 ng/mL d-methamphetamine or other cross-reacting amphetamine compounds are reported as positive. Amphetamine immunoassays are subject to significant false positive rates due to cross-reactivity of non-amphetamine drugs. Confirmatory testing required for definitive results. Current Interpretive Data was last reviewed 2023. Barbiturates, ur Not Detected CutOff 200ng/mL [facility] Comment: Interpretive Data - Barbiturates: Samples containing greater than 200 ng/mL secobarbital or other cross-reacting barbiturate compounds are reported as positive. False positive and false negative results are possible. Confirmatory testing required for definitive results. Current Interpretive Data was last reviewed 2023. Benzodiazepines, ur Screen Positive, presumptive (A) CutOff 100ng/mL [facility] Comment: Interpretive Data - Benzodiazepines: Samples containing greater than 100 ng/mL nordiazepam or other cross-reacting compounds are reported as positive. False positive and false negative results are possible. Confirmatory testing required for definitive results. Current Interpretive Data was last reviewed 2023. Cannabinoids, ur Not Detected CutOff 50 ng/mL [facility] Comment: Interpretive Data - Cannabinoids: Samples containing greater than 50 ng/mL delta-9 THC -COOH or other cross- reacting compounds are reported as positive. False positive and false negative results are possible. Confirmatory testing required for definitive results. Current Interpretive Data was last reviewed 2023. Cocaine, ur Screen Positive, presumptive (A) CutOff 150ng/mL [facility] Comment: Interpretive Data - Cocaine: Samples containing greater than 150 ng/mL benzoylecgonine or other cross- reacting compounds are reported as positive. False positive and false negative results are possible. Confirmatory testing required for definitive results. Current Interpretive Data was last reviewed 2023. Fentanyl, Ur Not Detected CutOff 5 ng/mL [facility] Comment: Interpretive Data - Fentanyl: Samples containing greater than 5 ng/mL norfentanyl, fentanyl, or other cross-reacting fentanyl compounds are reported as positive. False positive and false negative results are possible. Confirmatory testing required for definitive results. Current Interpretive Data was last reviewed 2023. Methadone, ur Not Detected CutOff 300ng/mL [facility] Comment: Interpretive Data - Methadone: Samples containing greater than 300 ng/mL d,l-methadone or other cross-reacting compounds are reported as positive. False positive and false negative results are possible. Confirmatory testing required for definitive results. Current Interpretive Data was last reviewed 2023. Opiates, ur Not Detected CutOff 300ng/mL [facility] Comment: Interpretive Data - Opiates: Samples containing greater than 300 ng/mL morphine or other cross-reacting compounds are reported as positive. False positive and false negative results are possible. Confirmatory testing required for definitive results. Current Interpretive Data was last reviewed 2023. Oxycodone, ur Not Detected CutOff 100ng/mL [facility] Comment: Interpretive Data - Oxycodone: Samples containing [...] PM CDT 01/25/2025 10:06 PM CDT Narrative [facility] - 01/25/2025 10:53 PM CDT Drug of Abuse screening is performed by immunoassay for medical purposes only. This is not to be used for Pain Management purposes. Sol Yates MD LAB URINE ORDERABLES nal Result [facility] Department [place] [address] * (ABNORMAL) Urinalysis, microscopic only (01/25/2025 10:03 PM CDT) WBC, ur 0-5 0 - 5 /HPF RBC, ur 0-2 0 - 2 /[facility] Epithelial cells, squamous, ur 1-5 0 - 5 /HPF [facility] Bacteria, ur Trace(A) [facility] Mucous, ur Present(A) [facility] Culture Reflex Comment Reflex conditions for urine culture (WBC >10) not met. [facility] Urine 01/25/2025 10:0 3 PM CDT 01/25/2025 10:06 PM CDT Sol Yates MD LAB URINE ORDERABLES Fi nal Result [facility] [address] Department [place] [address] * ECG 12 lead (01/25/2025 8:07 PM CDT) Ventricular Rate EKG/Min 108 BPM [facility] Atrial Rate 108 BPM [facility] MT-Interval (MSEC) 168 ms [facility] QRS-Interval (MSEC) 68 ms [facility] QT-Interval (MSEC) 342 ms [facility] QTc 458 ms [facility] P [place] 32 degrees [facility] R [place] 5 degrees [facility] T [place] 32 degrees [facility] Diagnosis Sinus tachycardia Possible Inferior infarct , age undetermined Abnormal ECG No previous ECGs available Confirmed by INOCENCIA DUQUE M.D. ([id number]) on 01/26/2025 10:43:48 PM [facility] 01/25/2025 8:07 PM CDT 01/26/2025 10:43 PM CDT Sol Yates MD ECG ORDERABLES Final R esult Performing Organization Address City/[facility] Co de Phone Number [facility] * eGFR (01/25/2025 7:59 PM CDT) [...] MD LAB BLOOD ORDERABLES Fi nal Result [facility] [address] [facility] [place] [address] * Differential, auto (01/25/2025 7:59 PM CDT) Neutrophil abs 4.71 1.50 - 6.50 K/cumm Imm gran abs 0.02 0.00 - 0.10 K/cumm [facility] Lymphocyte abs 3.01 0.80 - 3.30 K/cumm [facility] Monocyte abs 0.61 0.20 - 0.80 K/cumm [facility] Eosinophil abs 0.00 0.00 - 0.50 K/cumm [facility] Basophil abs 0.04 0.00 - 0.10 K/cumm [facility] Neutrophil pct 56.1 % [facility] Comment: Interpretive Data Percent cell count reference ranges are not reported, since discordance with absolute values may lead to misinterpretation of CBC data. Current Interpretive Data was last revised on 2017. Imm gran pct 0.2 % [facility] Comment: Interpretive Data Percent cell count reference ranges are not reported, since discordance with absolute values may lead to misinterpretation of CBC data. Current Interpretive Data was last revised on 2017. Lymphocyte pct 35.9 % [facility] Comment: Interpretive Data Percent cell count reference ranges are not reported, since discordance with absolute values may lead to misinterpretation of CBC data. Current Interpretive Data was last revised on 2017. Monocyte pct 7.3 % [facility] Comment: Interpretive Data Percent cell count reference ranges are not reported, since discordance with absolute values may lead to misinterpretation of CBC data. Current Interpretive Data was last revised on 2017. Eosinophil pct 0.0 % [facility] Comment: Interpretive Data Percent cell count reference ranges are not reported, since discordance with absolute values may lead to misinterpretation of CBC data. Current Interpretive Data was last revised on 2017. Basophil pct 0.5 % [facility] Comment: Interpretive Data Percent cell count reference ranges are not reported, since discordance with absolute values may lead to misinterpretation of CBC data. Current Interpretive Data was last revised on 2017. Blood 01/25/2025 7:59 PM CDT 01/25/2025 8:04 PM CDT Sol Yates MD LAB BLOOD ORDERABLES Fi nal Result Performing Organization Address City/[facility]/ZIP Co de Phone Number [address] [place] [address] * Thyroid Function [place] (01/25/2025 7:59 PM CDT) Pathologist [facility] TSH 1.73 0.30 - 4.20 mcIUnit/mL Blood 01/25/2025 7:59 PM CDT 01/25/2025 8:04 PM CDT Sol Yates MD LAB BLOOD ORDERABLES Fi nal Result Performing Organization Address [facility] Co de Phone Number [address] [address] * (ABNORMAL) CBC with auto differential (01/25/2025 7:59 PM CDT) Pathologist [facility] WBC 8.39 3.80 - 9.90 K/cumm Hgb 13.7 11.9 - 15.5 g/dL [facility] Hct 39.0 35.6 - 45.5 % [facility] Plt 304 150 - 400 K/cumm [facility] MPV 8.9(L) 9.1 - 12.3 fL [facility] RBC 4.42 3.90 - 5.20 M/cumm [facility] MCV 88.2 81.3 - 96.4 fL [facility] MCH 31.0 27.1 - 33.3 pg [facility] MCHC 35.1 32.3 - 35.7 g/dL [facility] RDW CV 13.2 11.1 - 14.9 % [facility] RDW SD 42.9 35.7 - 48.1 fL [facility] NRBC abs 0.00 0.00 - 0.01 K/cumm [facility] Blood Venous blood specimen / Unknown 01/25/2025 7:59 PM CDT 01/25/2025 8:04 PM CDT Sol Yates MD LAB BLOOD ORDERABLES Fi nal Result Performing Organization Address City/[facility]/ZIP Co de Phone Number [address] [place] [address] * (ABNORMAL) Ethanol (01/25/2025 7:59 PM CDT) Ethanol 14(H) <=10 mg/dL Comment: Interpretive Data Legal limit of intoxication > or = 80 mg/dL Levels > or = 400 mg/dL are potentially TOXIC. Current interpretive data was last revised on 2018. Blood 01/25/2025 7:59 PM CDT 01/25/2025 8:04 PM CDT Sol Yates MD LAB BLOOD ORDERABLES Fi nal Result Performing Organization Address City/[facility] Co de Phone Number [address] [place] [address] * (ABNORMAL) Comprehensive metabolic panel (01/25/2025 7:59 PM CDT) Sodium 140 135 - 145 mmol/L Potassium, pl 3.5 3.3 - 4.9 mmol/L [facility] Chloride 104 97 - 110 mmol/L [facility] CO2 21(L) 22 - 32 mmol/L [facility] Anion gap 15 2 - 15 mmol/L [facility] BUN 9 6 - 25 mg/dL [facility] Creatinine 1.00 0.60 - 1.10 mg/dL [facility] Glucose 122 70 - 199 mg/dL [facility] Comment: Interpretive Data Fasting glucose >/= 126 [...] 2022. Calcium 8.9 8.5 - 10.3 mg/dL [facility] Bilirubin, total 0.4 0.1 - 1.2 mg/dL [facility] Protein, pl 7.4 6.5 - 8.5 g/dL [facility] Albumin 4.3 3.5 - 5.0 g/dL [facility] Alk phos 112 40 - 130 Units/L [facility] ALT 30 7 - 45 Units/L [facility] AST 28 10 - 45 Units/L [facility] Blood 01/25/2025 7:59 PM CDT 01/25/2025 8:04 PM CDT us Sol Yates MD LAB BLOOD ORDERABLES Fi nal Result [facility] [address] [facility] [place] [address] * eGFR (01/22/2025 6:09 AM CDT) eGFR [...] Final Resul t [facility] [address] [facility] [place] [address] * (ABNORMAL) CBC without differential (01/22/2025 6:09 [...] Final Resul t [facility] 1 [facility] [place] [address] * Comprehensive metabolic panel (01/22/2025 6:09 AM [...] Final Resul t KORY DELANEY ([place]) 1 [facility] [place] [address] * Urinalysis reflex to microscopic and culture [...] tendency for uric acid stone formation. Source: [facility] DocASAP Current Interpretive Data was last revised on [...] 1:10 AM CDT 01/21/2025 1:25 AM CDT Marilu Pierce NP LAB MICROBIOLOGY - GENERAL ORDER STUART Final Result KORY DELANEY ([place]) 1 [facility] [place] [address] * (ABNORMAL) Drugs of Abuse Screen, Urine without Confirmation (01/21/2025 1:10 AM CDT) Amphetamine, ur Screen Positive, presumptive (A) CutOff [...] Methadone, ur Not Detected CutOff 300ng/mL [facility] ([place]) Comment: Interpretive Data - Methadone: Samples containing greater than 300 ng/mL d,l-methadone or other cross-reacting compounds are reported as positive. False positive and false negative results are possible. Confirmatory testing required for definitive results. Current Interpretive Data was last reviewed 2023. Opiates, ur Not Detected CutOff 300ng/mL [facility] ([place]) Comment: Interpretive Data - Opiates: Samples containing greater than 300 ng/mL morphine or other cross-reacting compounds are reported as positive. False positive and false negative results are possible. Confirmatory testing required for definitive results. Current Interpretive Data was last reviewed 2023. Oxycodone, ur Not Detected CutOff 100ng/mL [facility] ([place]) Comment: Interpretive Data - Oxycodone: Samples containing greater than 100 ng/mL oxycodone or other cross-reacting compounds are reported as positive. False positive and false negative results are possible. Confirmatory testing required for definitive results. Current Interpretive Data was last reviewed 2023. Phencyclidine, ur Not Detected CutOff 25 ng/mL [facility] ([place]) Comment: Interpretive Data - Phencyclidine: Samples containing greater than 25 ng/mL phencyclidine or other cross-reacting compounds are reported as positive. False positive and false negative results are possible. Confirmatory testing required for definitive results. Current Interpretive Data was last reviewed 2023. Urine Creatinine 85 mg/dL [facility] B[facility]GER [facility] ([place]) Comment: Interpretive Data Urine Creatinine: < [...] be used for Pain Management purposes. Marilu Guerrahtar LAB URINE ORDERABLES Final Resul t KORY DELANEY ([place]) 1 [place] [address] * Sepsis Lactate w/ Reflex (01/21/2025 12:41 AM CDT) Sepsis Lactate 1.5 0.7 - 2.0 mmol/L Blood 01/21/2025 12:4 1 AM CDT 01/21/2025 12:41 AM CDT [facility] LAB BLOOD ORDERABLES Final Resul t Performing Organization Address City/[facility] Co de Phone Number KORY DELANEY ([place]) 1 [place] [address] * eGFR (01/21/2025 12:41 AM CDT) eGFR [...] BLOOD ORDERABLES Final Resul t KORY DELANEY ([place]) 1 [facility] [place] [address] * Differential, auto (01/21/2025 12:41 AM CDT) Neutrophil abs 3.53 1.50 - 6.50 K/cumm Imm gran abs 0.01 0.00 - 0.10 K/cumm [facility] ([place]) Lymphocyte abs 3.13 0.80 - 3.30 K/cumm [facility] ([place]) Monocyte abs 0.38 0.20 - 0.80 K/cumm [facility] ([place]) Eosinophil abs 0.00 0.00 - 0.50 K/cumm [facility] ([place]) Basophil abs 0.04 0.00 - 0.10 K/cumm [facility] ([place]) Neutrophil pct 49.8 % [facility] R [facility] ([place]) Comment: Interpretive Data Percent cell count reference ranges are not reported, since discordance with absolute values may lead to misinterpretation of CBC data. Current Interpretive Data was last revised on 2017. Imm gran pct 0.1 % [facility] ([place]) Comment: Interpretive Data Percent cell count reference ranges are not reported, since discordance with absolute values may lead to misinterpretation of CBC data. Current Interpretive Data was last revised on 2017. Lymphocyte pct 44.1 % [facility] ([place]) Comment: Interpretive Data Percent cell count reference ranges are not reported, since discordance with absolute values may lead to misinterpretation of CBC data. Current Interpretive Data was last revised on 2017. Monocyte pct 5.4 % [facility] ([place]) Comment: Interpretive Data Percent cell count reference ranges are not reported, since discordance with absolute values may lead to misinterpretation of CBC data. Current Interpretive Data was last revised on 2017. Eosinophil pct 0.0 % [facility] ([place]) Comment: Interpretive Data Percent cell count reference [...] Final Resul t [facility] ([place]) 1 [facility] [place] [address] * (ABNORMAL) CBC with auto differential (01/21/2025 [...] 1 AM CDT 01/21/2025 12:41 AM CDT Kamal Stan [employer] LAB BLOOD ORDERABLES Final [facility]ul t [facility] 1 [facility] [place] [address] * Comprehensive metabolic panel (01/21/2025 12:41 AM [...] ORDERABLES Final Resul t Performing Organization Address City/[facility] Co de Phone Number [facility] ([place]) 1 [facility] [place] [address] * (ABNORMAL) Ethanol (01/20/2025 7:05 PM CDT) [...] ORDERABLES Final Resu lt Performing Organization Address [facility] Co de Phone Number [facility] ([place]) 1 [facility] [place] [address] * DIAGNOSTIC MAMMOGRAM BILATERAL W MARY ANNE (05/11/2015 11:49 AM MICROARRAY SPECIALIST) Anatomical Region Laterality Modality Breast Bilateral Mammography 05/11/2015 11:4 9 AM MICROARRAY SPECIALIST Narrative 05/11/2015 11:11 PM MICROARRAY SPECIALIST SCREENING MAMM W MARY ANNE BI Acc#: [id number] Screening Mamm Bi Acc#: [id number] DATE OF EXAM: May 11 2015 Performed [...] Fax: -- Attending Fax: -- Attending ID: [id number] Requesting ID: [id number] Report To 1 ID: [id number] Report To 1 Name: ROD DUQUE Report To 1 FAX: -- NextGen Order #: Procedure Note Provider, MD Manuelito - 10/31/2016 SCREENING MAMM W MARY ANNE BI Acc#: [id number] Screening Mamm Bi Acc#: [id number] DATE OF EXAM: May 11 2015 Performed by: dr DICKENS HISTORY: Baseline screening. RESULT: Craniocaudal and mediolateral [...] Fax: -- Attending Fax: -- Attending ID: [id number] Requesting ID: [id number] Report To 1 ID: [id number] Report To 1 Name: ROD DUQUE Report To 1 FAX: -- NextGen Order #: Historical Provider MD KUHN MAMMO PROCEDURES Margarita l Result from Last 3 Months or Most Recently Relevant to Health Maintenance Insurance [facility] Advance Directives For more information, please contact: [phone] * Full Code (Latest Code Status on [...] 8:35 PM 04/10/2020 6:28 PM Care Teams Employment Agency Manager Relationship Specialty Start Date End Date Arianne Alarcon NP [address] [place] [address] PCP - General 04/24/17 Derrick Walker MD [address] [place] [address] Consulting Physician Plastic Surgery 12/25/19
--- OUTSIDE RECORDS SUMMARY | 2025-02-17 16:58 | XMS_ITS | Encounter Summary ---
Author Organization [facility] Address [address] [place] [address] Phone Care Team Providers Care Supervisor Salvage Name Role Phone Jack Dukes MD Unavailable [phone] Arianne Alarcon APRN, TANK PUMPER PANELBOARD Primary Care Provider [phone] Lito Chatterjee MD Unavailable [phone] Gustabo Falk MD Unavailable [phone] Amrit Goddard MD Unavailable Phan Grant MD Unavailable [phone] Reason for Visit * Reason Comments Medication Refill Encounter Details Date Type Department Care Team (Late st Contact Info) Description 12/08/2021 Refill [facility] - Neurology [facility] [address] [place] [address] Jack Dukes MD [address] [place] [address] Medication Refill Social History Tobacco Use Types Packs/Day Years Used Date Smoking Tobacco: Never Smokeless Tobacco: Never Alcohol Use Standard Drinks/Week Comments No 0 (1 standard drink = 0.6 oz pur e alcohol) Comments No Sex and Gender Information Value Date Recorded Sex Assigned at Not on file Legal Sex Female 2:52 AM SILK BLOCKER Gender Identity Not on file Sexual Orientation Not on file 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 Not on file Not on file [...] st Contact Info) Description 08/25/2025 2:00 PM SILK BLOCKER Office Visit [facility] Oncology Services [address] [place] [address] Phan Grant MD [address] [place] [address] Discharge Disposition: Discharged to home or Selfcare documented as of this encounter Visit Diagnoses Diagnosis Seizures (HCC) Other convulsions documented in this encounter Care Teams Supervisor Salvage Relationship Specialty Start Date End Date Arianne Alarcon APRN, CNP [address] [place] [address] PCP - General Family Medicine 08/29/16 Jack Dukes MD [address] [place] [id number] Consulting Physician Neurology 08/21/16 Lito Chatterjee MD [address] [place] [address] Consulting Physician General Surgery 04/27/19 Gustabo Falk MD [address] [facility] [place] [address] Consulting Physician Radiation Oncology 04/27/19 Amrit Goddard MD [address] [address] Consulting Physician General Surgery 06/08/19 Phan Grant MD [address] [place] [address] Consulting Physician Medical Oncology 02/16/20 documented as of this encounter
--- OUTSIDE RECORDS SUMMARY | 2025-02-17 16:58 | XMS_ITS | Continuity of Care Document ---
Author Organization [facility] Address [address] [place] [address] [place] [address] Phone Care Team Providers Care College Specialist Name Role Phone Massimo Herring MD Unavailable [...] Diagnoses Date Provider Providers Copied on Encounter [facility], [address] [place], [place], [id number], tel:[phone] [facility] Medicine No Information [address] [facility] [place], [id number] , [place]. tel:[phone] Referring Provider: Massimo Herring, [address] [place], [place], [id number]. tel:[phone] OFFICE/OUTPAT IENT VISIT, [facility], [address] [place], [place], [address], tel:[phone] [facility] Seizure (chief complaint) depression (chief complaint) ADD (chief complaint) back pain (chief complaint) Epilepsy, unspecified, without mention of intractable epilepsyLumbago [address] [place], [place], [address] , . tel:[phone] Referring Provider: Massimo Herring, [address] [place], [place], [address]. tel:[phone] Family History Family Member Type Diagnosis Age [...]
--- OUTSIDE RECORDS SUMMARY | 2025-02-17 16:58 | XMS_ITS | Encounter Summary ---
Author Organization [facility] Address [address] [place] [address] Phone Care Team Providers Care Mri Assistant Name Role Phone Jack Dukes MD Unavailable [phone] Arianne Alarcon APRN, OCC THERAPIST Primary Care Provider [phone] Lito Chatterjee MD Unavailable [phone] Gustabo Falk MD Unavailable [phone] Amrit Goddard MD Unavailable Phan Grant MD Unavailable [phone] Reason for Visit * Reason Comments Medication Refill Encounter Details Date Type Department Care Team (Late st Contact Info) Description 05/30/2021 Refill [facility] - Neurology [facility] [address] [place] [address] Jack Dukes MD [address] [place] [address] Medication Refill Social History Tobacco Use Types Packs/Day Years Used Date Smoking Tobacco: Never Smokeless Tobacco: Never Alcohol Use Standard Drinks/Week Comments No 0 (1 standard drink = 0.6 oz pur e alcohol) Comments No Sex and Gender Information Value Date Recorded Sex Assigned at Not on file Legal Sex Female 2:52 AM SEAMAN Gender Identity Not on file Sexual Orientation Not on file 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) documented in this encounter Care Teams Mri Assistant Relationship Specialty Start Date End Date Arianne Alarcon APRN, CNP [address] [place] [address] PCP - General Family Medicine 08/29/16 Jack Dukes MD [address] [place] [address] Consulting Physician Neurology 08/21/16 Lito Chatterjee MD [address] [place] [address] Consulting Physician General Surgery 04/27/19 Gustabo Falk MD [address] [facility] [place] [place] [address] Consulting Physician Radiation Oncology 04/27/19 Amrit Goddard MD [address] [address] Consulting Physician General Surgery 06/08/19 Phan Grant MD [address] [place] [address] Consulting Physician Medical Oncology 02/16/20 documented as of this encounter
--- OUTSIDE RECORDS SUMMARY | 2025-02-17 16:58 | XMS_ITS | Encounter Summary ---
Author Organization [facility] Address [address] [place] [address] Phone Care Team Providers Care Paleontological Helper Name Role Phone Jack Dukes MD Unavailable [phone] Arianne Alarcon APRN, SUPPLY CHAIN LOGISTICS MANAGER Primary Care Provider [phone] Lito Chatterjee MD Unavailable [phone] Gustabo Falk MD Unavailable [phone] Amrit Goddard MD Unavailable Phan Grant MD Unavailable [phone] Reason for Visit * Reason Comments Medication Refill Encounter Details Date Type Department Care Team (Late st Contact Info) Description 02/22/2020 Refill [facility] - [place] [address] [place] [address] Jack Dukes MD [address] [place] [address] Medication Refill Social History Tobacco Use Types Packs/Day Years Used Date Smoking Tobacco: Never Smokeless Tobacco: Never Alcohol Use Standard Drinks/Week Comments No 0 (1 standard drink = 0.6 oz pur e alcohol) Comments No Sex and Gender Information Value Date Recorded Sex Assigned at Not on file Legal Sex Female 2:52 AM SLUBBER TENDER Gender Identity Not on file Sexual Orientation Not on file 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 Not on file Not on file [...] st Contact Info) Description 08/25/2025 2:00 PM SLUBBER TENDER Office Visit [facility] Oncology Services [address] [place] [address] Phan Grant MD [address] [place] [address] Discharge Disposition: Discharged to home or Selfcare documented as of this encounter Visit Diagnoses Diagnosis 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) documented in this encounter Care Teams Paleontological Helper Relationship Specialty Start Date End Date Arianne Alarcon APRN, CNP [address] [place] [address] PCP - General Family Medicine 08/29/16 Jack Dukes MD [address] [place] [address] Consulting Physician Neurology 08/21/16 Lito Chatterjee MD [address] [place] [address] Consulting Physician General Surgery 04/27/19 Gustabo Falk MD [address] [facility] [place] [address] Consulting Physician Radiation Oncology 04/27/19 Amrit Goddard MD [address] [address] Consulting Physician General Surgery 06/08/19 Phan Grant MD [address] [place] [address] Consulting Physician Medical Oncology 02/16/20 documented as of this encounter
--- OUTSIDE RECORDS SUMMARY | 2025-02-17 16:58 | XMS_ITS | Encounter Summary ---
Author Organization [facility] Address [address] [place] [address] Phone Care Team Providers Care Biomedical Scientist Name Role Phone Jack Dukes MD Unavailable [phone] Arianne Alarcon APRN, HARNESS PREPARER Primary Care Provider [phone] Lito Chatterjee MD Unavailable [phone] Gustabo Falk MD Unavailable [phone] Amrit Goddard MD Unavailable Phan Grant MD Unavailable [phone] Reason for Visit * Reason Comments Medication Refill Encounter Details Date Type Department Care Team (Late st Contact Info) Description 03/22/2022 Refill [facility] - Neurology [facility] [address] [place] [address] Jack Dukes MD [address] [place] [address] Medication Refill Social History Tobacco Use Types Packs/Day Years Used Date Smoking Tobacco: Never Smokeless Tobacco: Never Alcohol Use Standard Drinks/Week Comments No 0 (1 standard drink = 0.6 oz pur e alcohol) Comments No Sex and Gender Information Value Date Recorded Sex Assigned at Not on file Legal Sex Female 2:52 AM ELECTRIC METER INSTALLER HELPER Gender Identity Not on file Sexual Orientation Not on file 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 Not on file Not on file Not on file documented as of this encounter Plan of Treatment Upcoming Encounters Date Type Department Care Team (Late st Contact Info) Description 08/25/2025 2:00 PM ELECTRIC METER INSTALLER HELPER Office Visit [facility] Oncology Services [address] [place] [address] Phan Grant MD [address] [place] [address] Discharge Disposition: Discharged to home or Selfcare documented as of this encounter Visit Diagnoses Diagnosis Seizures (HCC) Other convulsions documented in this encounter Care Teams Biomedical Scientist Relationship Specialty Start Date End Date Arianne Alarcon APRN, CNP [address] [place] [address] PCP - General Family Medicine 08/29/16 Jack Dukes MD [address] [place] [address] Consulting Physician Neurology 08/21/16 Lito Chatterjee MD [address] [place] [address] Consulting Physician General Surgery 04/27/19 Gustabo Falk MD [address] [place] [address] Consulting Physician Radiation Oncology 04/27/19 Amrit Goddard MD [address] [address] Consulting Physician General Surgery 06/08/19 Phan Grant MD [address] [place] [address] Consulting Physician Medical Oncology 02/16/20 documented as of this encounter
--- OUTSIDE RECORDS SUMMARY | 2025-02-17 16:58 | XMS_ITS ---
Author Organization [facility] Address [address] [place] [address] Care Team Providers Care Policy Writer Typist Name Role Phone Pavithra Castillo Primary Care Provider [phone] [facility], Adult ROLLY Unavailabl e [phone] REASON FOR VISIT ER tracking info Social History Sex Assigned At : Social History Observation Description Sex Assigned At Female Encounters Encounter Location Date Provider Diagnosis [address] [place] [address] 02/10/2025 Pavithra Castillo Plan Of Treatment Next Appt Details Provider Name:Kai alarcon, 03/02/2025 09:40:00 AM, [address], [place], [address], Progress Notes * Lu NGUYỄNDOB: [birth year] (49 yo F)Acc No.[id number]:02/10/2025 UNLOCKED PROGRESS NOTE Patient: Ashley WALKERdi :1975 A ge:49 Y S ex:Female Address:[place], [address] Subjective: * Chief Complaints: * E R tracking info * HPI: E R/Hospital Follow-up: ER/Hopsital/Urgent Care follow-up. Notification of ER/hospital visit from: O ther: Pt. was sent to the ER/Hospital ([facility]) v ia EMS due to having a seizure while having her labs completed. W RU client went to ER 02/10/25 and sent back to [facility] the same day. W RU client went back to ER 02/11/25 and was sent back the same day.. If instructed by nurse/provider, did the pt go to ER/UC? E R/Urgent Care follow-through Y es . Date of ER/urgent visit or hospitalization: and 02/11/25. Reason for the Visit: W itnessed seizure like activity 02/10/25 S ent back to ER 02/11/25 as client was not feeling well. . Visit Type and Location: . , Emergency Room x2 . Disclosure signed to obtain records: . . Records Requested Date D ate, First Attempt: . 02/17/25 SLIM Record request faxed to [facility] D ate, Second Attempt: . D ate, Third Attempt: . Records Received: D ate Records Received . Medication Changes: . . Signficant labs, imaging or other results: . . New diagnoses? . 02/10/25 per pt they said she had a Syncopal episode and 02/11/25 client said they reported she was dehydrated. . Provider recommended f/u: . [facility] client sees PCP and Neurologist outside of [place]. Client was encouraged to call her PCP and Neurologist to schedule after ER follow-ups. . ER/Hospital F/U appointment with [facility]: [facility] f/u appointment date: . Client will need to schedule with her PCP and Neurologist. Appointment Kept? D id the patient keep the appointment with [facility]? . Client [facility] a [facility]. Had a New Psych appointment 02/16/25 and has a f/u psych appointment 03/02/25. Nurse completing documentation [facility] Walter Zaman RN . [facility] Nurses . * Medical History: * Surgical History: * Hospitalization/Major Diagno stic Procedure: * Medications: Objective: * Vitals: * Physical Examination: Assessment: Plan: * Treatment: * Procedure Codes: C HS01 ER/hospitalization continuity of care * * Date: History and Physical Notes * HPI (History of Present Illness) Category Sub-Category Detail Notes Category Not es ER/Hospital Follow-up Visit Type and Location: ., Emergency Room x2 Disclosure signed to obtain records: . Records Requested Date Date, First Attempt:: . SLIM Record request faxed to [facility] Date, Second Attempt:: . Date, Third Attempt: : . Records Received: Date Records Received: . Medication Changes: . Signficant labs, imaging or other results: . New diagnoses? .02/10/25 per pt the y said she had a Syncopal episode and 02/11/25 client said they reported she was dehydrated. Provider recommended f/u: .[facility] client se PCP and Neurologist outside of [place]. Client was encouraged to call her PCP and Neurologist to schedule after ER follow-ups. ER/Hospital F/U appointment with [facility]: [facility] f/u appointment date:: .Client will need to schedule with her PCP and Neurologist. Notification of ER/hospital visit from: Other: Pt. was sent to the ER/Hospital ( [facility]) via EMS due to having a seizure while having her labs completed. [facility] client went to ER 02/10/25 and sent back to [facility] the same day. [facility] client went back to ER 02/11/25 and was sent back the same day. Reason for the Visit: Witnessed seizure like activity 02/10/25 Sent back to ER 02/11/25 as client was not feeling well. Date of ER/urgent visit or hospitalization: 02/10/2025 and 02/11/25 Nurse completing documentation [facility] Nurses: Marga Zaman, RN . [facility] Nurses: . If instructed by nurse/provider, did the pt go to ER/UC? ER/Urgent Care follow-through: Yes . Appointment Kept? Did the patient keep the appointment with [facility]?: .Client has a New MAT today at the [facility]. Had a New Psych appointment 02/16/25 and has a f/u psych appointment 03/02/25.
--- OUTSIDE RECORDS SUMMARY | 2025-02-17 16:58 | XMS_ITS | Encounter Summary ---
Author Organization [facility] Address [address] [place] [address] Phone Care Team Providers Care Manager Media Relations Name Role Phone Jack Dukes MD Unavailable [phone] Arianne Alarcon APRN, DRUMS TEACHER Primary Care Provider [phone] Lito Chatterjee MD Unavailable [phone] Gustabo Falk MD Unavailable [phone] Amrit Goddard MD Unavailable Phan Grant MD Unavailable [phone] Reason for Visit * Reason Comments Medication Refill Encounter Details Date Type Department Care Team (Late st Contact Info) Description 04/25/2022 Refill [facility] - Neurology [facility] #2 [place] [address] Jack Dukes MD [address] [place] [address] Medication Refill Social History Tobacco Use Types Packs/Day Years Used Date Smoking Tobacco: Never Smokeless Tobacco: Never Alcohol Use Standard Drinks/Week Comments No 0 (1 standard drink = 0.6 oz pur e alcohol) Comments No Sex and Gender Information Value Date Recorded Sex Assigned at Not on file Legal Sex Female 2:52 AM MONORAIL CAR OPERATOR Gender Identity Not on file Sexual Orientation Not on file 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 Not on file Not on file Not on file documented as of this encounter Plan of Treatment Upcoming Encounters Date Type Department Care Team (Late st Contact Info) Description 08/25/2025 2:00 PM MONORAIL CAR OPERATOR [facility] Oncology Services [address] [place] [address] Phan Grant MD [address] [place] [address] Discharge Disposition: Discharged to home or Selfcare documented as of this encounter Visit Diagnoses Diagnosis Seizures (HCC) Other convulsions documented in this encounter Care Teams Manager Media Relations Relationship Specialty Start Date End Date Arianne Alarcon APRN, CNP [address] [place] [address] PCP - General Family Medicine 08/29/16 Jack Dukes MD [address] [place] [address] Consulting Physician Neurology 08/21/16 Lito Chatterjee MD [address] [place] [address] Consulting Physician General Surgery 04/27/19 Gustabo Falk MD [address] [place] [address] Consulting Physician Radiation Oncology 04/27/19 Amrit Goddard MD [address] [address] Consulting Physician General Surgery 06/08/19 Phan Grant MD [address] [place] [address] Consulting Physician Medical Oncology 02/16/20 documented as of this encounter
--- OUTSIDE RECORDS SUMMARY | 2025-02-17 16:58 | XMS_ITS ---
Author Organization [facility] Address [address] [place] [address] Phone Care Team Providers Care Analysis Analyst Name Role Phone Jack Dukes MD Unavailable [phone] Arianne Alarcon APRN, APPRENTICE JOCKEY Primary Care Provider [phone] Lito Chatterjee MD Unavailable [phone] Gustabo Falk MD Unavailable [phone] Amrit Goddard MD Unavailable Phan Grant MD Unavailable [phone] Active Problems * This document contains information [...] from 04/27/2019:Stage IIB(cT2, cN0, cM0, G3, ER+, MI-, HER2-) - Signed by Gustabo Falk MD on 04/28/2019 Pathologic stage from 04/27/2019:Stage IIB(pT2, pN1mi(sn), cM0, G3, ER+, MI-, HER2-) - Unsigned Premenopausal patient 04/22/2019 Seizures [...]
--- OUTSIDE RECORDS SUMMARY | 2025-02-17 16:58 | XMS_ITS | Encounter Summary ---
Author Organization [facility] Address [address] [place] [address] Phone Care Team Providers Care Shell Core And Molding Supervisor Name Role Phone Jack Dukes MD Unavailable [phone] Arianne Alarcon APRN, ENCHILADA MAKER Primary Care Provider [phone] Lito Chatterjee MD Unavailable [phone] Gustabo Falk MD Unavailable [phone] Amrit Goddard MD Unavailable Phan Grant MD Unavailable [phone] Reason for Visit * Reason Comments Medication Refill Encounter Details Date Type Department Care Team (Late st Contact Info) Description 05/24/2022 Refill [facility] - Neurology [facility] #[address] [place] [address] Jack Dukes MD [address] [place] [address] Medication Refill Social History Tobacco Use Types Packs/Day Years Used Date Smoking Tobacco: Never Smokeless Tobacco: Never Alcohol Use Standard Drinks/Week Comments No 0 (1 standard drink = 0.6 oz pur e alcohol) Comments No Sex and Gender Information Value Date Recorded Sex Assigned at Not on file Legal Sex Female 2:52 AM TECTONOPHYSICIST Gender Identity Not on file Sexual Orientation Not on file 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 Not on file Not on file Not on file documented as of this encounter Plan of Treatment Upcoming Encounters Date Type Department Care Team (Late st Contact Info) Description 08/25/2025 2:00 PM TECTONOPHYSICIST Office Visit [facility] Oncology Services [address] [place] [address] Phan Grant MD [address] [place] [address] Discharge Disposition: Discharged to home or Selfcare documented as of this encounter Visit Diagnoses Diagnosis Seizures (HCC) Other convulsions documented in this encounter Care Teams Shell Core And Molding Supervisor Relationship Specialty Start Date End Date Arianne Alarcon APRN, CNP [address] [place] [address] PCP - General Family Medicine 08/29/16 Jack Dukes MD [address] [place] [address] Consulting Physician Neurology 08/21/16 Lito Chatterjee MD [address] [place] [address] Consulting Physician General Surgery 04/27/19 Gustabo Falk MD [address] [place] [address] Consulting Physician Radiation Oncology 04/27/19 Amrit Goddard MD [address] [address] Consulting Physician General Surgery 06/08/19 Phan Grant MD [address] [place] [address] Consulting Physician Medical Oncology 02/16/20 documented as of this encounter
--- OUTSIDE RECORDS SUMMARY | 2025-02-17 16:58 | XMS_ITS | Encounter Summary ---
Author Organization [facility] Address [address] [place] [address] Phone Care Team Providers Care Automatic Shirring Machine Operator Name Role Phone Jack Dukes MD Unavailable [phone] Arianne Alarcon APRN, ABNORMAL PSYCHOLOGY TEACHER Primary Care Provider [phone] Lito Chatterjee MD Unavailable [phone] Gustabo Falk MD Unavailable [phone] Amrit Goddard MD Unavailable Phan Grant MD Unavailable [phone] Reason for Visit * Reason Comments Medication Refill Encounter Details Date Type Department Care Team (Late st Contact Info) Description 12/06/2020 [facility]ill [facility] [place] [address] [place] [address] Jack Dukes MD [address] [place] [address] Medication Refill Social History Tobacco Use Types Packs/Day Years Used Date Smoking Tobacco: Never Smokeless Tobacco: Never Alcohol Use Standard Drinks/Week Comments No 0 (1 standard drink = 0.6 oz pur e alcohol) Comments No Sex and Gender Information Value Date Recorded Sex Assigned at Not on file Legal Sex Female 2:52 AM COMMUTATOR V RING ASSEMBLER Gender Identity Not on file Sexual Orientation Not on file 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 Date 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 End 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 Not on file Not on [...] st Contact Info) Description 08/25/2025 2:00 PM COMMUTATOR V RING ASSEMBLER Office Visit [facility] Oncology Services [address] [place] [address] Phan Grant MD [address] [place] [address] Discharge Disposition: Discharged to home or Selfcare documented as of this encounter Visit Diagnoses Diagnosis 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) documented in this encounter Care Teams Automatic Shirring Machine Operator Relationship Specialty Start Date End Date Arianne Alarcon APRN, CNP [address] [place] [address] PCP - General Family Medicine 08/29/16 Jack Dukes MD [address] [place] [address] Consulting Physician Neurology 08/21/16 Lito Chatterjee MD [address] [place] [address] Consulting Physician General Surgery 04/27/19 Gustabo Falk MD [address] [facility] [place] [address] Consulting Physician Radiation Oncology 04/27/19 Amrit Goddard MD [address] [address] Consulting Physician General Surgery 06/08/19 Phan Grant MD [address] [place] [address] Consulting Physician Medical Oncology 02/16/20 documented as of this encounter
--- OUTSIDE RECORDS SUMMARY | 2025-02-17 16:58 | XMS_ITS | Clinical Summary ---
Author Organization [facility] Address [address] [place] [address] Phone Care Team Providers Care Plant Tour Guide Name Role Phone Jack Dukes MD Unavailable [phone] Arianne Alarcon APRN, BLACK TOPPER Primary Care Provider [phone] Lito Chatterjee MD Unavailable [phone] Gustabo Falk MD Unavailable [phone] Amrit Goddard MD Unavailable Phan Grant MD Unavailable [phone] Allergies Active Allergy Reactions Criticality Noted Date [...] from 04/27/2019:Stage IIB(cT2, cN0, cM0, G3, ER+, OK-, HER2-) - Signed by Gustabo Falk MD on 04/28/2019 Pathologic stage from 04/27/2019:Stage IIB(pT2, pN1mi(sn), cM0, G3, ER+, OK-, HER2-) - Unsigned Premenopausal patient 04/22/2019 Seizures [...] you with the results of the test. 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 Not on file Not on file Not on file Last Filed Vital Signs Vital Sign Reading Time Taken Comments Blood Pressure 131/87 08/26/2024 1:50 PM SOLAR POWER INSTALLER Pulse 92 08/26/2024 1:50 PM SOLAR POWER INSTALLER Temperature 36.6 C (97.9 F) 08/26/2024 1:50 PM SOLAR POWER INSTALLER Respiratory Rate 18 08/26/2024 1:50 PM SOLAR POWER INSTALLER Oxygen Saturation 98% 08/26/2024 1:50 PM SOLAR POWER INSTALLER Inhaled Oxygen Concentration - - Weight 67.3 kg (148 lb 4.8 oz) 08/26/2024 1:50 P M SOLAR POWER INSTALLER Height 165.1 cm (5' 5) 07/09/2024 8:05 PM SOLAR POWER INSTALLER Body Mass Index 24.68 07/09/2024 8:05 PM SOLAR POWER INSTALLER Plan of Treatment Upcoming Encounters Date Type Department Care Team (Late st Contact Info) Description 08/25/2025 2:00 PM SOLAR POWER INSTALLER [facility] [address] [place] [address] Phan Grant MD [address] [place] [address] Discharge Disposition: Discharged to home or Selfcare [...] Fecal Occult Blood 2021 Influenza Immunization (#1) 2025 02/2 , 06/27/2021, 04/07/2020, Additional history exists Respiratory Syncytial [...] this topic Medical Devices Implanted Type Area Pipe Stripper Device Identifier Shelf Expiration Date Model / Serial / Lot Port Implantable Infusion Powerport Mri Airguard Chronoflex 8fr 1 Lumen Attachable Cath Intermediate - [id number] Implanted:Qty: 1 on 05/11/2019 by Lito Chatterjee MD at [facility] IMPLANT Left: Chest BARD ACCESS SYSTEMS 11/03/2020 [id number] / [id number] / [id number] Procedures Procedure Name Priority Date/Time Associated Diagnosis [...] copy. Current study was also evaluated with Hands version 7.2. CLINICAL: Diagnostic study. 6 month follow up post lumpectomy right breast. Patient states feeling a palpable lump that is marked on imaging for approximately 3 months. COMPARISONS: Comparison is made to exam dated: 03/15/2019 [facility]. BREAST TISSUE:There are scattered fibroglandular densities [...] signed by: Mya Patel M.D. ll/:10/12/2019 15:03:41 Supervisor Newspaper Deliveries: Lisa Avelar (R)), [facility] letter sent: Birad 3 Followup Reading location: [facility] OVERALL STUDY BIRADS: 3 Probably benign Procedure [...] copy. Current study was also evaluated with Hands version 7.2. CLINICAL: Diagnostic study. 6 month follow up post lumpectomy right breast. Patient states feeling a palpable lump that is marked on imaging for approximately 3 months. COMPARISONS: Comparison is made to exam dated: 03/15/2019 [facility]. BREAST TISSUE:There are scattered fibroglandular densities [...] signed by: Mya Patel M.D. ll/:10/12/2019 15:03:41 Supervisor Newspaper Deliveries: Lisa Eaton)(M), [facility] letter sent: Birad 3 Followup Reading location: [facility] OVERALL STUDY BIRADS: 3 Probably benign us Lito Chatterjee MD IMG MAMMO ORDERABLES Final Result from Last 3 Months or Most Recently Relevant to Health Maintenance Insurance MEDICAID [place] Advance Directives Documents on File Type Date Recorded Patient Commission Sales Associate Expl anation Power of Energy Systems Laboratory Director for Health Care 05/27/2019 11:53 AM POA-HC 05/27/19 Advance Care Planning Discussion 05/27/2019 11:33 AM ACP DISCUSSION RECOR D 05/27/19 Care Teams Plant Tour Guide Relationship Specialty Start Date End Date Arianne Alarcon APRN, CNP [address] [place] [address] PCP - General Family Medicine 08/29/16 Jack Dukes MD [address] [place] [address] Consulting Physician Neurology 08/21/16 Lito Chatterjee MD [address] [place] [address] Consulting Physician General Surgery 04/27/19 Gustabo Falk MD [address] [place], [place] [address] Consulting Physician Radiation Oncology 04/27/19 Amrit Goddard MD [address] [place] [address] Consulting Physician General Surgery 06/08/19 Phan Grant MD [address] [place] [address] Consulting Physician Medical Oncology 02/16/20
--- OUTSIDE RECORDS SUMMARY | 2025-02-17 16:58 | XMS_ITS | Encounter Summary ---
Author Organization [facility] Address [address] [facility] [place] [address] Phone Care Team Providers Care Data Deliverables Manager Name Role Phone Jack Dukes MD Unavailable [phone] Arianne Alarcon APRN, CNP Primary Care Provider [phone] Lito Chatterjee MD Unavailable Gustabo Falk MD Unavailable [phone] Amrit Goddard MD Unavailable Phan Grant MD Unavailable [phone] Reason for Visit * Reason Comments Medication Refill Encounter Details Date Type Department Care Team (Late st Contact Info) Description 06/09/[address] 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 No / Unsure 06/08/2020 9:05 AM GIFT CONSULTANT documented as of this encounter Miscellaneous Notes * Telephone Encounter - Tanya Hylton APN, CNP - 06/12/2020 1:04 PM GIFT CONSULTANT Filled 2 weeks ago. CONSULTANT * Telephone Encounter - Maria Del Carmen Brasher RN - 06/12/2020 1:03 PM CST Request denied; last filled 05/22/20 with 3 refills. CONSULTANT * Telephone Encounter - Maria Del Carmen Brasher RN - 06/12/2020 11:44 AM CST Okay to refill Lorazepam for Lu? Last fill 2 weeks ago. CONSULTANT documented in this encounter Plan of Treatment Upcoming Encounters Date Type Department Care Team (Late st Contact Info) Description 08/25/2025 2:00 PM GIFT CONSULTANT Office Visit [facility] Oncology Services [address] [place] [address] Phan Grant MD [address] [place] [address] Discharge Disposition: Discharged to home or Selfcare documented as of this encounter Visit Diagnoses Not on filedocumented in this encounter Care Teams Data Deliverables Manager Relationship Specialty Start Date End Date Arianne Alarcon APRN, ROMEL [address] [place] [address] PCP - General Family Medicine 08/29/16 Jack Dukes MD [address] [place] [address] Consulting Physician Neurology 08/21/16 Lito Chatterjee MD [address] [place] [address] Consulting Physician General Surgery 04/27/19 Gustabo Falk MD [address] [place] [address] Consulting Physician Radiation Oncology 04/27/19 Amrit Goddard MD [address] [address] Consulting Physician General Surgery 06/08/19 Phan Grant MD [address] [place] [address] Consulting Physician Medical Oncology 02/16/20 documented as of this encounter
--- OUTSIDE RECORDS SUMMARY | 2025-02-17 16:58 | XMS_ITS | Encounter Summary ---
Author Organization [facility] Address [address] [place] [address] Phone Care Team Providers Care Soil Conservation Aide Name Role Phone Jack Dukes MD Unavailable [phone] Arianne Alarcon APRN, WIG MAKER Primary Care Provider [phone] Lito Chatterjee MD Unavailable [phone] Gustabo Falk MD Unavailable [phone] Amrit Goddard MD Unavailable Phan Grant MD Unavailable [phone] Reason for Visit * Reason Comments Medication Refill Encounter Details Date Type Department Care Team (Late st Contact Info) Description 02/17/2023 Refill [facility] #[address] [place] [address] Jack Dukes MD [address] [place] [address] Medication Refill Social History Tobacco Use Types Packs/Day Years Used Date Smoking Tobacco: Never Smokeless Tobacco: Never Alcohol Use Standard Drinks/Week Comments No 0 (1 standard drink = 0.6 oz pur e alcohol) Comments No Sex and Gender Information Value Date Recorded Sex Assigned at Not on file Legal Sex Female 2:52 AM TECHNICAL ADVISOR Gender Identity Not on file Sexual Orientation Not on file 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) documented in this encounter Care Teams Soil Conservation Aide Relationship Specialty Start Date End Date Arianne Alarcon APRN, ROMEL [address] [place] [address] PCP - General Family Medicine 08/29/16 Jack Dukes MD [address] [place] [address] Consulting Physician Neurology 08/21/16 Lito Chatterjee MD [address] [place] [address] Consulting Physician General Surgery 04/27/19 Gustabo Falk MD [address] [place] [address] Consulting Physician Radiation Oncology 04/27/19 Amrit Goddard MD [address] [address] Consulting Physician General Surgery 06/08/19 Phan Grant MD [address] [place] [address] Consulting Physician Medical Oncology 02/16/20 documented as of this encounter
--- OUTSIDE RECORDS SUMMARY | 2025-02-17 16:58 | XMS_ITS | Encounter Summary ---
Author Organization [facility] Address [address] [facility] [place] [address] Phone Care Team Providers Care Inorganic Chemistry Professor Name Role Phone Jack Dukes MD Unavailable [phone] Arianne Alarcon APRN, CNP Primary Care Provider [phone] Lito Chatterjee MD Unavailable Gustabo Falk MD Unavailable [phone] Amrit Goddard MD Unavailable Phan Grant MD Unavailable [phone] Reason for Visit * Reason Comments Medication Refill Encounter Details Date Type Department Care Team (Late st Contact Info) Description 06/20/[facility] [address] [place] [address] Phan Grant MD [address] [place] [address] Medication Refill Social History Tobacco Use Types Packs/Day Years Used Date Smoking Tobacco: Never Smokeless Tobacco: Never Alcohol Use Standard Drinks/Week Comments No 0 (1 standard drink = 0.6 oz pur e alcohol) Comments No Sex and Gender Information Value Date Recorded Sex Assigned at Not on file Legal Sex Female 2:52 AM FURNACE MECHANIC HELPER Gender Identity Not on file Sexual Orientation Not on file 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 No / Unsure 06/08/2020 9:05 AM FURNACE MECHANIC HELPER documented as of this encounter Miscellaneous Notes * Telephone Encounter - Nikki Martin RN - 06/21/2020 2:16 PM FURNACE MECHANIC HELPER Lorazepam called into pharmacy previous refill not received by pharmacy ACE MECHANIC HELPER documented in this encounter Plan of Treatment Upcoming Encounters Date Type Department Care Team (Late st Contact Info) Description 08/25/2025 2:00 PM FURNACE MECHANIC HELPER [facility] [address] [place] [address] Phan Grant MD [address] [place] [address] Discharge Disposition: Discharged to home or Selfcare documented as of this encounter Visit Diagnoses Not on filedocumented in this encounter Care Teams Inorganic Chemistry Professor Relationship Specialty Start Date End Date Arianne Alarcon APRN, CNP [address] [place] [address] PCP - General Family Medicine 08/29/16 Jack Dukes MD [address] [place] [address] Consulting Physician Neurology 08/21/16 Lito Chatterjee MD [address] [place] [address] Consulting Physician General Surgery 04/27/19 Gustabo Falk MD [address] [address] Consulting Physician Radiation Oncology 04/27/19 Amrit Goddard MD [address] [address] Consulting Physician General Surgery 06/08/19 Phan Grant MD [address] [place] [address] Consulting Physician Medical Oncology 02/16/20 documented as of this encounter
--- OUTSIDE RECORDS SUMMARY | 2025-02-17 16:58 | XMS_ITS | Encounter Summary ---
Author Organization [facility] Address [address] [place] [address] Phone Care Team Providers Care Smoke Room Operator Name Role Phone Jack Dukes MD Unavailable [phone] Arianne Alarcon APRN, HYDROTEL OPERATOR Primary Care Provider [phone] Lito Chatterjee MD Unavailable [phone] Gustabo Falk MD Unavailable [phone] Amrit Goddard MD Unavailable Phan Grant MD Unavailable [phone] Reason for Visit * Reason Comments Medication Refill Encounter Details Date Type Department Care Team (Late st Contact Info) Description 09/10/2023 Refill [facility] - Neurology [facility] [address] [place] [address] Jack Dukes MD [address] [place] [address] Medication Refill Social History Tobacco Use Types Packs/Day Years Used Date Smoking Tobacco: Never Smokeless Tobacco: Never Alcohol Use Standard Drinks/Week Comments No 0 (1 standard drink = 0.6 oz pur e alcohol) Comments No Sex and Gender Information Value Date Recorded Sex Assigned at Not on file Legal Sex Female 2:52 AM MARINE FIRER Gender Identity Not on file Sexual Orientation Not on file 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 file Not on file Not [...] 90 days and meeting all other requirements NE FIRER documented in this encounter Plan of Treatment Upcoming Encounters Date Type Department Care Team (Late st Contact Info) Description 08/25/2025 2:00 PM MARINE FIRER Office Visit [facility] Oncology Services [address] [place] [address] Phan Grant MD [address] [place] [address] Discharge Disposition: Discharged to home or Selfcare documented as of this encounter Visit Diagnoses Diagnosis Seizures (HCC) Other convulsions documented in this encounter Care Teams Smoke Room Operator Relationship Specialty Start Date End Date Arianne Alarcon APRN, CNP [address] [place] [address] PCP - General Family Medicine 08/29/16 Jack Dukes MD [address] [place] [address] Consulting Physician Neurology 08/21/16 Lito Chatterjee MD [address] [place] [address] Consulting Physician General Surgery 04/27/19 Gustabo Falk MD [address] [place] [address] Consulting Physician Radiation Oncology 04/27/19 Amrit Goddard MD [address] [address] Consulting Physician General Surgery 06/08/19 Phan Grant MD [address] [place] [address] Consulting Physician Medical Oncology 02/16/20 documented as of this encounter
--- OUTSIDE RECORDS SUMMARY | 2025-02-17 16:58 | XMS_ITS | Encounter Summary ---
Author Organization [facility] Address [address] [place] [address] Phone Care Team Providers Care Carport Erector Name Role Phone Jack Dukes MD Unavailable [phone] Arianne Alarcon APRN, PATHOLOGY MANAGER Primary Care Provider [phone] Lito Chatterjee MD Unavailable [phone] Gustabo Falk MD Unavailable [phone] Amrit Goddard MD Unavailable Phan Grant MD Unavailable [phone] Reason for Visit * Reason Comments Medication Refill Encounter Details Date Type Department Care Team (Late st Contact Info) Description 11/17/2020 Refill [facility] - Neurology - [place] [address] [place] [address] Jack Dukes MD [address] [place] [address] Medication Refill Social History Tobacco Use Types Packs/Day Years Used Date Smoking Tobacco: Never Smokeless Tobacco: Never Alcohol Use Standard Drinks/Week Comments No 0 (1 standard drink = 0.6 oz pur e alcohol) Comments No Sex and Gender Information Value Date Recorded Sex Assigned at Not on file Legal Sex Female 2:52 AM COMMONWEALTH ATTORNEY Gender Identity Not on file Sexual Orientation Not on file 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 Not on file Not on file [...] st Contact Info) Description 08/25/2025 2:00 PM COMMONWEALTH ATTORNEY Office Visit [facility] Oncology Services [address] [place] [address] Phan Grant MD [address] [place] [address] Discharge Disposition: Discharged to home or Selfcare documented as of this encounter Visit Diagnoses Diagnosis Seizures (HCC) Other convulsions documented in this encounter Care Teams Carport Erector Relationship Specialty Start Date End Date Arianne Alarcon APRN, CNP [address] [place] [address] PCP - General Family Medicine 08/29/16 Jack Dukes MD [address] [place] [address] Consulting Physician Neurology 08/21/16 Lito Chatterjee MD [address] [place] [address] Consulting Physician General Surgery 04/27/19 Gustabo Falk MD [address] [place] [address] Consulting Physician Radiation Oncology 04/27/19 Amrit Goddard MD [address] [address] [address] Consulting Physician General Surgery 06/08/19 Phan Grant MD [address] [place] [address] Consulting Physician Medical Oncology 02/16/20 documented as of this encounter
--- OUTSIDE RECORDS SUMMARY | 2025-02-17 16:59 | XMS_ITS | Patient Health Record ---
Author Organization [facility] Address [address] [place] [address] Care Team Providers Care Lieutenant/Deputy Name Role Phone Pavithra Castillo Primary Care Provider [facility], Adult ROLLY Unavailabl e [phone] Miguel A, Arif Unavailable [phone] Edinson Miller Unavailable [phone] Kai Colindres Unavailable [phone] Gisela Patton Unavailable [phone] aNtalie Martinez Unavailable [phone] Ayesha Hill Unavailable [phone] Edinson Garay Unavailable [phone] Allergies Allergen (clinical drug ingredient) Drug/Non Drug Allergy documented on EMR Reaction Allergy Type Onset Date Status PENICILLIN Unknown Drug Allergy Active SULFA Unknown Drug Allergy Active Results Component Value Reference Range Notes CBC With Differential/Platel et* Reviewed date:02/11/2025 12:17:49 PM Interpretation:Normal Performing Lab:[facility] [place], [address] [facility], [place], Phone - [phone], Director - Earline Notes/Report: WBC 6.4 3.4-10.8 [...] x10E3/uL CMP 14 Comprehensive Metabol ic Panel* Reviewed date:02/11/2025 12:17:50 PM Interpretation:Normal Performing Lab:[facility] [place], [address] [facility], Phone - [phone], [facility]Report: Glucose 98 70-99 mg/dL BUN 10 [...] Screen *HIV 1, 2 Ab, p24 Ag ([id number]) Reviewed date:02/11/2025 12:17:50 PM Interpretation:Normal [facility]forming [facility], [address] [facility], Phone - [phone], Director - [facility] Notes/Report: HIV Ab/p24 Ag Screen Non Reactive Non Reactive HIV-1/HIV-2 antibodies and HIV-1 p24 antigen were NOT detected. There is no laboratory evidence of HIV infection. HIV Negative QuantiFERON-TB Gold Plus ([id number]) Reviewed date:02/11/2025 12:17:50 PM Interpretation: Performing [facility], [address] [facility], Phone - [phone], Director - [facility] Notes/Report: QuantiFERON Incubation TNP Test not performed. No specimen received. QuantiFERON-TB Gold Plus TNP Dejah t not performed Test, Urine Reviewed date:02/08/2025 02:21:29 PM Interpretation: Performing Lab: Notes/Report: Test, Urine negative Negative - Negative 14 Panel Urine Drug Screen Reviewed date:02/08/2025 01:37:51 PM Interpretation: Performing Lab: Notes/Report: THC neg [place] neg MOP (OPI) neg AMP neg MET POS BAR neg BZO POS MDMA neg MTD neg OXY neg PCP neg BUP POS TCA neg FTY neg Breathalyzer Reviewed date:02/09/2025 01:55:40 PM Interpretation: Performing Lab: Notes/Report: ANGELITO 0.000 14 Panel Urine Drug Screen Reviewed date:01/28/2025 03:04:29 PM Interpretation: Performing Lab: Notes/Report: THC neg [place] POS MOP (OPI) neg AMP neg MET neg BAR neg BZO POS MDMA neg MTD neg OXY neg PCP neg BUP neg TCA neg FTY neg Breathalyzer Reviewed date:01/28/2025 03:03:13 PM Interpretation: Performing Lab: Notes/Report: ANGELITO 0.093 Reason For Referral No Information Medications Medication SIG (Take, Route, Frequency, Duration) Notes Start Date End Date Status LaMICtal 100 MG 1 tablet Orally Twic e a day Active Gabapentin 300 MG 1 capsule Orally 3 t imes a day Active ZyrTEC 10 MG 1 tablet Orally Once a day Active Vivitrol 380 MG as directed Intramus cular every 28 days; Duration: 28 days 02/17/2025 Active Wellbutrin SR 100 MG 1 tablet in the mor [place] Orally Once a day Active hydrOXYzine Pamoate 25 MG 1-2 capsules O rally every 4 hours as needed for anxiety, agitation, or inability to sleep. Do not give within 4 hours of diphenhydramine.; Duration: 30 days 02/08/2025 Active Vimpat 200 MG 1 tablet Orally Once a day Active Doxepin HCl 10 MG 1- 2 capsules at bed time as needed for insomnia Orally Once a day; Duration: 30 days On U 02/16/2025 Active Lexapro 20 MG 1 tablet Orally Once a day Active Melatonin 5 MG 1 tablet at bedtime as needed Orally Once a day; Duration: 30 days 02/08/2025 Active Multi Vitamin - 1 tablet Orally Once a day; Duration: 30 days 02/08/2025 Active Omeprazole 20 MG 1 capsule 1/2 to 1 h our before morning meal Orally Once a day Active Social History [...] phone, visiting friends or family, going to uatsdin or club meetings) More than 5 times a week How stressed are you? Stress is when someone feels tense, nervous, anxious, or can\t sleep at night because their mind is troubled Quite a bit In the past year have you sp ent more than 2 nights in a row in a care home, halfway, halfway center, or juvenile correctional facility? No [...] Status W/U Status Risk Notes Problem Insomnia (427572751) Insomnia (G47.00) Active confirmed Problem Major depressive disorder (636899912) Major depressive disorder (F32.9) Active confirmed Problem Psychoactive substance dependence (6181993) Chemical dependency (F19.20) Active confirmed Problem Overweight (288908610) Over weight (E66.3) Active confirmed Problem Opioid dependence (84029842) Opiate dependence (F11.20) Active confirmed Problem Alcohol use disorder (9997285302) Alcohol use disorder (F10.99) Active confirmed Problem Substance dependence (0739678859) Substance dependence (F19.20) Active confirmed Problem Chemical abuse (F19.10) Active confirmed Problem Alcohol abuse (40571957) AA (alcohol abuse) (F10.10) Active confirmed Problem Adult health examination (041384228) Adult general medical exam (Z00.00) Active confirmed Problem Intoxication by drug, with unspecified complication (F19.929) Active confirmed Problem Tobacco user (281732742) Nicotine dependence with current use (F17.200) Active confirmed Vital Signs Heart Rate 93 /min 02/17/2025 Temperature 98.0 degrees Fahrenheit 02/17/2025 Respiratory Rate 18 /min 02/17/2025 Oximetry 99 % 02/17/2025 Blood pressure diastolic 72 mm Hg 02/17/2025 Height 65 in 02/17/2025 Blood pressure systolic 112 mm Hg 02/17/2025 Weight 168.2 lbs 02/17/2025 BMI 27.99 kg/m2 02/17/2025 Encounters Encounter Location Date Provider Diagnosis [facility] [address] [place] [address] 02/10/2025 Pavithra Castillo [address] [place] [address] 03/03/2024 Edinson Miller [address] [place] [address] 12/10/2024 Maximiliano Grady [facility] [place] [address] 02/10/2025 Edinson Garay [facility] [place] [address] 01/25/2025 Gisela Patton [facility] [place] [address] 01/28/2025 Edinson Garay Intoxication by drug, with unspecified complication F19.[address] [address] [place] [address] 02/17/2025 Pavithra Castillo Over weight E66.3 ; Alcohol use disorder F10.99 and Nicotine dependence with current use F17.200 [facility] [place] [address] 02/08/2025 Pavithra Castillo Routine general medical examination at a health care facility Z00.00 and Over weight E66.3 [facility] [place] [address] 01/20/2025 Edinson Garay Alcohol use disorder F10.99 ; Adult general medical exam Z00.00 and Over weight E66.3 [facility] [address] [place] [address] 02/16/2025 Kai Colindres Over weight E66.3 ; Alcohol use disorder F10.99 ; Major depressive disorder F32.9 and Insomnia G47.00 [facility] [address] [address] 02/08/2025 Ayesha GASPAR (alcohol abuse) F10.10 Assessments Encounter Date Diagnosis [...] must be approved by nursing staff before self-administratio n by patients: Diphenhydramine 25 mg, 2 tablets [...] there is pus, a foul odor, increased pain/redness/swell ing, or if soaking through bandages. 02/08/2025 AA (alcohol abuse) (ICD-10 - F10.10) 02/16/2025 Over weight (ICD-10 - E66.3) Client [...] risk versus benefit gone over. Also discussed halfway planning for soberity and whether MAT services [...] risk versus benefit gone over. Also discussed tank terminal gauger planning for soberity and whether MAT services would be beneficial. Client is interested in this. She is confused as to what medication she would like to trial however otherwise naltrexone would have been started at this appt. Client encouraged to ask staff for MAT initial appt to set up services. 02/17/2025 Over weight (ICD-10 - E66.3) 02/17/2025 Alcohol use disorder (ICD-10 - F10.99) 02/17/2025 Nicotine dependence with current use (ICD-10 - F17.200) 02/08/2025 Over weight (ICD-10 - E66.3) 02/16/2025 Major depressive disorder (ICD-10 - F32.9) [...] risk versus benefit gone over. Also discussed halfway planning for soberity and whether MAT services would be beneficial. Client is interested in this. She is confused as to what medication she would like to trial however otherwise naltrexone would have been started at this appt. Client encouraged to ask staff for MAT initial appt to set up services. 01/20/2025 Over weight (ICD-10 - E66.3) 02/16/2025 Insomnia (ICD-10 - G47.00) Client states [...] risk versus benefit gone over. Also discussed tank terminal gauger planning for soberity and whether MAT services would be beneficial. Client is interested in this. She is confused as to what medication she would like to trial however otherwise naltrexone would have been started at this appt. Client encouraged to ask staff for MAT initial appt to set up services. 01/20/2025 Other The patient mehran aparicio her medical history and her ETOH use history. With the known facts from this and her recent seizure within 6 months, last drink this AM, and likelihood of detox on the unit I have made the decision to recommend she go to [facility] to detox while under close supervision. The patient is very agreeable and understands. I have called ahead to let them know she is on her way to them and to expect her. They are aware at the facility and the patient has been reassured. 02/16/2025 Other Discussed sleep hygiene and caffeine intake with encouragement to limit electronic devices an hour before bed and to limit caffeine after 3:00pm. Exercise benefits for mood and health discussed. Psychoeducation regarding psychiatric illness provided. Client was educated about risks and benefits of medication, alternatives to medication, off label uses of medication, suicidal ideation with SSRIs, self-administratio n and compliance with medication along with how to safely store medication. Verbal informed consent obtained. Client agrees to return sooner if symptoms worsen or if suicidal or homicidal ideations occur. Client has the phone number to the 24-hour crisis line at [facility]. Questions addressed. Client verbalized understanding of all [...] risk versus benefit gone over. Also discussed halfway planning for soberity and whether MAT services would be beneficial. Client is interested in this. She is confused as to what medication she would like to trial however otherwise naltrexone would have been started at this appt. Client encouraged to ask staff for MAT initial appt to set up services. 02/17/2025 Other Discussed medication side effects, adverse effects, risks, benefits, as well as interactions. Encouraged non-use of alcohol. Has Vivitrol alert bracelet, necklace, and wallet card. Recommended participation in recovery groups and/or counseling services. May contact office with questions or concerns. 02/08/2025 Other Clinician met w ith client to assess needs for residential services. Clinician gathered information regarding historical presentation of mental health and substance use symptoms including withdrawal, HIV Risk assessment, psychiatric hospitalization history and presenting concern. Clinician conducted PHQ9 and CSSRS assessments as well as social drivers of health screening for the purposes of identifying additional service needs. Plan Of Treatment Pending Test Test Name Order Date Drug Analysis, Unknown, Qual 09/27/2015 Buprenorphine 09/15/2015 Next Appt Details Provider Name:Kai alarcon, 03/02/2025 09:40:00 AM, [address] [place], [address], Insurance Providers Payer Name Payer Address Payer Phone Subscriber Number Group Number Insured Name Patient Relationship to Insured Coverage Start Date Coverage End Date [employer] [address] [place] [address] [id number] Lu Christy Self - patient is the insured 5 [employer] [address] [place] [address] [id number] Lu Christy Self - patient is the insured 5 [employer] [address] [place] [address] [id number] Lu Christy Self - patient is the insured 2 Medications Administered Medication Instructions Date of Administration Dosage Notes Vivitrol 02/21/2016 380 mg exp December 2017 Manufact by Eddie rivera. Sample used Vivitrol 03/20/2016 380 mg Exp-01/03/2018 Auto Emissions Technician-Pablo[employer]orepj Client tolerated injection well. Vivitrol 04/17/2016 380 mg Exp December 2017 Manufact by Eddie rivera. Vivitrol 05/29/2016 380 mg Exp 10/2018 Man ufact by Eddie rivera. Vivitrol 02/17/2025 380 mg Medical (General) History Medical History History ICD Code seizures from head trauma 2007 gastric ulcer kidney stones 2005 UTI depression alcohol use disorder Surgical History Surgery Date(Month/Year) appendectomy 1993 cystectomy 2001 & 2002 kidney stents 2005 Double mastectomy 2021 Hospitalization History Reason Date(Month/Year) childbirth Feb 2017 seizure 2014 kidney stent placement 2006
[2025-02-17 17:20] VITALS: BP 103/67; PULSE 86; RESP 16; TEMP 36.6; O2SAT 97
--- OUTSIDE RECORDS SUMMARY | 2025-02-17 19:09 | XMS_ITS | Encounter Summary ---
Author Organization [facility] Address [address] [place] [address] Phone Care Team Providers Care Assistant Vice President Name Role Phone Jack Dukes MD Unavailable [phone] Arianne Alarcon APRN, DEPARTMENT OF SOCIOLOGY CHAIR Primary Care Provider [phone] Lito Chatterjee MD Unavailable [phone] Gustabo Falk MD Unavailable [phone] Amrit Goddard MD Unavailable Phan Grant MD Unavailable [phone] Reason for Visit * Reason Comments Medication Refill Encounter Details Date Type Department Care Team (Late st Contact Info) Description 12/06/2020 Refill [facility] - Neurology - [place] [address] [place] [address] Jack Dukes MD [address] [place] [address] Medication Refill Social History Tobacco Use Types Packs/Day Years Used Date Smoking Tobacco: Never Smokeless Tobacco: Never Alcohol Use Standard Drinks/Week Comments No 0 (1 standard drink = 0.6 oz pur e alcohol) Comments No Sex and Gender Information Value Date Recorded Sex Assigned at Not on file Legal Sex Female 2:52 AM PROGRAM MANAGER ENVIRONMENTAL PLANNING Gender Identity Not on file Sexual Orientation Not on file 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 Not on file Not on [...] st Contact Info) Description 08/25/2025 2:00 PM PROGRAM MANAGER ENVIRONMENTAL PLANNING Office Visit [facility] Oncology Services [address] [place] [address] Phan Grant MD [address] [place] [address] Discharge Disposition: Discharged to home or Selfcare documented as of this encounter Visit Diagnoses Diagnosis 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) documented in this encounter Care Teams Assistant Vice President Relationship Specialty Start Date End Date Arianne Alarcon APRN, CNP [address] [place] [address] PCP - General Family Medicine 08/29/16 Jack Dukes MD [address] [place] [address] Consulting Physician Neurology 08/21/16 Lito Chatterjee MD [address] [place] [address] Consulting Physician General Surgery 04/27/19 Gustabo Falk MD [address] [place] [address] Consulting Physician Radiation Oncology 04/27/19 Amrit Goddard MD [address] [address] Consulting Physician General Surgery 06/08/19 Phan Grant MD [address] [place] [address] Consulting Physician Medical Oncology 02/16/20 documented as of this encounter
--- OUTSIDE RECORDS SUMMARY | 2025-02-17 19:09 | XMS_ITS | Encounter Summary ---
Author Organization [facility] Address [address] [facility] [place] [address] Phone Care Team Providers Care Linen Tech Name Role Phone Jack Dukes MD Unavailable [phone] Arianne Alarcon APRN, CNP Primary Care Provider [phone] Lito Chatterjee MD Unavailable Gustabo Falk MD Unavailable [phone] Amrit Goddard MD Unavailable Phan Grant MD Unavailable [phone] Reason for Visit * Reason Comments Medication Refill Encounter Details Date Type Department Care Team (Late st Contact Info) Description 06/09/2020 [facility] [address] [place] [address] Phan Grant MD [address] [place] [address] Medication Refill Social History Tobacco Use Types Packs/Day Years Used Date Smoking Tobacco: Never Smokeless Tobacco: Never Alcohol Use Standard Drinks/Week Comments No 0 (1 standard drink = 0.6 oz pur e alcohol) Comments No Sex and Gender Information Value Date Recorded Sex Assigned at Not on file Legal Sex Female 2:52 AM COUNTER POCKET TRIMMER Gender Identity Not on file Sexual Orientation Not on file 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 No / Unsure 06/08/2020 9:05 AM COUNTER POCKET TRIMMER documented as of this encounter Miscellaneous Notes * Telephone Encounter - Tanya Hylton APN, CNP - 06/12/2020 1:04 PM COUNTER POCKET TRIMMER Filled 2 weeks ago. TER POCKET TRIMMER * Telephone Encounter - Maria Del Carmen Brasher RN - 06/12/2020 1:03 PM CST Request denied; last filled 05/22/20 with 3 refills. TER POCKET TRIMMER * Telephone Encounter - Maria Del Carmen Brasher RN - 06/12/2020 11:44 AM CST Okay to refill Lorazepam for Lu? Last fill 2 weeks ago. TER POCKET TRIMMER documented in this encounter Plan of Treatment Upcoming Encounters Date Type Department Care Team (Late st Contact Info) Description 08/25/2025 2:00 PM COUNTER POCKET TRIMMER Office Visit [facility] Oncology Services [address] [place] [address] Phan Grant MD [address] [place] [address] Discharge Disposition: Discharged to home or Selfcare documented as of this encounter Visit Diagnoses Not on filedocumented in this encounter Care Teams Linen Tech Relationship Specialty Start Date End Date Arianne Alarcon APRN, ROMEL [address] [place] [address] PCP - General Family Medicine 08/29/16 Jack Dukes MD [address] [place] [address] Consulting Physician Neurology 08/21/16 Lito Chatterjee MD [address] [place] [address] Consulting Physician General Surgery 04/27/19 Gustabo Falk MD [address] [place] [address] Consulting Physician Radiation Oncology 04/27/19 Amrit Goddard MD [address] [address] Consulting Physician General Surgery 06/08/19 Phan Grant MD [address] [place] [address] Consulting Physician Medical Oncology 02/16/20 documented as of this encounter
--- OUTSIDE RECORDS SUMMARY | 2025-02-17 19:09 | XMS_ITS | Continuity of Care Document ---
Author Organization [facility] Address [address] [place] [address] [place] [address] Phone Care Team Providers Care Bag Checker Name Role Phone Massimo Herring MD Unavailable [...] Copied on Encounter [facility], [address] [place], [id number], tel:[phone] [facility] Medicine No Information [address] [employer] [facility] [place], [id number] , [place]. tel:[phone] Referring Provider: Massimo Herring, [address] [place], [place], [id number]. tel:[phone] OFFICE/OUTPAT IENT VISIT, [facility], [address] [place], [place], [id number], tel:[phone] [facility] Seizure (chief complaint) depression (chief complaint) ADD (chief complaint) back pain (chief complaint) Epilepsy, unspecified, without mention of intractable epilepsyLumbago [address] [place], [place], [id number] , . tel:[phone] Referring Provider: Massimo Herring, [address] [place], [place], [address]. tel:[phone] Family History Family Member Type Diagnosis Age At Onset No Information Payers Payer name Insurance type Covered green party ID Authoriza tion(s) No Information Social [...]
--- OUTSIDE RECORDS SUMMARY | 2025-02-17 19:09 | XMS_ITS | Encounter Summary ---
Author Organization [facility] Address [address] [place] [address] Phone Care Team Providers Care Inspector Watch Assembly Name Role Phone Jack Dukes MD Unavailable [phone] Arianne Alarcon APRN, BOOTH SUPERVISOR Primary Care Provider [phone] Lito Chatterjee MD Unavailable [phone] Gustabo Falk MD Unavailable [phone] Amrit Goddard MD Unavailable Phan Grant MD Unavailable [phone] Reason for Visit * Reason Comments Medication Refill Encounter Details Date Type Department Care Team (Late st Contact Info) Description 01/17/2022 Refill [facility] - [facility] [address] [place] [address] Jack Dukes MD [address] [place] [address] Medication Refill Social History Tobacco Use Types Packs/Day Years Used Date Smoking Tobacco: Never Smokeless Tobacco: Never Alcohol Use Standard Drinks/Week Comments No 0 (1 standard drink = 0.6 oz pur e alcohol) Comments No Sex and Gender Information Value Date Recorded Sex Assigned at Not on file Legal Sex Female 2:52 AM MERCHANDISE ADJUSTMENT CLERK Gender Identity Not on file Sexual Orientation Not on file 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) documented in this encounter Care Teams Inspector Watch Assembly Relationship Specialty Start Date End Date Arianne Alarcon APRN, CNP [address] [place] [address] PCP - General Family Medicine 08/29/16 Jack Dukes MD [address] [place] [address] Consulting Physician Neurology 08/21/16 Lito Chatterjee MD [address] [place] [address] Consulting Physician General Surgery 04/27/19 Gustabo Falk MD [address] [place], [place] [address] Consulting Physician Radiation Oncology 04/27/19 Amrit Goddard MD [address] [address] Consulting Physician General Surgery 06/08/19 Phan Grant MD [address] [place] [address] Consulting Physician Medical Oncology 02/16/20 documented as of this encounter
--- OUTSIDE RECORDS SUMMARY | 2025-02-17 19:09 | XMS_ITS | Encounter Summary ---
Author Organization [facility] Address [address] [place] [address] Phone Care Team Providers Care Internal Combustion Engineer Name Role Phone Jack Dukes MD Unavailable [phone] Arianne Alarcon APRN, ENGINEERING GROUP LEADER Primary Care Provider [phone] Lito Chatterjee MD Unavailable [phone] Gustabo Falk MD Unavailable [phone] Amrit Goddard MD Unavailable Phan Grant MD Unavailable [phone] Reason for Visit * Reason Comments Medication Refill Encounter Details Date Type Department Care Team (Late st Contact Info) Description 05/30/2021 Refill [facility] - Neurology [facility] [address] [place] [address] Jack Dukes MD [address] [place] [address] Medication Refill Social History Tobacco Use Types Packs/Day Years Used Date Smoking Tobacco: Never Smokeless Tobacco: Never Alcohol Use Standard Drinks/Week Comments No 0 (1 standard drink = 0.6 oz pur e alcohol) Comments No Sex and Gender Information Value Date Recorded Sex Assigned at Not on file Legal Sex Female 2:52 AM DIRECTOR COMPLIANCE Gender Identity Not on file Sexual Orientation Not on file 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) documented in this encounter Care Teams Internal Combustion Engineer Relationship Specialty Start Date End Date Arianne Alarcon APRN, CNP [address] [place] [address] PCP - General Family Medicine 08/29/16 Jack Dukes MD [address] [place] [address] Consulting Physician Neurology 08/21/16 Lito Chatterjee MD [address] [place] [address] Consulting Physician General Surgery 04/27/19 Gustabo Falk MD [address] [place] [address] Consulting Physician Radiation Oncology 04/27/19 Amrit Goddard MD [address] [address] Consulting Physician General Surgery 06/08/19 Phan Grant MD [address] [place] [address] Consulting Physician Medical Oncology 02/16/20 documented as of this encounter
--- OUTSIDE RECORDS SUMMARY | 2025-02-17 19:09 | XMS_ITS | Encounter Summary ---
Author Organization [facility] Address [address] [place] [address] Phone Care Team Providers Care Tattoo Technician Name Role Phone Jack Dukes MD Unavailable [phone] Arianne Alarcon APRN, LACE WINDER Primary Care Provider [phone] Lito Chatterjee MD Unavailable [phone] Gustabo Falk MD Unavailable [phone] Amrit Goddard MD Unavailable Phan Grant MD Unavailable [phone] Reason for Visit * Reason Comments Medication Refill Encounter Details Date Type Department Care Team (Late st Contact Info) Description 03/22/2022 Refill [facility] [address] [place] [address] Jack Dukes MD [address] [place] [address] Medication Refill Social History Tobacco Use Types Packs/Day Years Used Date Smoking Tobacco: Never Smokeless Tobacco: Never Alcohol Use Standard Drinks/Week Comments No 0 (1 standard drink = 0.6 oz pur e alcohol) Comments No Sex and Gender Information Value Date Recorded Sex Assigned at Not on file Legal Sex Female 2:52 AM PHLEBOTOMIST LAB ASSISTANT Gender Identity Not on file Sexual Orientation Not on file 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 file Not on file Not on file documented as of this encounter Plan of Treatment Upcoming Encounters Date Type Department Care Team (Late st Contact Info) Description 08/25/2025 2:00 PM PHLEBOTOMIST LAB ASSISTANT [facility] Oncology Services [address] [place] [address] Phan Grant MD [address] [place] [address] Discharge Disposition: Discharged to home or Selfcare documented as of this encounter Visit Diagnoses Diagnosis Seizures (HCC) Other convulsions documented in this encounter Care Teams Tattoo Technician Relationship Specialty Start Date End Date Arianne Alarcon APRN, CNP [address] [place] [address] PCP - General Family Medicine 08/29/16 Jack Dukes MD [address] [place] [address] Consulting Physician Neurology 08/21/16 Lito Chatterjee MD [address] [place] [address] Consulting Physician General Surgery 04/27/19 Gustabo Falk MD [address] [place] [address] Consulting Physician Radiation Oncology 04/27/19 Amrit Goddard MD [address] [address] Consulting Physician General Surgery 06/08/19 Phan Grant MD [address] [place] [address] Consulting Physician Medical Oncology 02/16/20 documented as of this encounter
--- OUTSIDE RECORDS SUMMARY | 2025-02-17 19:09 | XMS_ITS | Encounter Summary ---
Author Organization [facility] Address [address] [place] [address] Phone Care Team Providers Care Curtain Cleaner Name Role Phone Jack Dukes MD Unavailable [phone] Arianne Alarcon APRN, HAIR DRESSER Primary Care Provider [phone] Lito Chatterjee MD Unavailable [phone] Gustabo Falk MD Unavailable [phone] Amrit Goddard MD Unavailable Phan Grant MD Unavailable [phone] Reason for Visit * Reason Comments Medication Refill Encounter Details Date Type Department Care Team (Late st Contact Info) Description 04/25/2022 Refill [facility] [address] [place] [address] Jack Dukes MD [address] [place] [address] Medication Refill Social History Tobacco Use Types Packs/Day Years Used Date Smoking Tobacco: Never Smokeless Tobacco: Never Alcohol Use Standard Drinks/Week Comments No 0 (1 standard drink = 0.6 oz pur e alcohol) Comments No Sex and Gender Information Value Date Recorded Sex Assigned at Not on file Legal Sex Female 2:52 AM ELECTRICAL TRANSMISSION ENGINEER Gender Identity Not on file Sexual Orientation Not on file 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 Not on file Not on file Not on file documented as of this encounter Plan of Treatment Upcoming Encounters Date Type Department Care Team (Late st Contact Info) Description 08/25/2025 2:00 PM ELECTRICAL TRANSMISSION ENGINEER Office [facility] Oncology Services [address] [place] [address] Phan Grant MD [address] [place] [address] Discharge Disposition: Discharged to home or Selfcare documented as of this encounter Visit Diagnoses Diagnosis Seizures (HCC) Other convulsions documented in this encounter Care Teams Curtain Cleaner Relationship Specialty Start Date End Date Arianne Alarcon APRN, CNP [address] [place] [address] PCP - General Family Medicine 08/29/16 Jack Dukes MD [address] [place] [address] Consulting Physician Neurology 08/21/16 Lito Chatterjee MD [address] [place] [address] Consulting Physician General Surgery 04/27/19 Gustabo Falk MD [address] [place] [address] Consulting Physician Radiation Oncology 04/27/19 Amrit Goddard MD [address] [address] Consulting Physician General Surgery 06/08/19 Phan Grant MD [address] [place] [address] Consulting Physician Medical Oncology 02/16/20 documented as of this encounter
--- OUTSIDE RECORDS SUMMARY | 2025-02-17 19:09 | XMS_ITS | Encounter Summary ---
Author Organization [facility] Address [address] [place] [address] Phone Care Team Providers Care Informatics Application Analyst Name Role Phone Jack Dukes MD Unavailable [phone] Arianne Alarcon APRN, MARKETING SYSTEMS MANAGER Primary Care Provider [phone] Lito Chatterjee MD Unavailable [phone] Gustabo Falk MD Unavailable [phone] Amrit Goddard MD Unavailable Phan Grant MD Unavailable [phone] Reason for Visit * Reason Comments Medication Refill Encounter Details Date Type Department Care Team (Late st Contact Info) Description 05/24/2022 Refill [facility] - Neu[facility] [address] [place] [address] Jack Dukes MD [address] [place] [address] Medication Refill Social History Tobacco Use Types Packs/Day Years Used Date Smoking Tobacco: Never Smokeless Tobacco: Never Alcohol Use Standard Drinks/Week Comments No 0 (1 standard drink = 0.6 oz pur e alcohol) Comments No Sex and Gender Information Value Date Recorded Sex Assigned at Not on file Legal Sex Female 2:52 AM HEALTHCARE MARKET CONSULTANT Gender Identity Not on file Sexual Orientation Not on file 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 Oncology Services [address] [place] [address] Phan Grant MD [address] [place] [address] Discharge Disposition: Discharged to home or Selfcare documented as of this encounter Visit Diagnoses Diagnosis Seizures (HCC) Other convulsions documented in this encounter Care Teams Informatics Application Analyst Relationship Specialty Start Date End Date Arianne Alarcon APRN, CNP [address] [place] [address] PCP - General Family Medicine 08/29/16 Jack Dukes MD [address] [place] [address] Consulting Physician Neurology 08/21/16 Lito Chatterjee MD [address] [place] [address] Consulting Physician General Surgery 04/27/19 Gustabo Falk MD [address] [place] [address] Consulting Physician Radiation Oncology 04/27/19 Amrit Goddard MD [address] [address] Consulting Physician General Surgery 06/08/19 Phan Grant MD [address] [place] [address] Consulting Physician Medical Oncology 02/16/20 documented as of this encounter
--- OUTSIDE RECORDS SUMMARY | 2025-02-17 19:09 | XMS_ITS | Encounter Summary ---
Author Organization [facility] Address [address] [place] [address] Phone Care Team Providers Care Lone Lead Lineman Name Role Phone Jack Dukes MD Unavailable [phone] Arianne Alarcon APRN, CNP Primary Care Provider [phone] Lito Chatterjee MD Unavailable [phone] Gustabo Falk MD Unavailable [phone] Amrit Goddard MD Unavailable Phan Grant MD Unavailable [phone] Reason for Visit * Reason Comments Medication Refill Encounter Details Date Type Department Care Team (Late st Contact Info) Description 06/20/2020 [facility] [address] [place] [address] Phan Grant MD [address] [place] [address] Medication Refill Social History Tobacco Use Types Packs/Day Years Used Date Smoking Tobacco: Never Smokeless Tobacco: Never Alcohol Use Standard Drinks/Week Comments No 0 (1 standard drink = 0.6 oz pur e alcohol) Comments No Sex and Gender Information Value Date Recorded Sex Assigned at Not on file Legal Sex Female 2:52 AM CLIENT RESOLUTION SPECIALIST Gender Identity Not on file Sexual Orientation Not on file 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 No / Unsure 06/08/2020 9:05 AM CLIENT RESOLUTION SPECIALIST documented as of this encounter Miscellaneous Notes * Telephone Encounter - Nikki Martin RN - 06/21/2020 2:16 PM CLIENT RESOLUTION SPECIALIST Lorazepam called into pharmacy previous refill not received by pharmacy NT RESOLUTION SPECIALIST documented in this encounter Plan of Treatment Upcoming Encounters Date Type Department Care Team (Late st Contact Info) Description 08/25/2025 2:00 PM CLIENT RESOLUTION SPECIALIST [facility] [address] [place] [address] Phan Grant MD [address] [place] [address] Discharge Disposition: Discharged to home or Selfcare documented as of this encounter Visit Diagnoses Not on filedocumented in this encounter Care Teams Lone Lead Lineman Relationship Specialty Start Date End Date Arianne Alarcon APRN, CNP [address] [place] [address] PCP - General Family Medicine 08/29/16 Jack Dukes MD [address] [place] [address] Consulting Physician Neurology 08/21/16 Lito Chatterjee MD [address] [place] [address] Consulting Physician General Surgery 04/27/19 Gustabo Falk MD [address] [address] Consulting Physician Radiation Oncology 04/27/19 Amrit Goddard MD [address] [address] Consulting Physician General Surgery 06/08/19 Phan Grant MD [address] [place] [address] Consulting Physician Medical Oncology 02/16/20 documented as of this encounter
--- OUTSIDE RECORDS SUMMARY | 2025-02-17 19:09 | XMS_ITS | Encounter Summary ---
Author Organization [facility] Address [address] [facility] [place] [address] Phone Care Team Providers Care Mill Operator Head Name Role Phone Jack Dukes MD Unavailable [phone] Arianne Alarcon APRN, CNP Primary Care Provider [phone] Lito Chatterjee MD Unavailable [phone] Gustabo Falk MD Unavailable [phone] Amrit Goddard MD Unavailable Phan Grant MD Unavailable [phone] Reason for Visit * Reason Comments Medication Refill Encounter Details Date Type Department Care Team (Late st Contact Info) Description 05/22/2020 [facility] [address] [place] [address] Phan Grant MD [address] [place] [address] Medication Refill Social History Tobacco Use Types Packs/Day Years Used Date Smoking Tobacco: Never Smokeless Tobacco: Never Alcohol Use Standard Drinks/Week Comments No 0 (1 standard drink = 0.6 oz pur e alcohol) Comments No Sex and Gender Information Value Date Recorded Sex Assigned at Not on file Legal Sex Female 2:52 AM TELEPHONE INSTRUMENT SUPERVISOR Gender Identity Not on file Sexual Orientation Not on file 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 No / Unsure 05/22/2020 3:41 PM TELEPHONE INSTRUMENT SUPERVISOR documented as of this encounter Miscellaneous Notes * Telephone Encounter - Tanya Hylton APN, CNP - 05/26/2020 2:17 PM TELEPHONE INSTRUMENT SUPERVISOR Refill Lorazepam 0.5 mg tabs, 1 tab BID as needed. # 60 tabs, 3 refills. PHONE INSTRUMENT SUPERVISOR documented in this encounter Plan of Treatment Upcoming Encounters Date Type Department Care Team (Late st Contact Info) Description 08/25/2025 2:00 PM TELEPHONE INSTRUMENT SUPERVISOR [facility] [address] [place] [address] Phan Grant MD [address] [place] [address] Discharge Disposition: Discharged to home or Selfcare documented as of this encounter Visit Diagnoses Not on filedocumented in this encounter Care Teams Mill Operator Head Relationship Specialty Start Date End Date Arianne Alarcon APRN, CNP [address] [place] [address] PCP - General Family Medicine 08/29/16 Jack Dukes MD [address] [place] [address] Consulting Physician Neurology 08/21/16 Lito Chatterjee MD [address] [place] [address] Consulting Physician General Surgery 04/27/19 Gustabo Falk MD [address] [address] Consulting Physician Radiation Oncology 04/27/19 Amrit Goddard MD #[address] [address] Consulting Physician General Surgery 06/08/19 Phan Grant MD [address] [place] [address] Consulting Physician Medical Oncology 02/16/20 documented as of this encounter
--- OUTSIDE RECORDS SUMMARY | 2025-02-17 19:09 | XMS_ITS | Encounter Summary ---
Author Organization [facility] Address [address] [place] [address] Phone Care Team Providers Care Rn Dialysis Name Role Phone Jack Dukes MD Unavailable [phone] Arianne Alarcon APRN, TENANT SELECTOR Primary Care Provider [phone] Lito Chatterjee MD Unavailable [phone] Gustabo Falk MD Unavailable [phone] Amrit Goddard MD Unavailable Phan Grant MD Unavailable [phone] Reason for Visit * Reason Comments Medication Refill Encounter Details Date Type Department Care Team (Late st Contact Info) Description 02/22/2020 Refill [facility] - Neurology - [place] [address] [place] [address] Jack Dukes MD [address]2 [place] [address] Medication Refill Social History Tobacco Use Types Packs/Day Years Used Date Smoking Tobacco: Never Smokeless Tobacco: Never Alcohol Use Standard Drinks/Week Comments No 0 (1 standard drink = 0.6 oz pur e alcohol) Comments No Sex and Gender Information Value Date Recorded Sex Assigned at Not on file Legal Sex Female 2:52 AM ORACLE WEBCENTER CONSULTANT Gender Identity Not on file Sexual Orientation Not on file 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) documented in this encounter Care Teams Rn Dialysis Relationship Specialty Start Date End Date Arianne Alarcon APRN, CNP [address] [place] [address] PCP - General Family Medicine 08/29/16 Jack Dukes MD [address] [place] [address] Consulting Physician Neurology 08/21/16 Lito Chatterjee MD [address] [place] [address] Consulting Physician General Surgery 04/27/19 Gustabo Falk MD [address] [facility] [place] [address] Consulting Physician Radiation Oncology 04/27/19 Amrit Goddard MD [address] [address] Consulting Physician General Surgery 06/08/19 Phan Grant MD [address] [place] [address] Consulting Physician Medical Oncology 02/16/20 documented as of this encounter
--- OUTSIDE RECORDS SUMMARY | 2025-02-17 19:09 | XMS_ITS | Encounter Summary ---
Author Organization [facility] Address [address] [place] [address] Phone Care Team Providers Care Assembler Show Motor Name Role Phone Jack Dukes MD Unavailable [phone] Arianne Alarcon APRN, TURKEY BONER Primary Care Provider [phone] Lito Chatterjee MD Unavailable [phone] Gustabo Falk MD Unavailable [phone] Amrit Goddard MD Unavailable Phan Grant MD Unavailable [phone] Reason for Visit * Reason Comments Medication Refill Encounter Details Date Type Department Care Team (Late st Contact Info) Description 05/29/2020 Refill [facility] Medical Group - Neurology - [place] [address] [place] [address] Jack Dukes MD [address] [place] [address] Medication Refill Social History Tobacco Use Types Packs/Day Years Used Date Smoking Tobacco: Never Smokeless Tobacco: Never Alcohol Use Standard Drinks/Week Comments No 0 (1 standard drink = 0.6 oz pur e alcohol) Comments No Sex and Gender Information Value Date Recorded Sex Assigned at Not on file Legal Sex Female 2:52 AM ASSET PROTECTION LEAD Gender Identity Not on file Sexual Orientation Not on file 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) documented in this encounter Care Teams Assembler Show Motor Relationship Specialty Start Date End Date Arianne Alarcon APRN, CNP [address] [place] [address] PCP - General Family Medicine 08/29/16 Jack Dukes MD [address] [place] [address] Consulting Physician Neurology 08/21/16 Lito Chatterjee MD [address] [place] [address] Consulting Physician General Surgery 04/27/19 Gustabo Falk MD [address] [place] [address] Consulting Physician Radiation Oncology 04/27/19 Amrit Goddard MD [address] [address] Consulting Physician General Surgery 06/08/19 Phan Grant MD [address] [place] [address] Consulting Physician Medical Oncology 02/16/20 documented as of this encounter
--- OUTSIDE RECORDS SUMMARY | 2025-02-17 19:09 | XMS_ITS | Encounter Summary ---
Author Organization [facility] Address [address] [place] [address] Phone Care Team Providers Care Political Theory Professor Name Role Phone Jack Dukes MD Unavailable [phone] Arianne Alarcon APRN, FNPS Primary Care Provider [phone] Lito Chatterjee MD Unavailable [phone] Gustabo Falk MD Unavailable [phone] Amrit Goddard MD Unavailable Phan Grant MD Unavailable [phone] Reason for Visit * Reason Comments Medication Refill Encounter Details Date Type Department Care Team (Late st Contact Info) Description 06/26/2022 Refill [facility] - Neurology [facility] [address] [place] [address] Jack Dukes MD [address] [place] [address] Medication Refill Social History Tobacco Use Types Packs/Day Years Used Date Smoking Tobacco: Never Smokeless Tobacco: Never Alcohol Use Standard Drinks/Week Comments No 0 (1 standard drink = 0.6 oz pur e alcohol) Comments No Sex and Gender Information Value Date Recorded Sex Assigned at Not on file Legal Sex Female 2:52 AM GOLD MARKER Gender Identity Not on file Sexual Orientation Not on file 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 Not on file Not on file Not on file documented as of this encounter Plan of Treatment Upcoming Encounters Date Type Department Care Team (Late st Contact Info) Description 08/25/2025 2:00 PM GOLD MARKER Office Visit [facility] Oncology Services [address] [place] [address] Phan Grant MD [address] [place] [address] Discharge Disposition: Discharged to home or Selfcare documented as of this encounter Visit Diagnoses Diagnosis 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) documented in this encounter Care Teams Political Theory Professor Relationship Specialty Start Date End Date Arianne Alarcon APRN, CNP [address] [place] [address] PCP - General Family Medicine 08/29/16 Jack Dukes MD [address] [place] [address] Consulting Physician Neurology 08/21/16 Lito Chatterjee MD [address] [place] [address] Consulting Physician General Surgery 04/27/19 Gustabo Falk MD [address] [place] [address] Consulting Physician Radiation Oncology 04/27/19 Amrit Goddard MD [address] [address] [address] Consulting Physician General Surgery 06/08/19 Phan Grant MD [address] [place] [address] Consulting Physician Medical Oncology 02/16/20 documented as of this encounter
--- OUTSIDE RECORDS SUMMARY | 2025-02-17 19:09 | XMS_ITS | Encounter Summary ---
Author Organization [facility] Address [address] [place] [address] Phone Care Team Providers Care Supervisor Fleshing Name Role Phone Jack Dukes MD Unavailable [phone] Arianne Alarcon APRN, ELECTRICAL TECHNICIAN Primary Care Provider [phone] Lito Chatterjee MD Unavailable [phone] Gustabo Falk MD Unavailable [phone] Amrit Goddard MD Unavailable Phan Grant MD Unavailable [phone] Reason for Visit * Reason Comments Medication Refill Encounter Details Date Type Department Care Team (Late st Contact Info) Description 12/08/2021 Refill [facility] - Neurology [facility] [address] [place] [address] Jack Dukes MD [address] [place] [address] Medication Refill Social History Tobacco Use Types Packs/Day Years Used Date Smoking Tobacco: Never Smokeless Tobacco: Never Alcohol Use Standard Drinks/Week Comments No 0 (1 standard drink = 0.6 oz pur e alcohol) Comments No Sex and Gender Information Value Date Recorded Sex Assigned at Not on file Legal Sex Female 2:52 AM INSURANCE SALES PROFESSIONAL Gender Identity Not on file Sexual Orientation Not on file 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 file Not on file [...] st Contact Info) Description 08/25/2025 2:00 PM INSURANCE SALES PROFESSIONAL Office Visit [facility] - Cancer Center Oncology Services [address] [place] [address] Phan Grant MD [address] [place] [address] Discharge Disposition: Discharged to home or Selfcare documented as of this encounter Visit Diagnoses Diagnosis Seizures (HCC) Other convulsions documented in this encounter Care Teams Supervisor Fleshing Relationship Specialty Start Date End Date Arianne Alarcon APRN, CNP [address] [place] [address] PCP - General Family Medicine 08/29/16 Jack Dukes MD [address] [place] [address] Consulting Physician Neurology 08/21/16 Lito Chatterjee MD [address] [place] [address] Consulting Physician General Surgery 04/27/19 Gustabo Falk MD [address] [facility] [place] [address] Consulting Physician Radiation Oncology 04/27/19 Amrit Goddard MD [address] [address] Consulting Physician General Surgery 06/08/19 Phan Grant MD [address] [place] [address] Consulting Physician Medical Oncology 02/16/20 documented as of this encounter
--- OUTSIDE RECORDS SUMMARY | 2025-02-17 19:09 | XMS_ITS | Encounter Summary ---
Author Organization [facility] Address [address] [place] [address] Phone Care Team Providers Care Client Services Administrator Name Role Phone Jakc Dukes MD Unavailable [phone] Arianne Alarcon APRN, CHANGE MANAGEMENT Primary Care Provider [phone] Lito Chatterjee MD Unavailable [phone] Gustabo Falk MD Unavailable [phone] Amrit Goddard MD Unavailable Phan Grant MD Unavailable [phone] Reason for Visit * Reason Comments Medication Refill Encounter Details Date Type Department Care Team (Late st Contact Info) Description 11/17/2020 Refill [facility] Medical Group - Neurology - [place] [address] [place] [address] Jack Dukes MD [address] [place] [address] Medication Refill Social History Tobacco Use Types Packs/Day Years Used Date Smoking Tobacco: Never Smokeless Tobacco: Never Alcohol Use Standard Drinks/Week Comments No 0 (1 standard drink = 0.6 oz pur e alcohol) Comments No Sex and Gender Information Value Date Recorded Sex Assigned at Not on file Legal Sex Female 2:52 AM RIVET MACHINE OPERATOR Gender Identity Not on file Sexual Orientation Not on file 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 file Not on [...] st Contact Info) Description 08/25/2025 2:00 PM RIVET MACHINE OPERATOR Office Visit [facility] - Cancer Center Oncology Services [address] [place] [address] Phan Grant MD [address] [place] [address] Discharge Disposition: Discharged to home or Selfcare documented as of this encounter Visit Diagnoses Diagnosis Seizures (HCC) Other convulsions documented in this encounter Care Teams Client Services Administrator Relationship Specialty Start Date End Date Arianne Alarcon APRN, CNP [address] [place] [address] PCP - General Family Medicine 08/29/16 Jack Dukes MD [address] [place] [address] Consulting Physician Neurology 08/21/16 Lito Chatterjee MD [address] [place] [address] Consulting Physician General Surgery 04/27/19 Gustabo Falk MD [address] [facility] [address] Consulting Physician Radiation Oncology 04/27/19 Amrit Goddard MD [address] [address] Consulting Physician General Surgery 06/08/19 Phan Grant MD [address] [place] [address] Consulting Physician Medical Oncology 02/16/20 documented as of this encounter
--- OUTSIDE RECORDS SUMMARY | 2025-02-17 19:10 | XMS_ITS | Clinical Summary ---
Author Organization [facility] Address [address] [facility] [place] [address] Care Team Providers Care Yard Pilot Name Role Phone Alarcon, Arianne FLORES Primary Care Provider [phone] Source Comments [facility],non-owned Affiliates and Associated Physician Practices is amultiple site organization consisting of ambulatory clinics and hospital sitesin [place], [place], [place] and [place]. This disclosure is being madepursuant to the Care Everywhere program and may not contain all information available regarding this patient. Last updated 18.[facility] Allergies Active Allergy Reactions Criticality Noted [...] PM CDT Legal Sex Female 6:31 AM BEAM DEPARTMENT SUPERVISOR Gender Identity Female 05/02/2022 12:48 PM CDT [...] - 26 mg/dL 03/07/2022 5:42 AM CDT [facility] Creatinine 0.70 0.56 - 0.96 mg/dL 03/07/2022 5:42 AM T [facility] Sodium 145 136 - 145 mmol/L 03/07/2022 5:42 AM T [facility] Potassium 3.9 3.5 - 4.5 mmol/L 03/07/2022 5:42 AM [facility] Chloride 112(H) 98 - 107 mmol/L 03/07/2022 5:42 AM [facility] CO2 22 22 - 29 mmol/L 03/07/2022 5:42 AM [facility] Glucose 131(H) 70 - 115 mg/dL 03/07/2022 5:42 AM [facility] Calcium 8.3(L) 8.4 - 10.2 mg/dL 03/07/2022 5:42 AM [facility] Anion Gap 15 8 - 18 03/07/2022 5:42 AM [facility] BUN/Creatinine Ratio 14 7 - 23 03/07/2022 5:42 AM [facility] Osmolality Calculated 301(H) 270 - 300 mOsm/kg 03/07/2022 5:42 AM [facility] eGFR by CKD-EPI >90 >=90 mL/min/1.7 3 m2 03/07/2022 5:42 AM [facility] Blood BLOOD SPECIMEN / Unknown Venipuncture / Unknown 03/07/2022 5:08 AM T 03/07/2022 5:14 AM [facility] Feroz Salazar MD LAB - CHEMISTRY ORDERABLES Final Result [facility] [address] [place] [address], [facility] [phone] from Last 3 Months or Most Recently Relevant to Health Maintenance [place] [address] [facility] Care Teams Yard Pilot Relationship Specialty Start Date End Date Arianne Alarcon APRN-LITHOPONE MILL WORKER [address] [place] [address] PCP - General 10/08/19
--- OUTSIDE RECORDS SUMMARY | 2025-02-17 19:10 | XMS_ITS | Encounter Summary ---
Author Organization [facility] Address [address] [place] [address] Phone Care Team Providers Care Gasoline Power Shovel Operator Name Role Phone Jack Dukes MD Unavailable [phone] Arianne Alarcon APRN, DUMPER BAILER OPERATOR Primary Care Provider [phone] Lito Chatterjee MD Unavailable [phone] Gustabo Falk MD Unavailable [phone] Amrit Goddard MD Unavailable Phan Grant MD Unavailable [phone] Reason for Visit * Reason Comments Medication Refill Encounter Details Date Type Department Care Team (Late st Contact Info) Description 09/10/2023 Refill [facility] - Neurology [facility] [address] [place] [address] Jack Dukes MD [address] [place] [address] Medication Refill Social History Tobacco Use Types Packs/Day Years Used Date Smoking Tobacco: Never Smokeless Tobacco: Never Alcohol Use Standard Drinks/Week Comments No 0 (1 standard drink = 0.6 oz pur e alcohol) Comments No Sex and Gender Information Value Date Recorded Sex Assigned at Not on file Legal Sex Female 2:52 AM CORK SORTER Gender Identity Not on file Sexual Orientation Not on file 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 Not on file Not on [...] 90 days and meeting all other requirements SORTER documented in this encounter Plan of Treatment Upcoming Encounters Date Type Department Care Team (Late st Contact Info) Description 08/25/2025 2:00 PM CORK SORTER Office Visit [facility] - [facility] Center Oncology Services [address] [place] [address] Phan Grant MD [address] [place] [address] Discharge Disposition: Discharged to home or Selfcare documented as of this encounter Visit Diagnoses Diagnosis Seizures (HCC) Other convulsions documented in this encounter Care Teams Gasoline Power Shovel Operator Relationship Specialty Start Date End Date Arianne Alarcon APRN, CNP [address] [place] [address] PCP - General Family Medicine 08/29/16 Jack Dukes MD [address] [place] [address] Consulting Physician Neurology 08/21/16 Lito Chatterjee MD [address] [place] [address] Consulting Physician General Surgery 04/27/19 Gustabo Falk MD [address] [place] [address] Consulting Physician Radiation Oncology 04/27/19 Amrit Goddard MD [address] [address] Consulting Physician General Surgery 06/08/19 Phan Grant MD [address] [place] [address] Consulting Physician Medical Oncology 02/16/20 documented as of this encounter
--- OUTSIDE RECORDS SUMMARY | 2025-02-17 19:10 | XMS_ITS | Clinical Summary ---
Author Organization [facility] Address [address] [place] [address] Care Team Providers Care Hemmer Chainstitch Name Role Phone Unavailable Primary Care Provider [...] Comments Blood Pressure 102/70 06/15/2015 9:24 AM DIRECTOR OF HEAD START Pulse 78 06/15/2015 9:24 AM DIRECTOR OF HEAD START Temperature - - Respiratory Rate - - Oxygen Saturation - - Inhaled Oxygen Concentration - - Weight 68 kg (150 lb) 06/15/2015 9:24 AM DIRECTOR OF HEAD START Height 167.6 cm (5' 6) 06/15/2015 9:24 AM DIRECTOR OF HEAD START Body Mass Index 24.21 06/15/2015 9:24 AM DIRECTOR OF HEAD START Plan of Treatment Health Maintenance Due Date [...]
--- OUTSIDE RECORDS SUMMARY | 2025-02-17 19:10 | XMS_ITS | Encounter Summary ---
Author Organization [facility] Address [address] [place] [address] Phone Care Team Providers Care Inspector Experimental Assembly Name Role Phone Jack Dukes MD Unavailable [phone] Arianne Alarcon APRN, PHLEBOTOMY TECHNICIAN Primary Care Provider [phone] Lito Chatterjee MD Unavailable [phone] Gustabo Falk MD Unavailable [phone] Amrit Goddard MD Unavailable Phan Grant MD Unavailable [phone] Reason for Visit * Reason Comments Medication Refill Encounter Details Date Type Department Care Team (Late st Contact Info) Description 10/29/2024 Refill [facility] Group - Neurology [facility] [address] [place] [address] Jack Dukes MD [address] [place] [address] Medication Refill Social History Tobacco Use Types Packs/Day Years Used Date Smoking Tobacco: Never Smokeless Tobacco: Never Alcohol Use Standard Drinks/Week Comments No 0 (1 standard drink = 0.6 oz pur e alcohol) Comments No Sex and Gender Information Value Date Recorded Sex Assigned at Not on file Legal Sex Female 2:52 AM PRINT TRAFFIC MANAGER Gender Identity Not on file Sexual Orientation Not on file 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 Not on file Not on file Not on file documented as of this encounter Plan of Treatment Upcoming Encounters Date Type Department Care Team (Late st Contact Info) Description 08/25/2025 2:00 PM PRINT TRAFFIC MANAGER Office Visit [facility] Oncology Services [address] [place] [address] Phan Grant MD [address] [place] [address] Discharge Disposition: Discharged to home or Selfcare documented as of this encounter Visit Diagnoses Diagnosis 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) documented in this encounter Care Teams Inspector Experimental Assembly Relationship Specialty Start Date End Date Arianne Alarcon APRN, CNP [address] [place] [address] PCP - General Family Medicine 08/29/16 Jack Dukes MD [address] [place] [address] Consulting Physician Neurology 08/21/16 Lito Chatterjee MD [address] [place] [address] Consulting Physician General Surgery 04/27/19 Gustabo Falk MD [address] [place] [address] Consulting Physician Radiation Oncology 04/27/19 Amrit Goddard MD [address] [place] [address] [address] Consulting Physician General Surgery 06/08/19 Phan Grant MD [address] [place] [address] Consulting Physician Medical Oncology 02/16/20 documented as of this encounter
--- OUTSIDE RECORDS SUMMARY | 2025-02-17 19:10 | XMS_ITS | Clinical Summary ---
Author Organization [facility] Address [address] [place] [address] Care Team Providers Care Route Driver Salesperson Name Role Phone Arianne Alarcon NP Primary Care Provider [phone] Derrick Walker MD Unavailable [phone] Allergies Active Allergy Reactions Criticality Noted [...] (07/31/2020): Added automatically from request for surgery [id number] History of breast cancer 02/10/2020 Overview (02/10/2020): Added automatically from request for surgery [id number] Anxiety 02/08/2020 Sensory neuropathy 02/08/2020 Nodule of [...] Care Team Description 01/31/2025 Documentation [facility] Case Management [address] [place] [address] Shanice Serna 01/25/2025 10:58 PM CDT - 01/28/2025 12:56 PM CDT Hospital Encounter [facility] [address] [place] [address] Sol Yates MD Lun, Yu, MD Smith, Thomas Hamilton, MD Alcohol withdrawal syndrome without complication (HCC) (Primary Dx) Discharge Disposition: Discharge to an IP Rehab facility 01/23/2025 Documentation [facility] [address] [place], [place] [phone] Sheryl Montanez 01/22/2025 AMH Enrollment [facility] [address] [place], [place] [phone] Sheryl Montanez 01/21/2025 Documentation [facility] [address] [place] [phone] Ana Nair 01/20/2025 9:33 PM CDT - 01/23/2025 5:11 PM CDT Hospital Encounter [facility] [address] [place] [address] Gabo Santos MD Sargsyan, Narine, MD Alcohol withdrawal syndrome with complication (HCC) (Primary Dx) Discharge Disposition: Left Against Medical Advice 01/20/2025 Documentation [facility] [address] [place], [place] [phone] Ana Nair from Last 3 Months Immunizations [...] PORTACATH PLACEMENT Left MASTECTOMY 12/24/2019 Bilateral TISSUE INSPECTOR PLATING PLACEMENT 12/24/2019 Bilateral Removal Left Port a [...] drink = 0.6 oz pur e alcohol) [facility] Utilities Answer Date Recorded In the past 12 months has [employer], gas, oil, or water [employer] threatened to shut off services in your home? No 01/26/2025 Social Connection and Isolation Panel Answer Date Recorded In a typical week, how many times do you talk on the phone with family, friends, or neighbors? Three times a week 01/26/2025 How often do you get togethe r with friends or relatives? Twice a week 01/26/2025 How often do you attend chur or baptist services? More than 4 times per year 01/26/2025 Do you belong to any clubs o r organizations such as taoist groups, unions, fraternal or athletic groups, or [...] any time in the past 12 m [facility], were you homeless or living in a half-way (including now)? No 01/26/2025 Personal Safety Answer Date Recorded Have you ever been in or are you currently in a harmful physical or emotional relationship or is someone making you feel afraid or unsafe? Denies 01/26/2025 Comments No Sex and Gender Information Value Date Recorded Sex Assigned at Not on file Legal Sex Female 12:33 AM DOUBLE SURFACE OPERATOR Gender Identity Female 06/06/2021 8:34 AM DOUBLE SURFACE OPERATOR Sexual Orientation Straight 06/06/2021 8: 34 AM DOUBLE SURFACE OPERATOR Obstetrics History Last Filed Vital Signs Vital [...] this topic Medical Devices Implanted Type Area Sales Representative Aircraft Device Identifier Shelf Expiration Date Model / Serial / Lot [employer] 68-120 Natrelle 9cm Style 68mp Smooth Anterior Diaphragm Valve P3cm Latex Free - [id number] - [id number] Implanted:Qty: 1 on 03/16/2021 by Derrick Walker MD at [facility] Breast Left: Breast [employer] 04/09/2024 68-120 / [id number] / [employer] [id number] Alloderm Select 07r32yd Allograft Regenerative Freeze Dried - [id number] - [id number] Implanted:Qty: 1 on 12/24/2019 by Derrick Walker MD at [facility] Left: Breast [employer] 11/03/2020 [id number] / [id number] / [employer] [id number] Alloderm Select 21u83ft Allograft Regenerative Freeze Dried - [id number] - [id number] Implanted:Qty: 1 on 12/24/2019 by Derrick Walker MD at [facility] Right: Breast [employer] 10/04/2020 [id number] / [id number] / Synovis Qraved Allian [id number] Prairie Microvascular 2.5mm Ring Pin Protective Cover Jaw Assembly Latex Free - [id number] Implanted:Qty: 1 on 04/06/2020 by Derrick Walker MD at [facility] Right: Breast [employer] Qra[employer] Allian 10/13/2024 [id number] / / Synovis Checkr [id number] Prairie Microvascular 2.5mm Ring Pin Protective Cover Jaw Assembly Latex Free - [id number] Implanted:Qty: 1 on 04/06/2020 by Derrick Walker MD at [facility] Left: Breast [employer] Micro Shoozy Allian 10/23/2024 [id number] / / [id number] Aller[employer] 68-120 Natrelle 9cm Style 68mp Smooth Anterior Diaphragm Valve P3cm Latex Free - [id number] - [id number] Implanted:Qty: 1 on 03/16/2021 by Derrick Walker MD at [facility] Left: Breast [employer] 08/30/2023 68-120 / [id number] / Explanted Type Area Sales Representative Aircraft Device Identifier Shelf Expiration Date Model / Serial / Lot Sientra Inc [id number] Allox2 15x13.8cm Texture Integrate Port Breast P6.4-7.9cm Full - [id number] Implanted:Qty: 1 on 12/24/2019 by Derrick Walker MD at [facility] Explanted:Qty: 1 on 04/06/2020 by Derrick Walker MD at [facility] Breast Left: Breast [employer] 11/03/2024 [id number] / / Sientra Inc Allox2-[id number] Allox2 15x13.8cm Texture Integrate Port Breast P6.4-7.9cm Full - [id number] Implanted:Qty: 1 on 12/24/2019 by Derrick Walker MD at [facility] Explanted:Qty: 1 on 04/06/2020 by Derrick Walker MD at [facility] Right: Breast Sientra [...] W MARY ANNE Routine 05/11/2015 11:49 AM DOUBLE SURFACE OPERATOR from Last 3 Months or Most Recently Relevant to Health Maintenance Results * eGFR (01/26/2025 5:32 AM CDT) Pathologist [facility] eGFR 73 >=60 mL/min/1. 73 [...] us Sol Yates MD LAB BLOOD ORDERABLES [facility] Result [facility] [address] [facility] Department [place] [address] * (ABNORMAL) Differential, auto (01/26/2025 5:32 AM CDT) [facility] Neutrophil abs 2.32 1.50 - 6.50 K/cumm [...] MD LAB BLOOD ORDERABLES Fi nal Result [facility] [address] [facility] [facility] Department [place] [address] * CBC with auto differential [...] ORDERABLES Fi nal Result Performing Organization Address City/[facility]/ZIP Co de Phone Number [address] [place] [address] * Magnesium (01/26/2025 5:32 AM CDT) [facility] Magnesium 2.2 1.4 - 2.5 mg/dL Blood 01/26/2025 5:32 AM CDT 01/26/2025 5:46 AM CDT Sol Yates MD LAB BLOOD ORDERABLES Fi nal Result Performing Organization Address City/[facility]/ZIP Co de Phone Number [address] [place] [address] * Comprehensive metabolic panel (01/26/2025 5:32 AM CDT) Pathologist [facility] Sodium 140 135 - 145 [...] ORDERABLES Fi nal Result Performing Organization Address City/State/[facility] Co de Phone Number [facility] [facility] Department [place] [address] * POCT hCG, urine (01/26/2025 1:00 AM CDT) Pathologist [facility] HCG, ur, POC Negative Negative Lot Number [id number] QC Backgroud Clear Acceptable QC Control Line Acceptable Urine 01/26/2025 1:00 AM CDT Sol Yatse MD POINT OF CARE TEST ORDMei CHASE Final Result * (ABNORMAL) Urinalysis reflex to microscopic and culture Urine (01/25/2025 10:03 PM CDT) Color, ur Straw Yellow Clarity, ur Clear Clear [facility] Specific gravity, ur 1.007 1.003 - 1.030 [facility] pH, urine 5.5 [facility] Comment: Interpretive Data U rine pH is affected by diet, medications, systemic acid-base disturbances, and renal tubular function. pH may affect urinary stone formation. For example, urine pH below 6.0 may help reduce the tendency for calcium phosphate stones and pH greater than 6.0 may reduce the tendency for uric acid stone formation. Source: [facility] Current Interpretive Data was last revised on [...] us Sol Yates MD LAB MICROBIOLOGY - [facility] ORDERABLES Final Result [facility] [address] [facility] Department [place] [address] * (ABNORMAL) Drugs of Abuse Screen, Urine without Confirmation (01/25/2025 10:03 PM CDT) Pathologist [facility] Amphetamine, ur Not Detected CutOff [...] MD LAB URINE ORDERABLES nal Result [facility] [facility] Department [place] [address] * (ABNORMAL) Urinalysis, microscopic only (01/25/2025 10:03 PM CDT) WBC, ur 0-5 0 - 5 /HPF RBC, ur 0-2 0 - 2 /HPF [facility] Epithelial cells, squamous, ur 1-5 0 - 5 /HPF [facility] Bacteria, ur Trace(A) [facility] Mucous, ur Present(A) [facility] Culture Reflex Comment Reflex conditions for urine culture (WBC >10) not met. [facility] Urine 01/25/2025 10:0 3 PM CDT 01/25/2025 10:06 PM CDT Sol Yates MD LAB URINE ORDERABLES Fi nal Result [facility] [address] Department [place] [address] * ECG 12 lead (01/25/2025 8:07 PM CDT) Ventricular Rate EKG/Min 108 BPM [facility] Atrial Rate 108 BPM [facility] FL-Interval (MSEC) 168 ms [facility] QRS-Interval (MSEC) 68 ms [facility] QT-Interval (MSEC) 342 ms [facility] QTc 458 ms [facility] P [place] 32 degrees [facility] R [place] 5 degrees [facility] T [place] 32 degrees [facility] Diagnosis Sinus tachycardia Possible Inferior infarct , age undetermined Abnormal ECG No previous ECGs available Confirmed by INOCENCIA DUQUE M.D. ([id number]) on 01/26/2025 10:43:48 PM [facility] 01/25/2025 8:07 PM CDT 01/26/2025 10:43 PM CDT Sol Yates MD ECG ORDERABLES Final R esult Performing Organization Address City/[facility] Co de Phone Number [facility] * eGFR (01/25/2025 7:59 PM CDT) eGFR [...] MD LAB BLOOD ORDERABLES Fi nal Result [facility] [address] [facility] Department [place] [address] * Differential, auto (01/25/2025 7:59 PM CDT) [...] ORDERABLES Fi nal Result Performing Organization Address City/[facility]/ZIP Co de Phone Number [address] [place] [place] [address] * Thyroid Function [place] (01/25/2025 7:59 PM CDT) Pathologist [facility] TSH 1.73 0.30 - 4.20 mcIUnit/mL Blood 01/25/2025 7:59 PM CDT 01/25/2025 8:04 PM CDT Sol Yates MD LAB BLOOD ORDERABLES Fi nal Result Performing Organization Address [facility] Co de Phone Number [address] [address] * (ABNORMAL) CBC with auto differential (01/25/2025 7:59 PM CDT) Pathologist [facility] WBC 8.39 3.80 - 9.90 [...] ORDERABLES Fi nal Result Performing Organization Address City/[facility]/ZIP Co de Phone Number [address] [place] [place] [address] * (ABNORMAL) Ethanol (01/25/2025 7:59 PM CDT) Ethanol 14(H) <=10 mg/dL Comment: Interpretive Data Legal limit of intoxication > or = 80 mg/dL Levels > or = 400 mg/dL are potentially TOXIC. Current interpretive data was last revised on 2018. Blood 01/25/2025 7:59 PM CDT 01/25/2025 8:04 PM CDT Sol Yates MD LAB BLOOD ORDERABLES Fi nal Result Performing Organization Address City/[facility] Co de Phone Number [address] [place] [address] * (ABNORMAL) Comprehensive metabolic panel (01/25/2025 7:59 [...] LAB BLOOD ORDERABLES Fi nal Result [facility] [address] [facility] Department [place] [address] * eGFR (01/22/2025 6:09 AM CDT) eGFR [...] Final Resul t [facility] ([place]) [address] [facility] Department [place] [address] * (ABNORMAL) CBC without differential (01/22/2025 6:09 [...] Final Resul t [facility] ([place] [address] [facility] Department [place] [address] * Comprehensive metabolic panel (01/22/2025 6:09 AM [...] Final Resul t [facility] ([place]) 1 [facility] [place] [address] * Urinalysis reflex to microscopic and culture [...] tendency for uric acid stone formation. Source: [facility] [employer] Current Interpretive Data was last revised on [...] STUART Final Result [facility] ([place]) [address] [facility] Department [place] [address] * (ABNORMAL) Drugs of Abuse Screen, Urine [...] URINE ORDERABLES Final Resul t [facility] ([place]) [address] [place] [address] * Sepsis Lactate w/ Reflex (01/21/2025 12:41 AM CDT) Sepsis Lactate 1.5 0.7 - 2.0 mmol/L Blood 01/21/2025 12:4 1 AM CDT 01/21/2025 12:41 AM CDT [facility] ORDERABLES Final Resul t Performing Organization Address City/[facility] Co de Phone Number [facility] ([place]) [address] [place] [address] * eGFR (01/21/2025 12:41 AM CDT) eGFR [...] BLOOD ORDERABLES Final Resul t [facility] ([place]) [address] [facility] Department [place] [address] * Differential, auto (01/21/2025 12:41 AM CDT) Neutrophil abs 3.53 1.50 - 6.50 K/cumm Imm gran abs 0.01 0.00 - 0.10 K/cumm [facility] ([place]) Lymphocyte abs 3.13 0.80 - 3.30 K/cumm [facility] ([place]) Monocyte abs 0.38 0.20 - 0.80 K/cumm [facility] ([place]) Eosinophil abs 0.00 0.00 - 0.50 K/cumm [facility] ([place]) Basophil abs 0.04 0.00 - 0.10 K/cumm [facility] ([place]) Neutrophil pct 49.8 % [facility] ([place]) Comment: Interpretive Data Percent cell count reference ranges are not reported, since discordance with absolute values may lead to misinterpretation of CBC data. Current Interpretive Data was last revised on 2017. Imm gran pct 0.1 % [facility] ([place]) Comment: Interpretive Data Percent cell count reference ranges are not reported, since discordance with absolute values may lead to misinterpretation of CBC data. Current Interpretive Data was last revised on 2017. Lymphocyte pct 44.1 % [facility] ([place]) Comment: Interpretive Data Percent cell count reference ranges are not reported, since discordance with absolute values may lead to misinterpretation of CBC data. Current Interpretive Data was last revised on 2017. Monocyte pct 5.4 % [facility] ([place]) Comment: Interpretive Data Percent cell count reference ranges are not reported, since discordance with absolute values may lead to misinterpretation of CBC data. Current Interpretive Data was last revised on 2017. Eosinophil pct 0.0 % [facility] ([place]) Comment: Interpretive Data Percent cell count reference [...] Final Resul t [facility] ([place]) [address] [facility] Department [place] [address] * (ABNORMAL) CBC with auto differential (01/21/2025 [...] CDT 01/21/2025 12:41 AM CDT Kamal Stan CONSULTING BUSINESS DEVELOPER LAB BLOOD ORDERABLES Final Resul t [facility] ([place] [address] [facility] Department [place] [address] * Comprehensive metabolic panel (01/21/2025 12:41 AM [...] ORDERABLES Final Resul t Performing Organization Address City/[facility] Co de Phone Number [facility] ([place] [address] [facility] [place] [place] [address] * (ABNORMAL) Ethanol (01/20/2025 7:05 PM CDT) [...] ORDERABLES Final Resu lt Performing Organization Address [facility] Co de Phone Number [facility] ([place] [address] [facility] [place] [address] * DIAGNOSTIC MAMMOGRAM BILATERAL W MARY ANNE (05/11/2015 11:49 AM DOUBLE SURFACE OPERATOR) Anatomical Region Laterality Modality Breast Bilateral Mammography 05/11/2015 11:4 9 AM DOUBLE SURFACE OPERATOR Narrative 05/11/2015 11:11 PM DOUBLE SURFACE OPERATOR SCREENING MAMM W MARY ANNE BI Acc#: [id number] Screening Mamm Bi Acc#: [id number] DATE OF EXAM: May 11 2015 Performed [...] Fax: -- Attending Fax: -- Attending ID: [id number] Requesting ID: [id number] Report To 1 ID: [id number] Report To 1 Name: ROD DUQUE Report To 1 FAX: -- NextGen Order #: Procedure Note Provider, MD Manuelito - 10/31/2016 SCREENING MAMM W MARY ANNE BI Acc#: [id number] Screening Mamm Bi Acc#: [id number] DATE OF EXAM: May 11 2015 Performed [...] Fax: -- Attending Fax: -- Attending ID: [id number] Requesting ID: [id number] Report To 1 ID: [id number] Report To 1 Name: ROD DUQUE Report To 1 FAX: -- NextGen Order #: Historical Provider MD KUHN MAMMO PROCEDURES Margarita l Result from Last 3 Months or Most Recently Relevant to Health Maintenance [facility] Advance Directives For more information, please contact: [phone] * Full Code (Latest Code Status on [...] 8:35 PM 04/10/2020 6:28 PM Care Teams Route Driver Salesperson Relationship Specialty Start Date End Date Arianne Alarcon NP [address] [place] [address] PCP - General 04/24/17 Derrick Walker MD [address] [place] [address] Consulting Physician Plastic Surgery 12/25/19
--- OUTSIDE RECORDS SUMMARY | 2025-02-17 19:10 | XMS_ITS ---
Author Organization [facility] Address [address] [place] [address] Phone Care Team Providers Care Facilities Painter Name Role Phone Jack Dukes MD Unavailable [phone] Arianne Alarcon APRN, SHELTER ADVOCATE Primary Care Provider [phone] Lito Chatterjee MD Unavailable [phone] Gustabo Falk MD Unavailable [phone] Amrit Goddard MD Unavailable Phan Grant MD Unavailable [phone] Active Problems * This document contains information [...] from 04/27/2019:Stage IIB(cT2, cN0, cM0, G3, ER+, LA-, HER2-) - Signed by Gustabo Falk MD on 04/28/2019 Pathologic stage from 04/27/2019:Stage IIB(pT2, pN1mi(sn), cM0, G3, ER+, LA-, HER2-) - Unsigned Premenopausal patient 04/22/2019 Seizures [...]
--- OUTSIDE RECORDS SUMMARY | 2025-02-17 19:10 | XMS_ITS ---
Author Organization [facility] Address [address] [place] [address] Care Team Providers Care Home Office Representative Name Role Phone Arianne Alarcon NP Primary Care Provider [phone] Derrick Walker MD Unavailable [phone] Active Problems Problem Noted Date Diagnosed Date Alcohol withdrawal syndrome without complication 01/26/2025 Alcohol withdrawal syndrome with complication Alcohol withdrawal syndrome, uncomplicated 08/04 Hx of breast cancer 07/31/2020 Overview (07/31/2020): Added automatically from request for surgery [id number] History of breast cancer 02/10/2020 Overview (02/10/2020): Added automatically from request for surgery [id number] Anxiety 02/08/2020 Sensory neuropathy 02/08/2020 Nodule of [...]
--- OUTSIDE RECORDS SUMMARY | 2025-02-17 19:10 | XMS_ITS | Encounter Summary ---
Author Organization [facility] Address [address] [place] [address] Phone Care Team Providers Care Grader Green Meat Name Role Phone Jack Dukes MD Unavailable [phone] Arianne Alarcon APRN, SOLAR PHOTOVOLTAIC CREW LEAD Primary Care Provider [phone] Lito Chatterjee MD Unavailable [phone] Gustabo Falk MD Unavailable [phone] Amrit Goddard MD Unavailable Phan Grant MD Unavailable [phone] Reason for Visit * Reason Comments Medication Refill Encounter Details Date Type Department Care Team (Late st Contact Info) Description 11/05/2024 Refill 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 Not on file Not on file Not on file documented as of this encounter Plan of Treatment Upcoming Encounters Date Type Department Care Team (Late st Contact Info) Description 08/25/2025 2:00 PM NETWORK OPERATIONS ANALYST Office Visit [facility] On[facility] [address] [place] [id number] Phan Grant MD [address] [place] [address] Discharge Disposition: Discharged to home or Selfcare documented as of this encounter Visit Diagnoses Diagnosis 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) documented in this encounter Care Teams Grader Green Meat Relationship Specialty Start Date End Date Arianne Alarcon APRN, CNP [address] [place] [address] PCP - General Family Medicine 08/29/16 Jack Dukes MD [address] [place] [address] Consulting Physician Neurology 08/21/16 Lito Chatterjee MD [address] [place] [address] Consulting Physician General Surgery 04/27/19 Gustabo Falk MD [address] [place] [address] Consulting Physician Radiation Oncology 04/27/19 Amrit Goddard MD [address] [place] [facility] [address] [address] Consulting Physician General Surgery 06/08/19 Phan Grant MD [address] [place] [address] Consulting Physician Medical Oncology 02/16/20 documented as of this encounter
--- OUTSIDE RECORDS SUMMARY | 2025-02-17 19:10 | XMS_ITS | Encounter Summary ---
Author Organization [facility] Address [address] [place] [address] Phone Care Team Providers Care Air Route Controller Name Role Phone Jack Dukes MD Unavailable Arianne Alarcon APRN, RAMP MANAGER Primary Care Provider [phone] Lito Chatterjee MD Unavailable Gustabo Falk MD Unavailable Amrit Goddard MD Unavailable Phan Grant MD Unavailable [phone] Encounter Details Date Type Department Care Team (Latest Contact Info) Description 08/26/2024 Transcribe Orders [facility] Laboratory Services [address] [place] [address] Arianne Alarcon APRN, RAMP MANAGER [address] [place] [address] Mixed hyperlipidemia (Primary Dx); Alcohol [...] on file Legal Sex Female 2:52 AM LANDSCAPING CREW LEADER Gender Identity Not on file Sexual Orientation Not on file 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 Not on file Not on file Not on file documented as of this encounter Plan of Treatment Upcoming Encounters Date Type Department Care Team (Late st Contact Info) Description 08/25/2025 2:00 PM LANDSCAPING CREW LEADER Office Visit [facility] On[facility] [address] [place] [address] Phan Grant MD [address] [place] [address] Discharge Disposition: Discharged to home or Selfcare [...] (10/29/2024 12:00 AM CDT) Blood Arianne Alarcon SUPERVISOR CUTTING AND SEWING ROOM, RAMP MANAGER CHEMISTRY ORDERABLES Margarita l Result SCAN * COMPLETE BLOOD COUNT (CBC) WITH DIFF (10/29/2024 12:00 AM CDT) Blood Arianne Alarcon SUPERVISOR CUTTING AND SEWING ROOM, RAMP MANAGER HEMATOLOGY ORDERABLES Fin al Result Performing Organization Address City/[facility]/ZIP Co de Phone Number SCAN * LIPID PANEL (10/29/2024 12:00 AM CDT) CHOLESTEROL 182 SCAN HDL CHOLESTEROL 49 SCAN LDL 101 SCAN Blood Arianne Alarcon APRN, CNP CHEMISTRY ORDERABLES Margarita l Result SCAN documented in this encounter Visit Diagnoses Diagnosis Mixed hyperlipidemia- Primary Alcohol abuse, uncomplicated Gastroesophageal reflux disease without esophagitis Esophageal reflux documented in this encounter Care Teams Air Route Controller Relationship Specialty Start Date End Date Arianne Alarcon APRN, RAMP MANAGER [address] [place] [address] PCP - General Family Medicine 08/29/16 Jack Dukes MD [address] [place] [id number] Consulting Physician Neurology 08/21/16 Lito Chatterjee MD [address] [place] [address] Consulting Physician General Surgery 04/27/19 Gustabo Falk MD [address] [place] [address] Consulting Physician Radiation Oncology 04/27/19 Amrit Goddard MD [address] [address] Consulting Physician General Surgery 06/08/19 Phan Grant MD [address] [place] [address] Consulting Physician Medical Oncology 02/16/20 documented as of this encounter
--- OUTSIDE RECORDS SUMMARY | 2025-02-17 19:10 | XMS_ITS | Clinical Summary ---
Author Organization [facility] Address [address] [place] [address] Phone Care Team Providers Care Linen Tech Name Role Phone Jack Dukes MD Unavailable [phone] Arianne Alarcon APRN, SUPERVISOR LIQUID YEAST Primary Care Provider [phone] Lito Chatterjee MD Unavailable [phone] Gustabo Falk MD Unavailable [phone] Amrit Goddard MD Unavailable Phan Grant MD Unavailable [phone] Allergies Active Allergy Reactions Criticality Noted Date [...] from 04/27/2019:Stage IIB(cT2, cN0, cM0, G3, ER+, WV-, HER2-) - Signed by Gustabo Falk MD on 04/28/2019 Pathologic stage from 04/27/2019:Stage IIB(pT2, pN1mi(sn), cM0, G3, ER+, WV-, HER2-) - Unsigned Premenopausal patient 04/22/2019 Seizures [...] on file Legal Sex Female 2:52 AM BARREL WASHER MACHINE Gender Identity Not on file Sexual Orientation Not on file 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 Not on file Not on file Not on file Last Filed Vital Signs Vital Sign Reading Time Taken Comments Blood Pressure 131/87 08/26/2024 1:50 PM BARREL WASHER MACHINE Pulse 92 08/26/2024 1:50 PM BARREL WASHER MACHINE Temperature 36.6 C (97.9 F) 08/26/2024 1:50 PM BARREL WASHER MACHINE Respiratory Rate 18 08/26/2024 1:50 PM BARREL WASHER MACHINE Oxygen Saturation 98% 08/26/2024 1:50 PM BARREL WASHER MACHINE Inhaled Oxygen Concentration - - Weight 67.3 kg (148 lb 4.8 oz) 08/26/2024 1:50 P M BARREL WASHER MACHINE Height 165.1 cm (5' 5) 07/09/2024 8:05 PM BARREL WASHER MACHINE Body Mass Index 24.68 07/09/2024 8:05 PM BARREL WASHER MACHINE Plan of Treatment Upcoming Encounters Date Type Department Care Team (Late st Contact Info) Description 08/25/2025 2:00 PM BARREL WASHER MACHINE [facility] [address] [place] [phone] Phan Grant MD [address] [place] [address] Discharge Disposition: Discharged to home or Selfcare [...] this topic Medical Devices Implanted Type Area Appeals Reviewer Veteran Device Identifier Shelf Expiration Date Model / Serial / Lot Port Implantable Infusion Powerport Mri Airguard Chronoflex 8fr 1 Lumen Attachable Cath Intermediate - [id number] Implanted:Qty: 1 on 05/11/2019 by Lito Chatterjee MD at [facility] IMPLANT Left: Chest BARD ACCESS SYSTEMS 11/03/2020 [id number] / [id number] / [id number] Procedures Procedure Name Priority Date/Time Associated Diagnosis [...] copy. Current study was also evaluated with Quinyx AB version 7.2. CLINICAL: Diagnostic study. 6 month follow up post lumpectomy right breast. Patient states feeling a palpable lump that is marked on imaging for approximately 3 months. COMPARISONS: Comparison is made to exam dated: 03/15/2019 [facility]. BREAST TISSUE:There are scattered fibroglandular densities [...] signed by: Mya Patel M.D. ll/:10/12/2019 15:03:41 Laundry Presser: Lisa Avelar (R)), [facility] letter sent: Birad 3 Followup Reading location: [facility] OVERALL STUDY BIRADS: 3 Probably benign Procedure [...] copy. Current study was also evaluated with Quinyx AB version 7.2. CLINICAL: Diagnostic study. 6 month follow up post lumpectomy right breast. Patient states feeling a palpable lump that is marked on imaging for approximately 3 months. COMPARISONS: Comparison is made to exam dated: 03/15/2019 [facility]. BREAST TISSUE:There are scattered fibroglandular densities [...] signed by: Mya Patel M.D. ll/:10/12/2019 15:03:41 Laundry Presser: Lisa Eaton)(M), [facility] letter sent: Birad 3 Followup Reading location: [facility] OVERALL STUDY BIRADS: 3 Probably benign us Lito Chatterjee MD IMG MAMMO ORDERABLES Final Result from Last 3 Months or Most Recently Relevant to Health Maintenance Insurance [place] Advance Directives Documents on File Type Date Recorded Patient Gambling Counsellor Expl anation Power of Windows 7 Deployment Lead for Health Care 05/27/2019 11:53 AM POA-HC 05/27/19 Advance Care Planning Discussion 05/27/2019 11:33 AM ACP DISCUSSION RECOR D 05/27/19 Care Teams Linen Tech Relationship Specialty Start Date End Date Arianne Alarcon APRN, CNP [address] [place] [address] PCP - General Family Medicine 08/29/16 Jack Dukes MD [address] [place] [address] Consulting Physician Neurology 08/21/16 Lito Chatterjee MD [address] [place] [address] Consulting Physician General Surgery 04/27/19 Gustabo Falk MD [address] [place], [place] [id number] Consulting Physician Radiation Oncology 04/27/19 Amrit Goddard MD [address] [place] [address] Consulting Physician General Surgery 06/08/19 Phan Grant MD [address] [place] [address] Consulting Physician Medical Oncology 02/16/20
--- OUTSIDE RECORDS SUMMARY | 2025-02-17 19:10 | XMS_ITS | Encounter Summary ---
Author Organization [facility] Address [address] [place] [address] Phone Care Team Providers Care Senior Controls Technician Name Role Phone Jack Dukes MD Unavailable [phone] Arianne Alarcon APRN, SCHOLASTIC APTITUDE TEST GRADER Primary Care Provider [phone] Lito Chatterjee MD Unavailable [phone] Gustabo Falk MD Unavailable [phone] Amrit Goddard MD Unavailable Phan Grant MD Unavailable [phone] Reason for Visit * Reason Comments Medication Refill Encounter Details Date Type Department Care Team (Late st Contact Info) Description 01/01/2023 Refill [facility] - Neurology [facility] [address] [place] [address] Jack Dukes MD [address] [place] [address] Medication Refill Social History Tobacco Use Types Packs/Day Years Used Date Smoking Tobacco: Never Smokeless Tobacco: Never Alcohol Use Standard Drinks/Week Comments No 0 (1 standard drink = 0.6 oz pur e alcohol) Comments No Sex and Gender Information Value Date Recorded Sex Assigned at Not on file Legal Sex Female 2:52 AM DIGITAL DATA ANALYST Gender Identity Not on file Sexual Orientation Not on file 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 Showing future appointments within next 90 days and meeting all other requirements documented in this encounter Plan of Treatment Upcoming Encounters Date Type Department Care Team (Late st Contact Info) Description 08/25/2025 2:00 PM DIGITAL DATA ANALYST [facility] [address] [place] [address] Phan Grant MD [address] [place] [address] Discharge Disposition: Discharged to home or Selfcare documented as of this encounter Visit Diagnoses Diagnosis Seizures (HCC) Other convulsions documented in this encounter Care Teams Senior Controls Technician Relationship Specialty Start Date End Date Arianne Alarcon APRN, ROMEL [address] [place] [address] PCP - General Family Medicine 08/29/16 Jack Dukes MD [address] [place] [address] Consulting Physician Neurology 08/21/16 Lito Chatterjee MD [address] [place] [address] Consulting Physician General Surgery 04/27/19 Gustabo Falk MD [address] [place] [address] Consulting Physician Radiation Oncology 04/27/19 Amrit Goddard MD [address]2 [facility] [place] [address] [address] Consulting Physician General Surgery 06/08/19 Phan Grant MD [address] [place] [address] Consulting Physician Medical Oncology 02/16/20 documented as of this encounter
--- OUTSIDE RECORDS SUMMARY | 2025-02-17 19:10 | XMS_ITS | Encounter Summary ---
Author Organization [facility] Address [address] [place] [address] Phone Care Team Providers Care Claims Adjustor Name Role Phone Jack Dukes MD Unavailable [phone] Arianne Alarcon APRN, HOME INSPECTOR Primary Care Provider [phone] Lito Chatterjee MD Unavailable [phone] Gustabo Falk MD Unavailable [phone] Amrit Goddard MD Unavailable Phan Grant MD Unavailable [phone] Reason for Visit * Reason Comments Medication Refill Encounter Details Date Type Department Care Team (Late st Contact Info) Description 02/17/2023 Refill [facility] - Neu[facility] [address] [place] [address] Jack Dukes MD [address] [place] [address] Medication Refill Social History Tobacco Use Types Packs/Day Years Used Date Smoking Tobacco: Never Smokeless Tobacco: Never Alcohol Use Standard Drinks/Week Comments No 0 (1 standard drink = 0.6 oz pur e alcohol) Comments No Sex and Gender Information Value Date Recorded Sex Assigned at Not on file Legal Sex Female 2:52 AM CLINICAL MEDICAL ASSISTANT Gender Identity Not on file Sexual Orientation Not on file 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) documented in this encounter Care Teams Claims Adjustor Relationship Specialty Start Date End Date Arianne Alarcon APRN, ROMEL [address] [place] [address] PCP - General Family Medicine 08/29/16 Jack Dukes MD [address] [place] [address] Consulting Physician Neurology 08/21/16 Lito Chatterjee MD [address] [place] [address] Consulting Physician General Surgery 04/27/19 Gustabo Falk MD [address] [place] [address] Consulting Physician Radiation Oncology 04/27/19 Amrit Goddard MD [address] [address] Consulting Physician General Surgery 06/08/19 Phan Grant MD [address] [place] [address] Consulting Physician Medical Oncology 02/16/20 documented as of this encounter
--- OUTSIDE RECORDS SUMMARY | 2025-02-17 19:10 | XMS_ITS | Encounter Summary ---
Author Organization [facility] Address [address] [place] [address] Phone Care Team Providers Care Circulation Crew Leader Name Role Phone Jack Dukes MD Unavailable [phone] Arianne Alarcon APRN, EFFICIENCY ENGINEER Primary Care Provider [phone] Lito Chatterjee MD Unavailable [phone] Gustabo Falk MD Unavailable [phone] Amrit Goddard MD Unavailable Phan Grant MD Unavailable [phone] Reason for Visit * Reason Comments Medication Refill Encounter Details Date Type Department Care Team (Late st Contact Info) Description 09/05/[address] 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 No / Unsure 08/21/2022 2:16 PM RN MANAGER documented as of this encounter Miscellaneous [...] Provider Dept 08/01/22 Telemedicine Jack Dukes MD [facility] Neurology [facility] Showing recent visits within past 365 days and meeting all other requirements Future Appointments No visits were found meeting these conditions. Showing future appointments within next 90 days and meeting all other requirements MANAGER documented in this encounter Plan of Treatment Upcoming Encounters Date Type Department Care Team (Late st Contact Info) Description 08/25/2025 2:00 PM RN MANAGER [facility] [address] [place] [address] Phan Grant MD [address] [place], [place] [phone] Discharge Disposition: Discharged to home or Selfcare documented as of this encounter Visit Diagnoses Diagnosis Seizures (HCC) Other convulsions documented in this encounter Care Teams Circulation Crew Leader Relationship Specialty Start Date End Date Arianne Alarcon APRN, EFFICIENCY ENGINEER [address] [place] [address] PCP - General Family Medicine 08/29/16 Jack Dukes MD [address] [place] [address] Consulting Physician Neurology 08/21/16 Lito Chatterjee MD [address] [place] [address] Consulting Physician General Surgery 04/27/19 Gustabo Falk MD [address] [place] [address] Consulting Physician Radiation Oncology 04/27/19 Amrit Goddard MD [address] [address] Consulting Physician General Surgery 06/08/19 Phna Grant MD [address] [place] [address] Consulting Physician Medical Oncology 02/16/20 documented as of this encounter
== END 2025-02-17 19:23 | disposition left against medical advice (07) ==
LOC: ANHED 19:07
PROVIDERS: PCP Nurse Practitioner Family
DX: R56.9 Unspecified convulsions (principal)
CPT/HCPCS: 99199